=== PATIENT | female | born 1940 | race Caucasian/White ===

== ENCOUNTER 2020-03-19 05:17 | Inpatient (IN) | payer OTHER ==
--- OUTSIDE RECORDS SUMMARY | 2020-03-19 05:20 | XMS REPORT ---
:1940 Author Organization eClinicalWorks Care Team Providers Name Role Phone Pati Cruzh Provider Role Unavailable Allergies, Adverse Reactions, Alerts Substance Reaction Event Type N.K.D.A. Info Not Available Non Drug Allergy Problems Problem Type Condition Code Onset Dates Condition Statu s Problem Low back pain, unspecified back pain M54.5 Active laterality, unspecified chronicity, with sciatica presence unspecified Problem Atrial fibrillation, unspecified I48.91 Active type Problem Hypothyroidism, unspecified type E03.9 Active Assessment Medicare annual wellness visit, Z00.00 Active subsequent Problem Type 2 diabetes mellitus with E11.8 Active complication, without long-term current use of insulin Problem HTN (hypertension), benign I10 A ctive Problem Stage 3 chronic kidney disease N18.3 Active Problem Peripheral edema R60.9 Active Problem GERD without esophagitis K21.9 Act gloria Problem Mixed hyperlipidemia E78.2 Active Problem Other chronic pain G89.29 Active Medications Medication Code Code Instructions Start End Status Dosage System Date Date Gabapentin [facility] 03479825523 300 MG Orally Active 1 c apsule Three times a day Simvastatin [facility] 80585604832 20 MG Orally Active 1 t ablet Once a day in the evening [place] [facility] 69725899740 10-325 MG Active 1 tablet Orally every 6 as needed hrs Eliquis 5 mg [facility] 46694250939 5 mg by mouth Active o ne tablet twice daily Ranitidine HCl [facility] 00642611606 150 MG Orally Active 1 capsule Once a day at bedtime Losartan [facility] 21441172519 100 MG Orally Active 1 tab let Potassium Once a day Losartan [facility] 21148782037 100 MG Orally Active 1 tab let Potassium Once a day Carvedilol [facility] 41795176298 3.125 MG Orally Active 1 tab BID Acyclovir [facility] 86426297583 800 MG Orally Active 1 ta blet Once a day Levothyroxine [facility] 63276890500 125 MCG Orally Active 1 tablet Sodium Once a day on an empty stomach in the morning Tizanidine HCl [facility] 10431794624 4 MG Orally Active 1 tablet Three times a as needed day Carvedilol [facility] 27427320433 3.125 MG Orally Active 1 tab BID Simvastatin [facility] 00639299331 20 MG Orally Active 1 t ablet Once a day in the evening Amlodipine [facility] 84218925902 10 MG Orally Active 1 ta blet Besylate Once a day Furosemide [facility] 60760173130 20 MG Orally Active 1 ta blet Once a day Results No Known Results Summary Purpose eClinicalWorks Submission
--- OUTSIDE RECORDS SUMMARY | 2020-03-19 05:20 | XMS REPORT | Continuity of Care Document ---
:[address] [facility] [place] [place] Address [address] [place] [address] Care Team Providers Name Role Phone Unavailable Unavailable Unavailable Problems Condition Condition Condition Status Onset Resolution Last Treating Co mments Source Name Details Category Date Date Treatment Clinician Date Atrial Atrial Problem Active [facility] fibrillati fibrillati Felicia kes - on, on, Memoria unspecifie unspecifie l d type d type Outpati ent Clinics Low back Low back Problem [facility], [facility] - unspecifie unspecifie Me moria d back d back l pain pain Outpati laterality laterality en t , , Clinics unspecifie unspecifie d d chronicity chronicity , with , with sciatica sciatica presence presence unspecifie unspecifie d d Mixed Mixed Problem Active [facility] hyperlipid hyperlipid Felicia kes - emia emia Memoria l Outpati ent Clinics Other Other Problem Active [facility] chronic chronic [facility] - pain pain [facility] l [facility] Clinics HTN HTN Problem Active [facility] (hypertens (hypertens Felicia kes - ion), ion), Memoria benign benign l Outpati ent Clinics Hypothyroi Hypothyroi Problem Active [facility] dism, dism, [facility] - unspecifie unspecifie Me moria d type d type l Outpati ent Clinics Peripheral Peripheral Problem Active [facility] edema edema [facility] - Memoria l [facility] Clinics GERD GERD Problem Active [facility] without without [facility] - esophagiti esophagiti Me moria s s l Outpati ent Clinics Type 2 Type [address] [facility] diabetes diabetes [facility] - mellitus mellitus Memori a with with l complicati complicati Ou tpati on, on, ent without without Clinics long-term long-term current current use of use of insulin insulin Stage 3 Stage [address] [facility] chronic chronic [facility] - kidney kidney Memoria disease disease l Outpati ent Clinics Medicare Medicare Diagnosis Active [facility] annual annual [facility] - wellness wellness Memori a visit, visit, l subsequent subsequent [facility] ent [facility] Allergies, Adverse Reactions, Alerts This patient has no known allergies or adverse reactions. Medications Ordered Filled Start Stop Current Ordering Indication Dosage Frequency Signature Comments Components Source Medication Medication Date Date Medication? Clinician (SIG) Name Name Losartan Losartan Yes Terell [address] Potassium Potassium [facility] Sim[facility] Simvastatin Yes Terell [address] [facility] Cruz in the [facility] - evening [facility] ent [facility] Carvedilol Carvedilol Yes Terell [address] [facility] Cruz [facility] Chamberino Chamberino Yes Terell [address] [facility] Cruz as needed [facility] ent [facility] Acyclovir Acyclovir Yes Terell [address] [facility] Cruz [facility] Levothyroxi Levothyroxi Yes Terell [address] [facility] ne Sodium ne Sodium Cruz on an Domingo es - empty Memoria stomach in l the [facility] ent Clinics Furosemide Furosemide Yes Terell [address] [facility] Cruz [facility] ent [facility] Eliquis 5 Eliquis 5 Yes Terell one tablet [facility] mg mg Cruz [facility] ent [facility] Tizanidine Tizanidine Yes Terell [address] HCl HCl Cruz as needed [facility] Amlodipine Amlodipine Yes Terell [address] Besylate Besylate Cruz [facility] Gabapentin Gabapentin Yes Terell [address] [facility] Cruz [facility] ent [facility] Ranitidine Ranitidine Yes Teerll [address] [facility] HCl HCl Cruz at bedtime [facility] ent [facility] Simvastatin Simvastatin Yes Terell [address] [facility] in the [facility] - evening [facility] ent [facility] Losartan Losartan Yes Terell [address] Potassium Potassium Cruz [facility] Carvedilol Carvedilol Yes Terell [address] [facility] Cruz [facility] Immunizations Ordered Filled Immunization Date Status Comments Sour e Immunization Name Name FluAD FluAD 2019-06-[address] [facility]00 [facility] Procedures This patient has no known procedures. Encounters Start End Encounter Admission Attending Care Care Encounter Source Date/Time Date/Time Type Type Clinicians Facility Department ID 2020-02-21 2020-02-21 [facility] [id number] [facility] 14:00[facility]00 14:00:00 [facility] Medicine Outpati ent Clinics 2020-02-21 2020-02-21 [facility] [id number] 14:00:00 14:00:00 [facility] Medicine Outpati ent Clinics 2020-02-16 2020-02-16 [facility] [id number] 14:05:00 14:05:00 t [facility] Medicine Outpati ent Clinics 2019-12-04 2019-12-04 [facility] [id number] 15:27:00 15:27:00 [facility] Medicine Outpati ent Clinics 2019-11-21 2019-11-21 [facility] [id number] 14:45:00 14:45:00 [facility] Medicine Outpati ent Clinics 2019-11-08 2019-11-08 [facility] [id number] 16:47:00 16:47:00 [facility] Medicine Outpati ent Clinics 2019-11-03 2019-11-03 [facility] [id number] 14:29:00 14:29:00 [facility] Medicine Outpati ent Clinics 2019-06-15 2019-06-15 [facility] [id number] [facility] 14:45:00 14:45:00 [facility] Medicine Outpati ent Clinics 2019-03-16 2019-03-16 [facility] [id number] 14[facility]00:00 14:00:00 [facility] Medicine Outpati ent Clinics 2019-01-19 2019-01-19 [facility] [id number] 14:45:00 14:45:00 t [facility] Medicine Outpati ent Clinics 2018-12-14 2018-12-14 [facility] [id number] 14[facility]14:00 14:14:00 t [facility] Medicine Outpati ent Clinics 2018-12-14 2018-12-14 [facility] [id number] [facility] 14[facility]00:00 14:00:00 [facility] Medicine Outpati ent Clinics 2018-11-07 2018-11-07 [facility] [id number] 13:32:00 13:32:00 t [facility] Medicine Outpati ent Clinics 2018-09-15 2018-09-15 [facility] [id number] 14:00:00 14:00:00 [facility] Outpati ent Clinics Results This patient has no known results.
--- OUTSIDE RECORDS SUMMARY | 2020-03-19 05:20 | XMS REPORT ---
[...] type Problem Hypothyroidism, unspecified type E03.9 Active Problem Type 2 diabetes mellitus with E11.8 Active complication, without long-term current use of insulin Assessment Peripheral edema R60.9 Active Problem HTN (hypertension), benign I10 A ctive Assessment Microalbuminuria R80.9 Active Assessment History of fall within past 90 days Z91.81 Active Problem Stage 3 chronic kidney disease N18.3 Active Problem Peripheral edema R60.9 Active Problem GERD without esophagitis K21.9 Act gloria Problem Mixed hyperlipidemia E78.2 Active Problem Other chronic pain G89.29 Active Assessment Other chronic pain G89.29 Active Assessment GERD without esophagitis K21.9 Act gloria Assessment Stage 3 chronic kidney disease N18.3 Active Assessment Low back pain, unspecified back pain M54.5 Active laterality, unspecified chronicity, with sciatica presence unspecified Assessment Mixed hyperlipidemia E78.2 Active Assessment HTN (hypertension), benign I10 A ctive Assessment Type 2 diabetes mellitus with E11.8 Active complication, without long-term current use of insulin Assessment Atrial fibrillation, unspecified I48.91 Active type Assessment Hypothyroidism, unspecified type E03.9 Active Medications Medication Code Code Instructions Start End Status Dosage System Date Date Carvedilol ND 43041555591 3.125 MG Active 1 tab Orally BID Indomethacin ER ND 73336362106 75 MG Orally Active 1 capsule Once a day PRN with food SEVERE PAIN or milk Ranitidine HCl ND 52225232672 150 MG Orally Inactiv e 1 capsule Once a day at bedtime Levothyroxine ND 27598190345 125 MCG Orally Active 1 tablet Sodium Once a day on an empty stomach in the morning Tizanidine HCl [facility] 41124448886 4 MG Orally Active 1 tablet Three times a as needed day [place] [facility] 12292817696 10-325 MG Active 1 tablet Orally every 6 as needed hrs Levothyroxine [facility] 62137091902 125 MCG Orally Active 1 tablet Sodium Once a day on an empty stomach in the morning Losartan [facility] 52483509559 100 MG Orally Active 1 tab let Potassium Once a day Amlodipine [facility] 75314108304 10 MG Orally Active 1 ta blet Besylate Once a day Gabapentin [facility] 83353505352 300 MG Orally Active 1 c apsule Three times a day Furosemide [facility] 37505965033 20 MG Orally Active 1 ta blet Once a day Simvastatin [facility] 34546836207 20 MG Orally Active 1 t ablet Once a day in the evening PreserVision [facility] [address]-98 Active not AREDS defined Moxifloxacin HCl [facility] 96811084722 0.5 % Active 1 d rop Ophthalmic into Three times a affected day eye Acyclovir [facility] 65107726393 800 MG Orally Active 1 ta blet Once a day Eliquis 5 mg [facility] 13395317497 5 mg by mouth Active o ne tablet twice daily Results No Known Results Summary Purpose eClinicalWorks Submission
--- OUTSIDE RECORDS SUMMARY | 2020-03-19 05:20 | XMS REPORT ---
:1940 Author Organization eClinicalWorks Care Team Providers Name Role Phone Terell Cruz Provider Role Unavailable Allergies No Known Allergies Problems Problem Type Condition Code Onset Dates [...] Start End Status Dosage System Date Date Furosemide [facility] 15628496505 20 MG Orally Active 1 ta blet Once a day Carvedilol [facility] 21404742015 3.125 MG Orally Active 1 tab BID Tizanidine HCl [facility] 14080391292 4 MG Orally Active 1 tablet Three times a as needed day Levothyroxine [facility] 42687548746 125 MCG Orally Active 1 tablet Sodium Once a day on an empty stomach in the morning Levothyroxine [facility] 05618443933 150 MCG Orally Active 1 tablet Sodium Once a day on an empty stomach in the morning Amlodipine [facility] 61268860113 10 MG Orally Active 1 ta blet Besylate Once a day Simvastatin [facility] 24091967710 20 MG Orally Active 1 t ablet Once a day in the evening Gabapentin [facility] 73875876010 300 MG Orally Active 1 c apsule Three times a day Losartan [facility] 51429060706 100 MG Orally Active 1 tab let Potassium Once a day [place] [facility] 71122733559 10-325 MG Active 1 tablet Orally every 6 as needed hrs Eliquis 5 mg [facility] 61490297716 5 mg by mouth Active o ne tablet twice daily Acyclovir [facility] 31723265622 800 MG Orally Active 1 ta blet Once a day Ranitidine HCl [facility] 44836973642 150 MG Orally Active 1 capsule Once a day at bedtime Losartan [facility] 86753925931 100 MG Orally Active 1 tab let Potassium Once a day Carvedilol [facility] 10613684121 3.125 MG Orally Active 1 tab BID Simvastatin [facility] 20874038516 20 MG Orally Active 1 t ablet Once a day in the evening Results No Known Results Summary Purpose eClinicalWorks Submission
[2020-03-19 05:51] LABS: Absolute Lymphocytes (CBC) 0.9 K/uL (0.7-4.9); Basophils % 0.4 % (0-1.3); Hematocrit 36.3 % (36.0-45.0); Lymphocytes % 10.6 % (15.3-44.8); RBC Red Blood Cell Count 3.93 M/uL (3.86-4.86)
[2020-03-19 05:56] LABS: Protime INR 2.33
[2020-03-19 06:08] LABS: ALT/SGPT 13 U/L (12-78); AST/SGOT 14 U/L (15-37); Albumin 3.4 g/dL (3.4-5.0); Alkaline Phosphatase 107 U/L (45-117); BUN Blood Urea Nitrogen 19 mg/dL (7-18); Bicarbonate 25 mmol/L (21-32); Bilirubin Direct 0.3 mg/dL (0-0.2); Bilirubin Total 1.1 mg/dL (0.2-1.0); Glucose Level 173 mg/dL (74-106); Magnesium 1.7 mg/dL (1.8-2.4); NT PRO-BNP 2907 pg/mL (<450); Potassium 4.5 mmol/L (3.5-5.1); Protein, Total 7.1 g/dL (6.4-8.2); Sodium Level 137 mmol/L (136-145); Troponin (Emerg Dept Use Only) < 0.02 ng/mL (0.0-0.045)
--- NOTE | 2020-03-19 06:38 | ER ---
Nurse's Notes [facility] Name: Claudia Myers Age: 80 yrs Sex: Female : 1940 Arrival Date: 03/19/2020 Time: 05:18 Bed 6 Private MD: Diagnosis: CHF Exacerbation Presentation: 03/19 05:25 Chief complaint: EMS states: "pt is reporting shortness of breath today with RANDY ankle jd3 swelling. she is not reporting any pain, just that it is hard to breath.". Coronavirus screen: Proceed with normal triage. Ebola Screen: Patient negative for fever greater than or equal to 101.5 degrees Fahrenheit, and additional compatible Ebola Virus Disease symptoms. Initial Sepsis Screen: Does the patient meet any 2 criteria? No. Patient's initial sepsis screen is negative. Does the patient have a suspected source of infection? No. Patient's initial sepsis screen is negative. Risk Assessment: Do you want to hurt yourself or someone else? Patient reports no desire to harm self or others. Onset of symptoms was March 19, 2020. 05:25 Method Of Arrival: EMS: [facility] jd3 05:25 Acuity: KEVIN 3 jd3 05:25 Care prior to arrival: IV initiated. 20 GA, in the right antecubital area. jd3 Triage Assessment: 05:35 Respiratory: Reports shortness of breath at rest Onset: The symptoms/episode jd3 began/occurred this morning, the patient has mild shortness of breath Denies cough. Historical: - Allergies: 05:33 Bactrim DS; jd3 - Home Meds: 05:33 amlodipine 10 mg tab 1 tab once daily [Active]; losartan 100 mg oral tab 1 tab once jd3 daily [Active]; levothyroxine 125 mcg tab 1 tab once daily [Active]; simvastatin 20 mg Oral tab 1 tab once daily [Active]; carvedilol 3.125 mg oral tab 1 tab 2 times per day [Active]; gabapentin 300 mg oral cap 1 cap 3 times per day [Active]; Eliquis 5 mg oral tab 1 tab 2 times per day [Active]; - PMHx: 05:33 Diabetes - NIDDM; Hypertension; Atrial Fib; jd3 - PSHx: 05:33 Cholecystectomy; Appendectomy; jd3 - Immunization history:: Adult Immunizations up to date. - Social history:: Smoking status: Patient denies any tobacco usage or history of. Screenin:36 Abuse screen: Denies threats or abuse. Nutritional screening: No deficits noted. jd3 Tuberculosis screening: No symptoms or risk factors identified. Fall Risk Ambulatory Aid- None/Bed Rest/Nurse Assist (0 pts). Gait- Normal/Bed Rest/Wheelchair (0 pts) Mental Status- Oriented to own ability (0 pts). Total Lazaro Fall Scale indicates No Risk (0-24 pts). Assessment: 05:33 General: Appears in no apparent distress. uncomfortable, Behavior is cooperative, jd3 appropriate for age, anxious. Pain: Denies pain. Neuro: Level of Consciousness is awake, alert, obeys commands, Oriented to person, place, time, situation. Cardiovascular: Capillary refill < 3 seconds Patient's skin is warm and dry. Rhythm is atrial fibrillation. Respiratory: Reports shortness of breath at rest Airway is patent Respiratory effort is even, unlabored, Respiratory pattern is regular, symmetrical, Breath sounds with wheezes bilaterally. GI: No signs and/or symptoms were reported involving the gastrointestinal system. : No signs and/or symptoms were reported regarding the genitourinary system. EENT: No signs and/or symptoms were reported regarding the EENT system. Derm: Skin is intact, Skin is dry, Skin is normal, Skin temperature is warm. Musculoskeletal: Circulation, motion, and sensation intact. Range of motion: intact in all extremities. 06:15 Reassessment: Patient appears in no apparent distress at this time. Patient and/or jd3 family updated on plan of care and expected duration. Pain level reassessed. Patient is alert, oriented x 3, equal unlabored respirations, skin warm/dry/pink. Patient states symptoms have improved. Vital Signs: 05:29 BP 184 / 50; Pulse 75; Resp 19 S; Temp 98.7(TE); Pulse Ox 95% on R/A; Weight 81.65 kg jd3 (R); Height 5 ft. 6 in. (167.64 cm) (R); Pain 0/10; 06:14 BP 164 / 46; Pulse 62; Resp 19 S; Pulse Ox 97% on 2 lpm NC; jd3 08:52 BP 159 / 53; Pulse 67; Resp 17; Pulse Ox 99% on 2 lpm NC; jl7 05:29 Body Mass Index 29.05 (81.65 kg, 167.64 cm) jd3 ED Course: 05:18 Patient arrived in ED. sg 05:22 Jose Jeffery MD is Attending Physician. 7 05:24 Lino Benitez, RN is Primary Nurse. jd3 05:29 Triage completed. jd3 05:30 Arm band placed on. jd3 05:36 Patient has correct armband on for positive identification. Bed in low position. Call [facility] light in reach. Side rails up X 1. court recording monitor on. Pulse ox on. NIBP on. 05:45 Maintain EMS IV. Dressing intact. Good blood return noted. Site clean \\T\\ dry. Gauge \\T\\ raisa 3 site: 20 G right AC. IV. 05:54 XRAY Chest (1 view) In Process Unspecified. EDMS 06:37 Toan Freire is Hospitalizing Provider. [facility] 08:50 No provider procedures requiring assistance completed. Patient admitted, IV remains in [facility] place. intact, No redness/swelling at site. Administered Medications: 06:39 Drug: Lasix 20 mg Route: IVP; Site: right antecubital; jd3 Outcome: 06:38 Decision to Hospitalize by Provider. [facility] 08:50 Admitted to Tele accompanied by [facility], via wheelchair, room 219, with chart, Report [facility] called to MARK Jane 08:50 Condition: stable 08:50 Discharge instructions given to patient, Instructed on the need for admit, Demonstrated understanding of instructions. 09:14 Patient left the ED. hb Signatures: Dispatcher [employer] EDSD Todd Flores, MARK FLORES Neli Barragan RN RN Ronen Robles RN RN [facility] Lino Benitez, Jose Lux RN, MD MD [facility]
--- NOTE | 2020-03-19 06:38 | EDPHYS ---
Physician Documentation [facility] Name: Claudia Myers Age: 80 yrs Sex: Female : 1940 Arrival Date: 03/19/2020 Time: 05:18 Bed 6 Private MD: ED Physician Jose Jeffery HPI: 03/19 05:29 This 80 yrs old Female presents to ER via EMS with complaints of Shortness Of mh7 Breath. 05:29 The patient has shortness of breath at rest. Onset: The symptoms/episode began/occurred mh7 yesterday. Duration: The symptoms are intermittent, with no pattern. The patient's shortness of breath is aggravated by nothing, is alleviated by nothing. Associated signs and symptoms: Pertinent negatives: chest pain, non-productive cough, productive cough, diaphoresis, dizziness, fever, hemoptysis, loss of consciousness, nausea, numbness in extremities, visual changes, vomiting. Severity of symptoms: At their worst the symptoms were moderate just prior to arrival, in the emergency department the symptoms have improved moderately. The patient has experienced similar episodes in the past, a few times. Historical: - Allergies: 05:33 Bactrim DS; jd3 - Home Meds: 05:33 amlodipine 10 mg tab 1 tab once daily [Active]; losartan 100 mg oral tab 1 tab once jd3 daily [Active]; levothyroxine 125 mcg tab 1 tab once daily [Active]; simvastatin 20 mg Oral tab 1 tab once daily [Active]; carvedilol 3.125 mg oral tab 1 tab 2 times per day [Active]; gabapentin 300 mg oral cap 1 cap 3 times per day [Active]; Eliquis 5 mg oral tab 1 tab 2 times per day [Active]; - PMHx: 05:33 Diabetes - NIDDM; Hypertension; Atrial Fib; jd3 - PSHx: 05:33 Cholecystectomy; Appendectomy; jd3 - Immunization history:: Adult Immunizations up to date. - Social history:: Smoking status: Patient denies any tobacco usage or history of. ROS: 05:29 Constitutional: Negative for fever, chills, and weight loss, Eyes: Negative for injury, mh7 pain, redness, and discharge, ENT: Negative for injury, pain, and discharge, Neck: Negative for injury, pain, and swelling, Cardiovascular: Negative for chest pain, palpitations, and edema, Abdomen/GI: Negative for abdominal pain, nausea, vomiting, diarrhea, and constipation, Back: Negative for injury and pain, : Negative for injury, bleeding, discharge, and swelling, MS/Extremity: Negative for injury and deformity, Skin: Negative for injury, rash, and discoloration, Neuro: Negative for headache, weakness, numbness, tingling, and seizure, Psych: Negative for depression, anxiety, suicide ideation, homicidal ideation, and hallucinations, Allergy/Immunology: Negative for hives, rash, and allergies, Endocrine: Negative for neck swelling, polydipsia, polyuria, polyphagia, and marked weight changes, Hematologic/Lymphatic: Negative for swollen nodes, abnormal bleeding, and unusual bruising. Exam: 05:29 Constitutional: This is a well developed, well nourished patient who is awake, alert, mh7 and in no acute distress. Head/Face: Normocephalic, atraumatic. Eyes: Pupils equal round and reactive to light, extra-ocular motions intact. Lids and lashes normal. Conjunctiva and sclera are non-icteric and not injected. Cornea within normal limits. Periorbital areas with no swelling, redness, or edema. ENT: Nares patent. No nasal discharge, no septal abnormalities noted. Tympanic membranes are normal and external auditory canals are clear. Oropharynx with no redness, swelling, or masses, exudates, or evidence of obstruction, uvula midline. Mucous membranes moist. Neck: Trachea midline, no thyromegaly or masses palpated, and no cervical lymphadenopathy. Supple, full range of motion without nuchal rigidity, or vertebral point tenderness. No Meningismus. Chest/axilla: Normal chest wall appearance and motion. Nontender with no deformity. No lesions are appreciated. Cardiovascular: Regular rate and rhythm with a normal S1 and S2. No gallops, murmurs, or rubs. Normal PMI, no JVD. No pulse deficits. 05:29 Abdomen/GI: Soft, non-tender, with normal bowel sounds. No distension or tympany. No guarding or rebound. No evidence of tenderness throughout. Back: No spinal tenderness. No costovertebral tenderness. Full range of motion. Skin: Warm, dry with normal turgor. Normal color with no rashes, no lesions, and no evidence of cellulitis. MS/ Extremity: Pulses equal, no cyanosis. Neurovascular intact. Full, normal range of motion. Neuro: Awake and alert, GCS 15, oriented to person, place, time, and situation. Cranial nerves II-XII grossly intact. Motor strength 5/5 in all extremities. Sensory grossly intact. Cerebellar exam normal. Normal gait. Psych: Awake, alert, with orientation to person, place and time. Behavior, mood, and affect are within normal limits. 05:29 Respiratory: the patient does not display signs of respiratory distress, Respirations: normal, Breath sounds: rhonchi, that are mild, are located in both bases, Respiratory rate: normal 05:29 Chest/axilla: 7 05:29 Cardiovascular: Rate: normal, Rhythm: irregularly irregular, Pulses: no pulse deficits are appreciated, Heart sounds: normal, normal S1and S2, Edema: 1+ edema to level of , pedal edema, that is mild, JVD: is not appreciated. 05:29 ECG was reviewed by the Attending Physician. Vital Signs: 05:29 BP 184 / 50; Pulse 75; Resp 19 S; Temp 98.7(TE); Pulse Ox 95% on R/A; Weight 81.65 kg jd3 (R); Height 5 ft. 6 in. (167.64 cm) (R); Pain 0/10; 06:14 BP 164 / 46; Pulse 62; Resp 19 S; Pulse Ox 97% on 2 lpm NC; jd3 08:52 BP 159 / 53; Pulse 67; Resp 17; Pulse Ox 99% on 2 lpm NC; jl7 05:29 Body Mass Index 29.05 (81.65 kg, 167.64 cm) jd3 MDM: 05:36 Patient medically screened. 7 06:35 Differential diagnosis: Anemia Anxiety Reaction asthma, Bronchitis CHF exacerbation, mh7 Chronic Obstructive Pulmonary Disease Myocardial Infarction pneumonia, Pneumothorax pulmonary edema. Data reviewed: vital signs, nurses notes, EMS record, old medical records, lab test result(s), cardiac enzymes, CBC, electrolytes, EKG, radiologic studies, plain films. Data interpreted: color television console monitor: rate is 62 beats/min, rhythm is irregularly irregular, Interpretation: atrial fibrillation, Pulse oximetry: on 4L(s) per nasal canula, is 97 %. Interpretation: acceptable. Counseling: I had a detailed discussion with the patient and/or guardian regarding: the historical points, exam findings, and any diagnostic results supporting the discharge/admit diagnosis, the presence of at least one elevated blood pressure reading (>120/80) during this emergency department visit, lab results, radiology results, the need for further work-up and treatment in the hospital. 03/19 05:29 Order name: Basic Metabolic Panel; Complete Time: 06:26 03/19 05:29 Order name: CBC with Diff; Complete Time: 06:04 03/19 05:29 Order name: LFT's; Complete Time: 06:26 03/19 05:29 Order name: Magnesium; Complete Time: 06:26 03/19 05:29 Order name: NT PRO-BNP; Complete Time: 06:26 03/19 05:29 Order name: PT-INR; Complete Time: 06:04 03/19 05:29 Order name: Troponin (emerg Dept Use Only); Complete Time: 06:26 03/19 05:29 Order name: XRAY Chest (1 view) [facility] 03/19 05:29 Order name: EKG; Complete Time: 05:30 03/19 05:29 Order name: Cardiac monitoring; Complete Time: 05:37 7 03/19 05:29 Order name: EKG - Nurse/Tech; Complete Time: 05:37 03/19 05:29 Order name: IV Saline Lock; Complete Time: 05:44 03/19 05:29 Order name: Labs collected and sent; Complete Time: 05:44 03/19 05:29 Order name: O2 Per Protocol; Complete Time: 05:37 03/19 05:29 Order name: O2 Sat Monitoring; Complete Time: 05:37 mh7 EC:29 Rate is 68 beats/min. Rhythm is irregularly irregular. QRS [place] is Normal. CO interval mh7 is normal. QRS interval is normal. QT interval is normal. No Q waves. T waves are Normal. No ST changes noted. Clinical impression: Atrial Fibrillation. Administered Medications: 06:39 Drug: Lasix 20 mg Route: IVP; Site: right antecubital; jd3 Disposition: 03/19/20 06:38 Hospitalization ordered by Toan Freire for Observation. Preliminary diagnosis is CHF Exacerbation. - Bed requested for Telemetry/MedSurg (observation). - Status is Observation. hb - Condition is Stable. - Problem is an acute exacerbation. - Symptoms have improved. Signatures: Dispatcher [employer] Sola Salazar RN RN Neli Barragan RN RN Lino Khalil RN RN jJose Alfaro MD MD mh7 Corrections: (The following items were deleted from the chart) 08: 06:38 Hospitalization Ordered by Toan Freire for Observation. Preliminary diagnosis dw is CHF Exacerbation. Bed requested for Telemetry/MedSurg (observation). Status is Observation. Condition is Stable. Problem is an acute exacerbation. Symptoms have improved. mh7 09:14 08:14 03/19/2020 06:38 Hospitalization Ordered by Toan Freire for Observation. hb Preliminary diagnosis is CHF Exacerbation. Bed requested for Telemetry/MedSurg (observation). Status is Observation. Condition is Stable. Problem is an acute exacerbation. Symptoms have improved. dw
[2020-03-19] MEDS ORDERED: FUROSEMIDE 20 MG/ 2ML VIAL ONE (06:42)
--- NOTE | 2020-03-19 08:29 | RAD REPORT ---
EXAM DESCRIPTION: RAD - Chest Single View - 03/19/2020 5:54 am CLINICAL HISTORY: SOB, bilateral lower extremity swelling COMPARISON: July 2017 TECHNIQUE: AP portable chest image was obtained 03/19/2020 5:54 am . FINDINGS: Diffuse interstitial opacification is present increased from a baseline prominent pattern. Patchy alveolar opacities are present. Heart size is upper normal. Vasculature is engorged. No measu rable pleural effusion and no pneumothorax. No acute bony abnormality seen. No acute aortic findings suspected. IMPRESSION: Heart, vasculature and lung markings are all prominent. Given the chest findings and lower extremity clinical history, CHF/volume overload is favored. Bilate ral patchy pneumonia is not excluded but felt to be lesser in likelihood.
[2020-03-19] MEDS ORDERED: ONDANSETRON 4 MG/2 ML VIAL IV PRN (09:23)
[2020-03-19] MEDS: APIXABAN 5 MG TABLET PO SCH ×2 (09:48→20:48)
[2020-03-19] MEDS ORDERED: DIPHENHYDRAMINE 25 MG TAB/CAP PO PRN (10:18)
[2020-03-19] MEDS: FUROSEMIDE 40 MG/4 ML VIAL IV SCH ×2 (10:28→16:29)
[2020-03-19] MEDS: carvediloL 6.25 MG TAB PO SCH ×2 (10:29→20:46)
[2020-03-19 11:29] VITALS: BMI 29.5
[2020-03-19] MEDS: FEXOFENADINE 180 MG TAB PO SCH (12:48)
[2020-03-19] MEDS: HYDROCODONE/APAP 10/325 TAB PO PRN (16:29)
[2020-03-19] MEDS ORDERED: METOPROLOL TAR 25 MG TAB PO SCH (18:00)
[2020-03-19] MEDS: ATORVASTATIN 10 MG TAB PO SCH (20:45)
[2020-03-19] MEDS: AMLODIPINE 10 MG TAB PO SCH (20:46)
[2020-03-19] MEDS ORDERED: HOME MED 1 EA UNK (Simvastatin [Simvastatin] 1 TAB) PO SCH (21:00)
[2020-03-19] MEDS: TIZANIDINE 4 MG TABLET PO PRN (21:41)
--- NOTE | 2020-03-19 22:19 | HP ---
Date of Admission: 03/19/2020 Primary Care Physician: Dr. Cruz. Chief Complaint: Shortness of breath. Code Status: Full code. Patient does not have any medical power of nursing director or living will. History Of Present Illness: Patient is a 80-year-old female with past medical history of hyperlipide jeremy, hypertension, leaky heart valve, atrial fibrillation, congestive heart failure, hypothyroidism, comes in with sudden shortness of breath. Patient reports worsening shortness of breath over the pas t day or so. Denies any changes in her medications. She only takes a Lasix every third day as neede d and she does not weigh herself daily. She does report some swelling in her legs, which is worse th an usual. She does sleep in a recliner and report orthopnea. Otherwise, denies any chest pain, feve r, chills, cough. No exposure to the norovirus at this time. Patient came into the ER for further e valuation. Her symptoms are constant, moderate, progressively worsening. In the ER, she was found t o have blood pressure of 184/50. She was afebrile. She was started on supplemental oxygen. Her krystle st x-ray showed prominent markings, CHF, volume overload findings. Workup revealed a BNP of 2900. W maria ines blood cell count was normal. Troponin was negative. Patient was then referred for admission. When seen in the ER, she was awake, alert, oriented x3, in some mild distress. Past Medical History: Hypertension; atrial fibrillation, on anticoagulation; congestive heart failur e; hypothyroidism; hyperlipidemia. Past Surgical History: Cholecystectomy. Allergies: SULFAMETHOXAZOLE, TRIMETHOPRIM. Medications: As per medication reconciliation list, reviewed. Social History: Patient denies any tobacco use, alcohol use, or illicit drug use. Patient lives in a mobile home in her son's backyard. She is fairly independent in her activities of daily living. D oes use a walker. Family History: Mother had aortic aneurysm. Diabetes also runs in the family. Review of Systems: Eleven point system reviewed, negative except as per HPI. Physical Examination: Vital Signs: Temperature 98.7, heart rate 75, blood pressure 184/50, respirations 19, O2 of 95% on 2 L via nasal cannula. General: Awake, alert, oriented x3. Elderly female, in some mild respiratory distress, ill-appearin ru HEENT: Normocephalic, atraumatic. PERRLA, EOMI. Moist mucous membranes. Poor dentition. Conjunct ivae are anicteric. Neck: Supple, trachea midline. CV: S1, S2. Patient has a systolic murmur 3/6. Peripheral pulses are present. Respiratory: Diminished breath sounds at the bases. Some crackles heard. No wheezing or stridor. Patient is slightly tachypneic. No use of accessory muscles. Gastrointestinal: Abdomen is soft, nontender, nondistended. Positive bowel sounds. No guarding or rigidity. Extremities: No clubbing, cyanosis. Patient has lower extremity edema, worse on the right. No calf tenderness. Neuro: Cranial nerves 3 through 12 intact grossly. No focal neurological deficits. Speech is humberto l. Strength is symmetric, bilateral upper and lower extremities. Sensation is intact to light touch . Skin: No rashes. Normal skin turgor. Psych: Mood is okay. Affect is full. Insight and judgment are good. Laboratory Data: Sodium 137, potassium 4.5, chloride 106, CO2 of 25, BUN 19, creatinine 1.13, glucos e 173, calcium 8.5, magnesium 1.7, AST 14, ALT 13, total bilirubin 1.1, alkaline phosphatase 107. Tr oponin less than 0.02. BNP 2907, albumin 3.4. INR 2.33. WBC 8.8, H and H 12.1 and 36.3, platelets 181, neutrophils 80%. Chest x-ray, heart vasculature and lung markings are prominent given the chest findings and lower ext remity clinical history. CHF volume overload is favored. Bilateral patchy pneumonia is not excluded , but felt to be lesser in likelihood, personally reviewed. Assessment: 80-year-old female with: 1.Acute congestive heart failure, exacerbation likely diastolic dysfunction. Last echocardiogram fr om 2017 shows EF of 77%. She has aortic sclerosis, but no stenosis. Also has mild atrial, mitral, a nd tricuspid regurgitation. We will start on CHF guidelines with Lasix, beta-saul, and ARB. Case discussed with Dr. Esqueda. He recommends doubling up the dose of Coreg. We will continue on fluid restrictions and sodium restriction. Patient does not follow any dietary restrictions at home, willard y weights. We will monitor I's and O's strictly. 2.Essential hypertension, not well controlled. We will give her home medications now. 3.Atrial fibrillation, permanent. We will resume Eliquis. Continue Coreg for rate control. 4.Mixed hyperlipidemia. We will continue statin. 5.Hypothyroidism. Continue Synthroid. 6.Hypomagnesemia. We will replace and monitor. 7.Seasonal allergies. Patient takes 25 mg of Benadryl twice a day. We will switch over to Sunitha and use Benadryl only as needed. 8.Chronic back pain, midline, without sciatica. Patient takes [place]. Does see Pain Management as a n outpatient. We will resume home medications. 9.Deep vein thrombosis prophylaxis. Patient is already on Eliquis. Plan: Admit patient to Med-Surg, place as inpatient. Length of stay greater than 2 midnights. RICHIE Voice ID: [id number]
[2020-03-20] MEDS: ACETAMINOPHEN 500 MG TAB PO PRN ×2 (02:52→14:33)
[2020-03-20 05:44] LABS: Absolute Lymphocytes (CBC) 1.3 K/uL (0.7-4.9); Basophils % 0.4 % (0-1.3); Hematocrit 34.6 % (36.0-45.0); Lymphocytes % 21.1 % (15.3-44.8); MPV 8.5 fL (7.6-11.3)
[2020-03-20 05:50] LABS: Albumin 3.3 g/dL (3.4-5.0); Bilirubin Total 1.2 mg/dL (0.2-1.0); Magnesium 1.9 mg/dL (1.8-2.4); Potassium 4.3 mmol/L (3.5-5.1); Protein, Total 6.6 g/dL (6.4-8.2)
[2020-03-20] MEDS: LEVOTHYROXINE SOD 0.125 MG TAB PO SCH (06:12)
--- NOTE | 2020-03-20 06:30 | CON ---
Date of Consultation: 03/19/[address] The patient admitted to Dr. Glez's service on 03/19/2020. Reason For Consultation: CHF exacerbation. History Of Present Illness: Ms. Myers is a 80-year-old white woman, has had a history of hypertensio n, diabetes, atrial fibrillation. She came in with shortness of breath and pedal edema that has been going on for about a week or 2. She denied any fever or chills or cough. Denied any PND, orthopnea , but has had pedal edema, shortness of breath with exertion. Denied any chest pain, nausea, vomitin g, diaphoresis. By the time, I saw her, she has received IV Lasix and she is already slightly improv ing. Allergies: SHE IS ALLERGIC TO BACTRIM. Review of Systems: Negative. Social History: Negative. Family History: Negative. Medications: At home include, 1.Norvasc. 2.Losartan. 3.Levothyroxine. 4.Zocor. 5.Carvedilol. 6.Gabapentin. 7.Eliquis 5 mg b.i.d. Past Medical History: Include, hypertension, hypothyroidism, dyslipidemia, diabetes, atrial fibrilla tion, and neuropathy. Physical Examination: Vital Signs: When I saw her, her heart rate was 66, her blood pressure was 175/74. She was in atria l fibrillation rate of 66. She weighed 182 pounds, her O2 saturation was 96% on 3 L of nasal cannula . HEENT: Negative. Neck: Supple with no bruits. Chest: Reveals rales at both bases. Cardiac: Revealed atrial fibrillation. No murmurs, gallops, or rubs. Abdomen: Benign. Extremities: Revealed 2+ edema to the knees. Skin: Dry and intact. Neurological: She was nonfocal. Diagnostic Data: Showed a creatinine of 1.13. Her hemoglobin was 12.1. Her INR was 2.33. Her gluc ose was 173. Magnesium was 1.7. Her potassium was 4.5. Her troponin was negative. Her BNP was 290 7. Chest x-ray was consistent with congestive heart failure versus volume overload. Impression And Plan: 1.Acute congestive heart failure, most likely diastolic. 2.Chronic atrial fibrillation. 3.Hypertension. 4.Dyslipidemia. 5.Diabetes. 6.Neuropathy. The patient is already on Eliquis for her atrial fibrillation. Her rate is well controlled. Her hyp ertension is poorly controlled and I think with her congestive heart failure I would like to double u p her Coreg to 6.25 b.i.d. Continue IV Lasix at 40 mg b.i.d. Get an echocardiogram today. I think doing an outpatient stress test would be reasonable on her. We will see how she does with diuresis. Hopefully, we will send her home tomorrow depending what the echocardiogram shows. KENZIE/DASHA Voice ID: [id number] Report ID: [id number]
--- NOTE | 2020-03-20 07:59 | ECHO ---
HEIGHT: 5 ft 6 in WEIGHT: 182 lb 14.4 oz DATE OF STUDY: 03/19/[address]: Niko Glez MD 2-DIMENSIONAL: YES M.MODE: YES DOPPLER: YES COLOR FLOW: YES TDS: NO PORTABLE: NO DEFINITY: NO BUBBLE STUDY: NO DIAGNOSIS: CONGESTIVE HEART FAILURE CARDIAC HISTORY: CATHERIZATION: NO SURGERY: NO PROSTHETIC VALVE: NO PACEMAKER: NO MEASUREMENTS (cm) DIASTOLIC (NORMALS) SYSTOLIC (NORMALS) IVSd 1.2 (0.6-1.2) LA Diam 4.0 (1.9-4.0) LVEF 76% LVIDd 5.3 (3.5-5.7) LVIDs 2.9 (2.0-3.5) %FS 45% LVPWd 1.2 (0.6-1.2) Ao Diam 2.6 (2.0-3.7) 2 DIMENSIONAL ASSESSMENT: RIGHT ATRIUM: NORMAL LEFT ATRIUM: NORMAL RIGHT VENTRICLE: NORMAL LEFT VENTRICLE: NORMAL TRICUSPID VALVE: NORMAL MITRAL VALVE: MITRAL ANNULAR CALCIFICATION PULMONIC VALVE: NORMAL AORTIC VALVE: STENOTIC PERICARDIAL EFFUSION: NONE AORTIC ROOT: NORMAL LEFT VENTRICULAR WALL MOTION: NORMAL EJECTION FRACTION. DOPPLER/COLOR FLOW: MILD TRICUSPID REGURGITATION - MILD AORTIC REGURGITATION. MODERATE AORTIC STENOSIS - AREA 1.2 CENTIMETERS SQUARED. COMMENTS: NORMAL LEFT VENTRICULAR SIZE AND FUNCTION. MITRAL ANNULAR CALCIFICATION. MODERATE AORTIC STENOSIS 1.3 CENTIMETERS SQUARED. MILD TRICUSPID REGURGITATION, RIGHT VENTRICULAR SYSTOLIC PRESSURE 45mmHg - MODERATE PULMONARY HYPERTENSION. MILD AORTIC REGURGITATION. TECHNOLOGIST: ARISTEO GOLDSTEIN
[2020-03-20] MEDS: APIXABAN 5 MG TABLET PO SCH ×2 (08:17→22:02)
[2020-03-20] MEDS: carvediloL 6.25 MG TAB PO SCH ×2 (08:17→22:00)
[2020-03-20] MEDS: FEXOFENADINE 180 MG TAB PO SCH (08:17)
[2020-03-20] MEDS: FUROSEMIDE 40 MG/4 ML VIAL IV SCH ×2 (08:17→16:33)
[2020-03-20] MEDS: LOSARTAN POTASSIUM 50 MG TABLET PO SCH (08:18)
[2020-03-20] MEDS: POTASSIUM CL SA 10 MEQ TAB PO SCH (08:18)
[2020-03-20] MEDS: HYDROCODONE/APAP 10/325 TAB PO PRN ×2 (08:20→16:32)
--- NOTE | 2020-03-20 12:26 | EKG ---
Test Date: 2020-03-19 Test Time: 05:22:54 Rail Assembler: MEASUREMENT RESULTS: Intervals: Rate: 68 AL: QRSD: 94 QT: 386 QTc: 410 [place]: P: AL: QRS: 35 T: 51 INTERPRETIVE STATEMENTS: Atrial fibrillation Nonspecific ST and T wave abnormality, probably digitalis effect Abnormal ECG Compared to ECG 08/10/2017 23:49:33 Ventricular premature complex(es) no longer present Left bundle-branch block no longer present ST (T wave) deviation still present Electronically Signed On 03-20-20 12:22:36 CDT by Hamlet Esqueda
--- NOTE | 2020-03-20 15:27 | RAD REPORT ---
EXAM DESCRIPTION: CT - Angio Aorta For Dissection - 03/20/2020 2:57 pm CLINICAL HISTORY: abd pain, chest pain, r.out dissection COMPARISON: Portable chest March 19, CT abdomen and pelvis July 2017 TECHNIQUE: Dynamically enhanced 3 mm thick images of the chest, abdomen, and upper pelvis were obtai cyrus during administration of approximately 150mL Isovue 370 IV contrast. Sagittal and coronal reconst ruction images were generated using MIP and reviewed. Exam utilizes a protocol to evaluate entire cou rse of the aorta. All CT scans are performed using dose optimization technique as appropriate and may include automated exposure control or mA/KV adjustment according to patient size. FINDINGS: Aorta is normal in diameter with no dissection or other acute aortic findings. Calcificati ons are present along the silverman of the aorta relatively mild for age. Reconstruction images show no s ignificant findings. No significant pulmonary artery finding. Borderline to mild cardiomegaly is present. No pericardial e ffusion. No dense mass or consolidation. Ground-glass opacification is seen throughout the lung springer. This i s most likely part of failure/ volume overload process. Posterior gutter atelectasis noted on the lef t. Small bilateral pleural effusions are present. Hilar and subcarinal mild lymphadenopathy is probably reactive. No chest wall mass or abnormal axilla ry lymphadenopathy. Very dense calcifications are seen in the celiac and splenic arteries without significant stenosis id entifiable. Patient has significant superior mesenteric artery calcification with probable 60% stenos is 15 mm from the origin. Dense renal artery calcifications are present. Stenosis is questionable. Fo llow-up could be obtained if the patient has uncontrolled hypertension. Liver and spleen show no focal abnormalities. Pancreatic atrophy is present without mass. Gallbladder is absent. No biliary tree dilatation. Moderate stool volume through much of the colon. Rectum is di stended. No acute bowel process. Uterus and ovaries show no suspicious findings. No free air, free fl uid or inflammatory stranding. No urinary bladder abnormality. No mass or bulky lymphadenopathy. Postsurgical changes are evident along the anterior abdominal wall. No hernia defects seen. IMPRESSION: Negative CT scan of the aorta for aneurysm, dissection or other acute finding. Atheroscl erotic calcifications are present but mild for age. Failure/volume overload changes are seen in the lung parenchyma with small bilateral pleural effusion s. 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 No other significant findings on chest, abdomen and upper pelvis examination.
--- NOTE | 2020-03-20 19:21 | PN ---
Date of Progress Note: 03/20/2020 Subjective: Patient seen and examined. Chart reviewed and case discussed with RN. Patient now comp laining of abdominal pain and headache, otherwise states shortness of breath has improved. Medications: List reviewed. Physical Examination: Vital Signs: Temperature 97.9, heart rate 84, blood pressure 152/66, respirations 16, O2 97% on room air. General: Awake, alert, oriented x3. Elderly female, some mild distress. CV: S1, S2. Irregularly irregular. Peripheral pulses present. Respiratory: Minimal diminished breath sounds. Crackles have improved. No wheezing or stridor. Gastrointestinal: Abdomen is soft, nontender, nondistended. Positive bowel sounds. No guarding or rigidity. Extremities: No clubbing or cyanosis. Patient does have peripheral edema 2+. Laboratory Data: Sodium 139, potassium 4.3, chloride 104, CO2 of 29, BUN 18, creatinine 1.15, glucos e 120, calcium 8.4, magnesium 1.9. WBC 5.9, H and H 11.7 and 34.6, platelets 180. Assessment: 1.A 80-year-old female with acute congestive heart failure exacerbation, diastolic dysfunction. Ech ocardiogram done shows ejection fraction of 76%. Patient also has moderate aortic stenosis, tricuspi d regurgitation, and moderate pulmonary hypertension. 2.Moderate aortic stenosis. 3.Moderate pulmonary hypertension. 4.Abdominal pain, generalized. We will obtain CT scan of the abdomen to rule out aortic dissection. 5.Essential hypertension. Blood pressure medications were adjusted, better controlled, now in the 1 50s. 6.Atrial fibrillation, chronic, permanent. Continue Eliquis. Continue Coreg for rate control. 7.Mixed hyperlipidemia. Continue statin. 8.Hypothyroidism. Continue Synthroid. 9.Hypomagnesemia, replaced. Continue to monitor. 10.Seasonal allergies. Continue Sunitha. 11.Chronic back pain, midline, without sciatica. Continue [place]. Patient sees Pain Management as a n outpatient. Patient is on chronic narcotics. 12.Deep venous thrombosis prophylaxis. Continue Eliquis. Plan: Follow up on CT angio without CT dissection. Likely discharge in the 24 to 48 hours depending on clinical response. Congestive heart failure, improving. Patient recommended to follow up with P geronimoology as outpatient for her pulmonary hypertension. SA/MODL Voice ID: [id number] Report ID: [id number]
--- NOTE | 2020-03-20 20:57 | PN ---
Date of Progress Note: 03/20/2020 Summary: Ms. Myers was admitted with congestive heart failure exacerbation. Yesterday, her Coreg wa s doubled. She was getting 40 mg IV Lasix b.i.d. Echocardiogram which was done yesterday revealed n ormal ejection fraction, normal wall motion. No evidence of diastolic dysfunction or systolic dysfun ction. So she had congestive heart failure with normal ejection fraction. I think the beta-saul therapy and Lasix is the mainstay of therapy. She has diuresed well and her O2 saturation is adequat e. From my standpoint, she can probably go home in the next day or 2. I will continue to follow her along. Her laboratories are pending. I think doing an outpatient Lexiscan on her would be reasonab le to rule out CAD, especially in the view of congestive heart failure with normal EF. KENZIE/DASHA Voice ID: [id number] Report ID: [id number]
[2020-03-20] MEDS: TIZANIDINE 4 MG TABLET PO PRN (22:01)
[2020-03-20] MEDS: ATORVASTATIN 10 MG TAB PO SCH (22:02)
[2020-03-20] MEDS: AMLODIPINE 10 MG TAB PO SCH (22:02)
[2020-03-21] MEDS: HYDROCODONE/APAP 10/325 TAB PO PRN ×2 (01:54→12:12)
[2020-03-21 04:34] LABS: Albumin 3.3 g/dL (3.4-5.0); Bilirubin Total 0.8 mg/dL (0.2-1.0); Potassium 4.7 mmol/L (3.5-5.1); Protein, Total 6.6 g/dL (6.4-8.2)
[2020-03-21] MEDS: LEVOTHYROXINE SOD 0.125 MG TAB PO SCH (05:23)
[2020-03-21] MEDS: POTASSIUM CL SA 10 MEQ TAB PO SCH (07:56)
[2020-03-21] MEDS: FEXOFENADINE 180 MG TAB PO SCH (07:56)
[2020-03-21] MEDS: FUROSEMIDE 40 MG/4 ML VIAL IV SCH ×2 (07:57→16:00)
[2020-03-21] MEDS: LOSARTAN POTASSIUM 50 MG TABLET PO SCH (07:57)
[2020-03-21] MEDS: carvediloL 6.25 MG TAB PO SCH (07:58)
[2020-03-21 08:07] VITALS: O2SAT 94
[2020-03-21] MEDS: APIXABAN 5 MG TABLET PO SCH (08:10)
[2020-03-21] MEDS: ACETAMINOPHEN 500 MG TAB PO PRN (08:54)
[2020-03-21 17:21] VITALS: BP 155/74
[2020-03-21 17:29] VITALS: TEMP 98
--- NOTE | 2020-03-21 23:19 | DS ---
Date of Discharge: 03/21/2020 Consultants: Dr. Esqueda with Cardiology. Admitting Diagnoses: 1.Acute congestive heart failure, diastolic dysfunction. 2.Essential hypertension. 3.Atrial fibrillation, permanent, chronic. 4.Mixed hyperlipidemia. 5.Hypothyroidism. 6.Hypomagnesemia. 7.Seasonal allergies. 8.Chronic back pain, midline, without sciatica. Discharge Diagnoses: 1.Acute diastolic heart failure, improved, EF of 76%. 2.Moderate aortic stenosis. 3.Moderate pulmonary hypertension. 4.Peripheral vascular disease with 60% stenosis in the SMA and possible renal artery stenosis. 5.Abdominal pain, generalized. CT angio aorta negative for aortic dissection. 6.Essential hypertension, improved, stable. 7.Atrial fibrillation, chronic, permanent on Eliquis, Coreg dose doubled to 6.25. 8.Mixed hyperlipidemia, continue statin, stable. 9.Hypothyroidism, continue Synthroid, stable. 10.Hypomagnesemia, replaced. 11.Seasonal allergies. 12.Chronic back pain, midline, without sciatica, on chronic narcotics. Hospital Course: Patient is a 80-year-old female with past medical history of hyperlipidemia, hypert ension, known valvular disease which turned out to be aortic stenosis, atrial fibrillation, congestiv e heart failure, hypothyroidism, came in with sudden shortness of breath. Patient was admitted to [facility] for acute CHF exacerbation. Chest x-ray showed prominent markings and volume overload. 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 Cardiac enzymes were negative. Patient was seen by Cardiology. She was st arted on CHF guidelines. She was diuresed. Patient stated that she had not been taking her Lasix da juan antonio. She was only taking as needed maybe once or twice a week. Patient had echocardiogram, which sh owed EF of 76%, moderate aortic stenosis. Tricuspid regurg and moderate pulmonary hypertension. CT angio was also done to rule out aortic aneurysm as the patient complained of abdominal pain and chest pain radiating to the back, which was negative for aortic dissection did show some stenosis in the S MA at 60% and possible renal artery stenosis. Discussed with Cardiology who recommended outpatient w orkup and also the patient to have Lexiscan as an outpatient. Patient also recommended to establish care with sticker machine operator for her moderate pulmonary hypertension. Her medications have been adjusted. Amlodipine dose has been decreased to 5 mg and carvedilol has been doubled up to 6.25. She will be on Lasix and potassium supplements. Patient to follow up with primary care physician in 2-3 days, f ollow up with sas developer, Dr. Esqueda in 2 weeks. Establish care with sticker machine operator 2-4 weeks. Re turn to ER for worsening condition. Diet: Heart healthy, low-sodium 1500 mL fluid restriction. Activity: As tolerated. Medications: As per medication reconciliation list. Physical Examination: Vital signs: Stable. General: Awake, alert, oriented x3. No acute distress elderly female. CV: S1, S2. Irregularly irregular. Respiratory: Moving air well, improved from previous. Gastrointestinal: Abdomen is soft, nontender, nondistended. Positive bowel sounds. Extremities: No clubbing, cyanosis. Patient has pedal edema. Neurologic: Nonfocal. Total time spent discharging patient was 39 minutes. /DASHA Voice ID: [id number] Report ID: [id number]
== END 2020-03-21 18:41 | disposition home or self-care (01) | DRG 292 ==
LOC: ER 05:17 → ERHOLD 07:17 → 2ND 08:50
PROVIDERS: ADMIT Family Medicine; ATTEND Family Medicine
DX: I11.0 Hypertensive heart disease with heart failure (principal); I48.21 Permanent atrial fibrillation; I50.33 Acute on chronic diastolic (congestive) heart failure; I70.0 Atherosclerosis of aorta; I34.0 Nonrheumatic mitral (valve) insufficiency; I27.20 Pulmonary hypertension, unspecified; E11.40 Type 2 diabetes mellitus with diabetic neuropathy, unspecified; E78.2 Mixed hyperlipidemia; E11.51 Type 2 diabetes mellitus with diabetic peripheral angiopathy without gangrene; E03.9 Hypothyroidism, unspecified; E83.42 Hypomagnesemia; J30.2 Other seasonal allergic rhinitis; G89.29 Other chronic pain; M54.9 Dorsalgia, unspecified; R06.02 Shortness of breath; Z20.828 Contact with and (suspected) exposure to other viral communicable diseases; Z79.890 Hormone replacement therapy; Z79.899 Other long term (current) drug therapy; Z90.49 Acquired absence of other specified parts of digestive tract; Z79.01 Long term (current) use of anticoagulants; Z88.1 Allergy status to other antibiotic agents
CPT/HCPCS: 36415; 71045; 71275; 74175; 80048; 80053; 80076; 83735; 83880; 84484; 85025; 85610; 93005; 93306; 94760; 96374; 99285; J1940; J2405; Q9967; U0002

== ENCOUNTER 2020-04-01 14:57 | Inpatient (IN) | payer OTHER ==
[2020-04-01 15:36] LABS: Protime INR 2.26
[2020-04-01 15:37] LABS: Absolute Lymphocytes (CBC) 0.9 K/uL (0.7-4.9); Basophils % 0.3 % (0-1.3); Hematocrit 38.4 % (36.0-45.0); Lymphocytes % 14.6 % (15.3-44.8); RBC Red Blood Cell Count 4.27 M/uL (3.86-4.86)
--- NOTE | 2020-04-01 15:50 | RAD REPORT ---
EXAM DESCRIPTION: RAD - Chest Single View - 04/01/2020 3:42 pm CLINICAL HISTORY: DYSPNEA COMPARISON: Portable March 19, 2020 TECHNIQUE: AP portable chest image was obtained 04/01/2020 3:42 pm . FINDINGS: No peripheral mass consolidation. Interstitial markings are prominent but diminished jimbo red to the comparison study. Heart size is upper normal. Vasculature is mildly prominent. No measurab le pleural effusion and no pneumothorax. No acute bony abnormality seen. No acute aortic findings alvarez pected. IMPRESSION: No focal mass or consolidation. Heart, vasculature and lung markings are mildly prominent but less pronounced than seen March 19. Minimal failure or volume overload should be considered and can be monitored.
[2020-04-01] MEDS ORDERED: FUROSEMIDE 100 MG/10 ML VIAL IV ONE (16:26)
[2020-04-01] MEDS ORDERED: ONDANSETRON 4 MG/2 ML VIAL ONE (16:37)
[2020-04-01 16:43] LABS: ALT/SGPT 12 U/L (12-78); Albumin 3.7 g/dL (3.4-5.0); Alkaline Phosphatase 103 U/L (45-117); BUN Blood Urea Nitrogen 26 mg/dL (7-18); Bicarbonate 24 mmol/L (21-32); Bilirubin Direct 0.3 mg/dL (0-0.2); Bilirubin Total 1.1 mg/dL (0.2-1.0); Glucose Level 146 mg/dL (74-106); NT PRO-BNP 2592 pg/mL (<450); Protein, Total 7.3 g/dL (6.4-8.2); Sodium Level 120 mmol/L (136-145); Troponin (Emerg Dept Use Only) < 0.02 ng/mL (0.0-0.045)
[2020-04-01 16:44] LABS: AST/SGOT 22 U/L (15-37); Potassium 5.5 mmol/L (3.5-5.1)
--- OUTSIDE RECORDS SUMMARY | 2020-04-01 17:03 | XMS REPORT ---
[...] End Status Dosage System Date Date Furosemide [facility] 37551543101 20 MG Orally Active 1 ta blet Once a day Carvedilol [facility] 32613218713 3.125 MG Orally Active 1 tab BID Tizanidine HCl [facility] 57533740279 4 MG Orally Active 1 tablet Three times a as needed day Levothyroxine [facility] 21388268448 125 MCG Orally Active 1 tablet Sodium Once a day on an empty stomach in the morning Levothyroxine [facility] 58570113058 150 MCG Orally Active 1 tablet Sodium Once a day on an empty stomach in the morning Amlodipine [facility] 30361463435 10 MG Orally Active 1 ta blet Besylate Once a day Simvastatin [facility] 54982990825 20 MG Orally Active 1 t ablet Once a day in the evening Gabapentin [facility] 14702047096 300 MG Orally Active 1 c apsule Three times a day Losartan [facility] 77252754809 100 MG Orally Active 1 tab let Potassium Once a day [place] [facility] 38766644728 10-325 MG Active 1 tablet Orally every 6 as needed hrs Eliquis 5 mg [facility] 80809011554 5 mg by mouth Active o ne tablet twice daily Acyclovir [facility] 06563974277 800 MG Orally Active 1 ta blet Once a day Ranitidine HCl [facility] 07850466335 150 MG Orally Active 1 capsule Once a day at bedtime Losartan [facility] 12977890536 100 MG Orally Active 1 tab let Potassium Once a day Carvedilol [facility] 63461990738 3.125 MG Orally Active 1 tab BID Simvastatin [facility] 02355409372 20 MG Orally Active 1 t ablet Once a day in the evening Results No Known Results Summary Purpose eClinicalWorks Submission
--- OUTSIDE RECORDS SUMMARY | 2020-04-01 17:03 | XMS REPORT | Continuity of Care Document ---
:1940 Author Organization [facility] Address [address] [place] [address] Care Team Providers Name Role Phone Unavailable [...] Memoria disease disease l Outpati ent Clinics Allergies, Adverse Reactions, Alerts This patient has no known allergies or adverse reactions. Medications Ordered Filled Start Stop Current Ordering Indication Dosage Frequency Signature Comments Components Source Medication Medication Date Date Medication? Clinician (SIG) Name Name Losartan Losartan Yes Terell [address] Potassium Potassium [facility] Simvastatin Simvastatin Yes Terell [address] [facility] in the [facility] - evening [facility] Carvedilol Carvedilol Yes Terell [address] [facility] [employer] Yes Terell [address] [facility] needed [facility] Acyclovir Acyclovir Yes Terell [address] [facility] Levothyroxi Levothyroxi Yes Terell [address] [facility] ne Sodium ne Sodium Cruz on an [place] es - empty Memoria stomach in the [facility] ent Clinics Furosemide Furosemide Yes Terell [address] [facility] ent [facility] Eliquis 5 Eliquis 5 Yes Terell one tablet [facility] mg mg [facility] Tizanidine Tizanidine Yes Terell [address] HCl HCl Cruz as needed [facility] Amlodipine Amlodipine Yes Terell [address] Besylate Besylate Cruz [facility] - [facility] Gabapentin Gabapentin Yes Terell [address] [facility] - Memoria [facility] Ranitidine Ranitidine Yes Terell [address] HCl HCl Cruz at bedtime [facility] Simvastatin Simvastatin Yes Terell [address] [facility] in the [facility] - evening [facility] Losartan Losartan Yes Terell [address] Potassium Potassium [facility] ent [facility] Carvedilol Carvedilol Yes Terell [address] [facility] - [facility]oria [facility] Immunizations Ordered Filled Immunization Date Status Comments Sourc e Immunization Name Name Tim Dumont 2019-06-[address] [facility] Procedures This patient has no known procedures. Encounters Start End Encounter Admission Attending Care Care Encounter Source Date/Time Date/Time Type Type Clinicians Facility Department ID 2020-03-27 2020-03-27 [facility] [id number] [address] 11[facility]00 11:06:00 [place] [facility] Family Medicine l Medicine Outpati ent Clinics 2020-02-21 2020-02-21 [facility] [id number] 14:00:00 14:00:00 [place] [facility] Medicine l Medicine Outpati ent Clinics 2020-02-21 2020-02-21 [facility] [id number] 14:00:00 14:00:00 [place] [employer] [facility] Medicine l Medicine Outpati ent Clinics 2020-02-16 2020-02-16 [facility] [id number] 14:05:00 14:05:00 [place] [employer] [facility] [employer] [facility] Medicine l Medicine Outpati ent Clinics 2019-12-04 2019-12-04 [facility] [id number] 15:27:00 15:27:00 [place] [employer] [facility] [employer] [facility] Medicine l Medicine Outpati ent Clinics 2019-11-21 2019-11-21 [facility] [id number] 14:45:00 14:45:00 [place] [employer] [facility] [employer] [facility] Medicine l Medicine Outpati ent Clinics 2019-11-08 2019-11-08 [facility] [id number] 16:47:00 16:47:00 t [place] [employer] [facility] [employer] [facility] Medicine l Medicine Outpati ent Clinics 2019-11-03 2019-11-03 [facility] [id number] 14:29:00 14:29:00 [place] [employer] [facility] Medicine l Medicine Outpati ent Clinics 2019-06-15 2019-06-15 [facility] [id number] 14:45:00 14:45:00 [place] [employer] [facility] Medicine l Medicine Outpati ent Clinics 2019-03-16 2019-03-16 [facility] [id number] 14:00:00 14:00:00 [place] [employer] [facility] l Medicine Outpati ent Clinics 2019-01-19 2019-01-19 [facility] [id number] 14:45:00 14:45:00 t [facility] Medicine Outpati ent Clinics 2018-12-14 2018-12-14 [facility] [id number] 14:14:00 14:14:00 t [facility] Medicine Outpati ent Clinics 2018-12-14 2018-12-14 [facility] [id number] [facility] 14:00:00 14:00:00 t [facility] Medicine Outpati ent Clinics 2018-11-07 2018-11-07 [facility] [id number] 13:32:00 13:32:00 t [facility] Medicine Outpati ent Clinics 2018-09-15 2018-09-15 [facility] [id number] [facility] 14:00:00 14:00:00 t [facility] Medicine Outpati ent Clinics Results This patient has no known results.
--- OUTSIDE RECORDS SUMMARY | 2020-04-01 17:04 | XMS REPORT ---
:1940 Author Organization eClinicalWorks Care Team Providers Name Role Phone [facility] Provider Role Unavailable Allergies No Known Allergies [...] Problem Other chronic pain G89.29 Active Medications No Known Medications Results No Known Results Summary Purpose eClinicalWorks Submission
--- OUTSIDE RECORDS SUMMARY | 2020-04-01 17:04 | XMS REPORT ---
[...] End Status Dosage System Date Date Gabapentin [facility] 86756657412 300 MG Orally Active 1 c apsule Three times a day Simvastatin [facility] 28912172594 20 MG Orally Active 1 t ablet Once a day in the evening [place] [facility] 83382250581 10-325 MG Active 1 tablet Orally every 6 as needed hrs Eliquis [address] [facility] 64261572397 5 mg by mouth Active o ne tablet twice daily Ranitidine HCl [facility] 18991527211 150 MG Orally Active 1 capsule Once a day at bedtime Losartan [facility] 19105990103 100 MG Orally Active 1 tab let Potassium Once a day Losartan [facility] 71681815809 100 MG Orally Active 1 tab let Potassium Once a day Carvedilol [facility] 44127773482 3.125 MG Orally Active 1 tab BID Acyclovir [facility] 27481476888 800 MG Orally Active 1 ta blet Once a day Levothyroxine [facility] 72899735907 125 MCG Orally Active 1 tablet Sodium Once a day on an empty stomach in the morning Tizanidine HCl [facility] 38349172339 4 MG Orally Active 1 tablet Three times a as needed day Carvedilol [facility] 65894942193 3.125 MG Orally Active 1 tab BID Simvastatin [facility] 35510072605 20 MG Orally Active 1 t ablet Once a day in the evening Amlodipine [facility] 25678380229 10 MG Orally Active 1 ta blet Besylate Once a day Furosemide [facility] 42057879995 20 MG Orally Active 1 ta blet Once a day Results No Known Results Summary Purpose eClinicalWorks Submission
--- OUTSIDE RECORDS SUMMARY | 2020-04-01 17:04 | XMS REPORT ---
[...] Status Dosage System Date Date Carvedilol ND 84789359265 3.125 MG Active 1 tab Orally BID Indomethacin ER ND 90763285236 75 MG Orally Active 1 capsule Once a day PRN with food SEVERE PAIN or milk Ranitidine HCl ND 24081783131 150 MG Orally Inactiv e 1 capsule Once a day at bedtime Levothyroxine ND 01984640844 125 MCG Orally Active 1 tablet Sodium Once a day on an empty stomach in the morning Tizanidine HCl [facility] 92476900742 4 MG Orally Active 1 tablet Three times a as needed [place] [facility] 59608906727 10-325 MG Active 1 tablet Orally every 6 as needed hrs Levothyroxine [facility] 33252028311 125 MCG Orally Active 1 tablet Sodium Once a day on an empty stomach in the morning Losartan [facility] 55935535521 100 MG Orally Active 1 tab let Potassium Once a day Amlodipine [facility] 93634787854 10 MG Orally Active 1 ta blet Besylate Once a day Gabapentin [facility] 46751729387 300 MG Orally Active 1 c apsule Three times a day Furosemide [facility] 91766868490 20 MG Orally Active 1 ta blet Once a day Simvastatin [facility] 17833538272 20 MG Orally Active 1 t ablet Once a day in the evening PreserVision [facility] [address]-59 Active not AREDS defined Moxifloxacin HCl [facility] 13372026744 0.5 % Active 1 d rop Ophthalmic into Three times a affected day eye Acyclovir [facility] 46867451321 800 MG Orally Active 1 ta blet Once a day Eliquis 5 mg [facility] 74316884783 5 mg by mouth Active o ne tablet twice daily Results No Known Results Summary Purpose eClinicalWorks Submission
--- NOTE | 2020-04-01 17:09 | EDPHYS ---
Physician Documentation [facility] Name: Claudia Myers Age: 80 yrs Sex: Female : 1940 Arrival Date: 04/01/2020 Time: 14:59 Bed 6 Private MD: ED Physician Billy Lozano HPI: 04/01 16:00 This 80 yrs old Female presents to ER via EMS with complaints of Shortness Of jr8 Breath. 16:00 The patient has shortness of breath at rest. Onset: The symptoms/episode began/occurred jr8 gradually, 1 week(s) ago, and became worse. Duration: The symptoms are continuous. The patient's shortness of breath is aggravated by light activity. Associated signs and symptoms: Pertinent positives: chest pain. Severity of symptoms: At their worst the symptoms were moderate in the emergency department the symptoms are unchanged. The patient has experienced a previous episode. The patient has been recently seen by a physician:. Patient seen and admitted for CHF late February. Has been doing well since d/c from hospital until last week. Stated that she started to become short of breath again and now having left sided chest pressure . Historical: - Allergies: 15:11 Bactrim DS; hb - PMHx: 15:11 Atrial Fib; Diabetes - NIDDM; Hypertension; hb - PSHx: 15:11 Cholecystectomy; Appendectomy; hb - Immunization history:: Adult Immunizations up to date. - Social history:: Smoking status: Patient denies any tobacco usage or history of. ROS: 16:00 Eyes: Negative for injury, pain, redness, and discharge, ENT: Negative for injury, jr8 pain, and discharge, Neck: Negative for injury, pain, and swelling, Abdomen/GI: Negative for abdominal pain, nausea, vomiting, diarrhea, and constipation, Back: Negative for injury and pain, MS/Extremity: Negative for injury and deformity, Skin: Negative for injury, rash, and discoloration, Neuro: Negative for headache, weakness, numbness, tingling, and seizure. 16:00 Cardiovascular: Positive for chest pain, edema. 16:00 Respiratory: Positive for dyspnea on exertion, shortness of breath. Exam: 16:00 Eyes: Pupils equal round and reactive to light, extra-ocular motions intact. Lids and jr8 lashes normal. Conjunctiva and sclera are non-icteric and not injected. Cornea within normal limits. Periorbital areas with no swelling, redness, or edema. ENT: Nares patent. No nasal discharge, no septal abnormalities noted. Tympanic membranes are normal and external auditory canals are clear. Oropharynx with no redness, swelling, or masses, exudates, or evidence of obstruction, uvula midline. Mucous membranes moist. Neck: Trachea midline, no thyromegaly or masses palpated, and no cervical lymphadenopathy. Supple, full range of motion without nuchal rigidity, or vertebral point tenderness. No Meningismus. Cardiovascular: Regular rate and rhythm with a normal S1 and S2. No gallops, murmurs, or rubs. Normal PMI, no JVD. No pulse deficits. Abdomen/GI: Soft, non-tender, with normal bowel sounds. No distension or tympany. No guarding or rebound. No evidence of tenderness throughout. Back: No spinal tenderness. No costovertebral tenderness. Full range of motion. Skin: Warm, dry with normal turgor. Normal color with no rashes, no lesions, and no evidence of cellulitis. MS/ Extremity: Pulses equal, no cyanosis. Neurovascular intact. Full, normal range of motion. Neuro: Awake and alert, GCS 15, oriented to person, place, time, and situation. Cranial nerves II-XII grossly intact. Motor strength 5/5 in all extremities. Sensory grossly intact. Cerebellar exam normal. Normal gait. 16:00 Respiratory: the patient does not display signs of respiratory distress, Respirations: normal, symetrical, no use of accessory muscles, no grunting, no evidence of nasal flaring, no appreciated paradoxical movements, no pursed lip breathing, no retractions, no shallow respirations, no splinting, no tachypnea, Breath sounds: rales, that are mild, are located in both bases. Vital Signs: 15:01 BP 169 / 47; Pulse 52; Resp 21; Temp 99.1; Pulse Ox 96% on R/A; Weight 83.91 kg; Height hb 5 ft. 7 in. (170.18 cm); Pain 5/10; 16:30 BP 156 / 49; Pulse 50; Resp 22; Pulse Ox 95% on R/A; hb 17:30 BP 148 / 68; Pulse 62; Resp 23; Pulse Ox 96% on R/A; hb 18:30 BP 140 / 74; Pulse 70; Resp 21; Pulse Ox 95% on R/A; hb 15:01 Body Mass Index 28.97 (83.91 kg, 170.18 cm) hb MDM: 15:04 Patient medically screened. 17:07 Data reviewed: vital signs, nurses notes, lab test result(s), EKG, radiologic studies, jr8 plain films. Data interpreted: Pulse oximetry: on room air is 95 %. Interpretation: normal. Counseling: I had a detailed discussion with the patient and/or guardian regarding: the historical points, exam findings, and any diagnostic results supporting the discharge/admit diagnosis, lab results, radiology results, the need for further work-up and treatment in the hospital. 04/01 15:04 Order name: Basic Metabolic Panel; Complete Time: 16:51 04/01 15:04 Order name: CBC with Diff; Complete Time: 15:53 04/01 15:04 Order name: LFT's; Complete Time: 16:51 04/01 15:04 Order name: Magnesium; Complete Time: 16:51 04/01 15:04 Order name: NT PRO-BNP; Complete Time: 16:51 04/01 15:04 Order name: PT-INR; Complete Time: 15:53 04/01 15:04 Order name: Troponin (emerg Dept Use Only); Complete Time: 16:51 04/01 15:04 Order name: XRAY Chest (1 view); Complete Time: 15:53 04/01 17:11 Order name: Uric Acid; Complete Time: 18:20 04/01 17:11 Order name: Urine Sodium Random; Complete Time: 18:07 04/01 17:11 Order name: Urine Potassium Random; Complete Time: 18:07 04/01 15:04 Order name: EKG; Complete Time: 15:05 04/01 15:04 Order name: Cardiac monitoring; Complete Time: 15:39 04/01 15:04 Order name: EKG - Nurse/Tech; Complete Time: 15:39 04/01 15:04 Order name: IV Saline Lock; Complete Time: 15:39 04/01 15:04 Order name: Labs collected and sent; Complete Time: 15:39 06 15:04 Order name: O2 Per Protocol; Complete Time: 15:39 8 04/01 15:04 Order name: O2 Sat Monitoring; Complete Time: 15:39 Administered Medications: 16:18 Drug: Lasix 60 mg Route: IVP; Site: right wrist; hb 16:32 Drug: Zofran (Ondansetron) 4 mg Route: IVP; Site: right wrist; hb 17:09 Not Given (Physician Discretion): NS 0.9% 1000 ml IV at 75 ml/hr continuous 8 17:54 Drug: Kayexalate 30 grams Route: PO; hb 17:54 Drug: NS 0.9% 1000 ml Route: IV; Rate: 50 ml/hr; Site: right wrist; hb 17:55 Drug: Albuterol 2.5 mg Route: Inhalation; hb 17:55 Drug: NS 0.9% 500 ml Route: IV; Rate: bolus; Site: right wrist; hb 18:15 Drug: Albuterol 2.5 mg Route: Inhalation; jl7 18:35 Drug: Albuterol 2.5 mg Route: Inhalation; jl7 Disposition: 04/01/20 17:08 Hospitalization ordered by Darryl Currie for Inpatient Admission. Preliminary diagnosis are Acute kidney failure with tubular necrosis, Systolic (congestive) heart failure. - Bed requested for Telemetry/MedSurg (Inpatient). - Status is Inpatient Admission. jd3 - Condition is Stable. - Problem is new. - Symptoms are unchanged. Addendum: 04/04/2020 06:01 Co-signature as Attending Physician, Billy Lozano MD I agree with the assessment and c dumont plan of care. Signatures: Dispatcher [employer] EDBilly Traylor MD MD cha Roszak, Josh, PA PA jr8 Neli Barragan RN RN Ronen Rodriges RN RN jl7 Nani Cain mt, Jonathon, RN RN jd3 Corrections: (The following items were deleted from the chart) 04/01 17:45 17:08 Hospitalization Ordered by Darryl Currie DO for Inpatient Admission. Preliminary mt diagnosis is Acute kidney failure with tubular necrosis; Systolic (congestive) heart failure. Bed requested for Telemetry/MedSurg (Inpatient). Status is Inpatient Admission. Condition is Stable. Problem is new. Symptoms are unchanged. jr8 22:00 17:45 04/01/2020 17:08 Hospitalization Ordered by Darryl Currie DO for Inpatient jd3 Admission. Preliminary diagnosis is Acute kidney failure with tubular necrosis; Systolic (congestive) heart failure. Bed requested for Telemetry/MedSurg (Inpatient). Status is Inpatient Admission. Condition is Stable. Problem is new. Symptoms are unchanged. mt
--- NOTE | 2020-04-01 17:09 | ER ---
Nurse's Notes [facility] Name: Claudai Myers Age: 80 yrs Sex: Female : 1940 Arrival Date: 04/01/2020 Time: 14:59 Bed 6 Private MD: Diagnosis: Acute kidney failure with tubular necrosis;Systolic (congestive) heart failure Presentation: 04/01 15:00 Chief complaint: EMS states: SOB, bilat lower extremity swelling, and left sided chest hb pressure x 2 days. 15:01 Method Of Arrival: [facility] hb 15:01 Coronavirus screen: Proceed with normal triage. Patient reports shortness of breath or hb difficulty breathing. Ebola Screen: No symptoms or risks identified at this time. Initial Sepsis Screen: Does the patient meet any 2 criteria? No. Patient's initial sepsis screen is negative. Does the patient have a suspected source of infection? No. Patient's initial sepsis screen is negative. Risk Assessment: Do you want to hurt yourself or someone else? Patient reports no desire to harm self or others. Onset of symptoms was March 31, 2020. 15:01 Acuity: KEVIN 3 hb Triage Assessment: 15:11 General: Appears in no apparent distress. Behavior is calm, cooperative. Pain: Pain hb currently is 5 out of 10 on a pain scale. EENT: No signs and/or symptoms were reported regarding the EENT system. Neuro: Level of Consciousness is awake, alert, obeys commands, Oriented to person, place, time, situation. Cardiovascular: Reports chest pain, Capillary refill < 3 seconds Patient's skin is warm and dry. 2+ edema RLE, 1+ edema LLE. Respiratory: Reports shortness of breath at rest Airway is patent Respiratory effort is mildly labored Respiratory pattern is regular, symmetrical, Onset: The symptoms/episode began/occurred yesterday, the patient has mild shortness of breath. GI: No signs and/or symptoms were reported involving the gastrointestinal system. : No signs and/or symptoms were reported regarding the genitourinary system. Derm: Skin is pink, warm \T\ dry. Musculoskeletal: No signs and/or symptoms reported regarding the musculoskeletal system. Historical: - Allergies: 15:11 Bactrim DS; hb - PMHx: 15:11 Atrial Fib; Diabetes - NIDDM; Hypertension; hb - PSHx: 15:11 Cholecystectomy; Appendectomy; hb - Immunization history:: Adult Immunizations up to date. - Social history:: Smoking status: Patient denies any tobacco usage or history of. Screenin:13 Abuse screen: Denies threats or abuse. Denies injuries from another. Nutritional hb screening: No deficits noted. Tuberculosis screening: No symptoms or risk factors identified. Fall Risk Total Lazaro Fall Scale indicates Low Risk Score (25-44 pts). Fall prevention measures have been instituted. Side Rails Up X 2 Frequent Obs/Assesments occuring As available Patient and Family Educated on Fall Prevention Program and strategies. Assessment: 15:13 General: see triage . hb 16:32 Reassessment: Pt up to bedside commode with assistance. Pt c/o nausea. MATTHEW Alcazar notified, Zofran administered as ordered. 17:30 Reassessment: Patient appears in no apparent distress at this time. Patient and/or family updated on plan of care and expected duration. Pain level reassessed. Admission ordered, awaiting room assignment at this time. 18:30 Reassessment: Patient appears in no apparent distress at this time. No changes from previously documented assessment. Patient and/or family updated on plan of care and expected duration. Pain level reassessed. 19:59 Reassessment: report attempt made. spoke with Halima FLORES who stated she will call back [facility] for report. 21:39 Reassessment: report given to Halima FLORES nurse for room 402. [facility] Vital Signs: 15:01 BP 169 / 47; Pulse 52; Resp 21; Temp 99.1; Pulse Ox 96% on R/A; Weight 83.91 kg; Height hb 5 ft. 7 in. (170.18 cm); Pain 5/10; 16:30 BP 156 / 49; Pulse 50; Resp 22; Pulse Ox 95% on R/A; hb 17:30 BP 148 / 68; Pulse 62; Resp 23; Pulse Ox 96% on R/A; hb 18:30 BP 140 / 74; Pulse 70; Resp 21; Pulse Ox 95% on R/A; hb 15:01 Body Mass Index 28.97 (83.91 kg, 170.18 cm) ED Course: 14:59 Patient arrived in ED. hb 15:01 Neli Barragan, RN is Primary Nurse. hb 15:01 [facility] jr[facility] 15:01 Billy Lozano MD is Attending Physician. jr8 15:10 Triage completed. hb 15:11 Arm band placed on. hb 15:13 Patient has correct armband on for positive identification. Bed in low position. Call hb light in reach. Side rails up X2. 15:13 Maintain EMS IV. Dressing intact. Good blood return noted. Site clean \T\ dry. Gauge \T\ hb site: 22g R wrist. 15:20 Initial lab(s) drawn, by me, sent to lab. 3 15:35 EKG done, by ED staff, reviewed by Ottoniel CASTRO. 3 15:49 XRAY Chest (1 view) In Process Unspecified. EDVT 17:08 Darryl Currie DO is Hospitalizing Provider. jr8 17:32 Urine Potassium Random Sent. 3 17:33 Urine Sodium Random Sent. 3 17:33 Uric Acid Sent. 3 Administered Medications: 16:18 Drug: Lasix 60 mg Route: IVP; Site: right wrist; hb 16:32 Drug: Zofran (Ondansetron) 4 mg Route: IVP; Site: right wrist; hb 17:09 Not Given (Physician Discretion): NS 0.9% 1000 ml IV at 75 ml/hr continuous jr8 17:54 Drug: Kayexalate 30 grams Route: PO; hb 17:54 Drug: NS 0.9% 1000 ml Route: IV; Rate: 50 ml/hr; Site: right wrist; hb 17:55 Drug: Albuterol 2.5 mg Route: Inhalation; hb 17:55 Drug: NS 0.9% 500 ml Route: IV; Rate: bolus; Site: right wrist; hb 18:15 Drug: Albuterol 2.5 mg Route: Inhalation; jl7 18:35 Drug: Albuterol 2.5 mg Route: Inhalation; jl7 Outcome: 17:08 Decision to Hospitalize by Provider. jr8 22:00 Patient left the ED. jd3 Signatures: Dispatcher [employer] EDVT Ottoniel Emanuel PA PA jr8 Neli Barragan RN RN Ronen Rodriges RN RN jl7 Rena Thurston 3 Lino Benitez RN RN jd3 Corrections: (The following items were deleted from the chart) 15:13 15:11 Cardiovascular: Capillary refill < 3 seconds Patient's skin is warm and dry. 2+ hb edema RLE, 1+ edema LLE hb
[2020-04-01] MEDS ORDERED: NA CHLORIDE 0.9% 1,000 ML ONE (17:28)
[2020-04-01] MEDS ORDERED: SOD POLYSTYREN SUL 15 GM/60 ML UCUP ONE (17:51)
[2020-04-01] MEDS ORDERED: ALBUTEROL 2.5 MG/3 ML NEB SOL ONE (17:51)
--- NOTE | 2020-04-01 18:45 | P.HP ---
Certification for Inpatient With expected LOS: >2 Midnights Patient will require the following post-hospital care: None Practitioner: I am a practitioner with admitting privileges, knowledge of patient current condition, hospital course, and medical plan of care. Services: Services provided to patient in accordance with Admission requirements found in Title 42 Section 412.3 of the Code of Federal Regulations Patient History Date of Service: 04/01/20 Primary Care Provider: aPul Reason for admission: Hyponatremia History of Present Illness: 80-year-old female with a past medical history of atrial fibrillation, type 2 diabetes, essential hypertension who presents to the emergency room with complaints of shortness of breath that occurred gradually over a week ago. Patient was also complaining of chest pain that she described as a left-sided pressure that has mostly resolved now. Patient had been admitted to the hospital in late February for complaints of congestive heart failure. In the emergency room patient is stable. She is in no distress. She is receiving a nebulizer treatment. Blood work in the emergency shows a pro BNP of 2592, Beata of 1.4, sodium of 120, potassium of 5.5. Patient takes diuretic a daily. Patient also takes Eliquis 5 mg b.i.d., Coreg 6.25 mg daily, amlodipine 5 mg at night, losartan 100 mg daily, simvastatin 40 mg daily, potassium 10 mEq daily and Lasix 20 mg daily. Due to her low sodium levels and elevated potassium as well as elevated creatinine levels patient will be admitted and further evaluated. Allergies sulfamethoxazole [From Bactrim] Allergy (Verified 08/11/17 05:03) Hives trimethoprim [From Bactrim] Allergy (Verified 08/11/17 05:03) Hives Bactrim DS Allergy (Uncoded 08/11/17 05:12) Unknown Home Medications: Apixaban [Eliquis] 1 tab PO BID 03/19/20 Hydrocodone 10/APAP 325 [[place] 10/325*] 1 tab PO Q8H PRN 03/19/20 Levothyroxine [Synthroid*] 1 tab PO [id number] 03/19/20 Losartan Potassium [Cozaar] 1 tab PO DAILY 03/19/20 Simvastatin 1 tab PO BEDTIME 03/19/20 Tizanidine HCl 1 tab PO BEDTIME PRN 03/19/20 Amlodipine [Norvasc*] 5 mg PO BEDTIME #30 tab 03/21/20 Furosemide [Lasix*] 1 tab PO DAILY #30 tab 03/21/20 Potassium Chloride 10 meq PO DAILY #30 tablet.er 03/21/20 carvediloL [Coreg*] 6.25 mg PO BID #60 tab 03/21/20 - Past Medical/Surgical History Diabetic: No -: HTN -: A.FIB -: CHF -: hypothyroidism -: Cholecystectomy Psychosocial/ Personal History: Lives at home alone - Family History Family History: Reviewed- Non-Contributory - Family History Father -: Heart disease Mother -: Heart disease - Social History Smoking Status: Never smoker Alcohol use: No CD- Drugs: No Caffeine use: No Place of Residence: Home Review of Systems General: Unremarkable Eyes: Unremarkable ENT: Unremarkable Respiratory: Shortness of Breath Cardiovascular: Unremarkable Gastrointestinal: Unremarkable Genitourinary: Unremarkable Musculoskeletal: Unremarkable Neurological: Unremarkable Physical Examination - Vital Signs Blood Pressure: 156/49 Pulse: 50 Respirations: 22 Pulse Ox (%): 95 (RA) - Physical Exam General: Alert, In no apparent distress, Oriented x3, Cooperative HEENT: Atraumatic, Normocephalic, PERRLA Neck: Supple, Other (Trachea midline) Respiratory: Clear to auscultation bilaterally, Normal air movement Cardiovascular: No edema, Normal pulses, Regular rate/rhythm, Normal S1 S2 Capillary refill: <2 Seconds Gastrointestinal: Normal bowel sounds, Soft and benign, Non-distended Musculoskeletal: No swelling, No contractures, No erythema Integumentary: No breakdown, No significant lesion, No tenderness/swelling Neurological: Normal gait, Normal speech, Normal strength at 5/5 x4 extr, Normal tone - Studies Laboratory Data (last 24 hrs) 04/01/20 17:24: Uric Acid 8.1 H 04/01/20 15:20: PT 26.3 H, INR 2.26 04/01/20 15:20: WBC 6.3, Hgb 12.8, Hct 38.4, Plt Count 196 04/01/20 15:20: Sodium 120 L, Potassium 5.5 H, BUN 26 H, Creatinine 1.47 H, Glucose 146 H, Magnesium 2.0, Total Bilirubin 1.1 H, AST 22, ALT 12, Alkaline Phosphatase 103 Assessment and Plan - Plan Impression: Hyponatremia currently taking Lasix diuretic: Shortness of breath: Acute on chronic kidney disease: Hyperkalemia: Chronic congestive heart failure: Chronic atrial fibrillation: History of type 2 diabetes mellitus currently not taking any medication with a reported hemoglobin A1c of 6.3; Essential hypertension: Plan: Hyponatremia currently taking Lasix diuretic: Patient states she takes 20 mg of Lasix daily. Will hold off on continuing Lasix. Will start IV fluids. Patient received a bolus of 500 mL so in the ER and is currently on NS at 50 mL/HR. Will continue to monitor sodium levels daily. Will continue telemetry. Shortness of breath: Patient received breathing treatment in the ER. Her ER room air saturations were 95%. Patient feels short of breath. She has been screened for Covid with results pending. Will continue to monitor O2 saturations. If necessary will place patient on O2 support and continue breathing treatments. Acute on chronic kidney disease: Patient's baseline fluctuates between 1.3 and 1.5. Current creatinine level of 1.4. Will continue gentle IV hydration. Will monitor crit levels daily. Nephrology also would like a urine sodium and a random urine potassium. We will also [facility]. Nephrology consulted. Hyperkalemia: Continue IV fluids. Will hold off on any potassium supplement at this time. Monitor potassium levels daily. Chronic congestive heart failure: BNP elevated at 2592 on admission. On discharge on March 29, 2020 her BMP was 2907. Will continue to monitor. Chronic atrial fibrillation: Will resume Eliquis [address] patient on continuous telemetry. History of type 2 diabetes mellitus currently not taking any medication with a reported hemoglobin A1c of 6.3: Patient states that she has not taken insulin and fiber 6 years. States that her PCP monitors her hemoglobin A1c and that her last A1c was 6.3. Patient controls her diabetes with diet and is fairly active. Essential hypertension: Will resume all medications and monitor blood pressure. Discharge Plan: Home Plan to discharge in: 24 Hours - Advance Directives Does patient have a Living Will: No Does patient have a Durable POA for Healthcare: No - Code Status/Comfort Care Code Status Assessed: Yes Time Spent Managing Pts Care (In Minutes): 55
[2020-04-01] MEDS ORDERED: carvediloL 6.25 MG TAB PO SCH (22:06)
[2020-04-01] MEDS: INSULIN -REGULAR HUMAN 50 UNIT/0.5 ML ML SQ SCH (22:06)
[2020-04-01] MEDS ORDERED: NA CHLORIDE 0.9% 1,000 ML IV SCH (22:06)
[2020-04-01] MEDS ORDERED: ACETAMINOPHEN 500 MG TAB PO PRN (22:06)
[2020-04-01] MEDS ORDERED: GLUCAGON 1 MG/VIAL IM PRN (22:06)
[2020-04-01] MEDS ORDERED: D50W 25 GM/50 ML SYRINGE/VIAL IV PRN (22:06)
[2020-04-01 23:25] LABS: BUN Blood Urea Nitrogen 24 mg/dL (7-18); Bicarbonate 26 mmol/L (21-32); CKMB Creatine Kinase MB < 1.0 ng/mL (0.3-3.6); Creatine Phosphokinase 57 U/L (26-192); Glucose Level 149 mg/dL (74-106); Potassium 4.5 mmol/L (3.5-5.1); Sodium Level 124 mmol/L (136-145); Troponin I < 0.02 ng/mL (0.0-0.045)
[2020-04-01] MEDS: TIZANIDINE 4 MG TABLET PO PRN (23:47)
[2020-04-01] MEDS: HYDROCODONE/APAP 10/325 TAB PO PRN (23:47)
[2020-04-01] MEDS: APIXABAN 5 MG TABLET PO SCH (23:48)
[2020-04-01] MEDS: ATORVASTATIN 10 MG TAB PO SCH (23:48)
[2020-04-01 23:57] LABS: Urine Appearance CLEAR; Urine Bilirubin NEGATIVE (NEG); Urine Blood NEGATIVE (NEG); Urine Color YELLOW; Urine Glucose NEGATIVE (NEG); Urine Protein NEGATIVE (NEG); Urine Specific Gravity <=1.005 (1.005-1.030); Urine pH 6.5 (5.0-7.0)
[2020-04-01 23:58] LABS: Urine Microscopic Reflex NO UMIC
--- NOTE | 2020-04-02 00:42 | CON ---
Date of Consultation: 04/01/2020 Chief Complaint: Hyponatremia, hypoosmolar. History Of Present Illness: Patient is a 80-year-old woman with past medical history of atrial fibri llation, diabetes mellitus type 2, essential hypertension. She presented to the emergency room [facility] of shortness of breath and generalized weakness. She developed progressively worse fatigue associ ated with weakness and decreased p.o. intake over last week. Patient was complaining of chest pain, which occurred at home and it was left-sided pressure like, resolved prior to admission to the hospit al. Patient is admitted to the hospital because of congestive heart failure. She developed congesti ve heart failure in late February. She received nebulizer treatment in the emergency room. BNP was elev ated up to 2592. Creatinine was 1.4. Sodium 120, potassium 5.5. Patient takes diuretic treatment d aily for congestive heart failure along with losartan. She takes multiple blood pressure medication including amlodipine, Coreg. She is on Lasix with daily dose of 20 mg a day. On [facility] the [facility], blood work revealed elevated BUN and creatinine ratio and hyponatremia. Sodium was 120. Revie w of previous medical records show sodium level within normal ranges. Back in February, sodium level was ranging 137-139, although on March 21 was 135, which was borderline low. On previous occasion, geovany coleman did not have history of hyperkalemia. During this admission, blood work showed normal bicarbona te level. There is no element of metabolic acidosis, although BUN and creatinine ratio is elevated a nd creatinine is over her baseline. Patient was screened for acute coronary artery syndrome and trop onin level is within normal limits. Chest x-ray was done today. It showed no mass or consolidation. Vascular changes mildly prominent, but less than back in February when she was admitted for acute conge stive heart failure. There is some minimal overload of volume suggestive on this x-ray. Review of Systems: Patient cannot provide review of systems. She appears to be somewhat lethargic, although she is not confused. Past Medical History: Hypertension, atrial fibrillation, congestive heart failure, hypothyroidism, c holecystectomy. Family History: No kidney disease in the family. Father had heart disease. Mother, heart disease. Social History: Denies tobacco, alcohol, or illicit drugs. Physical Examination: General: Patient is awake, alert, follows commands. Eyes: Anicteric sclerae. EOMI. Ears, Nose, Mouth and Throat: Oral mucosa moist. No pallor. Neck: Supple, no bruits. Lungs: Diminished breath sounds at bases. Heart: S1, S2. Abdomen: Soft, benign. Extremities: No edema. No clubbing. No cyanosis. Neurologic: Moving extremities. Cranial nerves intact. Laboratory Data: Uric acid 8.1, PT 26.3, INR 2.26. WBC 6.3, hemoglobin 12.8, platelet count 196,000 . Sodium 120, potassium 5.5, BUN 26, creatinine 1.47. Impression And Plan: 1.Hyponatremia, hypoosmolar secondary to diminished p.o. intake. Patient was started on normal sali ne to treat hyponatremia and prerenal azotemia. Monitor urine output and electrolytes. 2.Shortness of breath. Patient was found to have hypoxemic respiratory failure. Continue O2 suppor t. 3.Acute on chronic kidney injury. Creatinine level is fluctuating. There is prerenal azotemia pres ent. Continue IV hydration with normal saline. 4.Hyperkalemia: Monitor electrolytes. Resume low-potassium diet. Patient was taking potassium sup plementation. Plan is to hold potassium supplements. 5.Chronic and acute congestive heart failure. Currently diuretic on hold due to hyponatremia. Jenifer ent has some cardiorenal syndrome, which may be contributory to hyponatremia, although at this point, diuretic will be on hold and patie nt will have mild hydration. EB/MODL Voice ID: [id number] Report ID: [id number]
[2020-04-02 00:43] LABS: UR MICROALBUMIN 2.4 mg/dL (< 1.9)
[2020-04-02 01:01] LABS: UR CREAT < 13.0 mg/dL (20-320); UR PROTEIN < 5 mg/dL (<11.9); Urine Protein/Creatinine Ratio ND ratio (<0.15)
[2020-04-02 05:08] VITALS: BMI 29.0
[2020-04-02] MEDS: LEVOTHYROXINE SOD 0.125 MG TAB PO SCH (05:24)
[2020-04-02 06:52] LABS: Absolute Lymphocytes (CBC) 1.3 K/uL (0.7-4.9); Basophils % 0.2 % (0-1.3); Hematocrit 35.6 % (36.0-45.0); Lymphocytes % 22.5 % (15.3-44.8); RBC Red Blood Cell Count 3.97 M/uL (3.86-4.86)
[2020-04-02 06:59] LABS: Protime INR 2.27
[2020-04-02 07:22] LABS: CKMB Creatine Kinase MB 1.1 ng/mL (0.3-3.6); Creatine Phosphokinase 45 U/L (26-192); Troponin I < 0.02 ng/mL (0.0-0.045)
[2020-04-02 07:27] LABS: Magnesium 2.1 mg/dL (1.8-2.4); Potassium 4.3 mmol/L (3.5-5.1); Thyroid Stimulating Hormone 0.736 uIU/mL (0.360-3.740)
[2020-04-02] MEDS: INSULIN -REGULAR HUMAN 50 UNIT/0.5 ML ML SQ SCH ×4 (07:30→21:00)
--- NOTE | 2020-04-02 07:31 | RAD REPORT ---
EXAM DESCRIPTION: RAD - Chest Single View - 04/02/2020 6:58 am CLINICAL HISTORY: PUI, cough, fever, possible COVID-19 infection COMPARISON: Portable April 01 TECHNIQUE: AP portable chest image was obtained 04/02/2020 6:58 am . FINDINGS: No new mass or consolidation. Lung markings are not substantially different. No progressiv e process seen. Heart size has decreased slightly in prominence. Vasculature is similar to comparison . No measurable pleural effusion and no pneumothorax. No acute bony abnormality seen. No acute aortic findings suspected. IMPRESSION: No new or progressive cardiopulmonary finding.
[2020-04-02] MEDS: APIXABAN 5 MG TABLET PO SCH ×2 (08:37→21:41)
[2020-04-02] MEDS ORDERED: AMLODIPINE 2.5 MG TAB PO SCH (09:00)
[2020-04-02] MEDS ORDERED: APIXABAN 5 MG TABLET PO SCH (09:00)
[2020-04-02] MEDS ORDERED: carvediloL 6.25 MG TAB PO SCH ×3 (09:00)
[2020-04-02] MEDS ORDERED: carvediloL 3.125 MG TAB PO SCH (09:00)
--- NOTE | 2020-04-02 10:40 | CON ---
Date of Consultation: 04/02/2020 Reason For Consultation: Bradycardia and atrial fibrillation. History Of Present Illness: Ms. Myers is a 80-year-old white woman, she is known to us from previous office visits. She has a history of chronic atrial fibrillation for which she takes Coreg and Eliqu is. She has a history of congestive heart failure with normal ejection fraction, moderate pulmonary hypertension, moderate aortic stenosis by echo last month. She also has a history of hypothyroidism and dyslipidemia. She came in with shortness of breath, was found to have a heart rate of 40 in atri al fibrillation. Her creatinine is 1.33. Her INR was 2.27. She was hyponatremic at 126 sodium with a BNP of 2592. She denied any chest pain, palpitations, or syncope. Denied any fever or chills or cough. She has been gently hydrated. Her Coreg has been held. Her Norvasc has been held. Her Lasi x has been held. Her losartan has been held. She is now only on Eliquis, Lipitor, Synthroid, and ge ntle hydration and she is feeling better. Past Medical History: As stated above. Allergies: INCLUDE SULFA. Review of Systems: Negative. Social History: Negative. Family History: Noncontributory. Medications: At home include Coreg, Eliquis, Norvasc, Lasix, Synthroid, losartan, potassium, and Zoc or. Physical Examination: Vital Signs: Her heart rate now is 60. Her vital signs were stable. She was in atrial fibrillation at a rate of 60. HEENT: Negative. Neck: Supple, no bruit. Chest: Clear. Cardiac: Revealed atrial fibrillation with aortic stenosis murmur. No gallops or rubs. Abdomen: Benign. Extremities: Revealed no clubbing, cyanosis, or edema. Diagnostic Data: As stated above. EKG showed atrial fibrillation. Chest x-ray is normal. Troponin is negative. Impression: 1.Ms. Myers's symptoms of shortness of breath certainly could be secondary to bradycardia. She has chronic atrial fibrillation on Eliquis. I would definitely hold her Coreg and Norvasc for now. 2.Hyponatremia, probably secondary to combination of losartan and Lasix. We need to hold both of th ose and gently hydrate her. 3.Dyslipidemia, on Zocor. 4.Moderate aortic stenosis. 5.Moderate pulmonary hypertension. Plan: Case was discussed with Dr. Currie. For now, I would hold the Coreg, hold the Norvasc, hold t he Lasix, hold the losartan, and actually probably DC it. I would definitely continue the Synthroid, Lipitor, and Eliquis and when she goes home, she should get back on the Norvasc. Continue her Zocor and potassium. There is no need for repeat cardiac workup. I will keep her off beta saul regard ing her atrial fibrillation and see how she does. KENZIE/DASHA Voice ID: [id number] Report ID: [id number]
--- NOTE | 2020-04-02 10:57 | EKG ---
Test Date: 2020-04-01 Test Time: 15:29:27 Communications Program Manager: JONATHAN MEASUREMENT RESULTS: Intervals: Rate: 50 [place]: QRSD: 114 QT: 438 QTc: 399 Justin: P: DC: QRS: 17 T: 97 INTERPRETIVE STATEMENTS: Atrial fibrillation with slow ventricular response Possible Anterior infarct, age undetermined Abnormal ECG Compared to ECG 03/19/2020 05:22:54 Myocardial infarct finding now present ST (T wave) deviation no longer present Electronically Signed On 04-02-20 10:54:06 CDT by Hamlet Esqueda
[2020-04-02] MEDS ORDERED: NA CHLORIDE 0.9% 500 ML IV ONE (11:00)
[2020-04-02] MEDS: DIPHENHYDRAMINE 25 MG TAB/CAP PO PRN (11:15)
--- NOTE | 2020-04-02 12:52 | PN ---
Date of Progress Note: 04/02/2020 Subjective: Patient was admitted with hyponatremia secondary to over diuresis, dehydration. Physical Examination: Vital Signs: When I saw the patient, blood pressure 140/65, pulse of 40, afebrile. Patient had good urine output of 700. Chest: Clear to auscultation. Heart: S1, S2. Systolic murmur. Abdomen: Soft, nontender. Extremities: Trace edema. Neurologic: Alert. No focal. Laboratory Data: WBC 5.8, H and H 12.1/35.6, platelets 175. Sodium 126, potassium 4.3, bicarb 28, B UN 26, creatinine 1.3, calcium 8.3, magnesium 2.1. TSH 0.7. Current Medications: The patient on include Tylenol, hydrocodone, amlodipine 5 mg, insulin, levothyr oxine, Zanaflex. Assessment And Plan: 1.Acute kidney injury secondary to prerenal, over diuresis, trending down close to baseline around 1 .1 with GFR of 44. Currently 1.3, GFR of 38. I am going to go ahead and resume IV fluids gently. 2.Hyponatremia secondary to depletional, secondary to the diuresis supported with elevation in the u cabrera acid and elevation in urine sodium secondary to Lasix. I am going to go ahead and resume normal saline 50 per hour for total of 500 and we will repeat chemistry. 3.Hypertension, controlled optimal. Continue current treatment. 4.Pulmonary hypertension. Patient was started on calcium channel saul. We will hold on the diuresis for the time being. We will follow up with Cardiology. ANDRES Voice ID: [id number] Report ID: [id number]
[2020-04-02] MEDS: ONDANSETRON 4 MG/2 ML VIAL IV PRN (13:17)
[2020-04-02] MEDS: HYDROCODONE/APAP 10/325 TAB PO PRN ×2 (14:59→22:42)
--- NOTE | 2020-04-02 15:33 | P.PN ---
Subjective Date of Service: 04/02/20 Primary Care Provider: Dr. Cruz Chief Complaint: Hyponatremia Subjective: Other (Patient stable this time.) Physical Examination - Vital Signs Temperature: 99.1 F Blood Pressure: 140/65 Pulse: 40 Respirations: 16 Pulse Ox (%): 99 - Physical Exam General: Alert, Cooperative HEENT: Atraumatic Neck: Supple Respiratory: Clear to auscultation bilaterally, Normal air movement Cardiovascular: Irregular heart rate/rhythm (AFib rate controlled) Gastrointestinal: Normal bowel sounds Neurological: Normal speech, Normal strength at 5/5 x4 extr, Normal tone - Studies Laboratory Data (last 24 hrs) 04/01/20 17:24: Uric Acid 8.1 H 04/01/20 15:20: PT 26.3 H, INR 2.26 04/01/20 15:20: WBC 6.3, Hgb 12.8, Hct 38.4, Plt Count 196 04/01/20 15:20: Sodium 120 L, Potassium 5.5 H, BUN 26 H, Creatinine 1.47 H, Glucose 146 H, Magnesium 2.0, Total Bilirubin 1.1 H, AST 22, ALT 12, Alkaline Phosphatase 103 Medications List Reviewed: Yes Assessment & Plan Discharge Plan: Home Physician Review Additional Text: Impression: Hyponatremia currently taking Lasix diuretic: Shortness of breath secondary to acute and chronic diastolic CHF with pulmonary hypertension: Acute on chronic kidney disease stage III: Hyperkalemia: Chronic atrial fibrillation: Bradycardia likely related to medication History of type 2 diabetes mellitus currently not taking any medication with a reported hemoglobin A1c of 6.3; Essential hypertension: Hypothyroidism Hyperlipidemia Plan: Hyponatremia currently taking Lasix diuretic: Spoke with nephrology. Continue with diuresis. Sodium improved. Anticipate improvement over the next 24 hr. L ikely discharge tomorrow. Shortness of breath secondary to acute on chronic diastolic CHF with pulmonary hypertension: Continue with diuresis. Maintain oxygen above 93%. May require oxygen at discharge. Acute on chronic kidney disease stage III: Spoke with nephrology. Nephrology continues to adjust diuretic therapy. Hyperkalemia: Improved. Will continue monitor closely. Bradycardia likely medication related: Spoke with cardiology. Will discontinue carvedilol. Chronic atrial fibrillation: Will resume Eliquis 5 mg b.i.d. History of type 2 diabetes mellitus currently not taking any medication with a reported hemoglobin A1c of 6.3: Continue with Accu-Cheks Essential hypertension: Spoke with nephrology. Will continue with Norvasc. Discontinue carvedilol due to bradycardia. Hyperlipidemia: Continue medication Hypothyroidism: Continue medication Time Spent Managing Pts Care (In Minutes): 55
[2020-04-02 18:11] LABS: Potassium 4.3 mmol/L (3.5-5.1)
[2020-04-02] MEDS: FLUTICASONE 50MCG NASAL SPRAY NAS SCH (21:00)
[2020-04-02] MEDS ORDERED: AMLODIPINE 10 MG TAB PO SCH (21:00)
[2020-04-02] MEDS: TIZANIDINE 4 MG TABLET PO PRN (21:41)
[2020-04-02] MEDS: AMLODIPINE 10 MG TAB PO SCH (21:41)
[2020-04-02] MEDS: ATORVASTATIN 10 MG TAB PO SCH (21:41)
[2020-04-03] MEDS: HYDROCODONE/APAP 10/325 TAB PO PRN ×2 (04:54→11:52)
[2020-04-03] MEDS: LEVOTHYROXINE SOD 0.125 MG TAB PO SCH (04:54)
[2020-04-03 05:31] LABS: Basophils % 0.6 % (0-1.3); Hematocrit 38.3 % (36.0-45.0); Lymphocytes % 28.8 % (15.3-44.8); MPV 8.7 fL (7.6-11.3); RBC Red Blood Cell Count 4.25 M/uL (3.86-4.86)
[2020-04-03 06:01] LABS: Albumin 3.4 g/dL (3.4-5.0); Magnesium 2.3 mg/dL (1.8-2.4); Phosphorus 3.1 mg/dL (2.5-4.9); Potassium 4.3 mmol/L (3.5-5.1)
[2020-04-03] MEDS: INSULIN -REGULAR HUMAN 50 UNIT/0.5 ML ML SQ SCH ×2 (07:30→11:30)
[2020-04-03] MEDS: DIPHENHYDRAMINE 25 MG TAB/CAP PO PRN (08:15)
[2020-04-03] MEDS: APIXABAN 5 MG TABLET PO SCH (08:15)
[2020-04-03] MEDS: FLUTICASONE 50MCG NASAL SPRAY NAS SCH (08:16)
--- NOTE | 2020-04-03 08:29 | PN ---
Patient admitted and has been followed for atrial fibrillation and bradycardia as well as hyponatremi a. She has a history of chronic atrial fibrillation, moderate aortic stenosis, moderate pulmonary hy pertension, normal ejection fraction, diastolic congestive heart failure. She came in with bradycard ia with a rate of 40, sodium of 126. She has had her beta-saul held. She is now on Eliquis, Lipi tor, Synthroid, Lasix, Norvasc. I think she can continue these medication. Her heart rate has impro yuliana and is now in the 50s to 60s. Her sodium has improved to 132. She does not need any further car diac workup. From my standpoint, she can go home today on the above-mentioned medications. No beta blockers. I will see her in the office soon. KENZIE/DASHA Voice ID: [id number] Report ID: [id number]
[2020-04-03 09:21] VITALS: O2SAT 98
[2020-04-03] MEDS: ONDANSETRON 4 MG/2 ML VIAL IV PRN (10:20)
--- NOTE | 2020-04-03 11:23 | P.DS ---
Admission Date: 04/01/20 Discharge Date: 04/03/20 Primary Care Provider: Dr. Cruz Disposition: ROUTINE DISCHARGE Discharge Condition: GOOD Reason for Admission: Hyponatremia Consultations: Nephrology-Dr. Mix Cardiology-Dr. Esqueda Procedures: Medical problem list: Shortness of breath secondary to acute and chronic diastolic CHF with pulmonary hypertension Acute on chronic kidney disease stage III with hyponatremia and hyperkalemia Chronic atrial fibrillation on chronic anti coagulation therapy Bradycardia likely related to medication-Coreg History of type 2 diabetes mellitus currently not taking any medication with a reported hemoglobin A1c of 6.3 Essential hypertension Hypothyroidism Hyperlipidemia Chronic pain Brief History of Present Illness: 80-year-old female with multiple medical problems presented to the ER with shortness of breath. Patient admitted for further evaluation and t reatment. Hospital Course: Patient presented with shortness of breast secondary to acute on chronic diastolic CHF with pulmonary hypertension. The patient was admitted for diuresis. Patient was seen by Cardiology and Nephrology. Patient also had hyponatremia. Patient has significantly improved. Sodium level back to baseline. Renal function also back to baseline. O2 requirements are normal at room air. At discharge she will continue with a 1500 cc per day fluid restriction and low-salt diet. Recommend to monitor her weight daily. If her weight increases by more than 5 lb further adjustment in medication may be required. This can be further addressed by Nephrology or Cardiology. At discharge, nephrology recommends to continue Lasix 20 mg at 1 p.o. every other day. Recommend to recheck lab-BMP in 1 week. Recommend follow up with nephrology in 1 week to monitor her progress. Patient with acute on chronic renal disease stage III. This has remained stable. Patient back to baseline. As recommended above patient will follow up with nephrology in 1 week. Recheck lab-BMP in 1 week as well. Recommend no further use of nonsteroidal anti-inflammatories. Future medications will need to be renally dose. Patient also had bradycardia likely related to carvedilol. Cardiology recommends to discontinue carvedilol at discharge. Patient with chronic atrial fibrillation on chronic anti coagulation therapy. At discharge she will continue with Eliquis 5 mg 1 pill twice daily. Recommend follow up with cardiology in 2-4 weeks. Patient with hypertension. Medications have been adjusted. Patient will no longer take losartan or carvedilol. Blood pressure stable on Norvasc. At discharge she will continue with Norvasc 5 mg daily. If blood pressure remains above 150/90 further adjustment may be required. This can be addressed by her PCP or nephrology/cardiology. Patient with hyperlipidemia. At discharge she will continue with her medication Zocor 20 mg daily. Patient with hypothyroidism. At discharge she will continue with Synthroid 125 mcg daily. Patient with chronic pain. At discharge she may continue with her pain medication and muscle relaxer as needed. Vital Signs/Physical Exam: Temp Pulse Resp BP Pulse Ox 97.5 F 52 16 155/68 H 95 04/03/20 08:00 04/03/20 08:00 04/03/20 08:00 04/03/20 08:00 04/03/20 08:00 General: Alert, In no apparent distress, Oriented x3, Cooperative HEENT: Atraumatic Neck: Supple Respiratory: Clear to auscultation bilaterally, Normal air movement Cardiovascular: Normal pulses, Regular rate/rhythm Gastrointestinal: Normal bowel sounds, No tenderness, No masses, No rebound, No guarding Neurological: Normal speech, Normal strength at 5/5 x4 extr, Normal tone, Normal affect Laboratory Data at Discharge: WBC 6.8 K/uL (4.3-10.9) D 04/03/20 05:07 Hgb 12.9 g/dL (12.0-15.0) 04/03/20 05:07 Hct 38.3 % (36.0-45.0) 04/03/20 05:07 Plt Count 191 K/uL (152-406) 04/03/20 05:07 PT 26.4 SECONDS (9.5-12.5) H 04/02/20 06:39 INR 2.27 04/02/20 06:39 Sodium 132 mmol/L (136-145) L 04/03/20 05:07 Potassium 4.3 mmol/L (3.5-5.1) 04/03/20 05:07 BUN 25 mg/dL (7-18) H 04/03/20 05:07 Creatinine 1.38 mg/dL (0.55-1.3) H 04/03/20 05:07 Glucose 99 mg/dL (74-106) 04/03/20 05:07 Uric Acid 8.1 mg/dL (2.6-6.0) H 04/01/20 17:24 Phosphorus 3.1 mg/dL (2.5-4.9) 04/03/20 05:07 Magnesium 2.3 mg/dL (1.8-2.4) 04/03/20 05:07 Total Bilirubin 1.1 mg/dL (0.2-1.0) H 04/01/20 15:20 AST 22 U/L (15-37) 04/01/20 15:20 ALT 12 U/L (12-78) 04/01/20 15:20 Alkaline Phosphatase 103 U/L (45-117) 04/01/20 15:20 Troponin I < 0.02 ng/mL (0.0-0.045) 04/02/20 06:39 Home Medications: Apixaban [Eliquis] 1 tab PO BID 03/19/20 Hydrocodone 10/APAP 325 [[place] 10/325*] 1 tab PO Q8H PRN 03/19/20 Levothyroxine [Synthroid*] 1 tab PO [id number] 03/19/20 Simvastatin 1 tab PO BEDTIME 03/19/20 Tizanidine HCl 1 tab PO BEDTIME PRN 03/19/20 Amlodipine [Norvasc*] 5 mg PO BEDTIME #30 tab 03/21/20 Furosemide [Lasix*] 1 tab PO SEECOM #30 tab 04/03/20 New Medications: Furosemide [Lasix*] 1 tab PO SEECOM #30 tab Patient Discharge Instructions: 1. Recommend follow up with PCP in 1 week to follow follow up hospitalization. 2. Patient presented with shortness of breast secondary to acute on chronic diastolic CHF with pulmonary hypertension. The patient was admitted for diuresis. Patient was seen by Cardiology and Nephrology. Patient also had hyponatremia. Patient has significantly improved. Sodium level back to baseline. Renal function also back to baseline. O2 requirements are normal at room air. At discharge she will continue with a 1500 cc per day fluid restriction and low-salt diet. Recommend to monitor her weight daily. If her weight increases by more than 5 lb further adjustment in medication may be required. This can be further addressed by Nephrology or Cardiology. At discharge, nephrology recommends to continue Lasix 20 mg at 1 p.o. every other day. Recommend to recheck lab-BMP in 1 week. Recommend follow up with nephrology in 1 week to monitor her progress. 3. Patient with acute on chronic renal disease stage III. This has remained stable. Patient back to baseline. As recommended above patient will follow up with nephrology in 1 week. Recheck lab-BMP in 1 week as well. Recommend no further use of nonsteroidal anti-inflammatories. Future medications will need to be renally dose. 4. Patient also had bradycardia likely related to carvedilol. Cardiology recommends to discontinue carvedilol at discharge. 5. Patient with chronic atrial fibrillation on chronic anti coagulation therapy. At discharge she will continue with Eliquis 5 mg 1 pill twice daily. Recommend follow up with cardiology in 2-4 weeks. 6. Patient with hypertension. Medications have been adjusted. Patient will no longer take losartan or carvedilol. Blood pressure stable on Norvasc. At discharge she will continue with Norvasc 5 mg daily. If blood pressure remains above 150/90 further adjustment may be required. This can be addressed by her PCP or nephrology/cardiology. 7. Patient with hyperlipidemia. At discharge she will continue with her medication Zocor 20 mg daily. 8. Patient with hypothyroidism. At discharge she will continue with Synthroid 125 mcg daily. 9. Patient with chronic pain. At discharge she may continue with her pain medication and muscle relaxer as needed. Diet: AHA Activity: Fall precautions Time spent managing pt's care (in minutes): 55
[2020-04-03] MEDS: AMLODIPINE 10 MG TAB PO SCH (11:52)
[2020-04-03 12:11] VITALS: BP 187/76; TEMP 97.8
--- NOTE | 2020-04-03 17:24 | PN ---
Date of Progress Note: 04/03/2020 Subjective: Patient was admitted with acute kidney injury secondary to prerenal, secondary to over d iuresis. Patient after started on hydration, kidney function has been normalized. Patient had hypon atremia secondary to depletional. After holding the Lasix, sodium trended up nicely. IV fluid has b een discontinued. Physical Examination: Vital Signs: When I saw the patient, blood pressure of 155/68. Chest: Clear to auscultation. Heart: S1, S2. Regular. Abdomen: Soft, nontender. Extremities: Trace edema. Neuro: Alert. No focal. Laboratory Data: Sodium 132, potassium 4.3, bicarb 28, BUN 25, creatinine 1.3, calcium 8.5, phosphor us 3.1, magnesium 2.3. H and H 12.9/38.3. Current Medications: The patient on include tizanidine, amlodipine 5 mg, losartan 100, atorvastatin, levothyroxine. Assessment And Plan: 1.Acute kidney injury secondary to over diuresis, normal size kidney, recover, back close to baselin e. Keep holding diuresis. We will resume Lasix at 20 mg every other day as outpatient. 2.Hypertension, controlled optimal as above. Decrease Lasix. Okay for amlodipine. Continue losart an. 3.Edema secondary to pulmonary hypertension. We will resume Lasix at 20 mg every other day. 4.Hyponatremia secondary to depletional, recover, resolve. Discontinue IV fluid. Patient cleared from the renal standpoint for discharge planning. ANDRES Voice ID: [id number] Report ID: [id number]
[2020-04-04] MEDS ORDERED: LOSARTAN POTASSIUM 50 MG TABLET PO SCH (09:00)
== END 2020-04-03 15:18 | disposition home or self-care (01) | DRG 291 ==
LOC: ER 14:57 → ERHOLD 17:37 → 4TH 21:41 → 2ND 04-02 17:59
PROVIDERS: ADMIT Family Medicine; ATTEND Family Medicine
DX: I13.0 Hypertensive heart and chronic kidney disease with heart failure and stage 1 through stage 4 chronic kidney disease, or unspecified chronic kidney disease (principal); I50.33 Acute on chronic diastolic (congestive) heart failure; E87.1 Hypo-osmolality and hyponatremia; I48.20 Chronic atrial fibrillation, unspecified; N17.9 Acute kidney failure, unspecified; Z88.1 Allergy status to other antibiotic agents; Z79.01 Long term (current) use of anticoagulants; Z79.891 Long term (current) use of opiate analgesic; Z79.890 Hormone replacement therapy; Z79.899 Other long term (current) drug therapy; Z90.49 Acquired absence of other specified parts of digestive tract; T44.7X5A Adverse effect of beta-adrenoreceptor antagonists, initial encounter; Z60.2 Problems related to living alone; E03.9 Hypothyroidism, unspecified; E11.22 Type 2 diabetes mellitus with diabetic chronic kidney disease; E87.5 Hyperkalemia; I27.20 Pulmonary hypertension, unspecified; N18.3 Chronic kidney disease, stage 3 (moderate); R00.1 Bradycardia, unspecified; E78.5 Hyperlipidemia, unspecified; E86.0 Dehydration; I35.0 Nonrheumatic aortic (valve) stenosis; R06.02 Shortness of breath; Z20.828 Contact with and (suspected) exposure to other viral communicable diseases
CPT/HCPCS: 36415; 71045; 80048; 80069; 80076; 81003; 82043; 82533; 82550; 82553; 82570; 82947; 83735; 83880; 83935; 84132; 84156; 84300; 84439; 84443; 84484; 84550; 85025; 85610; 93005; 96374; 96375; 99284; J2405; J7030; J7040; U0002

== ENCOUNTER 2022-05-26 06:30 | Day surgery (SDC) | payer OTHER ==
[2022-05-25 09:59] LABS: Absolute Lymphocytes (CBC) 1.5 K/uL (0.7-4.9); Lymphocytes % 21.6 % (15.3-44.8); MCV 88.4 fL (80-100); MPV 7.9 fL (7.6-11.3); RBC Red Blood Cell Count 4.97 M/uL (3.86-4.86)
[2022-05-25 10:04] LABS: SARS-CoV-2 Antigen Rapid Res Negative (Negative)
[2022-05-25 10:12] LABS: Potassium 3.6 mmol/L (3.5-5.1)
[2022-05-25 10:14] LABS: Protime INR 1.28
[2022-05-26] MEDS ORDERED: HEPA 1000U/500MLS 2,000 UNIT/1,000 ML BAG IV ONE (06:39)
[2022-05-26] MEDS ORDERED: LIDOCAINE 1% MPF 30 ML VIAL ONE (06:39)
[2022-05-26] MEDS ORDERED: MIDAZOLAM HCL 2 MG/2 ML INJ ONE ×2 (06:40→07:36)
[2022-05-26] MEDS ORDERED: FENTANYL CITR 100 MCG/2 ML ONE (06:40)
[2022-05-26] MEDS ORDERED: NA CHLORIDE 0.9% 0 ML IV ONE (06:41)
[2022-05-26] MEDS ORDERED: ATROPINE SULF 1 MG/10 ML SYR IV ONE (06:41)
[2022-05-26] MEDS ORDERED: NA CHLORIDE 0.9% 500 ML ONE (06:54)
[2022-05-26] MEDS ORDERED: FLUMAZENIL 0.1 MG/ML (5 mL VIAL) IV ONE (07:46)
--- NOTE | 2022-05-26 08:16 | EKG ---
Test Date: 2022-05-25 Test Time: 09:34:22 Dance Therapist: AURY MEASUREMENT RESULTS: Intervals: Rate: 57 [place]: QRSD: 96 QT: 450 QTc: 438 [place]: P: [place]: QRS: -16 T: 119 INTERPRETIVE STATEMENTS: Undetermined rhythm Nonspecific ST and T wave abnormality Abnormal ECG Compared to ECG 04/01/2020 15:29:27 ST (T wave) deviation now present Atrial fibrillation no longer present Myocardial infarct finding no longer present Electronically Signed On 05-26-22 08:12:29 CDT by Hamlet Esqueda
--- NOTE | 2022-05-26 08:23 | OP ---
Date of Procedure: 05/26/2022 Surgeon: Hamlet Esqueda MD Loan Interviewer Mortgage: Tiera Dykesnina Henderson. She will be at bedrest for 2 hours and she will go home and I will make further arrangements for her outpatient care. Admitted to my service as an outpatient today, 05/26/2022. The patient underwent left heart catheter ization, selective coronary arteriogram, common femoral artery angiogram. Indication: Unstable angina. Indication: Ms. Myers is 82, has a history of atrial fibrillation, paroxysmal. Has held Eliquis for 2 days. Has a history of hypertension, dyslipidemia, unstable angina, brought to the labor relations worker today as an outpatient, prepped and draped in routine sterile fashion. Given Versed and fentanyl for russ tion. Using the Seldinger technique, 10 cc of Xylocaine were injected in the right common femoral ar piotr area. A 6-Mosotho sheath were introduced successfully. Angiography there was normal. Angio-Sea l was used to close the case. Ute catheter left and right were used to do the coronary anatomy i njection. The left main was normal. She had a 70% proximal ostial long LAD stenosis, 90% mid, and 9 0% distal LAD stenosis with LINDA 2 flow. RCA was normal, was nondominant. The circumflex had a 90% OM stenosis in the ostial and mid of the OM. The circumflex itself was normal, was left dominant. T otal conscious sedation was 30 minutes. There were no complications. Blood Loss: 5 mL. Postoperative Diagnosis: Severe coronary artery disease. Plan: Possible surgery. I will have the film reviewed by Dr. Reyes and Dr. Nye. NB/MODL Voice ID: [id number] Report ID: [id number]
[2022-05-26 10:34] VITALS: BP 166/53; O2SAT 92
== END 2022-05-26 10:20 | disposition home or self-care (01) ==
LOC: CCL 06:30
DX: I25.110 Atherosclerotic heart disease of native coronary artery with unstable angina pectoris (principal); I11.0 Hypertensive heart disease with heart failure; I50.32 Chronic diastolic (congestive) heart failure; I48.0 Paroxysmal atrial fibrillation; E78.5 Hyperlipidemia, unspecified; Z79.01 Long term (current) use of anticoagulants; Z88.3 Allergy status to other anti-infective agents; Z20.822 Contact with and (suspected) exposure to COVID-19
CPT/HCPCS: 36415; 80048; 85025; 85610; 85730; 87811; 93005; 93454; C1760; C1893; G0269; J0583; J1644; J2250; J3010; J7040; Q9966

== ENCOUNTER 2022-11-06 18:04 | Inpatient (IN) | payer OTHER ==
--- OUTSIDE RECORDS SUMMARY | 2022-11-06 18:15 | XMS REPORT | Continuity of Care Document ---
:[address] [facility] t Address [address] [place] [address] [address] [place] [address] Care Team Providers Name Role Phone STEPHEN STOKES Attending Clinician Unavailable Terell Crespo Attending Clinician Unavailable Stephen Stokes MD Attending Clinician [phone] Lucio FLORES, [place] Attending Clinician Unavailable CHARLY ESPINOZA Attending Clinician Unavailable Indira Ornelas MD Attending Clinician Ki Ricci DO Attending Clinician Gaby GREER, Ryan Martinez Attending Clinician Charly Espinoza MD Attending Clinician Fred Perry MD Attending Clinician Nicolasa Kwon MD Attending Clinician Jaylen FLORES, Dee Kyle Attending Clinician Unavailable STEPHEN STOKES Admitting Clinician Unavailable NICOLASA KWON Admitting Clinician Unavailable Payers Payer Name Policy Type Policy Effective Date Expiration Date Sour ce Number MEDICARE A B [id number] 2005 00:00:00 GENERIC MEDICARE [id number] 2021 SUPPLEMENT [id number] 00:00:00 [facility] [id number] 2018 [facility] 00:[facility]:00 - [facility] MEDICARE NOVITAS MB [id number] 2005 [facility] 00:00:00 - [facility] [id number] 2018 [facility] 00:00:00 - [facility] MEDICARE NOVITAS MB [id number] 2005 [facility] 00:00:00 - [facility] MEDICARE NOVITAS MB [id number] 2005 [facility] 00:00:00 - [facility] [id number] 2018 [facility] 00:00:00 - [facility] Problems Condition Condition Condition Status Onset Resolution Last Treating Co mments Source Name Details Category Date Date Treatment Clinician Date Metabolic Metabolic Disease Active 2021-[address] [facility] [address] alkalosis alkalosis 10-05 [facility] with with 00:00: Medical respirator respirator 00 Ce nter y acidosis y acidosis Other Other Disease Active 2021-[address] [facility] hypervolem hypervolem 10-05 Felicia kes ia ia 00:00: Medical 00 [place] Pleural Pleural Disease Active 2021-[address] [facility] effusion effusion 10-05 [facility] 00:[facility]: Medical 00 [place] Bradycardi Bradycardi Disease Active 2021-[address] a a 08 [facility] 00:00: Medical 00 [place] Generalize Generalize Disease Active 2021-[address] d d 08 [facility] abdominal abdominal 00:00: [facility] davie pain pain 00 [place] Hx of CABG Hx of CABG Disease Active 2021-[address] -08 [facility] 00:00: Medical 00 [place] Hypertensi Hypertensi Disease Active 2021-[address] on, on, 08 [facility] unspecifie unspecifie 00:00: Me dical d type d type 00 [place] Other Other Disease Active 2021-[address] [facility] hyperlipid hyperlipid 08 Felicia kes emia emia 00:00: Medical 00 [place] Urinary Urinary Disease Active 2021-[address] retention retention -08 [facility] 00:00: Medical 00 [place] Acute Acute Disease Active 2021-[address] blood loss blood loss 10-03 Felicia kes anemia anemia 00:00: Medical 00 [place] Acute Acute Disease Active 2021-[address] pulmonary pulmonary -07 [facility] insufficie insufficie 00:00: Me dical ncy ncy 00 [place] Coronary Coronary Disease Active 2021-09 [facility] artery artery 1-07 [facility] disease disease 00:00: Medical involving involving 00 [facility] [place] coronary coronary artery of artery of [place] 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 06-10 [facility] mellitus mellitus 00:00: Medica l 00 [place] Chronic Chronic Disease Active [facility] atrial atrial 06-10 [facility] fibrillati fibrillati 00:00: Me diaz on on 00 [place] [id number] HTN Problem Active Common (hypertens Spirit ion), - CHI benign [facility] [id number] Mixed Problem Active Common hyperlipid Spirit emia - CHI [facility] [id number] Atrial Problem Active Common fibrillati Spirit on, - [facility] unspecifie St d [facility] [id number] Hypothyroi Problem Active Com mon dism, Spirit unspecifie - CHI d type [facility] [id number] Stage 3 Problem Active Commo n chronic Spirit kidney - CHI disease [facility] [id number] 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 [facility] [id number] Chronic Problem Active Commo n diastolic Spirit congestive - CHI heart failure [facility] [id number] SMA Problem Active Common stenosis Spirit - CHI [facility] [id number] Acute on Problem Active Comm on chronic Spirit diastolic - CHI congestive heart [facility] [id number] Low back Problem Active Comm on pain, Spirit unspecifie - CHI d back St pain [facility] laterality Medica l , Center unspecifie d chronicity , with sciatica presence unspecifie d [id number] PVD Problem Active Common (periphera Spirit l vascular - CHI disease) [facility] [id number] Opioid Problem Active Common dependence Spirit in - CHI controlled [facility] [id number] Pulmonary Problem Active Comm on HTN Spirit - CHI [facility] [id number] Acute on Problem Active Comm on chronic Spirit systolic - [facility] congestive heart [facility] failure [facility] [id number] GERD Problem Active Common without Spirit esophagiti - CHI s [facility] [id number] Other Problem Active Common chronic Spirit pain - CH[facility] [id number] Peripheral Problem Active Co mmon edema [facility] Sepsis Sepsis Disease Active [facility] without without [facility] acute acute Medical organ organ Center dysfunctio dysfunctio n, due to n, due to unspecifie unspecifie d organism d organism Status Status Disease Active [facility] post post [facility] cardiac cardiac Medical surgery surgery Center Diarrhea, Diarrhea, Disease Active [facility] unspecifie unspecifie Felicia kes d type d type Medical Center ATN (acute ATN (acute Disease Active [facility] tubular tubular [facility] necrosis) necrosis) [facility] CHANDAN (acute CHANDNA (acute Disease Active [facility] kidney kidney [facility] injury) injury) Medical Center Hyponatrem Hyponatrem Disease Active [facility] ia [facility] Allergies, Adverse Reactions, Alerts Allergy Allergy Status Severity Reaction(s) Onset Inactive Treating Comm ents Source Name Type Date Date Clinician SULFAMET Allergy Active High Hives 2016-09 [facility] HOXAZOLE 10-11 00:00: 00 SULFAMET Allergy Active High Rash 2016-09 [facility] HOXAZOLE 15 -TRIMETH 00:00: OPRIM 00 TRIMETHO Allergy Active High Hives 2016-09 [facility] PRIM 10-11 00:00: 00 Sulfamet Drug Active Hives 2016-[address] [facility] hoxazole Allergy 15 [facility] 00:00: Medical 00 Center Sulfamet Drug Active Rash, Hives 2016-[address] hoxazole Allergy 15 [facility] -Trimeth 00:00: Medical oprim 00 Center Trimetho Drug Active Hives 2016-[address] [facility] prim Allergy 15 [facility] 00:00: Medical 00 Center Family History Family Member Diagnosis Comments Start Date Stop Date Source Natural brother Heart disease [facility] Natural father Heart disease [facility] Natural mother Hypertension [facility] Natural son Diabetes [facility] Natural son Stroke [facility] Social History Social Habit Start Date Stop Date Quantity Comments Source History SDOH [facility] Alcohol Std Drinks Medica l Center History SDOH [facility] Alcohol Binge Medical Quinn [facility] History SDOH [facility] Alcohol Comment Medical C enter History of Tobacco [facility] - Use [facility] Alcohol intake 2022-08-19 2022-08-[address] Domingo es 00:00:00 00:00:00 non-drinker Medical Cente r (finding) Tobacco use and 2022-06-09 2022-06-[address] Felicia kes exposure 00:00:00 00:00:00 Medical Center History SDOH 2022-06-09 2022-06-[address] [facility] Alcohol Frequency 00:00:00 00:00:00 Medical Center Sex Assigned At [address] Felicia kes 00:00:00 00:00:00 Medical Center Smoking Status Start Date Stop Date Source Never Smoker [facility] Medications Ordered Filled Start Stop Current Ordering Indication Dosage Frequency Signature Comments Components Source Medication Medication Date Date Medication? Clinician (SIG) Name Name traMADoL 2021-09 Yes 50mg Take [address] (ULTRAM) 50 2-27 by mouth 3 Felicia kes mg tablet 10:23: (three) Medic al 09 times Center daily as needed. hydrALAZINE 2021-09 Yes 25mg Q.[id number] Take [address] (APRESOLINE 2-21 [id number] by mouth 3 [facility] ) 25 MG 00:00: 3D (three) Medical tablet 00 times Center daily. losartan 2021-09 Yes 50mg QD Take [address] (COZAAR) 50 1-18 tablet (50 Felicia kes MG tablet 00:00: mg total) Med ical 00 by mouth Center daily. aspirin 81 2021-09- Yes 81mg QD Take [address] MG chewable 1-17 11-17 tablet (81 L ukes tablet 00:00: 23:59 mg total) Medic al 00 :00 by mouth Center daily. cyanocobala 2021-09- Yes 100ug QD Take [address] min 10-13 tablet [facility] (VITAMIN 00:00: 23:59 (100 mcg Medi davie B-12) 100 00 :00 total) by Cente r MCG tablet mouth daily. folic acid 2021-09- Yes 1mg QD Take [address] (FOLVITE) 1 10-13 tablet (1 Felicia kes MG tablet 00:00: 23:59 mg total) Me dical 00 :00 by mouth Center daily. thiamine 2021-09- Yes 100mg QD Take 1 [facility] t 100 MG 10-13 tablet [facility] tablet 00:00: 23:59 (100 mg Medical 00 :00 total) by Center mouth daily. tamsulosin 2021-09- No .4mg QD Take [address] (FLOMAX) 10-13 capsule [facility] 0.4 mg Cap 00:00: 00:00 (0.4 mg Med ical 24 hr 00 :00 total) by Center capsule mouth daily. lidocaine 2021-09- No 2{patch Q24H Place [address] (LIDODERM) 10-13 } patches [facility] 5 % patch 00:00: 23:59 onto the Med ical 00 :00 skin daily Center for 30 days Remove & Discard patch within 12 hours or as directed by . polyethylen 2021-09- No 17g QD Take [address] e glycol 10-1320 by mouth [facility] (GLYCOLAX) 00:00: 23:59 daily for M edical 17 gram 00 :00 3 days. Center packet furosemide 2021-09- No 1{tbl} Take [address] (LASIX) 20 -12 08-16 tablet by Domingo es MG tablet 17:12: 00:00 mouth Medica l 40 :00 daily as Center needed for Other For awelling. diphenhydra 2021-09- No Take by [facility] mine HCl -16 11-16 mouth as [facility] (BENADRYL 17:12: 00:00 needed. Medi davie ORAL) 40 :00 Center apixaban 2021-09 Yes 2.5mg Q.5D Take [address] (ELIQUIS) -16 tablet [facility] 2.5 mg Tab 00:00: (2.5 mg Medi davie tablet 00 total) by Center mouth 2 (two) times daily. melatonin 5 2021-09 Yes 5mg Take [address] [facility] mg tablet -16 tablet (5 [facility] 00:00: mg total) Medical 00 by mouth Center every night as needed for Sleep. atorvastati 2021-09- Yes 80mg QD Take [address] n (LIPITOR) 10-1216 tablet (80 L ukes 80 MG 00:00: 23:59 mg total) Medica l tablet 00 :00 by mouth Center nightly. dicyclomine 2021-09- Yes 10mg Q.25D Take [address] (BENTYL) 10 10-1216 capsule Luke s MG capsule 00:00: 23:59 (10 mg Medi davie 00 :00 total) by Center mouth 4 (four) times daily. acetaminoph 2021-09- Yes 650mg Take [address] en 10-12 11-11 tablets [facility] (TYLENOL) 00:00: 23:59 (650 mg Medi davie 325 MG 00 :00 total) by Center tablet mouth every 6 (six) hours as needed for up to 360 days. fluticasone 2021-09- No 2{spray Q.5D [address] propionate 10-12 } by Nasal Luke s (FLONASE) 00:00: 00:00 route 2 Medi davie 50 00 :00 (two) Center mcg/actuati times on nasal daily. spray insulin 2021-09- No 0U Inject [facility] lispro 10-12 0-12 Units [facility] (HumaLOG) 00:00: 00:00 subcutaneo M edical 100 unit/mL 00 :00 usly 3 Center injection (three) times daily before meals. bisacodyL 2021-09- No 5mg Take 1 [facility] t (DULCOLAX) 10-12 tablet (5 Domingo es 5 mg EC 00:00: 23:59 mg total) Medi davie tablet 00 :00 by mouth Center daily as needed for Constipati on for up to 30 days. bisacodyL 2021-09- No 10mg Place [address] [facility] (DULCOLAX) 10-12 suppositor Felicia kes 10 mg 00:00: 23:59 y (10 mg Medical suppository 00 :00 total) Center rectally daily as needed for up to 10 days. nystatin 2021-09- No [id number] Q.25D Take [address] (MYCOSTATIN 10-12 (500,000 Domingo es ) 100,000 00:00: 23:59 Units Medica l unit/mL 00 :00 total) by Center suspension mouth 4 (four) times daily for 10 days. simethicone 2021-09 No 160mg Q.25D Take [address] (MYLICON) 10-12 tablets [facility] 80 MG 00:00: 23:59 (160 mg Medical chewable 00 :00 total) by Center tablet mouth 4 (four) times daily for 10 days. HYDROcodone 2021- No 1{tbl} Take [address] -acetaminop 06-03 tablet by Felicia melara hen ([place]) 00:00: 00:00 mouth 3 Me dical 10-325 mg 00 :00 (three) Center per tablet times daily as needed for Pain. simvastatin 2021- No 1{tbl} QD Take [address] (ZOCOR) 20 06-03 tablet by Domingo es MG tablet 00:00: 00:00 mouth Medica l 00 :00 nightly. Center gabapentin 2021- No 300mg Q.[id number] Take [address] (NEURONTIN) 05-06 [id number] mg by [facility]ukes 300 MG 00:00: 00:00 3D mouth 3 Medical capsule 00 :00 (three) Center times daily. amLODIPine 2021- No 10mg QD Take [address] (NORVASC) 308-12 by mouth [facility]ukes 10 MG 00:00: 00:00 daily. Medical tablet 00 :00 Center levothyroxi Yes 125ug QD Take [address] ne 3-03 mcg by [facility]ukes (SYNTHROID, 00:00: mouth Medic al LEVOTHROID) 00 daily. Center 125 MCG tablet apixaban 2021- No 5mg Q.5D Take [address] (Eliquis) 5 2-11 11-16 by mouth 2 L ukes mg Tab 00:00: 00:00 (two) Medical tablet 00 :00 times Center daily. losartan 2020-09- No 1{tbl} QD Take [address] (COZAAR) 10-18-18 tablet by [facility] 100 MG 00:00: 00:00 mouth Medical tablet 00 :00 daily. Center Losartan Losartan Yes Terell 1 tablet C ommon Potassium Potassium Crespo Spir it [facility] Simvastatin Simvastatin Yes Terell 1 tablet Common Crespo in the [facility] [place] Yes Terell 1 tablet Common Crespo as needed [facility] Acyclovir Acyclovir Yes Terell 1 tablet Common Crespo [facility] Furosemide Furosemide Yes Terell 1 tablet Common Crespo [facility] Eliquis 5 Eliquis 5 Yes Terell one tablet Common mg mg Crespo [facility] Tizanidine Tizanidine Yes Terell 1 tablet Common HCl HCl Crespo as needed [facility] Gabapentin Gabapentin Yes Terell 1 capsule Common Crespo [facility] Ranitidine Ranitidine Yes Terell 1 capsule Common HCl HCl Crespo at bedtime [facility] Carvedilol Carvedilol Yes Terell 1 tab Common Crespo [facility] Levothyroxi Levothyroxi Yes Terell 1 tablet Common ne Sodium ne Sodium Crespo on an Spi rit empty - [facility]I stomach in [facility] Amlodipine Amlodipine Yes Terell 1 tablet Common Besylate Besylate Crespo [facility] Indomethaci Indomethaci Yes Terell 1 capsule Common n ER n ER Crespo with food [facility] or milk [facility] Potassium Potassium Yes Terell TAKE 1 C ommon Chloride ER Chloride ER Crespo TABLET BY Spirit MOUTH ONCE - CHI DAILY [facility] Losartan Losartan No 1{table QD Losartan Potassium Potassium t} Potassium 100 MG 100 MG 100 MG [place] No 1{table QID [place] 10-325 MG 10-325 MG t_as_ne 10-325 MG eded} Potassium Potassium No Potassium Chloride ER Chloride ER Chloride 10 MEQ 10 MEQ ER 10 MEQ Gabapentin Gabapentin No 1{capsu TID Gabapentin 300 MG 300 MG le} 300 MG Simvastatin Simvastatin No 1{table QD Simvastati 20 MG 20 MG t_in_th n 20 MG e_eveni ng} Eliquis 5 Eliquis 5 No Eliquis 5 mg 5 mg mg 5 mg mg 5 mg Tizanidine Tizanidine No 1{table TID Tizanidine HCl 4 MG HCl 4 MG t_as_ne HCl 4 MG eded} Furosemide Furosemide No 1{table QD Furosemide 20 MG 20 MG t} 20 MG Levothyroxi Levothyroxi No QD Levothyrox ne Sodium ne Sodium ine Sodium 125 MCG 125 MCG 125 MCG Amlodipine Amlodipine No 1{table QD Amlodipine Besylate 5 Besylate 5 t} Besylate 5 MG MG MG Indomethaci Indomethaci No 1{capsu Indomethac n ER 75 MG n ER 75 MG le_with in ER 75 _food_o MG r_milk} Acyclovir Acyclovir No 1{table QD Acyclovir 800 MG 800 MG t} 800 MG Indomethaci Indomethaci No 1{capsu Indomethac n ER 75 MG n ER 75 MG le_with in ER 75 _food_o MG r_milk} Eliquis 5 Eliquis 5 No Eliquis 5 mg 5 mg mg 5 mg mg 5 mg Levothyroxi Levothyroxi No QD Levothyrox ne Sodium ne Sodium ine Sodium 125 MCG 125 MCG 125 MCG Potassium Potassium No Potassium Chloride ER Chloride ER Chloride 10 MEQ 10 MEQ ER 10 MEQ Tizanidine Tizanidine No 1{table TID Tizanidine HCl 4 MG HCl 4 MG t_as_ne HCl 4 MG eded} Amlodipine Amlodipine No 1{table QD Amlodipine Besylate 5 Besylate 5 t} Besylate 5 MG MG MG [place] No 1{table QID [place] 10-325 MG 10-325 MG t_as_ne 10-325 MG eded} Furosemide Furosemide No 1{table QD Furosemide 20 MG 20 MG t} 20 MG Acyclovir Acyclovir No 1{table QD Acyclovir 800 MG 800 MG t} 800 MG Gabapentin Gabapentin No 1{capsu TID Gabapentin 300 MG 300 MG le} 300 MG Losartan Losartan No 1{table QD Losartan Potassium Potassium t} Potassium 100 MG 100 MG 100 MG Simvastatin Simvastatin No 1{table QD Simvastati 20 MG 20 MG t_in_th n 20 MG e_eveni ng} Indomethaci Indomethaci No 1{capsu Indomethac n ER 75 MG n ER 75 MG le_with in ER 75 _food_o MG r_milk} Eliquis 5 Eliquis 5 No Eliquis 5 mg 5 mg mg 5 mg mg 5 mg Levothyroxi Levothyroxi No QD Levothyrox ne Sodium ne Sodium ine Sodium 125 MCG 125 MCG 125 MCG Potassium Potassium No Potassium Chloride ER Chloride ER Chloride 10 MEQ 10 MEQ ER 10 MEQ Tizanidine Tizanidine No 1{table TID Tizanidine HCl 4 MG HCl 4 MG t_as_ne HCl 4 MG eded} Amlodipine Amlodipine No 1{table QD Amlodipine Besylate 5 Besylate 5 t} Besylate 5 MG MG MG [place] No 1{table QID [place] 10-325 MG 10-325 MG t_as_ne 10-325 MG eded} Furosemide Furosemide No 1{table QD Furosemide 20 MG 20 MG t} 20 MG Acyclovir Acyclovir No 1{table QD Acyclovir 800 MG 800 MG t} 800 MG Gabapentin Gabapentin No 1{capsu TID Gabapentin 300 MG 300 MG le} 300 MG Losartan Losartan No 1{table QD Losartan Potassium Potassium t} Potassium 100 MG 100 MG 100 MG Simvastatin Simvastatin No 1{table QD Simvastati 20 MG 20 MG t_in_th n 20 MG e_eveni ng} Immunizations Ordered Immunization Filled Immunization Date Status Commen ts Source Name Name [employer] Flu115 network disks 2019-06-15 Completed [facility] 15:06:00 - [facility] FluAD FluAD 2019-06-15 Completed [facility] 15:06:00 - [facility] FluAD FluAD 2019-06-15 Completed [facility] 15:06:00 - [facility] FluAD FluAD 2019-06-15 Completed [facility] 00:00:00 [facility] Vital Signs Vital Name Observation Time Observation Value Comments Source HEIGHT 2022-06-24 10:00:00 166.4 cm WEIGHT 2022-06-24 10:00:00 83.915 kg WEIGHT 2022-09-22 10:15:00 81.375 kg WEIGHT 2022-09-22 10:15:00 81.375 kg WEIGHT 2022-08-14 06:08:00 84.151 kg WEIGHT 2022-08-13 05:34:00 83.779 kg WEIGHT 2022-08-09 04:08:00 86.183 kg WEIGHT 2022-08-08 01:46:00 90.629 kg WEIGHT 2022-08-06 05:26:00 83.825 kg WEIGHT 2022-08-05 03:33:00 88.633 kg WEIGHT 2022-08-03 04:07:00 96.616 kg WEIGHT 2022-08-01 06:00:00 98.1 kg WEIGHT 2022-07-31 06:00:00 98.9 kg WEIGHT 2022-07-30 06:00:00 101.5 kg WEIGHT 2022-07-29 05:40:00 103 kg WEIGHT 2022-07-28 00:00:00 100.2 kg WEIGHT 2022-07-27 05:10:00 99.565 kg WEIGHT 2022-07-23 08:22:00 96.072 kg WEIGHT 2022-07-22 08:58:00 95.3 kg WEIGHT 2022-07-21 11:53:00 94.802 kg HEIGHT 2022-06-24 10:00:00 166.4 cm WEIGHT 2022-06-24 10:00:00 83.915 kg WEIGHT 2022-08-14 06:08:00 84.151 kg WEIGHT 2022-08-13 05:34:00 83.779 kg WEIGHT 2022-08-09 04:08:00 86.183 kg WEIGHT 2022-08-08 01:46:00 90.629 kg WEIGHT 2022-08-06 05:26:00 83.825 kg WEIGHT 2022-08-05 03:33:00 88.633 kg WEIGHT 2022-08-03 04:07:00 96.616 kg WEIGHT 2022-08-01 06:00:00 98.1 kg WEIGHT 2022-07-31 06:00:00 98.9 kg WEIGHT 2022-07-30 06:00:00 101.5 kg WEIGHT 2022-07-29 05:40:00 103 kg WEIGHT 2022-07-28 00:00:00 100.2 kg WEIGHT 2022-07-27 05:10:00 99.565 kg WEIGHT 2022-07-23 08:22:00 96.072 kg WEIGHT 2022-07-22 08:58:00 95.3 kg WEIGHT 2022-07-21 11:53:00 94.802 kg HEIGHT 2022-06-24 10:00:00 166.4 cm WEIGHT 2022-06-24 10:00:00 83.915 kg WEIGHT 2022-08-14 06:08:00 84.151 kg WEIGHT 2022-08-13 05:34:00 83.779 kg WEIGHT 2022-08-09 04:08:00 86.183 kg WEIGHT 2022-08-08 01:46:00 90.629 kg WEIGHT 2022-08-06 05:26:00 83.825 kg WEIGHT 2022-08-05 03:33:00 88.633 kg WEIGHT 2022-08-03 04:07:00 96.616 kg WEIGHT 2022-08-01 06:00:00 98.1 kg WEIGHT 2022-07-31 06:00:00 98.9 kg WEIGHT 2022-07-30 06:00:00 101.5 kg WEIGHT 2022-07-29 05:40:00 103 kg WEIGHT 2022-07-28 00:00:00 100.2 kg WEIGHT 2022-07-27 05:10:00 99.565 kg WEIGHT 2022-07-23 08:22:00 96.072 kg WEIGHT 2022-07-22 08:58:00 95.3 kg WEIGHT 2022-07-21 11:53:00 94.802 kg HEIGHT 2022-06-24 10:00:00 166.4 cm WEIGHT 2022-06-24 10:00:00 83.915 kg HEIGHT 2022-06-25 09:28:00 165.1 cm HEIGHT 2022-06-25 09:28:00 165.1 cm HEIGHT 2022-06-25 09:28:00 165.1 cm HEIGHT 2022-06-09 09:53:00 175.3 cm WEIGHT 2022-06-09 09:53:00 85.276 kg HEIGHT 2022-06-09 09:53:00 175.3 cm WEIGHT 2022-06-09 09:53:00 85.276 kg height 2020-09-11 14:10:00 65.5 [in_i] [facility] weight 2020-09-11 14:10:00 176.0 [lb_av] [facility] bmi 2020-09-11 14:10:00 28.84 kg/m2 [facility] blood pressure 2020-09-11 14:10:00 135 mm[Hg] [facility] - systolic [facility] blood pressure 2020-09-11 14:10:00 70 mm[Hg] [facility] - diastolic [facility] Systolic blood 2022-09-22 10:15:00 188 mm[Hg] [facility] Diastolic blood 2022-09-22 10:15:00 118 mm[Hg] [facility] Heart rate 2022-09-22 10:15:00 101 /min [facility] Body temperature 2022-09-22 10:15:00 36.17 Yarely [facility] Respiratory rate 2022-09-22 10:15:00 20 /min [facility] Body weight 2022-09-22 10:15:00 81.375 kg [facility] BMI 2022-09-22 10:15:00 29.85 kg/m2 [facility] Oxygen saturation in 2022-09-22 10:15:00 97 /min [facility] Arterial blood by Medical Ce nter Pulse oximetry Body height 2022-06-25 09:28:00 165.1 cm [facility] Procedures Procedure Date / Time Performing Clinician Source Performed POCT-GLUCOSE METER 2022-08-14 12:23:00 Fred Perry [facility] POCT-GLUCOSE METER 2022-08-14 08:10:[address] [facility] 2022-08-14 03:45:00 Sotero Mora [facility] PHOSPHORUS 2022-08-14 03:45:00 Sotero Mora [facility] CBC W/PLT COUNT & AUTO 2022-08-14 03:45:[address] [facility] BASIC METABOLIC PANEL 2022-08-14 03:45:[address] [facility] CBC W/PLT COUNT & AUTO 2022-08-14 03:45:[address] [facility] POCT-GLUCOSE METER 2022-08-13 21:45:00 Fred Perry [facility] POCT-GLUCOSE METER 2022-08-13 16:58:00 Fred Perry [place] [facility] XR CHEST 1 VIEW PORTABLE 2022-08-13 15:02:00 Leila Costello [facility] / BEDSIDE [facility] SARS-COV2/RT-PCR ([facility] & 2022-08-13 13:04:00 Fred Perry [facility] REF LABS) [facility] POCT-GLUCOSE METER 2022-08-13 12:35:00 Fred Perry [facility] POCT-GLUCOSE METER 2022-08-13 08:16:00 Robby [facility] MAGNESIUM 2022-08-13 04:42:00 Sotero Mora [facility] PHOSPHORUS 2022-08-13 04:42:00 Sotero Mora [facility] CBC W/PLT COUNT & AUTO 2022-08-13 04:42:[address] [facility] BASIC METABOLIC PANEL 2022-08-13 04:42:[address] [facility] CBC W/PLT COUNT & AUTO 2022-08-13 04:42:[address] [facility] POCT-GLUCOSE METER 2022-08-12 21:07:00 [facility] 2022-08-12 17:37[facility]00 [facility] 2022-08-12 12:30:00 [facility] POCT-GLUCOSE METER 2022-08-12 08:12:00 [facility] 1 VIEW PORTABLE 2022-08-12 05:45:00 Bradley Keita [facility] MAGNESIUM 2022-08-12 04:24:00 Sotero Mora [facility] PHOSPHORUS 2022-08-12 04:24:00 Sotero Mora [facility] CBC W/PLT COUNT & AUTO 2022-08-12 04:24:[address] [facility] BASIC METABOLIC PANEL 2022-08-12 04:24:[address] [facility] CBC W/PLT COUNT & AUTO 2022-08-12 04:24:[address] [facility] POCT-GLUCOSE METER 2022-08-11 20:37:00 Robby [facility] POCT-GLUCOSE METER 2022-08-11 17:13:00 Robby [facility] POCT-GLUCOSE METER 2022-08-11 12:31:00 Robby [facility] POCT-GLUCOSE METER 2022-08-11 08:25:00 Robby [facility] MAGNESIUM 2022-08-11 04:16:00 Sotero Mora [facility] PHOSPHORUS 2022-08-11 04:16:00 Sotero Mora [facility] CBC W/PLT COUNT & AUTO 2022-08-11 04:16:[address] [facility] BASIC METABOLIC PANEL 2022-08-11 04:16:[address] [facility] CBC W/PLT COUNT & AUTO 2022-08-11 04:16:[address] [facility] POCT-GLUCOSE METER 2022-08-10 20:31:00 Robby [facility] POCT-GLUCOSE METER 2022-08-10 17:09:00 Robby [facility] SARS-COV2/RT-PCR ([facility] & 2022-08-10 14:00:[address] Ab[address] [facility] REF LABS) [facility] BLOOD GAS, VENOUS 2022-08-10 14:00:00 Leila Costello [facility] POCT-GLUCOSE METER 2022-08-10 12:10:00 Robby [facility] POCT-GLUCOSE METER 2022-08-10 08:29:00 Robby [facility] BASIC METABOLIC PANEL 2022-08-10 04:57:00 Sotero Mora [facility] MAGNESIUM 2022-08-10 04:57:00 Sotero Mora [facility] PHOSPHORUS 2022-08-10 04:57:00 Abby Sotero [facility] CBC W/PLT COUNT & AUTO 2022-08-10 04:57:[address] [facility] CBC W/PLT COUNT & AUTO 2022-08-10 04:57:[address] [facility] POCT-GLUCOSE METER 2022-08-09 21:15:00 [facility] 2022-08-09 16:45:00 [facility] 2022-08-09 11:44:00 [facility]SE METER 2022-08-09 07:57:00 Robby [facility] BASIC METABOLIC PANEL 2022-08-09 04:21:00 Sotero Mora [facility] MAGNESIUM 2022-08-09 04:21:00 Sotero Mora [facility] PHOSPHORUS 2022-08-09 04:21:00 Sotero Mora [facility] CBC W/PLT COUNT & AUTO 2022-08-09 04:21:00 Sotero Mora [facility] CBC W/PLT COUNT & AUTO 2022-08-09 04:21:00 Sotero Mora I [facility] POCT-GLUCOSE METER 2022-08-08 20:46:00 Robby [facility] POCT-GLUCOSE METER 2022-08-08 17:20:00 Robby [facility] POCT-GLUCOSE METER 2022-08-08 13:19:00 Robby [facility] POCT-GLUCOSE METER 2022-08-08 08:42:00 Robby [facility] BASIC METABOLIC PANEL 2022-08-08 04:52:00 AbbySotero [facility] MAGNESIUM 2022-08-08 04:52:00 AbbyKeronn [facility] PHOSPHORUS 2022-08-08 04:52:00 Abby [facility] CBC W/PLT COUNT & AUTO 2022-08-08 04:52:[address] [facility] CBC W/PLT COUNT & AUTO 2022-08-08 04:52:[address] [facility] POCT-GLUCOSE METER 2022-08-07 17:24:00 Robby [facility] POCT-GLUCOSE METER 2022-08-07 12:52:00 Robby [facility] POCT-GLUCOSE METER 2022-08-07 08:40:00 Robby, [facility] BASIC METABOLIC PANEL 2022-08-07 04:04:00 Abby Sotero [facility] MAGNESIUM 2022-08-07 04:04:00 Abby Sotero Cooper [facility] PHOSPHORUS 2022-08-07 04:04:00 Abby Sotero [facility] CBC W/PLT COUNT & AUTO 2022-08-07 04:04:[address] [facility] CBC W/PLT COUNT & AUTO 2022-08-07 04:04:[address] [facility] POCT-GLUCOSE METER 2022-08-06 21:04:00 Robby, [facility] POCT-GLUCOSE METER 2022-08-06 17:03:00 Robby [facility] XR CHEST 1 VIEW PORTABLE 2022-08-06 16:05:00 Easton Ch Miryam [facility] 2D ECHO W/ DOPPLER 2022-08-06 11:46:30 Uziel Martinez [facility] (CW/PW/COLOR) [facility] POCT-GLUCOSE METER 2022-08-06 08:43:00 Robby [facility] BASIC METABOLIC PANEL 2022-08-06 04:02:00 Abby [facility] MAGNESIUM 2022-08-06 04:02:00 Abby [facility] PHOSPHORUS 2022-08-06 04:02:00 Abby [facility] CBC W/PLT COUNT & AUTO 2022-08-06 04:01:00 Abby Soterokyle Gamboa [facility] DIFFERENTIAL [facility] CBC W/PLT COUNT & AUTO 2022-08-06 04:01:00 Sotero Mora [facility] URINALYSIS W/ REFLEX 2022-08-05 23:31:00 Malcolm Hewitt [facility] URINE CULTURE [facility] POCT-GLUCOSE METER 2022-08-05 22:32:00 Robby [facility] POCT-GLUCOSE METER 2022-08-05 17:14:00 Robby [facility] BASIC METABOLIC PANEL 2022-08-05 17:03:00 Uziel Martinez [facility] MAGNESIUM 2022-08-05 17:03:00 Uziel Martinez [facility] POCT-GLUCOSE METER 2022-08-05 12:14:00 [facility] POCT-GLUCOSE METER 2022-08-05 08:04:00 [facility] BASIC METABOLIC PANEL 2022-08-05 03:26:00 Sotero Mora [facility] MAGNESIUM 2022-08-05 03:26:00 Sotero Mora Cooper [facility] PHOSPHORUS 2022-08-05 03:26:00 Abby Sotero [facility] CBC W/PLT COUNT & AUTO 2022-08-05 03:26:[address] [facility] B-TYPE NATRIURETIC FACTOR 2022-08-05 03:26:00 Easton Ch [facility] (BNP) [facility] CBC W/PLT COUNT & AUTO 2022-08-05 03:26:[address] [facility] POCT-GLUCOSE METER 2022-08-04 20:45:00 Robby [facility] POCT-GLUCOSE METER 2022-08-04 17:09:00 Robby [facility] POCT-GLUCOSE METER 2022-08-04 12:14:00 Robby [facility] BASIC METABOLIC PANEL 2022-08-04 11:39:00 Sotero Mora [facility] CT CHEST WITHOUT IV 2022-08-04 08:22:00 Easton Ch [facility] CONTRAST [facility] POCT-GLUCOSE METER 2022-08-04 07:20:00 Robby [facility] BASIC METABOLIC PANEL 2022-08-04 04:07:00 Sotero Mora [facility] MAGNESIUM 2022-08-04 04:07:00 Sotero Mora [facility] PHOSPHORUS 2022-08-04 04:07:00 Abby Sotero [facility] CBC W/PLT COUNT & AUTO 2022-08-04 04:07:[address] [facility] CBC W/PLT COUNT & AUTO 2022-08-04 04:07:00 Sotero Mor[facility] POCT-GLUCOSE METER 2022-08-03 21:28:00 Robby [facility] POCT-GLUCOSE METER 2022-08-03 17:19:00 Robby [facility] SARS-COV2/RT-PCR ([facility] & 2022-08-03 14:58:00 Sotero Mora [facility] REF LABS) [facility] BASIC METABOLIC PANEL 2022-08-03 14:57:00 Sotero Mora [facility] POCT-GLUCOSE METER 2022-08-03 07:49:00 Charly Espinoza [facility] BASIC METABOLIC PANEL 2022-08-03 05:09:00 Sotero Mora [facility] MAGNESIUM 2022-08-03 05:09:00 Sotero Mora [facility] PHOSPHORUS 2022-08-03 05:09:00 Abby Sotero [facility] CBC W/PLT COUNT & AUTO 2022-08-03 05:09:[address] [facility] BLOOD GAS, VENOUS 2022-08-03 05:09:00 Leila Costello [facility] CBC W/PLT COUNT & AUTO 2022-08-03 05:09:[address] [facility] POCT-GLUCOSE METER 2022-08-02 20:36:00 Ryan Griffin [facility] POCT-GLUCOSE METER 2022-08-02 17:14:00 Ryan Griffin [facility] US THORACENTESIS 2022-08-02 13:56:00 Sotero Mora [facility] XR CHEST PA OR AP 1 VIEW 2022-08-02 13:50:00 Cherri Joyce [facility] POCT-GLUCOSE METER 2022-08-02 12:29:00 Ryan Griffin [facility] BASIC METABOLIC PANEL 2022-08-02 10:56:00 Sotero Mora [facility] PT/APTT 2022-08-02 10:56:00 Cherri Joyce [facility] POCT-GLUCOSE METER 2022-08-02 08:04:00 Ryan Griffin [facility] MAGNESIUM 2022-08-02 04:05:00 Sotero Mora [facility] PHOSPHORUS 2022-08-02 04:05:00 Sotero Mora [facility] CBC W/PLT COUNT & AUTO 2022-08-02 04:05:[address] [facility] BASIC METABOLIC PANEL 2022-08-02 04:05:00 Sotero Mora [facility] CBC W/PLT COUNT & AUTO 2022-08-02 04:05:[address] [facility] POCT-GLUCOSE METER 2022-08-01 21:31:00 Gaby Ryan [facility] BASIC METABOLIC PANEL 2022-08-01 20:40:00 Abby Sotero [facility] POCT-GLUCOSE METER 2022-08-01 17:26:00 Gaby Ryan [facility] BASIC METABOLIC PANEL 2022-08-01 11:55:00 Abby Sotero [facility] POCT-GLUCOSE METER 2022-08-01 07:37:00 Ki Ricci [facility] MAGNESIUM 2022-08-01 04:22:00 Sotero Mora [facility] PHOSPHORUS 2022-08-01 04:22:00 Sotero Mora [facility] CBC W/PLT COUNT & AUTO 2022-08-01 04:22:[address] [facility] CALCIUM, IONIZED 2022-08-01 04:22:00 Junito [facility] COMPREHENSIVE METABOLIC 2022-08-01 04:22:00 Junito [facility] CBC W/PLT COUNT & AUTO 2022-08-01 04:22:[address] [facility] XR CHEST 1 VIEW PORTABLE 2022-08-01 01:29:00 Suresh Armstrong [facility] POCT-GLUCOSE METER 2022-07-31 21:36:00 Ki Ricci [facility] BASIC METABOLIC PANEL 2022-07-31 20:00:00 Sotero Mora [facility] POCT-GLUCOSE METER 2022-07-31 16:31:00 Radhames [facility] BASIC METABOLIC PANEL 2022-07-31 11:48:00 Sotero Mora [facility] POCT-GLUCOSE METER 2022-07-31 11:45:00 Radhames [facility] POCT-GLUCOSE METER 2022-07-31 06:13:00 Radhames [facility] MAGNESIUM 2022-07-31 01:51:00 Sotero Mora [facility] PHOSPHORUS 2022-07-31 01:51:00 Abby Sotero [facility] CBC W/PLT COUNT & AUTO 2022-07-31 01:51:[address] [facility] BLOOD GAS, ARTERIAL 2022-07-31 01:51:00 Juana Jalloh [facility] CALCIUM, IONIZED 2022-07-31 01:51:00 Junito [facility] COMPREHENSIVE METABOLIC 2022-07-31 01:51:00 Junito [facility] CBC W/PLT COUNT & AUTO 2022-07-31 01:51:[address] [facility] (CELLAVISION MANUAL DIFF) 2022-07-31 01:51:00 Jayashree Bob [facility] XR CHEST 1 VIEW PORTABLE 2022-07-31 01:16:00 Suresh Armstrong [facility] POCT-GLUCOSE METER 2022-07-30 23:16:00 Ki Ricci [facility] POCT-GLUCOSE METER 2022-07-30 17:55:00 Radhames [facility] BASIC METABOLIC PANEL 2022-07-30 16:27:00 Leila Costello [facility] SODIUM, RANDOM URINE 2022-07-30 15:52:00 Leila Costello [facility], I [facility] CHLORIDE, RANDOM URINE 2022-07-30 15:52:00 Leila Costello [facility] POTASSIUM, RANDOM URINE 2022-07-30 15:52:00 Pravin [facility] Micah [facility] OSMOLALITY, URINE 2022-07-30 15:52:00 Pravin Leilaceline Obrien [facility] BLOOD GAS, ARTERIAL 2022-07-30 12:35:00 [facility] POCT-GLUCOSE METER 2022-07-30 11:49:00 Radhames [facility] BASIC METABOLIC PANEL 2022-07-30 07:37:00 Leila Costello [facility] BLOOD GAS, ARTERIAL 2022-07-30 07:36:00 [facility] POCT-GLUCOSE METER 2022-07-30 06:38:00 Radhames [facility] XR CHEST 1 VIEW PORTABLE 2022-07-30 04:52:00 Suresh Armstrong sa [facility] BLOOD GAS, ARTERIAL 2022-07-30 03:47:00 Juana Jalloh [facility] MAGNESIUM 2022-07-30 03:46:00 Sotero Mora [facility] PHOSPHORUS 2022-07-30 03:46:00 Sotero Mora [facility] CBC W/PLT COUNT & AUTO 2022-07-30 03:46:00 Sotero Mora [facility] DIFFERENTIAL [facility] CALCIUM, IONIZED 2022-07-30 03:46:00 Suresh Armstrong [facility] OSMOLALITY, SERUM 2022-07-30 03:46:00 [facility] CBC W/PLT COUNT & AUTO 2022-07-30 03:46:[address] [facility] (CELLAVISION MANUAL DIFF) 2022-07-30 03:46:00 Jayashree Bob [facility] BASIC METABOLIC PANEL 2022-07-30 00:11:00 Leila Costello [facility] POCT-GLUCOSE METER 2022-07-29 23:54:00 Radhames [facility] BASIC METABOLIC PANEL 2022-07-29 16:43:00 Leila Costello [facility] POCT-GLUCOSE METER 2022-07-29 16:42:00 Radhames [facility] POCT-GLUCOSE METER 2022-07-29 12:00:00 Radhames [facility] SODIUM 2022-07-29 11:48:00 Laurence Obrien [facility] BASIC METABOLIC PANEL 2022-07-29 06:07:00 Leila Costello [facility] POCT-GLUCOSE METER 2022-07-29 05:46:00 Radhames [facility] XR CHEST 1 VIEW PORTABLE 2022-07-29 05:10:00 Kerwin Snyder [facility] BLOOD GAS, ARTERIAL 2022-07-29 02:55:00 Juana Jalloh [facility] MAGNESIUM 2022-07-29 02:54:00 Sotero Mora [facility] PHOSPHORUS 2022-07-29 02:54:00 Abby Sotero [facility] CBC W/PLT COUNT & AUTO 2022-07-29 02:54:00 Abby S[facility]ero [facility] CALCIUM, IONIZED 2022-07-29 02:54:00 Suresh Armstrong [facility] BASIC METABOLIC PANEL 2022-07-29 02:54:00 YeimiJuana mason Polyclizeth [facility] CBC W/PLT COUNT & AUTO 2022-07-29 02:54:[address] [facility] BASIC METABOLIC PANEL 2022-07-29 00:35:00 Leila Costello [facility] POCT-GLUCOSE METER 2022-07-28 23:03:00 Radhames [facility] RRL CRITICAL LABS 2022-07-28 20:57:00 Marybeth Beltran [facility] Claudette ukes (ABG,NA,K,H&H,GLUCOSE) Medical C enter BLOOD GAS, ARTERIAL 2022-07-28 20:57:00 Marybeth Beltran [facility] SODIUM NA-STAT LAB 2022-07-28 20:57:00 Marybeth Beltran [facility] POTASSIUM-STAT LAB 2022-07-28 20:57:00 Marybeth Beltran [facility] GLUCOSE-STAT LAB 2022-07-28 20:57:00 Marybeth Beltran [facility] HGB/HCT (H&H) - STAT LAB 2022-07-28 20:57:00 Marybeth Beltran [facility] RRL CRITICAL LABS 2022-07-28 18:15:31 Marybeth Beltran [facility] L ukes (ABG,NA,K,H&H,GLUCOSE) Medical C enter SODIUM NA-STAT LAB 2022-07-28 18:15:31 Marybeth Beltran [facility] POTASSIUM-STAT LAB 2022-07-28 18:15:20 Marybeth Beltran [facility] HGB/HCT (H&H) - STAT LAB 2022-07-28 18:15:05 Marybeth Beltran [facility] GLUCOSE-STAT LAB 2022-07-28 18:14:43 Marybeth Beltran [facility] BLOOD GAS, ARTERIAL 2022-07-28 17:20:38 Marybeth Beltran [facility] POCT-GLUCOSE METER 2022-07-28 15:53:00 Ki Ricci [facility] RRL CRITICAL LABS 2022-07-28 15:24:00 Marybeth Beltran [facility] L ukes (ABG,NA,K,H&H,GLUCOSE) Medical C enter BLOOD GAS, ARTERIAL 2022-07-28 15:24:00 Marybeth Beltran [facility] SODIUM NA-STAT LAB 2022-07-28 15:24:00 Marybeth Beltran [facility] POTASSIUM-STAT LAB 2022-07-28 15:24:00 Marybeth Beltran [facility] GLUCOSE-STAT LAB 2022-07-28 15:24:00 Marybeth Beltran [facility] HGB/HCT (H&H) - STAT LAB 2022-07-28 15:24:00 Marybeth Beltran [facility] BASIC METABOLIC PANEL 2022-07-28 15:24:00 Pravin Leilaceline Santos [facility] BLOOD GAS, ARTERIAL 2022-07-28 13:05:00 Marybeth Beltran [facility] SODIUM NA-STAT LAB 2022-07-28 13:05:00 Marybeth Beltran [facility] POTASSIUM-STAT LAB 2022-07-28 13:05:00 Marybeth Beltran [facility] GLUCOSE-STAT LAB 2022-07-28 13:05:00 Marybeth Beltran [facility] HGB/HCT (H&H) - STAT LAB 2022-07-28 13:05:00 Marybeth Beltran [facility] BASIC METABOLIC PANEL 2022-07-28 13:05:00 Leila Costello [facility] RRL CRITICAL LABS 2022-07-28 13:05:00 Marybeth Beltran [facility]3] ukes (ABG,NA,K,H&H,GLUCOSE) Medical C enter RRL CRITICAL LABS 2022-07-28 11:35:00 Marybeth Beltran [facility] L ukes (ABG,NA,K,H&H,GLUCOSE) Medical C enter BLOOD GAS, ARTERIAL 2022-07-28 11:35:00 Marybeth Beltran [facility] SODIUM NA-STAT LAB 2022-07-28 11:35:00 Marybeth Beltran [facility] POTASSIUM-STAT LAB 2022-07-28 11:35:00 Marybeth Beltran [facility] GLUCOSE-STAT LAB 2022-07-28 11:35:00 Marybeth Beltran [facility] HGB/HCT (H&H) - STAT LAB 2022-07-28 11:35:00 Marybeth Beltran [facility] BASIC METABOLIC PANEL 2022-07-28 11:35:00 PravinLeila parkalec Santos [facility] POCT-GLUCOSE METER 2022-07-28 11:32:00 Ki Ricci [facility] BASIC METABOLIC PANEL 2022-07-28 08:44:00 [facility] 2022-07-28 08:44:00 Laurence Obrien [facility] (ABG,NA,K,H&H,GLUCOSE) Medical C enter CALCIUM, IONIZED 2022-07-28 08:44:00 Laurence Obrien [facility] BLOOD GAS, ARTERIAL 2022-07-28 08:44:00 Laurence Obrien [facility] SODIUM NA-STAT LAB 2022-07-28 08:44:00 Laurence Obrien [facility] POTASSIUM-STAT LAB 2022-07-28 08:44:00 Laurence Obrien [facility] GLUCOSE-STAT LAB 2022-07-28 08:44:00 Laurence Obrien [facility] HGB/HCT (H&H) - STAT LAB 2022-07-28 08:44:00 Laurence Obrien [facility] POCT-GLUCOSE METER 2022-07-28 07:38:00 Ki Ricci [facility] POCT-GLUCOSE METER 2022-07-28 06:46:00 Radhames [facility] XR CHEST 1 VIEW PORTABLE 2022-07-28 05:00:00 Kerwin Snyder [facility] LACTIC ACID, ARTERIAL 2022-07-28 04:28:00 Suresh Armstrong [facility] SODIUM NA-STAT LAB 2022-07-28 04:22:00 Jayashree Bob [facility] POTASSIUM-STAT LAB 2022-07-28 04:22:00 Jayashree Bob [facility] GLUCOSE-STAT LAB 2022-07-28 04:22:00 Jayashree Bob [facility] HGB/HCT (H&H) - STAT LAB 2022-07-28 04:22:00 Jayashree Bob [facility] BLOOD GAS, ARTERIAL 2022-07-28 04:08:00 Jayashree Bob [facility] CALCIUM, IONIZED 2022-07-28 01:10:00 Suresh Armstrong [facility] CBC W/PLT COUNT & AUTO 2022-07-28 01:09:[address] [facility] CBC W/PLT COUNT & AUTO 2022-07-28 01:09:[address] [facility] BLOOD GAS, ARTERIAL 2022-07-28 01:08:00 Jayashree Bob [facility] RRL CRITICAL LABS 2022-07-28 01:05:00 Jayashree Bob [facility] (ABG,NA,K,H&H,GLUCOSE) Medical C enter SODIUM NA-STAT LAB 2022-07-28 01:05:00 Jayashree Bob [facility] POTASSIUM-STAT LAB 2022-07-28 01:05:00 Jayashree Bob [facility] GLUCOSE-STAT LAB 2022-07-28 01:05:00 Jayashree Bob [facility] HGB/HCT (H&H) - STAT LAB 2022-07-28 01:05:00 Jayashree Bob [facility] MAGNESIUM 2022-07-28 01:05:00 Sotero Mora [facility] PHOSPHORUS 2022-07-28 01:05:00 Sotero Mora [facility] BASIC METABOLIC PANEL 2022-07-28 01:05:00 Jayashree Bob [facility] POCT-GLUCOSE METER 2022-07-27 23:55:00 Indira Ornelas [facility] BLOOD GAS, ARTERIAL 2022-07-27 20:09:00 Suresh Armstrong [facility] RRL CRITICAL LABS 2022-07-27 20:07:00 Jayashree Bob [facility] (ABG,NA,K,H&H,GLUCOSE) Medical C enter SODIUM NA-STAT LAB 2022-07-27 20:07:00 Jayashree Bob [facility] POTASSIUM-STAT LAB 2022-07-27 20:07:00 Jyaashree Bob [facility] GLUCOSE-STAT LAB 2022-07-27 20:07:00 Jayashree Bob [facility] HGB/HCT (H&H) - STAT LAB 2022-07-27 20:07:00 Jayashree Bob [facility] BASIC METABOLIC PANEL 2022-07-27 20:07:00 Suresh Armstrong [facility] DE INSERT 2022-07-27 18:11:10 Jayashree Bob [facility] CATH,ART,PERCUT,[facility] INSERT NON-TUNNEL CV CATH 2022-07-27 18:07:22 Jayashree Bob I [facility] XR CHEST 1 VIEW PORTABLE 2022-07-27 17:14:00 Jayashree Bob [facility] BLOOD CULTURE 2022-07-27 16:02:00 Jayashree Bob [facility] BLOOD GAS, ARTERIAL 2022-07-27 16:02:00 Jayashree Bob [facility] MAGNESIUM 2022-07-27 16:02:00 Jayashree Bob [facility] PHOSPHORUS 2022-07-27 16:02:00 Jayashree Bob [facility] BASIC METABOLIC PANEL 2022-07-27 16:02:00 Jayashree Bob [facility] XR CHEST 1 VIEW PORTABLE 2022-07-27 14:38:00 Jayashree Bob [facility] BLOOD CULTURE 2022-07-27 14:33:00 Jayashree Bob [facility] LACTIC ACID, ARTERIAL 2022-07-27 14:28:00 Jayashree Bob [facility] APTT 2022-07-27 14:28:00 Jayashree Bob [facility] PROTHROMBIN TIME/INR 2022-07-27 14:28:00 Jayashree Bob [facility] CBC W/PLT COUNT & AUTO 2022-07-27 14:28:[address] [facility] PROCALCITONIN 2022-07-27 14:28:00 Jayashree Bob [facility] CBC W/PLT COUNT & AUTO 2022-07-27 14:28:[address] [facility] HEPATIC FUNCTION PANEL 2022-07-27 13:22:00 Ki Ricci [facility] POCT-GLUCOSE METER 2022-07-27 11:48:00 Indira Ornelas [facility] POCT-GLUCOSE METER 2022-07-27 11:28:00 Indira Ornelas [facility] CBC W/PLT COUNT & AUTO 2022-07-27 09:06:00 Stephen Stokes [facility] BASIC METABOLIC PANEL 2022-07-27 09:06:[address] [facility] CBC W/PLT COUNT & AUTO 2022-07-27 09:06:00 Stephen Stokes [facility] (CELLAVISION MANUAL DIFF) 2022-07-27 09:06:00 Stephen Stokes [facility] POCT-GLUCOSE METER 2022-07-27 08:10:00 Indira Ornelas [facility] URINE CULTURE 2022-07-27 08:06:00 Stephen Stokes [facility] URINALYSIS W/ REFLEX 2022-07-27 08:06:00 Stephen Stokes [facility] URINE CULTURE [facility] BASIC METABOLIC PANEL 2022-07-27 05:35:00 Helena Mukherjee [facility] MAGNESIUM 2022-07-27 05:35:00 Sotero Mora [facility] PHOSPHORUS 2022-07-27 05:35:00 [facility] [facility] CBC W/PLT COUNT & AUTO 2022-07-27 05:35:[address] [facility] CBC W/PLT COUNT & AUTO 2022-07-27 05:35:00 [facility]LL[facility]UAL DIFF) 2022-07-27 05:35:[address] [facility] POCT-GLUCOSE METER 2022-07-26 21:55:00 Indira Ornelas [facility] POCT-GLUCOSE METER 2022-07-26 17:03:00 [facility] POCT-GLUCOSE METER 2022-07-26 13:28:00 [facility] CT CHEST WITHOUT IV 2022-07-26 11:49:00 Holley Mustafa [facility] POCT-GLUCOSE METER 2022-07-26 09:09:00 [facility] XR CHEST 1 VIEW PORTABLE 2022-07-26 06:24:00 Tammie Harrington Ray [facility] / BEDSIDE [facility] BASIC METABOLIC PANEL 2022-07-26 05:07:00 [facility] 2022-07-26 05:07:00 Sotero Mora [facility] PHOSPHORUS 2022-07-26 05:07:00 Sotero Mora [facility] CBC W/PLT COUNT & AUTO 2022-07-26 05:07:00 [facility] C-REACTIVE PROTEIN 2022-07-26 05:07:00 Holley Mustafa [facility] B-TYPE NATRIURETIC FACTOR 2022-07-26 05:07:00 Leila Csotello [facility] (BNP) [facility] CBC W/PLT COUNT & AUTO 2022-07-26 05:07:[address] [facility] (CELLAVISION MANUAL DIFF) 2022-07-26 05:07:00 [facility] POCT-[facility]UCOSE METER 2022-07-25 20:50:00 [facility] PORTABLE 2022-07-25 19:40:00 Indira Ornelas [facility] POCT-GLUCOSE METER 2022-07-25 16:34:00 [facility] BASIC METABOLIC PANEL 2022-07-25 15:05:00 Leila Costello [facility] US THORACENTESIS 2022-07-25 14:11:00 Indira Ornelas [facility] BODY FLUID CELL COUNT 2022-07-25 13:57:00 Johnson [facility] WITH DIFFERENTIAL [facility] BODY FLUID CULTURE + GRAM 2022-07-25 13:57:00 Johnson [facility] PROTEIN, BODY FLUID 2022-07-25 13:56:00 Johnson [facility] LACTATE DEHYDROGENASE 2022-07-25 13:56:00 Indira Ornelas [facility] ([facility] BODY FLUID [facility] GLUCOSE, BODY FLUID 2022-07-25 13:56:00 Johnson [facility] XR CHEST 1 VIEW PORTABLE 2022-07-25 13:55:00 Cherri Joyce on [facility] POCT-GLUCOSE METER 2022-07-25 11:17:00 Indira Ornelas [facility] PT/APTT 2022-07-25 10:01:00 Raul Branham [facility] XR CHEST 1 VIEW PORTABLE 2022-07-25 07:21:00 Tammie Harrington [facility] POCT-GLUCOSE METER 2022-07-25 06:45:00 Stephen Stokes [facility] BASIC METABOLIC PANEL 2022-07-25 04:50:00 Helena Mukherjee [facility] MAGNESIUM 2022-07-25 04:50:00 Sotero Mora [facility] PHOSPHORUS 2022-07-25 04:50:00 Sotero Mora [facility] CBC W/PLT COUNT & AUTO 2022-07-25 04:50:[address] [facility] CORTISOL 2022-07-25 04:50:00 Leila Costello [facility] CBC W/PLT COUNT & AUTO 2022-07-25 04:50:00 [facility] (CELL[facility]ISION MANUAL DIFF) 2022-07-25 04:50:00 Helena Mukherjee [facility] I [facility] POCT-GLUCOSE METER 2022-07-24 20:53:00 Stephen Stokes [facility] LIMITED 2D ECHOCARDIOGRAM 2022-07-24 17:53:02 Leila Costello [facility] BASIC METABOLIC PANEL 2022-07-24 17:30:00 Leila Costello [facility] POCT-GLUCOSE METER 2022-07-24 16:35:00 Stephen Stokes [facility] POCT-GLUCOSE METER 2022-07-24 11:34:00 Stephen Stokes [facility] LACTIC ACID, VENOUS 2022-07-24 11:01:00 Leila Costello [facility] CONT WAVE PULSED DOPPLER 2022-07-24 10:15:09 Leila Costello [facility] POCT-GLUCOSE METER 2022-07-24 08:15:00 Stephen Stokes [facility] XR CHEST 1 VIEW PORTABLE 2022-07-24 07:15:00 Tammie Harrington Ray [facility] BASIC METABOLIC PANEL 2022-07-24 04:13:00 Helena Mukherjee [facility] MAGNESIUM 2022-07-24 04:13:00 Sotero Mora [facility] PHOSPHORUS 2022-07-24 04:13:00 Sotero Mora [facility] CBC W/PLT COUNT & AUTO 2022-07-24 04:13:[address] [facility] LIPASE 2022-07-24 04:13:00 [facility] HEPATIC FUNCTION PANEL 2022-07-24 04:13:00 Amaratunge [facility] IRON, TIBC, % SAT. 2022-07-24 04:13:00 Leila Costello [facility] (WITHOUT FERRITIN) Medical Cent[facility] r FERRITIN 2022-07-24 04:13:00 Pravin Leilaceline Obrien [facility] VITAMIN B12 2022-07-24 04:13:00 Pravin [facility] Micah [facility] CREATINE KINASE (CK) 2022-07-24 04:13:00 Pravin Leilaceline Obrien [facility] TSH/FREE T4 IF INDICATED 2022-07-24 04:13:00 Leila Costello [facility] CBC W/PLT COUNT & AUTO 2022-07-24 04:13:[address] [facility] POCT-GLUCOSE METER 2022-07-23 20:38:00 Kike [facility] SODIUM, RANDOM URINE 2022-07-23 17:56:00 Pravin Leilaceline Obrien [facility] OSMOLALITY, URINE 2022-07-23 17:56:00 Pravin [facility] CHLORIDE, RANDOM URINE 2022-07-23 17:56:00 Pravin Leilaceline Obrien [facility] OSMOLALITY, SERUM 2022-07-23 17:48:00 Pravin Leilaceline Obrien [facility] CT ABDOMEN/PELVIS WITH IV 2022-07-23 16:54:00 Charly Espinoza [facility] POCT-GLUCOSE METER 2022-07-23 16:53:00 [facility] POCT-GLUCOSE METER 2022-07-23 11:37:00 [facility] POCT-GLUCOSE METER 2022-07-23 08:08:00 Stephen Stokes [facility] XR CHEST 1 VIEW PORTABLE 2022-07-23 07:22:00 LenStefanoil Ray [facility] BASIC METABOLIC PANEL 2022-07-23 05:38:00 [facility]UM 2022-07-23 05:38:00 Sotero Mora [facility] PHOSPHORUS 2022-07-23 05:38:00 Sotero Mora [facility] CBC W/PLT COUNT & AUTO 2022-07-23 05:38:00 Lonny [facility] CBC W/PLT COUNT & AUTO 2022-07-23 05:38:00 Lonny [facility] POCT-GLUCOSE METER 2022-07-22 20:56:00 Kike [facility] POCT-GLUCOSE METER 2022-07-22 16:30:00 [facility] POCT-GLUCOSE METER 2022-07-22 11:25:00 [facility] POCT-GLUCOSE METER 2022-07-22 07:16:00 [facility] XR CHEST 1 VIEW PORTABLE 2022-07-22 07:03:00 LenTammie vega Ray [facility] BASIC METABOLIC PANEL 2022-07-22 05:15:00 [facility]UM 2022-07-22 05:15:00 Sotero Mora [facility] PHOSPHORUS 2022-07-22 05:15:00 Sotero Mora [facility] CBC W/PLT COUNT & AUTO 2022-07-22 05:15:00 Lonny [facility] CBC W/PLT COUNT & AUTO 2022-07-22 05:15:00 Lonny [facility] POCT-GLUCOSE METER 2022-07-21 22:39:00 KikeStephen [facility] POCT-GLUCOSE METER 2022-07-21 17:29:00 KikeStephen [facility] XR ABDOMEN/KUB 1 VIEW 2022-07-21 13:18:00 Charly Espinoaz [facility] POCT-GLUCOSE METER 2022-07-21 11:34:00 Stephen Stokes [facility] POCT-GLUCOSE METER 2022-07-21 08:24:00 [facility] XR CHEST 1 VIEW PORTABLE 2022-07-21 06:45:00 Tammie Harrington [facility] BASIC METABOLIC PANEL 2022-07-21 04:23:00 Lonny [facility] MAGNESIUM 2022-07-21 04:23:00 Sotero Mora [facility] PHOSPHORUS 2022-07-21 04:23:00 Sotero Mora [facility] CBC W/PLT COUNT & AUTO 2022-07-21 04:23:00 Lonny [facility] CBC W/PLT COUNT & AUTO 2022-07-21 04:23:00 [facility] POCT-GLUCOSE METER 2022-07-20 21:02:00 [facility] SARS-COV2/RT-PCR ([facility] & 2022-07-20 16:39:00 Sotero Mora [facility] REF LABS) [facility] POCT-GLUCOSE METER 2022-07-20 16:06:00 [facility] XR CHEST 1 VIEW PORTABLE 2022-07-20 14:53:00 Cherri Joyce [facility] US THORACENTESIS 2022-07-20 14:39:00 [facility] POCT-GLUCOSE METER 2022-07-20 12:03:00 [facility] XR ABDOMEN/KUB 1 VIEW 2022-07-20 10:36:00 Charly Espinoza [facility] PT/APTT 2022-07-20 09:05:00 [facility] PROTHROMBIN TIME/INR 2022-07-20 09:05:00 [facility] POCT-GLUCOSE METER 2022-07-20 07:39:00 [facility] XR CHEST 1 VIEW PORTABLE 2022-07-20 06:41:00 Tammie Harrington [facility] BASIC METABOLIC PANEL 2022-07-20 04:42:00 Lonny [facility] MAGNESIUM 2022-07-20 04:42:00 Sotero Mora [facility] PHOSPHORUS 2022-07-20 04:42:00 Abby Sotero [facility] CBC W/PLT COUNT & AUTO 2022-07-20 04:42:00 LonnyCentinela [facility] CBC W/PLT COUNT & AUTO 2022-07-20 04:42:00 [facility] POCT-GLUCOSE METER 2022-07-19 20:29:00 [facility] POCT-GLUCOSE METER 2022-07-19 16:03:00 [facility] 2D ECHO W/ DOPPLER 2022-07-19 13:17:24 Uziel Martinez [facility] (CW/PW/COLOR) [facility] POCT-GLUCOSE METER 2022-07-19 11:23:00 [facility] POCT-GLUCOSE METER 2022-07-19 07:43:00 [facility] XR CHEST 1 VIEW PORTABLE 2022-07-19 06:41:00 Tammie Harrnigton [facility] OXYGEN SATURATION, 2022-07-19 04:15:00 Tammie Harrington [facility] BASIC METABOLIC PANEL 2022-07-19 04:14:00 [facility]UM 2022-07-19 04:14:00 Abby Sotero Gamboa [facility] PHOSPHORUS 2022-07-19 04:14:00 Sotero Mora [facility] CBC W/PLT COUNT & AUTO 2022-07-19 04:14:00 Lonny [facility] CBC W/PLT COUNT & AUTO 2022-07-19 04:14:00 Lonny [facility] POCT-GLUCOSE METER 2022-07-18 20:40:00 [facility] POCT-GLUCOSE METER 2022-07-18 16:38:00 [facility] POCT-GLUCOSE METER 2022-07-18 11:34:00 [facility] CBC W/PLT COUNT & AUTO 2022-07-18 10:46:00 Lonny [facility] CBC W/PLT COUNT & AUTO 2022-07-18 10:46:00 Lonny [facility] XR CHEST 1 VIEW PORTABLE 2022-07-18 07:05:00 Jr Lengreenvilleeris [facility] MAGNESIUM 2022-07-18 04:46:00 Sotero Mora [facility] RRL CRITICAL LABS 2022-07-18 04:46:00 Len [facility] (ABG,NA,K,H&H,GLUCOSE) Medical C enter SODIUM NA-STAT LAB 2022-07-18 04:46:00 Jr Lengreenvilleeris [facility] POTASSIUM-STAT LAB 2022-07-18 04:46:00 [facility] 2022-07-18 04:46:00 [facility] (H&H[facility] - STAT LAB 2022-07-18 04:46:00 [facility] BASIC METABOLIC PANEL 2022-07-18 04:46:00 [facility] 2022-07-18 04:46:00 AbbySotero [facility] OXYGEN SATURATION, 2022-07-18 04:46:00 Tammie Harrington [facility] ECG 12-LEAD 2022-07-18 00:37:[address] [facility] ECG 12-LEAD 2022-07-18 00:37:13 Unknown, Hl7 [facility] ECG 12-LEAD 2022-07-18 00:35:37 Unknown, Hl7 [facility] ECG 12-LEAD 2022-07-18 00:35:37 Unknown, Hl7 [facility] XR CHEST 1 VIEW PORTABLE 2022-07-17 14:38:00 Marybeth Beltran [facility] POCT-GLUCOSE METER 2022-07-17 11:56:00 Stephen Stokes [facility] POCT-GLUCOSE METER 2022-07-17 07:35:00 Kike [facility] POCT-GLUCOSE METER 2022-07-16 22:28:00 Kike [facility] POCT-GLUCOSE METER 2022-07-16 15:58:00 K[facility] POCT-GLUCOSE METER 2022-07-16 11:36:00 Stephen Stokes [facility] POCT-GLUCOSE METER 2022-07-16 07:08:00 Stephen Stokes [facility] XR CHEST 1 VIEW PORTABLE 2022-07-16 03:19:00 Kristian Joseph CH, I [facility] POCT-GLUCOSE METER 2022-07-15 23:11:00 Stephen Stokes [facility] POCT-GLUCOSE METER 2022-07-15 16:29:00 [facility] POCT-GLUCOSE METER 2022-07-15 08:08:00 K[facility] POCT-GLUCOSE METER 2022-07-15 06:21:00 Stephen Stokes [facility] POCT-GLUCOSE METER 2022-07-14 15:18:00 Stephen Stokes [facility] XR CHEST 1 VIEW PORTABLE 2022-07-14 12:10:00 Letty Goodwin [facility] POCT-ACT 2022-07-14 10:31:00 [facility] POCT-ACT 2022-07-14 09:55:00 [facility] POCT-ACT 2022-07-14 09:37:00 [facility] POCT-ACT 2022-07-14 09:05:00 [facility] CABG, USING INTERNAL 2022-07-14 08:09:00 Stephen Stokes [facility] THORACIC ARTERY AND [facility] er SAPHENOUS VEIN GRAFT SURGICAL PROCUREMENT, 2022-07-14 08:09:00 Stephen Stokes [facility] VEIN, ENDOSCOPIC [facility] ABORH, MANUAL 2022-07-14 07:08:00 Perla Beard [facility] POCT-GLUCOSE METER 2022-07-14 06:02:00 [facility] PERMANENT LAB REPORT - 2022-07-14 00:00:00 Provider, Calli [facility] PERIOPERATIVE ECO REPORT 2022-07-14 00:00:00 Provider, Calli Santos [facility] EKG-SCANNED 2022-07-14 00:00:00 Provider, Call[facility] UROLOGY REPORT - SCAN 2022-07-14 00:00:00 Provider, Default [facility] XR CHEST 2 VIEWS 2022-06-25 10:46:00 Stephen Stokes [facility] BASIC METABOLIC PANEL 2022-06-25 10:08:[address] [facility] CBC W/PLT COUNT & AUTO 2022-06-25 10:08:00 Stephen Stokes [facility] DIFFERENTIAL [facility] HEMOGLOBIN A1C 2022-06-25 10:08:00 Stephen Stokes [facility] LIPID PANEL 2022-06-25 10:08:00 Stephen Stokes [facility] PROTHROMBIN TIME/INR 2022-06-25 10:08:00 Stephen Stokes [facility] TYPE AND SCREEN, 2022-06-25 10:08:00 [facility] CBC W/PLT COUNT & AUTO 2022-06-25 10:08:00 Stephen Stokes [facility] DIFFERENTIAL [facility] COVID ANTIGEN 2022-06-25 10:01:00 Stephen Stokes [facility] ECG 12-LEAD 2022-06-25 09:29:49 Stephen Stokes [facility] ECG 12-LEAD 2022-06-25 09:29:49 Unknown, Hl7 [facility] Plan of Care Planned Activity Planned Date Details Comments Source Future Scheduled 2023-06-[address] [facility] 00:00:00 [facility]ing [facility] Medical Cente r Screening (12+) [code = Tobacco Cessation Counseling and Screening (12+)] Future Scheduled 2022-09-[address] [facility] 00:00:00 (12+) [code = Medical Center DEPRESSION SCREENING (12+)] Future Scheduled 2022-09-27 FALLS RISK SCREENING [facility] 00:00:00 [code = FALLS RISK Medical C enter SCREENING] Future Scheduled 2022-06-[address] [facility] 00:00:00 [facility] (procedure) [code = 54178321] Future Scheduled 2022-05-28 INFLUENZA VACCINE (#1) [facility] 00:00:00 [code = INFLUENZA Medical Ce nter VACCINE (#1)] Future Scheduled 2022-02-03 COVID-19 VACCINE (3 - [facility] 00:00:00 Booster for [facility] series) [code = COVID-19 VACCINE (3 - Booster for Tanisha series)] Future Scheduled 2006-12-[address] [facility] 00:00:00 WELLNESS (YEAR 2 or Medical Center FIRST YEAR if no IPPE) [code = MEDICARE ANNUAL WELLNESS (YEAR 2 or FIRST YEAR if no IPPE)] Future Scheduled 1991 SHINGLES VACCINES ([address] [facility] 00:00:00 of 2) [code = SHINGLES Medic al Center VACCINES (1 of 2)] Future Scheduled 1960-01-09 DTAP/TDAP/TD VACCINES [facility] 00:00:00 (1 - Tdap) [code = Medical C enter DTAP/TDAP/TD VACCINES (1 - Tdap)] Future Scheduled 1951 DIABETIC EYE EXAM [facility] 00:00:00 [code = DIABETIC EYE Medical Center EXAM] Future Scheduled [address] [facility] Test 00:00:00 examination [facility] (regime/therapy) [code = 185212096] Future Scheduled 1951 Urine screening for [facility] 00:00:00 protein (procedure) [facility] [code = 657854426] Future Scheduled 1947 PNEUMOCOCCAL 65+ YRS [facility] Test 00:00:00 (1 - PCV) [code = Medical Ce nter PNEUMOCOCCAL 65+ YRS (1 - PCV)] Future Scheduled 1941 DXA SCAN [code = DXA [facility] Test 00:00:00 SCAN] [facility] Encounters Start End Encounter Admission Attending Care Care Encounter Source Date/Time Date/Time Type Type Clinicians Facility Department ID 2022-06-17 Inpatient CARMEN STOKESPAZFay Surgery [id number] [facility] 12:20:14 STEPHEN 2021-10-22 Outpatient Crespo, [facility] [id number] Common 12:13:51 Terell 79747 [facility] 2021-10-22 Outpatient Crespo, [facility] [id number] Common 11:29:56 Terell 77211 [facility] 2021-10-22 Outpatient Crespo, [facility] [id number] Common 11:09:26 Terell [id number] [facility] 2022-09-22 2022-09-22 Office DIONY Stokes [id number] 10:00:00 10:30:00 Visit [facility] 2022-09-22 2022-09-22 Outpatient CARMEN KIKEHOLLY [facility] [id number] [facility] 10:10:33 10:10:33 [facility] 2022-09-18 2022-09-18 Telephone Lucio [facility] [id number] 00:00:00 00:00:00 [facility] 2022-07-14 2022-08-14 Inpatient HOLLY MEDINA Surgery [id number] SLE 11:50:00 16:35:00 CHARLY 6 2022-07-14 2022-08-14 [facility] Stephen [facility] [id number] 11:50:00 16:35:00 Encounter Indira Ornelas [address] [place] [address] Radhames, Ki [facility] Gaby, Ryan Martinez [place] Robby, Charly Perry, Nicolasa Julian 2022-07-18 2022-07-18 Outpatient [facility] [id number] [address] [place] [address] 00:00:00 23:59:00 Jun 2022-07-14 2022-07-[address] [facility] [id number] 08:00:00 12:30:00 [facility] 2022-06-25 2022-06-25 Outpatient HOLLY GARNER [facility] [id number] [facility] 10:27:57 23:59:00 [facility] 2022-06-25 2022-06-25 [facility] [id number] 10:27:57 23:59:00 Encounter [facility] 2022-06-25 2022-06-25 Office [facility] [id number] 09:30:00 09:45:00 Visit Dee [facility] 2022-06-25 2022-06-25 Outpatient SLE SLE [id number] SLE 09:26:11 09:26:11 2022-06-25 2022-06-25 Orders [facility] [id number] 00:00:00 00:00:00 [facility] 2022-06-24 2022-06-24 Outpatient SLE SLE [id number] [facility] 10:27:10 23:59:00 2022-06-24 2022-06-24 [facility] [id number] 10:00:00 23:59:00 [facility] 2022-06-24 2022-06-24 Travel [facility] [id number] [facility] 00:[facility]:00 00:00:00 [facility] 2022-06-09 2022-06-09 Office Kike [facility] [id number] 10:00:00 10:30:00 Visit [facility] 2022-06-09 2022-06-09 Outpatient HOLLY GARNER [facility] [id number] SLE 09:48:05 09:48:05 STEPHEN 2020-09-11 2020-09-11 [facility] [id number] Common 00:00:00 00:00:00 AUDIO Spirit TELEMEDICI - [facility] 2020-09-09 2020-09-09 (TEL) [facility] [id number] Co mmon 00:00:00 00:00:00 [facility] 2020-09-09 2020-09-09 [facility]TEL) [facility] [id number] Co mmon 00:00:00 00:00:00 [facility] 2020-05-30 2020-05-30 [facility] [id number] Common 15:20:00 15:20:[address] [facility] 2020-04-09 2020-04-09 Outpatient [facility] [id number] Common 11:30:00 11:30:[address] [facility] 2020-03-27 2020-03-27 Outpatient [facility] [id number] Common 11:06:00 11:06:[address] [facility] 2020-02-21 2020-02-21 Outpatient [facility] [id number] Common 14:00:00 14:00:[address] [facility] 2020-02-21 2020-02-21 Outpatient [facility] [id number] Common 14:00:00 14:00:[address] [facility] 2020-02-16 2020-02-16 Outpatient [facility] [id number] Common 14:05:00 14:05:[address] [facility] 2019-12-04 2019-12-04 Outpatient [facility] [id number] Common 15:27:00 15:27:[address] [facility] 2019-11-21 2019-11-21 Outpatient [facility] [id number] Common 14:45:00 14:45:[address] [facility] 2019-11-08 2019-11-08 Outpatient [facility] [id number] Common 16:47:00 16:47:[address] [facility] 2019-11-03 2019-11-03 Outpatient [facility] [id number] Common 14:29:00 14:29:[address] [facility] 2019-06-15 2019-06-15 Outpatient [facility] [id number] Common 14:45:00 14:45:[address] [facility] 2019-03-16 2019-03-16 Outpatient [facility] [id number] Common 14:00:00 14:00:[address] [facility] 2019-01-19 2019-01-19 Outpatient [facility] [id number] Common 14:45:00 14:45:[address] [facility] 2018-12-14 2018-12-14 Outpatient [facility] [id number] Common 14:14:00 14:14:[address] [facility] 2018-12-14 2018-12-14 Out[facility] [id number] Common 14:00:00 14:00:[address] [facility] 2018-11-07 2018-11-07 Outpatient Beth Campost [id number] Common 13:32:00 13:32:[address] [facility] 2018-09-15 2018-09-15 Outpatient Beth Campost [id number] Common 14:00:00 14:00:[address] [facility] Results Test Description Test Time Test Comments Results Result Sourc e Comments RAD, CHEST, 1 2022-10-02 downtime order VIEW, NON DEPT 07:11:00 for 07/14 [facility] #[id number] [facility] : 1940 Sex: F FINAL REPORT INDICATION: Cardiac surgery COMPARISON: None TECHNIQUE: Single frontal view of the chest. Claudia [id number]/14/ 1940 FINDINGS: Lines, tubes, and devices: The endotracheal tube tip overlies the trachea. The nasogastric tube tip overlies the stomach. A mediastinal drain and left-sided chest tube are seen. The right internal jugular vein central venous catheter tip overlies the superior vena cava. The right IJ [place] catheter tip overlies the right main pulmonary artery.Lungs and pleura: Scattered linear atelectasis is present. No effusion.Heart and mediastinum: Postoperative changes from median sternotomy Osseous structures: No acute abnormality.Other: None. IMPRESSION: Expected postoperative changes from recent median sternotomy The life support lines and tubes project in good position. Signed by: Javi Hutson on 07/14/2022 2:24 PM Signed: ElectronicallyVer, Radiology MDReport Verified Date/Time: 10/02/2022 07:11:23 -Glucose meter 2022-08-14 12:35:29 Test Item Value Reference Range Interpretation Comme nts POC-Glucose Meter (test code = 105 mg/dL 70-110 : TESTED AT [facility] [address] [facility] 1538) [facility], [facility] 30: Associate Professor Of Mathematics/Techni wendi ID = [id number] for Al Mallory a Lab Interpretation (test code = Normal 80798-7) [facility] [id number] 12:35:29 Test Item Value Reference Range Interpretation Comments POC-GLUCOSE METER 105 mg/dL 70-110 : TESTED A T [facility] 6720 (BEAKER) (test code = [facility], 1538) [address]: Associate Professor Of Mathematics/Techni wendi ID = [id number] for Ba rrera, Meri POCT-GLUCOSE [id number] 08:21:55 Test Item Value Reference Range Interpretation Comments POC-GLUCOSE METER 105 mg/dL 70-110 : TESTED A T [facility] 6720 (BEAKER) (test code = [facility], 1538) [address]: Associate Professor Of Mathematics/Techni wendi ID = [id number] for Ba rrera, Meri POCT-GLUCOSE [id number] 06:55:57 Test Item Value Reference Range Interpretation Comments POC-GLUCOSE METER 109 mg/dL 70-110 : TESTED A T [facility] 6720 (BEAKER) (test code = [facility], 1538) [address]: Associate Professor Of Mathematics/Techni wendi ID = [id number] for SHEKHAR GLASS [id number] 04:20:23 Test Item Value Reference Range Interpretation Comments PHOSPHORUS (BEAKER) 3.6 mg/dL 2.3-4.7 Specimen slightly (test code = 604) hemolyzed Associate Professor Of Mathematics ID - YAHAIRA GBASIC METABOLIC [id number] 04:20:23 Test Item Value Reference Range Interpretation Comments SODIUM (BEAKER) 137 meq/L 136-145 (test code = 381) POTASSIUM 3.9 meq/L 3.5-5.1 Specimen slight ly (BEAKER) (test hemolyzed code = 379) CHLORIDE (BEAKER) 96 meq/L 98-107 L (test code = 382) CO2 (BEAKER) 34 meq/L 22-29 H (test code = 355) BLOOD UREA 18 mg/dL 7-21 NITROGEN (BEAKER) (test code = 354) CREATININE 0.98 mg/dL 0.57-1.25 Specimen slight ly (BEAKER) (test hemolyzed code = 358) GLUCOSE RANDOM 100 mg/dL 70-105 (BEAKER) (test code = 652) CALCIUM (BEAKER) 9.1 mg/dL 8.4-10.2 (test code = 697) EGFR (BEAKER) 58 Interpretatio n of eGFR (test code = mL/min/1.73 values Stage De scription 1092) sq m Result G1 Cecilia l or high >=90 G2 Mildly decreased 60-89 G3a Mildl y to moderately 45-5 9 G3b Moderately to s everely 30-44 G4 Severl y decreased 15-29 G5 Kidney failure <15Reported eGF R is based on the CKD-EPI 2020 equation that d oes not use a race coefficientEsti mated GFR is not as accur ate as Creatinine Susanne lund in predicting glom erular filtration rate . Estimated GFR is not appl icable for dialysis patien ts Associate Professor Of Mathematics ID - YAHAIRA [id number] 04:20:22 Test Item Value Reference Range Interpretation Comments MAGNESIUM (BEAKER) 1.9 mg/dL 1.6-2.6 Specimen slightly (test code = 627) hemolyzed Associate Professor Of Mathematics ID - YAHAIRA GCBC W/PLT COUNT & AUTO [id number] 03:57:40 Test Item Value Reference Range Interpretation Comments WHITE BLOOD CELL COUNT (BEAKER) 5.0 K/ L 3.5-10.5 (test code = 775) RED BLOOD CELL COUNT (BEAKER) 3.04 M/ L 3.93-5.22 L (test code = 761) HEMOGLOBIN (BEAKER) (test code = 9.1 GM/DL 11.2-15.7 L 410) HEMATOCRIT (BEAKER) (test code = 29.3 % 34.1-44.9 L 411) MEAN CORPUSCULAR VOLUME (BEAKER) 96 fL 79-95 H (test code = 753) MEAN CORPUSCULAR HEMOGLOBIN 29.9 pg 25.6-32.2 (BEAKER) (test code = 751) MEAN CORPUSCULAR HEMOGLOBIN CONC 31.1 GM/DL 32.2-35.5 L (BEAKER) (test code = 752) RED CELL DISTRIBUTION WIDTH 15.0 % 11.7-14.4 H (BEAKER) (test code = 412) PLATELET COUNT (BEAKER) (test 220 K/CU MM 150-450 code = 756) MEAN PLATELET VOLUME (BEAKER) 10.4 fL 9.4-12.3 (test code = 754) NUCLEATED RED BLOOD CELLS 0 /100 WBC 0-0 (BEAKER) (test code = 413) NEUTROPHILS RELATIVE PERCENT 67 % (BEAKER) (test code = 429) LYMPHOCYTES RELATIVE PERCENT 20 % (BEAKER) (test code = 430) MONOCYTES RELATIVE PERCENT 9 % (BEAKER) (test code = 431) EOSINOPHILS RELATIVE PERCENT 3 % (BEAKER) (test code = 432) BASOPHILS RELATIVE PERCENT 1 % (BEAKER) (test code = 437) NEUTROPHILS ABSOLUTE COUNT 3.29 K/ L 1.56-6.13 (BEAKER) (test code = 670) LYMPHOCYTES ABSOLUTE COUNT 0.98 K/ L 1.18-3.74 L (BEAKER) (test code = 414) MONOCYTES ABSOLUTE COUNT (BEAKER) 0.46 K/ L 0.24-0.36 H (test code = 415) EOSINOPHILS ABSOLUTE COUNT 0.17 K/ L 0.04-0.36 (BEAKER) (test code = 416) BASOPHILS ABSOLUTE COUNT (BEAKER) 0.04 K/ L 0.01-0.08 (test code = 417) IMMATURE GRANULOCYTES-RELATIVE 0.20 % 0.00-1.00 PERCENT (BEAKER) (test code = 2801) POCT-GLUCOSE [id number] 17:09:19 Test Item Value Reference Range Interpretation Comments POC-GLUCOSE METER 114 mg/dL 70-110 H : TESTED A T [facility] 6720 (BEAKER) (test code [facility], = 1538) [address]: Associate Professor Of Mathematics/Techni wendi ID = [id number] for Sally Lenz SARS-CoV2/RT-PCR (Asymptomatic ONLY)2022-08-13 15:14:31 Test Item Value Reference Interpretation Comments Range SARS-COV2/RT-PCR Negative Negative The SARS-Co V-2 (test code = target nucleic 28855-5) acids are not detected in thi s specimen. Negat gloria results do not preclude SARS-C oV-2 infection and should not be u sed as the sole bas is for patient management decisions. Nega tive results must be combined with clinical observations, patient history , and epidemiolog ical information. A false negative result may occu r if a specimen is improperly collected, transported or handled. This S ARS CoV-2 test is a rapid, real-serge e RT-PCR test intended for th e qualitative detection of nucleic acid fr om SARS-CoV-2 in a nasopharyngeal swab specimen collec salvador from individual s suspected of COVID-19 by the ir healthcare provider. JANEEN (test code = This test has been JANEEN) authorized by FDA under an EUA for use by authorized laboratories. This test is only authorized for the duration of the declaration that circumstances exist justifying the authorization of emergency use of in vitro diagnostic tests for detection and/or diagnosis of COVID-19 under Section 564(b)(1) of the Federal Food, Drug and Cosmetic Act, 21 U.S.C. 360bbb-3(b)(1), unless the authorization is terminated or revoked sooner. Fact Sheet for Healthcare Providers: https://www.Gro/Documents/Xp ert%20Xpress%20SAR S%20CoV-2/Fact%20S heets/302-3802%20S ARS-COV-2%20HEALTH CARE%20PROVIDERS%2 0FACT%20SHEET.pdf Fact Sheet for Healthcare Patients: https://www.Gro/Documents/Xp ert%20Xpress%20SAR S%20CoV-2/Fact%20S heets/302-3801%20S ARS-COV-2%20PATIEN T%20FACT%20SHEET.p df Lab Interpretation Normal (test code = 84495-5) [facility])2022-08-13 15:14:31 Test Item Value Reference Range Interpretation Comments SARS-COV2/RT-PCR Negative Negative The SARS-Co V-2 target (test code = nucleic acids a re not 8317180) detected in thi s specimen. Negative result s do not preclude SARS-C oV-2 infection and s hould not be used as the lucrecia e basis for patient managem ent decisions. Nega tive results must be combine d with clinical observ ations, patient history , and epidemiological information. A false negativ e result may occur if a spec imen is improperly anastacia ected, transported or handled. This SARS CoV-2 test is a rapid, real-time RT-PC R test intended for th e qualitative detection of nu cleic acid from SARS-CoV-2 in a nasopharyngeal swab specimen collected from individuals suspected of CO VID-19 by their healthcar e provider. This test has been authorized by FDA under an EUA for use by authorized laboratories. This test is only authorized for the duration of the declaration that circumstances exist justifying the authorization of emergency use of in vitro diagnostic tests for detection and/or diagnosis of COVID-19 under Section 564(b)(1) of the Federal Food, Drug and Cosmetic Act, 21 U.S.C. 360bbb-3(b)(1), unless the authorization is terminated or revoked sooner. Fact Sheet for Healthcare Providers: https://www.[employer].Wynlink m/Documents/Xpert%20Xpress%20SARS%20CoV-2/Fact%20Sheets/3023802%81QSTQ-QSC-9%20 HEALTHCARE%20PROVIDERS%20FACT%20SHEET.pdf Fact Sheet for Healthcare Patients: https://www.[employer]/Documents/Xpert%20Xp ress%20SARS%20CoV-2/Fact%20Sheets/3023801%20ZKFJ-GCW-2%20PATIENT%20FACT%20SHEET .pdfRAD, CHEST, 1 VIEW, NON [id number] 15:14:00Reason for exam:- >shortness of breathShould this be performed at the bedside?->Yes [facility] 1940 Sex: FFINAL REPORT RAD, CHEST, 1 VIEW, NON DEPT INDICATION: shortness of breath COMPARISON: Prior day's exam FINDINGS: Portable frontal view of the chest. IMPRESSION: Support Lines: Sternotomy wires. Loop recorder. Lungs and pleura: Moderate left joint effusion. No significant pneumothorax. Heart and mediastinum: Stable contours. Stable surgical changes. Additional findings: None. Signed:Tiera Borrero Verified Date/Time: 08/13/2022 15:14:31 Reading Location: [address] Reading Room POCT-GLUCOSE [id number] 12:46:32 Test Item Value Reference Range Interpretation Comments POC-GLUCOSE METER 124 mg/dL 70-110 H : TESTED A T [facility] 6720 (BEAKER) (test code = [facility], 1538) [address]: Associate Professor Of Mathematics/Techni wendi ID = [id number] for Co rtez, Liliana POCT-GLUCOSE [id number] 08:27:51 Test Item Value Reference Range Interpretation Comments POC-GLUCOSE METER 123 mg/dL 70-110 H : TESTED A T [facility] 6720 (BEAKER) (test code = [facility], 1538) [address]: Associate Professor Of Mathematics/Techni wendi ID = [id number] for Co rtez, Liliana [id number] 06:16:44 Test Item Value Reference Range Interpretation Comments PHOSPHORUS (BEAKER) 2.9 mg/dL 2.3-4.7 Specimen slightly (test code = 604) hemolyzed Associate Professor Of Mathematics ID - SANTI MBASIC METABOLIC [id number] 06:16:44 Test Item Value Reference Range Interpretation Comments SODIUM (BEAKER) 138 meq/L 136-145 (test code = 381) POTASSIUM 4.1 meq/L 3.5-5.1 Specimen slight ly (BEAKER) (test hemolyzed code = 379) CHLORIDE (BEAKER) 97 meq/L 98-107 L (test code = 382) CO2 (BEAKER) 33 meq/L 22-29 H (test code = 355) BLOOD UREA 19 mg/dL 7-21 NITROGEN (BEAKER) (test code = 354) CREATININE 0.92 mg/dL 0.57-1.25 Specimen slight ly (BEAKER) (test hemolyzed code = 358) GLUCOSE RANDOM 112 mg/dL 70-105 H (BEAKER) (test code = 652) CALCIUM (BEAKER) 9.2 mg/dL 8.4-10.2 (test code = 697) EGFR (BEAKER) 63 Interpretatio n of eGFR (test code = mL/min/1.73 values Stage De scription 1092) sq m Result G1 Norm al or high >=90 G2 Mildly decreased 60-89 G3a Mildl y to moderately 45-5 9 G3b Moderately to s everely 30-44 G4 Severl y decreased 15-29 G5 Kidne y failure <15Reported eGF R is based on the CKD-EPI 2020 equation that d oes not use a race coefficientEsti mated GFR is not as accur ate as Creatinine Susanne kevon in predicting glom erular filtration rate . Estimated GFR is not appl icable for dialysis patien ts Associate Professor Of Mathematics ID - SANTI [id number] 06:16:43 Test Item Value Reference Range Interpretation Comments MAGNESIUM (BEAKER) 1.9 mg/dL 1.6-2.6 Specimen slightly (test code = 627) hemolyzed Associate Professor Of Mathematics ID - SANTI MCBC W/PLT COUNT & AUTO [id number] 05:20:10 Test Item Value Reference Range Interpretation Comments WHITE BLOOD CELL COUNT (BEAKER) 5.5 K/ L 3.5-10.5 (test code = 775) RED BLOOD CELL COUNT (BEAKER) 3.04 M/ L 3.93-5.22 L (test code = 761) HEMOGLOBIN (BEAKER) (test code = 9.1 GM/DL 11.2-15.7 L 410) HEMATOCRIT (BEAKER) (test code = 29.6 % 34.1-44.9 L 411) MEAN CORPUSCULAR VOLUME (BEAKER) 97 fL 79-95 H (test code = 753) MEAN CORPUSCULAR HEMOGLOBIN 29.9 pg 25.6-32.2 (BEAKER) (test code = 751) MEAN CORPUSCULAR HEMOGLOBIN CONC 30.7 GM/DL 32.2-35.5 L (BEAKER) (test code = 752) RED CELL DISTRIBUTION WIDTH 15.2 % 11.7-14.4 H (BEAKER) (test code = 412) PLATELET COUNT (BEAKER) (test 210 K/CU MM 150-450 code = 756) MEAN PLATELET VOLUME (BEAKER) 10.7 fL 9.4-12.3 (test code = 754) NUCLEATED RED BLOOD CELLS 0 /100 WBC 0-0 (BEAKER) (test code = 413) NEUTROPHILS RELATIVE PERCENT 69 % (BEAKER) (test code = 429) LYMPHOCYTES RELATIVE PERCENT 19 % (BEAKER) (test code = 430) MONOCYTES RELATIVE PERCENT 9 % (BEAKER) (test code = 431) EOSINOPHILS RELATIVE PERCENT 3 % (BEAKER) (test code = 432) BASOPHILS RELATIVE PERCENT 1 % (BEAKER) (test code = 437) NEUTROPHILS ABSOLUTE COUNT 3.77 K/ L 1.56-6.13 (BEAKER) (test code = 670) LYMPHOCYTES ABSOLUTE COUNT 1.01 K/ L 1.18-3.74 L (BEAKER) (test code = 414) MONOCYTES ABSOLUTE COUNT (BEAKER) 0.47 K/ L 0.24-0.36 H (test code = 415) EOSINOPHILS ABSOLUTE COUNT 0.17 K/ L 0.04-0.36 (BEAKER) (test code = 416) BASOPHILS ABSOLUTE COUNT (BEAKER) 0.03 K/ L 0.01-0.08 (test code = 417) IMMATURE GRANULOCYTES-RELATIVE 0.40 % 0.00-1.00 PERCENT (BEAKER) (test code = 2801) POCT-GLUCOSE [id number] 21:18:55 Test Item Value Reference Range Interpretation Comments POC-GLUCOSE METER 129 mg/dL 70-110 H : TESTED A T [facility] 6720 (BEAKER) (test code = [facility] [place], 1538) [address]: Associate Professor Of Mathematics/Techni wendi ID = [id number] for Sabrina Contreras POCT-GLUCOSE [id number] 17:52:55 Test Item Value Reference Range Interpretation Comments POC-GLUCOSE METER 109 mg/dL 70-110 : TESTED A T [facility] 6720 (BEAKER) (test code = [facility] [place], 1538) [address]: Associate Professor Of Mathematics/Techni wendi ID = [id number] for Markel CARSON POCT-GLUCOSE [id number] 12:50:12 Test Item Value Reference Range Interpretation Comments POC-GLUCOSE METER 116 mg/dL 70-110 H : TESTED A T [facility] 6720 (BEAKER) (test code = [facility], 1538) [address]: Associate Professor Of Mathematics/Techni wendi ID = [id number] for Markel CARSON RAD, CHEST, 1 VIEW, NON [id number] 09:11:00Reason for exam:- >atelectasisShould this be performed at the bedside?->Yes [facility] : 1940 Sex: FFINAL REPORT RAD, CHEST, 1 VIEW, NON DEPT INDICATION: atelectasis COMPARISON: Prior day's exam FINDINGS: Portable frontal view of the chest. IMPRESSION: Support Lines: Overlying leads/monitors. Loop recorder. Atrial clip. Lungs and pleura: Retrocardiac opacity representing singly miracle combination airspace disease, atelectasis and/or effusion. No significant pneumothorax. Heart andmediastinum: Stable contours. Stable surgical changes. Additional findings: None. Signed: Gissell, Tiera MDReport Verified Date/Time: 08/12/2022 09:11:12 Reading Location: [address] Reading Room -GLUCOSE [id number] 08:23:44 Test Item Value Reference Range Interpretation Comments POC-GLUCOSE METER 106 mg/dL 70-110 : TESTED A T [facility] 6720 (BEAKER) (test code = [facility] [place], 1538) [address]: Associate Professor Of Mathematics/Techni wendi ID = [id number] for Markel CARSON [id number] 06:10:38 Test Item Value Reference Range Interpretation Comments PHOSPHORUS (BEAKER) (test code = 2.8 mg/dL 2.3-4.7 604) Associate Professor Of Mathematics ID - SANTI MBASIC METABOLIC [id number] 06:10:37 Test Item Value Reference Range Interpretation Comments SODIUM (BEAKER) 139 meq/L 136-145 (test code = 381) POTASSIUM 4.0 meq/L 3.5-5.1 (BEAKER) (test code = 379) CHLORIDE (BEAKER) 97 meq/L 98-107 L (test code = 382) CO2 (BEAKER) 36 meq/L 22-29 H (test code = 355) BLOOD UREA 24 mg/dL 7-21 H NITROGEN (BEAKER) (test code = 354) CREATININE 1.12 mg/dL 0.57-1.25 (BEAKER) (test code = 358) GLUCOSE RANDOM 98 mg/dL 70-105 (BEAKER) (test code = 652) CALCIUM (BEAKER) 9.0 mg/dL 8.4-10.2 (test code = 697) EGFR (BEAKER) 49 Interpretati on of eGFR (test code = mL/min/1.73 values Stage De scription 1092) sq m Result G1 Cecilia l or high >=90 G2 Mildly decreased 60-89 G3a Mildl y to moderately 45-5 9 G3b Moderately to s everely 30-44 G4 Severl y decreased 15-29 G5 Kidney failure <15Reported eGF R is based on the CKD-EPI 2020 equation that d oes not use a race coefficientEsti mated GFR is not as accur ate as Creatinine Susanne lund in predicting glom erular filtration rate . Estimated GFR is not appl icable for dialysis patien ts Associate Professor Of Mathematics ID - SANTI [id number] 06:10:37 Test Item Value Reference Range Interpretation Comments MAGNESIUM (BEAKER) (test code = 1.9 mg/dL 1.6-2.6 627) Associate Professor Of Mathematics ID - SANTI MCBC W/PLT COUNT & AUTO [id number] 05:24:26 Test Item Value Reference Range Interpretation Comments WHITE BLOOD CELL COUNT (BEAKER) 7.3 K/ L 3.5-10.5 (test code = 775) RED BLOOD CELL COUNT (BEAKER) 2.80 M/ L 3.93-5.22 L (test code = 761) HEMOGLOBIN (BEAKER) (test code = 8.6 GM/DL 11.2-15.7 L 410) HEMATOCRIT (BEAKER) (test code = 27.8 % 34.1-44.9 L 411) MEAN CORPUSCULAR VOLUME (BEAKER) 99 fL 79-95 H (test code = 753) MEAN CORPUSCULAR HEMOGLOBIN 30.7 pg 25.6-32.2 (BEAKER) (test code = 751) MEAN CORPUSCULAR HEMOGLOBIN CONC 30.9 GM/DL 32.2-35.5 L (BEAKER) (test code = 752) RED CELL DISTRIBUTION WIDTH 15.2 % 11.7-14.4 H (BEAKER) (test code = 412) PLATELET COUNT (BEAKER) (test 201 K/CU MM 150-450 code = 756) MEAN PLATELET VOLUME (BEAKER) 10.5 fL 9.4-12.3 (test code = 754) NUCLEATED RED BLOOD CELLS 0 /100 WBC 0-0 (BEAKER) (test code = 413) NEUTROPHILS RELATIVE PERCENT 77 % (BEAKER) (test code = 429) LYMPHOCYTES RELATIVE PERCENT 13 % (BEAKER) (test code = 430) MONOCYTES RELATIVE PERCENT 8 % (BEAKER) (test code = 431) EOSINOPHILS RELATIVE PERCENT 2 % (BEAKER) (test code = 432) BASOPHILS RELATIVE PERCENT 1 % (BEAKER) (test code = 437) NEUTROPHILS ABSOLUTE COUNT 5.62 K/ L 1.56-6.13 (BEAKER) (test code = 670) LYMPHOCYTES ABSOLUTE COUNT 0.94 K/ L 1.18-3.74 L (BEAKER) (test code = 414) MONOCYTES ABSOLUTE COUNT (BEAKER) 0.59 K/ L 0.24-0.36 H (test code = 415) EOSINOPHILS ABSOLUTE COUNT 0.14 K/ L 0.04-0.36 (BEAKER) (test code = 416) BASOPHILS ABSOLUTE COUNT (BEAKER) 0.04 K/ L 0.01-0.08 (test code = 417) IMMATURE GRANULOCYTES-RELATIVE 0.10 % 0.00-1.00 PERCENT (BEAKER) (test code = 2801) POCT-GLUCOSE [id number] 20:49:08 Test Item Value Reference Range Interpretation Comments POC-GLUCOSE METER 145 mg/dL 70-110 H : TESTED A T [facility] 6720 (BEAKER) (test code = [facility], 153) [address]: Associate Professor Of Mathematics/Techni wendi ID = [id number] for RO CARLITOS, MAURISIO POCT-GLUCOSE [id number] 17:25:01 Test Item Value Reference Range Interpretation Comments POC-GLUCOSE METER 99 mg/dL 70-110 : TESTED A T [facility] 6720 (BEAKER) (test code = [facility], 153) [address]: Associate Professor Of Mathematics/Techni wendi ID = [id number] for David ez, Liliana POCT-GLUCOSE [id number] 12:43:21 Test Item Value Reference Range Interpretation Comments POC-GLUCOSE METER 124 mg/dL 70-110 H : TESTED A T [facility] 6720 (BEAKER) (test code = [facility], 1538) [address]: Associate Professor Of Mathematics/Techni wendi ID = [id number] for Co rtez, Liliana POCT-GLUCOSE [id number] 08:37:16 Test Item Value Reference Range Interpretation Comments POC-GLUCOSE METER 112 mg/dL 70-110 H : TESTED A T [facility] 6720 (BEAKER) (test code = [facility], 153) [address]: Associate Professor Of Mathematics/Techni wendi ID = [id number] for Co rtez, [place] [id number] 05:39:40 Test Item Value Reference Range Interpretation Comments MAGNESIUM (BEAKER) (test code = 2.0 mg/dL 1.6-2.6 627) Associate Professor Of Mathematics ID - SANTI [id number] 05:39:40 Test Item Value Reference Range Interpretation Comments PHOSPHORUS (BEAKER) (test code = 3.8 mg/dL 2.3-4.7 604) Associate Professor Of Mathematics ID - SANTI MBASIC METABOLIC [id number] 05:39:39 Test Item Value Reference Range Interpretation Comments SODIUM (BEAKER) 140 meq/L 136-145 (test code = 381) POTASSIUM 4.0 meq/L 3.5-5.1 (BEAKER) (test code = 379) CHLORIDE (BEAKER) 97 meq/L 98-107 L (test code = 382) CO2 (BEAKER) 36 meq/L 22-29 H (test code = 355) BLOOD UREA 24 mg/dL 7-21 H NITROGEN (BEAKER) (test code = 354) CREATININE 1.15 mg/dL 0.57-1.25 (BEAKER) (test code = 358) GLUCOSE RANDOM 102 mg/dL 70-105 (BEAKER) (test code = 652) CALCIUM (BEAKER) 8.9 mg/dL 8.4-10.2 (test code = 697) EGFR (BEAKER) 48 Interpretatio n of eGFR (test code = mL/min/1.73 values Stage De scription 1092) sq m Result G1 Cecilia l or high >=90 G2 Mildly decreased 60-89 G3a Mildl y to moderately 45-5 9 G3b Moderately to s everely 30-44 G4 Severl y decreased 15-29 G5 Kidney failure <15Reported eGF R is based on the CKD-EPI 2020 equation that d oes not use a race coefficientEsti mated GFR is not as accur ate as Creatinine Susanne kevon in predicting glom erular filtration rate . Estimated GFR is not appl icable for dialysis patien ts Associate Professor Of Mathematics ID - SANTI MCBC W/PLT COUNT & AUTO [id number] 04:55:17 Test Item Value Reference Range Interpretation Comments WHITE BLOOD CELL COUNT (BEAKER) 6.9 K/ L 3.5-10.5 (test code = 775) RED BLOOD CELL COUNT (BEAKER) 2.77 M/ L 3.93-5.22 L (test code = 761) HEMOGLOBIN (BEAKER) (test code = 8.3 GM/DL 11.2-15.7 L 410) HEMATOCRIT (BEAKER) (test code = 27.9 % 34.1-44.9 L 411) MEAN CORPUSCULAR VOLUME (BEAKER) 101 fL 79-95 H (test code = 753) MEAN CORPUSCULAR HEMOGLOBIN 30.0 pg 25.6-32.2 (BEAKER) (test code = 751) MEAN CORPUSCULAR HEMOGLOBIN CONC 29.7 GM/DL 32.2-35.5 L (BEAKER) (test code = 752) RED CELL DISTRIBUTION WIDTH 15.6 % 11.7-14.4 H (BEAKER) (test code = 412) PLATELET COUNT (BEAKER) (test 201 K/CU MM 150-450 code = 756) MEAN PLATELET VOLUME (BEAKER) 10.3 fL 9.4-12.3 (test code = 754) NUCLEATED RED BLOOD CELLS 0 /100 WBC 0-0 (BEAKER) (test code = 413) NEUTROPHILS RELATIVE PERCENT 76 % (BEAKER) (test code = 429) LYMPHOCYTES RELATIVE PERCENT 13 % (BEAKER) (test code = 430) MONOCYTES RELATIVE PERCENT 8 % (BEAKER) (test code = 431) EOSINOPHILS RELATIVE PERCENT 2 % (BEAKER) (test code = 432) BASOPHILS RELATIVE PERCENT 0 % (BEAKER) (test code = 437) NEUTROPHILS ABSOLUTE COUNT 5.24 K/ L 1.56-6.13 (BEAKER) (test code = 670) LYMPHOCYTES ABSOLUTE COUNT 0.90 K/ L 1.18-3.74 L (BEAKER) (test code = 414) MONOCYTES ABSOLUTE COUNT (BEAKER) 0.54 K/ L 0.24-0.36 H (test code = 415) EOSINOPHILS ABSOLUTE COUNT 0.14 K/ L 0.04-0.36 (BEAKER) (test code = 416) BASOPHILS ABSOLUTE COUNT (BEAKER) 0.03 K/ L 0.01-0.08 (test code = 417) IMMATURE GRANULOCYTES-RELATIVE 0.30 % 0.00-1.00 PERCENT (BEAKER) (test code = 2801) POCT-GLUCOSE [id number] 20:42:35 Test Item Value Reference Range Interpretation Comments POC-GLUCOSE METER 128 mg/dL 70-110 H : TESTED A T [facility] (BEAKER) (test code = [place], 1538) [id number]: Associate Professor Of Mathematics/Techni wendi ID = [id number] for RO DEIDRE URBINAO POCT-GLUCOSE [id number] 18:44:36 Test Item Value Reference Range Interpretation Comments POC-GLUCOSE METER 108 mg/dL 70-110 : TESTED A T [facility] (BEAKER) (test code = [place], 1538) [id number]: Associate Professor Of Mathematics/Techni wendi ID = [id number] for Co Liliana gibbs SARS-COV2/RT-PCR ([facility])2022-08-10 16:05:16 Test Item Value Reference Range Interpretation Comments SARS-COV2/RT-PCR Negative Negative The SARS-Co V-2 target (test code = nucleic acids a re not [id number]) detected in thi s specimen. Negative result s do not preclude SARS-C oV-2 infection and s hould not be used as the lucrecia e basis for patient managem ent decisions. Nega tive results must be combine d with clinical observ ations, patient history , and epidemiological information. A false negativ e result may occur if a spec imen is improperly anastacia ected, transported or handled. This SARS CoV-2 test is a rapid, real-time RT-PC R test intended for th e qualitative detection of nu cleic acid from SARS-CoV-2 in a nasopharyngeal swab specimen collected from individuals suspected of CO VID-19 by their healthcar e provider. This test has been authorized by FDA under an EUA for use by authorized laboratories. This test is only authorized for the duration of the declaration that circumstances exist justifying the authorization of emergency use of in vitro diagnostic tests for detection and/or diagnosis of COVID-19 under Section 564(b)(1) of the Federal Food, Drug and Cosmetic Act, 21 U.S.C. 360bbb-3(b)(1), unless the authorization is terminated or revoked sooner. Fact Sheet for Healthcare Providers: https://www.[employer]/Documents/Xpert%20Xpress%20SARS%20CoV-2/Fact%20Sheets/302-9496%91CKYC-OYV-0%20 HEALTHCARE%20PROVIDERS%20FACT%20SHEET.pdf Fact Sheet for Healthcare Patients: https://www.[employer]/Documents/Xpert%20Xp ress%20SARS%20CoV-2/Fact%20Sheets/302-3801%82UTGR-JNX-4%20PATIENT%20FACT%20SHEET .pdfBLOOD GAS, [id number] 14:28:39 Test Item Value Reference Range Interpretation Comments PH VENOUS (BEAKER) (test code = 7.43 7.32-7.42 H 701) PCO2 VENOUS (BEAKER) (test code = 60 mm Hg 41-51 H 755) PO2 VENOUS (BEAKER) (test code = 34 mm Hg 25-40 702) O2 SATURATION VENOUS (BEAKER) 66.2 % 40.0-70.0 (test code = 703) HCO3 VENOUS (BEAKER) (test code = 39 mmol/L 21-29 H 705) BASE EXCESS VENOUS (BEAKER) (test 12.9 mmol/L -2.0-3.0 H code = 704) PATIENT TEMPERATURE (BEAKER) 36.8 (test code = 1818) POCT-GLUCOSE [id number] 12:22:25 Test Item Value Reference Range Interpretation Comments POC-GLUCOSE METER 158 mg/dL 70-110 H : TESTED A T [facility] 6720 (BEAKER) (test code [facility], = 1538) 26027: Associate Professor Of Mathematics/Techni wendi ID = [id number] for Sally Lenz POCT-GLUCOSE [id number] 08:41:09 Test Item Value Reference Range Interpretation Comments POC-GLUCOSE METER 110 mg/dL 70-110 : TESTED A T [facility] 6720 (BEAKER) (test code [facility], = 1538) [id number]: Associate Professor Of Mathematics/Techni wendi ID = [id number] for Sally Lenz BASIC METABOLIC [id number] 06:36:38 Test Item Value Reference Range Interpretation Comments SODIUM (BEAKER) 141 meq/L 136-145 (test code = 381) POTASSIUM 4.0 meq/L 3.5-5.1 (BEAKER) (test code = 379) CHLORIDE (BEAKER) 98 meq/L 98-107 (test code = 382) CO2 (BEAKER) 35 meq/L 22-29 H (test code = 355) BLOOD UREA 18 mg/dL 7-21 NITROGEN (BEAKER) (test code = 354) CREATININE 0.90 mg/dL 0.57-1.25 (BEAKER) (test code = 358) GLUCOSE RANDOM 100 mg/dL 70-105 (BEAKER) (test code = 652) CALCIUM (BEAKER) 8.9 mg/dL 8.4-10.2 (test code = 697) EGFR (BEAKER) 64 Interpretatio n of eGFR (test code = mL/min/1.73 values Stage De scription 1092) sq m Result G1 Cecilia l or high >=90 G2 Mildly decreased 60-89 G3a Mildl y to moderately 45-5 9 G3b Moderately to s everely 30-44 G4 Severl y decreased 15-29 G5 Kidney failure <15Reported eGF R is based on the CKD-EPI 2020 equation that d oes not use a race coefficientEsti mated GFR is not as accur ate as Creatinine Susanne kevon in predicting glom erular filtration rate . Estimated GFR is not appl icable for dialysis patien ts Associate Professor Of Mathematics ID - SANTI [id number] 06:36:38 Test Item Value Reference Range Interpretation Comments MAGNESIUM (BEAKER) (test code = 1.9 mg/dL 1.6-2.6 627) Associate Professor Of Mathematics ID - SANTI [id number] 06:36:38 Test Item Value Reference Range Interpretation Comments PHOSPHORUS (BEAKER) (test code = 4.1 mg/dL 2.3-4.7 604) Associate Professor Of Mathematics ID - SANTI MCBC W/PLT COUNT & AUTO [id number] 06:04:40 Test Item Value Reference Range Interpretation Comments WHITE BLOOD CELL COUNT (BEAKER) 8.1 K/ L 3.5-10.5 (test code = 775) RED BLOOD CELL COUNT (BEAKER) 2.82 M/ L 3.93-5.22 L (test code = 761) HEMOGLOBIN (BEAKER) (test code = 8.5 GM/DL 11.2-15.7 L 410) HEMATOCRIT (BEAKER) (test code = 27.6 % 34.1-44.9 L 411) MEAN CORPUSCULAR VOLUME (BEAKER) 98 fL 79-95 H (test code = 753) MEAN CORPUSCULAR HEMOGLOBIN 30.1 pg 25.6-32.2 (BEAKER) (test code = 751) MEAN CORPUSCULAR HEMOGLOBIN CONC 30.8 GM/DL 32.2-35.5 L (BEAKER) (test code = 752) RED CELL DISTRIBUTION WIDTH 15.8 % 11.7-14.4 H (BEAKER) (test code = 412) PLATELET COUNT (BEAKER) (test 203 K/CU MM 150-450 code = 756) MEAN PLATELET VOLUME (BEAKER) 10.7 fL 9.4-12.3 (test code = 754) NUCLEATED RED BLOOD CELLS 0 /100 WBC 0-0 (BEAKER) (test code = 413) NEUTROPHILS RELATIVE PERCENT 79 % (BEAKER) (test code = 429) LYMPHOCYTES RELATIVE PERCENT 11 % (BEAKER) (test code = 430) MONOCYTES RELATIVE PERCENT 8 % (BEAKER) (test code = 431) EOSINOPHILS RELATIVE PERCENT 1 % (BEAKER) (test code = 432) BASOPHILS RELATIVE PERCENT 0 % (BEAKER) (test code = 437) NEUTROPHILS ABSOLUTE COUNT 6.42 K/ L 1.56-6.13 H (BEAKER) (test code = 670) LYMPHOCYTES ABSOLUTE COUNT 0.91 K/ L 1.18-3.74 L (BEAKER) (test code = 414) MONOCYTES ABSOLUTE COUNT (BEAKER) 0.64 K/ L 0.24-0.36 H (test code = 415) EOSINOPHILS ABSOLUTE COUNT 0.10 K/ L 0.04-0.36 (BEAKER) (test code = 416) BASOPHILS ABSOLUTE COUNT (BEAKER) 0.03 K/ L 0.01-0.08 (test code = 417) IMMATURE GRANULOCYTES-RELATIVE 0.40 % 0.00-1.00 PERCENT (BEAKER) (test code = 2801) POCT-GLUCOSE [id number] 21:26:49 Test Item Value Reference Range Interpretation Comments POC-GLUCOSE METER 114 mg/dL 70-110 H : TESTED A T [facility] 6720 (BEAKER) (test code = [place], 1538) 58691: Associate Professor Of Mathematics/Techni wendi ID = [id number] for ELKE FOWLER POCT-GLUCOSE [id number] 19:42:14 Test Item Value Reference Range Interpretation Comments POC-GLUCOSE METER 137 mg/dL 70-110 H : TESTED A T [facility] 6720 (BEAKER) (test code = [facility], 1538) 32038: Associate Professor Of Mathematics/Techni wendi ID = [id number] for Markel CARSON POCT-GLUCOSE [id number] 19:41:22 Test Item Value Reference Range Interpretation Comments POC-GLUCOSE METER 123 mg/dL 70-110 H : TESTED A T [facility] 6720 (BEAKER) (test code = [facility], 1538) 21747: Associate Professor Of Mathematics/Techni wendi ID = [id number] for Markel CARSON POCT-GLUCOSE [id number] 16:56:38 Test Item Value Reference Range Interpretation Comments POC-GLUCOSE METER 117 mg/dL 70-110 H : TESTED A T [facility] 6720 (BEAKER) (test code = [facility], 1538) 35260: Associate Professor Of Mathematics/Techni wendi ID = [id number] for Markel CARSON [id number] 07:18:09 Test Item Value Reference Range Interpretation Comments MAGNESIUM (BEAKER) (test code = 1.9 mg/dL 1.6-2.6 627) Associate Professor Of Mathematics ID - PIAYA [id number] 07:18:09 Test Item Value Reference Range Interpretation Comments PHOSPHORUS (BEAKER) (test code = 2.9 mg/dL 2.3-4.7 604) Associate Professor Of Mathematics ID - PIAYA LBASIC METABOLIC [id number] 07:18:08 Test Item Value Reference Range Interpretation Comments SODIUM (BEAKER) 139 meq/L 136-145 (test code = 381) POTASSIUM 4.3 meq/L 3.5-5.1 (BEAKER) (test code = 379) CHLORIDE (BEAKER) 98 meq/L 98-107 (test code = 382) CO2 (BEAKER) 32 meq/L 22-29 H (test code = 355) BLOOD UREA 16 mg/dL 7-21 NITROGEN (BEAKER) (test code = 354) CREATININE 0.77 mg/dL 0.57-1.25 (BEAKER) (test code = 358) GLUCOSE RANDOM 98 mg/dL 70-105 (BEAKER) (test code = 652) CALCIUM (BEAKER) 9.0 mg/dL 8.4-10.2 (test code = 697) EGFR (BEAKER) 77 Interpretatio n of eGFR (test code = mL/min/1.73 values Stage De scription 1092) sq m Result G1 Cecilia l or high >=90 G2 Mildly decreased 60-89 G3a Mildl y to moderately 45-5 9 G3b Moderately to s everely 30-44 G4 Severl y decreased 15-29 G5 Kidney failure <15Reported eGF R is based on the CKD-EPI 2020 equation that d oes not use a race coefficientEsti mated GFR is not as accur ate as Creatinine Susanne kevon in predicting glom erular filtration rate . Estimated GFR is not appl icable for dialysis patien ts Associate Professor Of Mathematics ID - PIAYA LCBC W/PLT COUNT & AUTO [id number] 07:15:08 Test Item Value Reference Range Interpretation Comments WHITE BLOOD CELL COUNT (BEAKER) 9.5 K/ L 3.5-10.5 (test code = 775) RED BLOOD CELL COUNT (BEAKER) 2.96 M/ L 3.93-5.22 L (test code = 761) HEMOGLOBIN (BEAKER) (test code = 8.9 GM/DL 11.2-15.7 L 410) HEMATOCRIT (BEAKER) (test code = 29.0 % 34.1-44.9 L 411) MEAN CORPUSCULAR VOLUME (BEAKER) 98 fL 79-95 H (test code = 753) MEAN CORPUSCULAR HEMOGLOBIN 30.1 pg 25.6-32.2 (BEAKER) (test code = 751) MEAN CORPUSCULAR HEMOGLOBIN CONC 30.7 GM/DL 32.2-35.5 L (BEAKER) (test code = 752) RED CELL DISTRIBUTION WIDTH 15.8 % 11.7-14.4 H (BEAKER) (test code = 412) PLATELET COUNT (BEAKER) (test 186 K/CU MM 150-450 code = 756) MEAN PLATELET VOLUME (BEAKER) 10.6 fL 9.4-12.3 (test code = 754) NUCLEATED RED BLOOD CELLS 0 /100 WBC 0-0 (BEAKER) (test code = 413) NEUTROPHILS RELATIVE PERCENT 82 % (BEAKER) (test code = 429) LYMPHOCYTES RELATIVE PERCENT 10 % (BEAKER) (test code = 430) MONOCYTES RELATIVE PERCENT 7 % (BEAKER) (test code = 431) EOSINOPHILS RELATIVE PERCENT 1 % (BEAKER) (test code = 432) BASOPHILS RELATIVE PERCENT 0 % (BEAKER) (test code = 437) NEUTROPHILS ABSOLUTE COUNT 7.72 K/ L 1.56-6.13 H (BEAKER) (test code = 670) LYMPHOCYTES ABSOLUTE COUNT 0.95 K/ L 1.18-3.74 L (BEAKER) (test code = 414) MONOCYTES ABSOLUTE COUNT (BEAKER) 0.67 K/ L 0.24-0.36 H (test code = 415) EOSINOPHILS ABSOLUTE COUNT 0.07 K/ L 0.04-0.36 (BEAKER) (test code = 416) BASOPHILS ABSOLUTE COUNT (BEAKER) 0.03 K/ L 0.01-0.08 (test code = 417) IMMATURE GRANULOCYTES-RELATIVE 0.30 % 0.00-1.00 PERCENT (BEAKER) (test code = 2801) POCT-GLUCOSE [id number] 07:01:15 Test Item Value Reference Range Interpretation Comments POC-GLUCOSE METER 133 mg/dL 70-110 H : TESTED A T [facility] 6720 (BEAKER) (test code = [facility], [facility]) 35381: Associate Professor Of Mathematics/Techni wendi ID = [id number] for JESSY-SHEBA, S HIKARA POCT-GLUCOSE [id number] 20:57:54 Test Item Value Reference Range Interpretation Comments POC-GLUCOSE METER 111 mg/dL 70-110 H : TESTED A T [facility] 6720 (BEAKER) (test code = [facility], [facility]) 15974: Associate Professor Of Mathematics/Techni wendi ID = [id number] for ELKE FOWLER POCT-GLUCOSE [id number] 17:31:55 Test Item Value Reference Range Interpretation Comments POC-GLUCOSE METER 112 mg/dL 70-110 H : TESTED A T [facility] 6720 (BEAKER) (test code = [facility], [facility]8) 36696: Associate Professor Of Mathematics/Techni wendi ID = [id number] for JESSY-SHEBA, S HIKARA POCT-GLUCOSE [id number] 13:30:31 Test Item Value Reference Range Interpretation Comments POC-GLUCOSE METER 132 mg/dL 70-110 H : TESTED A T [facility] 6720 (BEAKER) (test code = [facility], 1538) 46184: Associate Professor Of Mathematics/Techni wedni ID = [id number] for Markel CARSON [id number] 06:18:42 Test Item Value Reference Range Interpretation Comments PHOSPHORUS (BEAKER) (test code = 2.7 mg/dL 2.3-4.7 604) Associate Professor Of Mathematics ID - MARIO LBASIC METABOLIC [id number] 06:18:41 Test Item Value Reference Range Interpretation Comments SODIUM (BEAKER) 141 meq/L 136-145 (test code = 381) POTASSIUM 3.7 meq/L 3.5-5.1 (BEAKER) (test code = 379) CHLORIDE (BEAKER) 99 meq/L 98-107 (test code = 382) CO2 (BEAKER) 35 meq/L 22-29 H (test code = 355) BLOOD UREA 17 mg/dL 7-21 NITROGEN (BEAKER) (test code = 354) CREATININE 0.78 mg/dL 0.57-1.25 (BEAKER) (test code = 358) GLUCOSE RANDOM 109 mg/dL 70-105 H (BEAKER) (test code = 652) CALCIUM (BEAKER) 8.9 mg/dL 8.4-10.2 (test code = 697) EGFR (BEAKER) 76 Interpretatio n of eGFR (test code = mL/min/1.73 values Stage De scription 1092) sq m Result G1 Cecilia l or high >=90 G2 Mildly decreased 60-89 G3a Mildl y to moderately 45-5 9 G3b Moderately to s everely 30-44 G4 Severl y decreased 15-29 G5 Kidney failure <15Reported eGF R is based on the CKD-EPI 1 equation that d oes not use a race coefficientEsti mated GFR is not as accur ate as Creatinine Susanne lund in predicting glom erular filtration rate . Estimated GFR is not appl icable for dialysis patien ts Associate Professor Of Mathematics ID - MARIO [id number] 06:18:41 Test Item Value Reference Range Interpretation Comments MAGNESIUM (BEAKER) (test code = 1.9 mg/dL 1.6-2.6 627) Associate Professor Of Mathematics ID - MARIO LCBC W/PLT COUNT & AUTO [id number] 05:53:27 Test Item Value Reference Range Interpretation Comments WHITE BLOOD CELL COUNT (BEAKER) 9.1 K/ L 3.5-10.5 (test code = 775) RED BLOOD CELL COUNT (BEAKER) 2.81 M/ L 3.93-5.22 L (test code = 761) HEMOGLOBIN (BEAKER) (test code = 8.4 GM/DL 11.2-15.7 L 410) HEMATOCRIT (BEAKER) (test code = 27.7 % 34.1-44.9 L 411) MEAN CORPUSCULAR VOLUME (BEAKER) 99 fL 79-95 H (test code = 753) MEAN CORPUSCULAR HEMOGLOBIN 29.9 pg 25.6-32.2 (BEAKER) (test code = 751) MEAN CORPUSCULAR HEMOGLOBIN CONC 30.3 GM/DL 32.2-35.5 L (BEAKER) (test code = 752) RED CELL DISTRIBUTION WIDTH 15.9 % 11.7-14.4 H (BEAKER) (test code = 412) PLATELET COUNT (BEAKER) (test 178 K/CU MM 150-450 code = 756) MEAN PLATELET VOLUME (BEAKER) 10.6 fL 9.4-12.3 (test code = 754) NUCLEATED RED BLOOD CELLS 0 /100 WBC 0-0 (BEAKER) (test code = 413) NEUTROPHILS RELATIVE PERCENT 80 % (BEAKER) (test code = 429) LYMPHOCYTES RELATIVE PERCENT 10 % (BEAKER) (test code = 430) MONOCYTES RELATIVE PERCENT 8 % (BEAKER) (test code = 431) EOSINOPHILS RELATIVE PERCENT 1 % (BEAKER) (test code = 432) BASOPHILS RELATIVE PERCENT 0 % (BEAKER) (test code = 437) NEUTROPHILS ABSOLUTE COUNT 7.29 K/ L 1.56-6.13 H (BEAKER) (test code = 670) LYMPHOCYTES ABSOLUTE COUNT 0.95 K/ L 1.18-3.74 L (BEAKER) (test code = 414) MONOCYTES ABSOLUTE COUNT (BEAKER) 0.76 K/ L 0.24-0.36 H (test code = 415) EOSINOPHILS ABSOLUTE COUNT 0.06 K/ L 0.04-0.36 (BEAKER) (test code = 416) BASOPHILS ABSOLUTE COUNT (BEAKER) 0.03 K/ L 0.01-0.08 (test code = 417) IMMATURE GRANULOCYTES-RELATIVE 0.50 % 0.00-1.00 PERCENT (BEAKER) (test code = 2801) POCT-GLUCOSE [id number] 17:36:12 Test Item Value Reference Range Interpretation Comments POC-GLUCOSE METER 123 mg/dL 70-110 H : TESTED A T [facility] 6720 (BEAKER) (test code [facility], = 1538) 97141: Associate Professor Of Mathematics/Techni wendi ID = [id number] for Sally Lenz POCT-GLUCOSE [id number] 13:03:50 Test Item Value Reference Range Interpretation Comments POC-GLUCOSE METER 136 mg/dL 70-110 H : TESTED A T [facility] 6720 (BEAKER) (test code = [facility], 1538) 68052: Associate Professor Of Mathematics/Techni wendi ID = [id number] for Anup alcarazmonicaJanuary 2D Echo W/Doppler(CW/PW/Color)2022-08-07 11:20:48Ejection FractionSLE ECHO [facility] [id number] 08:52:56 Test Item Value Reference Range Interpretation Comments POC-GLUCOSE METER 138 mg/dL 70-110 H : TESTED A T [facility] 6720 (BEAKER) (test code = [facility], 1538) 00420: Associate Professor Of Mathematics/Techni wendi ID = [id number] for NAINA HARMAN BASIC METABOLIC [id number] 05:03:05 Test Item Value Reference Range Interpretation Comments SODIUM (BEAKER) 143 meq/L 136-145 (test code = 381) POTASSIUM 3.5 meq/L 3.5-5.1 (BEAKER) (test code = 379) CHLORIDE (BEAKER) 97 meq/L 98-107 L (test code = 382) CO2 (BEAKER) 37 meq/L 22-29 H (test code = 355) BLOOD UREA 25 mg/dL 7-21 H NITROGEN (BEAKER) (test code = 354) CREATININE 0.91 mg/dL 0.57-1.25 (BEAKER) (test code = 358) GLUCOSE RANDOM 108 mg/dL 70-105 H (BEAKER) (test code = 652) CALCIUM (BEAKER) 8.9 mg/dL 8.4-10.2 (test code = 697) EGFR (BEAKER) 63 Interpretatio n of eGFR (test code = mL/min/1.73 values Stage De scription 1092) sq m Result G1 Cecilia l or high >=90 G2 Mildly decreased 60-89 G3a Mildl y to moderately 45-5 9 G3b Moderately to s everely 30-44 G4 Severl y decreased 15-29 G5 Kidney failure <15Reported eGF R is based on the CKD-EPI 2020 equation that d oes not use a race coefficientEsti mated GFR is not as accur ate as Creatinine Susanne kevon in predicting glom erular filtration rate . Estimated GFR is not appl icable for dialysis patien ts Associate Professor Of Mathematics ID - MARIO [id number] 05:03:05 Test Item Value Reference Range Interpretation Comments MAGNESIUM (BEAKER) (test code = 1.9 mg/dL 1.6-2.6 627) Associate Professor Of Mathematics ID - MARIO [id number] 05:03:05 Test Item Value Reference Range Interpretation Comments PHOSPHORUS (BEAKER) (test code = 3.1 mg/dL 2.3-4.7 604) Associate Professor Of Mathematics ID - MARIO LCBC W/PLT COUNT & AUTO [id number] 04:36:34 Test Item Value Reference Range Interpretation Comments WHITE BLOOD CELL COUNT (BEAKER) 10.2 K/ L 3.5-10.5 (test code = 775) RED BLOOD CELL COUNT (BEAKER) 2.82 M/ L 3.93-5.22 L (test code = 761) HEMOGLOBIN (BEAKER) (test code = 8.4 GM/DL 11.2-15.7 L 410) HEMATOCRIT (BEAKER) (test code = 27.6 % 34.1-44.9 L 411) MEAN CORPUSCULAR VOLUME (BEAKER) 98 fL 79-95 H (test code = 753) MEAN CORPUSCULAR HEMOGLOBIN 29.8 pg 25.6-32.2 (BEAKER) (test code = 751) MEAN CORPUSCULAR HEMOGLOBIN CONC 30.4 GM/DL 32.2-35.5 L (BEAKER) (test code = 752) RED CELL DISTRIBUTION WIDTH 15.8 % 11.7-14.4 H (BEAKER) (test code = 412) PLATELET COUNT (BEAKER) (test 194 K/CU MM 150-450 code = 756) MEAN PLATELET VOLUME (BEAKER) 10.1 fL 9.4-12.3 (test code = 754) NUCLEATED RED BLOOD CELLS 0 /100 WBC 0-0 (BEAKER) (test code = 413) NEUTROPHILS RELATIVE PERCENT 82 % (BEAKER) (test code = 429) LYMPHOCYTES RELATIVE PERCENT 9 % (BEAKER) (test code = 430) MONOCYTES RELATIVE PERCENT 8 % (BEAKER) (test code = 431) EOSINOPHILS RELATIVE PERCENT 1 % (BEAKER) (test code = 432) BASOPHILS RELATIVE PERCENT 0 % (BEAKER) (test code = 437) NEUTROPHILS ABSOLUTE COUNT 8.31 K/ L 1.56-6.13 H (BEAKER) (test code = 670) LYMPHOCYTES ABSOLUTE COUNT 0.95 K/ L 1.18-3.74 L (BEAKER) (test code = 414) MONOCYTES ABSOLUTE COUNT (BEAKER) 0.82 K/ L 0.24-0.36 H (test code = 415) EOSINOPHILS ABSOLUTE COUNT 0.05 K/ L 0.04-0.36 (BEAKER) (test code = 416) BASOPHILS ABSOLUTE COUNT (BEAKER) 0.03 K/ L 0.01-0.08 (test code = 417) IMMATURE GRANULOCYTES-RELATIVE 0.40 % 0.00-1.00 PERCENT (BEAKER) (test code = 2801) POCT-GLUCOSE [id number] 21:16:08 Test Item Value Reference Range Interpretation Comments POC-GLUCOSE METER 133 mg/dL 70-110 H : TESTED A T [facility] 6720 (BEAKER) (test code = [place], 1538) 84361: Associate Professor Of Mathematics/Techni wendi ID = [id number] for TOMASZ CARREON RAD, CHEST, 1 VIEW, NON [id number] 17:27:00Reason for exam:->follow up pleural effusionShould this be performed at the bedside?->[facility] 1940 Sex: FFINAL REPORT Chest, 1 view. History: Follow-up pleural effusion. Comparison: 08/02/2022. IMPRESSION: There are stable left lower lung zone opacities suggestive of combination of atelectasis and small effusion. Stable mild right basilar opacities noted suggestive of atelectasis. There is no evidence for new large focal consolidation or pneumothorax. The cardiomediastinal silhouette isstable in appearance. Postsurgical changes from median sternotomy again noted. No acute osseous abnormality is identified. Signed: Jerod Ashraf Verified Date/Time: 08/06/2022 17:27:28 Electron ically signed by: JEROD ASHRAF MD on 08/06/2022 05:27 PMPOCT-GLUCOSE METER 2022-08-06 17:15:05 Test Item Value Reference Range Interpretation Comments POC-GLUCOSE METER 145 mg/dL 70-110 H : TESTED A T [facility] 6720 (BEAKER) (test code = [facility], 1538) 86676: Associate Professor Of Mathematics/Techni wendi ID = [id number] for Iv ey (contract), [employer] one POCT-GLUCOSE [id number] 08:55:44 Test Item Value Reference Range Interpretation Comments POC-GLUCOSE METER 154 mg/dL 70-110 H : TESTED A T [facility] 6720 (BEAKER) (test code = [facility], 1538) 91441: Associate Professor Of Mathematics/Techni wendi ID = [id number] for Iv ey (contract), [employer] one CBC W/PLT COUNT & AUTO [id number] 05:54:49 Test Item Value Reference Range Interpretation Comments WHITE BLOOD CELL COUNT (BEAKER) 8.6 K/ L 3.5-10.5 (test code = 775) RED BLOOD CELL COUNT (BEAKER) 2.90 M/ L 3.93-5.22 L (test code = 761) HEMOGLOBIN (BEAKER) (test code = 8.6 GM/DL 11.2-15.7 L 410) HEMATOCRIT (BEAKER) (test code = 27.5 % 34.1-44.9 L 411) MEAN CORPUSCULAR VOLUME (BEAKER) 95 fL 79-95 (test code = 753) MEAN CORPUSCULAR HEMOGLOBIN 29.7 pg 25.6-32.2 (BEAKER) (test code = 751) MEAN CORPUSCULAR HEMOGLOBIN CONC 31.3 GM/DL 32.2-35.5 L (BEAKER) (test code = 752) RED CELL DISTRIBUTION WIDTH 15.9 % 11.7-14.4 H (BEAKER) (test code = 412) PLATELET COUNT (BEAKER) (test 221 K/CU MM 150-450 code = 756) MEAN PLATELET VOLUME (BEAKER) 10.7 fL 9.4-12.3 (test code = 754) NUCLEATED RED BLOOD CELLS 0 /100 WBC 0-0 (BEAKER) (test code = 413) NEUTROPHILS RELATIVE PERCENT 78 % (BEAKER) (test code = 429) LYMPHOCYTES RELATIVE PERCENT 13 % (BEAKER) (test code = 430) MONOCYTES RELATIVE PERCENT 9 % (BEAKER) (test code = 431) EOSINOPHILS RELATIVE PERCENT 1 % (BEAKER) (test code = 432) BASOPHILS RELATIVE PERCENT 0 % (BEAKER) (test code = 437) NEUTROPHILS ABSOLUTE COUNT 6.71 K/ L 1.56-6.13 H (BEAKER) (test code = 670) LYMPHOCYTES ABSOLUTE COUNT 1.08 K/ L 1.18-3.74 L (BEAKER) (test code = 414) MONOCYTES ABSOLUTE COUNT (BEAKER) 0.73 K/ L 0.24-0.36 H (test code = 415) EOSINOPHILS ABSOLUTE COUNT 0.06 K/ L 0.04-0.36 (BEAKER) (test code = 416) BASOPHILS ABSOLUTE COUNT (BEAKER) 0.02 K/ L 0.01-0.08 (test code = 417) IMMATURE GRANULOCYTES-RELATIVE 0.30 % 0.00-1.00 PERCENT (BEAKER) (test code = 2801) [id number] 05:51:45 Test Item Value Reference Range Interpretation Comments PHOSPHORUS (BEAKER) (test code = 3.0 mg/dL 2.3-4.7 604) Associate Professor Of Mathematics ID - SANTI MBASIC METABOLIC [id number] 05:51:44 Test Item Value Reference Range Interpretation Comments SODIUM (BEAKER) 142 meq/L 136-145 (test code = 381) POTASSIUM 3.5 meq/L 3.5-5.1 (BEAKER) (test code = 379) CHLORIDE (BEAKER) 95 meq/L 98-107 L (test code = 382) CO2 (BEAKER) 38 meq/L 22-29 H (test code = 355) BLOOD UREA 30 mg/dL 7-21 H NITROGEN (BEAKER) (test code = 354) CREATININE 0.99 mg/dL 0.57-1.25 (BEAKER) (test code = 358) GLUCOSE RANDOM 133 mg/dL 70-105 H (BEAKER) (test code = 652) CALCIUM (BEAKER) 8.9 mg/dL 8.4-10.2 (test code = 697) EGFR (BEAKER) 57 Interpretatio n of eGFR (test code = mL/min/1.73 values Stage De scription 1092) sq m Result G1 Cecilia l or high >=90 G2 Mildly decreased 60-89 G3a Mildl y to moderately 45-5 9 G3b Moderately to s everely 30-44 G4 Severl y decreased 15-29 G5 Kidney failure <15Reported eGF R is based on the CKD-EPI 2020 equation that d oes not use a race coefficientEsti mated GFR is not as accur ate as Creatinine Susanne lund in predicting glom erular filtration rate . Estimated GFR is not appl icable for dialysis patien ts Associate Professor Of Mathematics ID - SANTI [id number] 05:51:44 Test Item Value Reference Range Interpretation Comments MAGNESIUM (BEAKER) (test code = 2.1 mg/dL 1.6-2.6 627) Associate Professor Of Mathematics ID - SANTI MUrinalysis w/Microscopic + Reflex to [id number] 05:47:26 Test Item Value Reference Range Interpretation Comments Color, UA (test Light Yellow code = 5778-6) Clarity, UA (test Clear code = 5767-9) Specific [place], 1.014 1.001-1.035 UA (test code = 5811-5) pH, UA (test code 7.0 5.0-8.0 = 5803-2) Protein, UA (test Negative Negative code = 77843-5) Glucose, UA (test Negative Negative code = 365) Ketones, UA (test Negative Negative code = 2514-8) Bilirubin, UA Negative Negative (test code = 05089-3) Blood, UA (test Negative Negative code = 24420-1) Nitrite, UA (test Negative Negative code = 5802-4) Leukocytes, UA Negative Negative (test code = 5799-2) Urobilinogen, UA 0.2 0.2-1.0 (test code = 54236-8) RBC, UA (test 1 See_Comment [Automated me ssage] code = 34651-9) The system [facility] generated this result transmit salvador reference range : /HPF. The refer ence range was not u sed to interpret th is result as normal/abnormal . WBC, UA (test 2 See_Comment [Automated me ssage] code = 5821-4) The system [place] hospital generated this result transmit salvador reference range : /HPF. The refer ence range was not u sed to interpret th is result as normal/abnormal . Bacteria, UA Rare (test code = 02869-0) Mucus (test code Rare = 8247-9) Squam Epithel, UA 2 See_Comment [Automate d message] (test code = The system [facility] 91945-8) generated this result transmit salvador reference range : /HPF. The refer ence range was not u sed to interpret th is result as normal/abnormal . Hyaline Casts, UA 9 See_Comment [Automate d message] (test code = The system [facility] 18365-2) generated this result transmit salvador reference range : /LPF. The refer ence range was not u sed to interpret th is result as normal/abnormal . Granular Casts, 2 See_Comment [Automated message] UA (test code = The system [facility] 5793-5) generated this result transmit salvador reference range : /LPF. The refer ence range was not u sed to interpret th is result as normal/abnormal . Specimen Source (test code = 2795) JANEEN (test code = Associate Professor Of Mathematics ID - JANEEN) [auto]Associate Professor Of Mathematics ID - [facility] [id number] 05:47:26 Test Item Value Reference Range Interpretation Comments COLOR (BEAKER) (test code = 470) Light Yellow CLARITY (BEAKER) (test code = Clear 469) SPECIFIC GRAVITY UA (BEAKER) 1.014 1.001-1.035 (test code = 468) PH UA (BEAKER) (test code = 467) 7.0 5.0-8.0 PROTEIN UA (BEAKER) (test code = Negative Negative 464) GLUCOSE UA (BEAKER) (test code = Negative Negative 365) KETONES UA (BEAKER) (test code = Negative Negative 371) BILIRUBIN UA (BEAKER) (test code Negative Negative = 462) BLOOD UA (BEAKER) (test code = Negative Negative 461) NITRITE UA (BEAKER) (test code = Negative Negative 465) LEUKOCYTE ESTERASE UA (BEAKER) Negative Negative (test code = 466) UROBILINOGEN UA (BEAKER) (test 0.2 0.2-1.0 code = 463) RBC UA (BEAKER) (test code = 1 /HPF 519) WBC UA (BEAKER) (test code = 2 /HPF 520) BACTERIA (BEAKER) (test code = Rare 517) MUCUS (BEAKER) (test code = Rare 1574) SQUAMOUS EPITHELIAL (BEAKER) 2 /HPF (test code = 516) HYALINE CASTS (BEAKER) (test 9 /LPF code = 514) GRANULAR CASTS (BEAKER) (test 2 /LPF code = 515) SOURCE(BEAKER) (test code = 2795) Associate Professor Of Mathematics ID - [auto]Associate Professor Of Mathematics ID - techPOCT-GLUCOSE [id number] 22:43:27 Test Item Value Reference Range Interpretation Comments POC-GLUCOSE METER 164 mg/dL 70-110 H : TESTED A T [facility] 6720 (BEAKER) (test code = [place], 1538) [address]: Associate Professor Of Mathematics/Techni wendi ID = [id number] for THERESA CASTREJON BASIC METABOLIC [id number] 17:41:45 Test Item Value Reference Range Interpretation Comments SODIUM (BEAKER) 142 meq/L 136-145 (test code = 381) POTASSIUM 3.6 meq/L 3.5-5.1 (BEAKER) (test code = 379) CHLORIDE (BEAKER) 94 meq/L 98-107 L (test code = 382) CO2 (BEAKER) 38 meq/L 22-29 H (test code = 355) BLOOD UREA 34 mg/dL 7-21 H NITROGEN (BEAKER) (test code = 354) CREATININE 1.03 mg/dL 0.57-1.25 (BEAKER) (test code = 358) GLUCOSE RANDOM 160 mg/dL 70-105 H (BEAKER) (test code = 652) CALCIUM (BEAKER) 9.4 mg/dL 8.4-10.2 (test code = 697) EGFR (BEAKER) 55 Interpretatio n of eGFR (test code = mL/min/1.73 values Stage De scription 1092) sq m Result G1 Cecilia l or high >=90 G2 Mildly decreased 60-89 G3a Mildl y to moderately 45-5 9 G3b Moderately to s everely 30-44 G4 Sever ly decreased 15-29 G5 Kidney failure <15Repo rted eGFR is based on the CKD-EPI 2020 equation t hat does not use a race coefficientEsti mated GFR is not as accur ate as Creatinine Susanne kevon in predicting glom erular filtration rate . Estimated GFR is not appl icable for dialysis patien ts Associate Professor Of Mathematics ID - [id number] 17:41:45 Test Item Value Reference Range Interpretation Comments MAGNESIUM (BEAKER) (test code = 2.3 mg/dL 1.6-2.6 627) Associate Professor Of Mathematics ID - BSPOCT-GLUCOSE [id number] 17:25:43 Test Item Value Reference Range Interpretation Comments POC-GLUCOSE METER 160 mg/dL 70-110 H : TESTED A T [facility] 6720 (BEAKER) (test code = [facility], 1538) [address]: Associate Professor Of Mathematics/Techni wendi ID = [id number] for KIZHAKEKATTIL, ELSY POCT-GLUCOSE [id number] 12:25:39 Test Item Value Reference Range Interpretation Comments POC-GLUCOSE METER 134 mg/dL 70-110 H : TESTED A T [facility] 6720 (BEAKER) (test code = [facility] WriteOn [facility], 1538) [address]: Associate Professor Of Mathematics/Techni wendi ID = [id number] for KIZHAKEKATTIL, ELSY POCT-GLUCOSE [id number] 08:14:55 Test Item Value Reference Range Interpretation Comments POC-GLUCOSE METER 124 mg/dL 70-110 H : TESTED A T [facility] 6720 (BEAKER) (test code = [facility], 1538) [address]: Associate Professor Of Mathematics/Techni wendi ID = [id number] for ELSY LEAL BASIC METABOLIC [id number] 05:16:27 Test Item Value Reference Range Interpretation Comments SODIUM (BEAKER) 142 meq/L 136-145 (test code = 381) POTASSIUM 3.4 meq/L 3.5-5.1 L (BEAKER) (test code = 379) CHLORIDE (BEAKER) 94 meq/L 98-107 L (test code = 382) CO2 (BEAKER) 41 meq/L 22-29 HH (test code = 355) BLOOD UREA 34 mg/dL 7-21 H NITROGEN (BEAKER) (test code = 354) CREATININE 0.98 mg/dL 0.57-1.25 (BEAKER) (test code = 358) GLUCOSE RANDOM 120 mg/dL 70-105 H (BEAKER) (test code = 652) CALCIUM (BEAKER) 8.8 mg/dL 8.4-10.2 (test code = 697) EGFR (BEAKER) 58 Interpretatio n of eGFR (test code = mL/min/1.73 values Stage De scription 1092) sq m Result G1 Cecilia l or high >=90 G2 Mildly decreased 60-89 G3a Mildl y to moderately 45-5 9 G3b Moderately to s everely 30-44 G4 Severl y decreased 15-29 G5 Kidney failure <15Reported eGF R is based on the CKD-EPI 2020 equation that d oes not use a race coefficientEsti mated GFR is not as accur ate as Creatinine Susanne kevon in predicting glom erular filtration rate . Estimated GFR is not appl icable for dialysis patien ts Associate Professor Of Mathematics ID - SHEKHAR WB-TYPE NATRIURETIC FACTOR (BNP)2022-08-05 05:08:44 Test Item Value Reference Range Interpretation Comments B-TYPE NATRIURETIC PEPTIDE (BEAKER) 331 pg/mL 0-100 H (test code = 700) Associate Professor Of Mathematics ID - SANTI [id number] 05:05:13 Test Item Value Reference Range Interpretation Comments MAGNESIUM (BEAKER) (test code = 1.7 mg/dL 1.6-2.6 627) Associate Professor Of Mathematics ID - SHEKHAR [id number] 05:05:13 Test Item Value Reference Range Interpretation Comments PHOSPHORUS (BEAKER) (test code = 3.8 mg/dL 2.3-4.7 604) Associate Professor Of Mathematics SANTO CORRIGAN WCBC W/PLT COUNT & AUTO [id number] 04:41:19 Test Item Value Reference Range Interpretation Comments WHITE BLOOD CELL COUNT (BEAKER) 7.5 K/ L 3.5-10.5 (test code = 775) RED BLOOD CELL COUNT (BEAKER) 2.95 M/ L 3.93-5.22 L (test code = 761) HEMOGLOBIN (BEAKER) (test code = 8.7 GM/DL 11.2-15.7 L 410) HEMATOCRIT (BEAKER) (test code = 28.4 % 34.1-44.9 L 411) MEAN CORPUSCULAR VOLUME (BEAKER) 96 fL 79-95 H (test code = 753) MEAN CORPUSCULAR HEMOGLOBIN 29.5 pg 25.6-32.2 (BEAKER) (test code = 751) MEAN CORPUSCULAR HEMOGLOBIN CONC 30.6 GM/DL 32.2-35.5 L (BEAKER) (test code = 752) RED CELL DISTRIBUTION WIDTH 15.9 % 11.7-14.4 H (BEAKER) (test code = 412) PLATELET COUNT (BEAKER) (test 216 K/CU MM 150-450 code = 756) MEAN PLATELET VOLUME (BEAKER) 10.2 fL 9.4-12.3 (test code = 754) NUCLEATED RED BLOOD CELLS 0 /100 WBC 0-0 (BEAKER) (test code = 413) NEUTROPHILS RELATIVE PERCENT 77 % (BEAKER) (test code = 429) LYMPHOCYTES RELATIVE PERCENT 13 % (BEAKER) (test code = 430) MONOCYTES RELATIVE PERCENT 9 % (BEAKER) (test code = 431) EOSINOPHILS RELATIVE PERCENT 1 % (BEAKER) (test code = 432) BASOPHILS RELATIVE PERCENT 0 % (BEAKER) (test code = 437) NEUTROPHILS ABSOLUTE COUNT 5.78 K/ L 1.56-6.13 (BEAKER) (test code = 670) LYMPHOCYTES ABSOLUTE COUNT 0.98 K/ L 1.18-3.74 L (BEAKER) (test code = 414) MONOCYTES ABSOLUTE COUNT (BEAKER) 0.66 K/ L 0.24-0.36 H (test code = 415) EOSINOPHILS ABSOLUTE COUNT 0.08 K/ L 0.04-0.36 (BEAKER) (test code = 416) BASOPHILS ABSOLUTE COUNT (BEAKER) 0.01 K/ L 0.01-0.08 (test code = 417) IMMATURE GRANULOCYTES-RELATIVE 0.30 % 0.00-1.00 PERCENT (BEAKER) (test code = 2801) POCT-GLUCOSE [id number] 20:56:56 Test Item Value Reference Range Interpretation Comments POC-GLUCOSE METER 152 mg/dL 70-110 H : TESTED A T [facility] 6720 (BEAKER) (test code = [facility], 1538) [address]: Associate Professor Of Mathematics/Techni wendi ID = [id number] for THERESA CASTREJON POCT-GLUCOSE [id number] 17:20:51 Test Item Value Reference Range Interpretation Comments POC-GLUCOSE METER 136 mg/dL 70-110 H : TESTED A T [facility] 6720 (BEAKER) (test code = [facility], 1538) 85[address]: Associate Professor Of Mathematics/Techni wendi ID = [id number] for OR NAINA CABELLO BASIC METABOLIC [id number] 13:15:42 Test Item Value Reference Range Interpretation Comments SODIUM (BEAKER) 143 meq/L 136-145 (test code = 381) POTASSIUM 3.8 meq/L 3.5-5.1 (BEAKER) (test code = 379) CHLORIDE (BEAKER) 95 meq/L 98-107 L (test code = 382) CO2 (BEAKER) 41 meq/L 22-29 HH (test code = 355) BLOOD UREA 38 mg/dL 7-21 H NITROGEN (BEAKER) (test code = 354) CREATININE 0.98 mg/dL 0.57-1.25 (BEAKER) (test code = 358) GLUCOSE RANDOM 126 mg/dL 70-105 H (BEAKER) (test code = 652) CALCIUM (BEAKER) 9.1 mg/dL 8.4-10.2 (test code = 697) EGFR (BEAKER) 58 Interpretatio n of eGFR (test code = mL/min/1.73 values Stage De scription 1092) sq m Result G1 Cecilia l or high >=90 G2 Mildly decreased 60-89 G3a Mildl y to moderately 45-5 9 G3b Moderately to s everely 30-44 G4 Severl y decreased 15-29 G5 Kidney failure <15Reported eGF R is based on the CKD-EPI 2020 equation that d oes not use a race coefficientEsti mated GFR is not as accur ate as Creatinine Susanne kevon in predicting glom erular filtration rate . Estimated GFR is not appl icable for dialysis patien ts Associate Professor Of Mathematics ID - PIAYA LPOCT-GLUCOSE [id number] 12:29:08 Test Item Value Reference Range Interpretation Comments POC-GLUCOSE METER 142 mg/dL 70-110 H : TESTED A T [facility] 6720 (JUAN F) (test code = [place] [facility], 1538) [address]: Associate Professor Of Mathematics/Techni wendi ID = [id number] for OR YUSEFLalitoNAINA CT, CHEST, WITHOUT [id number] 10:44:00Unlisted Reason for Exam - Click Yes and Enter Reason Below->No [facility] : 1940 Sex: FFINAL REPORT CT Chest without contrast History: Abnormal x-ray, pleural effusion Comparison: CT chest 07/26/2022 Technique: serial axial imaging was performed without intravenous contrast as per departmental protocol. Multiplanar images are reconstructed and reviewed when indicated. This CT examination is performed using one or more of the following dose reduction techniques: Automat ed exposure control, adjustment of the mA and /or kV according to patient size, and/or use of iterative reconstruction technique. Findings:No mediastinal lymphadenopathy. No definite hilar enlargement.Mild cardiomegaly. Trace pericardial effusion. No thoracic aortic aneurysm. Normal caliber of main pu lmonary trunk. Patent central airways. Small bilateral pleural effusions are again noted. The right pleural effusion is decreased in size. Mild bilateral pulmonary groundglass densities are again noted. Consolidation of the left lower lobe is noted, with mild volume loss suggesting atelectasis. There is also mild dependent consolidation within the right lower lobe. No significant findings in the partially imaged abdomen. The previous small subcutaneous fluid collection near the inferior sternum shows no significant change in size. No aggressive osseous lesion. 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 Impression: 1. The left lower lobe is completely consolidated,with mild volume loss. The findings are consistent with atelectasis, possibly with superimposed pneumonia. Clinical correlation is required.2. Small bilateral pleural effusions, left greater than right.3. Mild bilateral pulmonary groundglass densities, probably interstitial edema.4. Mild cardiomegaly.Trace pericardial effusion.5. The previous small subacute collection adjacent to the inferior sternum is unchanged and likely represents an evolving hematoma. Signed: Norman Mccullough MDReport Verified Date/Time: 08/04/2022 10:44:39 POCT-GLUCOSE [id number] 07:36:43 Test Item Value Reference Range Interpretation Comments POC-GLUCOSE METER 154 mg/dL 70-110 H : TESTED A T [facility] 6720 (BEAKER) (test code = [facility] [facility], 1538) [address]: Associate Professor Of Mathematics/Techni wendi ID = [id number] for OR NAINA CABELLO [id number] 05:37:25 Test Item Value Reference Range Interpretation Comments MAGNESIUM (BEAKER) (test code = 1.7 mg/dL 1.6-2.6 627) Associate Professor Of Mathematics ID - MARIO [id number] 05:37:25 Test Item Value Reference Range Interpretation Comments PHOSPHORUS (BEAKER) (test code = 3.4 mg/dL 2.3-4.7 604) Associate Professor Of Mathematics ID - MARIO LBASIC METABOLIC [id number] 05:37:24 Test Item Value Reference Range Interpretation Comments SODIUM (BEAKER) 143 meq/L 136-145 (test code = 381) POTASSIUM 3.6 meq/L 3.5-5.1 (BEAKER) (test code = 379) CHLORIDE (BEAKER) 95 meq/L 98-107 L (test code = 382) CO2 (BEAKER) 39 meq/L 22-29 H (test code = 355) BLOOD UREA 40 mg/dL 7-21 H NITROGEN (BEAKER) (test code = 354) CREATININE 0.98 mg/dL 0.57-1.25 (BEAKER) (test code = 358) GLUCOSE RANDOM 128 mg/dL 70-105 H (BEAKER) (test code = 652) CALCIUM (BEAKER) 9.2 mg/dL 8.4-10.2 (test code = 697) EGFR (BEAKER) 58 Interpretatio n of eGFR (test code = mL/min/1.73 values Stage De scription 1092) sq m Result G1 Cecilia l or high >=90 G2 Mildly decreased 60-89 G3a Mildl y to moderately 45-5 9 G3b Moderately to s everely 30-44 G4 Severl y decreased 15-29 G5 Kidney failure <15Reported eGF R is based on the CKD-EPI 2020 equation that d oes not use a race coefficientEsti mated GFR is not as accur ate as Creatinine Susanne lund in predicting glom erular filtration rate . Estimated GFR is not appl icable for dialysis patien ts Associate Professor Of Mathematics ID - PIAYA LCBC W/PLT COUNT & AUTO [id number] 04:52:11 Test Item Value Reference Range Interpretation Comments WHITE BLOOD CELL COUNT (BEAKER) 7.9 K/ L 3.5-10.5 (test code = 775) RED BLOOD CELL COUNT (BEAKER) 2.70 M/ L 3.93-5.22 L (test code = 761) HEMOGLOBIN (BEAKER) (test code = 8.2 GM/DL 11.2-15.7 L 410) HEMATOCRIT (BEAKER) (test code = 25.7 % 34.1-44.9 L 411) MEAN CORPUSCULAR VOLUME (BEAKER) 95 fL 79-95 (test code = 753) MEAN CORPUSCULAR HEMOGLOBIN 30.4 pg 25.6-32.2 (BEAKER) (test code = 751) MEAN CORPUSCULAR HEMOGLOBIN CONC 31.9 GM/DL 32.2-35.5 L (BEAKER) (test code = 752) RED CELL DISTRIBUTION WIDTH 16.4 % 11.7-14.4 H (BEAKER) (test code = 412) PLATELET COUNT (BEAKER) (test 219 K/CU MM 150-450 code = 756) MEAN PLATELET VOLUME (BEAKER) 9.8 fL 9.4-12.3 (test code = 754) NUCLEATED RED BLOOD CELLS 0 /100 WBC 0-0 (BEAKER) (test code = 413) NEUTROPHILS RELATIVE PERCENT 75 % (BEAKER) (test code = 429) LYMPHOCYTES RELATIVE PERCENT 14 % (BEAKER) (test code = 430) MONOCYTES RELATIVE PERCENT 10 % (BEAKER) (test code = 431) EOSINOPHILS RELATIVE PERCENT 1 % (BEAKER) (test code = 432) BASOPHILS RELATIVE PERCENT 0 % (BEAKER) (test code = 437) NEUTROPHILS ABSOLUTE COUNT 5.92 K/ L 1.56-6.13 (BEAKER) (test code = 670) LYMPHOCYTES ABSOLUTE COUNT 1.11 K/ L 1.18-3.74 L (BEAKER) (test code = 414) MONOCYTES ABSOLUTE COUNT (BEAKER) 0.79 K/ L 0.24-0.36 H (test code = 415) EOSINOPHILS ABSOLUTE COUNT 0.06 K/ L 0.04-0.36 (BEAKER) (test code = 416) BASOPHILS ABSOLUTE COUNT (BEAKER) 0.02 K/ L 0.01-0.08 (test code = 417) IMMATURE GRANULOCYTES-RELATIVE 0.40 % 0.00-1.00 PERCENT (BEAKER) (test code = 2801) POCT-GLUCOSE [id number] 21:41:26 Test Item Value Reference Range Interpretation Comments POC-GLUCOSE METER 158 mg/dL 70-110 H : TESTED A T [facility] 6720 (BEAKER) (test code = [place] [facility], 1538) [address]: Associate Professor Of Mathematics/Techni wendi ID = [id number] for Zunilda Bowman SARS-COV2/RT-PCR ([facility])2022-08-03 17:40:19 Test Item Value Reference Range Interpretation Comments SARS-COV2/RT-PCR Negative Negative The SARS-Co V-2 target (test code = nucleic acids a re not 1588517) detected in thi s specimen. Negative result s do not preclude SARS-C oV-2 infection and s hould not be used as the lucrecia e basis for patient managem ent decisions. Nega tive results must be combine d with clinical observ ations, patient history , and epidemiological information. A false negativ e result may occur if a spec imen is improperly anastacia ected, transported or handled. This SARS CoV-2 test is a rapid, real-time RT-PC R test intended for th e qualitative detection of nu cleic acid from SARS-CoV-2 in a nasopharyngeal swab specimen collected from individuals suspected of CO VID-19 by their healthcar e provider. This test has been authorized by FDA under an EUA for use by authorized laboratories. This test is only authorized for the duration of the declaration that circumstances exist justifying the authorization of emergency use of in vitro diagnostic tests for detection and/or diagnosis of COVID-19 under Section 564(b)(1) of the Federal Food, Drug and Cosmetic Act, 21 U.S.C. 360bbb-3(b)(1), unless the authorization is terminated or revoked sooner. Fact Sheet for Healthcare Providers: https://www.[employer]/Documents/Xpert%20Xpress%20SARS%20CoV-2/Fact%20Sheets/3023802%83SNWR-YAQ-5%20 HEALTHCARE%20PROVIDERS%20FACT%20SHEET.pdf Fact Sheet for Healthcare Patients: https://www.[employer]/Documents/Xpert%20Xp ress%20SARS%20CoV-2/Fact%20Sheets/3023801%41XUBP-OLM-6%20PATIENT%20FACT%20SHEET .pdfPOCT-GLUCOSE [id number] 17:31:30 Test Item Value Reference Range Interpretation Comments POC-GLUCOSE METER 130 mg/dL 70-110 H : TESTED A T [facility] (BEAKER) (test code = [facility], 1538) [address]: Associate Professor Of Mathematics/Techni wendi ID = [id number] for An Maria Isabel Suárez BASIC METABOLIC [id number] 15:37:56 Test Item Value Reference Range Interpretation Comments SODIUM (BEAKER) 142 meq/L 136-145 (test code = 381) POTASSIUM 4.1 meq/L 3.5-5.1 (BEAKER) (test code = 379) CHLORIDE (BEAKER) 95 meq/L 98-107 L (test code = 382) CO2 (BEAKER) 39 meq/L 22-29 H (test code = 355) BLOOD UREA 44 mg/dL 7-21 H NITROGEN (BEAKER) (test code = 354) CREATININE 1.02 mg/dL 0.57-1.25 (BEAKER) (test code = 358) GLUCOSE RANDOM 132 mg/dL 70-105 H (BEAKER) (test code = 652) CALCIUM (BEAKER) 9.6 mg/dL 8.4-10.2 (test code = 697) EGFR (BEAKER) 55 Interpretatio n of eGFR (test code = mL/min/1.73 values Stage De scription 1092) sq m Result G1 Cecilia l or high >=90 G2 Mildly decreased 60-89 G3a Mildl y to moderately 45-5 9 G3b Moderately to s everely 30-44 G4 Severl y decreased 15-29 G5 Kidney failure <15Reported eGF R is based on the CKD-EPI 2020 equation that d oes not use a race coefficientEsti mated GFR is not as accur ate as Creatinine Susanne kevon in predicting glom erular filtration rate . Estimated GFR is not appl icable for dialysis patien ts Associate Professor Of Mathematics ID - BSPOCT-GLUCOSE [id number] 08:00:43 Test Item Value Reference Range Interpretation Comments POC-GLUCOSE METER 135 mg/dL 70-110 H : TESTED A T [facility] 6720 (BEAKER) (test code = [facility], 1538) [address]: Associate Professor Of Mathematics/Techni wendi ID = [id number] for LIDIA GA [id number] 07:00:24 Test Item Value Reference Range Interpretation Comments PHOSPHORUS (BEAKER) (test code = 3.6 mg/dL 2.3-4.7 604) Associate Professor Of Mathematics ID - PIAYA LBASIC METABOLIC [id number] 07:00:23 Test Item Value Reference Range Interpretation Comments SODIUM (BEAKER) 141 meq/L 136-145 (test code = 381) POTASSIUM 4.2 meq/L 3.5-5.1 (BEAKER) (test code = 379) CHLORIDE (BEAKER) 96 meq/L 98-107 L (test code = 382) CO2 (BEAKER) 38 meq/L 22-29 H (test code = 355) BLOOD UREA 44 mg/dL 7-21 H NITROGEN (BEAKER) (test code = 354) CREATININE 0.94 mg/dL 0.57-1.25 (BEAKER) (test code = 358) GLUCOSE RANDOM 128 mg/dL 70-105 H (BEAKER) (test code = 652) CALCIUM (BEAKER) 9.2 mg/dL 8.4-10.2 (test code = 697) EGFR (BEAKER) 61 Interpretatio n of eGFR (test code = mL/min/1.73 values Stage De scription 1092) sq m Result G1 Cecilia l or high >=90 G2 Mildly decreased 60-89 G3a Mildl y to moderately 45-5 9 G3b Moderately to s everely 30-44 G4 Severl y decreased 15-29 G5 Kidney failure <15Reported eGF R is based on the CKD-EPI 2020 equation that d oes not use a race coefficientEsti mated GFR is not as accur ate as Creatinine Susanne kevon in predicting glom erular filtration rate . Estimated GFR is not appl icable for dialysis patien ts Associate Professor Of Mathematics ID - MARIO [id number] 07:00:23 Test Item Value Reference Range Interpretation Comments MAGNESIUM (BEAKER) (test code = 1.7 mg/dL 1.6-2.6 627) Associate Professor Of Mathematics ID - MARIO LBLOOD GAS, [id number] 05:22:21 Test Item Value Reference Range Interpretation Comments PH VENOUS (BEAKER) (test code = 7.41 7.32-7.42 701) PCO2 VENOUS (BEAKER) (test code = 72 mm Hg 41-51 HH 755) PO2 VENOUS (BEAKER) (test code = 80 mm Hg 25-40 H 702) O2 SATURATION VENOUS (BEAKER) 95.4 % 40.0-70.0 H (test code = 703) HCO3 VENOUS (BEAKER) (test code = 44 mmol/L 21-29 HH 705) BASE EXCESS VENOUS (BEAKER) (test 17.4 mmol/L -2.0-3.0 H code = 704) PATIENT TEMPERATURE (BEAKER) 37.0 (test code = 1818) FIO2 (BEAKER) (test code = 1819) 21.0 CBC W/PLT COUNT & AUTO [id number] 05:20:43 Test Item Value Reference Range Interpretation Comments WHITE BLOOD CELL COUNT (BEAKER) 7.1 K/ L 3.5-10.5 (test code = 775) RED BLOOD CELL COUNT (BEAKER) 2.63 M/ L 3.93-5.22 L (test code = 761) HEMOGLOBIN (BEAKER) (test code = 7.9 GM/DL 11.2-15.7 L 410) HEMATOCRIT (BEAKER) (test code = 25.9 % 34.1-44.9 L 411) MEAN CORPUSCULAR VOLUME (BEAKER) 99 fL 79-95 H (test code = 753) MEAN CORPUSCULAR HEMOGLOBIN 30.0 pg 25.6-32.2 (BEAKER) (test code = 751) MEAN CORPUSCULAR HEMOGLOBIN CONC 30.5 GM/DL 32.2-35.5 L (BEAKER) (test code = 752) RED CELL DISTRIBUTION WIDTH 16.0 % 11.7-14.4 H (BEAKER) (test code = 412) PLATELET COUNT (BEAKER) (test 214 K/CU MM 150-450 code = 756) MEAN PLATELET VOLUME (BEAKER) 9.6 fL 9.4-12.3 (test code = 754) NUCLEATED RED BLOOD CELLS 0 /100 WBC 0-0 (BEAKER) (test code = 413) NEUTROPHILS RELATIVE PERCENT 74 % (BEAKER) (test code = 429) LYMPHOCYTES RELATIVE PERCENT 14 % (BEAKER) (test code = 430) MONOCYTES RELATIVE PERCENT 11 % (BEAKER) (test code = 431) EOSINOPHILS RELATIVE PERCENT 1 % (BEAKER) (test code = 432) BASOPHILS RELATIVE PERCENT 0 % (BEAKER) (test code = 437) NEUTROPHILS ABSOLUTE COUNT 5.27 K/ L 1.56-6.13 (BEAKER) (test code = 670) LYMPHOCYTES ABSOLUTE COUNT 0.97 K/ L 1.18-3.74 L (BEAKER) (test code = 414) MONOCYTES ABSOLUTE COUNT (BEAKER) 0.76 K/ L 0.24-0.36 H (test code = 415) EOSINOPHILS ABSOLUTE COUNT 0.05 K/ L 0.04-0.36 (BEAKER) (test code = 416) BASOPHILS ABSOLUTE COUNT (BEAKER) 0.02 K/ L 0.01-0.08 (test code = 417) IMMATURE GRANULOCYTES-RELATIVE 0.60 % 0.00-1.00 PERCENT (BEAKER) (test code = 2801) POCT-GLUCOSE [id number] 20:47:19 Test Item Value Reference Range Interpretation Comments POC-GLUCOSE METER 161 mg/dL 70-110 H : TESTED A T [facility] 6720 (BEAKER) (test code = [facility], 1538) [id number]: Associate Professor Of Mathematics/Techni wendi ID = [id number] for ELKE FOWLER POCT-GLUCOSE [id number] 17:26:57 Test Item Value Reference Range Interpretation Comments POC-GLUCOSE METER 136 mg/dL 70-110 H : TESTED A T [facility] 6720 (BEAKER) (test code [facility], = 1538) 39163: Associate Professor Of Mathematics/Techni wendi ID = [id number] for Sally Lenz RAD, CHEST, PA OR AP, 1 [id number] 13:58:00Reason for exam:->left sided thoracentesisVENCOR [facility]OS[facility]ITALName: [facility]UD[facility] : 1940 Sex: FFINAL REPORT Chest, 1 view. History: Status post left thoracentesis. Comparison: 08/01/2022. Impression: There is been interval evacuation of left- sided pleural fluid with improved aeration of the left lung. There is no evidence for pneumothorax status post thoracentesis. Mild bibasilar atelectasis noted. The cardiomediastinal silhouette is stable in appearance. No acute osseous abnormality is identified. Postsurgical changes from median sternotomy again noted. Signed: Wing Ashraf Verified Date/Time: 08/02/2022 13:58:56 U/S, [id number] 13:55:00Laterality?->LeftReason for exam:->pl effusionShould this be performed at the bedside?->NoLabs to be Ordered:- >No Labs Needed [facility] 1940 Sex: FFINAL REPORT Ultrasound guided left thoracentesis. Clinical History: Left pleural effusion. Modality: Ultrasound. Sedation: None. Director Of Enterprise Architecture: Cherri Joyce PA-C Taping Foreman: None. Estimated Blood Loss: 1cc Specimen: 600 cc of serosanguineous fluid. Technique: Informed consent was obtained. The risks of pain, bleeding, infection, lung collapse/pneumothorax, injury to adjacent str uctures, and adverse medication reactions were discussed with the patient. The patient's left hemithorax was scanned from the back, with the patient in a right lateral decubitus position. After the largest fluid pocket area was marked, the skin was prepped and draped in the usual sterile manner. The area was anesthetized with 2% lidocaine, a 5 F one-step catheter was advanced into the pleural space under ultrasound guidance. After completion of drainage, the catheter was removed. There was no evidence of immediate complication. Post procedure chest x-ray is pending. Impression:Successful and uncomplicated ultrasound guided left thoracentesis. Signed: Jerod Ashraf MDReport Verified Date/Time: 08/02/2022 13:55:45 Reading Location: [address] Ultrasound Reading Room POCT- GLUCOSE [id number] 12:40:44 Test Item Value Reference Range Interpretation Comments POC-GLUCOSE METER 129 mg/dL 70-110 H : TESTED A T [facility] 6720 (BEAKER) (test code [facility], = 1538) [id number]: Associate Professor Of Mathematics/Techni wendi ID = [id number] for Sally Lenz BASIC METABOLIC [id number] 11:30:42 Test Item Value Reference Range Interpretation Comments SODIUM (BEAKER) 139 meq/L 136-145 (test code = 381) POTASSIUM 4.4 meq/L 3.5-5.1 (BEAKER) (test code = 379) CHLORIDE (BEAKER) 94 meq/L 98-107 L (test code = 382) CO2 (BEAKER) 40 meq/L 22-29 HH (test code = 355) BLOOD UREA 54 mg/dL 7-21 H NITROGEN (BEAKER) (test code = 354) CREATININE 1.10 mg/dL 0.57-1.25 (BEAKER) (test code = 358) GLUCOSE RANDOM 129 mg/dL 70-105 H (BEAKER) (test code = 652) CALCIUM (BEAKER) 9.7 mg/dL 8.4-10.2 (test code = 697) EGFR (BEAKER) 50 Interpretatio n of eGFR (test code = mL/min/1.73 values Stage De scription 1092) sq m Result G1 Norm al or high >=90 G2 Mildly decreased 60-89 G3a Mildl y to moderately 45-5 9 G3b Moderately to s everely 30-44 G4 Severl y decreased 15-29 G5 Kidney failure <15Reported eGF R is based on the CKD-EPI 2021 equation that d oes not use a race coefficientEsti mated GFR is not as accur ate as Creatinine Susanne lund in predicting glom erular filtration rate . Estimated GFR is not appl icable for dialysis patien ts Associate Professor Of Mathematics ID - ADMINPT/[id number] 11:12:20 Test Item Value Reference Range Interpretation Comments PROTIME (BEAKER) (test 15.9 seconds 11.9-14.2 H code = 759) INR (BEAKER) (test 1.30 See_Comment [Automat ed code = 370) message] The sy stem which generated this result transmitted reference range : <=5.90. The reference range was not used to interpret this result as normal/abnormal . PARTIAL THROMBOPLASTIN 37.6 seconds 22.5-36.0 H TIME (BEAKER) (test code = 760) RECOMMENDED COUMADIN/WARFARIN INR THERAPY RANGESSTANDARD DOSE: 2.0 - 3.0 Includes: PROPHYLAXIS for venous thrombosis, systemic embolization; TREATMENT for venous thrombosis and/or pulmonary embolus.HIGH RISK: Target INR is 2.5-3.5 for patients with mechanical heart valves.POCT-GLUCOSE [id number] 08:15:57 Test Item Value Reference Range Interpretation Comments POC-GLUCOSE METER 127 mg/dL 70-110 H : TESTED A T [facility] 6720 (BEAKER) (test code [facility], = 1538) [id number]: Associate Professor Of Mathematics/Techni wendi ID = [id number] for Sally Lenz [id number] 05:57:57 Test Item Value Reference Range Interpretation Comments MAGNESIUM (BEAKER) (test code = 1.9 mg/dL 1.6-2.6 627) Associate Professor Of Mathematics ID - [id number] 05:57:57 Test Item Value Reference Range Interpretation Comments PHOSPHORUS (BEAKER) (test code = 3.6 mg/dL 2.3-4.7 604) Associate Professor Of Mathematics ID - ADMINBASIC METABOLIC [id number] 05:57:56 Test Item Value Reference Range Interpretation Comments SODIUM (BEAKER) 138 meq/L 136-145 (test code = 381) POTASSIUM 4.4 meq/L 3.5-5.1 (BEAKER) (test code = 379) CHLORIDE (BEAKER) 96 meq/L 98-107 L (test code = 382) CO2 (BEAKER) 36 meq/L 22-29 H (test code = 355) BLOOD UREA 57 mg/dL 7-21 H NITROGEN (BEAKER) (test code = 354) CREATININE 1.09 mg/dL 0.57-1.25 (BEAKER) (test code = 358) GLUCOSE RANDOM 130 mg/dL 70-105 H (BEAKER) (test code = 652) CALCIUM (BEAKER) 9.4 mg/dL 8.4-10.2 (test code = 697) EGFR (BEAKER) 51 Interpretatio n of eGFR (test code = mL/min/1.73 values Stage De scription 1092) sq m Result G1 Cecilia l or high >=90 G2 Mildly decreased 60-89 G3a Mildl y to moderately 45-5 9 G3b Moderately to s everely 30-44 G4 Severl y decreased 15-29 G5 Kidney failure <15Reported eGF R is based on the CKD-EPI 2021 equation that d oes not use a race coefficientEsti mated GFR is not as accur ate as Creatinine Susanne kevon in predicting glom erular filtration rate . Estimated GFR is not appl icable for dialysis patien ts Associate Professor Of Mathematics ID - ADMINCBC W/PLT COUNT & AUTO [id number] 05:20:19 Test Item Value Reference Range Interpretation Comments WHITE BLOOD CELL COUNT (BEAKER) 9.7 K/ L 3.5-10.5 (test code = 775) RED BLOOD CELL COUNT (BEAKER) 2.60 M/ L 3.93-5.22 L (test code = 761) HEMOGLOBIN (BEAKER) (test code = 7.8 GM/DL 11.2-15.7 L 410) HEMATOCRIT (BEAKER) (test code = 24.8 % 34.1-44.9 L 411) MEAN CORPUSCULAR VOLUME (BEAKER) 95 fL 79-95 (test code = 753) MEAN CORPUSCULAR HEMOGLOBIN 30.0 pg 25.6-32.2 (BEAKER) (test code = 751) MEAN CORPUSCULAR HEMOGLOBIN CONC 31.5 GM/DL 32.2-35.5 L (BEAKER) (test code = 752) RED CELL DISTRIBUTION WIDTH 16.6 % 11.7-14.4 H (BEAKER) (test code = 412) PLATELET COUNT (BEAKER) (test 257 K/CU MM 150-450 code = 756) MEAN PLATELET VOLUME (BEAKER) 10.1 fL 9.4-12.3 (test code = 754) NUCLEATED RED BLOOD CELLS 0 /100 WBC 0-0 (BEAKER) (test code = 413) NEUTROPHILS RELATIVE PERCENT 73 % (BEAKER) (test code = 429) LYMPHOCYTES RELATIVE PERCENT 12 % (BEAKER) (test code = 430) MONOCYTES RELATIVE PERCENT 14 % (BEAKER) (test code = 431) EOSINOPHILS RELATIVE PERCENT 1 % (BEAKER) (test code = 432) BASOPHILS RELATIVE PERCENT 0 % (BEAKER) (test code = 437) NEUTROPHILS ABSOLUTE COUNT 7.07 K/ L 1.56-6.13 H (BEAKER) (test code = 670) LYMPHOCYTES ABSOLUTE COUNT 1.13 K/ L 1.18-3.74 L (BEAKER) (test code = 414) MONOCYTES ABSOLUTE COUNT (BEAKER) 1.35 K/ L 0.24-0.36 H (test code = 415) EOSINOPHILS ABSOLUTE COUNT 0.07 K/ L 0.04-0.36 (BEAKER) (test code = 416) BASOPHILS ABSOLUTE COUNT (BEAKER) 0.02 K/ L 0.01-0.08 (test code = 417) IMMATURE GRANULOCYTES-RELATIVE 0.70 % 0.00-1.00 PERCENT (BEAKER) (test code = 2801) POCT-GLUCOSE [id number] 21:42:09 Test Item Value Reference Range Interpretation Comments POC-GLUCOSE METER 160 mg/dL 70-110 H : TESTED A T [facility] 6720 (BEAKER) (test code = [place], 1538) [address]: Associate Professor Of Mathematics/Techni wendi ID = [id number] for ELKE FOWLER BASIC METABOLIC [id number] 21:25:43 Test Item Value Reference Range Interpretation Comments SODIUM (BEAKER) 139 meq/L 136-145 (test code = 381) POTASSIUM 4.4 meq/L 3.5-5.1 (BEAKER) (test code = 379) CHLORIDE (BEAKER) 96 meq/L 98-107 L (test code = 382) CO2 (BEAKER) 35 meq/L 22-29 H (test code = 355) BLOOD UREA 61 mg/dL 7-21 H NITROGEN (BEAKER) (test code = 354) CREATININE 1.17 mg/dL 0.57-1.25 (BEAKER) (test code = 358) GLUCOSE RANDOM 159 mg/dL 70-105 H (BEAKER) (test code = 652) CALCIUM (BEAKER) 9.7 mg/dL 8.4-10.2 (test code = 697) EGFR (BEAKER) 47 Interpretatio n of eGFR (test code = mL/min/1.73 values Stage De scription 1092) sq m Result G1 Cecilia l or high >=90 G2 Mildly decreased 60-89 G3a Mildl y to moderately 45-5 9 G3b Moderately to s everely 30-44 G4 Severl y decreased 15-29 G5 Kidney failure <15Reported eGF R is based on the CKD-EPI 2020 equation that d oes not use a race coefficientEsti mated GFR is not as accur ate as Creatinine Susanne kevon in predicting glom erular filtration rate . Estimated GFR is not appl icable for dialysis patien ts Associate Professor Of Mathematics ID - ADMINPOCT-GLUCOSE [id number] 18:33:15 Test Item Value Reference Range Interpretation Comments POC-GLUCOSE METER 141 mg/dL 70-110 H : TESTED A T [facility] 6720 (BEAKER) (test code = [place], 1538) [address]: Associate Professor Of Mathematics/Techni wendi ID = [id number] for Iv ey (contract), [employer] BLOOD [id number] 17:00:55 Test Item Value Reference Range Interpretation Comments CULTURE (BEAKER) (test No growth in 5 days code = 1095) BLOOD [id number] 16:01:01 Test Item Value Reference Range Interpretation Comments CULTURE (BEAKER) (test No growth in 5 days code = 1095) The specimen volume collected for this blood culture was below the optimum (10 mL per bottle or 20 mL total). Use of lower volumes may adversely affect recovery and/or detection times of some organisms.BASIC METABOLIC PANEL 2022-08-01 12:32:22 Test Item Value Reference Range Interpretation Comments SODIUM (BEAKER) 141 meq/L 136-145 (test code = 381) POTASSIUM 4.2 meq/L 3.5-5.1 (BEAKER) (test code = 379) CHLORIDE (BEAKER) 100 meq/L 98-107 (test code = 382) CO2 (BEAKER) 32 meq/L 22-29 H (test code = 355) BLOOD UREA 63 mg/dL 7-21 H NITROGEN (BEAKER) (test code = 354) CREATININE 1.14 mg/dL 0.57-1.25 (BEAKER) (test code = 358) GLUCOSE RANDOM 146 mg/dL 70-105 H (BEAKER) (test code = 652) CALCIUM (BEAKER) 9.0 mg/dL 8.4-10.2 (test code = 697) EGFR (BEAKER) 48 Interpretatio n of eGFR (test code = mL/min/1.73 values Stage De scription 1092) sq m Result G1 Cecilia l or high >=90 G2 Mildly decreased 60-89 G3a Mildl y to moderately 45-5 9 G3b Moderately to s everely 30-44 G4 Severl y decreased 15-29 G5 Kidney failure <15Reported eGF R is based on the CKD-EPI 2020 equation that d oes not use a race coefficientEsti mated GFR is not as accur ate as Creatinine Susanne kevon in predicting glom erular filtration rate . Estimated GFR is not appl icable for dialysis patien ts Associate Professor Of Mathematics ID - BRYCE WRAD, CHEST, 1 VIEW, NON [id number] 10:20:00Reason for exam:->s/p ACBShould this be performed at the bedside?->Yes [facility] 1940 Sex: FFINAL REPORT EXAMINATION: RAD, CHEST, 1 VIEW, NON DEPT INDICATION: Postoperative COMPARISON: Chest radiograph of the prior day FINDINGS: LINES/TUBES: EKG leads overlie the chest. LUNGS: Stable lung volumes and left greater than right airspace opacities. PLEURA: Stable left pleural effusion. No pneumothorax. MEDIASTINUM: The cardiomediastinal silhouette appears unchanged in size andshape. BONES/SOFT TISSUES:No acute osseous injury. Sternotomy wires unchanged. ABDOMEN:No free air under the diaphragm. IMPRESSION: No significant interval change. Signed: Raul Branhamepcole VerifiedDate/Time: 08/01/2022 10:20:55 POCT- GLUCOSE [id number] 07:50:01 Test Item Value Reference Range Interpretation Comments POC-GLUCOSE METER 134 mg/dL 70-110 H : Notified RN/: (BEAKER) (test code = TESTED AT [facility] 9427 9558) [place], [address]: Associate Professor Of Mathematics/Techni wendi ID = [id number] for Mo rris, [employer] CALCIUM, [id number] 06:05:38 Test Item Value Reference Range Interpretation Comments CALCIUM IONIZED (BEAKER) (test 1.22 mmol/L 1.12-1.27 code = 698) PH, BLOOD (BEAKER) (test code = 7.35 1810) [id number] 05:30:31 Test Item Value Reference Range Interpretation Comments PHOSPHORUS (BEAKER) (test code = 3.3 mg/dL 2.3-4.7 604) Associate Professor Of Mathematics ID - SHEKHAR WCOMPREHENSIVE METABOLIC [id number] 05:30:30 Test Item Value Reference Range Interpretation Comments TOTAL PROTEIN 5.8 gm/dL 6.0-8.3 L (BEAKER) (test code = 770) ALBUMIN (BEAKER) 3.3 g/dL 3.5-5.0 L (test code = 1145) ALKALINE 69 U/L 40-150 PHOSPHATASE (BEAKER) (test code = 346) BILIRUBIN TOTAL 0.7 mg/dL 0.2-1.2 (BEAKER) (test code = 377) SODIUM (BEAKER) 138 meq/L 136-145 (test code = 381) POTASSIUM (BEAKER) 4.5 meq/L 3.5-5.1 (test code = 379) CHLORIDE (BEAKER) 98 meq/L 98-107 (test code = 382) CO2 (BEAKER) (test 32 meq/L 22-29 H code = 355) BLOOD UREA 57 mg/dL 7-21 H NITROGEN (BEAKER) (test code = 354) CREATININE 1.26 mg/dL 0.57-1.25 H (BEAKER) (test code = 358) GLUCOSE RANDOM 141 mg/dL 70-105 H (BEAKER) (test code = 652) CALCIUM (BEAKER) 9.5 mg/dL 8.4-10.2 (test code = 697) AST (SGOT) 25 U/L 5-34 (BEAKER) (test code = 353) ALT (SGPT) 12 U/L 6-55 (BEAKER) (test code = 347) EGFR (BEAKER) 43 Interpretatio n of eGFR (test code = 1092) mL/min/1.[address] age Description sq m Result G1 Cecilia l or high >=90 G2 Mildly decreased 60-89 G3a Mildl y to moderately 45-5 9 G3b Moderately to s everely 30-44 G4 Severl y decreased 15-29 G5 Kidney failure <15Reported eGF R is based on the CKD-EPI 2020 equation that d oes not use a race coefficientEsti mated GFR is not as accur ate as Creatinine Susanne kevon in predicting glom erular filtration rate . Estimated GFR is not appl icable for dialysis patien ts Associate Professor Of Mathematics ID Kelly CORRIGAN [id number] 05:30:30 Test Item Value Reference Range Interpretation Comments MAGNESIUM (BEAKER) (test code = 2.2 mg/dL 1.6-2.6 627) Associate Professor Of Mathematics ID Kelly CORRIGAN WCBC W/PLT COUNT & AUTO [id number] 04:52:33 Test Item Value Reference Range Interpretation Comments WHITE BLOOD CELL COUNT (BEAKER) 11.4 K/ L 3.5-10.5 H (test code = 775) RED BLOOD CELL COUNT (BEAKER) 2.67 M/ L 3.93-5.22 L (test code = 761) HEMOGLOBIN (BEAKER) (test code = 8.1 GM/DL 11.2-15.7 L 410) HEMATOCRIT (BEAKER) (test code = 25.6 % 34.1-44.9 L 411) MEAN CORPUSCULAR VOLUME (BEAKER) 96 fL 79-95 H (test code = 753) MEAN CORPUSCULAR HEMOGLOBIN 30.3 pg 25.6-32.2 (BEAKER) (test code = 751) MEAN CORPUSCULAR HEMOGLOBIN CONC 31.6 GM/DL 32.2-35.5 L (BEAKER) (test code = 752) RED CELL DISTRIBUTION WIDTH 16.4 % 11.7-14.4 H (BEAKER) (test code = 412) PLATELET COUNT (BEAKER) (test 271 K/CU MM 150-450 code = 756) MEAN PLATELET VOLUME (BEAKER) 9.9 fL 9.4-12.3 (test code = 754) NUCLEATED RED BLOOD CELLS 0 /100 WBC 0-0 (BEAKER) (test code = 413) NEUTROPHILS RELATIVE PERCENT 78 % (BEAKER) (test code = 429) LYMPHOCYTES RELATIVE PERCENT 9 % (BEAKER) (test code = 430) MONOCYTES RELATIVE PERCENT 12 % (BEAKER) (test code = 431) EOSINOPHILS RELATIVE PERCENT 0 % (BEAKER) (test code = 432) BASOPHILS RELATIVE PERCENT 0 % (BEAKER) (test code = 437) NEUTROPHILS ABSOLUTE COUNT 8.90 K/ L 1.56-6.13 H (BEAKER) (test code = 670) LYMPHOCYTES ABSOLUTE COUNT 1.06 K/ L 1.18-3.74 L (BEAKER) (test code = 414) MONOCYTES ABSOLUTE COUNT (BEAKER) 1.31 K/ L 0.24-0.36 H (test code = 415) EOSINOPHILS ABSOLUTE COUNT 0.04 K/ L 0.04-0.36 (BEAKER) (test code = 416) BASOPHILS ABSOLUTE COUNT (BEAKER) 0.01 K/ L 0.01-0.08 (test code = 417) IMMATURE GRANULOCYTES-RELATIVE 0.80 % 0.00-1.00 PERCENT (BEAKER) (test code = 2801) POCT-GLUCOSE [id number] 21:47:48 Test Item Value Reference Range Interpretation Comments POC-GLUCOSE METER 181 mg/dL 70-110 H : TESTED A T [facility] 6720 (BEAKER) (test code = [place], 1538) [address]: Associate Professor Of Mathematics/Techni wendi ID = [id number] for DO RIVASYUMIKO PLATA BASIC METABOLIC [id number] 20:48:42 Test Item Value Reference Range Interpretation Comments SODIUM (BEAKER) 136 meq/L 136-145 (test code = 381) POTASSIUM 4.5 meq/L 3.5-5.1 (BEAKER) (test code = 379) CHLORIDE (BEAKER) 97 meq/L 98-107 L (test code = 382) CO2 (BEAKER) 30 meq/L 22-29 H (test code = 355) BLOOD UREA 63 mg/dL 7-21 H NITROGEN (BEAKER) (test code = 354) CREATININE 1.41 mg/dL 0.57-1.25 H (BEAKER) (test code = 358) GLUCOSE RANDOM 196 mg/dL 70-105 H (BEAKER) (test code = 652) CALCIUM (BEAKER) 9.5 mg/dL 8.4-10.2 (test code = 697) EGFR (BEAKER) 37 Interpretati on of eGFR (test code = mL/min/1.73 values Stage De scription 1092) sq m Result G1 Cecilia l or high >=90 G2 Mildly decreased 60-89 G3a Mildl y to moderately 45-5 9 G3b Moderately to s everely 30-44 G4 Severl y decreased 15-29 G5 Kidney failure <15Reported eGF R is based on the CKD-EPI 2020 equation that d oes not use a race coefficientEsti mated GFR is not as accur ate as Creatinine Susanne kevon in predicting glom erular filtration rate . Estimated GFR is not appl icable for dialysis patien ts Associate Professor Of Mathematics ID - BSPOCT-GLUCOSE [id number] 16:44:00 Test Item Value Reference Range Interpretation Comments POC-GLUCOSE METER 148 mg/dL 70-110 H : TESTED A T [facility] (BEAKER) (test code = [facility] [place], 1538) [address]: Associate Professor Of Mathematics/Techni wendi ID = [id number] for Buck as (contract), Alanis lozada BASIC METABOLIC [id number] 12:42:35 Test Item Value Reference Range Interpretation Comments SODIUM (BEAKER) 132 meq/L 136-145 L (test code = 381) POTASSIUM 4.5 meq/L 3.5-5.1 (BEAKER) (test code = 379) CHLORIDE (BEAKER) 97 meq/L 98-107 L (test code = 382) CO2 (BEAKER) 28 meq/L 22-29 (test code = 355) BLOOD UREA 52 mg/dL 7-21 H NITROGEN (BEAKER) (test code = 354) CREATININE 1.44 mg/dL 0.57-1.25 H (BEAKER) (test code = 358) GLUCOSE RANDOM 136 mg/dL 70-105 H (BEAKER) (test code = 652) CALCIUM (BEAKER) 9.2 mg/dL 8.4-10.2 (test code = 697) EGFR (BEAKER) 37 Interpretatio n of eGFR (test code = mL/min/1.73 values Stage De scription 1092) sq m Result G1 Cecilia l or high >=90 G2 Mildly decreased 60-89 G3a Mildl y to moderately 45-5 9 G3b Moderately to s everely 30-44 G4 Severl y decreased 15-29 G5 Kidney failure <15Reported eGF R is based on the CKD-EPI 2020 equation that d oes not use a race coefficientEsti mated GFR is not as accur ate as Creatinine Susanne kevon in predicting glom erular filtration rate . Estimated GFR is not appl icable for dialysis patien ts Associate Professor Of Mathematics ID - SHEKHAR WPOCT-GLUCOSE [id number] 12:22:37 Test Item Value Reference Range Interpretation Comments POC-GLUCOSE METER 144 mg/dL 70-110 H : TESTED A T [facility] 6720 (JUAN F) (test code = [place] [facility], 1538) [address]: Associate Professor Of Mathematics/Techni wendi ID = [id number] for as (contract), Alanis lozada RAD, CHEST, 1 VIEW, NON [id number] 10:05:00Reason for exam:->s/p ACBShould this be performed at the bedside?->Yes [facility] 1940 Sex: FFINAL REPORT RAD, CHEST, 1 VIEW, NON DEPT INDICATION: s/p ACB COMPARISON: Prior day's exam TECHNIQUE: Portable frontal view of the chest. FINDINGS: Support Lines and Devices: None Lungs and pleura: Unchanged airspace and pleural opacities. No pneumothorax identified. Heart and mediastinum: Stable contours. Stable surgical changes. Additional findings: None. IMPRESSION: 1.Moderate left pleural effusion, similar to prior exam.2.Bilateral airspace and interstitial opacities, similar to prior exam, which may represent atelectasis, pneumonia or pulmonary edema. Signed: Javi Hutson MDReport Verified Date/Time: 07/31/2022 10:05:35 Reading Location: [address] Reading Room CBC W/PLT COUNT & AUTO [id number] 07:34:30 Test Item Value Reference Range Interpretation Comments WHITE BLOOD CELL COUNT (BEAKER) 14.5 K/ L 3.5-10.5 H (test code = 775) RED BLOOD CELL COUNT (BEAKER) 2.46 M/ L 3.93-5.22 L (test code = 761) HEMOGLOBIN (BEAKER) (test code = 7.4 GM/DL 11.2-15.7 L 410) HEMATOCRIT (BEAKER) (test code = 23.3 % 34.1-44.9 L 411) MEAN CORPUSCULAR VOLUME (BEAKER) 95 fL 79-95 (test code = 753) MEAN CORPUSCULAR HEMOGLOBIN 30.1 pg 25.6-32.2 (BEAKER) (test code = 751) MEAN CORPUSCULAR HEMOGLOBIN CONC 31.8 GM/DL 32.2-35.5 L (BEAKER) (test code = 752) RED CELL DISTRIBUTION WIDTH 16.0 % 11.7-14.4 H (BEAKER) (test code = 412) PLATELET COUNT (BEAKER) (test 247 K/CU MM 150-450 code = 756) MEAN PLATELET VOLUME (BEAKER) 9.8 fL 9.4-12.3 (test code = 754) NUCLEATED RED BLOOD CELLS 0 /100 WBC 0-0 (BEAKER) (test code = 413) (CELLAVISION MANUAL DIFF)2022-07-31 07:34:30 Test Item Value Reference Range Interpretation Comments NEUTROPHILS - REL 88 % (CELLAVISION)(BEAKER) (test code = 2816) LYMPHOCYTES - REL 7 % (CELLAVISION)(BEAKER) (test code = 2817) MONOCYTES - REL 5 % (CELLAVISION)(BEAKER) (test code = 2818) NEUTROPHILS - ABS 12.76 K/ul 1.56-6.13 H (CELLAVISION)(BEAKER) (test code = 2830) LYMPHOCYTES - ABS 1.02 K/ul 1.18-3.74 L (CELLAVISION)(BEAKER) (test code = 2831) MONOCYTES - ABS 0.73 K/uL 0.24-0.36 H (CELLAVISION)(BEAKER) (test code = 2832) TOTAL COUNTED (BEAKER) (test code 100 = 1351) PLT MORPHOLOGY (BEAKER) (test code Normal = 486) SMUDGE CELLS (BEAKER) (test code = Present 1371) POLYCHROMATOPHILLIC RBCS(BEAKER) 1+ few (test code = 478) ANISOCYTOSIS (BEAKER) (test code = 1+ few 961) MICROCYTES (BEAKER) (test code = 1+ few 965) POIKILOCYTES (BEAKER) (test code = 1+ few 966) OVALOCYTES (BEAKER) (test code = 1+ few 477) BASOPHILIC STIPPLING (BEAKER) Present (test code = 473) PLATELET CONCENTRATION Adequate (CELLAVISION)(BEAKER) (test code = 3438) Associate Professor Of Mathematics ID - Jason Estrada comments: Slide comments:POCT-GLUCOSE METER 2022-07-31 06:26:47 Test Item Value Reference Range Interpretation Comments POC-GLUCOSE METER 133 mg/dL 70-110 H : TESTED A T [facility] 6720 (BEAKER) (test code = [place], 1538) [address]: Associate Professor Of Mathematics/Techni wendi ID = [id number] for Saira bailey (contract) [facility] COMPREHENSIVE METABOLIC [id number] 03:38:22 Test Item Value Reference Range Interpretation Comments TOTAL PROTEIN 5.8 gm/dL 6.0-8.3 L (BEAKER) (test code = 770) ALBUMIN (BEAKER) 3.4 g/dL 3.5-5.0 L (test code = 1145) ALKALINE 73 U/L 40-150 PHOSPHATASE (BEAKER) (test code = 346) BILIRUBIN TOTAL 0.5 mg/dL 0.2-1.2 (BEAKER) (test code = 377) SODIUM (BEAKER) 133 meq/L 136-145 L (test code = 381) POTASSIUM (BEAKER) 4.6 meq/L 3.5-5.1 (test code = 379) CHLORIDE (BEAKER) 97 meq/L 98-107 L (test code = 382) CO2 (BEAKER) (test 27 meq/L 22-29 code = 355) BLOOD UREA 54 mg/dL 7-21 H NITROGEN (BEAKER) (test code = 354) CREATININE 1.73 mg/dL 0.57-1.25 H (BEAKER) (test code = 358) GLUCOSE RANDOM 135 mg/dL 70-105 H (BEAKER) (test code = 652) CALCIUM (BEAKER) 9.0 mg/dL 8.4-10.2 (test code = 697) AST (SGOT) 30 U/L 5-34 (BEAKER) (test code = 353) ALT (SGPT) 13 U/L 6-55 (BEAKER) (test code = 347) EGFR (BEAKER) 29 Interpretatio n of eGFR (test code = 1092) mL/min/1.73 values S tage Description sq m Result G1 Cecilia l or high >=90 G2 Mildly decreased 60-89 G3a Mildl y to moderately 45-5 9 G3b Moderately to s everely 30-44 G4 Severl y decreased 15-29 G5 Kidney failure <15Reported eGF R is based on the CKD-EPI 2021 equation that d oes not use a race coefficientEsti mated GFR is not as accur ate as Creatinine Susanne kevon in predicting glom erular filtration rate . Estimated GFR is not appl icable for dialysis patien ts Associate Professor Of Mathematics ID - MARIO [id number] 03:36:21 Test Item Value Reference Range Interpretation Comments MAGNESIUM (BEAKER) (test code = 2.4 mg/dL 1.6-2.6 627) Associate Professor Of Mathematics ID - MARIO [id number] 03:36:21 Test Item Value Reference Range Interpretation Comments PHOSPHORUS (BEAKER) (test code = 3.9 mg/dL 2.3-4.7 604) Associate Professor Of Mathematics ID - MARIO LCALCIUM, [id number] 02:22:50 Test Item Value Reference Range Interpretation Comments CALCIUM IONIZED (BEAKER) (test 1.19 mmol/L 1.12-1.27 code = 698) PH, BLOOD (BEAKER) (test code = 7.37 1810) Blood gas, [id number] 02:21:49 Test Item Value Reference Range Interpretation Comments pH, Arterial (test code 7.37 7.35-7.45 = 2744-1) pCO2, Arterial (test 52 See_Comment H [Autom ated message] code = 2019-8) The system [facility] generated this result transmit salvador reference range : 35 - 45 mm Hg. The reference range was not used to interpret this result as normal/abnormal . pO2, Arterial (test 118 See_Comment H [Automa salvador message] code = 2703-7) The system [facility] generated this result transmit salvador reference range : 80 - 90 mm Hg. The reference range was not used to interpret this result as normal/abnormal . O2 Sat, Arterial (test 98.1 % 96.0-97.0 H code = 2708-6) HCO3, Arterial (test 29 mmol/L code = 1960-4) Base Excess, Arterial 3.1 mmol/L -2.0-3.0 H (test code = 1925-7) Patient Temperature 37.0 (test code = 8310-5) Lab Interpretation Abnormal (test code = 57623-5) [facility], [id number] 02:21:49 Test Item Value Reference Range Interpretation Comments PH ARTERIAL (BEAKER) (test code = 7.37 7.35-7.45 383) PCO2 ARTERIAL (BEAKER) (test code 52 mm Hg 35-45 H = 384) PO2 ARTERIAL (BEAKER) (test code = 118 mm Hg 80-90 H 385) O2 SATURATION ARTERIAL (BEAKER) 98.1 % 96.0-97.0 H (test code = 386) HCO3 ARTERIAL (BEAKER) (test code 29 mmol/L -29 = 388) BASE EXCESS ARTERIAL (BEAKER) 3.1 mmol/L -2.0-3.0 H (test code = 387) PATIENT TEMPERATURE (BEAKER) (test 37.0 code = 1818) POCT-GLUCOSE [id number] 23:28:01 Test Item Value Reference Range Interpretation Comments POC-GLUCOSE METER 163 mg/dL 70-110 H : TESTED A T [facility] (BEAKER) (test code = [place], 1538) [address]: Associate Professor Of Mathematics/Techni wendi ID = [id number] for YUMIKO SCHAFER POCT-GLUCOSE [id number] 18:07:42 Test Item Value Reference Range Interpretation Comments POC-GLUCOSE METER 160 mg/dL 70-110 H : TESTED A T [facility] 6720 (BEAKER) (test code = HCY[place], 1538) [address]: Associate Professor Of Mathematics/Techni wendi ID = [id number] for Laurence Perales BASIC METABOLIC [id number] 17:07:46 Test Item Value Reference Range Interpretation Comments SODIUM (BEAKER) 131 meq/L 136-145 L (test code = 381) POTASSIUM 4.5 meq/L 3.5-5.1 (BEAKER) (test code = 379) CHLORIDE (BEAKER) 96 meq/L 98-107 L (test code = 382) CO2 (BEAKER) 26 meq/L 22-29 (test code = 355) BLOOD UREA 60 mg/dL 7-21 H NITROGEN (BEAKER) (test code = 354) CREATININE 1.94 mg/dL 0.57-1.25 H (BEAKER) (test code = 358) GLUCOSE RANDOM 160 mg/dL 70-105 H (BEAKER) (test code = 652) CALCIUM (BEAKER) 9.1 mg/dL 8.4-10.2 (test code = 697) EGFR (BEAKER) 26 Interpretatio n of eGFR (test code = mL/min/1.73 values Stage De scription 1092) sq m Result G1 Cecilia l or high >=90 G2 Mildly decreased 60-89 G3a Mildl y to moderately 45-5 9 G3b Moderately to s everely 30-44 G4 Severl y decreased 15-29 G5 Kidney failure <15Reported eGF R is based on the CKD-EPI 2021 equation that d oes not use a race coefficientEsti mated GFR is not as accur ate as Creatinine Susanne kevon in predicting glom erular filtration rate . Estimated GFR is not appl icable for dialysis patien ts Associate Professor Of Mathematics ID - FSEPotassium, random [id number] 16:50:38 Test Item Value Reference Range Interpretation Comments Potassium Urine 11.7 meq/L (test code = 2828-2) JANEEN (test code = Reference Range: No JANEEN) NormalsOperator ID - BS [facility] CenterSodium, random [id number] 16:50:38 Test Item Value Reference Range Interpretation Comments Sodium Urine (test 34 meq/L code = 2955-3) JNAEEN (test code = Reference Range: No JANEEN) NormalsOperator ID - BS [facility] CenterPOTASSIUM, RANDOM [id number] 16:50:38 Test Item Value Reference Range Interpretation Comments POTASSIUM URINE (BEAKER) (test 11.7 meq/L code = 195) Reference Range: No NormalsOperator ID - BSSODIUM, RANDOM [id number] 16:50:38 Test Item Value Reference Range Interpretation Comments SODIUM URINE (BEAKER) (test code = 34 meq/L 243) Reference Range: No NormalsOperator ID - BSChloride, random [id number] 16:50:37 Test Item Value Reference Range Interpretation Comments Chloride, Urine (test 53 meq/L 20330 code = 81244-1) JANEEN (test code = JANEEN) Reference Range: No NormalsOperator ID - BS Lab Interpretation Normal (test code = 25294-6) [facility] CenterCHLORIDE, RANDOM [id number] 16:50:37 Test Item Value Reference Range Interpretation Comments CHLORIDE URINE (BEAKER) (test code = 53 meq/L 20330 682) Reference Range: No NormalsOperator ID - BSOsmolality, [id number] 16:44:44 Test Item Value Reference Range Interpretation Comments Osmolality, Ur (test code 225 See_Comment [ Automated message] = 2695-5) The system [employer] generated this result transmitted ref erence range: 50-1,200 mOsm/kg mOsm/kg . The reference range was not used to int erpret this result as normal/abnormal . Lab Interpretation (test Normal code = 30246-0) [facility] CenterOSMOLALITY, [id number] 16:44:44 Test Item Value Reference Range Interpretation Comments OSMOLALITY URINE 225 mOsm/kg See_Comment [Automated message] (BEAKER) (test code = The stem which 614) generated this result transmitted ref erence range: 50-1,200 mOsm/kg. The reference range was not used to int erpret this result as normal/abnormal . BLOOD GAS, [id number] 12:43:26 Test Item Value Reference Range Interpretation Comments PH ARTERIAL (BEAKER) (test code = 7.35 7.35-7.45 383) PCO2 ARTERIAL (BEAKER) (test code 51 mm Hg 35-45 H = 384) PO2 ARTERIAL (BEAKER) (test code = 142 mm Hg 80-90 H 385) O2 SATURATION ARTERIAL (BEAKER) 98.7 % 96.0-97.0 H (test code = 386) HCO3 ARTERIAL (BEAKER) (test code 28 mmol/L 21-29 = 388) BASE EXCESS ARTERIAL (BEAKER) 1.4 mmol/L -2.0-3.0 (test code = 387) PATIENT TEMPERATURE (BEAKER) (test 36.8 code = 1818) FIO2 (BEAKER) (test code = 1819) 32.0 POCT-GLUCOSE [id number] 12:01:02 Test Item Value Reference Range Interpretation Comments POC-GLUCOSE METER 194 mg/dL 70-110 H : TESTED A T [facility] [address] (BEAKER) (test code = [place], [address]38) [address]: Associate Professor Of Mathematics/Techni wendi ID = [id number] for Buck bravo (contract)Alanis OSMOLALITY, [id number] 10:31:45 Test Item Value Reference Range Interpretation Comments OSMOLALITY, SERUM (BEAKER) (test 289 mOsm/kg 275-295 code = 615) RAD, CHEST, 1 VIEW, NON [id number] 09:41:00Reason for exam:->s/p ACBShould this be performed at the bedside?->Yes [facility] : 1940 Sex: FFINAL REPORT RAD, CHEST, 1 VIEW, NON DEPT INDICATION: s/p ACB COMPARISON: Prior day's exam TECHNIQUE: Portable frontal view of the chest. FINDINGS: Support Lines and Devices: Stable. Lungs and pleura: Unchanged airspace and pleural opacities. No pneumothorax identified. Heart and medi astinum: Stable contours. Stable surgical changes. Additional findings: None. IMPRESSION: 1.No significant change from prior exam.2. Moderate left-sided pleural effusion.3.Bilateral airspace and interstitial opacities, which may represent atelectasis, pneumonia or pulmonary edema. Signed: Javi Hutsonepcole Verified Date/Time: 07/30/2022 09:41:23 Reading Location: [address] Reading Room BASIC METABOLIC [id number] 08:13:46 Test Item Value Reference Range Interpretation Comments SODIUM (BEAKER) 127 meq/L 136-145 L (test code = 381) POTASSIUM 4.5 meq/L 3.5-5.1 (BEAKER) (test code = 379) CHLORIDE (BEAKER) 93 meq/L 98-107 L (test code = 382) CO2 (BEAKER) 27 meq/L 22-29 (test code = 355) BLOOD UREA 51 mg/dL 7-21 H NITROGEN (BEAKER) (test code = 354) CREATININE 2.22 mg/dL 0.57-1.25 H (BEAKER) (test code = 358) GLUCOSE RANDOM 147 mg/dL 70-105 H (BEAKER) (test code = 652) CALCIUM (BEAKER) 8.6 mg/dL 8.4-10.2 (test code = 697) EGFR (BEAKER) 22 Interpretatio n of eGFR (test code = mL/min/1.73 values Stage De scription 1092) sq m Result G1 Cecilia l or high >=90 G2 Mildly decreased 60-89 G3a Mildl y to moderately 45-5 9 G3b Moderately to s everely 30-44 G4 Severl y decreased 15-29 G5 Kidney failure <15Reported eGF R is based on the CKD-EPI 2020 equation that d oes not use a race coefficientEsti mated GFR is not as accur ate as Creatinine Susanne lund in predicting glom erular filtration rate . Estimated GFR is not appl icable for dialysis patien ts Associate Professor Of Mathematics ID - SANTI JACKSON GAS, [id number] 07:55:27 Test Item Value Reference Range Interpretation Comments PH ARTERIAL (BEAKER) (test code = 7.33 7.35-7.45 L 383) PCO2 ARTERIAL (BEAKER) (test code 57 mm Hg 35-45 H = 384) PO2 ARTERIAL (BEAKER) (test code = 167 mm Hg 80-90 H 385) O2 SATURATION ARTERIAL (BEAKER) 99.0 % 96.0-97.0 H (test code = 386) HCO3 ARTERIAL (BEAKER) (test code 29 mmol/L 21-29 = 388) BASE EXCESS ARTERIAL (BEAKER) 2.5 mmol/L -2.0-3.0 (test code = 387) PATIENT TEMPERATURE (BEAKER) (test 36.6 code = 1818) FIO2 (BEAKER) (test code = 1819) 50.0 POCT-GLUCOSE [id number] 06:49:40 Test Item Value Reference Range Interpretation Comments POC-GLUCOSE METER 154 mg/dL 70-110 H : TESTED A T [facility] [address] (BEAKER) (test code = [place], [address]38) [address]: Associate Professor Of Mathematics/Techni wendi ID = [id number] for DO December (CELLAVISION MANUAL DIFF)2022-07-30 06:09:56 Test Item Value Reference Range Interpretation Comments NEUTROPHILS - REL 78 % (CELLAVISION)(BEAKER) (test code = 2816) LYMPHOCYTES - REL 8 % (CELLAVISION)(BEAKER) (test code = 2817) MONOCYTES - REL 13 % (CELLAVISION)(BEAKER) (test code = 2818) NEUTROPHILS - ABS 10.30 K/ul 1.56-6.13 H (CELLAVISION)(BEAKER) (test code = 2830) LYMPHOCYTES - ABS 1.06 K/ul 1.18-3.74 L (CELLAVISION)(BEAKER) (test code = 2831) MONOCYTES - ABS 1.72 K/uL 0.24-0.36 H (CELLAVISION)(BEAKER) (test code = 2832) TOTAL COUNTED (BEAKER) (test code 100 = 1351) PLT MORPHOLOGY (BEAKER) (test code Normal = 486) SMUDGE CELLS (BEAKER) (test code = Present 1371) HYPERSEGMENTATION Present (CELLAVISION)(BEAKER) (test code = 3445) POLYCHROMATOPHILLIC RBCS(BEAKER) 1+ few (test code = 478) ANISOCYTOSIS (BEAKER) (test code = 1+ few 961) MICROCYTES (BEAKER) (test code = 1+ few 965) POIKILOCYTES (BEAKER) (test code = 1+ few 966) SPHEROCYTES (BEAKER) (test code = 1+ few 768) BASOPHILIC STIPPLING (BEAKER) Present (test code = 473) ARTIFACT (CELLAVISION)(BEAKER) Present (test code = 3432) HELMET CELLS (CELLAVISION)(BEAKER) 1+ few (test code = 3434) PLATELET CONCENTRATION Adequate (CELLAVISION)(BEAKER) (test code = 3438) Associate Professor Of Mathematics ID - Sowmya comments: Slide comments:CBC W/PLT COUNT & AUTO [id number] 06:09:55 Test Item Value Reference Range Interpretation Comments WHITE BLOOD CELL COUNT (BEAKER) 13.2 K/ L 3.5-10.5 H (test code = 775) RED BLOOD CELL COUNT (BEAKER) 2.47 M/ L 3.93-5.22 L (test code = 761) HEMOGLOBIN (BEAKER) (test code = 7.6 GM/DL 11.2-15.7 L 410) HEMATOCRIT (BEAKER) (test code = 22.7 % 34.1-44.9 L 411) MEAN CORPUSCULAR VOLUME (BEAKER) 92 fL 79-95 (test code = 753) MEAN CORPUSCULAR HEMOGLOBIN 30.8 pg 25.6-32.2 (BEAKER) (test code = 751) MEAN CORPUSCULAR HEMOGLOBIN CONC 33.5 GM/DL 32.2-35.5 (BEAKER) (test code = 752) RED CELL DISTRIBUTION WIDTH 16.2 % 11.7-14.4 H (BEAKER) (test code = 412) PLATELET COUNT (BEAKER) (test 253 K/CU MM 150-450 code = 756) MEAN PLATELET VOLUME (BEAKER) 10.0 fL 9.4-12.3 (test code = 754) NUCLEATED RED BLOOD CELLS 1 /100 WBC 0-0 H (BEAKER) (test code = 413) [id number] 04:27:46 Test Item Value Reference Range Interpretation Comments PHOSPHORUS (BEAKER) (test code = 4.7 mg/dL 2.3-4.7 604) Associate Professor Of Mathematics ID - SANTI [id number] 04:27:45 Test Item Value Reference Range Interpretation Comments MAGNESIUM (BEAKER) (test code = 2.6 mg/dL 1.6-2.6 627) Associate Professor Of Mathematics ID - SANTI MBLOOD GAS, [id number] 03:55:12 Test Item Value Reference Range Interpretation Comments PH ARTERIAL (BEAKER) (test code = 7.29 7.35-7.45 L 383) PCO2 ARTERIAL (BEAKER) (test code 62 mm Hg 35-45 H = 384) PO2 ARTERIAL (BEAKER) (test code = 172 mm Hg 80-90 H 385) O2 SATURATION ARTERIAL (BEAKER) 98.9 % 96.0-97.0 H (test code = 386) HCO3 ARTERIAL (BEAKER) (test code 29 mmol/L 21-29 = 388) BASE EXCESS ARTERIAL (BEAKER) 1.8 mmol/L -2.0-3.0 (test code = 387) PATIENT TEMPERATURE (BEAKER) (test 37.0 code = 1818) FIO2 (BEAKER) (test code = 1819) 21.0 CALCIUM, [id number] 03:54:29 Test Item Value Reference Range Interpretation Comments CALCIUM IONIZED (BEAKER) (test 1.18 mmol/L 1.12-1.27 code = 698) PH, BLOOD (BEAKER) (test code = 7.29 1810) BASIC METABOLIC [id number] 01:02:50 Test Item Value Reference Range Interpretation Comments SODIUM (BEAKER) 127 meq/L 136-145 L (test code = 381) POTASSIUM 4.5 meq/L 3.5-5.1 (BEAKER) (test code = 379) CHLORIDE (BEAKER) 93 meq/L 98-107 L (test code = 382) CO2 (BEAKER) 24 meq/L 22-29 (test code = 355) BLOOD UREA 50 mg/dL 7-21 H NITROGEN (BEAKER) (test code = 354) CREATININE 2.45 mg/dL 0.57-1.25 H (BEAKER) (test code = 358) GLUCOSE RANDOM 147 mg/dL 70-105 H (BEAKER) (test code = 652) CALCIUM (BEAKER) 8.6 mg/dL 8.4-10.2 (test code = 697) EGFR (BEAKER) 19 Interpretatio n of eGFR (test code = mL/min/1.73 values Stage De scription 1092) sq m Result G1 Cecilia l or high >=90 G2 Mildly decreased 60-89 G3a Mildl y to moderately 45-5 9 G3b Moderately to s everely 30-44 G4 Severl y decreased 15-29 G5 Kidney failure <15Reported eGF R is based on the CKD-EPI 2020 equation that d oes not use a race coefficientEsti mated GFR is not as accur ate as Creatinine Susanne kevon in predicting glom erular filtration rate . Estimated GFR is not appl icable for dialysis patien ts Associate Professor Of Mathematics ID - SANTI MPOCT-GLUCOSE [id number] 00:06:32 Test Item Value Reference Range Interpretation Comments POC-GLUCOSE METER 149 mg/dL 70-110 H : TESTED A T [facility] [address] (BEAKER) (test code = ELVI[place]ON[place] Good [facility], 1538) [address]: Associate Professor Of Mathematics/Techni wendi ID = [id number] for DO December BASIC METABOLIC [id number] 17:25:03 Test Item Value Reference Range Interpretation Comments SODIUM (BEAKER) 129 meq/L 136-145 L (test code = 381) POTASSIUM 4.4 meq/L 3.5-5.1 (BEAKER) (test code = 379) CHLORIDE (BEAKER) 95 meq/L 98-107 L (test code = 382) CO2 (BEAKER) 25 meq/L 22-29 (test code = 355) BLOOD UREA 52 mg/dL 7-21 H NITROGEN (BEAKER) (test code = 354) CREATININE 2.65 mg/dL 0.57-1.25 H (BEAKER) (test code = 358) GLUCOSE RANDOM 194 mg/dL 70-105 H (BEAKER) (test code = 652) CALCIUM (JUAN F) 8.8 mg/dL 8.4-10.2 (test code = 697) EGFR (JUAN F) 18 Interpretatio n of eGFR (test code = mL/min/1.73 values Stage De scription 1092) sq m Result G1 Cecilia l or high >=90 G2 Mildly decreased 60-89 G3a Mildl y to moderately 45-5 9 G3b Moderately to s everely 30-44 G4 Severl y decreased 15-29 G5 Kidney failure <15Reported eGF R is based on the CKD-EPI 2020 equation that d oes not use a race coefficientEsti mated GFR is not as accur ate as Creatinine Susanne lund in predicting glom erular filtration rate . Estimated GFR is not appl icable for dialysis patien ts Associate Professor Of Mathematics ID - BSPOCT-GLUCOSE [id number] 16:55:07 Test Item Value Reference Range Interpretation Comments POC-GLUCOSE METER 189 mg/dL 70-110 H : TESTED A T [facility] [address] (JUAN F) (test code = CHYNA Good [facility], 1538) [address]: Associate Professor Of Mathematics/Techni wendi ID = [id number] for Gm as (contract), Boi kierra [id number] 12:32:43 Test Item Value Reference Range Interpretation Comments SODIUM (JUAN F) (test code = 381) 127 meq/L 136-145 L Associate Professor Of Mathematics ID - MITCHPOCT-GLUCOSE [id number] 12:12:19 Test Item Value Reference Range Interpretation Comments POC-GLUCOSE METER 97 mg/dL 70-110 : Notified RN/MD: TESTED (JUAN F) (test code = AT [facility] [address] [facility] 1538) [facility], [address]: Associate Professor Of Mathematics/Techni wendi ID = [id number] for Morr is, Umu RAD, CHEST, 1 VIEW, NON [id number] 09:22:00Reason for exam:->f/u [facility] 1940 Sex: FFINAL REPORT RAD, CHEST, 1 VIEW, NON DEPT INDICATION: f/u effusion COMPARISON: Prior day's exam TECHNIQUE: Portable frontal view of the chest. FINDINGS: Support Lines and Devices: Stable. Lungs and pleura: Unchanged airspace and pleural opacities. No pneumothorax identified. Heart and mediastinum: Stable contours. Stable surgical changes. Additional findings: The patient is rotatedto the right. IMPRESSION: 1.No significant change from prior exam.2.Moderate left pleural effusion.3.Left retrocardiac opacity, representing singly or in combination pneumonia, atelectasis, or pleural effusion. Signed: Javi Hutson [facility] Verified Date/Time: 07/29/2022 09:22:23 Reading Location: [address] Reading Room BASIC METABOLIC [id number] 06:32:17 Test Item Value Reference Range Interpretation Comments SODIUM (BEAKER) 128 meq/L 136-145 L (test code = 381) POTASSIUM 4.5 meq/L 3.5-5.1 (BEAKER) (test code = 379) CHLORIDE (BEAKER) 93 meq/L 98-107 L (test code = 382) CO2 (BEAKER) 23 meq/L 22-29 (test code = 355) BLOOD UREA 53 mg/dL 7-21 H NITROGEN (BEAKER) (test code = 354) CREATININE 2.99 mg/dL 0.57-1.25 H (BEAKER) (test code = 358) GLUCOSE RANDOM 112 mg/dL 70-105 H (BEAKER) (test code = 652) CALCIUM (BEAKER) 8.7 mg/dL 8.4-10.2 (test code = 697) EGFR (BEAKER) 15 Interpretatio n of eGFR (test code = mL/min/1.73 values Stage De scription 1092) sq m Result G1 Cecilia l or high >=90 G2 Mildly decreased 60-89 G3a Mildl y to moderately 45-5 9 G3b Moderately to s everely 30-44 G4 Severl y decreased 15-29 G5 Kidney failure <15Reported eGF R is based on the CKD-EPI 2021 equation that d oes not use a race coefficientEsti mated GFR is not as accur ate as Creatinine Susanne kevon in predicting glom erular filtration rate . Estimated GFR is not appl icable for dialysis patien ts Associate Professor Of Mathematics ID - SANTI MBASIC METABOLIC [id number] 06:27:54 Test Item Value Reference Range Interpretation Comments SODIUM (BEAKER) 128 meq/L 136-145 L (test code = 381) POTASSIUM 4.7 meq/L 3.5-5.1 Specimen slight ly (BEAKER) (test hemolyzed code = 379) CHLORIDE (BEAKER) 94 meq/L 98-107 L (test code = 382) CO2 (BEAKER) 20 meq/L 22-29 L (test code = 355) BLOOD UREA 47 mg/dL 7-21 H NITROGEN (BEAKER) (test code = 354) CREATININE 2.93 mg/dL 0.57-1.25 H Specimen slight ly (BEAKER) (test hemolyzed code = 358) GLUCOSE RANDOM 84 mg/dL 70-105 (BEAKER) (test code = 652) CALCIUM (BEAKER) 8.8 mg/dL 8.4-10.2 (test code = 697) EGFR (BEAKER) 16 Interpretatio n of eGFR (test code = mL/min/1.73 values Stage De scription 1092) sq m Result G1 Cecilia l or high >=90 G2 Mildly decreased 60-89 G3a Mild ly to moderately 45-5 9 G3b Moderately to s everely 30-44 G4 Severl y decreased 15-29 G5 Kidney failure <15Reported eGF R is based on the CKD-EPI 2021 equation that d oes not use a race coefficientEsti mated GFR is not as accur ate as Creatinine Susanne kevon in predicting glom erular filtration rate . Estimated GFR is not appl icable for dialysis patien ts Associate Professor Of Mathematics ID - ADMINPOCT-GLUCOSE [id number] 05:57:53 Test Item Value Reference Range Interpretation Comments POC-GLUCOSE METER 101 mg/dL 70-110 : TESTED A T [facility] [address] (BEAKER) (test code = [place], 1538) [address]: Associate Professor Of Mathematics/Techni wendi ID = [id number] for DO SOSADecember [id number] 03:35:24 Test Item Value Reference Range Interpretation Comments MAGNESIUM (BEAKER) 3.0 mg/dL 1.6-2.6 H Specimen slightly (test code = 627) hemolyzed Associate Professor Of Mathematics ID - [id number] 03:35:24 Test Item Value Reference Range Interpretation Comments PHOSPHORUS (BEAKER) 4.6 mg/dL 2.3-4.7 Specimen slightly (test code = 604) hemolyzed Associate Professor Of Mathematics ID - ADMINCBC W/PLT COUNT & AUTO [id number] 03:11:24 Test Item Value Reference Range Interpretation Comments WHITE BLOOD CELL COUNT (BEAKER) 15.6 K/ L 3.5-10.5 H (test code = 775) RED BLOOD CELL COUNT (BEAKER) 2.59 M/ L 3.93-5.22 L (test code = 761) HEMOGLOBIN (BEAKER) (test code = 7.8 GM/DL 11.2-15.7 L 410) HEMATOCRIT (BEAKER) (test code = 23.7 % 34.1-44.9 L 411) MEAN CORPUSCULAR VOLUME (BEAKER) 92 fL 79-95 (test code = 753) MEAN CORPUSCULAR HEMOGLOBIN 30.1 pg 25.6-32.2 (BEAKER) (test code = 751) MEAN CORPUSCULAR HEMOGLOBIN CONC 32.9 GM/DL 32.2-35.5 (BEAKER) (test code = 752) RED CELL DISTRIBUTION WIDTH 16.5 % 11.7-14.4 H (BEAKER) (test code = 412) PLATELET COUNT (BEAKER) (test 264 K/CU MM 150-450 code = 756) MEAN PLATELET VOLUME (BEAKER) 10.0 fL 9.4-12.3 (test code = 754) NUCLEATED RED BLOOD CELLS 1 /100 WBC 0-0 H (BEAKER) (test code = 413) NEUTROPHILS RELATIVE PERCENT 85 % (BEAKER) (test code = 429) LYMPHOCYTES RELATIVE PERCENT 6 % (BEAKER) (test code = 430) MONOCYTES RELATIVE PERCENT 9 % (BEAKER) (test code = 431) EOSINOPHILS RELATIVE PERCENT 0 % (BEAKER) (test code = 432) BASOPHILS RELATIVE PERCENT 0 % (BEAKER) (test code = 437) NEUTROPHILS ABSOLUTE COUNT 13.17 K/ L 1.56-6.13 H (BEAKER) (test code = 670) LYMPHOCYTES ABSOLUTE COUNT 0.87 K/ L 1.18-3.74 L (BEAKER) (test code = 414) MONOCYTES ABSOLUTE COUNT (BEAKER) 1.34 K/ L 0.24-0.36 H (test code = 415) EOSINOPHILS ABSOLUTE COUNT 0.01 K/ L 0.04-0.36 L (BEAKER) (test code = 416) BASOPHILS ABSOLUTE COUNT (BEAKER) 0.02 K/ L 0.01-0.08 (test code = 417) IMMATURE GRANULOCYTES-RELATIVE 1.00 % 0.00-1.00 PERCENT (BEAKER) (test code = 2801) BLOOD GAS, [id number] 03:10:06 Test Item Value Reference Range Interpretation Comments PH ARTERIAL (BEAKER) (test code = 7.39 7.35-7.45 383) PCO2 ARTERIAL (BEAKER) (test code 41 mm Hg 35-45 = 384) PO2 ARTERIAL (BEAKER) (test code 101 mm Hg 80-90 H = 385) O2 SATURATION ARTERIAL (BEAKER) 97.6 % 96.0-97.0 H (test code = 386) HCO3 ARTERIAL (BEAKER) (test code 24 mmol/L 21-29 = 388) BASE EXCESS ARTERIAL (BEAKER) -0.7 mmol/L -2.0-3.0 (test code = 387) PATIENT TEMPERATURE (BEAKER) 37.0 (test code = 1818) FIO2 (BEAKER) (test code = 1819) 21.0 CALCIUM, [id number] 03:09:16 Test Item Value Reference Range Interpretation Comments CALCIUM IONIZED (BEAKER) (test 1.14 mmol/L 1.12-1.27 code = 698) PH, BLOOD (BEAKER) (test code = 7.39 1810) BASIC METABOLIC [id number] 01:15:27 Test Item Value Reference Range Interpretation Comments SODIUM (BEAKER) 125 meq/L 136-145 L (test code = 381) POTASSIUM 4.5 meq/L 3.5-5.1 (BEAKER) (test code = 379) CHLORIDE (BEAKER) 92 meq/L 98-107 L (test code = 382) CO2 (BEAKER) 21 meq/L 22-29 L (test code = 355) BLOOD UREA 48 mg/dL 7-21 H NITROGEN (BEAKER) (test code = 354) CREATININE 3.21 mg/dL 0.57-1.25 H (BEAKER) (test code = 358) GLUCOSE RANDOM 98 mg/dL 70-105 (BEAKER) (test code = 652) CALCIUM (BEAKER) 8.6 mg/dL 8.4-10.2 (test code = 697) EGFR (BEAKER) 14 Interpretatio n of eGFR (test code = mL/min/1.73 values Stage De scription 1092) sq m Result G1 Cecilia l or high >=90 G2 Mildly decreased 60-89 G3a Mildl y to moderately 45-5 9 G3b Moderately to s everely 30-44 G4 Severl y decreased 15-29 G5 Kidney failure <15Reported eGF R is based on the CKD-EPI 2020 equation that d oes not use a race coefficientEsti mated GFR is not as accur ate as Creatinine Susanne kevon in predicting glom erular filtration rate . Estimated GFR is not appl icable for dialysis patien ts Associate Professor Of Mathematics ID - SANTI MPOCT-GLUCOSE [id number] 23:15:31 Test Item Value Reference Range Interpretation Comments POC-GLUCOSE METER 128 mg/dL 70-110 H : TESTED A T [facility] 6720 (BEAKER) (test code = [place], 1538) [id number]: Associate Professor Of Mathematics/Techni wendi ID = [id number] for Ena Pittman Glucose-Stat [id number] 21:03:20 Test Item Value Reference Range Interpretation Comments Glucose (test code = 2345-7) 25 mg/dL 70-110 LL Lab Interpretation (test code = Abnormal 48216-3) [facility] [id number] 21:03:20 Test Item Value Reference Range Interpretation Comments GLUCOSE RANDOM (BEAKER) (test code = 25 mg/dL 70-110 LL 652) HGB/HCT (H&H)-Stat [id number] 21:02:04 Test Item Value Reference Range Interpretation Comments Hemoglobin (test code = 8.6 See_Comment L [Au tomated message] 718-7) The system IPXI generated this result transmitted ref erence range: 12.0 - 1 5.0 GM/DL. The refe rence range was not u sed to interpret this result as normal/abnor mal. Hematocrit (test code = 25.0 % 36.0-45.0 L 4544-3) Lab Interpretation (test Abnormal code = 64344-4) [facility] [id number] 21:02:04 Test Item Value Reference Range Interpretation Comments Sodium (test code = 2951-2) 126 meq/L 136-145 L Lab Interpretation (test code = Abnormal 76576-7) [facility] [id number] 21:02:04 Test Item Value Reference Range Interpretation Comments SODIUM (BEAKER) (test code = 381) 126 meq/L 136-145 L HGB/HCT (H&H) - STAT [id number] 21:02:04 Test Item Value Reference Range Interpretation Comments HEMOGLOBIN (BEAKER) (test code = 8.6 GM/DL 12.0-15.0 L 410) HEMATOCRIT (BEAKER) (test code = 25.0 % 36.0-45.0 L 411) BLOOD GAS, [id number] 21:02:03 Test Item Value Reference Range Interpretation Comments PH ARTERIAL (BEAKER) (test code = 7.40 7.35-7.45 383) PCO2 ARTERIAL (BEAKER) (test code 36 mm Hg 35-45 = 384) PO2 ARTERIAL (BEAKER) (test code 115 mm Hg 80-90 H = 385) O2 SATURATION ARTERIAL (BEAKER) 98.2 % 96.0-97.0 H (test code = 386) HCO3 ARTERIAL (BEAKER) (test code 21 mmol/L 21-29 = 388) BASE EXCESS ARTERIAL (BEAKER) -3.2 mmol/L -2.0-3.0 L (test code = 387) PATIENT TEMPERATURE (BEAKER) 37.0 (test code = 1818) FIO2 (BEAKER) (test code = 1819) 21.0 Potassium-Stat [id number] 21:01:43 Test Item Value Reference Range Interpretation Comments Potassium (test code = 2823-3) 4.3 meq/L 3.6-5.5 Lab Interpretation (test code = Normal 59160-0) [facility] [id number] 21:01:43 Test Item Value Reference Range Interpretation Comments POTASSIUM (BEAKER) (test code = 4.3 meq/L 3.6-5.5 379) SODIUM NA-STAT [id number] 18:15:31 Test Item Value Reference Range Interpretation Comments SODIUM (BEAKER) (test code = 381) 126 meq/L 136-145 L POTASSIUM-STAT [id number] 18:15:20 Test Item Value Reference Range Interpretation Comments POTASSIUM (BEAKER) (test code = 4.5 meq/L 3.6-5.5 379) HGB/HCT (H&H) - STAT [id number] 18:15:05 Test Item Value Reference Range Interpretation Comments HEMOGLOBIN (BEAKER) (test code = 8.9 GM/DL 12.0-15.0 L 410) HEMATOCRIT (BEAKER) (test code = 26.0 % 36.0-45.0 L 411) GLUCOSE-STAT [id number] 18:14:43 Test Item Value Reference Range Interpretation Comments GLUCOSE RANDOM (BEAKER) (test code = 69 mg/dL 70-110 L 652) BLOOD GAS, [id number] 17:20:38 Test Item Value Reference Range Interpretation Comments PH ARTERIAL (BEAKER) (test code = 7.39 7.35-7.45 383) PCO2 ARTERIAL (BEAKER) (test code 40 mm Hg 35-45 = 384) PO2 ARTERIAL (BEAKER) (test code 92 mm Hg 80-90 H = 385) O2 SATURATION ARTERIAL (BEAKER) 96.9 % 96.0-97.0 (test code = 386) HCO3 ARTERIAL (BEAKER) (test code 24 mmol/L 21-29 = 388) BASE EXCESS ARTERIAL (BEAKER) -1.4 mmol/L -2.0-3.0 (test code = 387) PATIENT TEMPERATURE (BEAKER) 37.0 (test code = 1818) FIO2 (BEAKER) (test code = 1819) 28.0 HGB/HCT (H&H) - STAT [id number] 16:15:55 Test Item Value Reference Range Interpretation Comments HEMOGLOBIN (BEAKER) (test code = 9.6 GM/DL 12.0-15.0 L 410) HEMATOCRIT (BEAKER) (test code = 28.0 % 36.0-45.0 L 411) SODIUM NA-STAT [id number] 16:15:55 Test Item Value Reference Range Interpretation Comments SODIUM (BEAKER) (test code = 381) 126 meq/L 136-145 L BASIC METABOLIC [id number] 16:14:45 Test Item Value Reference Range Interpretation Comments SODIUM (BEAKER) 128 meq/L 136-145 L (test code = 381) POTASSIUM 4.6 meq/L 3.5-5.1 (BEAKER) (test code = 379) CHLORIDE (BEAKER) 94 meq/L 98-107 L (test code = 382) CO2 (BEAKER) 21 meq/L 22-29 L (test code = 355) BLOOD UREA 48 mg/dL 7-21 H NITROGEN (BEAKER) (test code = 354) CREATININE 3.28 mg/dL 0.57-1.25 H (BEAKER) (test code = 358) GLUCOSE RANDOM 70 mg/dL 70-105 (BEAKER) (test code = 652) CALCIUM (BEAKER) 8.7 mg/dL 8.4-10.2 (test code = 697) EGFR (BEAKER) 14 Interpretatio n of eGFR (test code = mL/min/1.73 values Stage De scription 1092) sq m Result G1 Cecilia l or high >=90 G2 Mildly decreased 60-89 G3a Mildl y to moderately 45-5 9 G3b Moderately to s everely 30-44 G4 Sever ly decreased 15-29 G5 Kidney failure <15Repo rted eGFR is based on the CKD-EPI 2020 equation t hat does not use a race coefficientEsti mated GFR is not as accur ate as Creatinine Susanne lund in predicting glom erular filtration rate . Estimated GFR is not appl icable for dialysis patien ts Associate Professor Of Mathematics ID - ADMINBLOOD GAS, [id number] 16:12:37 Test Item Value Reference Range Interpretation Comments PH ARTERIAL (BEAKER) (test code = 7.36 7.35-7.45 383) PCO2 ARTERIAL (BEAKER) (test code 39 mm Hg 35-45 = 384) PO2 ARTERIAL (BEAKER) (test code 82 mm Hg 80-90 = 385) O2 SATURATION ARTERIAL (BEAKER) 95.7 % 96.0-97.0 L (test code = 386) HCO3 ARTERIAL (BEAKER) (test code 22 mmol/L 21-29 = 388) BASE EXCESS ARTERIAL (BEAKER) -3.5 mmol/L -2.0-3.0 L (test code = 387) PATIENT TEMPERATURE (BEAKER) 37.0 (test code = 1818) FIO2 (BEAKER) (test code = 1819) 28.0 GLUCOSE-STAT [id number] 16:08:21 Test Item Value Reference Range Interpretation Comments GLUCOSE RANDOM (BEAKER) (test code = 67 mg/dL 70-110 L 652) POTASSIUM-STAT [id number] 16:08:21 Test Item Value Reference Range Interpretation Comments POTASSIUM (BEAKER) (test code = 4.6 meq/L 3.6-5.5 379) POCT-GLUCOSE [id number] 16:04:33 Test Item Value Reference Range Interpretation Comments POC-GLUCOSE METER 70 mg/dL 70-110 : TESTED A T [facility] 6720 (BEAKER) (test code = [place] [facility], 1538) [address]: Associate Professor Of Mathematics/Techni wendi ID = [id number] for John Cherri BASIC METABOLIC [id number] 13:41:39 Test Item Value Reference Range Interpretation Comments SODIUM (BEAKER) 127 meq/L 136-145 L (test code = 381) POTASSIUM 4.8 meq/L 3.5-5.1 (BEAKER) (test code = 379) CHLORIDE (BEAKER) 93 meq/L 98-107 L (test code = 382) CO2 (BEAKER) 22 meq/L 22-29 (test code = 355) BLOOD UREA 48 mg/dL 7-21 H NITROGEN (BEAKER) (test code = 354) CREATININE 3.39 mg/dL 0.57-1.25 H (BEAKER) (test code = 358) GLUCOSE RANDOM 71 mg/dL 70-105 (BEAKER) (test code = 652) CALCIUM (BEAKER) 8.8 mg/dL 8.4-10.2 (test code = 697) EGFR (BEAKER) 13 Interpretatio n of eGFR (test code = mL/min/1.73 values Stage De scription 1092) sq m Result G1 Cecilia l or high >=90 G2 Mildly decreased 60-89 G3a Mildl y to moderately 45-5 9 G3b Moderately to s everely 30-44 G4 Severl y decreased 15-29 G5 Kidney failure <15Reported eGF R is based on the CKD-EPI 2020 equation that d oes not use a race coefficientEsti mated GFR is not as accur ate as Creatinine Susanne kevon in predicting glom erular filtration rate . Estimated GFR is not appl icable for dialysis patien ts Associate Professor Of Mathematics ID - SHAYY BBLOOD GAS, [id number] 13:21:50 Test Item Value Reference Range Interpretation Comments PH ARTERIAL (BEAKER) (test code = 7.36 7.35-7.45 383) PCO2 ARTERIAL (BEAKER) (test code 42 mm Hg 35-45 = 384) PO2 ARTERIAL (BEAKER) (test code 111 mm Hg 80-90 H = 385) O2 SATURATION ARTERIAL (BEAKER) 97.9 % 96.0-97.0 H (test code = 386) HCO3 ARTERIAL (BEAKER) (test code 23 mmol/L 21-29 = 388) BASE EXCESS ARTERIAL (BEAKER) -2.0 mmol/L -2.0-3.0 (test code = 387) PATIENT TEMPERATURE (BEAKER) 37.0 (test code = 1818) FIO2 (BEAKER) (test code = 1819) 28.0 HGB/HCT (H&H) - STAT [id number] 13:21:40 Test Item Value Reference Range Interpretation Comments HEMOGLOBIN (BEAKER) (test code = 8.6 GM/DL 12.0-15.0 L 410) HEMATOCRIT (BEAKER) (test code = 25.0 % 36.0-45.0 L 411) SODIUM NA-STAT [id number] 13:21:39 Test Item Value Reference Range Interpretation Comments SODIUM (BEAKER) (test code = 381) 125 meq/L 136-145 L GLUCOSE-STAT [id number] 13:20:26 Test Item Value Reference Range Interpretation Comments GLUCOSE RANDOM (BEAKER) (test code = 69 mg/dL 70-110 L 652) POTASSIUM-STAT [id number] 13:20:26 Test Item Value Reference Range Interpretation Comments POTASSIUM (BEAKER) (test code = 4.6 meq/L 3.6-5.5 379) BASIC METABOLIC [id number] 12:18:50 Test Item Value Reference Range Interpretation Comments SODIUM (BEAKER) 125 meq/L 136-145 L (test code = 381) POTASSIUM 4.7 meq/L 3.5-5.1 (BEAKER) (test code = 379) CHLORIDE (BEAKER) 92 meq/L 98-107 L (test code = 382) CO2 (BEAKER) 21 meq/L 22-29 L (test code = 355) BLOOD UREA 48 mg/dL 7-21 H NITROGEN (BEAKER) (test code = 354) CREATININE 3.44 mg/dL 0.57-1.25 H (BEAKER) (test code = 358) GLUCOSE RANDOM 71 mg/dL 70-105 (BEAKER) (test code = 652) CALCIUM (BEAKER) 8.4 mg/dL 8.4-10.2 (test code = 697) EGFR (BEAKER) 13 Interpretatio n of eGFR (test code = mL/min/1.73 values Stage De scription 1092) sq m Result G1 Cecilia l or high >=90 G2 Mildly decreased 60-89 G3a Mildl y to moderately 45-5 9 G3b Moderately to s everely 30-44 G4 Severl y decreased 15-29 G5 Kidney failure <15Reported eGF R is based on the CKD-EPI 2020 equation that d oes not use a race coefficientEsti mated GFR is not as accur ate as Creatinine Susanne lund in predicting glom erular filtration rate . Estimated GFR is not appl icable for dialysis patien ts Associate Professor Of Mathematics ID - JASON DSODIUM NA-STAT [id number] 12:04:58 Test Item Value Reference Range Interpretation Comments SODIUM (BEAKER) (test code = 381) 124 meq/L 136-145 L HGB/HCT (H&H) - STAT [id number] 12:04:58 Test Item Value Reference Range Interpretation Comments HEMOGLOBIN (BEAKER) (test code = 9.1 GM/DL 12.0-15.0 L 410) HEMATOCRIT (BEAKER) (test code = 27.0 % 36.0-45.0 L 411) POTASSIUM-STAT [id number] 12:04:45 Test Item Value Reference Range Interpretation Comments POTASSIUM (BEAKER) (test code = 4.7 meq/L 3.6-5.5 379) GLUCOSE-STAT [id number] 12:04:44 Test Item Value Reference Range Interpretation Comments GLUCOSE RANDOM (BEAKER) (test code = 64 mg/dL 70-110 L 652) BLOOD GAS, [id number] 12:04:17 Test Item Value Reference Range Interpretation Comments PH ARTERIAL (BEAKER) (test code = 7.37 7.35-7.45 383) PCO2 ARTERIAL (BEAKER) (test code 41 mm Hg 35-45 = 384) PO2 ARTERIAL (BEAKER) (test code 110 mm Hg 80-90 H = 385) O2 SATURATION ARTERIAL (BEAKER) 97.9 % 96.0-97.0 H (test code = 386) HCO3 ARTERIAL (BEAKER) (test code 23 mmol/L 21-29 = 388) BASE EXCESS ARTERIAL (BEAKER) -1.7 mmol/L -2.0-3.0 (test code = 387) PATIENT TEMPERATURE (BEAKER) 37.0 (test code = 1818) FIO2 (BEAKER) (test code = 1819) 36.0 POCT-GLUCOSE [id number] 11:43:15 Test Item Value Reference Range Interpretation Comments POC-GLUCOSE METER 73 mg/dL 70-110 : TESTED A T [facility] 6720 (BEAKER) (test code = [place], 1538) [address]: Associate Professor Of Mathematics/Techni wendi ID = [id number] for Jagdeep Robertson RAD, CHEST, 1 VIEW, NON [id number] 10:00:00Reason for exam:->f/u effusion [facility] : 1940 Sex: FFINAL REPORT RAD, CHEST, 1 VIEW, NON DEPT INDICATION: f/u effusion COMPARISON: Prior day's exam TECHNIQUE: Portable frontal view of the chest. FINDINGS: Support Lines and Devices: Stable. Lungs and pleura: Unchanged airspace and pleural opacities. No pneumothorax identified. Heart and mediastinum: Stable contours. Stable surgical changes. Additional findings: None. IMPRESSION: 1.No significant change from prior exam.2. Small to moderate left pleural effusion.3.Bilateral airspace and interstitial opacities, which may represent atelectasis, pneumonia or pulmonary edema. Signed: Javi Hutson Verified Date/Time: 07/28/2022 10:00:49 Reading Location: [address] Reading Room BASIC METABOLIC [id number] 09:24:18 Test Item Value Reference Range Interpretation Comments SODIUM (BEAKER) 126 meq/L 136-145 L (test code = 381) POTASSIUM 5.1 meq/L 3.5-5.1 Specimen slight ly (BEAKER) (test hemolyzed code = 379) CHLORIDE (BEAKER) 92 meq/L 98-107 L (test code = 382) CO2 (BEAKER) 21 meq/L 22-29 L (test code = 355) BLOOD UREA 45 mg/dL 7-21 H NITROGEN (BEAKER) (test code = 354) CREATININE 3.58 mg/dL 0.57-1.25 H Specimen slight ly (BEAKER) (test hemolyzed code = 358) GLUCOSE RANDOM 79 mg/dL 70-105 (BEAKER) (test code = 652) CALCIUM (BEAKER) 8.5 mg/dL 8.4-10.2 (test code = 697) EGFR (BEAKER) 12 Interpretati on of eGFR (test code = mL/min/1.73 values Stage De scription 1092) sq m Result G1 Cecilia l or high >=90 G2 Mildly decreased 60-89 G3a Mildl y to moderately 45-5 9 G3b Moderately to s everely 30-44 G4 Severl y decreased 15-29 G5 Kidney failure <15Reported eGF R is based on the CKD-EPI 2020 equation that d oes not use a race coefficientEsti mated GFR is not as accur ate as Creatinine Susanne lund in predicting glom erular filtration rate . Estimated GFR is not appl icable for dialysis patien ts Associate Professor Of Mathematics ID - SHAYY BBLOOD GAS, [id number] 09:04:38 Test Item Value Reference Range Interpretation Comments PH ARTERIAL (BEAKER) (test code = 7.36 7.35-7.45 383) PCO2 ARTERIAL (BEAKER) (test code 44 mm Hg 35-45 = 384) PO2 ARTERIAL (BEAKER) (test code 104 mm Hg 80-90 H = 385) O2 SATURATION ARTERIAL (BEAKER) 97.6 % 96.0-97.0 H (test code = 386) HCO3 ARTERIAL (BEAKER) (test code 25 mmol/L 21-29 = 388) BASE EXCESS ARTERIAL (BEAKER) -0.9 mmol/L -2.0-3.0 (test code = 387) PATIENT TEMPERATURE (BEAKER) 37.0 (test code = 1818) FIO2 (BEAKER) (test code = 1819) 36.0 HGB/HCT (H&H) - STAT [id number] 09:03:13 Test Item Value Reference Range Interpretation Comments HEMOGLOBIN (BEAKER) (test code = 8.7 GM/DL 12.0-15.0 L 410) HEMATOCRIT (BEAKER) (test code = 26.0 % 36.0-45.0 L 411) SODIUM NA-STAT [id number] 09:03:12 Test Item Value Reference Range Interpretation Comments SODIUM (BEAKER) (test code = 381) 121 meq/L 136-145 L GLUCOSE-STAT [id number] 09:02:27 Test Item Value Reference Range Interpretation Comments GLUCOSE RANDOM (BEAKER) (test code = 75 mg/dL 70-110 652) POTASSIUM-STAT [id number] 09:02:27 Test Item Value Reference Range Interpretation Comments POTASSIUM (BEAKER) (test code = 4.8 meq/L 3.6-5.5 379) CALCIUM, [id number] 09:02:05 Test Item Value Reference Range Interpretation Comments CALCIUM IONIZED (BEAKER) (test 1.12 mmol/L 1.12-1.27 code = 698) PH, BLOOD (BEAKER) (test code = 7.37 1810) Body fluid culture + gram [id number] 08:23:00 Test Item Value Reference Range Interpretation Comments Result (test code = 6463-4) No growth [facility]AM [id number] 08:23:00 Test Item Value Reference Range Interpretation Comments CULTURE (BEAKER) (test code = 1095) No growth POCT-GLUCOSE [id number] 07:48:59 Test Item Value Reference Range Interpretation Comments POC-GLUCOSE METER 85 mg/dL 70-110 : TESTED A T [facility] 6720 (BEAKER) (test code = [facility], 1538) [address]: Associate Professor Of Mathematics/Techni wendi ID = [id number] for Jagdeep Robertson POCT-GLUCOSE [id number] 06:58:12 Test Item Value Reference Range Interpretation Comments POC-GLUCOSE METER 97 mg/dL 70-110 : TESTED A T [facility] 6720 (BEAKER) (test code = [facility], 1538) [id number]: Associate Professor Of Mathematics/Techni wendi ID = [id number] for Ludivina Flores Lactic Acid, [id number] 05:06:23 Test Item Value Reference Range Interpretation Comments Lactate, Art (test code = 0.8 mmol/L 0.5-2.2 2874) JANEEN (test code = JANEEN) Associate Professor Of Mathematics ID Kelly CORRIGAN W Lab Interpretation (test Normal code = 50536-9) [facility], [id number] 05:06:23 Test Item Value Reference Range Interpretation Comments LACTATE BLOOD ARTERIAL (2) 0.8 mmol/L 0.5-2.2 (BEAKER) (test code = 2874) Associate Professor Of Mathematics SANTO CORRIGAN WBLOOD GAS, [id number] 04:38:44 Test Item Value Reference Range Interpretation Comments PH ARTERIAL (BEAKER) (test code = 7.34 7.35-7.45 L 383) PCO2 ARTERIAL (BEAKER) (test code 44 mm Hg 35-45 = 384) PO2 ARTERIAL (BEAKER) (test code 129 mm Hg 80-90 H = 385) O2 SATURATION ARTERIAL (BEAKER) 98.4 % 96.0-97.0 H (test code = 386) HCO3 ARTERIAL (BEAKER) (test code 23 mmol/L 21-29 = 388) BASE EXCESS ARTERIAL (BEAKER) -2.9 mmol/L -2.0-3.0 L (test code = 387) PATIENT TEMPERATURE (BEAKER) 37.0 (test code = 1818) FIO2 (BEAKER) (test code = 1819) 21.0 HGB/HCT (H&H) - STAT [id number] 04:32:57 Test Item Value Reference Range Interpretation Comments HEMOGLOBIN (BEAKER) (test code = 8.7 GM/DL 12.0-15.0 L 410) HEMATOCRIT (BEAKER) (test code = 26.0 % 36.0-45.0 L 411) SODIUM NA-STAT [id number] 04:32:51 Test Item Value Reference Range Interpretation Comments SODIUM (BEAKER) (test code = 381) 122 meq/L 136-145 L POTASSIUM-STAT [id number] 04:32:18 Test Item Value Reference Range Interpretation Comments POTASSIUM (BEAKER) (test code = 4.8 meq/L 3.6-5.5 379) GLUCOSE-STAT [id number] 04:32:13 Test Item Value Reference Range Interpretation Comments GLUCOSE RANDOM (BEAKER) (test code = 68 mg/dL 70-110 L 652) BASIC METABOLIC [id number] 02:41:27 Test Item Value Reference Range Interpretation Comments SODIUM (BEAKER) 123 meq/L 136-145 L (test code = 381) POTASSIUM 4.9 meq/L 3.5-5.1 (BEAKER) (test code = 379) CHLORIDE (BEAKER) 90 meq/L 98-107 L (test code = 382) CO2 (BEAKER) 21 meq/L 22-29 L (test code = 355) BLOOD UREA 45 mg/dL 7-21 H NITROGEN (BEAKER) (test code = 354) CREATININE 3.79 mg/dL 0.57-1.25 H (BEAKER) (test code = 358) GLUCOSE RANDOM 85 mg/dL 70-105 (BEAKER) (test code = 652) CALCIUM (BEAKER) 8.4 mg/dL 8.4-10.2 (test code = 697) EGFR (BEAKER) 11 Interpretatio n of eGFR (test code = mL/min/1.73 values Stage De scription 1092) sq m Result G1 Cecilia l or high >=90 G2 Mildly decreased 60-89 G3a Mild ly to moderately 45-5 9 G3b Moderately to s everely 30-44 G4 Severl y decreased 15-29 G5 Kidney failure <15Reported eGF R is based on the CKD-EPI 202 equation that d oes not use a race coefficientEsti mated GFR is not as accur ate as Creatinine Susanne kevon in predicting glom erular filtration rate . Estimated GFR is not appl icable for dialysis patien ts Associate Professor Of Mathematics ID - MARIO [id number] 02:19:17 Test Item Value Reference Range Interpretation Comments MAGNESIUM (BEAKER) (test code = 3.1 mg/dL 1.6-2.6 H 627) Associate Professor Of Mathematics ID - MARIO [id number] 02:19:17 Test Item Value Reference Range Interpretation Comments PHOSPHORUS (BEAKER) (test code = 5.4 mg/dL 2.3-4.7 H 604) Associate Professor Of Mathematics ID - MARIO LCBC W/PLT COUNT & AUTO [id number] 01:46:54 Test Item Value Reference Range Interpretation Comments WHITE BLOOD CELL COUNT (BEAKER) 17.3 K/ L 3.5-10.5 H (test code = 775) RED BLOOD CELL COUNT (BEAKER) 2.68 M/ L 3.93-5.22 L (test code = 761) HEMOGLOBIN (BEAKER) (test code = 8.0 GM/DL 11.2-15.7 L 410) HEMATOCRIT (BEAKER) (test code = 25.2 % 34.1-44.9 L 411) MEAN CORPUSCULAR VOLUME (BEAKER) 94 fL 79-95 (test code = 753) MEAN CORPUSCULAR HEMOGLOBIN 29.9 pg 25.6-32.2 (BEAKER) (test code = 751) MEAN CORPUSCULAR HEMOGLOBIN CONC 31.7 GM/DL 32.2-35.5 L (BEAKER) (test code = 752) RED CELL DISTRIBUTION WIDTH 16.1 % 11.7-14.4 H (BEAKER) (test code = 412) PLATELET COUNT (BEAKER) (test 249 K/CU MM 150-450 code = 756) MEAN PLATELET VOLUME (BEAKER) 10.1 fL 9.4-12.3 (test code = 754) NUCLEATED RED BLOOD CELLS 1 /100 WBC 0-0 H (BEAKER) (test code = 413) NEUTROPHILS RELATIVE PERCENT 86 % (BEAKER) (test code = 429) LYMPHOCYTES RELATIVE PERCENT 5 % (BEAKER) (test code = 430) MONOCYTES RELATIVE PERCENT 8 % (BEAKER) (test code = 431) EOSINOPHILS RELATIVE PERCENT 0 % (BEAKER) (test code = 432) BASOPHILS RELATIVE PERCENT 0 % (BEAKER) (test code = 437) NEUTROPHILS ABSOLUTE COUNT 14.84 K/ L 1.56-6.13 H (BEAKER) (test code = 670) LYMPHOCYTES ABSOLUTE COUNT 0.79 K/ L 1.18-3.74 L (BEAKER) (test code = 414) MONOCYTES ABSOLUTE COUNT (BEAKER) 1.43 K/ L 0.24-0.36 H (test code = 415) EOSINOPHILS ABSOLUTE COUNT 0.00 K/ L 0.04-0.36 L (BEAKER) (test code = 416) BASOPHILS ABSOLUTE COUNT (BEAKER) 0.02 K/ L 0.01-0.08 (test code = 417) IMMATURE GRANULOCYTES-RELATIVE 1.30 % 0.00-1.00 H PERCENT (BEAKER) (test code = 2801) HGB/HCT (H&H) - STAT [id number] 01:17:41 Test Item Value Reference Range Interpretation Comments HEMOGLOBIN (BEAKER) (test code = 8.9 GM/DL 12.0-15.0 L 410) HEMATOCRIT (BEAKER) (test code = 26.0 % 36.0-45.0 L 411) SODIUM NA-STAT [id number] 01:17:40 Test Item Value Reference Range Interpretation Comments SODIUM (BEAKER) (test code = 381) 123 meq/L 136-145 L GLUCOSE-STAT [id number] 01:17:35 Test Item Value Reference Range Interpretation Comments GLUCOSE RANDOM (BEAKER) (test code = 84 mg/dL 70-110 652) POTASSIUM-STAT [id number] 01:17:35 Test Item Value Reference Range Interpretation Comments POTASSIUM (BEAKER) (test code = 5.0 meq/L 3.6-5.5 379) CALCIUM, [id number] 01:15:58 Test Item Value Reference Range Interpretation Comments CALCIUM IONIZED (BEAKER) (test 1.08 mmol/L 1.12-1.27 L code = 698) PH, BLOOD (BEAKER) (test code = 7.30 1810) BLOOD GAS, [id number] 01:15:58 Test Item Value Reference Range Interpretation Comments PH ARTERIAL (BEAKER) (test code = 7.30 7.35-7.45 L 383) PCO2 ARTERIAL (BEAKER) (test code 51 mm Hg 35-45 H = 384) PO2 ARTERIAL (BEAKER) (test code 116 mm Hg 80-90 H = 385) O2 SATURATION ARTERIAL (BEAKER) 97.8 % 96.0-97.0 H (test code = 386) HCO3 ARTERIAL (BEAKER) (test code 25 mmol/L 21-29 = 388) BASE EXCESS ARTERIAL (BEAKER) -1.8 mmol/L -2.0-3.0 (test code = 387) PATIENT TEMPERATURE (BEAKER) 37.0 (test code = 1818) FIO2 (BEAKER) (test code = 1819) 21.0 POCT-GLUCOSE [id number] 00:07:09 Test Item Value Reference Range Interpretation Comments POC-GLUCOSE METER 75 mg/dL 70-110 : TESTED A T [facility] 6720 (BEAKER) (test code = [place], 1538) [address]: Associate Professor Of Mathematics/Techni wendi ID = [id number] for BRIAN ETTDecember BASIC METABOLIC [id number] 20:38:11 Test Item Value Reference Range Interpretation Comments SODIUM (BEAKER) 126 meq/L 136-145 L (test code = 381) POTASSIUM 5.0 meq/L 3.5-5.1 (BEAKER) (test code = 379) CHLORIDE (BEAKER) 91 meq/L 98-107 L (test code = 382) CO2 (BEAKER) 21 meq/L 22-29 L (test code = 355) BLOOD UREA 46 mg/dL 7-21 H NITROGEN (BEAKER) (test code = 354) CREATININE 3.80 mg/dL 0.57-1.25 H (BEAKER) (test code = 358) GLUCOSE RANDOM 86 mg/dL 70-105 (BEAKER) (test code = 652) CALCIUM (BEAKER) 8.6 mg/dL 8.4-10.2 (test code = 697) EGFR (BEAKER) 11 Interpretatio n of eGFR (test code = mL/min/1.73 values Stage De scription 1092) sq m Result G1 Cecilia l or high >=90 G2 Mildly decreased 60-89 G3a Mildl y to moderately 45-5 9 G3b Moderately to s everely 30-44 G4 Severl y decreased 15-29 G5 Kidney failure <15Reported eGF R is based on the CKD-EPI 2020 equation that d oes not use a race coefficientEsti mated GFR is not as accur ate as Creatinine Susanne kevon in predicting glom erular filtration rate . Estimated GFR is not appl icable for dialysis patien ts Associate Professor Of Mathematics ID - [id number] GAS, [id number] 20:18:24 Test Item Value Reference Range Interpretation Comments PH ARTERIAL (BEAKER) (test code = 7.32 7.35-7.45 L 383) PCO2 ARTERIAL (BEAKER) (test code 47 mm Hg 35-45 H = 384) PO2 ARTERIAL (BEAKER) (test code 102 mm Hg 80-90 H = 385) O2 SATURATION ARTERIAL (BEAKER) 97.1 % 96.0-97.0 H (test code = 386) HCO3 ARTERIAL (BEAKER) (test code 24 mmol/L 21-29 = 388) BASE EXCESS ARTERIAL (BEAKER) -2.4 mmol/L -2.0-3.0 L (test code = 387) PATIENT TEMPERATURE (BEAKER) 37.5 (test code = 1818) FIO2 (BEAKER) (test code = 1819) 21.0 SODIUM NA-STAT [id number] 20:18:24 Test Item Value Reference Range Interpretation Comments SODIUM (BEAKER) (test code = 381) 123 meq/L 136-145 L HGB/HCT (H&H) - STAT [id number] 20:18:24 Test Item Value Reference Range Interpretation Comments HEMOGLOBIN (BEAKER) (test code = 8.8 GM/DL 12.0-15.0 L 410) HEMATOCRIT (BEAKER) (test code = 26.0 % 36.0-45.0 L 411) POTASSIUM-STAT [id number] 20:18:08 Test Item Value Reference Range Interpretation Comments POTASSIUM (BEAKER) (test code = 4.9 meq/L 3.6-5.5 379) GLUCOSE-STAT [id number] 20:18:03 Test Item Value Reference Range Interpretation Comments GLUCOSE RANDOM (BEAKER) (test code = 89 mg/dL 70-110 652) RAD, CHEST, 1 VIEW, NON [id number] 17:45:00Reason for exam:->RIJ CVC placment/positionShould this be performed at the bedside?->Yes [facility] 1940 Sex: FFINAL REPORT TECHNIQUE: Frontal view of the chest. INDICATION: RIJ CVC placement/position. COMPARISON: 07/27/2022 at 2:30 PM. FINDINGS: LINES/TUBES: Placement of right IJ central venous catheter tip projected over the right atrium. HEART AND MEDIASTINUM: Cardiomediastinal contour is stable. Cardiomegaly. Prior median sternotomy. LUNGS: Persistent patchy left basilar opacity. No pulmonary edema. Minimal right basilar atelectatic change. PLEURA: Small bilateral pleural effusions, left greater than right, unchanged. No pneumothorax. SOFT TISSUES AND BONES: Unremarkable. IMPRESSION:1.Placement of right IJ central venous catheter tip projected over the right atrium. No pneumothorax.2. Small bilateral pleural effusions, left greater than right with patchy left basilar opacity, unchanged. Signed: Rik Richey [facility] Verified Date/Time: 07/27/2022 17:45:20 BASIC METABOLIC [id number] 16:38:21 Test Item Value Reference Range Interpretation Comments SODIUM (BEAKER) 121 meq/L 136-145 L (test code = 381) POTASSIUM 4.8 meq/L 3.5-5.1 (BEAKER) (test code = 379) CHLORIDE (BEAKER) 86 meq/L 98-107 L (test code = 382) CO2 (BEAKER) 24 meq/L 22-29 (test code = 355) BLOOD UREA 45 mg/dL 7-21 H NITROGEN (BEAKER) (test code = 354) CREATININE 3.90 mg/dL 0.57-1.25 H (BEAKER) (test code = 358) GLUCOSE RANDOM 96 mg/dL 70-105 (BEAKER) (test code = 652) CALCIUM (BEAKER) 8.3 mg/dL 8.4-10.2 L (test code = 697) EGFR (BEAKER) 11 Interpretatio n of eGFR (test code = mL/min/1.73 values Stage De scription 1092) sq m Result G1 Cecilia l or high >=90 G2 Mildly decreased 60-89 G3a Mildl y to moderately 45-5 9 G3b Moderately to s everely 30-44 G4 Severl y decreased 15-29 G5 Kidney failure <15Reported eGF R is based on the CKD-EPI 2020 equation that d oes not use a race coefficientEsti mated GFR is not as accur ate as Creatinine Susanne lund in predicting glom erular filtration rate . Estimated GFR is not appl icable for dialysis patien ts Associate Professor Of Mathematics ID - SHAYY [id number] 16:37:47 Test Item Value Reference Range Interpretation Comments PHOSPHORUS (BEAKER) (test code = 5.7 mg/dL 2.3-4.7 H 604) Associate Professor Of Mathematics ID - SHAYY [id number] 16:37:46 Test Item Value Reference Range Interpretation Comments MAGNESIUM (BEAKER) (test code = 3.2 mg/dL 1.6-2.6 H 627) Associate Professor Of Mathematics ID - SHAYY [id number] 16:24:42 Test Item Value Reference Range Interpretation Comments PROCALCITONIN (BEAKER) (test code 0.45 ng/mL <0.05 H = 3036) SEPSIS RISK (ng/mL)Low: 0.05-0.50Intermediate: 0.51-2.00High: >=2.01BLOOD GAS, [id number] 16:14:09 Test Item Value Reference Range Interpretation Comments PH ARTERIAL (BEAKER) (test code = 7.25 7.35-7.45 L 383) PCO2 ARTERIAL (BEAKER) (test code 61 mm Hg 35-45 H = 384) PO2 ARTERIAL (BEAKER) (test code 128 mm Hg 80-90 H = 385) O2 SATURATION ARTERIAL (BEAKER) 98.0 % 96.0-97.0 H (test code = 386) HCO3 ARTERIAL (BEAKER) (test code 26 mmol/L 21-29 = 388) BASE EXCESS ARTERIAL (BEAKER) -1.5 mmol/L -2.0-3.0 (test code = 387) PATIENT TEMPERATURE (BEAKER) 36.6 (test code = 1818) FIO2 (BEAKER) (test code = 1819) 32.0 RAD, CHEST, 1 VIEW, NON [id number] 15:30:00Reason for exam:->Pulmonary edemaShould this be performed at the bedside?->Yes [facility] 1940 Sex: FFINAL REPORT RAD, CHEST, 1 VIEW, NON DEPT INDICATION: Pulmonary edema COMPARISON: Prior day's exam TECHNIQUE: Portable frontal view of the chest. FINDINGS: Support Lines and Devices: Stable. Lungs and pleura: Unchanged airspace and pleural opacities. No pneumothorax identified. Heartand mediastinum: Stable contours. Stable surgical changes. Additional findings: None. IMPRESSION: 1.Small bilateral pleural effusions.2.Left retrocardiac opacity, representing singly or in combination pneumonia, atelectasis, or pleural effusion. Signed: Javi Hutson Verified Date/Time: 07/27/2022 15:30:02 Reading Location: [address] Reading Room [id number] 15:21:10 Test Item Value Reference Range Interpretation Comments PARTIAL THROMBOPLASTIN TIME 40.2 seconds 22.5-36.0 H (BEAKER) (test code = 760) PROTHROMBIN TIME/[id number] 15:20:26 Test Item Value Reference Range Interpretation Comments PROTIME (BEAKER) 16.1 seconds 11.9-14.2 H (test code = 759) INR (BEAKER) (test 1.37 See_Comment [Automat ed message] code = 370) The system IPXI generated this result transmitted ref erence range: <=5.90. The reference range was not used to int erpret this result as normal/abnormal . RECOMMENDED COUMADIN/WARFARIN INR THERAPY RANGESSTANDARD DOSE: 2.0 - 3.0 Includes: PROPHYLAXIS for venous thrombosis, systemic embolization; TREATMENT for venous thrombosis and/or pulmonary embolus.HIGH RISK: Target INR is 2.5-3.5 for patients with mechanical heart valves.CBC W/PLT COUNT & AUTO [id number] 15:10:01 Test Item Value Reference Range Interpretation Comments WHITE BLOOD CELL COUNT (BEAKER) 17.4 K/ L 3.5-10.5 H (test code = 775) RED BLOOD CELL COUNT (BEAKER) 2.73 M/ L 3.93-5.22 L (test code = 761) HEMOGLOBIN (BEAKER) (test code = 8.3 GM/DL 11.2-15.7 L 410) HEMATOCRIT (BEAKER) (test code = 25.1 % 34.1-44.9 L 411) MEAN CORPUSCULAR VOLUME (BEAKER) 92 fL 79-95 (test code = 753) MEAN CORPUSCULAR HEMOGLOBIN 30.4 pg 25.6-32.2 (BEAKER) (test code = 751) MEAN CORPUSCULAR HEMOGLOBIN CONC 33.1 GM/DL 32.2-35.5 (BEAKER) (test code = 752) RED CELL DISTRIBUTION WIDTH 16.0 % 11.7-14.4 H (BEAKER) (test code = 412) PLATELET COUNT (BEAKER) (test 265 K/CU MM 150-450 code = 756) MEAN PLATELET VOLUME (BEAKER) 10.4 fL 9.4-12.3 (test code = 754) NUCLEATED RED BLOOD CELLS 2 /100 WBC 0-0 H (BEAKER) (test code = 413) LACTIC ACID, [id number] 15:01:58 Test Item Value Reference Range Interpretation Comments LACTATE BLOOD 1.0 mmol/L 0.5-2.2 Specimen sligh tly ARTERIAL (2) (BEAKER) hemoly zed (test code = 2874) Associate Professor Of Mathematics ID - FSEHEPATIC FUNCTION [id number] 13:43:56 Test Item Value Reference Range Interpretation Comments TOTAL PROTEIN (BEAKER) (test code = 6.2 gm/dL 6.0-8.3 770) ALBUMIN (BEAKER) (test code = 1145) 3.8 g/dL 3.5-5.0 BILIRUBIN TOTAL (BEAKER) (test code 0.5 mg/dL 0.2-1.2 = 377) BILIRUBIN DIRECT (BEAKER) (test 0.3 mg/dL 0.1-0.5 code = 706) ALKALINE PHOSPHATASE (BEAKER) (test 78 U/L 40-150 code = 346) AST (SGOT) (BEAKER) (test code = 14 U/L 5-34 353) ALT (SGPT) (BEAKER) (test code = 10 U/L 6-55 347) Associate Professor Of Mathematics ID - SHAYY BPOCT-GLUCOSE [id number] 12:00:18 Test Item Value Reference Range Interpretation Comments POC-GLUCOSE METER 112 mg/dL 70-110 H : [facility] (BEAKER) (test code = [place], 1538) [id number]: Associate Professor Of Mathematics/Techni wendi ID = [id number] for [place] GINAGIOVANNIJANAY POCT-GLUCOSE [id number] 11:40:46 Test Item Value Reference Range Interpretation Comments POC-GLUCOSE METER 113 mg/dL 70-110 H : TESTED A T [facility] 67[address] (BEAKER) (test code = [place], 1538) [id number]: Associate Professor Of Mathematics/Techni wendi ID = [id number] for Natanael Payan (CELLAVISION MANUAL DIFF)2022-07-27 11:03:48 Test Item Value Reference Range Interpretation Comments NEUTROPHILS - REL 87 % (CELLAVISION)(BEAKER) (test code = 2816) LYMPHOCYTES - REL 6 % (CELLAVISION)(BEAKER) (test code = 2817) MONOCYTES - REL 6 % (CELLAVISION)(BEAKER) (test code = 2818) EOSINOPHILS - REL 1 % (CELLAVISION)(BEAKER) (test code = 2819) NEUTROPHILS - ABS 15.40 K/ul 1.56-6.13 H (CELLAVISION)(BEAKER) (test code = 2830) LYMPHOCYTES - ABS 1.06 K/ul 1.18-3.74 L (CELLAVISION)(BEAKER) (test code = 2831) MONOCYTES - ABS 1.06 K/uL 0.24-0.36 H (CELLAVISION)(BEAKER) (test code = 2832) EOSINOPHILS - ABS 0.18 K/uL 0.04-0.36 (CELLAVISION)(BEAKER) (test code = 2834) TOTAL COUNTED (BEAKER) (test code 100 = 1351) MANUAL NRBC PER 100 CELLS (BEAKER) 4 /100 WBC 0-0 H (test code = 1353) PLT MORPHOLOGY (BEAKER) (test code Normal = 486) SMUDGE CELLS (BEAKER) (test code = Present 1371) POLYCHROMATOPHILLIC RBCS(BEAKER) 1+ few (test code = 478) ANISOCYTOSIS (BEAKER) (test code = 1+ few 961) MACROCYTES (BEAKER) (test code = 1+ few 964) POIKILOCYTES (BEAKER) (test code = 1+ few 966) OVALOCYTES (BEAKER) (test code = 1+ few 477) PLATELET CONCENTRATION Adequate (CELLAVISION)(BEAKER) (test code = 3438) Associate Professor Of Mathematics ID - Jason Dato-onUser comments: Slide comments:(CELLAVISION MANUAL DIFF)2022-07-27 11:03:47 Test Item Value Reference Range Interpretation Comments NEUTROPHILS - REL 86 % (CELLAVISION)(BEAKER) (test code = 2816) LYMPHOCYTES - REL 4 % (CELLAVISION)(BEAKER) (test code = 2817) MONOCYTES - REL 7 % (CELLAVISION)(BEAKER) (test code = 2818) MYELOCYTES - REL 1 % 0-0 H (CELLAVISION)(BEAKER) (test code = 2822) BANDS - REL (CELLAVISION)(BEAKER) 2 % 0-10 (test code = 2826) NEUTROPHILS - ABS 16.86 K/ul 1.56-6.13 H (CELLAVISION)(BEAKER) (test code = 2830) LYMPHOCYTES - ABS 0.78 K/ul 1.18-3.74 L (CELLAVISION)(BEAKER) (test code = 2831) MONOCYTES - ABS 1.37 K/uL 0.24-0.36 H (CELLAVISION)(BEAKER) (test code = 2832) MYELOCYTES-ABS 0.20 K/uL 0.00-0.00 H (CELLAVISION)(BEAKER) (test code = 2837) BANDS - ABS (CELLAVISION)(BEAKER) 0.39 K/uL 0.00-0.80 (test code = 2840) TOTAL COUNTED (BEAKER) (test code 100 = 1351) MANUAL NRBC PER 100 CELLS 3 /100 WBC 0-0 H (BEAKER) (test code = 1353) RBC MORPHOLOGY (BEAKER) (test Normal code = 762) WBC MORPHOLOGY (BEAKER) (test Normal code = 487) PLT MORPHOLOGY (BEAKER) (test Normal code = 486) POLYCHROMATOPHILLIC RBCS(BEAKER) 1+ few (test code = 478) ANISOCYTOSIS (BEAKER) (test code 1+ few = 961) MACROCYTES (BEAKER) (test code = 1+ few 964) POIKILOCYTES (BEAKER) (test code 2+ moderate = 966) SCHISTOCYTES (BEAKER) (test code 1+ few = 765) OVALOCYTES (BEAKER) (test code = 2+ moderate 477) PLATELET CONCENTRATION Adequate (CELLAVISION)(BEAKER) (test code = 3438) Associate Professor Of Mathematics ID - Jason Dato-onUser comments: Slide comments:CBC W/PLT COUNT & AUTO [id number] 11:03:46 Test Item Value Reference Range Interpretation Comments WHITE BLOOD CELL COUNT (BEAKER) 17.7 K/ L 3.5-10.5 H (test code = 775) RED BLOOD CELL COUNT (BEAKER) 2.68 M/ L 3.93-5.22 L (test code = 761) HEMOGLOBIN (BEAKER) (test code = 8.3 GM/DL 11.2-15.7 L 410) HEMATOCRIT (BEAKER) (test code = 25.6 % 34.1-44.9 L 411) MEAN CORPUSCULAR VOLUME (BEAKER) 96 fL 79-95 H (test code = 753) MEAN CORPUSCULAR HEMOGLOBIN 31.0 pg 25.6-32.2 (BEAKER) (test code = 751) MEAN CORPUSCULAR HEMOGLOBIN CONC 32.4 GM/DL 32.2-35.5 (BEAKER) (test code = 752) RED CELL DISTRIBUTION WIDTH 15.9 % 11.7-14.4 H (BEAKER) (test code = 412) PLATELET COUNT (BEAKER) (test 264 K/CU MM 150-450 code = 756) MEAN PLATELET VOLUME (BEAKER) 10.0 fL 9.4-12.3 (test code = 754) NUCLEATED RED BLOOD CELLS 2 /100 WBC 0-0 H (BEAKER) (test code = 413) CBC W/PLT COUNT & AUTO [id number] 11:03:45 Test Item Value Reference Range Interpretation Comments WHITE BLOOD CELL COUNT (BEAKER) 19.6 K/ L 3.5-10.5 H (test code = 775) RED BLOOD CELL COUNT (BEAKER) 2.90 M/ L 3.93-5.22 L (test code = 761) HEMOGLOBIN (BEAKER) (test code = 9.1 GM/DL 11.2-15.7 L 410) HEMATOCRIT (BEAKER) (test code = 27.2 % 34.1-44.9 L 411) MEAN CORPUSCULAR VOLUME (BEAKER) 94 fL 79-95 (test code = 753) MEAN CORPUSCULAR HEMOGLOBIN 31.4 pg 25.6-32.2 (BEAKER) (test code = 751) MEAN CORPUSCULAR HEMOGLOBIN CONC 33.5 GM/DL 32.2-35.5 (BEAKER) (test code = 752) RED CELL DISTRIBUTION WIDTH 16.0 % 11.7-14.4 H (BEAKER) (test code = 412) PLATELET COUNT (BEAKER) (test 284 K/CU MM 150-450 code = 756) MEAN PLATELET VOLUME (BEAKER) 10.9 fL 9.4-12.3 (test code = 754) NUCLEATED RED BLOOD CELLS 2 /100 WBC 0-0 H (BEAKER) (test code = 413) BASIC METABOLIC [id number] 10:05:20 Test Item Value Reference Range Interpretation Comments SODIUM (BEAKER) 122 meq/L 136-145 L (test code = 381) POTASSIUM 5.1 meq/L 3.5-5.1 Specimen slight ly (BEAKER) (test hemolyzed code = 379) CHLORIDE (BEAKER) 87 meq/L 98-107 L (test code = 382) CO2 (BEAKER) 20 meq/L 22-29 L (test code = 355) BLOOD UREA 42 mg/dL 7-21 H NITROGEN (BEAKER) (test code = 354) CREATININE 3.64 mg/dL 0.57-1.25 H Specimen slight ly (BEAKER) (test hemolyzed code = 358) GLUCOSE RANDOM 85 mg/dL 70-105 (BEAKER) (test code = 652) CALCIUM (BEAKER) 8.6 mg/dL 8.4-10.2 (test code = 697) EGFR (BEAKER) 12 Interpretati on of eGFR (test code = mL/min/1.73 values Stage De scription 1092) sq m Result G1 Cecilia l or high >=90 G2 Mildly decreased 60-89 G3a Mildl y to moderately 45-5 9 G3b Moderately to s everely 30-44 G4 Severl y decreased 15-29 G5 Kidney failure <15Reported eGF R is based on the CKD-EPI 2021 equation that d oes not use a race coefficientEsti mated GFR is not as accur ate as Creatinine Susanne lund in predicting glom erular filtration rate . Estimated GFR is not appl icable for dialysis patien ts Associate Professor Of Mathematics ID - SANTI [id number] 10:05:03 Test Item Value Reference Range Interpretation Comments MAGNESIUM (BEAKER) 3.1 mg/dL 1.6-2.6 H Specimen slightly (test code = 627) hemolyzed Associate Professor Of Mathematics ID - SANTI [id number] 10:05:03 Test Item Value Reference Range Interpretation Comments PHOSPHORUS (BEAKER) 5.8 mg/dL 2.3-4.7 H Specimen slightly (test code = 604) hemolyzed Associate Professor Of Mathematics ID - SANTI MBASIC METABOLIC [id number] 09:42:53 Test Item Value Reference Range Interpretation Comments SODIUM (BEAKER) 123 meq/L 136-145 L (test code = 381) POTASSIUM 4.9 meq/L 3.5-5.1 (BEAKER) (test code = 379) CHLORIDE (BEAKER) 88 meq/L 98-107 L (test code = 382) CO2 (BEAKER) 23 meq/L 22-29 (test code = 355) BLOOD UREA 43 mg/dL 7-21 H NITROGEN (BEAKER) (test code = 354) CREATININE 3.73 mg/dL 0.57-1.25 H (BEAKER) (test code = 358) GLUCOSE RANDOM 107 mg/dL 70-105 H (BEAKER) (test code = 652) CALCIUM (BEAKER) 8.5 mg/dL 8.4-10.2 (test code = 697) EGFR (BEAKER) 12 Interpretatio n of eGFR (test code = mL/min/1.73 values Stage De scription 1092) sq m Result G1 Cecilia l or high >=90 G2 Mildly decreased 60-89 G3a Mildl y to moderately 45-5 9 G3b Moderately to s everely 30-44 G4 Severl y decreased 15-29 G5 Kidney failure <15Reported eGF R is based on the CKD-EPI 1 equation that d oes not use a race coefficientEsti mated GFR is not as accur ate as Creatinine Susanne kevon in predicting glom erular filtration rate . Estimated GFR is not appl icable for dialysis patien ts Associate Professor Of Mathematics ID - SANTI MURINALYSIS W/ REFLEX URINE [id number] 09:31:35 Test Item Value Reference Range Interpretation Comments COLOR (BEAKER) (test code = 470) Yellow CLARITY (BEAKER) (test code = 469) Hazy SPECIFIC GRAVITY UA (BEAKER) (test 1.035 1.001-1.035 code = 468) PH UA (BEAKER) (test code = 467) 5.5 5.0-8.0 PROTEIN UA (BEAKER) (test code = 100 mg/dL Negative A 464) GLUCOSE UA (BEAKER) (test code = Negative Negative 365) KETONES UA (BEAKER) (test code = Negative Negative 371) BILIRUBIN UA (BEAKER) (test code = Positive Negative A 462) BLOOD UA (BEAKER) (test code = Moderate Negative A 461) NITRITE UA (BEAKER) (test code = Negative Negative 465) LEUKOCYTE ESTERASE UA (BEAKER) Large Negative A (test code = 466) UROBILINOGEN UA (BEAKER) (test 0.2 0.2-1.0 code = 463) RBC UA (BEAKER) (test code = 519) 9 /HPF WBC UA (BEAKER) (test code = 520) 69 /HPF BACTERIA (BEAKER) (test code = Many 517) MUCUS (BEAKER) (test code = 1574) Occasional SQUAMOUS EPITHELIAL (BEAKER) (test 3 /HPF code = 516) HYALINE CASTS (BEAKER) (test code 20 /LPF = 514) YEAST (BEAKER) (test code = 1585) Occasional SOURCE(BEAKER) (test code = 6825) Associate Professor Of Mathematics ID - keraU/S, [id number] 09:22:00Laterality?- >LeftReason for exam:->pleural effusionLabs to be Ordered:->Glucose+LDH+ProteinLabs to be Ordered:->Cell Count [facility] : 1940 Sex: FFINAL REPORT Ultrasound guided left thoracentesis. Clinical History: Left pleural effusion. Modality: Ultrasound. Sedation: None. Director Of Enterprise Architecture: Cherri Joyce PA-C Taping Foreman: None. Estimated Blood Loss: 1cc Specimen: 750 cc of nonclotting hemorrhagic fluid. Technique: Informed consent was obtained. The risks of pain, bleeding, infection, lung collapse/pneumothorax, injury to adj acent structures, and adverse medication reactions were discussed with the patient. The patient's left hemithorax was scanned from the back, with the patient in a right lateral decubitus position. After the largest fluid pocket area was marked, the skin was prepped and draped in the usual sterile manner. The area was anesthetized with 2% lidocaine, a 5 F one-step catheter was advanced into the pleural space under ultrasound guidance. After completion of drainage, the catheter was removed. There was no evidence of immediate complication. Post procedure chest x-ray is pending. Impression:Successful and uncomplicated ultrasound guided left thoracentesis. Signed: Andrew Foster Verified Date/Time: 07/27/2022 09:22:22 Reading Location: [address] Ultrasound Reading Room POCT-GLUCOSE [id number] 08:22:03 Test Item Value Reference Range Interpretation Comments POC-GLUCOSE METER 116 mg/dL 70-110 H : TESTED A T [facility] 67[address] ([employer]) (test code = [facility], 153) [address]: Associate Professor Of Mathematics/Techni wendi ID = [id number] for Saima Payano POCT-GLUCOSE [id number] 22:06:39 Test Item Value Reference Range Interpretation Comments POC-GLUCOSE METER 120 mg/dL 70-110 H : TESTED A T [facility] [address] ([employer]) (test code = [facility], 153) [address]: Associate Professor Of Mathematics/Techni wendi ID = [id number] for DEBORA HOWARD POCT-GLUCOSE [id number] 17:14:40 Test Item Value Reference Range Interpretation Comments POC-GLUCOSE METER 94 mg/dL 70-110 : TESTED Radha Finley [facility] 67[address] (JUAN F) (test code = [place], 1538) [address]: Associate Professor Of Mathematics/Techni wendi ID = [id number] for Jennifer Santos CT, CHEST, WITHOUT [id number] 15:58:00Unlisted Reason for Exam - Click Yes and Enter Reason Below->YesUnlisted Reason for Exam->leukocytosis, chest pain post [facility] : 1940 Sex: FFINAL REPORT CT OF THE CHEST HISTORY: Leukocytosis, chest pain, recent aortocoronary bypass surgery COMPARISON: Chest radiograph from today, images of the lower chest from a CT abdomen of 07/23/2022 TECHNIQUE: CT of the chest was performed without contrast. Axial images were generated as were multiplanar reformatted images in the sagittal and coronal planes. The examination was perfo rmed to conform to our departmental dose optimization program which includes automated exposure control, adjustment of the mA and/or kV according to patient size and/or use of iterative reconstruction techniques. FINDINGS: There are postoperative changes consistent with recent aortocoronary bypass surgery. Sternotomy wires are present. No discrete mediastinal fluid collection is visualized. There is mild pericardial thickening. No significant pericardial effusion. There is a subcutaneous hyperdense focus just inferior to the most inferior sternotomy wire measuring 2.4 cm transaxially by 5.0 cm craniocaudally. No gas is seen within this. This may represent a subcutaneous hematoma. There is no focally prominent surrounding subcutaneous edema to suggest that this represents a subcutaneous abscess. There are small bilateral pleural effusions with areas of adjacent compressive atelectasis at the lungbases. There is mild ascites. There are faint groundglass opacities in the bilateral perihilar region s and in the upper lobes which may reflect mild pulmonary edema. No pneumothorax. The heart is mildly enlarged. Coronary artery calcifications are present. Degenerative and hypertrophic changes are present in the spine. IMPRESSION: 1. Postoperative changes consistent recent aortocoronary bypass surgery. Hyperdense subcutaneous fluid collection just anterior inferior to the inferior sternum, which mayrepresent a small subcutaneous hematoma. 2. Small bilateral pleural effusions with adjacent compressive atelectasis in the lower lungs. 3. Mild symmetrical ground glass opacities in the perihilar regions and upper lungs, which may reflect mild pulmonary edema. Signed: Jayashree [place] Verified Date/Time: 07/26/2022 15:58:22 Reading Location: [address] Transitional Reading Room POCT-GLUCOSE [id number] 13:40:20 Test Item Value Reference Range Interpretation Comments POC-GLUCOSE METER 117 mg/dL 70-110 H : TESTED A T [facility] [address] (BEAKER) (test code = [facility], 1538) [address]: Associate Professor Of Mathematics/Techni wendi ID = [id number] for Allegra Guerral Lactate dehydrogenase (LDH), body [id number] 12:57:42 Test Item Value Reference Range Interpretation Comments LDH, Fluid (test 133 U/L code = 76525-1) JANEEN (test code = Absence of reference JANEEN) range indicates that normals have not been defined.Assay performance has not been validated for this type of specimen. Associate Professor Of Mathematics ID - DSAMINATA [facility] CenterLACTATE DEHYDROGENASE (LDH), BODY [id number] 12:57:42 Test Item Value Reference Range Interpretation Comments LACTATE DEHYDROGENASE FLUID (BEAKER) 133 U/L (test code = 634) Absence of reference range indicates that normals have not been defined.Assay performance has not been validated for this type of specimen.Associate Professor Of Mathematics ID - HANSProtein, body [id number] 12:54:17 Test Item Value Reference Range Interpretation Comments Protein, Fluid (test 2.3 g/dL code = 2881-1) JANEEN (test code = Absence of reference JANEEN) range indicates that normals have not been defined.Assay performance has not been validated for this type of specimen. Associate Professor Of Mathematics ID - HANS ZUNIGA [facility]PR[facility] [id number] 12:54:17 Test Item Value Reference Range Interpretation Comments PROTEIN FLUID (BEAKER) (test code = 2.3 g/dL 579) Absence of reference range indicates that normals have not been defined.Assay performance has not been validated for this type of specimen.Associate Professor Of Mathematics ID - HANSGlucose, body [id number] 12:54:01 Test Item Value Reference Range Interpretation Comments Glucose, Body Fluid 162 mg/dL (test code = 2344-0) JANEEN (test code = Absence of reference JANEEN) range indicates that normals have not been defined.Assay performance has not been validated for this type of specimen. Associate Professor Of Mathematics ID - HANS ZUNIGA [facility] HospitalGL[facility]SE, BODY [id number] 12:54:01 Test Item Value Reference Range Interpretation Comments GLUCOSE, BODY FLUID (BEAKER) (test 162 mg/dL code = 1528) Absence of reference range indicates that normals have not been defined.Assay performance has not been validated for this type of specimen.Associate Professor Of Mathematics ID - HANSPOCT-GLUCOSE [id number] 09:21:22 Test Item Value Reference Range Interpretation Comments POC-GLUCOSE METER 91 mg/dL 70-110 : TESTED A T [facility] 6720 (BEAKER) (test code = [place] [facility], 1538) [address]: Associate Professor Of Mathematics/Techni wendi ID = [id number] for [place] eMorroJennifer (CELLAVISION MANUAL DIFF)2022-07-26 08:07:38 Test Item Value Reference Range Interpretation Comments NEUTROPHILS - REL 87 % (CELLAVISION)(BEAKER) (test code = 2816) LYMPHOCYTES - REL 5 % (CELLAVISION)(BEAKER) (test code = 2817) MONOCYTES - REL 6 % (CELLAVISION)(BEAKER) (test code = 2818) MYELOCYTES - REL 2 % 0-0 H (CELLAVISION)(BEAKER) (test code = 2822) NEUTROPHILS - ABS 18.36 K/ul 1.56-6.13 H (CELLAVISION)(BEAKER) (test code = 2830) LYMPHOCYTES - ABS 1.06 K/ul 1.18-3.74 L (CELLAVISION)(BEAKER) (test code = 2831) MONOCYTES - ABS 1.27 K/uL 0.24-0.36 H (CELLAVISION)(BEAKER) (test code = 2832) MYELOCYTES-ABS 0.42 K/uL 0.00-0.00 H (CELLAVISION)(BEAKER) (test code = 2837) TOTAL COUNTED (BEAKER) (test code 100 = 1351) MANUAL NRBC PER 100 CELLS 4 /100 WBC 0-0 H (BEAKER) (test code = 1353) WBC MORPHOLOGY (BEAKER) (test Normal code = 487) PLT MORPHOLOGY (BEAKER) (test Normal code = 486) POLYCHROMATOPHILLIC RBCS(BEAKER) 1+ few (test code = 478) ANISOCYTOSIS (BEAKER) (test code 1+ few = 961) MICROCYTES (BEAKER) (test code = 1+ few 965) POIKILOCYTES (BEAKER) (test code 2+ moderate = 966) OVALOCYTES (BEAKER) (test code = 2+ moderate 477) ACANTHOCYTES (BEAKER) (test code 1+ few = 471) ARTIFACT (CELLAVISION)(BEAKER) Present (test code = 3432) PLATELET CONCENTRATION Adequate (CELLAVISION)(BEAKER) (test code = 3438) Associate Professor Of Mathematics ID - Helena OverholtUser comments: Slide comments:CBC W/PLT COUNT & AUTO [id number] 08:07:37 Test Item Value Reference Range Interpretation Comments WHITE BLOOD CELL COUNT (BEAKER) 21.1 K/ L 3.5-10.5 H (test code = 775) RED BLOOD CELL COUNT (BEAKER) 2.91 M/ L 3.93-5.22 L (test code = 761) HEMOGLOBIN (BEAKER) (test code = 8.8 GM/DL 11.2-15.7 L 410) HEMATOCRIT (BEAKER) (test code = 26.8 % 34.1-44.9 L 411) MEAN CORPUSCULAR VOLUME (BEAKER) 92 fL 79-95 (test code = 753) MEAN CORPUSCULAR HEMOGLOBIN 30.2 pg 25.6-32.2 (BEAKER) (test code = 751) MEAN CORPUSCULAR HEMOGLOBIN CONC 32.8 GM/DL 32.2-35.5 (BEAKER) (test code = 752) RED CELL DISTRIBUTION WIDTH 15.3 % 11.7-14.4 H (BEAKER) (test code = 412) PLATELET COUNT (BEAKER) (test 251 K/CU MM 150-450 code = 756) MEAN PLATELET VOLUME (BEAKER) 10.1 fL 9.4-12.3 (test code = 754) NUCLEATED RED BLOOD CELLS 2 /100 WBC 0-0 H (BEAKER) (test code = 413) RAD, CHEST, 1 VIEW, NON [id number] 08:02:00Reason for exam:->respiratory insufficiencyShould this be performed at the bedside?->Yes [facility] 1940 Sex: FFINAL REPORT RAD, CHEST, 1 VIEW, NON DEPT INDICATION: respiratory insufficiency COMPARISON: Prior day's exam FINDINGS: Portable frontal view of the chest. IMPRESSION: Support Lines: Sternotomy wires. Overlying leads/monitors. Lungs and pleura: Bilateral effusions and adjacent atelectasis, unchanged. No significant pneumothorax. Heart and mediastinum: Stable contours. Additional findings: None. Signed: Tiera Borrero Verified Date/Time: 07/26/2022 08:02:08 BASIC METABOLIC [id number] 06:21:14 Test Item Value Reference Range Interpretation Comments SODIUM (BEAKER) 123 meq/L 136-145 L (test code = 381) POTASSIUM 4.5 meq/L 3.5-5.1 (BEAKER) (test code = 379) CHLORIDE (BEAKER) 88 meq/L 98-107 L (test code = 382) CO2 (BEAKER) 23 meq/L 22-29 (test code = 355) BLOOD UREA 35 mg/dL 7-21 H NITROGEN (BEAKER) (test code = 354) CREATININE 2.87 mg/dL 0.57-1.25 H (BEAKER) (test code = 358) GLUCOSE RANDOM 91 mg/dL 70-105 (BEAKER) (test code = 652) CALCIUM (BEAKER) 8.3 mg/dL 8.4-10.2 L (test code = 697) EGFR (BEAKER) 16 Interpretatio n of eGFR (test code = mL/min/1.73 values Stage De scription 1092) sq m Result G1 Norm al or high >=90 G2 Mildly decreased 60-89 G3a Mildl y to moderately 45-5 9 G3b Moderately to s everely 30-44 G4 Severl y decreased 15-29 G5 Kidne y failure <15Reported eGF R is based on the CKD-EPI 2020 equation that d oes not use a race coefficientEsti mated GFR is not as accur ate as Creatinine Susanne lund in predicting glom erular filtration rate . Estimated GFR is not appl icable for dialysis patien ts Associate Professor Of Mathematics ID - MARIO [id number] 06:09:41 Test Item Value Reference Range Interpretation Comments MAGNESIUM (BEAKER) (test code = 2.8 mg/dL 1.6-2.6 H 627) Associate Professor Of Mathematics ID - MARIO [id number] 06:09:41 Test Item Value Reference Range Interpretation Comments PHOSPHORUS (BEAKER) (test code = 5.4 mg/dL 2.3-4.7 H 604) Associate Professor Of Mathematics ID - MARIO LC-REACTIVE [id number] 06:09:41 Test Item Value Reference Range Interpretation Comments C-REACTIVE PROTEIN (BEAKER) (test 5.69 mg/dL 0.00-0.50 H code = 676) Associate Professor Of Mathematics ID - MARIO LB-TYPE NATRIURETIC FACTOR (BNP)2022-07-26 05:59:40 Test Item Value Reference Range Interpretation Comments B-TYPE NATRIURETIC PEPTIDE (JENNIFERAKER) 805 pg/mL 0-100 H (test code = 700) Associate Professor Of Mathematics ID - PIAYA LPOCT-GLUCOSE [id number] 21:02:00 Test Item Value Reference Range Interpretation Comments POC-GLUCOSE METER 122 mg/dL 70-110 H : TESTED A T [facility]20 ([employer]) (test code = [facility] Latisha [facility], 1538) [address]: Associate Professor Of Mathematics/Techni wendi ID = [id number] for DEBORA HOWARD RAD, CHEST, 1 VIEW, NON [id number] 20:12:00Reason for exam:->evaluate progression of left ptx post left thoracentesisShould this be performed at the bedside?->[facility] : 1940 Sex: FFINAL REPORT CLINICAL INDICATION: evaluate progression of left ptx post left thoracentesis Comparison: 07/25/2022 at 1345 hours The cardiomediastinal contours are stable. Central pulmonary vascular congestion and bilateral parenchymal and pleural opacities are unchanged. The previously seen trace left apical pneumothorax is no longer evident. Signed: Brody Ordoñez Verified Date/Time: 07/25/2022 20:12:38 POCT-GLUCOSE [id number] 16:48:40 Test Item Value Reference Range Interpretation Comments POC-GLUCOSE METER 134 mg/dL 70-110 H : TESTED A T [facility] 6720 ([employer]) (test code = [facility], 1538) [address]: Associate Professor Of Mathematics/Techni wendi ID = [id number] for JANAY STEWARD RAD, CHEST, 1 VIEW, NON [id number] 16:34:00Reason for exam:->left side thoracentesisShould this be performed at the bedside?->Yes [facility] : 1940 Sex: FAddendum BeginsREPORT STATUS:A Addendum: Small left pneumothorax findings were relayed to in-house attending at 10 of this dictation by Dr. Borrero. Repeat chest x-ray in two hours is suggested (to ensure that pneumothorax is not enlarge). Signed: Tiera Borrero Verified Da te/Time: 07/25/2022 16:34:41 Addendum EndsFINAL REPORT INDICATION: left side thoracentesis COMPARISON: Earlier same day TECHNIQUE: Single frontal view of the chest. FINDINGS: Lungsand pleura: Trace left apical pneumothorax status post thoracentesis. Decreased left pleural effusion.Heart and mediastinum: Normal heart size. Unremarkable mediastinal contours.Osseous structures: No acute abnormality.Other: Sternotomy wires. IMPRESSION: Trace left apical pneumothorax status post thoracentesis. Repeat chest x-ray in two hours is suggested. Signed: Tiera Borrero Verified Date/Time: 07/25/2022 16:10:15 Limited 2D [id number] 16:26:31Ejection FractionSLEH ECHO HEARTLAB MKCKESSON CPACHI [facility] with [id number] 15:51:00 Test Item Value Reference Range Interpretation Comments Appearance (test code = Bloody Clear A 9335-1) Color (test code = Red Colorless, Straw A 6824-7) RBCs (test code = 732376 See_Comment H [Automate d message] 27497-1) The system [employer] h generated this result transmit salvador reference range : <=1 /cu mm. The reference range was not used to interpret this result as normal/abnormal . Adjusted WBC Count 1873 See_Comment H [Automat ed message] (test code = 15397-0) The sy stem which generated this result transmit salvador reference range : <=5 /cu mm. The reference range was not used to interpret this result as normal/abnormal . Adjusted lining 56 See_Comment H [Automated message] cells/Others (test code The system which = 36493-7) generated this result transmit salvador reference range : <=1 /cu mm. The reference range was not used to interpret this result as normal/abnormal . % Segs (test code = 7 % 15555-6) % Lymphs (test code = 15 % 17291-7) % Monos (test code = 77 % 73621-7) % Eos (test code = 1 % 38963-3) % Baso (test code = 0 % 87385-2) Container Body Fluid EDTA Tube (test code = 2873) Lab Interpretation Abnormal (test code = 64888-8) [facility] WITH [id number] 15:51:00 Test Item Value Reference Range Interpretation Comments APPEARANCE FLUID Bloody Clear A (BEAKER) (test code = 510) COLOR FLUID (BEAKER) Red Colorless, Straw A (test code = 511) RBC FLUID (BEAKER) 593374 /cu mm See_Comment H [Automa salvador (test code = 513) message] T he system which generated this result transmitted reference range : <=1. The refere nce range was not u sed to interpret th is result as normal/abnormal . ADJUSTED WBC FLUID 1873 /cu mm See_Comment H [Automat ed (BEAKER) (test code message] The system = 1691) which generated this result transmitted reference range : <=5. The refere nce range was not u sed to interpret th is result as normal/abnormal . LINING CELLS 56 /cu mm See_Comment H [Automated (BEAKER) (test code message] The system = 1590) which generated this result transmitted reference range : <=1. The refere nce range was not u sed to interpret th is result as normal/abnormal . NEUTROPHILS FLUID 7 % (BEAKER) (test code = 1656) LYMPHS FLUID 15 % (BEAKER) (test code = 488) MONO/MACROPHAGE 77 % FLUID (BEAKER) (test code = 489) EOSINOPHILS FLUID 1 % (BEAKER) (test code = 491) BASO FLUID (BEAKER) 0 % (test code = 492) CONTAINER BODY FLUID EDTA Tube (BEAKER) (test code = 2873) BASIC METABOLIC [id number] 15:39:45 Test Item Value Reference Range Interpretation Comments SODIUM (BEAKER) 122 meq/L 136-145 L (test code = 381) POTASSIUM 4.2 meq/L 3.5-5.1 (BEAKER) (test code = 379) CHLORIDE (BEAKER) 87 meq/L 98-107 L (test code = 382) CO2 (BEAKER) 26 meq/L 22-29 (test code = 355) BLOOD UREA 31 mg/dL 7-21 H NITROGEN (BEAKER) (test code = 354) CREATININE 2.49 mg/dL 0.57-1.25 H (BEAKER) (test code = 358) GLUCOSE RANDOM 152 mg/dL 70-105 H (BEAKER) (test code = 652) CALCIUM (BEAKER) 8.0 mg/dL 8.4-10.2 L (test code = 697) EGFR (BEAKER) 19 Interpretatio n of eGFR (test code = mL/min/1.73 values Stage De scription 1092) sq m Result G1 Cecilia l or high >=90 G2 Mildly decreased 60-89 G3a Mildl y to moderately 45-5 9 G3b Moderately to s everely 30-44 G4 Severl y decreased 15-29 G5 Kidney failure <15Reported eGF R is based on the CKD-EPI 2020 equation that d oes not use a race coefficientEsti mated GFR is not as accur ate as Creatinine Susanne kevon in predicting glom erular filtration rate . Estimated GFR is not appl icable for dialysis patien ts Associate Professor Of Mathematics ID - SANTI M(CELLAVISION MANUAL DIFF)2022-07-25 12:17:05 Test Item Value Reference Range Interpretation Comments NEUTROPHILS - REL 81 % (CELLAVISION)(BEAKER) (test code = 2816) LYMPHOCYTES - REL 9 % (CELLAVISION)(BEAKER) (test code = 2817) MONOCYTES - REL 6 % (CELLAVISION)(BEAKER) (test code = 2818) MYELOCYTES - REL 4 % 0-0 H (CELLAVISION)(BEAKER) (test code = 2822) NEUTROPHILS - ABS 13.04 K/ul 1.56-6.13 H (CELLAVISION)(BEAKER) (test code = 2830) LYMPHOCYTES - ABS 1.45 K/ul 1.18-3.74 (CELLAVISION)(BEAKER) (test code = 2831) MONOCYTES - ABS 0.97 K/uL 0.24-0.36 H (CELLAVISION)(BEAKER) (test code = 2832) MYELOCYTES-ABS 0.64 K/uL 0.00-0.00 H (CELLAVISION)(BEAKER) (test code = 2837) TOTAL COUNTED (BEAKER) (test code 100 = 1351) MANUAL NRBC PER 100 CELLS 3 /100 WBC 0-0 H (BEAKER) (test code = 1353) WBC MORPHOLOGY (BEAKER) (test Normal code = 487) PLT MORPHOLOGY (BEAKER) (test Normal code = 486) POLYCHROMATOPHILLIC RBCS(BEAKER) 1+ few (test code = 478) ANISOCYTOSIS (BEAKER) (test code 1+ few = 961) POIKILOCYTES (BEAKER) (test code 2+ moderate = 966) SCHISTOCYTES (BEAKER) (test code 1+ few = 765) ELLIPTOCYTES (BEAKER) (test code 1+ few = 962) OVALOCYTES (BEAKER) (test code = 2+ moderate 477) BASOPHILIC STIPPLING (BEAKER) Present (test code = 473) ARTIFACT (CELLAVISION)(BEAKER) Present (test code = 3432) PLATELET CONCENTRATION Adequate (CELLAVISION)(BEAKER) (test code = 3438) Associate Professor Of Mathematics ID - Helena OverholtUser comments: Slide comments:CBC W/PLT COUNT & AUTO [id number] 12:17:04 Test Item Value Reference Range Interpretation Comments WHITE BLOOD CELL COUNT (BEAKER) 16.1 K/ L 3.5-10.5 H (test code = 775) RED BLOOD CELL COUNT (BEAKER) 2.99 M/ L 3.93-5.22 L (test code = 761) HEMOGLOBIN (BEAKER) (test code = 9.1 GM/DL 11.2-15.7 L 410) HEMATOCRIT (BEAKER) (test code = 27.8 % 34.1-44.9 L 411) MEAN CORPUSCULAR VOLUME (BEAKER) 93 fL 79-95 (test code = 753) MEAN CORPUSCULAR HEMOGLOBIN 30.4 pg 25.6-32.2 (BEAKER) (test code = 751) MEAN CORPUSCULAR HEMOGLOBIN CONC 32.7 GM/DL 32.2-35.5 (BEAKER) (test code = 752) RED CELL DISTRIBUTION WIDTH 15.3 % 11.7-14.4 H (BEAKER) (test code = 412) PLATELET COUNT (BEAKER) (test 319 K/CU MM 150-450 code = 756) MEAN PLATELET VOLUME (BEAKER) 9.9 fL 9.4-12.3 (test code = 754) NUCLEATED RED BLOOD CELLS 2 /100 WBC 0-0 H (BEAKER) (test code = 413) POCT-GLUCOSE [id number] 11:33:13 Test Item Value Reference Range Interpretation Comments POC-GLUCOSE METER 170 mg/dL 70-110 H : TESTED A T [facility] 6720 (BEAKER) (test code = [place], 1538) [address]: Associate Professor Of Mathematics/Techni wendi ID = [id number] for JANAY STEWARD [id number] 10:33:28 Test Item Value Reference Range Interpretation Comments PROTIME (BEAKER) (test 16.3 seconds 11.9-14.2 H code = 759) INR (BEAKER) (test 1.40 See_Comment [Automat ed code = 370) message] The sy stem which generated this result transmitted reference range : <=5.90. The reference range was not used to interpret this result as normal/abnormal . PARTIAL THROMBOPLASTIN 50.2 seconds 22.5-36.0 H TIME (BEAKER) (test code = 760) RECOMMENDED COUMADIN/WARFARIN INR THERAPY RANGESSTANDARD DOSE: 2.0 - 3.0 Includes: PROPHYLAXIS for venous thrombosis, systemic embolization; TREATMENT for venous thrombosis and/or pulmonary embolus.HIGH RISK: Target INR is 2.5-3.5 for patients with mechanical heart valves.RAD, CHEST, 1 VIEW, NON [id number] 07:44:00Reason for exam:->respiratory insufficiencyShould this be performed at the bedside?->Yes [facility] : 1940 Sex: FFINAL REPORT RAD, CHEST, 1 VIEW, NON DEPT INDICATION: respiratory insufficiency COMPARISON: Prior day's exam FINDINGS: Portable frontal view of the chest. IMPRESSION: Support Lines: Sternotomy wires. Lungs and pleura: Moderate left effusion and bilateral lower lobe airspace disease are unchanged. No significant pneumothorax. Heart and mediastinum: Normal contours. Additional findings: None. Signed: Tiera Borrero Verified Date/Time: 07/25/2022 07:44:36 [id number] 07:08:58 Test Item Value Reference Range Interpretation Comments CORTISOL, TOTAL (BEAKER) (test 20.8 ug/dL 3.7-19.4 H code = 2755) Associate Professor Of Mathematics ID - SANTI MBASIC METABOLIC [id number] 07:05:13 Test Item Value Reference Range Interpretation Comments SODIUM (BEAKER) 122 meq/L 136-145 L (test code = 381) POTASSIUM 4.2 meq/L 3.5-5.1 (BEAKER) (test code = 379) CHLORIDE (BEAKER) 89 meq/L 98-107 L (test code = 382) CO2 (BEAKER) 21 meq/L 22-29 L (test code = 355) BLOOD UREA 29 mg/dL 7-21 H NITROGEN (BEAKER) (test code = 354) CREATININE 2.24 mg/dL 0.57-1.25 H (BEAKER) (test code = 358) GLUCOSE RANDOM 149 mg/dL 70-105 H (BEAKER) (test code = 652) CALCIUM (BEAKER) 8.3 mg/dL 8.4-10.2 L (test code = 697) EGFR (BEAKER) 22 Interpretatio n of eGFR (test code = mL/min/1.73 values Stage De scription 1092) sq m Result G1 Cecilia l or high >=90 G2 Mildly decreased 60-89 G3a Mildl y to moderately 45-5 9 G3b Moderately to s everely 30-44 G4 Severl y decreased 15-29 G5 Kidney failure <15Reported eGF R is based on the CKD-EPI 2020 equation that d oes not use a race coefficientEsti mated GFR is not as accur ate as Creatinine Susanne lund in predicting glom erular filtration rate . Estimated GFR is not appl icable for dialysis patien ts Associate Professor Of Mathematics ID - SANTI [id number] 07:00:19 Test Item Value Reference Range Interpretation Comments MAGNESIUM (BEAKER) (test code = 2.7 mg/dL 1.6-2.6 H 627) Associate Professor Of Mathematics ID - SANTI [id number] 07:00:19 Test Item Value Reference Range Interpretation Comments PHOSPHORUS (BEAKER) (test code = 5.1 mg/dL 2.3-4.7 H 604) Associate Professor Of Mathematics ID - SANTI MPOCT-GLUCOSE [id number] 06:57:33 Test Item Value Reference Range Interpretation Comments POC-GLUCOSE METER 140 mg/dL 70-110 H : TESTED A T [facility] (BEAKER) (test code = [place], 1538) [address]: Associate Professor Of Mathematics/Techni wendi ID = [id number] for [place] JANAY MIKE POCT-GLUCOSE [id number] 21:04:53 Test Item Value Reference Range Interpretation Comments POC-GLUCOSE METER 183 mg/dL 70-110 H : TESTED A T [facility] 6720 (BEAKER) (test code = [place], 1538) [address]: Associate Professor Of Mathematics/Techni wendi ID = [id number] for PE GARRISON LIPSCOMB BASIC METABOLIC [id number] 18:18:42 Test Item Value Reference Range Interpretation Comments SODIUM (BEAKER) 122 meq/L 136-145 L (test code = 381) POTASSIUM 3.8 meq/L 3.5-5.1 (BEAKER) (test code = 379) CHLORIDE (BEAKER) 90 meq/L 98-107 L (test code = 382) CO2 (BEAKER) 25 meq/L 22-29 (test code = 355) BLOOD UREA 28 mg/dL 7-21 H NITROGEN (BEAKER) (test code = 354) CREATININE 1.82 mg/dL 0.57-1.25 H (BEAKER) (test code = 358) GLUCOSE RANDOM 154 mg/dL 70-105 H (BEAKER) (test code = 652) CALCIUM (BEAKER) 7.9 mg/dL 8.4-10.2 L (test code = 697) EGFR (BEAKER) 28 Interpretatio n of eGFR (test code = mL/min/1.73 values Stage De scription 1092) sq m Result G1 Cecilia l or high >=90 G2 Mildly decreased 60-89 G3a Mildl y to moderately 45-5 9 G3b Moderately to s everely 30-44 G4 Severl y decreased 15-29 G5 Kidney failure <15Reported eGF R is based on the CKD-EPI 1 equation that d oes not use a race coefficientEsti mated GFR is not as accur ate as Creatinine Susanne lund in predicting glom erular filtration rate . Estimated GFR is not appl icable for dialysis patien ts Associate Professor Of Mathematics ID - BSPOCT-GLUCOSE [id number] 16:46:26 Test Item Value Reference Range Interpretation Comments POC-GLUCOSE METER 176 mg/dL 70-110 H : TESTED A T [facility] 6720 (BEAKER) (test code = [place], 153) [address]: Associate Professor Of Mathematics/Techni wendi ID = [id number] for Do minguez, Jerome RAD, CHEST, 1 VIEW, NON [id number] 12:21:00Reason for exam:->respiratory insufficiencyShould this be performed at the bedside?->Yes [facility] 1940 Sex: FFINAL REPORT CLINICAL HISTORY: respiratory insufficiency TECHNIQUE: 1 view of the chest. COMPARISON: 07/23/2022 IMPRESSION: Diffuse left hemithorax pleural-parenchymal opacity unchanged. Right lung base airspace opacity and small right pleural effusion unchanged. The cardiomediastinal silhouette is magnified by technique with sternotomy wires. Signed: Cory Banks MDReport VerifiedDate/Time: 07/24/2022 12:21:43 Reading Location: [address] Reading Room Electronicallysigned by: CORY BANKS M.D. on 07/24/2022 12:21 PMPOCT-GLUCOSE [id number] 11:45:51 Test Item Value Reference Range Interpretation Comments POC-GLUCOSE METER 220 mg/dL 70-110 H : TESTED A T [facility] [address] ([employer]) (test code = [place], 1538) [address]: Associate Professor Of Mathematics/Techni wendi ID = [id number] for Do Jerome cordero LACTIC ACID, [id number] 11:44:34 Test Item Value Reference Range Interpretation Comments LACTATE BLOOD VENOUS 1.07 mmol/L 0.50-2.20 Specime n slightly (2) (BEAKER) (test hemolyzed code = 2872) Associate Professor Of Mathematics ID - SANTI MVITAMIN [id number] 11:13:20 Test Item Value Reference Range Interpretation Comments VITAMIN B12 (BEAKER) (test code = 315 pg/mL 213-816 774) Associate Professor Of Mathematics ID - SANTI MTSH/FREE T4 IF [id number] 11:13:20 Test Item Value Reference Range Interpretation Comments THYROID STIMULATING HORMONE 3.476 uIU/mL 0.350-4.940 (BEAKER) (test code = 772) Associate Professor Of Mathematics ID - SANTI MCREATINE KINASE (CK)2022-07-24 10:45:30 Test Item Value Reference Range Interpretation Comments CREATINE KINASE TOTAL (BEAKER) (test 65 U/L 29-200 code = 380) Associate Professor Of Mathematics ID - SANTI MPOCT-GLUCOSE [id number] 08:26:30 Test Item Value Reference Range Interpretation Comments POC-GLUCOSE METER 146 mg/dL 70-110 H : TESTED A T [facility] (BEAKER) (test code = [place], 1538) [address]: Associate Professor Of Mathematics/Techni wendi ID = [id number] for Do shelbyJerome plata HEPATIC FUNCTION [id number] 05:32:43 Test Item Value Reference Range Interpretation Comments TOTAL PROTEIN (BEAKER) (test code = 6.0 gm/dL 6.0-8.3 770) ALBUMIN (BEAKER) (test code = 1145) 3.6 g/dL 3.5-5.0 BILIRUBIN TOTAL (BEAKER) (test code 0.8 mg/dL 0.2-1.2 = 377) BILIRUBIN DIRECT (BEAKER) (test 0.4 mg/dL 0.1-0.5 code = 706) ALKALINE PHOSPHATASE (BEAKER) (test 65 U/L 40-150 code = 346) AST (SGOT) (BEAKER) (test code = 19 U/L 5-34 353) ALT (SGPT) (BEAKER) (test code = 10 U/L 6-55 347) Associate Professor Of Mathematics ID - SANTI [id number] 05:32:43 Test Item Value Reference Range Interpretation Comments LIPASE (BEAKER) (test code = 749) 37 U/L 8-78 Associate Professor Of Mathematics ID - SANTI MBASIC METABOLIC [id number] 05:32:42 Test Item Value Reference Range Interpretation Comments SODIUM (BEAKER) 121 meq/L 136-145 L (test code = 381) POTASSIUM 3.9 meq/L 3.5-5.1 (BEAKER) (test code = 379) CHLORIDE (BEAKER) 87 meq/L 98-107 L (test code = 382) CO2 (BEAKER) 24 meq/L 22-29 (test code = 355) BLOOD UREA 24 mg/dL 7-21 H NITROGEN (BEAKER) (test code = 354) CREATININE 1.52 mg/dL 0.57-1.25 H (BEAKER) (test code = 358) GLUCOSE RANDOM 152 mg/dL 70-105 H (BEAKER) (test code = 652) CALCIUM (BEAKER) 8.4 mg/dL 8.4-10.2 (test code = 697) EGFR (BEAKER) 34 Interpretati on of eGFR (test code = mL/min/1.73 values Stage De scription 1092) sq m Result G1 Cecilia l or high >=90 G2 Mildly decreased 60-89 G3a Mildl y to moderately 45-5 9 G3b Moderately to s everely 30-44 G4 Severl y decreased 15-29 G5 Kidney failure <15Reported eGF R is based on the CKD-EPI 2020 equation that d oes not use a race coefficientEsti mated GFR is not as accur ate as Creatinine Susanne kevon in predicting glom erular filtration rate . Estimated GFR is not appl icable for dialysis patien ts Associate Professor Of Mathematics ID - SANTI [id number] 05:32:42 Test Item Value Reference Range Interpretation Comments MAGNESIUM (BEAKER) (test code = 2.3 mg/dL 1.6-2.6 627) Associate Professor Of Mathematics ID - SANTI [id number] 05:32:42 Test Item Value Reference Range Interpretation Comments PHOSPHORUS (BEAKER) (test code = 3.6 mg/dL 2.3-4.7 604) Associate Professor Of Mathematics ID - SANTI [id number] 05:27:40 Test Item Value Reference Range Interpretation Comments FERRITIN (BEAKER) (test code = 291.58 ng/mL 5.00-275.00 H 361) Associate Professor Of Mathematics ID - SANTI YUDI, TIBC, % SAT. (WITHOUT FERRITIN)2022-07-24 05:06:51 Test Item Value Reference Range Interpretation Comments IRON (BEAKER) (test code = 547) 67.0 ug/dL 40.0-160.0 TOTAL IRON BINDING CAPACITY 261 ug/dL 250-450 (BEAKER) (test code = 769) IRON % SATURATION (2) (BEAKER) 26 % 20-55 (test code = 2590) Associate Professor Of Mathematics SANTO HANCOCK [facility] W/PLT COUNT & AUTO [id number] 05:02:22 Test Item Value Reference Range Interpretation Comments WHITE BLOOD CELL COUNT (BEAKER) 11.4 K/ L 3.5-10.5 H (test code = 775) RED BLOOD CELL COUNT (BEAKER) 2.88 M/ L 3.93-5.22 L (test code = 761) HEMOGLOBIN (BEAKER) (test code = 8.6 GM/DL 11.2-15.7 L 410) HEMATOCRIT (BEAKER) (test code = 26.2 % 34.1-44.9 L 411) MEAN CORPUSCULAR VOLUME (BEAKER) 91 fL 79-95 (test code = 753) MEAN CORPUSCULAR HEMOGLOBIN 29.9 pg 25.6-32.2 (BEAKER) (test code = 751) MEAN CORPUSCULAR HEMOGLOBIN CONC 32.8 GM/DL 32.2-35.5 (BEAKER) (test code = 752) RED CELL DISTRIBUTION WIDTH 14.6 % 11.7-14.4 H (BEAKER) (test code = 412) PLATELET COUNT (BEAKER) (test 296 K/CU MM 150-450 code = 756) MEAN PLATELET VOLUME (BEAKER) 9.7 fL 9.4-12.3 (test code = 754) NUCLEATED RED BLOOD CELLS 1 /100 WBC 0-0 H (BEAKER) (test code = 413) NEUTROPHILS RELATIVE PERCENT 71 % (BEAKER) (test code = 429) LYMPHOCYTES RELATIVE PERCENT 14 % (BEAKER) (test code = 430) MONOCYTES RELATIVE PERCENT 9 % (BEAKER) (test code = 431) EOSINOPHILS RELATIVE PERCENT 0 % (BEAKER) (test code = 432) BASOPHILS RELATIVE PERCENT 0 % (BEAKER) (test code = 437) NEUTROPHILS ABSOLUTE COUNT 8.14 K/ L 1.56-6.13 H (BEAKER) (test code = 670) LYMPHOCYTES ABSOLUTE COUNT 1.60 K/ L 1.18-3.74 (BEAKER) (test code = 414) MONOCYTES ABSOLUTE COUNT (BEAKER) 1.07 K/ L 0.24-0.36 H (test code = 415) EOSINOPHILS ABSOLUTE COUNT 0.02 K/ L 0.04-0.36 L (BEAKER) (test code = 416) BASOPHILS ABSOLUTE COUNT (BEAKER) 0.02 K/ L 0.01-0.08 (test code = 417) IMMATURE GRANULOCYTES-RELATIVE 4.70 % 0.00-1.00 H PERCENT (BEAKER) (test code = 2801) POCT-GLUCOSE [id number] 20:49:56 Test Item Value Reference Range Interpretation Comments POC-GLUCOSE METER 187 mg/dL 70-110 H : TESTED A T [facility] 6720 (BEAKER) (test code = [place], 1538) [address]: Associate Professor Of Mathematics/Techni ewndi ID = [id number] for PE RALES, GARRISON SODIUM, RANDOM [id number] 19:01:40 Test Item Value Reference Range Interpretation Comments SODIUM URINE (BEAKER) (test code = 29 meq/L 243) Reference Range: No NormalsOperator ID - BSCHLORIDE, RANDOM [id number] 19:01:40 Test Item Value Reference Range Interpretation Comments CHLORIDE URINE (BEAKER) (test code = 51 meq/L 20330 682) Reference Range: No NormalsOperator ID - BSOSMOLALITY, [id number] 18:56:19 Test Item Value Reference Range Interpretation Comments OSMOLALITY URINE 309 mOsm/kg See_Comment [Automated message] (BEAKER) (test code = The sy stem which 614) generated this result transmitted ref erence range: 50-1,200 mOsm/kg. The reference range was not used to int erpret this result as normal/abnormal . CT, [id number] 18:46:00Unlisted Reason for Exam - Click Yes and Enter Reason Below->NoIs this for enterography?->NoWill this procedure require oral contrast?->Yes [facility]: 1940 Sex: FFINAL REPORT ABDOMINAL AND PELVIS CT DATED 07/23/2022 CLINICAL INFORMATION: Abdominal pain, acute, nonlocalized TECHNIQUE: Axial images of the abdomen and pelvis were obtained from diaphragm to the pubic symphysis with intravenous contrast. This exam was performed according to our departmental dose-optimization program, which includes automated exposure control, adjustment of the mAand/or kV according to patient size and/or use of interactive reconstruction technique. COMMENT: There is small bilateral pleural effusion and bibasilar subsegmental atelectasis. Liver and spleen are normal in size without focal abnormality. Gallbladder is is not visualized. No biliary dilatation is no salvador. Pancreas is fatty replaced. The adrenals are unremarkable. Both kidneys are normal in size and functioning. No hydronephrosis, hydroureter, urolithiasis is seen. A 9 mm cyst is seen upper pole left kidney. Diverticular disease is seen in the large bowel without diverticulitis. The small bowel is normal in caliber. Appendix is not visualized. Uterus is atrophic. Both ovaries are unremarkable. Theurinary bladder is contracted. Subcutaneous is edema is seen in the abdomen and pelvis. Vascular calcification is seen in the abdominal aorta, splenic, hepatic, spleen mesenteric, inferior mesenteric, and bilateral iliac arteries. No mass, adenopathy or ascites is present. IMPRESSION: 1. Fatty replaced pancreas.2. Diverticular disease in the large bowel without diverticulitis.3. Vascular calcification in the abdominal aorta and branch vessels.4. Subcutaneous edema in the abdomen pelvis.5. Bilateral pleural effusion with bibasilar subsegmental atelectasis. Signed: Luis Jones Verified Date/Time: 07/23/2022 18:46:32 Reading Location: [facility] B1 C013Y CT Body Reading Room OSMOLALITY, [id number] 18:36:38 Test Item Value Reference Range Interpretation Comments OSMOLALITY, SERUM (BEAKER) (test 269 mOsm/kg 275-295 L code = 615) POCT-GLUCOSE [id number] 17:05:11 Test Item Value Reference Range Interpretation Comments POC-GLUCOSE METER 170 mg/dL 70-110 H : TESTED A T [facility] 6720 (BEAKER) (test code = [place], 1538) [address]: Associate Professor Of Mathematics/Techni wendi ID = [id number] for Natanael Payan U/S, [id number] 14:53:00Laterality?->LeftReason for exam:->pl effusionLabs to be Ordered:->No Labs Needed [facility] : 1940 Sex: FFINAL REPORT Ultrasound guided left thoracentesis. Clinical History: Left pleural effusion. Modality: Ultrasound. Sedation: None. Director Of Enterprise Architecture: Cherri Joyce PA-C Taping Foreman: None. Estimated Blood Loss: 1cc Specimen: 600 cc of nonclotting hemorrhagic fluid. Technique: Informed consent was obtained. The risks of pain, bleeding, infection, lung collapse/pneumothorax, injury to lety cent structures, and adverse medication reactions were discussed with the patient. The patient's left hemithorax was scanned from the back, with the patient in a sitting position. After the largest fluid pocket area was marked, the skin was prepped and draped in the usual sterile manner. The area was a nesthetized with 2% lidocaine, a 5 F one-step catheter was advanced into the pleural space under ultrasound guidance. After completion of drainage, the catheter was removed. There was no evidence of immediate complication. Post procedure chest x-ray is pending. Impression:Successful and uncomplicated u ltrasound guided left thoracentesis. Signed: Trupti Crespo Verified Date/Time: 07/23/2022 14:53:22 Reading Location: [facility] P006J Ultrasound Reading Room RAD, CHEST, 1 VIEW, NON [id number] 12:45:00Reason for exam:->respiratory insufficiencyShould this be performed at the bedside?->Yes [facility] : 1940 Sex: FFINAL REPORT CLINICAL HISTORY: respiratory insufficiency TECHNIQUE: 1 view of the chest. COMPARISON: 07/22/2022 IMPRESSION: Diffuse left hemithorax pleural-parenchymal opacity unchanged. Right lung base airspace opacity and small right pleural effusion unchanged. The cardiomediastinal silhouette is magnified by technique with sternotomy wires. Signed: Cory Banks VerifiedDate/Time: 07/23/2022 12:45:15 Reading Location: [address] Reading Room Electronicallysigned by: CORY BANKS M.D. on 07/23/2022 12:45 PMPOCT-GLUCOSE [id number] 11:49:49 Test Item Value Reference Range Interpretation Comments POC-GLUCOSE METER 194 mg/dL 70-110 H : TESTED A T [facility] 6720 (BEAKER) (test code = [place], 1538) [address]: Associate Professor Of Mathematics/Techni wendi ID = [id number] for Am Saima alejoo POCT-GLUCOSE [id number] 08:20:05 Test Item Value Reference Range Interpretation Comments POC-GLUCOSE METER 160 mg/dL 70-110 H : TESTED A T [facility] 6720 (BEAKER) (test code = [place], 1538) [address]: Associate Professor Of Mathematics/Techni wendi ID = [id number] for Am ador Natanael [id number] 06:35:51 Test Item Value Reference Range Interpretation Comments MAGNESIUM (BEAKER) (test code = 2.1 mg/dL 1.6-2.6 627) Associate Professor Of Mathematics ID - SANTI [id number] 06:35:51 Test Item Value Reference Range Interpretation Comments PHOSPHORUS (BEAKER) (test code = 3.0 mg/dL 2.3-4.7 604) Associate Professor Of Mathematics ID - SANTI MBASIC METABOLIC [id number] 06:35:50 Test Item Value Reference Range Interpretation Comments SODIUM (BEAKER) 125 meq/L 136-145 L (test code = 381) POTASSIUM 4.0 meq/L 3.5-5.1 (BEAKER) (test code = 379) CHLORIDE (BEAKER) 90 meq/L 98-107 L (test code = 382) CO2 (BEAKER) 26 meq/L 22-29 (test code = 355) BLOOD UREA 21 mg/dL 7-21 NITROGEN (BEAKER) (test code = 354) CREATININE 1.09 mg/dL 0.57-1.25 (BEAKER) (test code = 358) GLUCOSE RANDOM 165 mg/dL 70-105 H (BEAKER) (test code = 652) CALCIUM (BEAKER) 8.7 mg/dL 8.4-10.2 (test code = 697) EGFR (BEAKER) 51 Interpretatio n of eGFR (test code = mL/min/1.73 values Stage De scription 1092) sq m Result G1 Cecilia l or high >=90 G2 Mildly decreased 60-89 G3a Mildl y to moderately 45-5 9 G3b Moderately to s everely 30-44 G4 Severl y decreased 15-29 G5 Kidney failure <15Reported eGF R is based on the CKD-EPI 2020 equation that d oes not use a race coefficientEsti mated GFR is not as accur ate as Creatinine Susanne lund in predicting glom erular filtration rate . Estimated GFR is not appl icable for dialysis patien ts Associate Professor Of Mathematics ID - SANTI MCBC W/PLT COUNT & AUTO [id number] 06:07:39 Test Item Value Reference Range Interpretation Comments WHITE BLOOD CELL COUNT (BEAKER) 13.4 K/ L 3.5-10.5 H (test code = 775) RED BLOOD CELL COUNT (BEAKER) 3.06 M/ L 3.93-5.22 L (test code = 761) HEMOGLOBIN (BEAKER) (test code = 9.2 GM/DL 11.2-15.7 L 410) HEMATOCRIT (BEAKER) (test code = 27.7 % 34.1-44.9 L 411) MEAN CORPUSCULAR VOLUME (BEAKER) 91 fL 79-95 (test code = 753) MEAN CORPUSCULAR HEMOGLOBIN 30.1 pg 25.6-32.2 (BEAKER) (test code = 751) MEAN CORPUSCULAR HEMOGLOBIN CONC 33.2 GM/DL 32.2-35.5 (BEAKER) (test code = 752) RED CELL DISTRIBUTION WIDTH 14.6 % 11.7-14.4 H (BEAKER) (test code = 412) PLATELET COUNT (BEAKER) (test 267 K/CU MM 150-450 code = 756) MEAN PLATELET VOLUME (BEAKER) 9.6 fL 9.4-12.3 (test code = 754) NUCLEATED RED BLOOD CELLS 1 /100 WBC 0-0 H (BEAKER) (test code = 413) NEUTROPHILS RELATIVE PERCENT 74 % (BEAKER) (test code = 429) LYMPHOCYTES RELATIVE PERCENT 12 % (BEAKER) (test code = 430) MONOCYTES RELATIVE PERCENT 9 % (BEAKER) (test code = 431) EOSINOPHILS RELATIVE PERCENT 0 % (BEAKER) (test code = 432) BASOPHILS RELATIVE PERCENT 0 % (BEAKER) (test code = 437) NEUTROPHILS ABSOLUTE COUNT 9.92 K/ L 1.56-6.13 H (BEAKER) (test code = 670) LYMPHOCYTES ABSOLUTE COUNT 1.61 K/ L 1.18-3.74 (BEAKER) (test code = 414) MONOCYTES ABSOLUTE COUNT (BEAKER) 1.23 K/ L 0.24-0.36 H (test code = 415) EOSINOPHILS ABSOLUTE COUNT 0.04 K/ L 0.04-0.36 (BEAKER) (test code = 416) BASOPHILS ABSOLUTE COUNT (BEAKER) 0.05 K/ L 0.01-0.08 (test code = 417) IMMATURE GRANULOCYTES-RELATIVE 3.80 % 0.00-1.00 H PERCENT (BEAKER) (test code = 2801) POCT-GLUCOSE [id number] 21:08:30 Test Item Value Reference Range Interpretation Comments POC-GLUCOSE METER 138 mg/dL 70-110 H : TESTED A T [facility] 6720 (BEAKER) (test code = [facility], 1538) [address]: Associate Professor Of Mathematics/Techni wendi ID = [id number] for PE RALES, GARRISON POCT-GLUCOSE [id number] 16:43:37 Test Item Value Reference Range Interpretation Comments POC-GLUCOSE METER 137 mg/dL 70-110 H : TESTED A T [facility] 6720 (BEAKER) (test code = [facility] WriteOn [facility], 1538) [address]: Associate Professor Of Mathematics/Techni wendi ID = [id number] for HU NTER, HIWITHA RAD, CHEST, 1 VIEW, NON [id number] 13:07:00Reason for exam:->respiratory insufficiencyShould this be performed at the bedside?->Yes [facility] : 1940 Sex: FFINAL REPORT CLINICAL HISTORY: respiratory insufficiency TECHNIQUE: 1 view of the chest. COMPARISON: 07/21/2022 IMPRESSION: Diffuse left asymmetric airspace opacities and left pleuraleffusion are grossly unchanged. The cardiomediastinal silhouette is magnified by technique with sternotomy wires. Signed: Cory Banks MDReport Verified Date/Time: 07/22/2022 13:07:28 Reading Location: [address] Reading Room POCT-GLUCOSE [id number] 11:37:00 Test Item Value Reference Range Interpretation Comments POC-GLUCOSE METER 235 mg/dL 70-110 H : TESTED A T [place] [address] (BEAKER) (test code = [facility], 1538) [address]: Associate Professor Of Mathematics/Techni wendi ID = [id number] for CO RTEZ, LOBO POC ACTIVATED CLOTTING [id number] 08:38:34 Test Item Value Reference Range Interpretation Comments Activated Clotting Time 121 sec : 74 -137 seconds, (test code = 3184-9) Baselin e: TESTED AT [address], [address]: Associate Professor Of Mathematics/Techni wendi ID = [id number] for Ga rciaJessy [id number] 08:38:34 Test Item Value Reference Range Interpretation Comments ACTIVATED CLOTTING TIME 121 sec : 74 -137 seconds, (BEAKER) (test code = Baseli ne: TESTED AT 441) [address], [address]: Associate Professor Of Mathematics/Techni wendi ID = [id number] for Ga rcia, Jessy [id number] 08:38:33 Test Item Value Reference Range Interpretation Comments ACTIVATED CLOTTING TIME 491 sec : 74 -137 seconds, (BEAKER) (test code = Baseli ne: TESTED AT 441) [address], [address]: Associate Professor Of Mathematics/Techni wendi ID = [id number] for Ga rcia, Jessy [id number] 08:38:33 Test Item Value Reference Range Interpretation Comments ACTIVATED CLOTTING TIME 607 sec : 74 -137 seconds, (BEAKER) (test code = Baseli ne: TESTED AT 441) [address], [address]: Associate Professor Of Mathematics/Techni wendi ID = [id number] for Ga rcia, Jessy [id number] 08:38:33 Test Item Value Reference Range Interpretation Comments ACTIVATED CLOTTING TIME 584 sec : 74 -137 seconds, (BEAKER) (test code = Baseli ne: TESTED AT 441) [facility] 6720 [facility], [address]: Associate Professor Of Mathematics/Techni wendi ID = [id number] for Jessy Jimenez POCT-GLUCOSE [id number] 08:38:27 Test Item Value Reference Range Interpretation Comments POC-GLUCOSE METER 151 mg/dL 70-110 H : [facility]) (test code = [facility], 153) [address]: Associate Professor Of Mathematics/Techni wendi ID = [id number] for DENNYS DE LA O POCT-GLUCOSE [id number] 08:23:06 Test Item Value Reference Range Interpretation Comments POC-GLUCOSE METER 127 mg/dL 70-110 H : Notified RN/MD: ([facility]) (test code = TESTED AT [place] [address]) [facility], [address]: Associate Professor Of Mathematics/Techni wendi ID = [id number] for Mo rris, Umu POCT-GLUCOSE [id number] 08:23:05 Test Item Value Reference Range Interpretation Comments POC-GLUCOSE METER 122 mg/dL 70-110 H : [facility]) (test code = [facility], 153) [address]: Associate Professor Of Mathematics/Techni wendi ID = [id number] for DO RAMSAY, HOLLY POCT-GLUCOSE [id number] 08:23:05 Test Item Value Reference Range Interpretation Comments POC-GLUCOSE METER 177 mg/dL 70-110 H : Notified RN/MD: ([facility]) (test code = TESTED AT [place] [address]) [facility], [address]: Associate Professor Of Mathematics/Techni wendi ID = [id number] for Mo rris, Umu POCT-GLUCOSE [id number] 08:23:05 Test Item Value Reference Range Interpretation Comments POC-GLUCOSE METER 131 mg/dL 70-110 H : [facility]) (test code [facility], = 1538) [address]: Associate Professor Of Mathematics/Techni wendi ID = [id number] for Giancarlo gutierrez (contract), Chr istine POCT-GLUCOSE [id number] 08:23:05 Test Item Value Reference Range Interpretation Comments POC-GLUCOSE METER 97 mg/dL 70-110 : TESTED A T [facility] 6720 (BEAKER) (test code = [place] [facility], 1538) [address]: Associate Professor Of Mathematics/Techni wendi ID = [id number] for Sir Igor Rosado POCT-GLUCOSE [id number] 08:23:04 Test Item Value Reference Range Interpretation Comments POC-GLUCOSE METER 141 mg/dL 70-110 H : TESTED A T [facility] 6720 (BEAKER) (test code [facility], = 1538) [address]: Associate Professor Of Mathematics/Techni wendi ID = [id number] for REINALDO BURT POCT-GLUCOSE [id number] 07:27:58 Test Item Value Reference Range Interpretation Comments POC-GLUCOSE METER 157 mg/dL 70-110 H : TESTED A T [facility] 6720 (BEAKER) (test code = [place] [facility], 1538) [address]: Associate Professor Of Mathematics/Techni wendi ID = [id number] for ADALI MAYSWITHRadha [id number] 06:25:11 Test Item Value Reference Range Interpretation Comments MAGNESIUM (BEAKER) (test code = 2.1 mg/dL 1.6-2.6 627) Associate Professor Of Mathematics ID - SANTI [id number] 06:25:11 Test Item Value Reference Range Interpretation Comments PHOSPHORUS (BEAKER) (test code = 2.7 mg/dL 2.3-4.7 604) Associate Professor Of Mathematics ID - SANTI MBASIC METABOLIC [id number] 06:25:10 Test Item Value Reference Range Interpretation Comments SODIUM (BEAKER) 128 meq/L 136-145 L (test code = 381) POTASSIUM 3.8 meq/L 3.5-5.1 (BEAKER) (test code = 379) CHLORIDE (BEAKER) 93 meq/L 98-107 L (test code = 382) CO2 (BEAKER) 29 meq/L 22-29 (test code = 355) BLOOD UREA 16 mg/dL 7-21 NITROGEN (BEAKER) (test code = 354) CREATININE 0.84 mg/dL 0.57-1.25 (BEAKER) (test code = 358) GLUCOSE RANDOM 141 mg/dL 70-105 H (BEAKER) (test code = 652) CALCIUM (BEAKER) 8.6 mg/dL 8.4-10.2 (test code = 697) EGFR (BEAKER) 70 Interpretatio n of eGFR (test code = mL/min/1.73 values Stage De scription 1092) sq m Result G1 Cecilia l or high >=90 G2 Mildly decreased 60-89 G3a Mildl y to moderately 45-5 9 G3b Moderately to s everely 30-44 G4 Severl y decreased 15-29 G5 Kidney failure <15Reported eGF R is based on the CKD-EPI 2020 equation that d oes not use a race coefficientEsti mated GFR is not as accur ate as Creatinine Susanne kevon in predicting glom erular filtration rate . Estimated GFR is not appl icable for dialysis patien ts Associate Professor Of Mathematics ID - SANTI MCBC W/PLT COUNT & AUTO [id number] 05:58:05 Test Item Value Reference Range Interpretation Comments WHITE BLOOD CELL COUNT (BEAKER) 11.7 K/ L 3.5-10.5 H (test code = 775) RED BLOOD CELL COUNT (BEAKER) 3.11 M/ L 3.93-5.22 L (test code = 761) HEMOGLOBIN (BEAKER) (test code = 9.4 GM/DL 11.2-15.7 L 410) HEMATOCRIT (BEAKER) (test code = 27.7 % 34.1-44.9 L 411) MEAN CORPUSCULAR VOLUME (BEAKER) 89 fL 79-95 (test code = 753) MEAN CORPUSCULAR HEMOGLOBIN 30.2 pg 25.6-32.2 (BEAKER) (test code = 751) MEAN CORPUSCULAR HEMOGLOBIN CONC 33.9 GM/DL 32.2-35.5 (BEAKER) (test code = 752) RED CELL DISTRIBUTION WIDTH 14.4 % 11.7-14.4 (BEAKER) (test code = 412) PLATELET COUNT (BEAKER) (test 271 K/CU MM 150-450 code = 756) MEAN PLATELET VOLUME (BEAKER) 9.6 fL 9.4-12.3 (test code = 754) NUCLEATED RED BLOOD CELLS 1 /100 WBC 0-0 H (BEAKER) (test code = 413) NEUTROPHILS RELATIVE PERCENT 76 % (BEAKER) (test code = 429) LYMPHOCYTES RELATIVE PERCENT 13 % (BEAKER) (test code = 430) MONOCYTES RELATIVE PERCENT 8 % (BEAKER) (test code = 431) EOSINOPHILS RELATIVE PERCENT 0 % (BEAKER) (test code = 432) BASOPHILS RELATIVE PERCENT 0 % (BEAKER) (test code = 437) NEUTROPHILS ABSOLUTE COUNT 8.87 K/ L 1.56-6.13 H (BEAKER) (test code = 670) LYMPHOCYTES ABSOLUTE COUNT 1.54 K/ L 1.18-3.74 (BEAKER) (test code = 414) MONOCYTES ABSOLUTE COUNT (BEAKER) 0.98 K/ L 0.24-0.36 H (test code = 415) EOSINOPHILS ABSOLUTE COUNT 0.01 K/ L 0.04-0.36 L (BEAKER) (test code = 416) BASOPHILS ABSOLUTE COUNT (BEAKER) 0.04 K/ L 0.01-0.08 (test code = 417) IMMATURE GRANULOCYTES-RELATIVE 2.50 % 0.00-1.00 H PERCENT (BEAKER) (test code = 2801) POCT-GLUCOSE [id number] 22:51:01 Test Item Value Reference Range Interpretation Comments POC-GLUCOSE METER 200 mg/dL 70-110 H : TESTED A T [facility] 6720 (BEAKER) (test code = [facility], 1538) [address]: Associate Professor Of Mathematics/Techni wendi ID = [id number] for Erin Dominguez POCT-GLUCOSE [id number] 17:48:48 Test Item Value Reference Range Interpretation Comments POC-GLUCOSE METER 150 mg/dL 70-110 H : TESTED A T [facility] 6720 (BEAKER) (test code = [facility], 153) [address]: Associate Professor Of Mathematics/Techni wendi ID = [id number] for Sujit Diana RAD, ABDOMEN/KUB, 1 VIEW [id number] 14:17:00Reason for exam:->interval changeShould this be performed at the bedside?->Yes [facility] 1940 Sex: FFINAL REPORT TECHNIQUE: RAD, ABDOMEN/KUB, 1 VIEW AP INDICATION: interval change. COMPARISON: 07/20/2022 FINDINGS:Decreased in prominence of central small bowel loops. Mild gaseous distention of stomach, as before. Supine radiographs are insensitive for detection of free intraperitoneal air. IMPRESSION:Mild gaseous distention of stomach. Otherwise improvement/resolution of previously noted dilated gas-filled bowel within the central abdomen. Signed: Rik Richeyeport Verified Date/Time: 07/21/2022 14:17:54 POCT-GLUCOSE METER 2022-07-21 12:01:45 Test Item Value Reference Range Interpretation Comments POC-GLUCOSE METER 158 mg/dL 70-110 H : TESTED A T [facility] 6720 (BEAKER) (test code = [place], 1538) [address]: Associate Professor Of Mathematics/Techni wendi ID = [id number] for Domitila Saldivar RAD, CHEST, 1 VIEW, NON [id number] 09:52:00Reason for exam:->respiratory insufficiencyShould this be performed at the bedside?->Yes [facility] : 1940 Sex: FFINAL REPORT CLINICAL HISTORY: respiratory insufficiency TECHNIQUE: 1 view of the chest. COMPARISON: 07/20/2022 IMPRESSION: Diffuse bilateral airspace opacities and a small pleural effusion are similar appearing. The cardiomediastinal silhouette is magnified by technique with sternotomy wires. Signed: Cory Banks MDReport Verified Date/Time: 07/21/2022 09:52:47 Reading Location: [address] Reading Room POCT-GLUCOSE [id number] 08:47:10 Test Item Value Reference Range Interpretation Comments POC-GLUCOSE METER 147 mg/dL 70-110 H : TESTED A T [facility] 6720 (BEAKER) (test code = [place], 1538) [address]: Associate Professor Of Mathematics/Techni wendi ID = [id number] for Domitila Saldivar [id number] 05:04:49 Test Item Value Reference Range Interpretation Comments MAGNESIUM (BEAKER) (test code = 1.8 mg/dL 1.6-2.6 627) Associate Professor Of Mathematics ID - SANTI [id number] 05:04:49 Test Item Value Reference Range Interpretation Comments PHOSPHORUS (BEAKER) (test code = 2.1 mg/dL 2.3-4.7 L 604) Associate Professor Of Mathematics ID - SANTI MBASIC METABOLIC [id number] 05:04:48 Test Item Value Reference Range Interpretation Comments SODIUM (BEAKER) 133 meq/L 136-145 L (test code = 381) POTASSIUM 4.1 meq/L 3.5-5.1 (BEAKER) (test code = 379) CHLORIDE (BEAKER) 100 meq/L 98-107 (test code = 382) CO2 (BEAKER) 26 meq/L 22-29 (test code = 355) BLOOD UREA 17 mg/dL 7-21 NITROGEN (BEAKER) (test code = 354) CREATININE 0.82 mg/dL 0.57-1.25 (BEAKER) (test code = 358) GLUCOSE RANDOM 149 mg/dL 70-105 H (BEAKER) (test code = 652) CALCIUM (BEAKER) 8.9 mg/dL 8.4-10.2 (test code = 697) EGFR (BEAKER) 72 Interpretatio n of eGFR (test code = mL/min/1.73 values Stage De scription 1092) sq m Result G1 Cecilia l or high >=90 G2 Mildly decreased 60-89 G3a Mildl y to moderately 45-5 9 G3b Moderately to s everely 30-44 G4 Severl y decreased 15-29 G5 Kidney failure <15Reported eGF R is based on the CKD-EPI 2020 equation that d oes not use a race coefficientEsti mated GFR is not as accur ate as Creatinine Susanne kevon in predicting glom erular filtration rate . Estimated GFR is not appl icable for dialysis patien ts Associate Professor Of Mathematics ID - SANTI MCBC W/PLT COUNT & AUTO [id number] 04:51:35 Test Item Value Reference Range Interpretation Comments WHITE BLOOD CELL COUNT (BEAKER) 11.1 K/ L 3.5-10.5 H (test code = 775) RED BLOOD CELL COUNT (BEAKER) 3.18 M/ L 3.93-5.22 L (test code = 761) HEMOGLOBIN (BEAKER) (test code = 9.5 GM/DL 11.2-15.7 L 410) HEMATOCRIT (BEAKER) (test code = 28.1 % 34.1-44.9 L 411) MEAN CORPUSCULAR VOLUME (BEAKER) 88 fL 79-95 (test code = 753) MEAN CORPUSCULAR HEMOGLOBIN 29.9 pg 25.6-32.2 (BEAKER) (test code = 751) MEAN CORPUSCULAR HEMOGLOBIN CONC 33.8 GM/DL 32.2-35.5 (BEAKER) (test code = 752) RED CELL DISTRIBUTION WIDTH 14.1 % 11.7-14.4 (BEAKER) (test code = 412) PLATELET COUNT (BEAKER) (test 204 K/CU MM 150-450 code = 756) MEAN PLATELET VOLUME (BEAKER) 9.8 fL 9.4-12.3 (test code = 754) NUCLEATED RED BLOOD CELLS 0 /100 WBC 0-0 (BEAKER) (test code = 413) NEUTROPHILS RELATIVE PERCENT 79 % (BEAKER) (test code = 429) LYMPHOCYTES RELATIVE PERCENT 11 % (BEAKER) (test code = 430) MONOCYTES RELATIVE PERCENT 9 % (BEAKER) (test code = 431) EOSINOPHILS RELATIVE PERCENT 0 % (BEAKER) (test code = 432) BASOPHILS RELATIVE PERCENT 0 % (BEAKER) (test code = 437) NEUTROPHILS ABSOLUTE COUNT 8.78 K/ L 1.56-6.13 H (BEAKER) (test code = 670) LYMPHOCYTES ABSOLUTE COUNT 1.20 K/ L 1.18-3.74 (BEAKER) (test code = 414) MONOCYTES ABSOLUTE COUNT (BEAKER) 1.01 K/ L 0.24-0.36 H (test code = 415) EOSINOPHILS ABSOLUTE COUNT 0.01 K/ L 0.04-0.36 L (BEAKER) (test code = 416) BASOPHILS ABSOLUTE COUNT (BEAKER) 0.03 K/ L 0.01-0.08 (test code = 417) IMMATURE GRANULOCYTES-RELATIVE 1.00 % 0.00-1.00 PERCENT (BEAKER) (test code = 2801) POCT-GLUCOSE [id number] 21:14:02 Test Item Value Reference Range Interpretation Comments POC-GLUCOSE METER 167 mg/dL 70-110 H : TESTED A T [facility] (test code = [place], 1538) [address]: Associate Professor Of Mathematics/Techni wendi ID = [id number] for BEAU CARTER SE SARS-COV2/RT-PCR ([facility])2022-07-20 17:57:12 Test Item Value Reference Range Interpretation Comments SARS-COV2/RT-PCR Negative Negative The SARS-Co V-2 target (test code = nucleic acids a re not [id number]) detected in thi s specimen. Negative result s do not preclude SARS-C oV-2 infection and s hould not be used as the lucrecia e basis for patient managem ent decisions. Nega tive results must be combine d with clinical observ ations, patient history , and epidemiological information. A false negativ e result may occur if a spec imen is improperly anastacia ected, transported or handled. This SARS CoV-2 test is a rapid, real-time RT-PC R test intended for th e qualitative detection of nu cleic acid from SARS-CoV-2 in a nasopharyngeal swab specimen collected from individuals suspected of CO VID-19 by their healthcar e provider. This test has been authorized by FDA under an EUA for use by authorized laboratories. This test is only authorized for the duration of the declaration that circumstances exist justifying the authorization of emergency use of in vitro diagnostic tests for detection and/or diagnosis of COVID-19 under Section 564(b)(1) of the Federal Food, Drug and Cosmetic Act, 21 U.S.C. 360bbb-3(b)(1), unless the authorization is terminated or revoked sooner. Fact Sheet for Healthcare Providers: https://www.MT[employer]or m/Documents/Xpert%20Xpress%20SARS%20CoV-2/Fact%20Sheets/302-3802%74TGND-KKA-1%20 HEALTHCARE%20PROVIDERS%20FACT%20SHEET.pdf Fact Sheet for Healthcare Patients: https://www.[employer]/Documents/Xpert%20Xp ress%20SARS%20CoV-2/Fact%20Sheets/302-3801%77MNXO-ARW-4%20PATIENT%20FACT%20SHEET .pdfPOCT-GLUCOSE [id number] 16:20:46 Test Item Value Reference Range Interpretation Comments POC-GLUCOSE METER 150 mg/dL 70-110 H : TESTED A T [facility] ([employer]) (test code = ELVIACONOR Good [facility], 1538) [address]: Associate Professor Of Mathematics/Techni wendi ID = [id number] for [place] JANAY MIKE RAD, CHEST, 1 VIEW, NON [id number] 15:10:00Reason for exam:->s/p left thoraShould this be performed at the bedside?->YesIN US [facility] 1940 Sex: FFINAL REPORT Chest AP portable COMPARISON STUDY: 07/20/2022 at 0641 hours History provided: Status post left thoracentesis Pleural fluid has been removed on the left. No pneumothorax. Atelectatic change in the left lower lobe. Right lung clear. Signed: Haresh Quinonez Verified Date/Time: 07/20/2022 15:10:13 Reading Location: [facility] Imaging Reading Room [place] [address] POCT- GLUCOSE [id number] 12:17:03 Test Item Value Reference Range Interpretation Comments POC-GLUCOSE METER 196 mg/dL 70-110 H : TESTED A T [facility] (BEAKER) (test code = [place], 1538) [address]: Associate Professor Of Mathematics/Techni wendi ID = [id number] for [place] JANAY MIKE RAD, ABDOMEN/KUB, 1 VIEW [id number] 11:58:00Reason for exam:->abdominal pain, distensionShould this be performed at the bedside?->Yes [facility] Browne : 1940 Sex: FFINAL REPORT CLINICAL HISTORY: abdominal pain, distension TECHNIQUE: Supine abdomen COMPARISON: None IMPRESSION: There is gaseous distention of small bowel in the central abdomen, for which further evaluation with abdominal CT could be performed if clinically warranted. There is stool in the colon. Free air and air-fluid levels are not definitively seen, but cannot be excluded on the supine view. There is a gastric stimulator. Signed: Cory Banks Verified Date/Time: 07/20/2022 11:58:53 Reading Location: [address] Reading Room RAD, CHEST, 1 VIEW, NON [id number] 09:34:00Reason for exam:->respiratory insufficiencyShould this be performed at the bedside?->YesEFRAIN [facility] 1940 Sex: FFINAL REPORT CHEST AP PORTABLE Comparison exam: 07/19/2022 History provided: Respiratory insufficiency Heart size normal. Pleural effusion remains on the left with superimposed basilar atelectasis. Right lung clear. Normal vascularity. Signed: Haresh Quinonez MDReport Verified Date/Time: 07/20/2022 09:34:16 Reading Location: [facility] Diagnostic Imaging Reading Room - [facility] 1.310.12 PT/APTT 2022-07-20 09:21:53 Test Item Value Reference Range Interpretation Comments PROTIME (BEAKER) (test 15.0 seconds 11.9-14.2 H code = 759) INR (BEAKER) (test 1.21 See_Comment [Automat ed code = 370) message] The sy stem which generated this result transmitted reference range : <=5.90. The reference range was not used to interpret this result as normal/abnormal . PARTIAL THROMBOPLASTIN 29.6 seconds 22.5-36.0 TIME (BEAKER) (test code = 760) RECOMMENDED COUMADIN/WARFARIN INR THERAPY RANGESSTANDARD DOSE: 2.0 - 3.0 Includes: PROPHYLAXIS for venous thrombosis, systemic embolization; TREATMENT for venous thrombosis and/or pulmonary embolus.HIGH RISK: Target INR is 2.5-3.5 for patients with mechanical heart valves.PROTHROMBIN TIME/[id number] 09:21:10 Test Item Value Reference Range Interpretation Comments PROTIME (BEAKER) 15.0 seconds 11.9-14.2 H (test code = 759) INR (BEAKER) (test 1.21 See_Comment [Automat ed message] code = 370) The system IPXI generated this result transmitted ref erence range: <=5.90. The reference range was not used to int erpret this result as normal/abnormal . RECOMMENDED COUMADIN/WARFARIN INR THERAPY RANGESSTANDARD DOSE: 2.0 - 3.0 Includes: PROPHYLAXIS for venous thrombosis, systemic embolization; TREATMENT for venous thrombosis and/or pulmonary embolus.HIGH RISK: Target INR is 2.5-3.5 for patients with mechanical heart valves.POCT-GLUCOSE [id number] 07:51:21 Test Item Value Reference Range Interpretation Comments POC-GLUCOSE METER 134 mg/dL 70-110 H : TESTED A T [facility] (BEAKER) (test code = ELVIACONOR Good [facility], 1538) [id number]: Associate Professor Of Mathematics/Techni ewndi ID = [id number] for NERY FUENTESGIOVANNI JANAY 2D Echo W/Doppler(CW/PW/Color)2022-07-20 07:45:42Ejection FractionSLEH ECHO HEARTLAB [facility]CK[id number] 05:34:20 Test Item Value Reference Range Interpretation Comments MAGNESIUM (BEAKER) 1.9 mg/dL 1.6-2.6 Specimen slightly (test code = 627) hemolyzed Associate Professor Of Mathematics ID - MARIO [id number] 05:34:20 Test Item Value Reference Range Interpretation Comments PHOSPHORUS (BEAKER) 2.4 mg/dL 2.3-4.7 Specimen slightly (test code = 604) hemolyzed Associate Professor Of Mathematics ID - MARIO LBASIC METABOLIC [id number] 05:34:20 Test Item Value Reference Range Interpretation Comments SODIUM (BEAKER) 133 meq/L 136-145 L (test code = 381) POTASSIUM 4.4 meq/L 3.5-5.1 Specimen slight ly (BEAKER) (test hemolyzed code = 379) CHLORIDE (BEAKER) 102 meq/L 98-107 (test code = 382) CO2 (BEAKER) 24 meq/L 22-29 (test code = 355) BLOOD UREA 19 mg/dL 7-21 NITROGEN (BEAKER) (test code = 354) CREATININE 0.94 mg/dL 0.57-1.25 Specimen slight ly (BEAKER) (test hemolyzed code = 358) GLUCOSE RANDOM 146 mg/dL 70-105 H (BEAKER) (test code = 652) CALCIUM (BEAKER) 8.7 mg/dL 8.4-10.2 (test code = 697) EGFR (BEAKER) 61 Interpretatio n of eGFR (test code = mL/min/1.73 values Stage De scription 1092) sq m Result G1 Norm al or high >=90 G2 Mildly decreased 60-89 G3a Mildl y to moderately 45-5 9 G3b Moderately to s everely 30-44 G4 Severl y decreased 15-29 G5 Kidney failure <15Reported eGF R is based on the CKD-EPI 2020 equation that d oes not use a race coefficientEsti mated GFR is not as accur ate as Creatinine Susanne kevon in predicting glom erular filtration rate . Estimated GFR is not appl icable for dialysis patien ts Associate Professor Of Mathematics ID - PIAYA LCBC W/PLT COUNT & AUTO [id number] 05:07:23 Test Item Value Reference Range Interpretation Comments WHITE BLOOD CELL COUNT (BEAKER) 9.9 K/ L 3.5-10.5 (test code = 775) RED BLOOD CELL COUNT (BEAKER) 3.10 M/ L 3.93-5.22 L (test code = 761) HEMOGLOBIN (BEAKER) (test code = 9.3 GM/DL 11.2-15.7 L 410) HEMATOCRIT (BEAKER) (test code = 28.7 % 34.1-44.9 L 411) MEAN CORPUSCULAR VOLUME (BEAKER) 93 fL 79-95 (test code = 753) MEAN CORPUSCULAR HEMOGLOBIN 30.0 pg 25.6-32.2 (BEAKER) (test code = 751) MEAN CORPUSCULAR HEMOGLOBIN CONC 32.4 GM/DL 32.2-35.5 (BEAKER) (test code = 752) RED CELL DISTRIBUTION WIDTH 13.9 % 11.7-14.4 (BEAKER) (test code = 412) PLATELET COUNT (BEAKER) (test 171 K/CU MM 150-450 code = 756) MEAN PLATELET VOLUME (BEAKER) 9.6 fL 9.4-12.3 (test code = 754) NUCLEATED RED BLOOD CELLS 0 /100 WBC 0-0 (BEAKER) (test code = 413) NEUTROPHILS RELATIVE PERCENT 82 % (BEAKER) (test code = 429) LYMPHOCYTES RELATIVE PERCENT 10 % (BEAKER) (test code = 430) MONOCYTES RELATIVE PERCENT 8 % (BEAKER) (test code = 431) EOSINOPHILS RELATIVE PERCENT 0 % (BEAKER) (test code = 432) BASOPHILS RELATIVE PERCENT 0 % (BEAKER) (test code = 437) NEUTROPHILS ABSOLUTE COUNT 8.11 K/ L 1.56-6.13 H (BEAKER) (test code = 670) LYMPHOCYTES ABSOLUTE COUNT 0.96 K/ L 1.18-3.74 L (BEAKER) (test code = 414) MONOCYTES ABSOLUTE COUNT (BEAKER) 0.75 K/ L 0.24-0.36 H (test code = 415) EOSINOPHILS ABSOLUTE COUNT 0.02 K/ L 0.04-0.36 L (BEAKER) (test code = 416) BASOPHILS ABSOLUTE COUNT (BEAKER) 0.02 K/ L 0.01-0.08 (test code = 417) IMMATURE GRANULOCYTES-RELATIVE 0.50 % 0.00-1.00 PERCENT (BEAKER) (test code = 2801) POCT-GLUCOSE [id number] 20:41:17 Test Item Value Reference Range Interpretation Comments POC-GLUCOSE METER 166 mg/dL 70-110 H : TESTED A T [facility] 6720 (BEAKER) (test code = [facility], 1538) [address]: Associate Professor Of Mathematics/Techni wendi ID = [id number] for YURIDIA BOLTON POCT-GLUCOSE [id number] 16:15:03 Test Item Value Reference Range Interpretation Comments POC-GLUCOSE METER 147 mg/dL 70-110 H : TESTED A T [facility] 6720 (BEAKER) (test code = [facility], 1538) 15579: Associate Professor Of Mathematics/Techni wendi ID = [id number] for GIANLUCA SWAN POCT-GLUCOSE [id number] 11:35:02 Test Item Value Reference Range Interpretation Comments POC-GLUCOSE METER 204 mg/dL 70-110 H : TESTED A T [facility] [address] (JUAN F) (test code = [place], 1538) [address]: Associate Professor Of Mathematics/Techni wendi ID = [id number] for GIANLUCA SWAN RAD, CHEST, 1 VIEW, NON [id number] 09:37:00Reason for exam:->respiratory insufficiencyShould this be performed at the bedside?->Yes [facility] 1940 Sex: FFINAL REPORT TECHNIQUE: Frontal view of the chest. INDICATION: respiratory insufficiency. COMPARISON: 07/18/2022 and 07/17/2022. FINDINGS: LINES/TUBES: None. HEART AND MEDIASTINUM: Cardiomediastinal contour is stable. Prior median sternotomy. LUNGS: Left basilar opacity, unchanged. No pulmonary edema. PLEURA: Slight increase in left pleural effusion. No pneumothorax. SOFT TISSUES AND BONES: Unremarkable. IMPRESSION: 1. Slight increase in left pleural effusion. Otherwise left basilar consolidative opacity remains unchanged. Signed: Rik Richey MDReport Verified Date/Time: 07/19/2022 09:37:22 [id number] 08:25:30 Test Item Value Reference Range Interpretation Comments MAGNESIUM (JUAN F) (test code = 2.1 mg/dL 1.6-2.6 627) Associate Professor Of Mathematics ID - YAHAIRA [id number] 08:25:30 Test Item Value Reference Range Interpretation Comments PHOSPHORUS (BEAKER) (test code = 2.7 mg/dL 2.3-4.7 604) Associate Professor Of Mathematics ID - YAHAIRA GBASIC METABOLIC [id number] 08:25:29 Test Item Value Reference Range Interpretation Comments SODIUM (BEAKER) 135 meq/L 136-145 L (test code = 381) POTASSIUM 4.1 meq/L 3.5-5.1 (BEAKER) (test code = 379) CHLORIDE (BEAKER) 103 meq/L 98-107 (test code = 382) CO2 (BEAKER) 25 meq/L 22-29 (test code = 355) BLOOD UREA 21 mg/dL 7-21 NITROGEN (BEAKER) (test code = 354) CREATININE 1.21 mg/dL 0.57-1.25 (BEAKER) (test code = 358) GLUCOSE RANDOM 170 mg/dL 70-105 H (BEAKER) (test code = 652) CALCIUM (BEAKER) 8.9 mg/dL 8.4-10.2 (test code = 697) EGFR (BEAKER) 45 Interpretatio n of eGFR (test code = mL/min/1.73 values Stage De scription 1092) sq m Result G1 Cecilia l or high >=90 G2 Mildly decreased 60-89 G3a Mild ly to moderately 45-5 9 G3b Moderately to s everely 30-44 G4 Severl y decreased 15-29 G5 Kidney failure <15Reported eGF R is based on the CKD-EPI 2020 equation that d oes not use a race coefficientEsti mated GFR is not as accur ate as Creatinine Susanne kevon in predicting glom erular filtration rate . Estimated GFR is not appl icable for dialysis patien ts Associate Professor Of Mathematics ID - YAHAIRA GPOCT-GLUCOSE [id number] 07:54:28 Test Item Value Reference Range Interpretation Comments POC-GLUCOSE METER 182 mg/dL 70-110 H : TESTED A T [facility] (BEAKER) (test code = [place], 1538) [address]: Associate Professor Of Mathematics/Techni wendi ID = [id number] for VIDA BOWIE GIANLUCA OXYGEN SATURATION, [id number] 05:07:45 Test Item Value Reference Range Interpretation Comments O2 SATURATION (MEASURED) (BEAKER) 64.5 % (test code = 1455) CBC W/PLT COUNT & AUTO [id number] 04:38:29 Test Item Value Reference Range Interpretation Comments WHITE BLOOD CELL COUNT (BEAKER) 8.6 K/ L 3.5-10.5 (test code = 775) RED BLOOD CELL COUNT (BEAKER) 3.64 M/ L 3.93-5.22 L (test code = 761) HEMOGLOBIN (BEAKER) (test code = 11.0 GM/DL 11.2-15.7 L 410) HEMATOCRIT (BEAKER) (test code = 33.7 % 34.1-44.9 L 411) MEAN CORPUSCULAR VOLUME (BEAKER) 93 fL 79-95 (test code = 753) MEAN CORPUSCULAR HEMOGLOBIN 30.2 pg 25.6-32.2 (BEAKER) (test code = 751) MEAN CORPUSCULAR HEMOGLOBIN CONC 32.6 GM/DL 32.2-35.5 (BEAKER) (test code = 752) RED CELL DISTRIBUTION WIDTH 14.5 % 11.7-14.4 H (BEAKER) (test code = 412) PLATELET COUNT (BEAKER) (test 194 K/CU MM 150-450 code = 756) MEAN PLATELET VOLUME (BEAKER) 9.8 fL 9.4-12.3 (test code = 754) NUCLEATED RED BLOOD CELLS 0 /100 WBC 0-0 (BEAKER) (test code = 413) NEUTROPHILS RELATIVE PERCENT 80 % (BEAKER) (test code = 429) LYMPHOCYTES RELATIVE PERCENT 12 % (BEAKER) (test code = 430) MONOCYTES RELATIVE PERCENT 7 % (BEAKER) (test code = 431) EOSINOPHILS RELATIVE PERCENT 0 % (BEAKER) (test code = 432) BASOPHILS RELATIVE PERCENT 0 % (BEAKER) (test code = 437) NEUTROPHILS ABSOLUTE COUNT 6.85 K/ L 1.56-6.13 H (BEAKER) (test code = 670) LYMPHOCYTES ABSOLUTE COUNT 1.05 K/ L 1.18-3.74 L (BEAKER) (test code = 414) MONOCYTES ABSOLUTE COUNT (BEAKER) 0.56 K/ L 0.24-0.36 H (test code = 415) EOSINOPHILS ABSOLUTE COUNT 0.03 K/ L 0.04-0.36 L (BEAKER) (test code = 416) BASOPHILS ABSOLUTE COUNT (BEAKER) 0.02 K/ L 0.01-0.08 (test code = 417) IMMATURE GRANULOCYTES-RELATIVE 0.80 % 0.00-1.00 PERCENT (BEAKER) (test code = 2801) POCT-GLUCOSE [id number] 20:51:45 Test Item Value Reference Range Interpretation Comments POC-GLUCOSE METER 116 mg/dL 70-110 H : TESTED A T [facility] 6720 (BEAKER) (test code = [facility] Latisha [facility], 1538) 249[address]: Associate Professor Of Mathematics/Techni wendi ID = [id number] for NAKITA SINGH POCT-GLUCOSE [id number] 16:49:54 Test Item Value Reference Range Interpretation Comments POC-GLUCOSE METER 136 mg/dL 70-110 H : TESTED A T [facility] 6720 (BEAKER) (test code = [facility] [employer]On [facility], 1538) 715[address]: Associate Professor Of Mathematics/Techni wendi ID = [id number] for GIANLUCA SWAN RAD, CHEST, 1 VIEW, NON [id number] 13:17:00Reason for exam:->respiratory insufficiencyShould this be performed at the bedside?->Yes [facility] 1940 Sex: FFINAL REPORT TECHNIQUE: Frontal radiograph of the chest. Indication: Respiratory insufficiency COMPARISON: Chest x-ray dated 07/17/2022 FINDINGS/IMPRESSION: Median sternotomy wires are seen. The heart is enlarged. Low lung volumes. Hazy opacities are seen in the left lower lobe suggestingsmall pleural effusion with adjacent consolidation/atelectasis. There is no pneumothorax. The upper abdomen is normal. No bone abnormality is seen. Signed: Deborah Nichols MDReport Verified Date/Time: 07/18/2022 13:17:43 Reading Location: [facility] C013 Transitional Reading Room POCT-GLUCOSE [id number] 11:45:32 Test Item Value Reference Range Interpretation Comments POC-GLUCOSE METER 189 mg/dL 70-110 H : TESTED A T [facility] (BEAKER) (test code = [place], 1538) [address]: Associate Professor Of Mathematics/Techni wendi ID = [id number] for GIANLUCA SWAN CBC W/PLT COUNT & AUTO [id number] 11:00:33 Test Item Value Reference Range Interpretation Comments WHITE BLOOD CELL COUNT (BEAKER) 11.3 K/ L 3.5-10.5 H (test code = 775) RED BLOOD CELL COUNT (BEAKER) 3.32 M/ L 3.93-5.22 L (test code = 761) HEMOGLOBIN (BEAKER) (test code = 10.1 GM/DL 11.2-15.7 L 410) HEMATOCRIT (BEAKER) (test code = 32.2 % 34.1-44.9 L 411) MEAN CORPUSCULAR VOLUME (BEAKER) 97 fL 79-95 H (test code = 753) MEAN CORPUSCULAR HEMOGLOBIN 30.4 pg 25.6-32.2 (BEAKER) (test code = 751) MEAN CORPUSCULAR HEMOGLOBIN CONC 31.4 GM/DL 32.2-35.5 L (BEAKER) (test code = 752) RED CELL DISTRIBUTION WIDTH 14.6 % 11.7-14.4 H (BEAKER) (test code = 412) PLATELET COUNT (BEAKER) (test 156 K/CU MM 150-450 code = 756) MEAN PLATELET VOLUME (BEAKER) 10.0 fL 9.4-12.3 (test code = 754) NUCLEATED RED BLOOD CELLS 0 /100 WBC 0-0 (BEAKER) (test code = 413) NEUTROPHILS RELATIVE PERCENT 84 % (BEAKER) (test code = 429) LYMPHOCYTES RELATIVE PERCENT 8 % (BEAKER) (test code = 430) MONOCYTES RELATIVE PERCENT 8 % (BEAKER) (test code = 431) EOSINOPHILS RELATIVE PERCENT 0 % (BEAKER) (test code = 432) BASOPHILS RELATIVE PERCENT 0 % (BEAKER) (test code = 437) NEUTROPHILS ABSOLUTE COUNT 9.40 K/ L 1.56-6.13 H (BEAKER) (test code = 670) LYMPHOCYTES ABSOLUTE COUNT 0.88 K/ L 1.18-3.74 L (BEAKER) (test code = 414) MONOCYTES ABSOLUTE COUNT (BEAKER) 0.86 K/ L 0.24-0.36 H (test code = 415) EOSINOPHILS ABSOLUTE COUNT 0.02 K/ L 0.04-0.36 L (BEAKER) (test code = 416) BASOPHILS ABSOLUTE COUNT (BEAKER) 0.03 K/ L 0.01-0.08 (test code = 417) IMMATURE GRANULOCYTES-RELATIVE 0.60 % 0.00-1.00 PERCENT (BEAKER) (test code = 2801) [id number] 06:08:27 Test Item Value Reference Range Interpretation Comments PHOSPHORUS (BEAKER) 2.8 mg/dL 2.3-4.7 Specimen slightly (test code = 604) hemolyzed Associate Professor Of Mathematics ID - ADMINBASIC METABOLIC [id number] 06:08:27 Test Item Value Reference Range Interpretation Comments SODIUM (BEAKER) 134 meq/L 136-145 L (test code = 381) POTASSIUM 4.7 meq/L 3.5-5.1 Specimen slight ly (BEAKER) (test hemolyzed code = 379) CHLORIDE (BEAKER) 103 meq/L 98-107 (test code = 382) CO2 (BEAKER) 24 meq/L 22-29 (test code = 355) BLOOD UREA 20 mg/dL 7-21 NITROGEN (BEAKER) (test code = 354) CREATININE 1.01 mg/dL 0.57-1.25 Specimen slight ly (BEAKER) (test hemolyzed code = 358) GLUCOSE RANDOM 133 mg/dL 70-105 H (BEAKER) (test code = 652) CALCIUM (BEAKER) 8.8 mg/dL 8.4-10.2 (test code = 697) EGFR (BEAKER) 56 Interpretatio n of eGFR (test code = mL/min/1.73 values Stage De scription 1092) sq m Result G1 Cecilia l or high >=90 G2 Mildly decreased 60-89 G3a Mildl y to moderately 45-5 9 G3b Moderately to s everely 30-44 G4 Severl y decreased 15-29 G5 Kidney failure <15Reported eGF R is based on the CKD-EPI 2020 equation that d oes not use a race coefficientEsti mated GFR is not as accur ate as Creatinine Susanne kevon in predicting glom erular filtration rate . Estimated GFR is not appl icable for dialysis patien ts Associate Professor Of Mathematics ID - [id number] 06:08:26 Test Item Value Reference Range Interpretation Comments MAGNESIUM (BEAKER) 2.1 mg/dL 1.6-2.6 Specimen slightly (test code = 627) hemolyzed Associate Professor Of Mathematics ID - ADMINHGB/HCT (H&H) - STAT [id number] 05:18:18 Test Item Value Reference Range Interpretation Comments HEMOGLOBIN (BEAKER) (test code = 10.5 GM/DL 12.0-15.0 L 410) HEMATOCRIT (BEAKER) (test code = 31.0 % 36.0-45.0 L 411) OXYGEN SATURATION, [id number] 05:11:27 Test Item Value Reference Range Interpretation Comments O2 SATURATION (MEASURED) (BEAKER) 54.9 % (test code = 1455) GLUCOSE-STAT [id number] 05:11:06 Test Item Value Reference Range Interpretation Comments GLUCOSE RANDOM (BEAKER) (test code 129 mg/dL 70-110 H = 652) SODIUM NA-STAT [id number] 05:11:06 Test Item Value Reference Range Interpretation Comments SODIUM (BEAKER) (test code = 381) 139 meq/L 136-145 POTASSIUM-STAT [id number] 05:11:06 Test Item Value Reference Range Interpretation Comments POTASSIUM (BEAKER) (test code = 4.6 meq/L 3.6-5.5 379) POCT-GLUCOSE [id number] 17:07:29 Test Item Value Reference Range Interpretation Comments POC-GLUCOSE METER 123 mg/dL 70-110 H : Notified RN/MD: (BEAKER) (test code = TESTED AT [facility] 4744 9661) [facility], [address]: Associate Professor Of Mathematics/Techni wendi ID = [id number] for Va n, Cherri POCT-GLUCOSE [id number] 16:52:17 Test Item Value Reference Range Interpretation Comments POC-GLUCOSE METER 117 mg/dL 70-110 H : Notified RN/MD: (JUAN F) (test code = TESTED AT [place] [address] 1538) [facility], [address]: Associate Professor Of Mathematics/Techni wendi ID = [id number] for Va n, Cherri POCT-GLUCOSE [id number] 16:29:37 Test Item Value Reference Range Interpretation Comments POC-GLUCOSE METER 145 mg/dL 70-110 H : TESTED A T [place] [address] (JUAN F) (test code = [facility], 1538) [address]: Associate Professor Of Mathematics/Techni wendi ID = [id number] for DO INAETTDecember POCT-GLUCOSE [id number] 16:18:08 Test Item Value Reference Range Interpretation Comments POC-GLUCOSE METER 128 mg/dL 70-110 H : Notified RN/MD: (JUAN F) (test code = TESTED AT [place] [address] 1538) [facility], [address]: Associate Professor Of Mathematics/Techni wendi ID = [id number] for Mo rris, Umu POCT-GLUCOSE [id number] 16:07:13 Test Item Value Reference Range Interpretation Comments POC-GLUCOSE METER 119 mg/dL 70-110 H : Notified RN/MD: (JUAN F) (test code = TESTED AT [place] [address] 1538) [facility], [address]: Associate Professor Of Mathematics/Techni wendi ID = [id number] for Mo rris, Umu RAD, CHEST, 1 VIEW, NON [id number] 16:01:008CB-27 [facility] 1940 Sex: FFINAL REPORT TECHNIQUE: Frontal view of the chest. INDICATION: post op. COMPARISON: 07/16/2022. FINDINGS: LINES/TUBES: None. HEART AND MEDIASTINUM: Cardiomediastinal contour is stable. Cardiomegaly. Prior median sternotomy. LUNGS: Mild elevation left hemidiaphragm with left basilar opacity, increased compared to the prior examination. No overt edema. PLEURA: Small left pleural effusion, increased compared to the prior examination. No pneumothorax. SOFT TISSUES AND BONES: Unremarkable. IMPRESSION:Small left pleural effusion, increased compared to the prior examination with increasing left basilar opacities favoring increasing atelectasis given elevation left hemidiaphragm. Superimposed pneumonia would be difficult to exclude. No pulmonary edema. Signed: Rik Richey MDRcharlotte [facility] Verified Date/Time: 07/17/2022 16:01:38 RAD, CHEST, 1 VIEW, NON [id number] 1940 Sex: FFINAL REPORT RAD, CHEST, 1 VIEW, NON DEPT INDICATION: s/p cv surgery COMPARISON: 06/25/2022 FINDINGS: Portable frontal view of the chest. IMPRESSION: Support Lines: The pulmonary arterial catheter tip overlies the main pulmonary tract. Lungs and pleura: Trace left pleural effusion with adjacent left basilar atelectasis. No focal consolidation. No pneumothorax. Heart and mediastinum: S table contours. Additional findings: None. Signed: Luis Sylvester MDReport Verified Date/Time: 07/16/2022 04:34:15 RAD, CHEST, 2 [id number] 12:21:00Reason for Exam:->preopCHI [facility] : 1940 Sex: FFINAL REPORT INDICATION: preop COMPARISON: None TECHNIQUE: Frontal and lateral views ofthe chest. FINDINGS: Lines, tubes, and devices: None.Lungs and pleura: Clear lungs. No effusion.Heart and mediastinum: Normal heart size. Unremarkable mediastinal contours.Osseous structures: No acute abnormality. Moderate spondylosis and facet arthropathy are present within the spine. Anterior and posterior longitudinal ligament ossifications. Soft tissue calcifications in the anterior chest wall bilaterally.Other: None. IMPRESSION: No acute intrathoracic abnormality. Signed: Javi Hutson MDReportVerified Date/Time: 06/25/2022 12:21:23 Reading Location: [address] Reading Room GLOBIN [id number] 11:23:38 Test Item Value Reference Range Interpretation Comments HEMOGLOBIN A1C 6.8 % See_Comment H [Automated m essage] ELECTROPHORESIS (BEAKER) The system which (test code = 3811) generated this result transmitted ref erence range: <=5.6%. The reference range was not used to int erpret this result as normal/abnormal . "The A1c is measured using a NGSP-certified method. HbA1c value equal to or greater than 6.5% as thediagnosis cutoff for diabetes. An HbA1c value of 5.7- 6.4% indicates increased risk for diabetes (prediabetes)."Associate Professor Of Mathematics ID - ADMBASIC METABOLIC [id number] 10:58:27 Test Item Value Reference Range Interpretation Comments SODIUM (BEAKER) 139 meq/L 136-145 (test code = 381) POTASSIUM 3.4 meq/L 3.5-5.1 L (BEAKER) (test code = 379) CHLORIDE (BEAKER) 105 meq/L 98-107 (test code = 382) CO2 (BEAKER) 27 meq/L 22-29 (test code = 355) BLOOD UREA 10 mg/dL 7-21 NITROGEN (BEAKER) (test code = 354) CREATININE 1.08 mg/dL 0.57-1.25 (BEAKER) (test code = 358) GLUCOSE RANDOM 142 mg/dL 70-105 H (BEAKER) (test code = 652) CALCIUM (BEAKER) 9.4 mg/dL 8.4-10.2 (test code = 697) EGFR (BEAKER) 52 Interpretatio n of eGFR (test code = mL/min/1.73 values Stage De scription 1092) sq m Result G1 Cecilia l or high >=90 G2 Mildly decreased 60-89 G3a Mildl y to moderately 45-5 9 G3b Moderately to s everely 30-44 G4 Severl y decreased 15-29 G5 Kidney failure <15Reported eGF R is based on the CKD-EPI 2020 equation that d oes not use a race coefficientEsti mated GFR is not as accur ate as Creatinine Susanne lund in predicting glom erular filtration rate . Estimated GFR is not appl icable for dialysis patien ts Associate Professor Of Mathematics ID - SANTI MLIPID [id number] 10:58:27 Test Item Value Reference Range Interpretation Comments TRIGLYCERIDES (BEAKER) (test code = 160 mg/dL 540) CHOLESTEROL (BEAKER) (test code = 161 mg/dL 631) HDL CHOLESTEROL (BEAKER) (test code 38 mg/dL = 976) LDL CHOLESTEROL CALCULATED (BEAKER) 91 mg/dL (test code = 633) Triglyceride Reference Range: Low Risk <150 Borderline 150-199 High Risk 200- 499 Very High Risk >=500Cholesterol Reference Range: Low Risk <200 Borderline 200-239 High Risk >240HDL Cholesterol Reference Range: Low Risk >=60 High Risk <40LDL Cholesterol Reference Range: Optimal <100 Near Optimal 100-129 Borderline 130-159 High 160-189 Very High >=190 Associate Professor Of Mathematics ID - SANTI MPROTHROMBIN [id number] 10:48:02 Test Item Value Reference Range Interpretation Comments PROTIME (BEAKER) 18.2 seconds 11.9-14.2 H (test code = 759) INR (BEAKER) (test 1.55 See_Comment [Automat ed message] code = 370) The system IPXI generated this result transmitted ref erence range: <=5.90. The reference range was not used to int erpret this result as normal/abnormal . RECOMMENDED COUMADIN/WARFARIN INR THERAPY RANGESSTANDARD DOSE: 2.0 - 3.0 Includes: PROPHYLAXIS for venous thrombosis, systemic embolization; TREATMENT for venous thrombosis and/or pulmonary embolus.HIGH RISK: Target INR is 2.5-3.5 for patients with mechanical heart valves.COVID [id number] 10:37:57 Test Item Value Reference Range Interpretation Comments SARS COVID ANTIGEN Negative Negative (test code = 65713-7) JANEEN (test code = JANEEN) The QuickVue SARS Antigen test does not differentiate between SARS-CoV and SARS-CoV-2. The test has been authorized by the FDA under an EUA for use by authorized laboratories. Lab Interpretation Normal (test code = 31888-1) [facility] [id number] 10:37:57 Test Item Value Reference Range Interpretation Comments SARS COVID ANTIGEN (test code = Negative Negative 56188949) The QuickVue SARS Antigen test does not differentiate between SARS-CoV and SARS-CoV-2.The test has been authorized by the FDA under an EUA for use by authorized laboratories.CBC W/PLT COUNT & AUTO [id number] 10:32:15 Test Item Value Reference Range Interpretation Comments WHITE BLOOD CELL COUNT (BEAKER) 6.4 K/ L 3.5-10.5 (test code = 775) RED BLOOD CELL COUNT (BEAKER) 4.95 M/ L 3.93-5.22 (test code = 761) HEMOGLOBIN (BEAKER) (test code = 14.6 GM/DL 11.2-15.7 410) HEMATOCRIT (BEAKER) (test code = 44.1 % 34.1-44.9 411) MEAN CORPUSCULAR VOLUME (BEAKER) 89.1 fL 79.4-94.8 (test code = 753) MEAN CORPUSCULAR HEMOGLOBIN 29.5 pg 25.6-32.2 (BEAKER) (test code = 751) MEAN CORPUSCULAR HEMOGLOBIN CONC 33.1 GM/DL 32.2-35.5 (BEAKER) (test code = 752) RED CELL DISTRIBUTION WIDTH 13.7 % 11.7-14.4 (BEAKER) (test code = 412) PLATELET COUNT (BEAKER) (test 181 K/CU MM 150-450 code = 756) MEAN PLATELET VOLUME (BEAKER) 9.8 fL 9.4-12.3 (test code = 754) NUCLEATED RED BLOOD CELLS 0 /100 WBC 0-0 (BEAKER) (test code = 413) NEUTROPHILS RELATIVE PERCENT 65 % (BEAKER) (test code = 429) LYMPHOCYTES RELATIVE PERCENT 24 % (BEAKER) (test code = 430) MONOCYTES RELATIVE PERCENT 9 % (BEAKER) (test code = 431) EOSINOPHILS RELATIVE PERCENT 1 % (BEAKER) (test code = 432) BASOPHILS RELATIVE PERCENT 1 % (BEAKER) (test code = 437) NEUTROPHILS ABSOLUTE COUNT 4.17 K/ L 1.56-6.13 (BEAKER) (test code = 670) LYMPHOCYTES ABSOLUTE COUNT 1.54 K/ L 1.18-3.74 (BEAKER) (test code = 414) MONOCYTES ABSOLUTE COUNT (BEAKER) 0.55 K/ L 0.24-0.36 H (test code = 415) EOSINOPHILS ABSOLUTE COUNT 0.09 K/ L 0.04-0.36 (BEAKER) (test code = 416) BASOPHILS ABSOLUTE COUNT (BEAKER) 0.03 K/ L 0.01-0.08 (test code = 417) IMMATURE GRANULOCYTES-RELATIVE 0 % 0-1 PERCENT (BEAKER) (test code = 2801) SARS-COV2/RT-PCR ([facility])2020-04-02 12:55:00 Test Item Value Reference Range Interpretation Comments SARS-COV2/RT-PCR (test code = Negative Not Detected, Negative [id number]) SARS-COV-2 PERFORMING LAB [facility] (test code = 9889897) Negative result for this test determines that SARS-CoV-2 RNA was not present in the specimen above the Limit of Detection (LOD). However, Negative results do not preclude SARS-CoV-2 infection and should not be used as the sole basis for treatment or patient management decisions. Negative results must be combined with clinical observations, patient history, and epidemiological information. A false negative result may occur if a specimen is improperly collected, transported or handled. A false negative result should be considered if patient's recent exposures or clinical presentation indicate that COVID-19 (SARS-CoV-2) is likely and diagnostic tests for other causes of illness are negative. Re-testing should be considered in cases of suspected false negatives.The limit of detection for this assay is 800 copies/mL.This SARS CoV-2 test is a real-time RT-PCR test intended for the qualitative detection of nucleic acid from SARS-CoV-2 in a nasopharyngeal swab specimen collected from individuals suspected of COVID-19 by their healthcare provider.This test has not been Food and Drug Administration (FDA) cleared or approved. This is a modified version of an approved Emergency Use Authorization (EUA) and is in the process of review by the FDA. Once authorized by the FDA, the issued EUA will be effective until the declaration that circumstances exist justifying the authorization of the emergency use ofin vitro diagnostic tests for detection and/or diagnosis of COVID-19 is terminated under Section 564(b)(2) of the Act or the EUA is revoked under Section 564(g) of the Act.Fact Sheet for Healthcare Prov iders:https://www.MedHab.DeskActive/sites/default/files/product/documents/Fact_Sheet_HC _Mnnqkdblj_Zgst_LTGG-ZuP-1.pdfFact Sheet for Healthcare Patients:https://www.MedHab.DeskActive/sites/default/files/product/docume nts/Izbd_Wzjbp_Cvraahzu_Mqhv_IXLE-RsS-4.pdfPerforming Laboratory:[facility] [place] [address]
--- NOTE | 2022-11-06 18:43 | RAD REPORT ---
EXAM DESCRIPTION: RAD - Chest Single View - 11/06/2022 6:29 pm CLINICAL HISTORY: weakness COMPARISON: Chest Single View dated 04/02/2020; Chest Single View dated 04/01/2020; Chest Single View da salvador 03/19/2020; Chest Pa And Lat (2 Views) dated 08/11/2017 FINDINGS: Lines: Loop recorder overlies the chest. Lungs: Mildly elevated left hemidiaphragm. Pleural: Blunted left costophrenic angle Cardiac: The heart size is within normal limits. Mediastinum: Within normal limits. Bones: No acute fractures. Sternotomy. Other: None IMPRESSION: Blunted left costophrenic angle with mildly elevated left hemidiaphragm. This could repr esent atelectasis and small for effusion. Pneumonia difficult to exclude radiographically. No pulmona ry edema.
[2022-11-06 19:00] LABS: Absolute Lymphocytes (CBC) 1.7 K/uL (0.7-4.9); Hematocrit 38.5 % (36.0-45.0); Lymphocytes % 25.4 % (15.3-44.8); MCV 89.3 fL (80-100); RBC Red Blood Cell Count 4.31 M/uL (3.86-4.86)
[2022-11-06 19:01] LABS: Protime INR 1.7
[2022-11-06] MEDS ORDERED: Ringers Lactate 1,000 ML IV ONE (19:06)
[2022-11-06 19:17] LABS: Albumin 3.3 g/dL (3.4-5.0); Bilirubin Direct 0.3 mg/dL (0-0.2); Bilirubin Total 0.8 mg/dL (0.2-1.0); Magnesium 1.9 mg/dL (1.6-2.4); Potassium 3.2 mmol/L (3.5-5.1); Troponin High Sensitivity 21.8 pg/mL (<58.9)
--- NOTE | 2022-11-06 19:34 | RAD REPORT ---
EXAM DESCRIPTION: CT - Thorax Wo Con - 11/06/2022 7:19 pm CLINICAL HISTORY: abnormal cxr, weakness COMPARISON: Chest Single View dated 11/06/2022; Chest Single View dated 04/02/2020 FINDINGS: Chest Wall: No suspicious thyroid nodules or pathologic lymphadenopathy. Sebaceous cyst in the anterior chest wall. Loop recorder in the left anterior chest wall. Lungs: Elevated left hemidiaphragm with atelectasis at the left lung base. Pleura: No significant effusions or pneumothorax. Mediastinum/gabriela: No pathologic lymphadenopathy. Pulmonary arteries/Aorta: Limited evaluation without contrast. No aortic aneurysm. Heart: No significant pericardial effusion. Normal heart size. Aortic valve calcifications. Heavily c alcified coronary arteries. Upper abdomen: No acute abnormality. Bones: No acute abnormality. Sternotomy. Remote left-sided rib fractures. Bridging osteophytes in the spine. All CT scans are performed using dose optimization technique as appropriate and may include automated exposure control or mA/KV adjustment according to patient size. IMPRESSION: No acute process. Mildly elevated left hemidiaphragm with underlying atelectasis of doub tful acute clinical significance. It may be as result of the prior sternotomy and CABG.
--- NOTE | 2022-11-06 19:44 | EDPHYS ---
Physician Documentation [facility] Name: Claudia Myers Age: 82 yrs Sex: Female : 1940 Arrival Date: 11/06/2022 Time: 18:05 Bed 3 Private MD: ED Physician Cb Mcgill HPI: 11/06 18:12 This 82 yrs old Unknown Female presents to ER via EMS with complaints of Dizziness. jmm 18:12 The patient presents with lightheadedness. Onset: The symptoms/episode began/occurred jmm gradually, 2 day(s) ago. Modifying factors: The symptoms are alleviated by nothing, the symptoms are aggravated by nothing. Is an 82-year-old female with history of atrial fibrillation, diabetes mellitus, hypertension the presents emerged department with complaints of lightheadedness and near syncope beginning approximately 2 days ago. Patient states noticing her blood pressure was low. Patient does take hydralazine, losartan, furosemide at home. Patient takes Eliquis as well for atrial fibrillation. Denies chest pain, denies shortness of breath. Historical: - Allergies: 18:06 Bactrim DS; iw - PMHx: 18:06 Atrial Fib; Diabetes - NIDDM; Hypertension; iw - Immunization history:: Adult Immunizations unknown. - Social history:: Smoking status: . ROS: 18:12 Cardiovascular: Negative for chest pain, palpitations, and edema, Respiratory: Negative jmm for shortness of breath, cough, wheezing, and pleuritic chest pain. 18:12 Constitutional: Positive for fatigue. 18:12 Neuro: Positive for near syncope, weakness. 18:12 All other systems are negative. Exam: 18:12 Constitutional: This is a well developed, well nourished patient who is awake, alert, jmm and in no acute distress. Head/Face: atraumatic. Eyes: EOMI, no conjunctival erythema appreciated ENT: Moist Mucus Membranes Neck: Trachea midline, Supple Chest/axilla: Normal chest wall appearance and motion. Cardiovascular: Regular rate and rhythm. No edema appreciated Respiratory: Normal respirations, no respiratory distress appreciated Abdomen/GI: Non distended Back: Normal ROM Skin: General appearance color normal MS/ Extremity: Moves all extremities, no obvious deformities appreciated, no edema noted to the lower extremities Neuro: Awake and alert Psych: Behavior is normal, Mood is normal, Patient is cooperative and pleasant Vital Signs: 18:35 BP 100 / 57; Pulse 81; Resp 17 S; Temp 98.7(O); Pulse Ox 95% on R/A; Weight 81.65 kg aa5 (R); Height 5 ft. 5 in. (165.10 cm) (R); 21:30 BP 147 / 66; Pulse 73; Resp 19 S; Pulse Ox 99% on R/A; aa9 18:35 Body Mass Index 29.95 (81.65 kg, 165.10 cm) aa5 MDM: 18:14 Patient medically screened. [facility] 19:42 Data reviewed: vital signs, nurses notes. Consideration of Admission/Observation [facility] Patient was admitted/placed on observation. Management of patient was discussed with the following: Hospitalist: Tammie Smith PA-C. I considered the following discharge prescriptions or medication management in the emergency department Medications were administered in the Emergency Department. See MAR. Independent interpretation of the following test(s) in the Emergency Department X-Ray: My interpretation is No infiltrate appreciated. Counseling: I had a detailed discussion with the patient and/or guardian regarding: the historical points, exam findings, and any diagnostic results supporting the discharge/admit diagnosis, lab results, radiology results, the need for further work-up and treatment in the hospital. 11/06 18:12 Order name: Basic Metabolic Panel; Complete Time: 19:17 [facility] 11/06 18:12 Order name: CBC with Diff; Complete Time: 19:02 [facility] 11/06 18:12 Order name: LFT's; Complete Time: 19:17 [facility] 11/06 18:12 Order name: Magnesium; Complete Time: 19:17 [facility] 11/06 18:12 Order name: NT PRO-BNP; Complete Time: 19:17 [facility] 11/06 18:12 Order name: PT-INR; Complete Time: 19:02 [facility] 11/06 18:12 Order name: Troponin HS; Complete Time: 19:17 [facility] 11/06 18:12 Order name: XRAY Chest (1 view); Complete Time: 18:45 [facility] 11/06 18:12 Order name: EKG; Complete Time: 18:13 [facility] 11/06 18:12 Order name: Cardiac monitoring; Complete Time: 19:01 [facility] 11/06 18:12 Order name: EKG - Nurse/Tech; Complete Time: 19:01 [facility] 11/06 19:03 Order name: CT Chest Wo Con; Complete Time: 19:39 [facility] 11/06 19:49 Order name: SARS-COV-2 Antigen Rapid; Complete Time: 20:45 [facility] 11/06 18:12 Order name: IV Saline Lock; Complete Time: 19:01 [facility] 11/06 18:12 Order name: Labs collected and sent; Complete Time: 19: [facility] 11/06 18:12 Order name: O2 Per Protocol; Complete Time: 19: [facility] 11/06 18:12 Order name: O2 Sat Monitoring; Complete Time: 19: [facility] Administered Medications: 19:07 Drug: Lactated Ringers Solution 1000 ml Route: IV; Rate: 500 ml/hr; Site: left aa5 antecubital; Disposition Summary: 11/06/22 19:43 Hospitalization Ordered Hospitalization Status: Observation [facility] Location: Telemetry/MedSurg (observation) jm Condition: Stable [facility] Problem: new [facility] Symptoms: have improved [facility] Bed/Room Type: Standard [facility] Provider: Toan Freire(11/06/22 19:47) [facility] Room Assignment: 231(11/06/22 21:03) Diagnosis - Syncope Near [facility] - Acute Kidney Injury [facility] - Dehydration [facility] Forms: - Medication Reconciliation Form [facility] - SBAR form [facility] Addendum: 11/13/2022 09:52 Co-signature as Attending Physician, Cb Mcgill MD I reviewed the patient's care r t provided by the Advanced Practice Provider and agree with the diagnosis and treatment plan. Signatures: Dispatcher [employer] EDMS Pari Gann RN Everett Gu PA PA jmm Williams, Irene, RN RN iw Calderon, Audri, RN RN aa5 Kerri Pierson RN RN aa9 Rima Smith PA-C PACb Turner MD MD rt Corrections: (The following items were deleted from the chart) 11/06 19:47 19:43 [facility] 21:[facility] 19:43 [facility] parmjit
--- NOTE | 2022-11-06 19:44 | ER ---
Nurse's Notes [facility] Name: Claudia Myers Age: 82 yrs Sex: Female : 1940 Arrival Date: 11/06/2022 Time: 18:05 Bed 3 Private MD: Diagnosis: Syncope Near;Acute Kidney Injury;Dehydration Presentation: 11/06 18:05 Chief complaint: EMS states: toned out for low BP 80's systolic, EMS reports 130 iw systolic, pt reports dizziness today and requested transport to ER, stents placed in June , on hydralazine and losartan. Coronavirus screen: At this time, the client does not indicate any symptoms associated with coronavirus-19. Ebola Screen: Patient negative for fever greater than or equal to 101.5 degrees Fahrenheit, and additional compatible Ebola Virus Disease symptoms Patient denies exposure to infectious person. Patient denies travel to an Ebola-affected area in the 21 days before illness onset. No symptoms or risks identified at this time. Initial Sepsis Screen: Does the patient meet any 2 criteria? No. Patient's initial sepsis screen is negative. Does the patient have a suspected source of infection? No. Patient's initial sepsis screen is negative. Risk Assessment: Do you want to hurt yourself or someone else? Patient reports no desire to harm self or others. Onset of symptoms was November 06, 2022. 18:05 Method Of Arrival: EMS: [facility] iw 18:05 Acuity: KEVIN 3 iw Triage Assessment: 21:29 General: Appears in no apparent distress. Behavior is cooperative. Pain: Denies pain. aa9 Historical: - Allergies: 18:06 Bactrim DS; iw - PMHx: 18:06 Atrial Fib; Diabetes - NIDDM; Hypertension; iw - Immunization history:: Adult Immunizations unknown. - Social history:: Smoking status: . Screenin:28 [facility] ED Fall Risk Assessment (Adult) History of falling in the last 3 months, aa9 including since admission No falls in past 3 months (0 pts) Confusion or Disorientation No (0 pts) Intoxicated or Sedated No (0 pts) Impaired Gait Yes (1 pt) Mobility Assist Device Used Yes (1 pt) Altered Elimination No (0 pt) Score/Fall Risk Level 3 or more points = High Risk Oriented to surroundings, Maintained a safe environment. Abuse screen: Denies threats or abuse. Denies injuries from another. Nutritional screening: No deficits noted. Tuberculosis screening: No symptoms or risk factors identified. Assessment: 21:34 Reassessment: Patient appears in no apparent distress at this time. Patient is alert, aa9 oriented x 3, equal unlabored respirations, skin warm/dry/pink. 21:45 Reassessment: attempted to call report. aa9 22:01 Reassessment: attempted to call report. aa9 22:34 Reassessment: Patient appears in no apparent distress at this time. Patient is alert, aa9 oriented x 3, equal unlabored respirations, skin warm/dry/pink. Patient denies pain at this time. Vital Signs: 18:35 BP 100 / 57; Pulse 81; Resp 17 S; Temp 98.7(O); Pulse Ox 95% on R/A; Weight 81.65 kg aa5 (R); Height 5 ft. 5 in. (165.10 cm) (R); 21:30 BP 147 / 66; Pulse 73; Resp 19 S; Pulse Ox 99% on R/A; aa9 18:35 Body Mass Index 29.95 (81.65 kg, 165.10 cm) aa5 ED Course: 18:05 Patient arrived in ED. iw 18:06 Triage completed. iw 18:07 Arm band placed on. iw 18:11 Everett Sewell PA is PHCP. [facility] 18:11 Cb Mcgill MD is Attending Physician. [facility] 18:31 XRAY Chest (1 view) In Process Unspecified. EDMS 19:01 Basic Metabolic Panel Sent. mm9 19:02 CBC with Diff Sent. mm9 19:02 LFT's Sent. mm9 19:02 Magnesium Sent. mm9 19:02 NT PRO-BNP Sent. mm9 19:02 Troponin HS Sent. mm9 19:03 Patient has correct armband on for positive identification. Bed in low position. Call mm9 light in reach. Side rails up X 1. Warm blanket given. Pillow given. Client placed on continuous cardiac and pulse oximetry monitoring. NIBP monitoring applied. rn surgery icu on. Pulse ox on. NIBP on. 19:03 Initial lab(s) drawn, by me, sent to lab. EKG done, by ED staff, reviewed by Cb Mcgill MD. Inserted saline lock: 22 gauge in left antecubital area, using aseptic technique. Blood collected. 19:21 CT Chest Wo Con In Process Unspecified. EDMS 19:25 Kerri Pierson, RN is Primary Nurse. aa9 19:42 Rima Smith PA-C is Hospitalizing Provider. [facility] 19:47 Toan Freire is Hospitalizing Provider. [facility] 21:29 No provider procedures requiring assistance completed. Patient admitted, IV remains in aa9 place. Administered Medications: 19:07 Drug: Lactated Ringers Solution 1000 ml Route: IV; Rate: 500 ml/hr; Site: left aa5 antecubital; Medication: 21:29 VIS not applicable for this client. aa9 Outcome: 19:43 Decision to Hospitalize by Provider. [facility] 21:29 Condition: stable aa9 21:29 Instructed on the need for admit. 22:34 Admitted to Med/surg accompanied by tech, room 231, with chart, Report called to aa9 Sheri 22:56 Patient left the ED. aa9 Signatures: Dispatcher [employer] EDMS Everett Sewell PA PA jmm Williams, Irene, RN Vera Mendosa RN RN aa5 Kerri Pierson, MARK RN annalisa9 Dixie Roach mm9
--- NOTE | 2022-11-06 20:27 | P.HP ---
Certification for Inpatient Patient admitted to: Observation With expected LOS: <2 Midnights Patient will require the following post-hospital care: None Practitioner: I am a practitioner with admitting privileges, knowledge of patient current condition, hospital course, and medical plan of care. Services: Services provided to patient in accordance with Admission requirements found in Title 42 Section 412.3 of the Code of Federal Regulations Patient History Date of Service: 11/06/22 Reason for admission: Dehydration, CHANDAN History of Present Illness: Patient is an 82-year-old female with past medical history of atrial fibrillation on Eliquis, CAD s/p CABG in June, and hypertension who presented to the emergency department via EMS with complaints of dizziness, weakness, and near syncope. Her BP was 100/57 upon arrival. She reports that her BP medications have been changed since her CABG. She does check her blood pressure at home but isn't sure at what point to hold her medications. Her labs are significant for potassium 3.2, CO2 35, creatinine 1.9. No significant findings on imaging. She was given 1 L of fluid in the emergency department. ED provider wishes met patient for observation. Allergies sulfamethoxazole [From Bactrim] Allergy (Verified 05/25/22 09:08) Hives trimethoprim [From Bactrim] Allergy (Verified 05/25/22 09:08) Hives Bactrim DS Allergy (Uncoded 05/25/22 09:08) Unknown Home medications list reviewed: Yes Home Medications: Apixaban [Eliquis] 1 tab PO BID 03/19/20 Hydrocodone 10/APAP 325 [[place] 10/325*] 1 tab PO Q8H PRN 03/19/20 Levothyroxine [Synthroid*] 1 tab PO [id number] 03/19/20 Simvastatin 1 tab PO BEDTIME 03/19/20 Tizanidine HCl 1 tab PO BEDTIME PRN 03/19/20 Amlodipine [Norvasc*] 5 mg PO BEDTIME #30 tab 03/21/20 Furosemide [Lasix*] 1 tab PO SEECOM #30 tab 04/03/20 Losartan Potassium 100 mg PO DAILY #30 tablet 04/03/20 - Past Medical/Surgical History Diabetic: Yes -: HTN -: A.FIB -: CHF -: Cholecystectomy -: appendectomy Psychosocial/ Personal History: Lives at home alone. Son lives nearby. - Family History Father -: Heart disease Mother -: Heart disease - Social History Smoking Status: Never smoker Alcohol use: No CD- Drugs: No Caffeine use: No Place of Residence: Home Review of Systems General: Weakness Integumentary: Other (Dizziness) Physical Examination - Vital Signs Temperature: 98.7 F Blood Pressure: 100/57 Pulse: 81 Respirations: 17 Pulse Ox (%): 95 - Physical Exam General: Alert, In no apparent distress HEENT: Atraumatic, EOMI, Sclerae nonicteric Neck: Supple, 2+ carotid pulse no bruit Respiratory: Clear to auscultation bilaterally, Normal air movement Cardiovascular: Regular rate/rhythm, Normal S1 S2 Gastrointestinal: Normal bowel sounds, No tenderness Musculoskeletal: No tenderness Integumentary: No rashes Neurological: Normal speech, Normal affect - Studies Laboratory Data (last 24 hrs) 11/06/22 18:47: PT 18.7 H, INR 1.70 11/06/22 18:47: WBC 6.70, Hgb 12.5, Hct 38.5, Plt Count 220 11/06/22 18:47: Sodium 138, Potassium 3.2 L, BUN 15, Creatinine 1.91 H, Glucose 134 H, Magnesium 1.9, Total Bilirubin 0.8, AST 45 H, ALT 32, Alkaline Phosphatase 74 Assessment and Plan - Problems (Diagnosis) (1) Weakness Current Visit: Yes Status: Acute (2) Hypothyroidism Current Visit: Yes Status: Chronic Qualifiers: Hypothyroidism type: unspecified Qualified Code(s): E03.9 - Hypothyroidism, unspecified (3) Atrial fibrillation Current Visit: Yes Status: Chronic Qualifiers: Atrial fibrillation type: unspecified chronic Qualified Code(s): I48.20 - Chronic atrial fibrillation, unspecified; I48.2 - Chronic atrial fibrillation (4) CAD (coronary artery disease) Current Visit: Yes Status: Chronic Qualifiers: Coronary Disease-Associated Artery/Lesion type: bypass graft [place] vs. transplanted heart: [place] heart Associated angina: without angina Qualified Code(s): I25.810 - Atherosclerosis of coronary artery bypass graft(s) without angina pectoris (5) Chronic renal disease Current Visit: Yes Status: Chronic Qualifiers: Chronic kidney disease stage: stage 3 (moderate) Chronic kidney disease stage 3 subtype: stage 3b (GFR 30-44) Qualified Code(s): N18.32 - Chronic kidney disease, stage 3b (6) Dehydration Current Visit: Yes Status: Acute (7) CHANDAN (acute kidney injury) Current Visit: Yes Status: Acute - Plan Patient is admitted for observation for near syncope, weakness, dehydration, CHANDAN, hypotension. Continue to hydrate patient with IVF. Hold all antihypertensives given hypotension. Check orthostatic vital signs. Physical therapy consult. Patient reports that she ambulates with a walker at home. Recheck kidney function in the morning. Monitor and replete electrolytes per protocol. Continue home eliquis for VTE prophylaxis. Full code. Discharge Plan: Home Plan to discharge in: 24 Hours - Advance Directives Does patient have a Living Will: No Does patient have a Durable POA for Healthcare: No - Code Status/Comfort Care Code Status Assessed: Yes Code Status: Full Code Physician Review: Patient Assessed, Agree with Above Assessment and Plan Critical Care: No Time Spent Managing Pts Care (In Minutes): 50
[2022-11-06 20:31] LABS: SARS-CoV-2 Antigen Rapid Res Negative (Negative)
[2022-11-06] MEDS ORDERED: ACETAMINOPHEN 500 MG TAB PO PRN (22:35)
[2022-11-06] MEDS: INSULIN -REGULAR HUMAN 50 UNIT/0.5 ML ML SQ SCH (22:35)
[2022-11-07] MEDS: NA CHLORIDE 0.9% 1,000 ML IV SCH ×2 (01:30→12:50)
[2022-11-07 03:41] LABS: Absolute Lymphocytes (CBC) 1.6 K/uL (0.7-4.9); Hematocrit 33.6 % (36.0-45.0); Lymphocytes % 26.1 % (15.3-44.8); MCV 89.1 fL (80-100); MPV 8.1 fL (7.6-11.3); RBC Red Blood Cell Count 3.77 M/uL (3.86-4.86)
[2022-11-07 04:02] LABS: Magnesium 1.9 mg/dL (1.6-2.4); Phosphorus 3.5 mg/dL (2.5-4.9); Potassium 3.2 mmol/L (3.5-5.1)
[2022-11-07 04:26] LABS: Thyroid Stimulating Hormone 85.3 uIU/mL (0.358-3.740)
[2022-11-07 05:44] VITALS: BMI 29.8
[2022-11-07] MEDS ORDERED: POTASSIUM 25 MEQ EFFERV TAB PO ONE (07:22)
[2022-11-07] MEDS: INSULIN -REGULAR HUMAN 50 UNIT/0.5 ML ML SQ SCH ×4 (07:30→20:22)
[2022-11-07] MEDS ORDERED: ENOXAPARIN 30 MG/0.3 ML SQ SCH (09:00)
[2022-11-07 09:24] LABS: Specific Gravity 1.015 (1.005-1.030); Transitional Epithelial <5 /HPF (None Seen); Urine Bacteria 20-50 /HPF (<20); Urine Bilirubin NEGATIVE (Negative); Urine Blood Negative (Negative); Urine Clarity Clear (Clear); Urine Color Yellow (Yellow); Urine Glucose NEGATIVE (Negative); Urine Mucus Slight /HPF (None Seen); Urine Protein TRACE (Negative); Urine RBC <5 /HPF (None Seen); Urine Urobilinogen Normal (Normal); Urine pH 5.5 (5.0-7.0)
[2022-11-07] MEDS: ONDANSETRON 4 MG/2 ML VIAL IV PRN (10:13)
[2022-11-07] MEDS: CEFTRIAXONE 1,000 MG in NA CHLORIDE 0.9% 50 ML IVPB SCH (10:13)
--- NOTE | 2022-11-07 14:32 | P.PN ---
Subjective Date of Service: 11/07/22 Chief Complaint: Dehydration, CHANDAN Patient reports dizziness after ambulating with physical therapy today. Patient noted to be orthostatic. Her blood pressure has improved and she is currently hypertensive. UA suggest UTI. Physical Examination - Vital Signs Temperature: 98.6 F Blood Pressure: 152/71 Pulse: 58 Respirations: 16 Pulse Ox (%): 94 - Studies Laboratory Data (last 24 hrs) 11/06/22 18:47: PT 18.7 H, INR 1.70 11/06/22 18:47: WBC 6.70, Hgb 12.5, Hct 38.5, Plt Count 220 11/06/22 18:47: Sodium 138, Potassium 3.2 L, BUN 15, Creatinine 1.91 H, Glucose 134 H, Magnesium 1.9, Total Bilirubin 0.8, AST 45 H, ALT 32, Alkaline Phosphatase 74 Assessment And Plan - Current Problems (Diagnosis) (1) Orthostatic hypotension Current Visit: Yes Status: Acute (2) UTI (urinary tract infection) Onset Date: 08/11/17 Current Visit: No Status: Acute Qualifiers: Urinary tract infection type: acute cystitis Hematuria presence: without hematuria Qualified Code(s): N30.00 - Acute cystitis without hematuria (3) CHANDAN (acute kidney injury) Current Visit: Yes Status: Acute (4) Generalized weakness Current Visit: Yes Status: Acute (5) CAD (coronary artery disease) Current Visit: Yes Status: Chronic Qualifiers: Coronary Disease-Associated Artery/Lesion type: bypass graft [place] vs. transplanted heart: [place] heart Associated angina: without angina Qualified Code(s): I25.810 - Atherosclerosis of coronary artery bypass graft(s) without angina pectoris (6) Chronic a-fib Current Visit: Yes Status: Chronic (7) HTN (hypertension) Current Visit: Yes Status: Chronic Qualifiers: Hypertension type: primary hypertension Qualified Code(s): I10 - Essential (primary) hypertension (8) Hypothyroidism Current Visit: Yes Status: Chronic Qualifiers: Hypothyroidism type: unspecified Qualified Code(s): E03.9 - Hypothyroidism, unspecified (9) Obesity Current Visit: No Status: Chronic Qualifiers: Obesity type: due to excess calories Obesity classification: adult class 1 (BMI 30 - 34.9) Body mass index: BMI 31.0-31.9 - Plan Physical Exam General: Alert, In no apparent distress HEENT: Atraumatic, EOMI, Sclerae nonicteric Neck: Supple, 2+ carotid pulse no bruit Respiratory: Clear to auscultation bilaterally, Normal air movement Cardiovascular: Regular rate/rhythm, Normal S1 S2 Gastrointestinal: Normal bowel sounds, No tenderness Musculoskeletal: No tenderness Integumentary: No rashes Neurological: Normal speech, Normal affect Plan: Patient noted to be orthostatic and hypertensive in supine position. Resume losartan. Hold hydralazine. Hold Lasix IV hydration for 24 hours. Monitor orthostatic vitals. Patient started on IV Rocephin for UTI Follow urine culture. Continue Synthroid, check TSH and adjust dose as needed. Physical therapy evaluation.
[2022-11-07] MEDS: TRAZODONE 50 MG TABLET PO SCH (20:21)
[2022-11-07] MEDS: ATORVASTATIN 80 MG TAB PO SCH (20:21)
[2022-11-07] MEDS: DIPHENHYDRAMINE 25 MG TAB/CAP PO SCH (20:21)
[2022-11-07] MEDS: GABAPENTIN 300 MG CAP PO SCH (20:21)
[2022-11-07] MEDS: APIXABAN 2.5 MG TABLET PO SCH (20:21)
[2022-11-08 07:21] LABS: Potassium 3.8 mmol/L (3.5-5.1)
[2022-11-08 07:22] LABS: Thyroid Stimulating Hormone 74.5 uIU/mL (0.358-3.740)
[2022-11-08] MEDS: INSULIN -REGULAR HUMAN 50 UNIT/0.5 ML ML SQ SCH ×4 (07:30→20:19)
[2022-11-08] MEDS ORDERED: POTASSIUM CL SA 10 MEQ TAB PO ONE ×2 (07:57→08:03)
[2022-11-08] MEDS: VITAMIN D 1000 UNIT TAB PO SCH (08:01)
[2022-11-08] MEDS: CYANOCOBALAMIN 1,000 MCG TAB PO SCH (08:01)
[2022-11-08] MEDS: MAGNESIUM OXIDE 400 MG TAB PO SCH (08:01)
[2022-11-08] MEDS: GABAPENTIN 300 MG CAP PO SCH ×3 (08:02→20:18)
[2022-11-08] MEDS: APIXABAN 2.5 MG TABLET PO SCH ×2 (08:02→20:18)
[2022-11-08] MEDS: ASPIRIN 81 MG CHEWABLE TABLET PO SCH (08:02)
[2022-11-08] MEDS: CEFTRIAXONE 1,000 MG in NA CHLORIDE 0.9% 50 ML IVPB SCH (08:02)
[2022-11-08] MEDS: ASCORBIC ACID 500 MG TABLET PO SCH (08:02)
[2022-11-08] MEDS: MULTIVITAMIN TAB PO SCH (08:15)
[2022-11-08] MEDS ORDERED: LEVOTHYROXINE SOD 0.025 MG TAB PO SCH (09:00)
[2022-11-08] MEDS: LOSARTAN POTASSIUM 50 MG TABLET PO SCH (09:00)
[2022-11-08] MEDS: ONDANSETRON 4 MG/2 ML VIAL IV PRN (11:43)
--- NOTE | 2022-11-08 13:47 | P.PN ---
Subjective Date of Service: 11/08/22 Chief Complaint: Dehydration, CHANDAN Patient has no new complain. No issues overnight. Patient blood pressure fluctuates Physical Examination - Vital Signs Temperature: 98.7 F Blood Pressure: 139/65 Pulse: 64 Respirations: 16 Pulse Ox (%): 96 Assessment And Plan - Current Problems (Diagnosis) (1) Orthostatic hypotension Current Visit: Yes Status: Acute (2) UTI (urinary tract infection) Onset Date: 08/11/17 Current Visit: No Status: Acute Qualifiers: Urinary tract infection type: acute cystitis Hematuria presence: without hematuria Qualified Code(s): N30.00 - Acute cystitis without hematuria (3) CHANDAN (acute kidney injury) Current Visit: Yes Status: Acute (4) Generalized weakness Current Visit: Yes Status: Acute (5) CAD (coronary artery disease) Current Visit: Yes Status: Chronic Qualifiers: Coronary Disease-Associated Artery/Lesion type: bypass graft [place] vs. transplanted heart: [place] heart Associated angina: without angina Qualified Code(s): I25.810 - Atherosclerosis of coronary artery bypass graft(s) without angina pectoris (6) Chronic a-fib Current Visit: Yes Status: Chronic (7) HTN (hypertension) Current Visit: Yes Status: Chronic Qualifiers: Hypertension type: primary hypertension Qualified Code(s): I10 - Essential (primary) hypertension (8) Hypothyroidism Current Visit: Yes Status: Chronic Qualifiers: Hypothyroidism type: unspecified Qualified Code(s): E03.9 - Hypothyroidism, unspecified (9) Obesity Current Visit: No Status: Chronic Qualifiers: Obesity type: due to excess calories Obesity classification: adult class 1 (BMI 30 - 34.9) Body mass index: BMI 31.0-31.9 - Plan Physical Exam General: Alert, In no apparent distress HEENT: EOMI Respiratory: Clear to auscultation bilaterally, Normal air movement Cardiovascular: Regular rate/rhythm, Normal S1 S2 Gastrointestinal: Normal bowel sounds, No tenderness Musculoskeletal: No tenderness Integumentary: No rashes Neurological: Normal speech, Normal affect Plan: Patient noted to be orthostatic and hypertensive in supine position. Resume losartan. Home dose hydralazine on hold Lasix is on hold Monitor orthostatic vitals. Urine culture growing gram-negative rods. Continue IV Rocephin Follow urine culture. Patient in hypothyroid state given elevated TSH. Synthroid dose increased from 25 mcg to 50 mcg daily. Continue PT. Anticipating disposition to home with home health. Orthostatic precautions.
[2022-11-08] MEDS: ATORVASTATIN 80 MG TAB PO SCH (20:18)
[2022-11-08] MEDS: DIPHENHYDRAMINE 25 MG TAB/CAP PO SCH (20:18)
[2022-11-08] MEDS: TRAZODONE 50 MG TABLET PO SCH (20:18)
[2022-11-09 04:13] VITALS: O2SAT 94
[2022-11-09 04:27] LABS: Potassium 4.2 mmol/L (3.5-5.1)
[2022-11-09] MEDS: INSULIN -REGULAR HUMAN 50 UNIT/0.5 ML ML SQ SCH ×3 (07:30→16:30)
[2022-11-09] MEDS: MAGNESIUM OXIDE 400 MG TAB PO SCH (09:00)
[2022-11-09] MEDS ORDERED: LEVOTHYROXINE SOD 0.05 MG TABLET PO SCH (09:00)
[2022-11-09] MEDS: VITAMIN D 1000 UNIT TAB PO SCH (10:29)
[2022-11-09] MEDS: CEFTRIAXONE 1,000 MG in NA CHLORIDE 0.9% 50 ML IVPB SCH (10:29)
[2022-11-09] MEDS: GABAPENTIN 300 MG CAP PO SCH ×2 (10:29→14:00)
[2022-11-09] MEDS: APIXABAN 2.5 MG TABLET PO SCH (10:30)
[2022-11-09] MEDS: ASCORBIC ACID 500 MG TABLET PO SCH (10:30)
[2022-11-09] MEDS: CYANOCOBALAMIN 1,000 MCG TAB PO SCH (10:30)
[2022-11-09] MEDS: ASPIRIN 81 MG CHEWABLE TABLET PO SCH (10:30)
[2022-11-09] MEDS: MULTIVITAMIN TAB PO SCH (10:30)
[2022-11-09] MEDS: LOSARTAN POTASSIUM 50 MG TABLET PO SCH (10:31)
--- NOTE | 2022-11-09 15:25 | P.PN ---
Subjective Date of Service: 11/09/22 Chief Complaint: Dehydration, CHANDAN No issues overnight. Patient reports generalized weakness. Patient ambulated about 290 feet with physical therapy using a walker today. She is no longer orthostatic. Physical Examination - Vital Signs Temperature: 98.9 F Blood Pressure: 149/60 Pulse: 54 Respirations: 13 Pulse Ox (%): 93 - Studies Microbiology Data (last 24 hrs): 11/07/22 09:06 Clean Catch Urine [place] Count - Final >100,000 CFU/ML. 11/07/22 09:06 Clean Catch Urine - Final Klebsiella Pneumoniae Assessment And Plan - Current Problems (Diagnosis) (1) Orthostatic hypotension Current Visit: Yes Status: Acute (2) UTI (urinary tract infection) Onset Date: 08/11/17 Current Visit: No Status: Acute Qualifiers: Urinary tract infection type: acute cystitis Hematuria presence: without hematuria Qualified Code(s): N30.00 - Acute cystitis without hematuria (3) CHANDAN (acute kidney injury) Current Visit: Yes Status: Acute (4) Generalized weakness Current Visit: Yes Status: Acute (5) CAD (coronary artery disease) Current Visit: Yes Status: Chronic Qualifiers: Coronary Disease-Associated Artery/Lesion type: bypass graft [place] vs. transplanted heart: [place] heart Associated angina: without angina Qualified Code(s): I25.810 - Atherosclerosis of coronary artery bypass graft(s) without angina pectoris (6) Chronic a-fib Current Visit: Yes Status: Chronic (7) HTN (hypertension) Current Visit: Yes Status: Chronic Qualifiers: Hypertension type: primary hypertension Qualified Code(s): I10 - Essential (primary) hypertension (8) Hypothyroidism Current Visit: Yes Status: Chronic Qualifiers: Hypothyroidism type: unspecified Qualified Code(s): E03.9 - Hypothyroidism, unspecified (9) Obesity Current Visit: No Status: Chronic Qualifiers: Obesity type: due to excess calories Obesity classification: adult class 1 (BMI 30 - 34.9) Body mass index: BMI 31.0-31.9 (10) Chronic diastolic heart failure Current Visit: Yes Status: Acute (11) Pulmonary hypertension Current Visit: Yes Status: Acute - Plan Physical Exam General: Alert, In no apparent distress Respiratory: Clear to auscultation bilaterally, Normal air movement Cardiovascular: Regular rate/rhythm, Normal S1 S2 Gastrointestinal: Normal bowel sounds, No tenderness Musculoskeletal: No tenderness Integumentary: No rashes Neurological: Normal speech, Normal affect Plan: Patient initially noted to be orthostatic and hypertensive in supine position. Currently not orthostatic. Continue losartan. Hydralazine held since hospitalization. Resume home dose Lasix for chronic diastolic heart failure and pulmonary hypert ension Urine culture growing Klebsiella pneumonia. Continue IV Rocephin. Patient to complete 3 days of IV Rocephin for uncomplicated UTI. Patient in hypothyroid state given elevated TSH. Synthroid dose increased from 25 mcg to 50 mcg daily. Continue PT. Anticipating disposition to home with home health.
[2022-11-09 16:37] VITALS: BP 159/64; TEMP 98.1
--- NOTE | 2022-11-09 17:42 | P.DS ---
Admission Date: 11/07/22 Discharge Date: 11/09/22 Disposition: DC HOME/HOME HEALTH CARE Discharge Condition: FAIR Reason for Admission: Dehydration, CHANDAN - Problems (1) Orthostatic hypotension Current Visit: Yes Status: Acute (2) UTI (urinary tract infection) Onset Date: 08/11/17 Current Visit: No Status: Acute Qualifiers: Urinary tract infection type: acute cystitis Hematuria presence: without hematuria Qualified Code(s): N30.00 - Acute cystitis without hematuria (3) CHANDAN (acute kidney injury) Current Visit: Yes Status: Acute (4) Generalized weakness Current Visit: Yes Status: Acute (5) CAD (coronary artery disease) Current Visit: Yes Status: Chronic Qualifiers: Coronary Disease-Associated Artery/Lesion type: bypass graft [place] vs. transplanted heart: [place] heart Associated angina: without angina Qualified Code(s): I25.810 - Atherosclerosis of coronary artery bypass graft(s) without angina pectoris (6) Chronic a-fib Current Visit: Yes Status: Chronic (7) HTN (hypertension) Current Visit: Yes Status: Chronic Qualifiers: Hypertension type: primary hypertension Qualified Code(s): I10 - Essential (primary) hypertension (8) Hypothyroidism Current Visit: Yes Status: Chronic Qualifiers: Hypothyroidism type: unspecified Qualified Code(s): E03.9 - Hypothyroidism, unspecified (9) Obesity Current Visit: No Status: Chronic Qualifiers: Obesity type: due to excess calories Obesity classification: adult class 1 (BMI 30 - 34.9) Body mass index: BMI 31.0-31.9 (10) Chronic diastolic heart failure Current Visit: Yes Status: Acute (11) Pulmonary hypertension Current Visit: Yes Status: Acute Brief History of Present Illness: Patient is an 82-year-old female with past medical history of atrial fibrillation on , CAD s/p CABG in June, and hypertension who presented to the emergency department via EMS with complaints of dizziness, weakness, and near syncope. Her BP was 100/57 upon arrival. She reports that her BP medications have been changed since her CABG. She does check her blood pressure at home but isn't sure at what point to hold her medications. Her labs were significant for potassium 3.2, CO2 35, creatinine 1.9. No significant findings on imaging. She was given 1 L of fluid in the emergency department and patient hospitalized for further management. Hospital Course: Patient admitted to the medical floor and hydrated briefly with IV normal saline. Patient initially noted to be orthostatic and hypertensive in supine position. Orthostatic hypotension resolved after hydration. Continued losartan. Hydralazine held during hospitalization. Resume home dose Lasix for chronic diastolic heart failure and pulmonary hypertension UA suggested UTI, urine culture grew pansensitive Klebsiella pneumonia. Treated with 3 days of IV Rocephin for uncomplicated UTI. Patient in hypothyroid state given elevated TSH. Synthroid dose increased from 25 mcg to 50 mcg daily. She was evaluated by PT and she was able to ambulate about 300 feet with a rolling walker. Patient with stable vitals and asymptomatic. She has tolerated her diet. She is deemed stable for discharge. Recommended home health for snf and therapy on discharge. Vital Signs/Physical Exam: Temp Pulse Resp BP Pulse Ox 98.1 F 62 12 159/64 H 96 11/09/22 16:50 11/09/22 16:50 11/09/22 16:50 11/09/22 16:50 11/09/22 16:50 General: Alert, In no apparent distress, Oriented x3 HEENT: Mucous membr. moist/pink Neck: JVD not distended Respiratory: Clear to auscultation bilaterally, Normal air movement Cardiovascular: Regular rate/rhythm, Normal S1 S2, Edema (Trace bilateral lower extremity edema) Gastrointestinal: Normal bowel sounds, Soft and benign, Non-distended, No tenderness Musculoskeletal: No swelling Integumentary: No rashes, No cyanosis Neurological: Normal strength at 5/5 x4 extr Laboratory Data at Discharge: WBC 6.30 K/uL (4.3-10.9) 11/07/22 03:13 Hgb 11.1 g/dL (12.0-15.0) L D 11/07/22 03:13 Hct 33.6 % (36.0-45.0) L 11/07/22 03:13 Plt Count 174 K/uL (152-406) 11/07/22 03:13 PT 18.7 SECONDS (9.5-12.5) H 11/06/22 18:47 INR 1.70 11/06/22 18:47 Sodium 139 mmol/L (136-145) 11/09/22 03:25 Potassium 4.2 mmol/L (3.5-5.1) 11/09/22 03:25 BUN 16 mg/dL (7-18) 11/09/22 03:25 Creatinine 1.41 mg/dL (0.55-1.02) H 11/09/22 03:25 Glucose 109 mg/dL (74-106) H 11/09/22 03:25 Phosphorus 3.5 mg/dL (2.5-4.9) 11/07/22 03:13 Magnesium 1.9 mg/dL (1.6-2.4) 11/07/22 03:13 Total Bilirubin 0.8 mg/dL (0.2-1.0) 11/06/22 18:47 AST 45 U/L (15-37) H 11/06/22 18:47 ALT 32 U/L (13-56) 11/06/22 18:47 Alkaline Phosphatase 74 U/L (45-117) 11/06/22 18:47 Triglycerides 139 mg/dL (<150) 11/07/22 03:13 Cholesterol 101 mg/dL (<200) 11/07/22 03:13 HDL Cholesterol 55 mg/dL (40-60) 11/07/22 03:13 Cholesterol/HDL Ratio 1.84 11/07/22 03:13 Home Medications: Apixaban [Eliquis *] 2.5 mg PO BID 11/07/22 Ascorbic Acid [Vitamin C] 500 mg PO DAILY 11/07/22 Aspirin [Kamila Chewable Aspirin] 81 mg PO DAILY 11/07/22 Atorvastatin Calcium [Lipitor] 80 mg PO BEDTIME 11/07/22 Cholecalciferol (Vitamin D3) [Vitamin D3] 50 mcg PO DAILY 11/07/22 Diphenhydramine HCl [Benadryl] 25 mg PO DAILY 11/07/22 Folic Acid/Multivits-Min [Adult Multivitamin Gummies] 500 mcg PO DAILY 11/07/22 Gabapentin 300 mg PO TID 11/07/22 Losartan Potassium 50 mg PO DAILY 11/07/22 Magnesium Citrate and Oxide [Magnesium] 250 mg PO DAILY 11/07/22 Mecobalamin [B12 Active] 500 mcg PO DAILY 11/07/22 Trazodone [Desyrel*] 50 mg PO DAILY 11/07/22 Cefpodoxime Proxetil 100 mg PO BID #4 tab 11/09/22 Furosemide [Lasix] 20 mg PO DAILY #30 tab 11/09/22 Levothyroxine [Synthroid*] 0.05 mg PO DAILY #30 tab 11/09/22 New Medications: Cefpodoxime Proxetil 100 mg PO BID #4 tab Furosemide [Lasix] 20 mg PO DAILY #30 tab Levothyroxine [Synthroid*] 0.05 mg PO DAILY #30 tab Diet: AHA Activity: Fall precautions Followup: Yang Du MD [Primary Care Provider] - 1-2 Weeks Time spent managing pt's care (in minutes): 35
--- NOTE | 2022-11-10 05:59 | CON ---
Date of Consultation: 11/09/2022 Reason For Consultation: Hypotension and evaluation of her cardiac medications. History Of Present Illness: An 82-year-old female, history of atrial fibrillation on Eliquis, nuñez ry artery disease status post CABG in June, hypertension. She called me back on Wednesday because he r blood pressure was in the low 70s, so I directed her to go to the emergency room. In the ER, she w as found to be dehydrated, in acute renal failure. She apparently was taking Lasix and blood pressur e medications, but lately and she was found to have urinary tract infection, likely that t riggered the episode. All the above was corrected with IV hydration, antibiotics, and now she is oleksandr k to her baseline, ready to go home. However, I was asked to assess in the management to evaluate he r medications at discharge, specifically blood pressure medications and Lasix. Past Medical History: As outlined above in HPI. Medications: Refer to reconciliation sheet for detailed list. Allergies: NO KNOWN DRUG ALLERGIES. Family History: No premature coronary artery disease or cancer. Social History: She does not smoke or drink. Does not use any drugs. Review of Systems: All systems reviewed and they were negative except as mentioned in the HPI. Physical Examination: Vital Signs: Temperature is 98.1, pulse 62, breathing at 12, blood pressure is 159/64, saturating 96 % on room air. General: Pleasant elderly female, in no apparent distress. Head and Neck: Pupils are equal, reactive to light. Intact eye movements. No JVD. No cervical lym phadenopathy. Neck is supple. Thyroid is not enlarged. Lungs: Clear to auscultation. Bilateral rhonchi, wheezing, crackles. No accessory muscle use. Heart: Regular rate and rhythm. No extra sounds. Abdomen: Soft, nontender. Bowel sounds positive. No organomegaly is noted. Extremities: No edema, clubbing, or cyanosis. Intact pulses. Skin: No rash. Neurological: Alert, awake, oriented x3. No acute focal deficits appreciated. Investigations: Creatinine is 1.241 down from 1.91 and troponins are negative. Assessment/recommendation: 1.Hypotension due to dehydration and what triggered this episode likely is the significant urinary t ract infection that she had, which was treated. She was hydrated properly throughout the hospital st ay, and at this point, I asked her to keep the Lasix on hold 1 more day tomorrow, resume at 20 mg monty ly on Wednesday and she will come and see me in the office on Wednesday and then we will readjust the d ose accordingly. 2.Hypertension. The patient was extremely hypotensive initially due to dehydration. Discontinue e hydralazine at discharge, put her back on losartan 50 mg daily and I will readjust her medications in the office in 2 days when she follows up with me. 3.Urinary tract infection. This was treated appropriately. 4.Acute renal failure due to dehydration and this is resolved. SR/MODL Voice ID: [id number] Report ID: [id number]
[2022-11-10] MEDS ORDERED: FUROSEMIDE 40 MG TABLET PO SCH (09:00)
--- NOTE | 2022-11-10 17:24 | EKG ---
Test Date: 2022-11-06 Test Time: 18:59:31 Tower Climber: DAVID MEASUREMENT RESULTS: Intervals: Rate: 84 AR: QRSD: 100 QT: 404 QTc: 477 [place]: P: AR: QRS: -6 T: 158 INTERPRETIVE STATEMENTS: Atrial fibrillation T wave abnormality, consider lateral ischemia or digitalis effect Prolonged QT Abnormal ECG Compared to ECG 05/25/2022 09:34:22 T-wave abnormality now present Possible ischemia now present Prolonged QT interval now present ST (T wave) deviation no longer present Electronically Signed On 11-10-22 17:16:06 SOCIOLOGY RESEARCH ASSISTANT by Magdiel Reyes
== END 2022-11-09 20:09 | disposition home health service (06) | DRG 683 ==
LOC: ER 18:04 → INTOOBSV 20:03 → ERHOLD 20:03 → OBSVTOIN 20:03 → 2ND 21:09 → OBSVTOIN 11-07 14:39
PROVIDERS: ADMIT Internal Medicine; ATTEND Internal Medicine
DX: N17.9 Acute kidney failure, unspecified (principal); I13.0 Hypertensive heart and chronic kidney disease with heart failure and stage 1 through stage 4 chronic kidney disease, or unspecified chronic kidney disease; I25.810 Atherosclerosis of coronary artery bypass graft(s) without angina pectoris; I48.20 Chronic atrial fibrillation, unspecified; N30.00 Acute cystitis without hematuria; I50.32 Chronic diastolic (congestive) heart failure; I95.1 Orthostatic hypotension; N18.32 Chronic kidney disease, stage 3b; E11.22 Type 2 diabetes mellitus with diabetic chronic kidney disease; E03.9 Hypothyroidism, unspecified; I27.20 Pulmonary hypertension, unspecified; E86.0 Dehydration; E66.09 Other obesity due to excess calories; B96.1 Klebsiella pneumoniae [K. pneumoniae] as the cause of diseases classified elsewhere; Z60.2 Problems related to living alone; Z95.1 Presence of aortocoronary bypass graft; Z88.1 Allergy status to other antibiotic agents; Z68.31 Body mass index [BMI] 31.0-31.9, adult; Z79.82 Long term (current) use of aspirin; Z90.49 Acquired absence of other specified parts of digestive tract; Z79.01 Long term (current) use of anticoagulants; Z79.890 Hormone replacement therapy; Z79.899 Other long term (current) drug therapy; Z20.822 Contact with and (suspected) exposure to COVID-19
CPT/HCPCS: 36415; 71045; 71250; 80048; 80061; 80076; 81001; 82947; 83036; 83735; 83880; 84100; 84439; 84443; 84484; 85025; 85610; 87077; 87086; 87088; 87186; 87811; 93005; 97112; 97116; 97161; 99285; G0378; J1650; J2405; J7030; J7120

== ENCOUNTER 2022-12-12 18:41 | Inpatient (IN) | payer OTHER ==
--- OUTSIDE RECORDS SUMMARY | 2022-12-12 18:55 | XMS REPORT | Continuity of Care Document ---
:1940 Author Organization [facility] t Address [address] [place] [address] [place] [id number] Care Team Providers Name Role Phone STEPHEN STOKES Attending Clinician Unavailable Terell Crespo Attending Clinician Unavailable Stephen Stokes MD Attending Clinician [phone] Lucio FLORES, Juana Attending Clinician Unavailable Indira Ornelas MD Attending Clinician Ki Ricci DO Attending Clinician Gaby GREER, Ryan Martinez Attending Clinician Charly Espinoza MD Attending Clinician Fred Perry MD Attending Clinician Nicolasa Kwon MD Attending Clinician CHARLY ESPINOZA Attending Clinician Unavailable Jaylen FLORES, Dee Wright Attending Clinician Unavailable STEPHEN STOKES Admitting Clinician Unavailable NICOLASA KWON Admitting Clinician Unavailable Payers Payer Name Policy Type Policy Effective Date Expiration Date Sour ce Number MEDICARE A B [id number] 2005 00:00:00 GENERIC MEDICARE [id number] 2021 SUPPLEMENT [id number] 00:00:00 [facility] [id number] 2018 [facility] 00:00:00 - [facility] MEDICARE NOVITAS MB [id number] 2005 [facility] 00:00:00 - [facility] [id number] 2018 [facility] 00:00:00 - [facility] [place] MEDICARE NOVITAS MB [id number] 2005 [facility] 00:00:00 - [facility] [place] MEDICARE NOVITAS MB [id number] 2005 [facility] 00:00:00 - [facility] [id number] 2018 [facility] 00:00:00 - [facility] [place] Problems Condition Condition Condition Status Onset Resolution Last Treating Co mments Source Name Details Category Date Date Treatment Clinician Date Metabolic Metabolic Disease Active 2021-[address] [facility] alkalosis alkalosis 10-05 Luke s with with 00:00: Medical respirator respirator 00 Ce nter y acidosis y acidosis Other Other Disease Active 2021-[address] [facility] hypervolem hypervolem 10-05 Felicia kes ia ia 00:00: Medical 00 [place] Pleural Pleural Disease Active 2021-[address] [facility] effusion effusion 10-05 [facility] 00:[facility]: Medical 00 [place] Bradycardi Bradycardi Disease Active 2021-[address] a a 10-04 [facility] 00:00: Medical 00 [place] Generalize Generalize Disease Active 2021-[address] d d 10-04 [facility] abdominal abdominal 00:00: [facility] davie pain pain 00 [place] Hx of CABG Hx of CABG Disease Active 2021-[address] -08 [facility] 00:00: Medical 00 [place] Hypertensi Hypertensi Disease Active 2021-[address] on, on, 10-04 [facility] unspecifie unspecifie 00:00: Me dical d type d type 00 [place] Other Other Disease Active 2021-[address] [facility] hyperlipid hyperlipid 08 Felicia kes emia emia 00:00: Medical 00 [place] Urinary Urinary Disease Active 2021-[address] [facility] [address] retention retention -08 Luke s 00:00: Medical 00 [place] Acute Acute Disease Active 2021-[address] [facility] blood loss blood loss 10-03 Felicia kes anemia anemia 00:00: Medical 00 [place] Acute Acute Disease Active 2021-[address] [facility] [address] pulmonary pulmonary - Luke s insufficie insufficie 00:00: Me dical ncy ncy 00 [place] Coronary Coronary Disease Recurre 2021-[address] [facility] artery artery nce 1-07 [facility] disease disease 00:00: Medical involving involving 00 [facility] [place] coronary coronary artery of artery of [place] 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 00 [place] 07/14/22 07/14/22 Coronary Coronary Disease Recurre [facility] artery artery nce 9-14 kes disease disease 00:00: Medical involving involving 00 Cent [place] coronary coronary artery of artery of [place] heart with heart with other form other form of angina of angina pectoris pectoris Type 2 Type [address] [facility] diabetes diabetes nce 9-14 [facility] mellitus mellitus 00:00: Medica l 00 Center Chronic Chronic Disease Recurre [facility] atrial atrial nce 9-14 [facility] fibrillati fibrillati 00:00: Me diaz on on 00 Center Aortic Aortic Disease Active [facility] valve valve 9-14 kes stenosis, stenosis, 00:00: [facility] moderate moderate 00 Center Hyponatrem Hyponatrem Disease Active [facility] ia ia [facility] Sepsis Sepsis Disease Recurre [facility] without without nce [facility] acute acute Medical organ organ Center dysfunctio dysfunctio n, due to n, due to unspecifie unspecifie d organism d organism ATN (acute ATN (acute Disease Recurre [facility] tubular tubular nce [facility] necrosis) necrosis) [facility] CHANDAN (acute CHANDAN (acute Disease Recurre [facility] kidney kidney nce [facility] injury) injury) Medical Center Status Status Disease Active [facility] post post [facility] cardiac cardiac Medical surgery surgery Center Diarrhea, Diarrhea, Disease Active [facility] unspecifie unspecifie Felicia kes d type d type [facility] [id number] HTN Problem Active Common (hypertens Spirit ion), - CHI benign [facility] [id number] Mixed Problem Active Common hyperlipid Spirit emia - [facility] [id number] Atrial Problem Active Common fibrillati Spirit on, - unspecifie St d [facility] [id number] Hypothyroi Problem Active Com mon dism, Spirit unspecifie - CHI d type [facility] [id number] Stage 3 Problem Active Commo n chronic Spirit kidney - CHI disease [facility] [id number] 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 [id number] SMA Problem Active Common stenosis [facility] - CHI [facility] [id number] Acute on Problem Active Comm on chronic Spirit diastolic - CHI congestive [facility] [id number] Low back Problem Active Comm on pain, Spirit unspecifie - CHI d back pain [facility] laterality Medica l , Center unspecifie d chronicity , with sciatica presence unspecifie d [id number] PVD Problem Active Common (periphera Spirit l vascular - CHI disease) [facility] [id number] Opioid Problem Active Common dependence Spirit in - CHI controlled [facility] [id number] Pulmonary Problem Active Comm on HTN Spirit - CHI [facility] [id number] Acute on Problem Active Comm on chronic Spirit systolic - CHI congestive [facility] [id number] GERD Problem Active Common without Spirit esophagiti - CHI s [facility] [id number] Other Problem Active Common chronic Spirit pain - CHI [facility] [id number] Peripheral Problem Active Co mmon edema [facility] Allergies, Adverse Reactions, Alerts Allergy Allergy Status Severity Reaction(s) Onset Inactive Treating Comm ents Source Name Type Date Date Clinician SULFAMET Allergy Active High Hives 2016-09 [facility] HOXAZOLE 10-11 00:00: 00 SULFAMET Allergy Active High Rash 2016-09 [facility] HOXAZOLE 10-11 -TRIMETH 00:00: OPRIM 00 TRIMETHO Allergy Active High Hives 2016-09 [facility] PRIM 10-11 00:00: 00 Sulfamet Drug Active Hives 2016-[address] [facility] hoxazole Allergy 10-11 [facility] 00:00: Medical 00 Center Sulfamet Drug Active Rash, Hives 2016-[address] hoxazole Allergy 10-11 [facility] -Trimeth 00:00: Medical oprim 00 Center Trimetho Drug Active Hives 2016-[address] [facility] prim Allergy 1-15 [facility] 00:00: Medical 00 Center Family History Family Member Diagnosis Comments Start Date Stop Date Source Natural brother Heart disease [facility] Natural father Heart disease [facility] Natural mother Hypertension [facility] Natural son Diabetes [facility] Natural son Stroke [facility] Social History Social Habit Start Date Stop Date Quantity Comments Source History SDOH [facility] Alcohol Comment Medical C enter History SDOH [facility] Alcohol Std Drinks Medica l Center History SDOH [facility] Alcohol Binge Medical [facility] ter History of Tobacco [facility] - Use [facility] Alcohol intake 2022-08-19 2022-08-[address] [...] Date Source Never Smoker [facility] - [facility] Medications Ordered Filled Start Stop Current Ordering Indication Dosage Frequency Signature Comments Components Source Medication Medication Date Date Medication? Clinician (SIG) Name Name traMADoL 2021-09 Yes 50mg Take [address] [facility] [facility] (ULTRAM) 50 2-27 by mouth 3 Felicia kes mg tablet 10:23: (three) Medic al 09 times Center daily as needed. traMADoL 2021-09 Yes 50mg Take [address] (ULTRAM) 50 2-27 by mouth 3 Felicia kes mg tablet 10:23: (three) Medic al 09 times Center daily as needed. hydrALAZINE 2021-09 Yes 25mg Q.[id number] Take [address] [facility] (APRESOLINE 2-21 [id number] by mouth 3 [facility] ) 25 MG 00:00: 3D (three) Medical tablet 00 times Center daily. hydrALAZINE 2021-09 Yes 25mg Q.[id number] Take [address] [facility] (APRESOLINE 2-21 [id number] by mouth 3 [facility] ) 25 MG 00:00: 3D (three) Medical tablet 00 times Center daily. losartan 2021-09 Yes 50mg QD Take [address] [facility] [facility] (COZAAR) 50 1-18 tablet (50 Felicia kes MG tablet 00:00: mg total) Med ical 00 by mouth Center daily. losartan 2021-09 Yes 50mg QD Take [address] [facility] (COZAAR) 50 1-18 tablet (50 Felicia kes MG tablet 00:00: mg total) Med ical 00 by mouth Center daily. aspirin 81 2021-09- No 81mg QD Take [address] MG chewable 1-17 11-17 tablet (81 L ukes tablet 00:00: 23:59 mg total) Medic al 00 :00 by mouth Center daily. cyanocobala 2021-09- No 100ug QD Take [address] min 1-17 11-17 tablet [facility] (VITAMIN 00:00: 23:59 (100 mcg Medi davie B-12) 100 00 :00 total) by Cente r MCG tablet mouth daily. folic acid 2021-09- No 1mg QD Take [address] (FOLVITE) 1 1-17 11-17 tablet (1 Felicia kes MG tablet 00:00: 23:59 mg total) Me dical 00 :00 by mouth Center daily. thiamine 2021-09- No 100mg QD Take 1 [facility] t 100 MG 1-17 11-17 tablet [facility] tablet 00:00: 23:59 (100 mg Medical 00 :00 total) by Center mouth daily. aspirin 81 2021-09- No 81mg QD Take [address] [facility] [facility] MG chewable 1-17 11-17 tablet (81 L ukes tablet 00:00: 23:59 mg total) Medic al 00 :00 by mouth Center daily. cyanocobala 2021-09- No 100ug QD Take [address] min 1-17 11-17 tablet [facility] (VITAMIN 00:00: 23:59 (100 mcg Medi davie B-12) 100 00 :00 total) by Cente r MCG tablet mouth daily. folic acid 2021-09- No 1mg QD Take [address] [facility] (FOLVITE) 1 1-17 11-17 tablet (1 Felicia kes MG tablet 00:00: 23:59 mg total) Me dical 00 :00 by mouth Center daily. thiamine 2021-09- No 100mg QD Take 1 [facility] t 100 MG -17 -17 tablet [facility] tablet 00:00: 23:59 (100 mg Medical 00 :00 total) by Center mouth daily. tamsulosin 2021-09- No .4mg QD Take [address] [facility] [facility] (FLOMAX) -17 - capsule [facility] 0.4 mg Cap 00:00: 00:00 (0.4 mg Med ical 24 hr 00 :00 total) by Center capsule mouth daily. tamsulosin 2021-09- No .4mg QD Take [address] [facility] (FLOMAX) -17 - capsule [facility] 0.4 mg Cap 00:00: 00:00 (0.4 mg Med ical 24 hr 00 :00 total) by Center capsule mouth daily. lidocaine 2021-09- No 2{patch Q24H Place [address] (LIDODERM) -17 17 } patches [facility] 5 % patch 00:00: 23:59 onto the Med ical 00 :00 skin daily Center for 30 days Remove & Discard patch within 12 hours or as directed by MD. lidocaine 2021-09- No 2{patch Q24H Place [address] (LIDODERM) -17 17 } patches [facility] 5 % patch 00:00: 23:59 onto the Med ical 00 :00 skin daily Center for 30 days Remove & Discard patch within 12 hours or as directed by MD. polyethylen 2021-09- No 17g QD Take [address] [facility] e glycol 1-17 11-20 by mouth [facility] (GLYCOLAX) 00:00: 23:59 daily for M edical 17 gram 00 :00 3 days. Center packet polyethylen 2021-09- No 17g QD Take [address] [facility] e glycol 1-17 11-20 by mouth [facility] (GLYCOLAX) 00:00: 23:59 daily for M edical 17 gram 00 :00 3 days. Center packet furosemide 2021-09- No 1{tbl} Take [address] (LASIX) 20 1-16 11-16 tablet by Domingo es MG tablet 17:12: 00:00 mouth Medica l 40 :00 daily as Center needed for Other For awelling. diphenhydra 2021-09- No Take by [facility] mine HCl 1-16 11-16 mouth as [facility] (BENADRYL 17:12: 00:00 needed. Medi davie ORAL) 40 :00 Center furosemide 2021-09- No 1{tbl} Take [address] (LASIX) 20 -16 11-16 tablet by Domingo es MG tablet 17:12: 00:00 mouth Medica l 40 :00 daily as Center needed for Other For awelling. diphenhydra 2021-09 No Take by [facility] mine HCl 1-16 11-16 mouth as [facility] (BENADRYL 17:12: 00:00 needed. Medi davie ORAL) 40 :00 Center apixaban 2021-09 Yes 2.5mg Q.5D Take [address] (ELIQUIS) 1-16 tablet [facility] 2.5 mg Tab 00:00: (2.5 mg Medi davie tablet 00 total) by Center mouth 2 (two) times daily. melatonin 5 2021-09 Yes 5mg Take [address] [facility] [facility] mg tablet 1-16 tablet (5 [facility] 00:00: mg total) Medical 00 by mouth Center every night as needed for Sleep. apixaban 2021-09 Yes 2.5mg Q.5D Take [address] (ELIQUIS) 1-16 tablet [facility] 2.5 mg Tab 00:00: (2.5 mg Medi davie tablet 00 total) by Center mouth 2 (two) times daily. melatonin 5 2021-09 Yes 5mg Take [address] [facility] [facility] mg tablet 1-16 tablet (5 [facility] 00:00: mg total) Medical 00 by mouth Center every night as needed for Sleep. atorvastati 2021-09 No 80mg QD Take [address] [facility] [facility] n (LIPITOR) 1-16 11-16 tablet (80 L ukes 80 MG 00:00: 23:59 mg total) Medica l tablet 00 :00 by mouth Center nightly. dicyclomine 2021-09 No 10mg Q.25D Take [address] (BENTYL) 10 -16 11-16 capsule Luke s MG capsule 00:00: 23:59 (10 mg Medi davie 00 :00 total) by Center mouth 4 (four) times daily. atorvastati 2021-09 No 80mg QD Take [address] [facility] [facility] n (LIPITOR) 10-1216 tablet (80 L ukes 80 MG 00:00: 23:59 mg total) Medica l tablet 00 :00 by mouth Center nightly. dicyclomine 2021-09 No 10mg Q.25D Take [address] (BENTYL) 10 10-1216 capsule Luke s MG capsule 00:00: 23:59 (10 mg Medi davie 00 :00 total) by Center mouth 4 (four) times daily. acetaminoph 2021-09 No 650mg Take [address] en 10-12 11-11 tablets [facility] (TYLENOL) 00:00: 23:59 (650 mg Medi davie 325 MG 00 :00 total) by Center tablet mouth every 6 (six) hours as needed for up to 360 days. acetaminoph 2021-09 No 650mg Take [address] en [...] Center injection (three) times daily before meals. fluticasone 2021-09- No 2{spray Q.5D 2 sprays [...] up to 30 days. bisacodyL 2021-09- No 5mg Take 1 CHI [...] up to 10 days. nystatin 2021-09- No [id number] Q.25D Take [address] (MYCOSTATIN 10-12 (500,000 Domingo es ) 100,000 00:00: 23:59 Units Medica l unit/mL 00 :00 total) by Center suspension mouth 4 (four) times daily for 10 days. simethicone 2021-09- No 160mg Q.25D Take [address] (MYLICON) 10-12 tablets [facility] 80 MG 00:00: 23:59 (160 mg Medical chewable 00 :00 total) by Center tablet mouth 4 (four) times daily for 10 days. bisacodyL 2021-09- No 10mg Place [address] [facility] (DULCOLAX) 10-12 suppositor Felicia kes 10 mg 00:00: 23:59 y (10 mg Medical suppository 00 :00 total) Center rectally daily as needed for up to 10 days. nystatin 2021-09- No [id number] Q.25D Take [address] (MYCOSTATIN 1-16 11-26 (500,000 Domingo es ) 100,000 00:00: 23:59 Units Medica l unit/mL 00 :00 total) by Center suspension mouth 4 (four) times daily for 10 days. simethicone 2021-09- No 160mg Q.25D Take [address] (MYLICON) 10-12 tablets [facility] 80 MG 00:00: 23:59 (160 mg Medical chewable 00 :00 total) by Center tablet mouth 4 (four) times daily for 10 days. HYDROcodone 2021- No 1{tbl} Take [address] -acetaminop 06-03 tablet by Felicia peñaloza (Izzy Money) 00:00: 00:00 mouth 3 Me dical 10-325 mg 00 :00 (three) Center per tablet times daily as needed for Pain. HYDROcodone 2021- No 1{tbl} Take [address] -acetaminop 06-03 tablet by Felicia peñaloza (Izzy Money) 00:00: 00:00 mouth 3 Me dical 10-325 mg 00 :00 (three) Center per tablet times daily as needed for Pain. simvastatin 2021- No 1{tbl} QD Take [address] (ZOCOR) 20 06-03 tablet by Domingo es MG tablet 00:00: 00:00 mouth Medica l 00 :00 nightly. Center simvastatin 2021- No 1{tbl} QD Take [address] (ZOCOR) 20 06-03 tablet by Domingo es MG tablet 00:00: 00:00 mouth Medica l 00 :00 nightly. Center gabapentin 2021- No 300mg Q.[id number] Take [address] (NEURONTIN) 05-06- [id number] mg by [facility] 300 MG 00:00: 00:00 3D mouth 3 Medical capsule 00 :00 (three) Center times daily. gabapentin 2021- No 300mg Q.[id number] Take [address] [facility] (NEURONTIN) -07 07- [id number] mg by [facility] 300 MG 00:00: 00:00 3D mouth 3 Medical capsule 00 :00 (three) Center times daily. amLODIPine 2021- No 10mg QD Take [address] [facility] [facility] (NORVASC) 3- 11-16 by mouth [facility] 10 MG 00:00: 00:00 daily. Medical tablet 00 :00 [place] amLODIPine 2021- No 10mg QD Take [address] [facility] (NORVASC) 3- 11-16 by mouth [facility] 10 MG 00:00: 00:00 daily. Medical tablet 00 :00 [place] levothyroxi Yes 125ug QD Take [address] ne 3-03 mcg by [facility] (SYNTHROID, 00:00: mouth Medic al LEVOTHROID) 00 daily. [place] 125 MCG tablet levothyroxi Yes 125ug QD Take [address] ne 3-03 mcg by [facility] (SYNTHROID, 00:00: mouth Medic al LEVOTHROID) 00 daily. [place] 125 MCG tablet apixaban 2021- No 5mg Q.5D Take [address] [facility] (Eliquis) 5 2-08 07-16 by mouth 2 L ukes mg Tab 00:00: 00:00 (two) Medical tablet 00 :00 times Center daily. apixaban 2021- No 5mg Q.5D Take [address] [facility] (Eliquis) 5 2-08 07-16 by mouth 2 L ukes mg Tab 00:00: 00:00 (two) Medical tablet 00 :00 times Center daily. losartan 2020-09- No 1{tbl} QD Take [address] [facility] (COZAAR) 1- 11-18 tablet by [facility] 100 MG 00:00: 00:00 mouth Medical tablet 00 :00 daily. [place] losartan 2020-09- No 1{tbl} QD Take [address] (COZAAR) 1-22 11-18 tablet by [facility] 100 MG 00:00: 00:00 mouth Medical tablet 00 :00 daily. [place] Losartan Losartan Yes Terell 1 tablet C ommon Potassium Potassium [place] [facility] Simvastatin Simvastatin Yes Terell 1 tablet Common [place] in the Spirit [facility] [place] Yes Terell 1 tablet Common [place] as needed [facility] Acyclovir Acyclovir Yes Terell 1 tablet Common Crespo [facility] Furosemide Furosemide Yes Terell 1 tablet Common Crespo [facility] Eliquis 5 Eliquis 5 Yes Terell one tablet Common mg mg Crespo [facility] Tizanidine Tizanidine Yes Terell 1 tablet Common HCl HCl [facility]resp[facility] as needed [facility] Gabapentin Gabapentin Yes Terell 1 capsule Common Crespo [facility] Ranitidine Ranitidine Yes Terell 1 capsule Common HCl HCl [facility]resp[facility] at bedtime [facility] Carvedilol Carvedilol Yes Terell 1 tab Common Crespo [facility] Levothyroxi Levothyroxi Yes Terell 1 tablet Common ne Sodium ne Sodium [place] on an Spi rit empty - CHI stomach in [facility] Amlodipine Amlodipine Yes Terell 1 tablet Common Besylate Besylate [facility] Indomethaci Indomethaci Yes Terell 1 capsule Common n ER n ER [place] with food Spirit or milk [facility] Potassium Potassium Yes Terell TAKE 1 C ommon Chloride ER Chloride ER [place] TABLET BY Spirit MOUTH ONCE - CHI DAILY [facility] Losartan Losartan No 1{table QD Losartan Potassium Potassium t} Potassium 100 MG 100 MG 100 MG [place] No 1{table QID [place] 10-325 MG 10-325 MG t_as_ne 10-325 MG [...] 5 t} Besylate 5 MG MG MG [place] No 1{table QID [place] 10-325 MG 10-325 MG t_as_ne 10-325 MG [...] 5 t} Besylate 5 MG MG MG [place] No 1{table QID [place] 10-325 MG 10-325 MG t_as_ne 10-325 MG [...] Date Status Commen ts Source Name Name WineMeNow 2019-06-15 Completed [facility] 15:06:00 - [facility] FluAD FluAD 2019-06-15 Completed [facility] 15:06:00 - [facility] FluAD FluAD 2019-06-15 Completed [facility] 15:06:00 - [facility] FluAD FluAD 2019-06-15 Completed [facility] 00:00:00 - [facility] Vital Signs Vital Name Observation Time Observation [...] 85.276 kg height 2020-09-11 14:10:00 65.5 [in_i] [facility] weight 2020-09-11 14:10:00 176.0 [lb_av] [facility] bmi 2020-09-11 14:10:00 28.84 kg/m2 Common S pirit [facility] blood pressure 2020-09-11 14:10:00 135 mm[Hg] [facility] - systolic [facility] blood pressure 2020-09-11 14:10:00 70 mm[Hg] [facility] - diastolic [facility] Systolic blood 2022-09-22 10:15:00 188 mm[Hg] [facility] Diastolic blood 2022-09-22 10:15:00 118 mm[Hg] [facility] Heart rate 2022-09-22 10:15:00 101 /min [facility] Body temperature 2022-09-22 10:15:00 36.17 Yarely [facility] Respiratory rate 2022-09-22 10:15:00 20 /min [facility] Body weight 2022-09-22 10:15:00 81.375 kg [facility] BMI 2022-09-22 10:15:00 29.85 kg/m2 [facility] Oxygen saturation in 2022-09-22 10:15:00 97 /min [facility] Arterial blood by Medical Ce nter Pulse oximetry Body height 2022-06-25 09:28:00 165.1 cm [facility] Procedures Procedure Date / Time Performing Clinician Source Performed POCT-GLUCOSE METER 2022-08-14 12:23:[address] [facility] POCT-GLUCOSE METER 2022-08-14 08:10:[address] [facility] MAGNESIUM 2022-08-14 03:45:00 Sotero Mora [facility] PHOSPHORUS 2022-08-14 03:45:00 Sotero Mora [facility] CBC W/PLT COUNT & AUTO 2022-08-14 03:45:00 Sotero Mora [facility] I [facility] BASIC METABOLIC PANEL 2022-08-14 03:45:00 Charly Espinoza [facility] CBC W/PLT COUNT & AUTO 2022-08-14 03:45:00 Sotero Mora CH I [facility] POCT-GLUCOSE METER 2022-08-13 21:45:[address] [facility] POCT-GLUCOSE METER 2022-08-13 16:58:[address] [facility] XR CHEST 1 VIEW PORTABLE 2022-08-13 15:02:00 Leila Costello Chu alec [facility] / BEDSIDE [facility] SARS-COV2/RT-PCR ([facility] & 2022-08-13 13:04:00 Fred Perry [facility] REF LABS) [facility] POCT-GLUCOSE METER 2022-08-13 12:35:00 Fred Perry [facility] POCT-GLUCOSE METER 2022-08-13 08:16:00 Charly Espinoza [facility] MAGNESIUM 2022-08-13 04:42:00 Sotero Mora [facility] PHOSPHORUS 2022-08-13 04:42:00 Sotero Mora [facility] CBC W/PLT COUNT & AUTO 2022-08-13 04:42:00 Sotero Mora [facility] BASIC METABOLIC PANEL 2022-08-13 04:42:00 Robby [facility] CBC W/PLT COUNT & AUTO 2022-08-13 04:42:00 Sotero Mora [facility] POCT-GLUCOSE METER 2022-08-12 21:07[facility]SE METER 2022-08-12 17:37:00 [facility] POCT-GLUCOSE METER 2022-08-12 12:30:00 [facility] POCT-GLUCOSE METER 2022-08-12 08[facility]12[facility]ST [facility] VIEW PORTABLE 2022-08-12 05:45:00 Bradley Keita [facility] / BEDSIDE [facility] MAGNESIUM 2022-08-12 04:24:00 Sotero Mora [facility] PHOSPHORUS 2022-08-12 04:24:00 Sotero Mora [facility] CBC W/PLT COUNT & AUTO 2022-08-12 04:24:00 Sotero Mora CH I [facility] BASIC METABOLIC PANEL 2022-08-12 04:24:00 Robby [facility] CBC W/PLT COUNT & AUTO 2022-08-12 04:24:00 Sotero Mora [facility] POCT-GLUCOSE METER 2022-08-11 20:37:00 Robby, [facility] POCT-GLUCOSE METER 2022-08-11 17:13:00 Robby [facility] POCT-GLUCOSE METER 2022-08-11 12:31:00 Robby, [facility] POCT-GLUCOSE METER 2022-08-11 08:25:00 Robby [facility] MAGNESIUM 2022-08-11 04:16:00 Sotero Mora [facility] PHOSPHORUS 2022-08-11 04:16:00 Abby Sotero [facility] CBC W/PLT COUNT & AUTO 2022-08-11 04:16:00 Sotero Mora [facility] BASIC METABOLIC PANEL 2022-08-11 04:16:00 Robby [facility] CBC W/PLT COUNT & AUTO 2022-08-11 04:16:00 Sotero Mora [facility] POCT-GLUCOSE METER 2022-08-10 20:31:00 Robby [facility] POCT-GLUCOSE METER 2022-08-10 17:09:00 Robby [facility] SARS-COV2/RT-PCR ([facility] & 2022-08-10 14:00:00 Sotero Mora [facility] REF LABS) [facility] BLOOD GAS, VENOUS 2022-08-10 14:00:00 Leila Costello [facility] POCT-GLUCOSE METER 2022-08-10 12:10:[facility] 2022-08-10 08:29[facility] BASIC METABOLIC PANEL 2022-08-10 04:57:00 Sotero Mora [facility] MAGNESIUM 2022-08-10 04:57:00 Sotero Mora [facility] PHOSPHORUS 2022-08-10 04:57:00 Sotero Mora [facility] CBC W/PLT COUNT & AUTO 2022-08-10 04:57:00 Sotero Mora [facility] CBC W/PLT COUNT & AUTO 2022-08-10 04:57:00 Sotero Mora [facility] POCT-GLUCOSE METER 2022-08-09 [facility]:15[facility] 2022-08-09 16:45:00 [facility] PO[facility]SE METER 2022-08-09 11:44:00 [facility]SE [facility] 2022-08-09 07:57:00 [facility] BASIC METABOLIC PANEL 2022-08-09 04:21:00 Sotero Mora [facility] MAGNESIUM 2022-08-09 04:21:00 Sotero Mora [facility] PHOSPHORUS 2022-08-09 04:21:00 Sotero Mora [facility] CBC W/PLT COUNT & AUTO 2022-08-09 04:21:00 Sotero Mora [facility] CBC W/PLT COUNT & AUTO 2022-08-09 04:21:00 Sotero Mora [facility] POCT-GLUCOSE METER 2022-08-08 20:46:00 [facility] 2022-08-08 17:20:00 [facility] PO[facility]UCOSE METER 2022-08-08 13:19:00 [facility] PO[facility]UCOSE METER 2022-08-08 08:42:[facility] BASIC [facility]OLIC PANEL 2022-08-08 04:52:00 Sotero Mora [facility] MAGNESIUM 2022-08-08 04:52:00 Sotero Mora [facility] PHOSPHORUS 2022-08-08 04:52:00 Abby [facility] CBC W/PLT COUNT & AUTO 2022-08-08 04:52:00 Sotero Mora [facility] CBC W/PLT COUNT & AUTO 2022-08-08 04:52:00 Keron Moran [facility] POCT-GLUCOSE METER 2022-08-07 17:24:00 [facility]SE [facility] 2022-08-07 12:52:[facility] POCT-[facility]SE METER 2022-08-07 08:40:[facility] BASIC METABOLIC PANEL 2022-08-07 04:04:00 Abby Sotero [facility] MAGNESIUM 2022-08-07 04:04:00 Sotero Mora [facility] PHOSPHORUS 2022-08-07 04:04:00 Abby [facility] CBC W/PLT COUNT & AUTO 2022-08-07 04:04:00 Sotero Mora [facility] CBC W/PLT COUNT & AUTO 2022-08-07 04:04:00 Keron Moran [facility] POCT-GLUCOSE METER 2022-08-06 21:04:00 [facility] POCT-[facility]UCOSE METER 2022-08-06 17:03:[facility] 1 VIEW PORTABLE 2022-08-06 16:05:00 Easton Ch [facility] / BEDSIDE Medical [place] 2D ECHO W/ DOPPLER 2022-08-06 11:46:30 Uziel Martinez [facility] (CW/PW/COLOR) [facility] POCT-GLUCOSE METER 2022-08-06 08:43:00 [facility] BASIC METABOLIC PANEL 2022-08-06 04:02:00 Sotero Mora [facility] MAGNESIUM 2022-08-06 04:02:00 Sotero Mora [facility] PHOSPHORUS 2022-08-06 04:02:00 Sotero Mora [facility] CBC W/PLT COUNT & AUTO 2022-08-06 04:01:00 Sotero Mora [facility] CBC W/PLT COUNT & AUTO 2022-08-06 04:01:00 Sotero Mora [facility] URINALYSIS W/ REFLEX 2022-08-05 23:31:00 Malcolm Hewitt [facility] URINE CULTURE [facility] POCT-GLUCOSE METER 2022-08-05 22:32:00 Robby [facility] POCT-GLUCOSE METER 2022-08-05 17:14:00 Robby [facility] BASIC METABOLIC PANEL 2022-08-05 17:03:00 Uziel Martinez [facility] MAGNESIUM 2022-08-05 17:03:00 Uziel Martinez [facility] POCT-GLUCOSE METER 2022-08-05 12:14:00 Robby [facility] POCT-GLUCOSE METER 2022-08-05 08:04:00 Robby [facility] BASIC METABOLIC PANEL 2022-08-05 03:26:00 Sotero Mora [facility] MAGNESIUM 2022-08-05 03:26:00 Sotero Mora [facility] PHOSPHORUS 2022-08-05 03:26:00 Sotero Mora [facility] CBC W/PLT COUNT & AUTO 2022-08-05 03:26:00 Sotero Mora [facility] B-TYPE NATRIURETIC FACTOR 2022-08-05 03:26:00 Easton Ch [facility] (BNP) [facility] CBC W/PLT COUNT & AUTO 2022-08-05 03:26:00 Sotero Mora [facility] POCT-GLUCOSE METER 2022-08-04 20:45:00 Robby [facility] POCT-GLUCOSE METER 2022-08-04 17:09:00 Robby [facility] POCT-GLUCOSE METER 2022-08-04 12:14:00 Robby [facility] BASIC METABOLIC PANEL 2022-08-04 11:39:00 Abby Sotero [facility] CT CHEST WITHOUT IV 2022-08-04 08:22:00 Ch Easton Miryam [facility] POCT-GLUCOSE METER 2022-08-04 07:20:00 [facility]OLIC PANEL 2022-08-04 04:07:00 Sotero Mora [facility] MAGNESIUM 2022-08-04 04:07:00 Sotero Mora [facility] PHOSPHORUS 2022-08-04 04:07:00 Abby [facility] CBC W/PLT COUNT & AUTO 2022-08-04 04:07:00 Sotero Mora [facility] CBC W/PLT COUNT & AUTO 2022-08-04 04:07:00 Sotero oMra [facility] POCT-GLUCOSE METER 2022-08-03 21:28:00 Robby [facility] POCT-GLUCOSE METER 2022-08-03 17:19:[facility] SARS-[facility]OV2/[facility] ([facility] & 2022-08-03 14:58:00 Abby [facility] REF [facility] BASIC METABOLIC PANEL 2022-08-03 14:57:00 Abby [facility] POCT-GLUCOSE METER 2022-08-03 07:49:00 [facility]OLIC PANEL 2022-08-03 05:09:00 Abby [facility] MAGNESIUM 2022-08-03 05:09:00 Sotero Mora [facility] PHOSPHORUS 2022-08-03 05:09:00 Sotero Mora [facility] CBC W/PLT COUNT & AUTO 2022-08-03 05:09:00 Sotero Mora [facility] BLOOD GAS, VENOUS 2022-08-03 05:09:00 Leila Costello [facility] CBC W/PLT COUNT & AUTO 2022-08-03 05:09:00 Sotero Mora [facility] POCT-GLUCOSE METER 2022-08-02 20:36:[address] [facility] POCT-GLUCOSE METER 2022-08-02 17:14:00 Ryan Griffin [facility] US THORACENTESIS 2022-08-02 13:56:00 Sotero Mora [facility] XR CHEST PA OR AP 1 VIEW 2022-08-02 13:50:00 Cherri Joyce [facility] IN DEPT Medical Center POCT-GLUCOSE METER 2022-08-02 12:29:00 Gaby Ryan [facility] BASIC METABOLIC PANEL 2022-08-02 10:56:00 Sotero Mora [facility] PT/APTT 2022-08-02 10:56:00 Cherri Joyce [facility] POCT-GLUCOSE METER 2022-08-02 08:04:00 Ryan Griffin [facility] MAGNESIUM 2022-08-02 04:05:00 Sotero Mora [facility] PHOSPHORUS 2022-08-02 04:05:00 Abby Sotero [facility] CBC W/PLT COUNT & AUTO 2022-08-02 04:05:00 Sotero Mora [facility] BASIC METABOLIC PANEL 2022-08-02 04:05:00 Sotero Mora [facility] CBC W/PLT COUNT & AUTO 2022-08-02 04:05:00 Sotero Mora [facility] POCT-GLUCOSE METER 2022-08-01 21:31:00 Ryan Griffin [facility] BASIC METABOLIC PANEL 2022-08-01 20:40:00 Sotero Mora [facility] POCT-GLUCOSE METER 2022-08-01 17:26:00 Ryan Griffin [facility] BASIC METABOLIC PANEL 2022-08-01 11:55:00 Sotero Mora [facility] POCT-GLUCOSE METER 2022-08-01 07:37:00 Ki Ricci [facility] MAGNESIUM 2022-08-01 04:22:00 Sotero Mora [facility] PHOSPHORUS 2022-08-01 04:22:00 Sotero Mora [facility] CBC W/PLT COUNT & AUTO 2022-08-01 04:22:00 Sotero Mora [facility] CALCIUM, IONIZED 2022-08-01 04:22:00 [facility] COMPREHENSIVE METABOLIC 2022-08-01 04:22:00 [facility] CBC W/PLT COUNT & AUTO 2022-08-01 04:22:[address] [facility] XR CHEST 1 VIEW PORTABLE 2022-08-01 01:29:00 Suresh Armstrong [facility] POCT-GLUCOSE METER 2022-07-31 21:36:00 Ki Ricci [facility] BASIC METABOLIC PANEL 2022-07-31 20:00:00 Sotero Mora [facility] POCT-GLUCOSE METER 2022-07-31 16:31:00 Ki Ricci [facility] BASIC METABOLIC PANEL 2022-07-31 11:48:00 Sotero Mora [facility] POCT-GLUCOSE METER 2022-07-31 11:45:00 Ki Ricci [facility] POCT-GLUCOSE METER 2022-07-31 06:13:00 Ki Ricci [facility] MAGNESIUM 2022-07-31 01:51:00 Sotero Mora [facility] PHOSPHORUS 2022-07-31 01:51:00 Sotero Mora [facility] CBC W/PLT COUNT & AUTO 2022-07-31 01:51:00 Abby Sotero Gamboa [facility] BLOOD GAS, ARTERIAL 2022-07-31 01:51:00 Juana Jalloh [facility] CALCIUM, IONIZED 2022-07-31 01:51:00 [facility] COMPREHENSIVE METABOLIC 2022-07-31 01:51:00 Junito [facility] CBC W/PLT COUNT & AUTO 2022-07-31 01:51:[address] [facility] (CELLAVISION MANUAL DIFF) 2022-07-31 01:51:00 Jayashree Bob [facility] XR CHEST 1 VIEW PORTABLE 2022-07-31 01:16:00 Suresh Armstrong sa [facility] POCT-GLUCOSE METER 2022-07-30 23:16:00 Ki Ricci [facility] POCT-GLUCOSE METER 2022-07-30 17:55:00 Ki Ricci [facility] BASIC METABOLIC PANEL 2022-07-30 16:27:[address] [facility] SODIUM, RANDOM URINE 2022-07-30 15:52:00 Leila Costello [facility] CHLORIDE, RANDOM URINE 2022-07-30 15:52:00 Leila Costello [facility] POTASSIUM, RANDOM URINE 2022-07-30 15:52:00 Pravin Leilaceline Obrien [facility] OSMOLALITY, URINE 2022-07-30 15:52:00 Pravin Leilaceline Obrien [facility] BLOOD GAS, ARTERIAL 2022-07-30 12:35:00 Don Oconnell [facility] POCT-GLUCOSE METER 2022-07-30 11:49:00 Ki Ricci [facility] BASIC METABOLIC PANEL 2022-07-30 07:37:[address] [facility] BLOOD GAS, ARTERIAL 2022-07-30 07:36:00 EbpilotinyJuanis masonv [facility] POCT-GLUCOSE METER 2022-07-30 06:38:00 Ki Ricci [facility] XR CHEST 1 VIEW PORTABLE 2022-07-30 04:52:00 Suresh Armstrong [facility] / BEDSIDE [facility] BLOOD GAS, ARTERIAL 2022-07-30 03:47:00 Juana Jalloh [facility] MAGNESIUM 2022-07-30 03:46:00 Sotero Mora [facility] PHOSPHORUS 2022-07-30 03:46:00 Sotero Mora [facility] CBC W/PLT COUNT & AUTO 2022-07-30 03:46:00 Sotero Mora [facility] CALCIUM, IONIZED 2022-07-30 03:46:00 Suresh Armstrong [facility] OSMOLALITY, SERUM 2022-07-30 03:46:00 Leila Costello [facility] CBC W/PLT COUNT & AUTO 2022-07-30 03:46:[address] [facility] (CELLAVISION MANUAL DIFF) 2022-07-30 03:46:00 Jayashree Bob [facility] BASIC METABOLIC PANEL 2022-07-30 00:11:[address] [facility] POCT-GLUCOSE METER 2022-07-29 23:54:00 Ki Ricci [facility] BASIC METABOLIC PANEL 2022-07-29 16:43:[address] [facility] POCT-GLUCOSE METER 2022-07-29 16:42:00 Radhames [facility] POCT-GLUCOSE METER 2022-07-29 12:00:00 Ki Ricci [facility] SODIUM 2022-07-29 11:48:00 ObrienLaurence Germán [facility] BASIC METABOLIC PANEL 2022-07-29 06:07:[address] [facility] POCT-GLUCOSE METER 2022-07-29 05:46:00 Ki Ricci [facility] XR CHEST 1 VIEW PORTABLE 2022-07-29 05:10:00 Kerwin Snyder [facility] / BEDSIDE Medical Center BLOOD GAS, ARTERIAL 2022-07-29 02:55:00 Juana Jalloharp [facility] MAGNESIUM 2022-07-29 02:54:00 WhiteSotero [facility] PHOSPHORUS 2022-07-29 02:54:00 Abby Sotero [facility] CBC W/PLT COUNT & AUTO 2022-07-29 02:54:00 Abby Sotero [facility] CALCIUM, IONIZED 2022-07-29 02:54:00 Suresh Armstrong [facility] BASIC METABOLIC PANEL 2022-07-29 02:54:00 YeimiJuana [facility] CBC W/PLT COUNT & AUTO 2022-07-29 02:54:[address] [facility] BASIC METABOLIC PANEL 2022-07-29 00:35:[address] [facility] POCT-GLUCOSE METER 2022-07-28 23:03:00 Ki Ricci [facility] RRL CRITICAL LABS 2022-07-28 20:57:00 Marybeth Beltran [facility] (ABG,NA,K,H&H,GLUCOSE) Medical enter BLOOD GAS, ARTERIAL 2022-07-28 20:57:00 Marybeth Beltran [facility] SODIUM NA-STAT LAB 2022-07-28 20:57:00 Marybeth Beltran [facility] POTASSIUM-STAT LAB 2022-07-28 20:57:00 Marybeth Beltran [facility] GLUCOSE-STAT LAB 2022-07-28 20:57:00 Marybeth Beltran [facility] HGB/HCT (H&H) - STAT LAB 2022-07-28 20:57:[address] [facility] RRL CRITICAL LABS 2022-07-28 18:15:31 Marybeth Beltran [facility] (ABG,NA,K,H&H,GLUCOSE) Medical C enter SODIUM NA-STAT LAB 2022-07-28 18:15:31 Marybeth Beltran [facility] POTASSIUM-STAT LAB 2022-07-28 18:15:20 Marybeth Beltran [facility] HGB/HCT (H&H) - STAT LAB 2022-07-28 18:15:[address] [facility] GLUCOSE-STAT LAB 2022-07-28 18:14:43 Marybeth Beltran [facility] BLOOD GAS, ARTERIAL 2022-07-28 17:20:38 Marybeth Beltran [facility] POCT-GLUCOSE METER 2022-07-28 15:53:00 Ki Ricci [facility] RRL CRITICAL LABS 2022-07-28 15:24:00 Marybeth Beltran [facility] (ABG,NA,K,H&H,GLUCOSE) Medical Tom enter BLOOD GAS, ARTERIAL 2022-07-28 15:24:00 Marybeth Beltran [facility] SODIUM NA-STAT LAB 2022-07-28 15:24:00 Marybeth Beltran [facility] POTASSIUM-STAT LAB 2022-07-28 15:24:00 Marybeth Beltran [facility] GLUCOSE-STAT LAB 2022-07-28 15:24:00 Marybeth Beltran [facility] HGB/HCT (H&H) - STAT LAB 2022-07-28 15:24:[address] [facility] BASIC METABOLIC PANEL 2022-07-28 15:24:[address] [facility] RRL CRITICAL LABS 2022-07-28 13:05:00 David Beltrana Angela [facility] (ABG,NA,K,H&H,GLUCOSE) Medical C enter BLOOD GAS, ARTERIAL 2022-07-28 13:05:00 Marybeth Beltran [facility] SODIUM NA-STAT LAB 2022-07-28 13:05:00 David Beltrana Angela [facility] POTASSIUM-STAT LAB 2022-07-28 13:05:00 Marybeth Beltran [facility] GLUCOSE-STAT LAB 2022-07-28 13:05:00 David Beltrana Angela [facility] HGB/HCT (H&H) - STAT LAB 2022-07-28 13:05:[address] [facility] BASIC METABOLIC PANEL 2022-07-28 13:05:[address] [facility] RRL CRITICAL LABS 2022-07-28 11:35:00 Marybeth Beltran [facility] (ABG,NA,K,H&H,GLUCOSE) Medical C enter BLOOD GAS, ARTERIAL 2022-07-28 11:35:00 Marybeth Beltran [facility] SODIUM NA-STAT LAB 2022-07-28 11:35:00 Marybeth Beltran [facility] POTASSIUM-STAT LAB 2022-07-28 11:35:00 Marybeth Beltran [facility] GLUCOSE-STAT LAB 2022-07-28 11:35:00 Marybeth Beltran [facility] HGB/HCT (H&H) - STAT LAB 2022-07-28 11:35:[address] [facility] BASIC METABOLIC PANEL 2022-07-28 11:35:[address] [facility] POCT-GLUCOSE METER 2022-07-28 11:32:00 Ki Ricci [facility] BASIC METABOLIC PANEL 2022-07-28 08:44:00 Suresh Armstrong [facility] RRL CRITICAL LABS 2022-07-28 08:44:00 Laurence Obrien [facility] (ABG,NA,K,H&H,GLUCOSE) Medical C enter CALCIUM, IONIZED 2022-07-28 08:44:00 Laurence Obrien [facility] BLOOD GAS, ARTERIAL 2022-07-28 08:44:[address] [facility] SODIUM NA-STAT LAB 2022-07-28 08:44:00 Laurence Obrien [facility] POTASSIUM-STAT LAB 2022-07-28 08:44:00 Laurence Obrien [facility] GLUCOSE-STAT LAB 2022-07-28 08:44:00 Laurence Obrien [facility] HGB/HCT (H&H) - STAT LAB 2022-07-28 08:44:00 Laurence Obrien [facility] POCT-GLUCOSE METER 2022-07-28 07:38:00 Radhames [facility] POCT-GLUCOSE METER 2022-07-28 06:46:00 Radhames [facility] XR CHEST 1 VIEW PORTABLE 2022-07-28 05:00:00 eKrwin Snyder [facility] LACTIC ACID, ARTERIAL 2022-07-28 04:28:00 Suresh Armstrong [facility] SODIUM NA-STAT LAB 2022-07-28 04:22:00 Jayashree Bob [facility] POTASSIUM-STAT LAB 2022-07-28 04:22:00 Jayashree Bob [facility] GLUCOSE-STAT LAB 2022-07-28 04:22:00 Jayashree Bob [facility] HGB/HCT (H&H) - STAT LAB 2022-07-28 04:22:00 Jayashree Bob [facility] BLOOD GAS, ARTERIAL 2022-07-28 04:08:00 Jayashree Bob [facility] CALCIUM, IONIZED 2022-07-28 01:10:00 [facility] & AUTO 2022-07-28 01:09:00 Sotero Mora [facility] CBC W/PLT COUNT & AUTO 2022-07-28 01:09:[address] [facility] BLOOD GAS, ARTERIAL 2022-07-28 01:08:00 Jayashree Bob [facility] MAGNESIUM 2022-07-28 01:05:00 Sotero Mora [facility] PHOSPHORUS 2022-07-28 01:05:00 Sotero Mora [facility] BASIC METABOLIC PANEL 2022-07-28 01:05:00 Jayashree Bob [facility] RRL CRITICAL LABS 2022-07-28 01:05:00 Jayashree Bob [facility] (ABG,NA,K,H&H,GLUCOSE) Medical Tom gupta SODIUM NA-STAT LAB 2022-07-28 01:05:00 Jayashree Bob [facility] POTASSIUM-STAT LAB 2022-07-28 01:05:00 Jayashree Bob [facility] GLUCOSE-STAT LAB 2022-07-28 01:05:00 Jayashree Bob [facility] HGB/HCT (H&H) - STAT LAB 2022-07-28 01:05:00 Jayashree Bob [facility] POCT-GLUCOSE METER 2022-07-27 23:55:00 Indira Ornelas [facility] BLOOD GAS, ARTERIAL 2022-07-27 20:09:00 Suresh Armstrong [facility] RRL CRITICAL LABS 2022-07-27 20:07:00 Jayashree Bob [facility] es (ABG,NA,K,H&H,GLUCOSE) Medical C enter SODIUM NA-STAT LAB 2022-07-27 20:07:00 Jayashree Bob [facility] POTASSIUM-STAT LAB 2022-07-27 20:07:00 Jayashree Bob [facility] GLUCOSE-STAT LAB 2022-07-27 20:07:00 Jayashree Bob [facility] HGB/HCT (H&H) - STAT LAB 2022-07-27 20:07:00 Jayashree Bob [facility] BASIC METABOLIC PANEL 2022-07-27 20:07:00 Suresh Armstrong [facility] [place] INSERT 2022-07-27 18:11:10 Jayashree Bob [facility] CATH,ART,PERCUT,[facility]ORTTERM [facility] l [facility] US GUIDE, VASCULAR ACCESS 2022-07-27 18:07:22 Jayashree Bob I [facility] XR CHEST 1 VIEW PORTABLE 2022-07-27 17:14:00 Jayashree Bob [facility] BLOOD CULTURE 2022-07-27 16:02:00 Jayashree Bob [facility] BLOOD GAS, ARTERIAL 2022-07-27 16:02:00 Jayashree Bob [facility] MAGNESIUM 2022-07-27 16:02:00 Jayashree Bob [facility] PHOSPHORUS 2022-07-27 16:02:00 Jayashree Bob [facility] BASIC METABOLIC PANEL 2022-07-27 16:02:00 Jayashree Bob [facility] XR CHEST 1 VIEW PORTABLE 2022-07-27 14:38:00 Jayashree Bob [facility] BLOOD CULTURE 2022-07-27 14:33:00 Jayashree Bob [facility] LACTIC ACID, ARTERIAL 2022-07-27 14:28:00 Jayashree Bob [facility] APTT 2022-07-27 14:28:00 Jayashree Bob [facility] PROTHROMBIN TIME/INR 2022-07-27 14:28:00 Jayashree Bob [facility] CBC W/PLT COUNT & AUTO 2022-07-27 14:28:[address] [facility] PROCALCITONIN 2022-07-27 14:28:00 Jayashree Bob [facility] CBC W/PLT COUNT & AUTO 2022-07-27 14:28:[address] [facility] HEPATIC FUNCTION PANEL 2022-07-27 13:22:00 Ki Ricci [facility] POCT-GLUCOSE METER 2022-07-27 11:48:00 Indira Ornelased [facility] POCT-GLUCOSE METER 2022-07-27 11:28:00 [facility]O 2022-07-27 09:06:00 Stephen Stokes [facility] BASIC METABOLIC PANEL 2022-07-27 09:06:00 Stephen Stokes [facility] CBC W/PLT COUNT & AUTO 2022-07-27 09:06:00 Kike Stephen [facility] (CELLAVISION MANUAL DIFF) 2022-07-27 09:06:00 Kike Stephen Tom [facility] POCT-GLUCOSE METER 2022-07-27 08:10:00 Indira Ornelas [facility] URINE CULTURE 2022-07-27 08:06:00 KikeStephen samuel [facility] URINALYSIS W/ REFLEX 2022-07-27 08:06:00 KikeStephen samuel [facility] URINE CULTURE [facility] BASIC METABOLIC PANEL 2022-07-27 05:35:00 Helena Mukherjee [facility] MAGNESIUM 2022-07-27 05:35:00 Sotero Mora [facility] PHOSPHORUS 2022-07-27 05:35:00 Sotero Mora [facility] CBC W/PLT COUNT & AUTO 2022-07-27 05:35:00 [facility]T [facility] & AUTO 2022-07-27 05:35:00 [facility]LL[facility] MANUAL DIFF) 2022-07-27 05:35:00 Helena Mukherjee [facility] POCT-GLUCOSE METER 2022-07-26 21:55:00 Indira Ornelas [facility] POCT-GLUCOSE METER 2022-07-26 17:03:00 Indira Ornelas [facility] POCT-GLUCOSE METER 2022-07-26 13:28:00 Indira Ornelas [facility] [place] CT CHEST WITHOUT IV 2022-07-26 11:49:00 Holley Mustafa [facility] POCT-GLUCOSE METER 2022-07-26 09:09:00 Indira Ornelas [facility] XR CHEST 1 VIEW PORTABLE 2022-07-26 06:24:00 Tammie Harrington [facility] BASIC METABOLIC PANEL 2022-07-26 05:07:00 [facility]22-07-26 05:07:00 Sotero Mora [facility] PHOSPHORUS 2022-07-26 05:07:00 Abby Sotero [facility] CBC W/PLT COUNT & AUTO 2022-07-26 05:07:00 Lonny Kaiser [facility] C-REACTIVE PROTEIN 2022-07-26 05:07:00 Holley Mustafa [facility] B-TYPE NATRIURETIC FACTOR 2022-07-26 05:07:00 Leila Costello [facility] (BNP) [facility] CBC W/PLT COUNT & AUTO 2022-07-26 05:07:00 [facility] (CELLAVISION MANUAL DIFF) 2022-07-26 05:07:[address] [facility] POCT-GLUCOSE METER 2022-07-25 20:50:00 Indira Ornelas [facility] XR CHEST 1 VIEW PORTABLE 2022-07-25 19:40:[address] [facility] POCT-GLUCOSE METER 2022-07-25 16:34:00 Indira Ornelas [facility] BASIC METABOLIC PANEL 2022-07-25 15:05:[address] [facility] US THORACENTESIS 2022-07-25 14:11:00 [facility] BODY FLUID CELL COUNT 2022-07-25 13:57:00 Johnson [facility] WITH DIFFERENTIAL [facility] BODY FLUID CULTURE + GRAM 2022-07-25 13:57:00 Johnson [facility] STAIN [facility] PROTEIN, BODY FLUID 2022-07-25 13:56:00 [facility] LACTATE DEHYDROGENASE 2022-07-25 13:56:00 Indira Ornelas [facility] ([facility]H) BODY [facility] GLUCOSE, BODY FLUID 2022-07-25 13:56:00 Johnson [facility] XR CHEST 1 VIEW PORTABLE 2022-07-25 13:55:00 Cherri Joyce on [facility] POCT-GLUCOSE METER 2022-07-25 11:17:00 [facility] PT/APTT 2022-07-25 10:01:00 Raul Branham [facility] XR CHEST 1 VIEW PORTABLE 2022-07-25 07:21:00 Tammie Harrington Ray [facility] POCT-GLUCOSE METER 2022-07-25 06:45:00 Stephen Stokes [facility] BASIC METABOLIC PANEL 2022-07-25 04:50:00 Helena Mukherjee [facility] MAGNESIUM 2022-07-25 04:50:00 Sotero Mora [facility] PHOSPHORUS 2022-07-25 04:50:00 Sotero Mora [facility] CBC W/PLT COUNT & AUTO 2022-07-25 04:50:[address] [facility] CORTISOL 2022-07-25 04:50:00 Leila Costello [facility] CBC W/PLT COUNT & AUTO 2022-07-25 04:50:[address] [facility] (CELLAVISION MANUAL DIFF) 2022-07-25 04:50:00 Helena Mukherjee CH I [facility] POCT-GLUCOSE METER 2022-07-24 20:53:00 KikeStephen samuel [facility] LIMITED 2D ECHOCARDIOGRAM 2022-07-24 17:53:02 Leila Costello [facility] BASIC METABOLIC PANEL 2022-07-24 17:30:00 Leila Costello [facility] POCT-GLUCOSE METER 2022-07-24 16:35:00 Kike Stephen [facility] POCT-GLUCOSE METER 2022-07-24 11:34:00 [facility] Stephen [facility] LACTIC ACID, VENOUS 2022-07-24 11:01:00 Leila Costello [facility] CONT WAVE PULSED DOPPLER 2022-07-24 10:15:09 Leila Costello [facility] POCT-GLUCOSE METER 2022-07-24 08:15:00 Stephen Stokes [facility] XR CHEST 1 VIEW PORTABLE 2022-07-24 07:15:00 Tammie Harrington Ray [facility] BASIC METABOLIC PANEL 2022-07-24 04:13:00 Helena Mukherjee [facility] MAGNESIUM 2022-07-24 04:13:00 Sotero Mora [facility] PHOSPHORUS 2022-07-24 04:13:00 Sotero Mora [facility] CBC W/PLT COUNT & AUTO 2022-07-24 04:13:[address] [facility] LIPASE 2022-07-24 04:13:00 AmaratRamy armendariz [facility] HEPATIC FUNCTION PANEL 2022-07-24 04:13:00 Amaratunge [facility] IRON, TIBC, % SAT. 2022-07-24 04:13:00 Leila Costello [facility] (WITHOUT FERRITIN) Medical Cente r FERRITIN 2022-07-24 04:13:00 Leila Costello [facility] VITAMIN B12 2022-07-24 04:13:00 Pravin Leilaceline Obrien [facility] CREATINE KINASE (CK) 2022-07-24 04:13:00 P[facility]in [facility] TSH/FREE T4 IF INDICATED 2022-07-24 04:13:00 Leila Costello [facility] CBC W/PLT COUNT & AUTO 2022-07-24 04:13:00 [facility] POCT-GLUCOSE METER 2022-07-23 20:38:00 Stephen Stokes [facility] SODIUM, RANDOM URINE 2022-07-23 17:56:00 Pravin [facility] OSMOLALITY, URINE 2022-07-23 17:56:00 Pravin [facility] CHLORIDE, RANDOM URINE 2022-07-23 17:56:00 [facility] OSMOLALITY, SERUM 2022-07-23 17:48:00 Pravin [facility] CT ABDOMEN/PELVIS WITH IV 2022-07-23 16:54:00 Charly Espinoza [facility] POCT-GLUCOSE METER 2022-07-23 16:53:00 Stephen Stokes [facility] POCT-GLUCOSE METER 2022-07-23 11:37:00 Stephen Stokes [facility] POCT-GLUCOSE METER 2022-07-23 08:08:00 Stephen Stokes [facility] XR CHEST 1 VIEW PORTABLE 2022-07-23 07:22:00 Tammie Harrington [facility] BASIC METABOLIC PANEL 2022-07-23 05:38:00 Helena Mukherjee [facility] MAGNESIUM 2022-07-23 05:38:00 Sotero Mora [facility] PHOSPHORUS 2022-07-23 05:38:00 Sotero Mora [facility] CBC W/PLT COUNT & AUTO 2022-07-23 05:38:00 [facility] CBC W/PLT COUNT & AUTO 2022-07-23 05:38:00 [facility] POCT-GLUCOSE METER 2022-07-22 20:56:00 Stephen Stokes [facility] POCT-GLUCOSE METER 2022-07-22 16:30:00 Stephen Stokes [facility] POCT-GLUCOSE METER 2022-07-22 11:25:00 Stephen Stokes [facility] POCT-GLUCOSE METER 2022-07-22 07:16:00 [facility] XR CHEST 1 VIEW PORTABLE 2022-07-22 07:03:00 Tammie Harrington [facility] BASIC METABOLIC PANEL 2022-07-22 05:15:00 [facility] MAGNESIUM 2022-07-22 05:15:00 Sotero Mora [facility] PHOSPHORUS 2022-07-22 05:15:00 Sotero Mora [facility] CBC W/PLT COUNT & AUTO 2022-07-22 05:15:00 Lonny [facility] CBC W/PLT COUNT & AUTO 2022-07-22 05:15:00 [facility] POCT-GLUCOSE METER 2022-07-21 22:39:00 Stephen Stokes [facility] POCT-GLUCOSE METER 2022-07-21 17:29:00 [facility] XR ABDOMEN/KUB 1 VIEW 2022-07-21 13:18:00 Charly Espinoza [facility] POCT-GLUCOSE METER 2022-07-21 11:34:00 KikeStephen samuel [facility] POCT-GLUCOSE METER 2022-07-21 08:24:00 [facility] XR CHEST 1 VIEW PORTABLE 2022-07-21 06:45:00 Tammie Harrington [facility] BASIC METABOLIC PANEL 2022-07-21 04:23:00 Helena Mukherjee [facility] MAGNESIUM 2022-07-21 04:23:00 Sotero Mora [facility] PHOSPHORUS 2022-07-21 04:23:00 Sotero Mora [facility] CBC W/PLT COUNT & AUTO 2022-07-21 04:23:00 Lonny [facility] DIFFERENTIAL [facility] CBC W/PLT COUNT & AUTO 2022-07-21 04:23:00 Lonny [facility] DIFFERENTIAL [facility] POCT-GLUCOSE METER 2022-07-20 21:02:00 [facility] Stephen [facility] SARS-COV2/RT-PCR ([facility] & 2022-07-20 16:39:00 Sotero Mora [facility] REF LABS) [facility] POCT-GLUCOSE METER 2022-07-20 16:06:00 [facility] X[facility] CHEST 1 VIEW PORTABLE 2022-07-20 14:53:00 Cherri Joyce [facility] US THORACENTESIS 2022-07-20 14:39:[address] [facility] POCT-GLUCOSE METER 2022-07-20 12:03:00 [facility] XR ABDOMEN/KUB 1 VIEW 2022-07-20 10:36:00 Charly Espinoza [facility] PT/APTT 2022-07-20 09:05:00 [facility] PROTHROMBIN TIME/INR 2022-07-20 09:05:00 [facility] Clinic[facility] POCT-GLUCOSE METER 2022-07-20 07:39:00 [facility] XR CHEST 1 VIEW PORTABLE 2022-07-20 06:41:00 Tammie Harrington Ray [facility] BASIC METABOLIC PANEL 2022-07-20 04:42:00 [facility] MAGNESIUM 2022-07-20 04:42:00 Sotero Mora [facility] PHOSPHORUS 2022-07-20 04:42:00 Sotero Mora [facility] CBC W/PLT COUNT & AUTO 2022-07-20 04:42:00 Lonny [facility] CBC W/PLT COUNT & AUTO 2022-07-20 04:42:00 Lonny [facility] POCT-GLUCOSE METER 2022-07-19 20:29:00 [facility] POCT-GLUCOSE METER 2022-07-19 16:03:00 [facility] 2D ECHO W/ DOPPLER 2022-07-19 13:17:24 Uziel Martinez [facility] (CW/PW/COLOR) [facility] POCT-GLUCOSE METER 2022-07-19 11:23:00 [facility] POCT-GLUCOSE METER 2022-07-19 07:43:00 [facility] XR CHEST 1 VIEW PORTABLE 2022-07-19 06:41:00 Tammie Harrington [facility] OXYGEN SATURATION, 2022-07-19 04:15:00 Tammie Harrington [facility] BASIC METABOLIC PANEL 2022-07-19 04:14:00 Lonny Kaiser [facility] MAGNESIUM 2022-07-19 04:14:00 Sotero Mora [facility] PHOSPHORUS 2022-07-19 04:14:00 Sotero Mora [facility] CBC W/PLT COUNT & AUTO 2022-07-19 04:14:00 Lonny [facility] CBC W/PLT COUNT & AUTO 2022-07-19 04:14:00 Lonny [facility] POCT-GLUCOSE METER 2022-07-18 20:40:00 Kike, Stephen [facility] POCT-GLUCOSE METER 2022-07-18 16:38:00 Stephen Stokes [facility] POCT-GLUCOSE METER 2022-07-18 11:34:00 Stephen Stokes [facility] CBC W/PLT COUNT & AUTO 2022-07-18 10:46:00 Lonny [facility] CBC W/PLT COUNT & AUTO 2022-07-18 10:46:00 Lonny [facility] XR CHEST 1 VIEW PORTABLE 2022-07-18 07:05:00 Jr Lenpittsburgheris Smith [facility] MAGNESIUM 2022-07-18 04:46:00 Sotero Mora [facility] RRL CRITICAL LABS 2022-07-18 04:46:00 [facility] (ABG,NA,K,H&H,GLUCOSE) Medical enter SODIUM NA-STAT LAB 2022-07-18 04:46:00 Jr Lnepittsburgheris [facility] POTASSIUM-STAT LAB 2022-07-18 04:46:00 Len [facility] GLUCOSE-STAT LAB 2022-07-18 04:46:00 Jr Lenpittsburgheris Smith [facility] HGB/HCT (H&H) - STAT LAB 2022-07-18 04:46:00 Jr Lenpittsburgheris [facility] BASIC METABOLIC PANEL 2022-07-18 04:46:00 [facility] PHOSPHORUS 2022-07-18 04:46:00 Sotero Mora [facility] OXYGEN SATURATION, 2022-07-18 04:46:00 Jr Lenpittsburgheris Smith [facility] ECG 12-LEAD 2022-07-18 00:37:13 Sheba Ramirez [facility] ECG 12-LEAD 2022-07-18 00:37:13 Unknown, Hl7 [facility] ECG 12-LEAD 2022-07-18 00:37:13 Unknown, Hl7 [facility] ECG 12-LEAD 2022-07-18 00:35:37 Unknown, Hl7 [facility] ECG 12-LEAD 2022-07-18 00:35:37 Unknown, Hl7 [facility] ECG 12-LEAD 2022-07-18 00:35:37 Unknown, 7 [facility] XR CHEST 1 VIEW PORTABLE 2022-07-17 14:38:[address] [facility] POCT-GLUCOSE METER 2022-07-17 11:56:00 [facility] POCT-GLUCOSE METER 2022-07-17 07:35:00 [facility] POCT-GLUCOSE METER 2022-07-16 22:28:00 [facility] POCT-GLUCOSE METER 2022-07-16 15:58:00 [facility] POCT-GLUCOSE METER 2022-07-16 11:36:00 [facility] POCT-GLUCOSE METER 2022-07-16 07:08:00 [facility] XR CHEST 1 VIEW PORTABLE 2022-07-16 03:19:00 Kristian Joseph CH, I [facility] POCT-GLUCOSE METER 2022-07-15 23:11:00 [facility] POCT-GLUCOSE METER 2022-07-15 16:29:00 [facility] XR CHEST 1 VIEW PORTABLE 2022-07-15 14:20:[address] [facility] POCT-GLUCOSE METER 2022-07-15 08:08:00 [facility] POCT-GLUCOSE METER 2022-07-15 06:21:00 [facility] POCT-GLUCOSE METER 2022-07-14 15:18:00 [facility] XR CHEST 1 VIEW PORTABLE 2022-07-14 12:10:00 Letty Goodwin [facility] POCT-ACT 2022-07-14 10:31:00 [facility] POCT-ACT 2022-07-14 09:55:00 [facility] POCT-ACT 2022-07-14 09:37:00 [facility] POCT-ACT 2022-07-14 09:05:00 [facility] CABG, USING INTERNAL 2022-07-14 08:09:00 Stephen Stokes [facility] THORACIC ARTERY AND [facility] er SAPHENOUS VEIN GRAFT SURGICAL PROCUREMENT, 2022-07-14 08:09:[address] [facility] VEIN, ENDOSCOPIC [facility] ABORH, MANUAL 2022-07-14 07:08:00 Perla Beard [facility] POCT-GLUCOSE METER 2022-07-14 06:02:00 [facility] UROLOGY REPORT - SCAN 2022-07-14 00:00:00 Provider, Calli [facility] PERMANENT LAB REPORT - 2022-07-14 00:00:00 Provider, Default [facility] PERIOPERATIVE ECO REPORT 2022-07-14 00:00:00 Provider, Calli Santos [facility] EKG-SCANNED 2022-07-14 00:00:00 Provider, Calli [facility] XR CHEST 2 VIEWS 2022-06-25 10:46:[address] [facility] BASIC METABOLIC PANEL 2022-06-25 10:08:00 Stephen Stokes [facility] CBC W/PLT COUNT & AUTO 2022-06-25 10:08:00 Stephen Stokes [facility] DIFFERENTIAL [facility] HEMOGLOBIN A1C 2022-06-25 10:08:00 Stephen Stokes [facility] LIPID PANEL 2022-06-25 10:08:00 Stephen Stokes [facility] PROTHROMBIN TIME/INR 2022-06-25 10:08:00 Stephen Stokes [facility] TYPE AND SCREEN, 2022-06-25 10:08:00 Stephen Stokes CHIk es AUTOMATED [facility] CBC W/PLT COUNT & AUTO 2022-06-25 10:08:00 Stephen Stokes [facility] DIFFERENTIAL [facility] COVID ANTIGEN 2022-06-25 10:01:00 Stephen Stokes [facility] ECG 12-LEAD 2022-06-25 09:29:49 Stephen Stokes [facility] ECG 12-LEAD 2022-06-25 09:29:49 Unknown, Hl7 Doctor [facility] ECG 12-LEAD 2022-06-25 09:29:49 Unknown, Hl7 [facility] Plan of Care Planned Activity Planned Date Details Comments Source Future Scheduled 2023-06-[address] [facility] 00:00:00 [facility]ing [facility] Medical Cente r Screening (12+) [code = Tobacco Cessation Counseling and Screening (12+)] Future Scheduled 2023-06-[address] [...] RISK Medical C enter SCREENING] Future Scheduled 2022-09-[address] [facility] 00:00:00 (12+) [code = Medical Center DEPRESSION SCREENING (12+)] Future Scheduled 2022-09-27 FALLS RISK SCREENING [facility] 00:00:00 [code = FALLS RISK Medical C enter SCREENING] Future Scheduled 2022-06-[address] [facility] 00:00:00 measurement [facility] (procedure) [code = 21826414] Future Scheduled 2022-06-[address] [facility] 00:00:00 [facility] (procedure) [code = 12940601] Future Scheduled 2022-05-28 INFLUENZA VACCINE (#1) [facility] 00:[facility]:00 [code = INFLUENZA Medical Ce nter VACCINE (#1)] Future Scheduled 2022-05-28 INFLUENZA VACCINE (#1) [facility] 00:00:00 [code = INFLUENZA Medical Ce nter VACCINE (#1)] Future Scheduled 2022-02-03 COVID-19 VACCINE (3 - [facility] 00[facility]00[facility]00 [facility] series) [code = COVID-19 VACCINE (3 - Booster for [facility] series)] Future Scheduled 2021-12-01 COVID-19 VACCINE (3 - [facility] 00:00:00 [facility] series) [code = COVID-19 VACCINE (3 - Booster for [facility] series)] Future Scheduled 2006-12-[address] [facility] 00:00:00 WELLNESS (YEAR 2 or Medical Center FIRST YEAR if no IPPE) [code = MEDICARE ANNUAL WELLNESS (YEAR 2 or FIRST YEAR if no IPPE)] Future Scheduled 2006-12-[address] [facility] 00:00:00 WELLNESS (YEAR 2 or Medical Center FIRST YEAR if no IPPE) [code = MEDICARE ANNUAL WELLNESS (YEAR 2 or FIRST YEAR if no IPPE)] Future Scheduled 1991 SHINGLES VACCINES ([address] [facility] 00:00:00 of 2) [code = SHINGLES Medic al Center VACCINES (1 of 2)] Future Scheduled 1991 SHINGLES VACCINES ([address] [facility] 00:00:00 of 2) [code = SHINGLES Medic al Center VACCINES (1 of 2)] Future Scheduled 1960-01-09 DTAP/TDAP/TD VACCINES [facility] 00:00:00 (1 - Tdap) [code = Medical C enter DTAP/TDAP/TD VACCINES (1 - Tdap)] Future Scheduled 1960-01-09 DTAP/TDAP/TD VACCINES [facility] 00:00:00 (1 - Tdap) [code = Medical C enter DTAP/TDAP/TD VACCINES (1 - Tdap)] Future Scheduled 1951 DIABETIC EYE EXAM [facility] 00:00:00 [code = DIABETIC EYE Medical Center EXAM] Future Scheduled [address] [facility] 00:00:00 examination Medical Center (regime/therapy) [code = 578416921] Future Scheduled 1951 Urine screening for [facility] 00:00:00 protein (procedure) Medical Center [code = 390872558] Future Scheduled 1951 DIABETIC EYE EXAM [facility] 00:00:00 [code = DIABETIC EYE Medical Center EXAM] Future Scheduled [address] [facility] 00:00:00 examination Medical Center (regime/therapy) [code = 298439046] Future Scheduled 1951 Urine screening for [facility] 00:00:00 protein (procedure) Medical Center [code = 487900646] Future Scheduled 1947 PNEUMOCOCCAL 65+ YRS [facility] 00:00:00 (1 - PCV) [code = Medical Ce nter PNEUMOCOCCAL 65+ YRS (1 - PCV)] Future Scheduled 1947 PNEUMOCOCCAL 65+ YRS [facility] 00:00:00 (1 - PCV) [code = Medical Ce nter PNEUMOCOCCAL 65+ YRS (1 - PCV)] Future Scheduled 1941 DXA SCAN [code = DXA [facility] 00:00:00 SCAN] Medical Center Future Scheduled 1941 DXA SCAN [code = DXA [facility] 00:00:00 SCAN] [facility] Encounters Start End Encounter Admission Attending Care Care Encounter Source Date/Time Date/Time Type Type Clinicians Facility Department ID 2022-06-17 Inpatient HOLLY STOKES Surgery [id number] [facility] 12:20:14 STEPHEN 2021-10-22 Outpatient Crespo, [facility] [id number] Common 12:13:51 Terell [id number] [facility] 2021-10-22 Outpatient Crespo, [facility] [id number] Common 11:29:56 Terell [id number] [facility] 2021-10-22 Outpatient Crespo, [facility] [id number] Common 11:09:26 Terell [id number] [facility] 2022-09-22 2022-09-[address] [facility] [id number] 10:00:00 10:30:00 Visit [facility] 2022-09-22 2022-09-22 Office Kike [facility] [id number] 10:00:00 10:30:00 Visit [facility] 2022-09-22 2022-09-22 Outpatient CARMEN [facility]OKES [facility] [id number] [facility] 10:10:33 10:10:33 STEPHEN 2022-09-18 2022-09-18 [facility] [id number] 00:00:00 00:00:00 [facility] 2022-09-18 2022-09-18 Telephone Lucio, [facility] [id number] 00:00:00 00:00:00 [facility] 2022-07-14 2022-08-14 [facility] [id number] 11:50:00 16:35:00 Encounter Indira Ornelas [address], [facility] Ryan Ali [facility], Charly Perry, Fred Kwon, [place] 2022-07-14 2022-08-14 [facility] [id number] 11:50:00 16:35:00 Encounter Indira Ornelased [address] [place] [address], [facility] Ryan Ali [facility], Charly Perry, Fred Kwon, [place] 2022-07-14 2022-08-14 Inpatient CARMEN ESPINOZA [facility] Surgery [id number] SLE 11:50:00 16:35:00 CHARLY Elizalde 2022-07-18 2022-07-18 Outpatient [facility] [id number] [facility] 00:00:00 23:59:00 Jun 2022-07-14 2022-07-14 Surgery [facility] [id number] 08:00:00 12:30:00 [facility] 2022-07-142022-07-14 Surgery Kike [facility] [id number] 08:00:00 12:30:00 [facility] 2022-06-25 2022-06-25 [facility] [id number] 10:27:57 23:59:00 Encounter [facility] 2022-06-25 2022-06-25 [facility] [id number] 10:27:57 23:59:00 Encounter [facility] 2022-06-25 2022-06-25 Outpatient HOLLY GARNER SLE [id number] SLE 10:27:57 23:59:00 STEPHEN 2022-06-25 2022-06-25 Office Stephen Stokes [facility] [id number] 09:30:00 09:45:00 Visit [facility] 2022-06-25 2022-06-25 Office EL Stephen Stokes [facility] [id number] 09:30:00 09:45:00 Visit [facility] 2022-06-25 2022-06-25 Outpatient CARMEN [facility] [id number] [facility] 09:26:11 09:26:11 2022-06-25 2022-06-25 Orders [facility] [id number] 00:00:00 00:00:00 [facility] 2022-06-25 2022-06-25 Orders [facility] [id number] 00:00:00 00:00:00 [facility] 2022-06-24 2022-06-24 Outpatient EL SLEH SLEH [id number] [facility] 10:27:10 23:59:00 2022-06-24 2022-06-24 [facility] [id number] 10:00:00 23:59:00 [facility] 2022-06-24 2022-06-24 [facility] [id number] 10:00:00 23:59:00 Encounter [facility] 2022-06-24 2022-06-24 Travel [facility] [id number] [facility] 00:00:00 00:00:00 [facility] 2022-06-24 2022-06-24 Travel [facility] [id number] [facility] 00:[facility]:00 00:00:00 [facility] 2022-06-09 2022-06-09 Office Kike [facility] [id number] 10:00:00 10:30:00 Visit [facility] 2022-06-09 2022-06-09 Office Kike [facility] [id number] 10:00:00 10:30:00 Visit [facility] 2022-06-09 2022-06-09 Outpatient KIKE [facility] SLE [id number] [facility] 09:48:05 09:48:05 STEPHEN 2020-09-11 2020-09-11 (TELEAUD) [facility] [id number] Common 00:00:00 00:00:00 AUDIO [facility] TELEMEDICI - [facility] 2020-09-09 2020-09-09 (TEL) ST[facility] ST[facility] [id number] Co mmon 00:00:00 00:00:00 [facility] 2020-09-09 2020-09-09 (TEL) [facility] [id number] Co mmon 00:00:00 00:00:00 [facility] 2020-05-30 2020-05-30 [facility] [id number] Common 15:20:00 15:20:[address] [facility] 2020-04-09 2020-04-09 Out[facility] [id number] Common 11:30:00 11:30:[address] [place] [address] [facility] 2020-03-27 2020-03-27 Outpatient [facility] [id number] Common 11:06:00 11:06:[address] [place] [address] [facility] 2020-02-21 2020-02-21 [facility] [id number] Common 14:00:00 14:00:[address] [facility] 2020-02-21 2020-02-21 [facility] [id number] Common 14:00:00 14:00:[address] [facility] 2020-02-16 2020-02-16 [facility] 30 [id number] Common 14:05:00 14:05:[address] [facility] 2019-12-04 2019-12-04 [facility] 29 [id number] Common 15:27:00 15:27:[address] [facility] 2019-11-21 2019-11-21 [facility] 29 [id number] Common 14:45:00 14:45:[address] [facility] 2019-11-08 2019-11-08 [facility] 29 [id number] Common 16:47:00 16:47:[address] [facility] 2019-11-03 2019-11-03 [facility] 29 [id number] Common 14:29:00 14:29:[address] [facility] 2019-06-15 2019-06-15 [facility] 26 [id number] Common 14:45:00 14:45:[address] [facility] 2019-03-16 2019-03-16 [facility] 24 [id number] Common 14:00:00 14:00:[address] [facility] 2019-01-19 2019-01-19 [facility] 24 [id number] Common 14:45:00 14:45:[address] [facility] 2018-12-14 2018-12-14 [facility] 24 [id number] Common 14:14:00 14:14:[address] [facility] 2018-12-14 2018-12-14 [facility] 23 [id number] Common 14:00:00 14:00:[address] [facility] 2018-11-07 2018-11-07 [facility] 24 [id number] Common 13:32:00 13:32:[address] [facility] 2018-09-15 2018-09-15 [facility] 22 [id number] Common 14:00:00 14:00:[address] [facility] Results Test Description Test Time Test Comments Results Result [facility] e Comments RAD, CHEST, 1 2022-11-28 VIEW, NON DEPT 15:10:00 [facility] NOR[facility] : 1940 Sex: F FINAL REPORT RAD, CHEST, 1 VIEW, NON DEPT INDICATION: Chest pain COMPARISON: Prior day's exam Miriam [id number] TECHNIQUE: Portable frontal view of the chest. FINDINGS: Support Lines and Devices: Interval extubation and removal of the enteric tube. Otherwise, the life support lines and tubes appear unchanged. Lungs and pleura: Unchanged airspace and pleural opacities. Small left upper pneumothorax. Heart and mediastinum: Stable contours. Stable surgical changes. Additional findings: None. IMPRESSION: 1.Small left upper pneumothorax with left-sided chest tube present in the inferior thorax2.Interval extubation and removal of the enteric tube. Signed: Javi Hutson MDReport Verified Date/Time: 11/28/2022 15:10:44 Reading Location: [address] Reading Room , CHEST, 1 2022-10-02 downtime order VIEW, NON DEPT 07:11:00 for 07/14 ACCESSION [facility][id number] GREEN : 1940 Sex: F FINAL REPORT INDICATION: Cardiac surgery COMPARISON: None TECHNIQUE: Single frontal view of the chest. Myers [id number]/ 1940 FINDINGS: Lines, tubes, and devices: The endotracheal tube tip overlies the trachea. The nasogastric tube tip overlies the stomach. A mediastinal drain and left-sided chest tube are seen. The right internal jugular vein central venous catheter tip overlies the superior vena cava. The right IJ [place] catheter tip overlies the right main pulmonary artery.Lungs and pleura: Scattered linear atelectasis is present. No effusion.Heart and mediastinum: Postoperative changes from median sternotomy Osseous structures: No acute abnormality.Other: None. IMPRESSION: Expected postoperative changes from recent median sternotomy The life support lines and tubes project in good position. Signed by: Javi Hutson on 07/14/2022 2:24 PM Signed: Blaine Gregory MDReport Verified Date/Time: 10/02/2022 07:11:23 -Glucose meter 2022-08-14 12:35:29 Test Item Value Reference Range Interpretation Comme [facility] POC-Glucose Meter (test code = 105 mg/dL 70-110 : TESTED AT [facility] [address] [facility] [address], [facility] 30: Beach Attendant/Techni wendi ID = [id number] for Al Mallory a Lab Interpretation (test code = Normal 62467-4) [facility] [id number] 12:35:29 Test Item Value Reference Range Interpretation Comments POC-Glucose Meter (test 105 mg/dL 70-110 : TE STED AT [facility] code = 1538) [address] [place] [address], 770 30: Beach Attendant/Techni wendi ID = [id number] for Al Mallory a Lab Interpretation (test Normal code = 63867-6) [facility]-GLUCOSE [id number] 12:35:29 Test Item Value Reference Range Interpretation Comments POC-GLUCOSE METER 105 mg/dL 70-110 : TESTED A T [facility] 6720 (BEAKER) (test code = [facility], [facility]8) [address]: Beach Attendant/Techni wendi ID = [id number] for Ba rrera, Meri POCT-GLUCOSE [id number] 08:21:55 Test Item Value Reference Range Interpretation Comments POC-GLUCOSE METER 105 mg/dL 70-110 : TESTED A T [facility] 6720 (BEAKER) (test code = [facility], [facility]8) 88954: Beach Attendant/Techni wendi ID = [id number] for Ba rrera, Meri POCT-GLUCOSE [id number] 06:55:57 Test Item Value Reference Range Interpretation Comments POC-GLUCOSE METER 109 mg/dL 70-110 : TESTED A T [facility] 6720 (BEAKER) (test code = [facility], [facility]8) 74974: Beach Attendant/Techni wendi ID = [id number] for SHEKHAR GLASS [id number] 04:20:23 Test Item Value Reference Range Interpretation Comments PHOSPHORUS (BEAKER) 3.6 mg/dL 2.3-4.7 Specimen slightly (test code = 604) hemolyzed Beach Attendant ID - YAHAIRA GBASIC METABOLIC [id number] 04:20:23 Test Item Value Reference Range Interpretation [...] not appl icable for dialysis patien ts Beach Attendant ID - YAHAIRA [id number] 04:20:22 Test Item Value Reference Range Interpretation Comments MAGNESIUM (BEAKER) 1.9 mg/dL 1.6-2.6 Specimen slightly (test code = 627) hemolyzed Beach Attendant ID - YAHAIRA GCBC W/PLT COUNT & AUTO [id number] 03:57:40 Test Item Value Reference Range Interpretation [...] PERCENT (BEAKER) (test code = 2801) POCT-GLUCOSE [id number] 17:09:19 Test Item Value Reference Range Interpretation Comments POC-GLUCOSE METER 114 mg/dL 70-110 H : TESTED A T [facility] 6720 (BEAKER) (test code [facility], = 1538) [address]: Beach Attendant/Techni wendi ID = [id number] for Salyl Lenz SARS-CoV2/RT-PCR (Asymptomatic ONLY)2022-08-13 15:14:31 Test Item Value Reference Interpretation Comments Range SARS-COV2/RT-PCR Negative Negative The SARS-Co V-2 (test code = target nucleic 43526-5) acids are not detected in thi s [...] revoked sooner. Fact Sheet for Healthcare Providers: https://www.Orteq/Documents/Xp ert%20Xpress%20SAR S%20CoV-2/Fact%20S heets/302-3802%20S ARS-COV-2%20HEALTH CARE%20PROVIDERS%2 0FACT%20SHEET.pdf Fact Sheet for Healthcare Patients: https://www.Orteq/Documents/Xp ert%20Xpress%20SAR S%20CoV-2/Fact%20S heets/302-3801%20S ARS-COV-2%20PATIEN T%20FACT%20SHEET.p df Lab Interpretation Normal (test code = 08074-5) [facility]2022-08-13 15:14:31 Test Item Value Reference Interpretation Comments Range SARS-COV2/RT-PCR Negative Negative The SARS-Co V-2 (test code = target nucleic 70535-4) acids are not detected in thi s [...] revoked sooner. Fact Sheet for Healthcare Providers: https://www.Orteq/Documents/Xp ert%20Xpress%20SAR S%20CoV-2/Fact%20S heets/302-3802%20S ARS-COV-2%20HEALTH CARE%20PROVIDERS%2 0FACT%20SHEET.pdf Fact Sheet for Healthcare Patients: https://www.Orteq/Documents/Xp ert%20Xpress%20SAR S%20CoV-2/Fact%20S heets/302-3801%20S ARS-COV-2%20PATIEN T%20FACT%20SHEET.p df Lab Interpretation Normal (test code = 31628-7) [facility] ([facility])2022-08-13 15:14:31 Test Item Value Reference Range Interpretation Comments SARS-COV2/RT-PCR Negative Negative The SARS-Co V-2 target (test code = nucleic acids a re not 3691861) detected in thi s specimen. Negative result [...] individuals suspected of CO VID-[address] provider. This test has been authorized [...] revoked sooner. Fact Sheet for Healthcare Providers: https://www.T-System.Micello m/Documents/Xpert%20Xpress%20SARS%20CoV-2/Fact%20Sheets/3023802%73VWVI-OVA-1%20 HEALTHCARE%20PROVIDERS%20FACT%20SHEET.pdf Fact Sheet for Healthcare Patients: https://www.Elton Digital/Documents/Xpert%20Xp ress%20SARS%20CoV-2/Fact%20Sheets/3023801%54ZIAL-OGI-7%20PATIENT%20FACT%20SHEET .pdfRAD, CHEST, 1 VIEW, NON [id number] 15:14:00Reason for exam:- >shortness of breathShould this be performed at the bedside?->Yes [facility] 1940 Sex: FFINAL REPORT RAD, CHEST, 1 VIEW, NON DEPT INDICATION: shortness of breath COMPARISON: Prior day's exam FINDINGS: Portable frontal view of the chest. IMPRESSION: Support Lines: Sternotomy wires. Loop recorder. Lungs and pleura: Moderate left joint effusion. No significant pneumothorax. Heart and mediastinum: Stable contours. Stable surgical changes. Additional findings: None. Signed:Tiera Borrero Verified Date/Time: 08/13/2022 15:14:31 Reading Location: [address] Reading Room POCT-GLUCOSE [id number] 12:46:32 Test Item Value Reference Range Interpretation Comments POC-GLUCOSE METER 124 mg/dL 70-110 H : TESTED A T [facility] 6720 (BEAKER) (test code = [facility], 1538) [address]: Beach Attendant/Techni wendi ID = [id number] for Co rtez, [place] POCT-GLUCOSE [id number] 08:27:51 Test Item Value Reference Range Interpretation Comments POC-GLUCOSE METER 123 mg/dL 70-110 H : TESTED A T [facility] 6720 (BEAKER) (test code = [facility], 1538) 50923: Beach Attendant/Techni wendi ID = [id number] for Co rtez, Liliana [id number] 06:16:44 Test Item Value Reference Range Interpretation Comments PHOSPHORUS (BEAKER) 2.9 mg/dL 2.3-4.7 Specimen slightly (test code = 604) hemolyzed Beach Attendant ID - SANTI MBASIC METABOLIC [id number] 06:16:44 Test Item Value Reference Range Interpretation [...] not appl icable for dialysis patien ts Beach Attendant ID - SANTI [id number] 06:16:43 Test Item Value Reference Range Interpretation Comments MAGNESIUM (BEAKER) 1.9 mg/dL 1.6-2.6 Specimen slightly (test code = 627) hemolyzed Beach Attendant ID - SANTI MCBC W/PLT COUNT & AUTO [id number] 05:20:10 Test Item Value Reference Range Interpretation [...] PERCENT (BEAKER) (test code = 2801) POCT-GLUCOSE [id number] 21:18:55 Test Item Value Reference Range Interpretation Comments POC-GLUCOSE METER 129 mg/dL 70-110 H : TESTED A T [facility] 6720 (BEAKER) (test code = [facility], 1538) [address]: Beach Attendant/Techni wendi ID = [id number] for Br istol, Nykia POCT-GLUCOSE [id number] 17:52:55 Test Item Value Reference Range Interpretation Comments POC-GLUCOSE METER 109 mg/dL 70-110 : TESTED A T [facility] 6720 (BEAKER) (test code = [facility], 1538) [address]: Beach Attendant/Techni wendi ID = [id number] for Markel CARSON POCT-GLUCOSE [id number] 12:50:12 Test Item Value Reference Range Interpretation Comments POC-GLUCOSE METER 116 mg/dL 70-110 H : TESTED A T [facility] 6720 (BEAKER) (test code = [facility], 1538) 21225: Beach Attendant/Techni wendi ID = [id number] for Markel CARSON RAD, CHEST, 1 VIEW, NON [id number] 09:11:00Reason for exam:- >atelectasisShould this be performed at the bedside?->Yes [facility] : 1940 Sex: FFINAL REPORT RAD, CHEST, 1 VIEW, NON DEPT INDICATION: atelectasis COMPARISON: Prior day's exam FINDINGS: Portable frontal view of the chest. IMPRESSION: Support Lines: Overlying leads/monitors. Loop recorder. Atrial clip. Lungs and pleura: Retrocardiac opacity representing singly or in combination airspace disease, atelectasis and/or effusion. No significant pneumothorax. Heart and mediastinum: Stable contours. Stable surgical changes. Additional findings: None. Signed: Tiera Borrero Verified Date/Time: 08/12/2022 09:11:12 Reading Location: [address] Reading Room POCT-GLUCOSE METER 2022-08-12 08:23:44 Test Item Value Reference Range Interpretation Comments POC-GLUCOSE METER 106 mg/dL 70-110 : TESTED A T [facility] [address] (BEAKER) (test code = [facility] [place], 1538) [address]: Beach Attendant/Techni wendi ID = [id number] for Markel CARSON [id number] 06:10:38 Test Item Value Reference Range Interpretation Comments PHOSPHORUS (BEAKER) (test code = 2.8 mg/dL 2.3-4.7 604) Beach Attendant ID - SANTI MBASIC METABOLIC [id number] 06:10:37 Test Item Value Reference Range Interpretation [...] (test code = 697) EGFR (BEAKER) 49 Interpretatio n of eGFR (test code = [...] not appl icable for dialysis patien ts Beach Attendant ID - SANTI [id number] 06:10:37 Test Item Value Reference Range Interpretation Comments MAGNESIUM (BEAKER) (test code = 1.9 mg/dL 1.6-2.6 627) Beach Attendant ID - SANTI MCBC W/PLT COUNT & AUTO [id number] 05:24:26 Test Item Value Reference Range Interpretation [...] PERCENT (BEAKER) (test code = 2801) POCT-GLUCOSE [id number] 20:49:08 Test Item Value Reference Range Interpretation Comments POC-GLUCOSE METER 145 mg/dL 70-110 H : TESTED A T [facility] 6720 (BEAKER) (test code = [facility], 1538) 52550: Beach Attendant/Techni wendi ID = [id number] for RO CARLITOS, MAURISIO POCT-GLUCOSE [id number] 17:25:01 Test Item Value Reference Range Interpretation Comments POC-GLUCOSE METER 99 mg/dL 70-110 : TESTED A T [facility] 6720 (BEAKER) (test code = [facility], 1538) 66048: Beach Attendant/Techni wendi ID = [id number] for David ez, [place] POCT-GLUCOSE [id number] 12:43:21 Test Item Value Reference Range Interpretation Comments POC-GLUCOSE METER 124 mg/dL 70-110 H : TESTED A T [facility] 6720 (BEAKER) (test code = [facility], 1538) 90309: Beach Attendant/Techni wendi ID = [id number] for Co rtez, [place] POCT-GLUCOSE [id number] 08:37:16 Test Item Value Reference Range Interpretation Comments POC-GLUCOSE METER 112 mg/dL 70-110 H : TESTED A T [facility] 6720 (BEAKER) (test code = [facility], 1538) 02685: Beach Attendant/Techni wendi ID = [id number] for Co rtez, [place] [id number] 05:39:40 Test Item Value Reference Range Interpretation Comments MAGNESIUM (BEAKER) (test code = 2.0 mg/dL 1.6-2.6 627) Beach Attendant ID - SANTI [id number] 05:39:40 Test Item Value Reference Range Interpretation Comments PHOSPHORUS (BEAKER) (test code = 3.8 mg/dL 2.3-4.7 604) Beach Attendant ID Kelly HANCOCK MBASIC METABOLIC [id number] 05:39:39 Test Item Value Reference Range Interpretation [...] not appl icable for dialysis patien ts Beach Attendant ID - SANTI MCBC W/PLT COUNT & AUTO [id number] 04:55:17 Test Item Value Reference Range Interpretation [...] PERCENT (BEAKER) (test code = 2801) POCT-GLUCOSE [id number] 20:42:35 Test Item Value Reference Range Interpretation Comments POC-GLUCOSE METER 128 mg/dL 70-110 H : TESTED Radha Finley [facility] 6720 (BEAKER) (test code = [facility], 1538) 94713: Beach Attendant/Techni wendi ID = [id number] for RO CARLITOS, MAURISIO POCT-GLUCOSE [id number] 18:44:36 Test Item Value Reference Range Interpretation Comments POC-GLUCOSE METER 108 mg/dL 70-110 : TESTED Radha Finley [facility] 6720 (JUAN F) (test code = [facility] [place], 1538) 85861: Beach Attendant/Techni wendi ID = [id number] for Co Liliana gibbs SARS-COV2/RT-PCR ([facility])2022-08-10 16:05:16 Test Item Value Reference Range Interpretation Comments SARS-COV2/RT-PCR Negative Negative The SARS-Co V-2 target (test code = nucleic acids a re not 2661360) detected in thi s specimen. Negative result [...] revoked sooner. Fact Sheet for Healthcare Providers: https://www.T-System.co m/Documents/Xpert%20Xpress%20SARS%20CoV-2/Fact%20Sheets/302-0712%24KTNB-CFZ-0%20 HEALTHCARE%20PROVIDERS%20FACT%20SHEET.pdf Fact Sheet for Healthcare Patients: https://www.Elton Digital/Documents/Xpert%20Xp ress%20SARS%20CoV-2/Fact%20Sheets/302-3801%43FECN-KOB-5%20PATIENT%20FACT%20SHEET .pdfBLOOD GAS, [id number] 14:28:39 Test Item Value Reference Range Interpretation [...] (BEAKER) 36.8 (test code = 1818) POCT-GLUCOSE [id number] 12:22:25 Test Item Value Reference Range Interpretation Comments POC-GLUCOSE METER 158 mg/dL 70-110 H : TESTED A T [facility] 6720 (BEAKER) (test code [facility], = 1538) 66349: Beach Attendant/Techni wendi ID = [id number] for Sally Lenz POCT-GLUCOSE [id number] 08:41:09 Test Item Value Reference Range Interpretation Comments POC-GLUCOSE METER 110 mg/dL 70-110 : TESTED A T [facility] 6720 (BEAKER) (test code [facility], = 1538) 67261: Beach Attendant/Techni wendi ID = [id number] for Sally Lenz BASIC METABOLIC [id number] 06:36:38 Test Item Value Reference Range Interpretation [...] not appl icable for dialysis patien ts Beach Attendant ID - SANTI [id number] 06:36:38 Test Item Value Reference Range Interpretation Comments MAGNESIUM (BEAKER) (test code = 1.9 mg/dL 1.6-2.6 627) Beach Attendant ID - SANTI [id number] 06:36:38 Test Item Value Reference Range Interpretation Comments PHOSPHORUS (BEAKER) (test code = 4.1 mg/dL 2.3-4.7 604) Beach Attendant ID - SANTI MCBC W/PLT COUNT & AUTO [id number] 06:04:40 Test Item Value Reference Range Interpretation [...] PERCENT (BEAKER) (test code = 2801) POCT-GLUCOSE [id number] 21:26:49 Test Item Value Reference Range Interpretation Comments POC-GLUCOSE METER 114 mg/dL 70-110 H : TESTED A T [facility] 6720 (BEAKER) (test code = [facility], 1538) 45312: Beach Attendant/Techni wendi ID = [id number] for ELKE FOWLER POCT-GLUCOSE [id number] 19:42:14 Test Item Value Reference Range Interpretation Comments POC-GLUCOSE METER 137 mg/dL 70-110 H : TESTED A T [facility] 6720 (BEAKER) (test code = [facility], 1538) 54544: Beach Attendant/Techni wendi ID = [id number] for Markel CARSON POCT-GLUCOSE [id number] 19:41:22 Test Item Value Reference Range Interpretation Comments POC-GLUCOSE METER 123 mg/dL 70-110 H : TESTED A T [facility] 6720 (BEAKER) (test code = [facility], 1538) 60098: Beach Attendant/Techni wendi ID = [id number] for Markel CARSON POCT-GLUCOSE [id number] 16:56:38 Test Item Value Reference Range Interpretation Comments POC-GLUCOSE METER 117 mg/dL 70-110 H : TESTED A T [facility] 6720 (BEAKER) (test code = [facility], 1538) 47882: Beach Attendant/Techni wendi ID = [id number] for Markel CARSON [id number] 07:18:09 Test Item Value Reference Range Interpretation Comments MAGNESIUM (BEAKER) (test code = 1.9 mg/dL 1.6-2.6 627) Beach Attendant ID Kelly MARTIN [id number] 07:18:09 Test Item Value Reference Range Interpretation Comments PHOSPHORUS (BEAKER) (test code = 2.9 mg/dL 2.3-4.7 604) Beach Attendant ID - MARIO LBASIC METABOLIC [id number] 07:18:08 Test Item Value Reference Range Interpretation [...] not appl icable for dialysis patien ts Beach Attendant ID - PIAYA LCBC W/PLT COUNT & AUTO [id number] 07:15:08 Test Item Value Reference Range Interpretation [...] PERCENT (BEAKER) (test code = 2801) POCT-GLUCOSE [id number] 07:01:15 Test Item Value Reference Range Interpretation Comments POC-GLUCOSE METER 133 mg/dL 70-110 H : TESTED A T [facility] 6720 (BEAKER) (test code = [facility], [facility]) 98515: Beach Attendant/Techni wendi ID = [id number] for JESSY-SHEBA, S HIKARA POCT-GLUCOSE [id number] 20:57:54 Test Item Value Reference Range Interpretation Comments POC-GLUCOSE METER 111 mg/dL 70-110 H : TESTED A T [facility] 6720 (BEAKER) (test code = [facility], [facility]) 45454: Beach Attendant/Techni wendi ID = [id number] for ELEK FOWLER POCT-GLUCOSE [id number] 17:31:55 Test Item Value Reference Range Interpretation Comments POC-GLUCOSE METER 112 mg/dL 70-110 H : TESTED A T [facility] 6720 (BEAKER) (test code = [facility], 1538) 16834: Beach Attendant/Techni wendi ID = [id number] for JESSY-SHEBA, S HIKARA POCT-GLUCOSE [id number] 13:30:31 Test Item Value Reference Range Interpretation Comments POC-GLUCOSE METER 132 mg/dL 70-110 H : TESTED A T [facility] 6720 (BEAKER) (test code = [facility], 1538) 82687: Beach Attendant/Techni wendi ID = [id number] for Markel CARSON [id number] 06:18:42 Test Item Value Reference Range Interpretation Comments PHOSPHORUS (BEAKER) (test code = 2.7 mg/dL 2.3-4.7 604) Beach Attendant ID - MARIO LBASIC METABOLIC [id number] 06:18:41 Test Item Value Reference Range Interpretation [...] not appl icable for dialysis patien ts Beach Attendant ID - MARIO [id number] 06:18:41 Test Item Value Reference Range Interpretation Comments MAGNESIUM (BEAKER) (test code = 1.9 mg/dL 1.6-2.6 627) Beach Attendant ID Kelly MARTIN LCBC W/PLT COUNT & AUTO [id number] 05:53:27 Test Item Value Reference Range Interpretation [...] PERCENT (BEAKER) (test code = 2801) POCT-GLUCOSE [id number] 17:36:12 Test Item Value Reference Range Interpretation Comments POC-GLUCOSE METER 123 mg/dL 70-110 H : TESTED A T [facility] 6720 (BEAKER) ([facility] = 1538) 02364: Beach Attendant/Techni wendi ID = [id number] for Sally Lenz POCT-GLUCOSE [id number] 13:03:50 Test Item Value Reference Range Interpretation Comments POC-GLUCOSE METER 136 mg/dL 70-110 H : TESTED A T [facility] 6720 (BEAKER) (test code = [facility], 1538) 48943: Beach Attendant/Techni wendi ID = [id number] for January Ace 2D Echo W/Doppler(CW/PW/Color)2022-08-07 11:20:48Ejection FractionSLEH ECHO [facility] [place] Echo W/Doppler(CW/PW/Color)2022-08-07 11:20:48Ejection FractionSLEH ECHO HEARTLAB [facility]KSaint [facility]bronPOCT-GLUCOSE [id number] 08:52:56 Test Item Value Reference Range Interpretation Comments POC-GLUCOSE METER 138 mg/dL 70-110 H : TESTED A T [facility] 6720 (BEAKER) (test code = [facility] Latisha [facility], 1538) 45144: Beach Attendant/Techni wendi ID = [id number] for NAINA HARMAN BASIC METABOLIC [id number] 05:03:05 Test Item Value Reference Range Interpretation [...] not appl icable for dialysis patien ts Beach Attendant ID - MARIO [id number] 05:03:05 Test Item Value Reference Range Interpretation Comments MAGNESIUM (BEAKER) (test code = 1.9 mg/dL 1.6-2.6 627) Beach Attendant ID - MARIO [id number] 05:03:05 Test Item Value Reference Range Interpretation Comments PHOSPHORUS (BEAKER) (test code = 3.1 mg/dL 2.3-4.7 604) Beach Attendant ID - MARIO LCBC W/PLT COUNT & AUTO [id number] 04:36:34 Test Item Value Reference Range Interpretation [...] PERCENT (BEAKER) (test code = 2801) POCT-GLUCOSE [id number] 21:16:08 Test Item Value Reference Range Interpretation Comments POC-GLUCOSE METER 133 mg/dL 70-110 H : TESTED A T [facility] 6720 (BEAKER) (test code = [place], 1538) [address]: Beach Attendant/Techni wendi ID = [id number] for MICHELLE MAZA TOMASZ RAD, CHEST, 1 VIEW, NON [id number] 17:27:00Reason for exam:->follow up pleural effusionShould this be performed at the bedside?->Yes [facility] 1940 Sex: FFINAL REPORT Chest, [...] T [facility] 6720 (BEAKER) (test code = [facility], 1538) [address]: Beach Attendant/Techni wendi ID = [id number] for Iv ey (contract), Sim one POCT-GLUCOSE [id number] 08:55:44 Test Item Value Reference Range Interpretation Comments POC-GLUCOSE METER 154 mg/dL 70-110 H : TESTED A T [facility] 6720 (BEAKER) (test code = [facility], 1538) 455[address]: Beach Attendant/Techni wendi ID = [id number] for Iv ey (contract), Sim one CBC W/PLT COUNT & AUTO [id number] 05:54:49 Test Item Value Reference Range Interpretation [...] 0.00-1.00 PERCENT (BEAKER) (test code = 2801) [id number] 05:51:45 Test Item Value Reference Range Interpretation Comments PHOSPHORUS (BEAKER) (test code = 3.0 mg/dL 2.3-4.7 604) Beach Attendant ID - SANTI MBASIC METABOLIC [id number] 05:51:44 Test Item Value Reference Range Interpretation [...] (test code = 697) EGFR (BEAKER) 57 Interpretati on of eGFR (test code = [...] not appl icable for dialysis patien ts Beach Attendant ID - SANTI [id number] 05:51:44 Test Item Value Reference Range Interpretation Comments MAGNESIUM (BEAKER) (test code = 2.1 mg/dL 1.6-2.6 627) Beach Attendant ID - SANTI MUrinalysis w/Microscopic + Reflex to [id number] 05:47:26 Test Item Value Reference Range Interpretation Comments Color, UA (test Light Yellow code = 5778-6) Clarity, UA (test Clear code = 5767-9) Specific [place], 1.014 1.001-1.035 UA (test code = 5811-5) pH, UA (test code 7.0 5.0-8.0 = 5803-2) Protein, UA (test Negative Negative code = 37720-9) Glucose, UA (test Negative Negative code = 365) Ketones, UA (test Negative Negative code = 2514-8) Bilirubin, UA Negative Negative (test code = 96114-4) Blood, UA (test Negative Negative code = 07205-6) Nitrite, UA (test Negative Negative code = 5802-4) Leukocytes, UA Negative Negative (test code = 5799-2) Urobilinogen, UA 0.2 0.2-1.0 (test code = 89246-5) RBC, UA (test 1 See_Comment [Automated me ssage] code = 73144-0) The system [employer] [place] generated this result transmit salvador reference range : /HPF. The refer ence range was not u sed to interpret th is result as normal/abnormal . WBC, UA (test 2 See_Comment [Automated me ssage] code = 5821-4) The system [facility] generated this result transmit salvador reference range : /HPF. The refer ence range was not u sed to interpret th is result as normal/abnormal . Bacteria, UA Rare (test code = 74265-2) Mucus (test code Rare = 8247-9) Squam Epithel, UA 2 See_Comment [Automate d message] (test code = The system [facility] 62092-0) generated this result transmit salvador reference range : /HPF. The refer ence range was not u sed to interpret th is result as normal/abnormal . Hyaline Casts, UA 9 See_Comment [Automate d message] (test code = The system [facility] 62360-3) generated this result transmit salvador reference range : /LPF. The refer ence range was not u sed to interpret th is result as normal/abnormal . Granular Casts, 2 See_Comment [Automated message] UA (test code = The system [employer] [place] 5793-5) generated this result transmit salvador reference range : /LPF. The refer ence range was not u sed to interpret th is result as normal/abnormal . Specimen Source (test code = 2795) JANEEN (test code = Beach Attendant ID - JANEEN) [auto]Beach Attendant ID - [facility]/Microscopic + Reflex to Culture 2022-08-06 05:47:26 Test Item Value Reference Range Interpretation Comments Color, UA (test Light Yellow code = 5778-6) Clarity, UA (test Clear code = 5767-9) Specific [place], 1.014 1.001-1.035 UA (test code = 5811-5) pH, UA (test code 7.0 5.0-8.0 = 5803-2) Protein, UA (test Negative Negative code = 07209-1) Glucose, UA (test Negative Negative code = 365) Ketones, UA (test Negative Negative code = 2514-8) Bilirubin, UA Negative Negative (test code = 08823-6) Blood, UA (test Negative Negative code = 77189-4) Nitrite, UA (test Negative Negative code = 5802-4) Leukocytes, UA Negative Negative (test code = 5799-2) Urobilinogen, UA 0.2 0.2-1.0 (test code = 64250-3) RBC, UA (test 1 See_Comment [Automated me ssage] code = 40858-1) The system [facility] generated this result transmit salvador reference range : /HPF. The refer ence range was not u sed to interpret th is result as normal/abnormal . WBC, UA (test 2 See_Comment [Automated me ssage] code = 5821-4) The system [facility] generated this result transmit salvador reference range : /HPF. The refer ence range was not u sed to interpret th is result as normal/abnormal . Bacteria, UA Rare (test code = 33576-3) Mucus (test code Rare = 8247-9) Squam Epithel, UA 2 See_Comment [Automate d message] (test code = The system [facility] 00323-0) generated this result transmit salvador reference range : /HPF. The refer ence range was not u sed to interpret th is result as normal/abnormal . Hyaline Casts, UA 9 See_Comment [Automate d message] (test code = The system [facility] 81849-8) generated this result transmit salvador reference range : /LPF. The refer ence range was not u sed to interpret th is result as normal/abnormal . Granular Casts, 2 See_Comment [Automated message] UA (test code = The system [facility] 5793-5) generated this result transmit salvador reference range : /LPF. The refer ence range was not u sed to interpret th is result as normal/abnormal . Specimen Source (test code = 2795) JANEEN (test code = Beach Attendant ID - JANEEN) [auto]Beach Attendant ID - tech [facility] [id number] 05:47:26 Test Item Value Reference Range Interpretation [...] = 515) SOURCE(BEAKER) (test code = 2795) Beach Attendant ID - [auto]Beach Attendant ID - techPOCT-GLUCOSE [id number] 22:43:27 Test Item Value Reference Range Interpretation Comments POC-GLUCOSE METER 164 mg/dL 70-110 H : [facility] ([facility] (test code = [place], 1538) [address]: Beach Attendant/Techni wendi ID = [id number] for FI THERESA CORTES BASIC METABOLIC [id number] 17:41:45 Test Item Value Reference Range Interpretation [...] not appl icable for dialysis patien ts Beach Attendant ID - [id number] 17:41:45 Test Item Value Reference Range Interpretation Comments MAGNESIUM (BEAKER) (test code = 2.3 mg/dL 1.6-2.6 627) Beach Attendant ID - BSPOCT-GLUCOSE [id number] 17:25:43 Test Item Value Reference Range Interpretation Comments POC-GLUCOSE METER 160 mg/dL 70-110 H : TESTED A T [facility] 6720 (BEAKER) (test code = [facility] [place], 1538) 17[address]: Beach Attendant/Techni wendi ID = [id number] for ELSY LEAL POCT-GLUCOSE [id number] 12:25:39 Test Item Value Reference Range Interpretation Comments POC-GLUCOSE METER 134 mg/dL 70-110 H : TESTED A T [facility] 6720 (BEAKER) (test code = [facility] [place], 1538) [address]: Beach Attendant/Techni wendi ID = [id number] for ELSY LEAL POCT-GLUCOSE [id number] 08:14:55 Test Item Value Reference Range Interpretation Comments POC-GLUCOSE METER 124 mg/dL 70-110 H : TESTED A T [facility] 6720 (BEAKER) (test code = [facility], 1538) 319[address]: Beach Attendant/Techni wendi ID = [id number] for ELSY LEAL BASIC METABOLIC [id number] 05:16:27 Test Item Value Reference Range Interpretation [...] not appl icable for dialysis patien ts Beach Attendant ID - SHEKHAR WB-TYPE NATRIURETIC FACTOR (BNP)2022-08-05 05:08:44 Test Item Value Reference Range Interpretation Comments B-TYPE NATRIURETIC PEPTIDE (BEAKER) 331 pg/mL 0-100 H (test code = 700) Beach Attendant ID - SANTI [id number] 05:05:13 Test Item Value Reference Range Interpretation Comments MAGNESIUM (BEAKER) (test code = 1.7 mg/dL 1.6-2.6 627) Beach Attendant ID - SHEKHAR [id number] 05:05:13 Test Item Value Reference Range Interpretation Comments PHOSPHORUS (BEAKER) (test code = 3.8 mg/dL 2.3-4.7 604) Beach Attendant ID - SHEKHAR WCBC W/PLT COUNT & AUTO [id number] 04:41:19 Test Item Value Reference Range Interpretation [...] PERCENT (BEAKER) (test code = 2801) POCT-GLUCOSE [id number] 20:56:56 Test Item Value Reference Range Interpretation Comments POC-GLUCOSE METER 152 mg/dL 70-110 H : TESTED A T [facility] 6720 (BEAKER) (test code = [facility], 1538) 97142: Beach Attendant/Techni wendi ID = [id number] for FI THERESA CORTES POCT-GLUCOSE [id number] 17:20:51 Test Item Value Reference Range Interpretation Comments POC-GLUCOSE METER 136 mg/dL 70-110 H : TESTED A T [facility] 6720 (BEAKER) (test code = [facility], 1538) 6[address]: Beach Attendant/Techni wendi ID = [id number] for OR NAINA CABELLO BASIC METABOLIC [id number] 13:15:42 Test Item Value Reference Range Interpretation [...] (test code = 697) EGFR (JUAN F) 58 Interpretati on of eGFR (test code = [...] not appl icable for dialysis patien ts Beach Attendant ID - PIAYA LPOCT-GLUCOSE [id number] 12:29:08 Test Item Value Reference Range Interpretation Comments POC-GLUCOSE METER 142 mg/dL 70-110 H : TESTED A T [facility] 6720 (JUAN F) (test code = [place] [place], 1538) [address]: Beach Attendant/Techni wendi ID = [id number] for OR DESTINEY NAINA CT, CHEST, WITHOUT [id number] 10:44:00Unlisted Reason for Exam - Click Yes and Enter Reason Below->No [facility]MM[facility] DONTAHEATHER GREEN : 1940 Sex: FFINAL REPORT CT Chest [...] represents an evolving hematoma. Signed: Norman Mccullough MDRv[facility] administration medical [facility] Verified Date/Time: 08/04/2022 10:44:39 POCT-GLUCOSE [id number] 07:36:43 Test Item Value Reference Range Interpretation Comments POC-GLUCOSE METER 154 mg/dL 70-110 H : TESTED A T [facility] 6720 (BEAKER) (test code = [facility], 1538) 100[address]: Beach Attendant/Techni wendi ID = [id number] for OR NAINA CABELLO [id number] 05:37:25 Test Item Value Reference Range Interpretation Comments MAGNESIUM (BEAKER) (test code = 1.7 mg/dL 1.6-2.6 627) Beach Attendant ID - PIAYA [id number] 05:37:25 Test Item Value Reference Range Interpretation Comments PHOSPHORUS (BEAKER) (test code = 3.4 mg/dL 2.3-4.7 604) Beach Attendant ID - PIMILTON LBASIC METABOLIC [id number] 05:37:24 Test Item Value Reference Range Interpretation [...] not appl icable for dialysis patien ts Beach Attendant ID - PIMILTON LCBC W/PLT COUNT & AUTO [id number] 04:52:11 Test Item Value Reference Range Interpretation [...] PERCENT (BEAKER) (test code = 2801) POCT-GLUCOSE [id number] 21:41:26 Test Item Value Reference Range Interpretation Comments POC-GLUCOSE METER 158 mg/dL 70-110 H : TESTED Radha Finley [facility] 6720 (BEAKER) (test code = [place], 1538) [address]: Beach Attendant/Techni wendi ID = [id number] for Zunilda Bowman SARS-COV2/RT-PCR ([facility])2022-08-03 17:40:19 Test Item Value Reference Range Interpretation Comments SARS-COV2/RT-PCR Negative Negative The SARS-Co V-2 target (test code = nucleic acids a re not 5339841) detected in thi s specimen. Negative result [...] revoked sooner. Fact Sheet for Healthcare Providers: https://www.[employer] m/Documents/Xpert%20Xpress%20SARS%20CoV-2/Fact%20Sheets/3023802%03NKEQ-ECJ-9%20 HEALTHCARE%20PROVIDERS%20FACT%20SHEET.pdf Fact Sheet for Healthcare Patients: https://www.[employer]/Documents/Xpert%20Xp ress%20SARS%20CoV-2/Fact%20Sheets/3023801%33NBZQ-QCY-8%20PATIENT%20FACT%20SHEET .pdfPOCT-GLUCOSE [id number] 17:31:30 Test Item Value Reference Range Interpretation Comments POC-GLUCOSE METER 130 mg/dL 70-110 H : TESTED A T [facility] 6720 (JUAN F) (test code = [place], 1538) [address]: Beach Attendant/Techni wendi ID = [id number] for An Maria Isabel Suárez BASIC METABOLIC [id number] 15:37:56 Test Item Value Reference Range Interpretation [...] not appl icable for dialysis patien ts Beach Attendant ID - BSPOCT-GLUCOSE [id number] 08:00:43 Test Item Value Reference Range Interpretation Comments POC-GLUCOSE METER 135 mg/dL 70-110 H : TESTED A T [facility] 6720 (BEAKER) (test code = [place], 1538) [address]: Beach Attendant/Techni wendi ID = [id number] for LIDIA GA [id number] 07:00:24 Test Item Value Reference Range Interpretation Comments PHOSPHORUS (BEAKER) (test code = 3.6 mg/dL 2.3-4.7 604) Beach Attendant ID - MARIO LBASIC METABOLIC [id number] 07:00:23 Test Item Value Reference Range Interpretation [...] not appl icable for dialysis patien ts Beach Attendant ID - PIMILTON [id number] 07:00:23 Test Item Value Reference Range Interpretation Comments MAGNESIUM (BEAKER) (test code = 1.7 mg/dL 1.6-2.6 627) Beach Attendant ID - MARIO LBLOOD GAS, [id number] 05:22:21 Test Item Value Reference Range Interpretation [...] 1819) 21.0 CBC W/PLT COUNT & AUTO [id number] 05:20:43 Test Item Value Reference Range Interpretation [...] PERCENT (BEAKER) (test code = 2801) POCT-GLUCOSE [id number] 20:47:19 Test Item Value Reference Range Interpretation Comments POC-GLUCOSE METER 161 mg/dL 70-110 H : TESTED A T [facility] 6720 (BEAKER) (test code = [facility], 1538) 188[address]: Beach Attendant/Techni wendi ID = [id number] for ELKE FOWLER POCT-GLUCOSE [id number] 17:26:57 Test Item Value Reference Range Interpretation Comments POC-GLUCOSE METER 136 mg/dL 70-110 H : TESTED A T [facility] 6720 (BEAKER) (test code [facility], = 1538) [address]: Beach Attendant/Techni wendi ID = [id number] for Sally Lenz RAD, CHEST, PA OR AP, 1 [id number] 13:58:00Reason for exam:->left sided thoracentesisUN[facility] NOR[place] : 1940 Sex: FFINAL REPORT Chest, 1 [...] changes from median sternotomy again noted. Signed: Ronny AshrafReport Verified Date/Time: 08/02/2022 13:58:56 U/S, [id number] 13:55:00Laterality?->LeftReason for exam:->pl effusionShould this be performed at the bedside?->NoLabs to be Ordered:- >No Labs Needed [facility] : 1940 Sex: FFINAL REPORT Ultrasound guided left thoracentesis. Clinical History: Left pleural effusion. Modality: Ultrasound. Sedation: None. Radiologic Technician: Cherri Joyce PA-C Tower Technician: None. Estimated Blood Loss: 1cc Specimen: 600 [...] ultrasound guided left thoracentesis. Signed: Jerod Ashraf Verified Date/Time: 08/02/2022 13:55:45 Reading Location: [address] Ultrasound Reading Room POCT- GLUCOSE [id number] 12:40:44 Test Item Value Reference Range Interpretation Comments POC-GLUCOSE METER 129 mg/dL 70-110 H : TESTED A T [facility] 6720 (BEAKER) (test code [facility], = 1538) 94147: Beach Attendant/Techni wendi ID = [id number] for Sally Lenz BASIC METABOLIC [id number] 11:30:42 Test Item Value Reference Range Interpretation [...] not as accur ate as Creatinine Susanne carlsonce in predicting glom erular filtration rate . Estimated GFR is not appl icable for dialysis patien ts Beach Attendant ID - ADMINPT/GRGB6266-09-30 11:12:20 Test Item Value Reference Range Interpretation [...] 2.5-3.5 for patients with mechanical heart valves.POCT-GLUCOSE [id number] 08:15:57 Test Item Value Reference Range Interpretation Comments POC-GLUCOSE METER 127 mg/dL 70-110 H : TESTED A T [facility] 6720 (BEAKER) (test code [facility], = 1538) [address]: Beach Attendant/Techni wendi ID = [id number] for Sally Lenz [id number] 05:57:57 Test Item Value Reference Range Interpretation Comments MAGNESIUM (BEAKER) (test code = 1.9 mg/dL 1.6-2.6 627) Beach Attendant ID - [id number] 05:57:57 Test Item Value Reference Range Interpretation Comments PHOSPHORUS (BEAKER) (test code = 3.6 mg/dL 2.3-4.7 604) Beach Attendant ID - ADMINBASIC METABOLIC [id number] 05:57:56 Test Item Value Reference Range Interpretation [...] not appl icable for dialysis patien ts Beach Attendant ID - ADMINCBC W/PLT COUNT & AUTO [id number] 05:20:19 Test Item Value Reference Range Interpretation [...] PERCENT (BEAKER) (test code = 2801) POCT-GLUCOSE [id number] 21:42:09 Test Item Value Reference Range Interpretation Comments POC-GLUCOSE METER 160 mg/dL 70-110 H : TESTED A T [facility] 6720 (BEAKER) (test code = [place], 1538) [address]: Beach Attendant/Techni wendi ID = [id number] for ELKE FOWLER BASIC METABOLIC [id number] 21:25:43 Test Item Value Reference Range Interpretation [...] not appl icable for dialysis patien ts Beach Attendant ID - ADMINPOCT-GLUCOSE [id number] 18:33:15 Test Item Value Reference Range Interpretation Comments POC-GLUCOSE METER 141 mg/dL 70-110 H : TESTED A T [facility] 6720 (BEAKER) (test code = [facility], 1538) [address]: Beach Attendant/Techni wendi ID = [id number] for Iv ey (contract), Sim one BLOOD [id number] 17:00:55 Test Item Value Reference Range Interpretation Comments CULTURE (BEAKER) (test No growth in 5 days code = 1095) BLOOD [id number] 16:01:01 Test Item Value Reference Range Interpretation [...] not appl icable for dialysis patien ts Beach Attendant ID - BRYCE WRAD, CHEST, 1 VIEW, NON [id number] 10:20:00Reason for exam:->s/p ACBShould this be performed at the bedside?->Yes [facility] : 1940 Sex: FFINAL REPORT EXAMINATION: RAD, CHEST, 1 VIEW, NON DEPT INDICATION: Postoperative COMPARISON: Chest radiograph of the prior day FINDINGS: LINES/TUBES: EKG leads overlie the chest. LUNGS: Stable lung volumes and left greater than right airspace opacities. PLEURA: Stable left pleural effusion. No pneumothorax. MEDIASTINUM: The cardiomediastinal silhouette appears unchanged in size and shape. BONES/SOFT TISSUES:No acute osseous injury. Sternotomy wires unchanged. ABDOMEN:No free air under the diaphragm. IMPRESSION: No significant interval change. Signed: Raul Branham MDReport Verified Date/Time: 08/01/2022 10:20:55 POCT- GLUCOSE [id number] 07:50:01 Test Item Value Reference Range Interpretation Comments POC-GLUCOSE METER 134 mg/dL 70-110 H : Notified RN/MD: (BEAKER) (test code = TESTED AT [facility] 6720 1538) [facility], [address]: Beach Attendant/Techni wendi ID = [id number] for Mo rris, Umu CALCIUM, [id number] 06:05:38 Test Item Value Reference Range Interpretation Comments CALCIUM IONIZED (BEAKER) (test 1.22 mmol/L 1.12-1.27 code = 698) PH, BLOOD (BEAKER) (test code = 7.35 1810) [id number] 05:30:31 Test Item Value Reference Range Interpretation Comments PHOSPHORUS (BEAKER) (test code = 3.3 mg/dL 2.3-4.7 604) Beach Attendant ID - SHEKHAR WCOMPREHENSIVE METABOLIC [id number] 05:30:30 Test Item Value Reference Range Interpretation [...] not appl icable for dialysis patien ts Beach Attendant ID - SHEKHAR [id number] 05:30:30 Test Item Value Reference Range Interpretation Comments MAGNESIUM (BEAKER) (test code = 2.2 mg/dL 1.6-2.6 627) Beach Attendant ID Kelly CORRIGAN WCBC W/PLT COUNT & AUTO [id number] 04:52:33 Test Item Value Reference Range Interpretation [...] PERCENT (BEAKER) (test code = 2801) POCT-GLUCOSE [id number] 21:47:48 Test Item Value Reference Range Interpretation Comments POC-GLUCOSE METER 181 mg/dL 70-110 H : TESTED A T [facility] 6720 (BEAKER) (test code = [place], 1538) [address]: Beach Attendant/Techni wendi ID = [id number] for YUMIKO LIN BASIC METABOLIC [id number] 20:48:42 Test Item Value Reference Range Interpretation [...] not appl icable for dialysis patien ts Beach Attendant ID - BSPOCT-GLUCOSE [id number] 16:44:00 Test Item Value Reference Range Interpretation Comments POC-GLUCOSE METER 148 mg/dL 70-110 H : TESTED A T [facility] 6720 (BEAKER) (test code = [place], 1538) [address]: Beach Attendant/Techni wendi ID = [id number] for Gm as (contract), Alanis lozada BASIC METABOLIC [id number] 12:42:35 Test Item Value Reference Range Interpretation [...] not appl icable for dialysis patien ts Beach Attendant ID - SHEKHAR WPOCT-GLUCOSE [id number] 12:22:37 Test Item Value Reference Range Interpretation Comments POC-GLUCOSE METER 144 mg/dL 70-110 H : TESTED A T [facility] 6720 (JUAN F) (test code = [facility], 1538) 79[address]: Beach Attendant/Techni wendi ID = [id number] for Gm as (contract), Boi kierra RAD, CHEST, 1 VIEW, NON [id number] 10:05:00Reason for exam:->s/p ACBShould this be performed at the bedside?->Yes [facility] 1940 Sex: FFINAL REPORT RAD, [...] pneumonia or pulmonary edema. Signed: Javi Hutson MDRepcole Verified Date/Time: 07/31/2022 10:05:35 Reading Location: [address] Reading Room CBC W/PLT COUNT & AUTO [id number] 07:34:30 Test Item Value Reference Range Interpretation [...] CONCENTRATION Adequate (CELLAVISION)(BEAKER) (test code = 3438) Beach Attendant ID - Jason HooksoKellyonUselatisha comments: Slide comments:POCT-GLUCOSE METER 2022-07-31 06:26:47 Test Item Value Reference Range Interpretation Comments POC-GLUCOSE METER 133 mg/dL 70-110 H : TESTED A T [facility] [address]20 (BEAKER) (test code = [facility] [place], 1538) [address]: Beach Attendant/Techni wendi ID = [id number] for Saira bailey (contract), [facility] COMPREHENSIVE METABOLIC [id number] 03:38:22 Test Item Value Reference Range Interpretation [...] not appl icable for dialysis patien ts Beach Attendant ID - PIAYA [id number] 03:36:21 Test Item Value Reference Range Interpretation Comments MAGNESIUM (BEAKER) (test code = 2.4 mg/dL 1.6-2.6 627) Beach Attendant ID - MARIO [id number] 03:36:21 Test Item Value Reference Range Interpretation Comments PHOSPHORUS (BEAKER) (test code = 3.9 mg/dL 2.3-4.7 604) Beach Attendant ID - MARIO LCALCIUM, [id number] 02:22:50 Test Item Value Reference Range Interpretation Comments CALCIUM IONIZED (BEAKER) (test 1.19 mmol/L 1.12-1.27 code = 698) PH, BLOOD (BEAKER) (test code = 7.37 1810) Blood gas, [id number] 02:21:49 Test Item Value Reference Range Interpretation Comments pH, Arterial (test code 7.37 7.35-7.45 = 2744-1) pCO2, Arterial (test 52 See_Comment H [Autom ated message] code = 2018-) The system [facility] generated this result transmit salvador reference range : 35 - 45 mm Hg. The reference range was not used to interpret this result as normal/abnormal . pO2, Arterial (test 118 See_Comment H [Automa salvador message] code = 2703-7) The system [facility] generated this result transmit salvador reference range : 80 - 90 mm Hg. The reference range was not used to interpret this result as normal/abnormal . O2 Sat, Arterial (test 98.1 % 96.0-97.0 H code = 2708-6) HCO3, Arterial (test 29 mmol/L 21-29 code = 1960-4) Base Excess, Arterial 3.1 mmol/L -2.0-3.0 H (test code = 1925-7) Patient Temperature 37.0 (test code = 8310-5) Lab Interpretation Abnormal (test code = 29119-4) [facility], [id number] 02:21:49 Test Item Value Reference Range Interpretation Comments pH, Arterial (test code 7.37 7.35-7.45 = 2744-1) pCO2, Arterial (test 52 See_Comment H [Autom ated message] code = 2018-8) The system [facility] generated this result transmit salvador reference range : 35 - 45 mm Hg. The reference range was not used to interpret this result as normal/abnormal . pO2, Arterial (test 118 See_Comment H [Automa salvador message] code = 2703-7) The system [facility] generated this result transmit salvador reference range : 80 - 90 mm Hg. The reference range was not used to interpret this result as normal/abnormal . O2 Sat, Arterial (test 98.1 % 96.0-97.0 H code = 2708-6) HCO3, Arterial (test 29 mmol/L 21-29 code = 1960-4) Base Excess, Arterial 3.1 mmol/L -2.0-3.0 H (test code = 1925-7) Patient Temperature 37.0 (test code = 8310-5) Lab Interpretation Abnormal (test code = 12931-8) [facility] [place], [id number] 02:21:49 Test Item Value Reference Range Interpretation [...] 21-29 = 388) BASE EXCESS ARTERIAL (BEAKER) 3.1 mmol/L -2.0-3.0 H (test code = 387) PATIENT TEMPERATURE (BEAKER) (test 37.0 code = 1818) POCT-GLUCOSE [id number] 23:28:01 Test Item Value Reference Range Interpretation Comments POC-GLUCOSE METER 163 mg/dL 70-110 H : TESTED A T [facility] 6720 (BEAKER) (test code = [facility], 1538) [address]: Beach Attendant/Techni wendi ID = [id number] for DO DELIA YUMIKO POCT-GLUCOSE [id number] 18:07:42 Test Item Value Reference Range Interpretation Comments POC-GLUCOSE METER 160 mg/dL 70-110 H : TESTED A T [facility] 6720 (BEAKER) (test code = [facility], 1538) [address]: Beach Attendant/Techni wendi ID = [id number] for Laurence Perales BASIC METABOLIC [id number] 17:07:46 Test Item Value Reference Range Interpretation [...] (test code = 697) EGFR (BEAKER) 26 Interpretati on of eGFR (test code = [...] not appl icable for dialysis patien ts Beach Attendant ID - FSEPotassium, random [id number] 16:50:38 Test Item Value Reference Range Interpretation Comments Potassium Urine 11.7 meq/L (test code = 2828-2) JANEEN (test code = Reference Range: No JANEEN) NormalsOperator ID - BS [facility] [id number] 16:50:38 Test Item Value Reference Range Interpretation Comments Sodium Urine (test 34 meq/L code = 2955-3) JANEEN (test code = Reference Range: No JANEEN) NormalsOperator ID - BS [facility] random [id number] 16:50:38 Test Item Value Reference Range Interpretation Comments Sodium Urine (test 34 meq/L code = 2955-3) JANEEN (test code = Reference Range: No JANEEN) NormalsOperator ID - BS [facility] [place]Pot[place], random [id number] 16:50:38 Test Item Value Reference Range Interpretation Comments Potassium Urine 11.7 meq/L (test code = 2828-2) JANEEN (test code = Reference Range: No JANEEN) NormalsOperator ID - BS [facility] [place]POT[place]SIUM, RANDOM [id number] 16:50:38 Test Item Value Reference Range Interpretation Comments POTASSIUM URINE (BEAKER) (test 11.7 meq/L code = 195) Reference Range: No NormalsOperator ID - BSSODIUM, RANDOM [id number] 16:50:38 Test Item Value Reference Range Interpretation Comments SODIUM URINE (BEAKER) (test code = 34 meq/L 243) Reference Range: No NormalsOperator ID - BSChloride, random [id number] 16:50:37 Test Item Value Reference Range Interpretation Comments Chloride, Urine (test 53 meq/L 20-330 code = 91018-1) JANEEN (test code = JANEEN) Reference Range: No NormalsOperator ID - BS Lab Interpretation Normal (test code = 28656-8) [facility] [place]Ch[place], random [id number] 16:50:37 Test Item Value Reference Range Interpretation Comments Chloride, Urine (test 53 meq/L 20-330 code = 13518-3) JANEEN (test code = JANEEN) Reference Range: No NormalsOperator ID - BS Lab Interpretation Normal (test code = 40322-4) [facility] [place]CHLORIDE, RANDOM [id number] 16:50:37 Test Item Value Reference Range Interpretation Comments CHLORIDE URINE (BEAKER) (test code = 53 meq/L 20330 682) Reference Range: No NormalsOperator ID - BSOsmolality, [id number] 16:44:44 Test Item Value Reference Range Interpretation Comments Osmolality, Ur (test code 225 See_Comment [ Automated message] = 8075-5) The system [employer] generated this result transmitted ref erence range: 50-1,200 mOsm/kg mOsm/kg . The reference range was not used to int erpret this result as normal/abnormal . Lab Interpretation (test Normal code = 48921-3) [facility] SacramentoOsmolality, [id number] 16:44:44 Test Item Value Reference Range Interpretation Comments Osmolality, Ur (test code 225 See_Comment [ Automated message] = 2695-5) The system [employer] h generated this result transmitted ref erence range: 50-1,200 mOsm/kg mOsm/kg . The reference range was not used to int erpret this result as normal/abnormal . Lab Interpretation (test Normal code = 60760-6) [facility] SacramentoOSMOLALITY, [id number] 16:44:44 Test Item Value Reference Range Interpretation Comments OSMOLALITY URINE 225 mOsm/kg See_Comment [Automated message] (BEAKER) (test code = The sy stem which 614) generated this result transmitted ref erence range: 50-1,200 mOsm/kg. The reference range was not used to int erpret this result as normal/abnormal . BLOOD GAS, [id number] 12:43:26 Test Item Value Reference Range Interpretation [...] (BEAKER) (test code = 1819) 32.0 POCT-GLUCOSE [id number] 12:01:02 Test Item Value Reference Range Interpretation Comments POC-GLUCOSE METER 194 mg/dL 70-110 H : TESTED A T [facility] 6720 (BEAKER) (test code = [place], 1538) [address]: Beach Attendant/Techni wendi ID = [id number] for Buck bravo (contract)Alanis OSMOLALITY, [id number] 10:31:45 Test Item Value Reference Range Interpretation Comments OSMOLALITY, SERUM (BEAKER) (test 289 mOsm/kg 275-295 code = 615) RAD, CHEST, 1 VIEW, NON [id number] 09:41:00Reason for exam:->s/p ACBShould this be performed at the bedside?->Yes [facility] 1940 Sex: FFINAL REPORT RAD, [...] edema. Signed: Javi Hutson MDReport Verified Date/Time: 07/30/2022 09:41:23 Reading Location: [address] Reading Room BASIC METABOLIC [id number] 08:13:46 Test Item Value Reference Range Interpretation [...] not appl icable for dialysis patien ts Beach Attendant ID - SANTI MBLOOD GAS, [id number] 07:55:27 Test Item Value Reference Range Interpretation [...] (BEAKER) (test code = 1819) 50.0 POCT-GLUCOSE [id number] 06:49:40 Test Item Value Reference Range Interpretation Comments POC-GLUCOSE METER 154 mg/dL 70-110 H : TESTED A T [facility] 6720 (BEAKER) (test code = [place], 1538) [address]: Beach Attendant/Techni wendi ID = [id number] for DO December (CELLAVISION MANUAL DIFF)2022-07-30 06:09:56 [...] CONCENTRATION Adequate (CELLAVISION)(BEAKER) (test code = 3438) Beach Attendant ID - [place] comments: Slide comments:CBC W/PLT COUNT & AUTO [id number] 06:09:55 Test Item Value Reference Range Interpretation [...] 0-0 H (BEAKER) (test code = 413) [id number] 04:27:46 Test Item Value Reference Range Interpretation Comments PHOSPHORUS (BEAKER) (test code = 4.7 mg/dL 2.3-4.7 604) Beach Attendant ID - SANTI [id number] 04:27:45 Test Item Value Reference Range Interpretation Comments MAGNESIUM (BEAKER) (test code = 2.6 mg/dL 1.6-2.6 627) Beach Attendant ID - SANTI MBLOOD GAS, [id number] 03:55:12 Test Item Value Reference Range Interpretation [...] (BEAKER) (test code = 1819) 21.0 CALCIUM, [id number] 03:54:29 Test Item Value Reference Range Interpretation Comments CALCIUM IONIZED (BEAKER) (test 1.18 mmol/L 1.12-1.27 code = 698) PH, BLOOD (BEAKER) (test code = 7.29 1810) BASIC METABOLIC [id number] 01:02:50 Test Item Value Reference Range Interpretation [...] not appl icable for dialysis patien ts Beach Attendant ID - SANTI MPOCT-GLUCOSE [id number] 00:06:32 Test Item Value Reference Range Interpretation Comments POC-GLUCOSE METER 149 mg/dL 70-110 H : TESTED A T [facility] 6720 (BEAKER) (test code = [place] [place], 1538) [address]: Beach Attendant/Techni wendi ID = [id number] for DO December BASIC METABOLIC [id number] 17:25:03 Test Item Value Reference Range Interpretation [...] 8.4-10.2 (test code = 697) EGFR (BEAKER) 18 Interpretati on of eGFR (test code = [...] not appl icable for dialysis patien ts Beach Attendant ID - BSPOCT-GLUCOSE [id number] 16:55:07 Test Item Value Reference Range Interpretation Comments POC-GLUCOSE METER 189 mg/dL 70-110 H : TESTED A T [facility] 6720 (BEAKER) (test code = [facility], 1538) [address]: Beach Attendant/Techni wendi ID = [id number] for Buck lawrence (contract)Alanis [id number] 12:32:43 Test Item Value Reference Range Interpretation Comments SODIUM (BEAKER) (test code = 381) 127 meq/L 136-145 L Beach Attendant ID - MITCHPOCT-GLUCOSE [id number] 12:12:19 Test Item Value Reference Range Interpretation Comments POC-GLUCOSE METER 97 mg/dL 70-110 : Notified RN/MD: TESTED (BEAKER) (test code = AT [facility] 6720 [address] 5148) [facility], 770 30: Beach Attendant/Techni wendi ID = [id number] for Morr is, Umu RAD, CHEST, 1 VIEW, NON [id number] 09:22:00Reason for exam:->f/u effusion [facility] : 1940 Sex: FFINAL REPORT RAD, CHEST, 1 VIEW, NON DEPT INDICATION: f/u effusion COMPARISON: Prior day's exam TECHNIQUE: Portable frontal view of the chest. FINDINGS: Support Lines and Devices: Stable. Lungs and pleura: Unchanged airspace and pleural opacities. No pneumothorax identified. Heart and mediastinum: Stable contours. Stable surgical changes. Additional findings: The patient is rotated to the right. IMPRESSION: 1.No significant change from prior exam.2.Moderate left pleural effusion.3.Left retrocardiac opacity, representing singly or in combination pneumonia, atelectasis, or pleural effusion. Signed: Javi Hutson MDReport Verified Date/Time: 07/29/2022 09:22:23 Reading Location: [address] Reading Room BASIC METABOLIC [id number] 06:32:17 Test Item Value Reference Range Interpretation [...] not appl icable for dialysis patien ts Beach Attendant ID - SANTI MBASIC METABOLIC [id number] 06:27:54 Test Item Value Reference Range Interpretation [...] not appl icable for dialysis patien ts Beach Attendant ID - ADMINPOCT-GLUCOSE [id number] 05:57:53 Test Item Value Reference Range Interpretation Comments POC-GLUCOSE METER 101 mg/dL 70-110 : TESTED A T [facility] 6720 (BEAKER) (test code = [place], 1538) [address]: Beach Attendant/Techni wendi ID = [id number] for DO December [id number] 03:35:24 Test Item Value Reference Range Interpretation Comments MAGNESIUM (BEAKER) 3.0 mg/dL 1.6-2.6 H Specimen slightly (test code = 627) hemolyzed Beach Attendant ID - [id number] 03:35:24 Test Item Value Reference Range Interpretation Comments PHOSPHORUS (BEAKER) 4.6 mg/dL 2.3-4.7 Specimen slightly (test code = 604) hemolyzed Beach Attendant ID - ADMINCBC W/PLT COUNT & AUTO [id number] 03:11:24 Test Item Value Reference Range Interpretation [...] (BEAKER) (test code = 2801) BLOOD GAS, [id number] 03:10:06 Test Item Value Reference Range Interpretation [...] (BEAKER) (test code = 1819) 21.0 CALCIUM, [id number] 03:09:16 Test Item Value Reference Range Interpretation Comments CALCIUM IONIZED (BEAKER) (test 1.14 mmol/L 1.12-1.27 code = 698) PH, BLOOD (BEAKER) (test code = 7.39 1810) BASIC METABOLIC [id number] 01:15:27 Test Item Value Reference Range Interpretation [...] not appl icable for dialysis patien ts Beach Attendant ID - SANTI MPOCT-GLUCOSE [id number] 23:15:31 Test Item Value Reference Range Interpretation Comments POC-GLUCOSE METER 128 mg/dL 70-110 H : TESTED A T [facility] 6720 (BEAKER) (test code = [facility], 1538) [address]: Beach Attendant/Techni wendi ID = [id number] for Ena Pittman Glucose-Stat [id number] 21:03:20 Test Item Value Reference Range Interpretation Comments Glucose (test code = 2345-7) 25 mg/dL 70-110 LL Lab Interpretation (test code = Abnormal 90378-4) [facility] [place] [id number] 21:03:20 Test Item Value Reference Range Interpretation Comments Glucose (test code = 2345-7) 25 mg/dL 70-110 LL Lab Interpretation (test code = Abnormal 94089-4) [facility] [place] [id number] 21:03:20 Test Item Value Reference Range Interpretation Comments GLUCOSE RANDOM (BEAKER) (test code = 25 mg/dL 70-110 LL 652) HGB/HCT (H&H)-Stat [id number] 21:02:04 Test Item Value Reference Range Interpretation Comments Hemoglobin (test code = 8.6 See_Comment L [Au tomated message] 189-7) The system [employer] generated this result transmitted ref erence range: 12.0 - 1 5.0 GM/DL. The refe rence range was not u sed to interpret this result as normal/abnor mal. Hematocrit (test code = 25.0 % 36.0-45.0 L 4544-3) Lab Interpretation (test Abnormal code = 28689-9) [facility] [id number] 21:02:04 Test Item Value Reference Range Interpretation Comments Sodium (test code = 2951-2) 126 meq/L 136-145 L Lab Interpretation (test code = Abnormal 57438-7) [facility] [place]HGB/HCT (H&H)-Stat [id number] 21:02:04 Test Item Value Reference Range Interpretation Comments Hemoglobin (test code = 8.6 See_Comment L [Au tomated message] 828-7) The system [employer] generated this result transmitted ref erence range: 12.0 - 1 5.0 GM/DL. The refe rence range was not u sed to interpret this result as normal/abnor mal. Hematocrit (test code = 25.0 % 36.0-45.0 L 4544-3) Lab Interpretation (test Abnormal code = 89583-8) [facility] Na-Stat [id number] 21:02:04 Test Item Value Reference Range Interpretation Comments Sodium (test code = 2951-2) 126 meq/L 136-145 L Lab Interpretation (test code = Abnormal 01422-1) [facility] [id number] 21:02:04 Test Item Value Reference Range Interpretation Comments SODIUM (BEAKER) (test code = 381) 126 meq/L 136-145 L HGB/HCT (H&H) - STAT [id number] 21:02:04 Test Item Value Reference Range Interpretation Comments HEMOGLOBIN (BEAKER) (test code = 8.6 GM/DL 12.0-15.0 L 410) HEMATOCRIT (BEAKER) (test code = 25.0 % 36.0-45.0 L 411) BLOOD GAS, [id number] 21:02:03 Test Item Value Reference Range Interpretation [...] (BEAKER) (test code = 1819) 21.0 Potassium-Stat [id number] 21:01:43 Test Item Value Reference Range Interpretation Comments Potassium (test code = 2823-3) 4.3 meq/L 3.6-5.5 Lab Interpretation (test code = Normal 96357-7) [facility] [place]Stat [id number] 21:01:43 Test Item Value Reference Range Interpretation Comments Potassium (test code = 2823-3) 4.3 meq/L 3.6-5.5 Lab Interpretation (test code = Normal 26799-6) [facility] [place]POT[place]UM-STAT [id number] 21:01:43 Test Item Value Reference Range Interpretation Comments POTASSIUM (BEAKER) (test code = 4.3 meq/L 3.6-5.5 379) SODIUM NA-STAT [id number] 18:15:31 Test Item Value Reference Range Interpretation Comments SODIUM (BEAKER) (test code = 381) 126 meq/L 136-145 L POTASSIUM-STAT [id number] 18:15:20 Test Item Value Reference Range Interpretation Comments POTASSIUM (BEAKER) (test code = 4.5 meq/L 3.6-5.5 379) HGB/HCT (H&H) - STAT [id number] 18:15:05 Test Item Value Reference Range Interpretation Comments HEMOGLOBIN (BEAKER) (test code = 8.9 GM/DL 12.0-15.0 L 410) HEMATOCRIT (BEAKER) (test code = 26.0 % 36.0-45.0 L 411) GLUCOSE-STAT [id number] 18:14:43 Test Item Value Reference Range Interpretation Comments GLUCOSE RANDOM (BEAKER) (test code = 69 mg/dL 70-110 L 652) BLOOD GAS, [id number] 17:20:38 Test Item Value Reference Range Interpretation [...] = 1819) 28.0 HGB/HCT (H&H) - STAT [id number] 16:15:55 Test Item Value Reference Range Interpretation Comments HEMOGLOBIN (BEAKER) (test code = 9.6 GM/DL 12.0-15.0 L 410) HEMATOCRIT (BEAKER) (test code = 28.0 % 36.0-45.0 L 411) SODIUM NA-STAT [id number] 16:15:55 Test Item Value Reference Range Interpretation Comments SODIUM (BEAKER) (test code = 381) 126 meq/L 136-145 L BASIC METABOLIC [id number] 16:14:45 Test Item Value Reference Range Interpretation [...] is not as accur ate as Creatinine Ssuanne lund in predicting glom erular filtration rate . Estimated GFR is not appl icable for dialysis patien ts Beach Attendant ID - ADMINBLOOD GAS, [id number] 16:12:37 Test Item Value Reference Range Interpretation [...] (BEAKER) (test code = 1819) 28.0 GLUCOSE-STAT [id number] 16:08:21 Test Item Value Reference Range Interpretation Comments GLUCOSE RANDOM (BEAKER) (test code = 67 mg/dL 70-110 L 652) POTASSIUM-STAT [id number] 16:08:21 Test Item Value Reference Range Interpretation Comments POTASSIUM (BEAKER) (test code = 4.6 meq/L 3.6-5.5 379) POCT-GLUCOSE [id number] 16:04:33 Test Item Value Reference Range Interpretation Comments POC-GLUCOSE METER 70 mg/dL 70-110 : TESTED A T [facility] 6720 (BEAKER) (test code = [facility], 1538) [address]: Beach Attendant/Techni wendi ID = [id number] for Cherri Lopez BASIC METABOLIC [id number] 13:41:39 Test Item Value Reference Range Interpretation [...] not appl icable for dialysis patien ts Beach Attendant ID - SHAYY BBLOOD GAS, [id number] 13:21:50 Test Item Value Reference Range Interpretation [...] = 1819) 28.0 HGB/HCT (H&H) - STAT [id number] 13:21:40 Test Item Value Reference Range Interpretation Comments HEMOGLOBIN (BEAKER) (test code = 8.6 GM/DL 12.0-15.0 L 410) HEMATOCRIT (BEAKER) (test code = 25.0 % 36.0-45.0 L 411) SODIUM NA-STAT [id number] 13:21:39 Test Item Value Reference Range Interpretation Comments SODIUM (BEAKER) (test code = 381) 125 meq/L 136-145 L GLUCOSE-STAT [id number] 13:20:26 Test Item Value Reference Range Interpretation Comments GLUCOSE RANDOM (BEAKER) (test code = 69 mg/dL 70-110 L 652) POTASSIUM-STAT [id number] 13:20:26 Test Item Value Reference Range Interpretation Comments POTASSIUM (BEAKER) (test code = 4.6 meq/L 3.6-5.5 379) BASIC METABOLIC [id number] 12:18:50 Test Item Value Reference Range Interpretation [...] not appl icable for dialysis patien ts Beach Attendant ID - JASON DSODIUM NA-STAT [id number] 12:04:58 Test Item Value Reference Range Interpretation Comments SODIUM (BEAKER) (test code = 381) 124 meq/L 136-145 L HGB/HCT (H&H) - STAT [id number] 12:04:58 Test Item Value Reference Range Interpretation Comments HEMOGLOBIN (BEAKER) (test code = 9.1 GM/DL 12.0-15.0 L 410) HEMATOCRIT (BEAKER) (test code = 27.0 % 36.0-45.0 L 411) POTASSIUM-STAT [id number] 12:04:45 Test Item Value Reference Range Interpretation Comments POTASSIUM (BEAKER) (test code = 4.7 meq/L 3.6-5.5 379) GLUCOSE-STAT [id number] 12:04:44 Test Item Value Reference Range Interpretation Comments GLUCOSE RANDOM (BEAKER) (test code = 64 mg/dL 70-110 L 652) BLOOD GAS, [id number] 12:04:17 Test Item Value Reference Range Interpretation [...] (BEAKER) (test code = 1819) 36.0 POCT-GLUCOSE [id number] 11:43:15 Test Item Value Reference Range Interpretation Comments POC-GLUCOSE METER 73 mg/dL 70-110 : TESTED A T [facility] 6720 (BEAKER) (test code = [place], 1538) [address]: Beach Attendant/Techni wendi ID = [id number] for Jagdeep Robertson RAD, CHEST, 1 VIEW, NON [id number] 10:00:00Reason for exam:->f/u effusion [facility] 1940 Sex: FFINAL REPORT RAD, [...] pulmonary edema. Signed: Javi Hutsonepcole Verified Date/Time: 07/28/2022 10:00:49 Reading Location: [address] Reading Room BASIC METABOLIC [id number] 09:24:18 Test Item Value Reference Range Interpretation [...] not appl icable for dialysis patien ts Beach Attendant ID - SHAYY BBLOOD GAS, [id number] 09:04:38 Test Item Value Reference Range Interpretation [...] = 1819) 36.0 HGB/HCT (H&H) - STAT [id number] 09:03:13 Test Item Value Reference Range Interpretation Comments HEMOGLOBIN (BEAKER) (test code = 8.7 GM/DL 12.0-15.0 L 410) HEMATOCRIT (BEAKER) (test code = 26.0 % 36.0-45.0 L 411) SODIUM NA-STAT [id number] 09:03:12 Test Item Value Reference Range Interpretation Comments SODIUM (BEAKER) (test code = 381) 121 meq/L 136-145 L GLUCOSE-STAT [id number] 09:02:27 Test Item Value Reference Range Interpretation Comments GLUCOSE RANDOM (BEAKER) (test code = 75 mg/dL 70-110 652) POTASSIUM-STAT [id number] 09:02:27 Test Item Value Reference Range Interpretation Comments POTASSIUM (BEAKER) (test code = 4.8 meq/L 3.6-5.5 379) CALCIUM, [id number] 09:02:05 Test Item Value Reference Range Interpretation Comments CALCIUM IONIZED (BEAKER) (test 1.12 mmol/L 1.12-1.27 code = 698) PH, BLOOD (BEAKER) (test code = 7.37 1810) Body fluid culture + gram [id number] 08:23:00 Test Item Value Reference Range Interpretation Comments Result (test code = 6463-4) [facility] [place]Body [facility] + gram [id number] 08:23:00 Test Item Value Reference Range Interpretation Comments Result (test code = 6463-4) No growth [facility] SacramentoBODY FLUID CULTURE + GRAM [id number] 08:23:00 Test Item Value Reference Range Interpretation Comments CULTURE (BEAKER) (test code = 1095) No growth POCT-GLUCOSE [id number] 07:48:59 Test Item Value Reference Range Interpretation Comments POC-GLUCOSE METER 85 mg/dL 70-110 : TESTED A T [facility] 6720 (BEAKER) (test code = [facility], 1538) [address]: Beach Attendant/Techni wendi ID = [id number] for Jagdeep Robertson POCT-GLUCOSE [id number] 06:58:12 Test Item Value Reference Range Interpretation Comments POC-GLUCOSE METER 97 mg/dL 70-110 : TESTED A T [facility] 6720 (BEAKER) (test code = [facility], 1538) [address]: Beach Attendant/Techni wendi ID = [id number] for Ludivina Flores Lactic Acid, [id number] 05:06:23 Test Item Value Reference Range Interpretation Comments Lactate, Art (test code = 0.8 mmol/L 0.5-2.2 2874) JANEEN (test code = JANEEN) Beach Attendant ID - SHEKHAR Evans Lab Interpretation (test Normal code = 54317-9) [facility] [place] Acid, [id number] 05:06:23 Test Item Value Reference Range Interpretation Comments Lactate, Art (test code = 0.8 mmol/L 0.5-2.2 2874) JANEEN (test code = JANEEN) Beach Attendant ID - SHEKHAR Evans Lab Interpretation (test Normal code = 08794-7) [facility] [place]LACT[place] ACID, [id number] 05:06:23 Test Item Value Reference Range Interpretation Comments LACTATE BLOOD ARTERIAL (2) 0.8 mmol/L 0.5-2.2 (BEAKER) (test code = 2874) Beach Attendant ID - SHEKHAR WBLOOD GAS, [id number] 04:38:44 Test Item Value Reference Range Interpretation [...] = 1819) 21.0 HGB/HCT (H&H) - STAT [id number] 04:32:57 Test Item Value Reference Range Interpretation Comments HEMOGLOBIN (BEAKER) (test code = 8.7 GM/DL 12.0-15.0 L 410) HEMATOCRIT (BEAKER) (test code = 26.0 % 36.0-45.0 L 411) SODIUM NA-STAT [id number] 04:32:51 Test Item Value Reference Range Interpretation Comments SODIUM (BEAKER) (test code = 381) 122 meq/L 136-145 L POTASSIUM-STAT [id number] 04:32:18 Test Item Value Reference Range Interpretation Comments POTASSIUM (BEAKER) (test code = 4.8 meq/L 3.6-5.5 379) GLUCOSE-STAT [id number] 04:32:13 Test Item Value Reference Range Interpretation Comments GLUCOSE RANDOM (BEAKER) (test code = 68 mg/dL 70-110 L 652) BASIC METABOLIC [id number] 02:41:27 Test Item Value Reference Range Interpretation [...] not appl icable for dialysis patien ts Beach Attendant ID - MARIO [id number] 02:19:17 Test Item Value Reference Range Interpretation Comments MAGNESIUM (BEAKER) (test code = 3.1 mg/dL 1.6-2.6 H 627) Beach Attendant ID - MARIO [id number] 02:19:17 Test Item Value Reference Range Interpretation Comments PHOSPHORUS (BEAKER) (test code = 5.4 mg/dL 2.3-4.7 H 604) Beach Attendant ID - MARIO LCBC W/PLT COUNT & AUTO [id number] 01:46:54 Test Item Value Reference Range Interpretation [...] code = 2801) HGB/HCT (H&H) - STAT [id number] 01:17:41 Test Item Value Reference Range Interpretation Comments HEMOGLOBIN (BEAKER) (test code = 8.9 GM/DL 12.0-15.0 L 410) HEMATOCRIT (BEAKER) (test code = 26.0 % 36.0-45.0 L 411) SODIUM NA-STAT [id number] 01:17:40 Test Item Value Reference Range Interpretation Comments SODIUM (BEAKER) (test code = 381) 123 meq/L 136-145 L GLUCOSE-STAT [id number] 01:17:35 Test Item Value Reference Range Interpretation Comments GLUCOSE RANDOM (BEAKER) (test code = 84 mg/dL 70-110 652) POTASSIUM-STAT [id number] 01:17:35 Test Item Value Reference Range Interpretation Comments POTASSIUM (BEAKER) (test code = 5.0 meq/L 3.6-5.5 379) CALCIUM, [id number] 01:15:58 Test Item Value Reference Range Interpretation Comments CALCIUM IONIZED (BEAKER) (test 1.08 mmol/L 1.12-1.27 L code = 698) PH, BLOOD (BEAKER) (test code = 7.30 1810) BLOOD GAS, [id number] 01:15:58 Test Item Value Reference Range Interpretation [...] (BEAKER) (test code = 1819) 21.0 POCT-GLUCOSE [id number] 00:07:09 Test Item Value Reference Range Interpretation Comments POC-GLUCOSE METER 75 mg/dL 70-110 : TESTED A T [facility] 6720 (BEAKER) (test code = CHYNA PEREZ, 1538) [address]: Beach Attendant/Techni wendi ID = [id number] for BRIAN MENSAHT, DECEMBER BASIC METABOLIC [id number] 20:38:11 Test Item Value Reference Range Interpretation [...] not appl icable for dialysis patien ts Beach Attendant ID - AZBLOOD GAS, [id number] 20:18:24 Test Item Value Reference Range Interpretation [...] (test code = 1819) 21.0 SODIUM NA-STAT [id number] 20:18:24 Test Item Value Reference Range Interpretation Comments SODIUM (BEAKER) (test code = 381) 123 meq/L 136-145 L HGB/HCT (H&H) - STAT [id number] 20:18:24 Test Item Value Reference Range Interpretation Comments HEMOGLOBIN (BEAKER) (test code = 8.8 GM/DL 12.0-15.0 L 410) HEMATOCRIT (BEAKER) (test code = 26.0 % 36.0-45.0 L 411) POTASSIUM-STAT [id number] 20:18:08 Test Item Value Reference Range Interpretation Comments POTASSIUM (BEAKER) (test code = 4.9 meq/L 3.6-5.5 379) GLUCOSE-STAT [id number] 20:18:03 Test Item Value Reference Range Interpretation Comments GLUCOSE RANDOM (BEAKER) (test code = 89 mg/dL 70-110 652) RAD, CHEST, 1 VIEW, NON [id number] 17:45:00Reason for exam:->RIJ CVC placment/positionShould this be performed at the bedside?->Yes [facility] 1940 Sex: FFINAL REPORT TECHNIQUE: [...] left basilar opacity, unchanged. Signed: Rik Richey MDReport Verified Date/Time: 07/27/2022 17:45:20 BASIC METABOLIC [id number] 16:38:21 Test Item Value Reference Range Interpretation [...] not appl icable for dialysis patien ts Beach Attendant ID - SHAYY [id number] 16:37:47 Test Item Value Reference Range Interpretation Comments PHOSPHORUS (BEAKER) (test code = 5.7 mg/dL 2.3-4.7 H 604) Beach Attendant ID - SHAYY [id number] 16:37:46 Test Item Value Reference Range Interpretation Comments MAGNESIUM (BEAKER) (test code = 3.2 mg/dL 1.6-2.6 H 627) Beach Attendant ID - SHAYY [id number] 16:24:42 Test Item Value Reference Range Interpretation Comments PROCALCITONIN (BEAKER) (test code 0.45 ng/mL <0.05 H = 3036) SEPSIS RISK (ng/mL)Low: 0.05-0.50Intermediate: 0.51-2.00High: >=2.01BLOOD GAS, [id number] 16:14:09 Test Item Value Reference Range Interpretation [...] 1819) 32.0 RAD, CHEST, 1 VIEW, NON [id number] 15:30:00Reason for exam:->Pulmonary edemaShould this be performed at the bedside?->Yes [facility] NOR[place] : 1940 Sex: FFINAL REPORT RAD, CHEST, [...] Hutson Verified Date/Time: 07/27/2022 15:30:02 Reading Location: [address] Reading Room [id number] 15:21:10 Test Item Value Reference Range Interpretation Comments PARTIAL THROMBOPLASTIN TIME 40.2 seconds 22.5-36.0 H (BEAKER) (test code = 760) PROTHROMBIN TIME/[id number] 15:20:26 Test Item Value Reference Range Interpretation Comments PROTIME (BEAKER) 16.1 seconds 11.9-14.2 H (test code = 759) INR (BEAKER) (test 1.37 See_Comment [Automat ed message] code = 370) The system Colingo generated this result transmitted ref erence range: <=5.90. The reference range was not used to int erpret this result as normal/abnormal . RECOMMENDED COUMADIN/WARFARIN INR THERAPY RANGESSTANDARD DOSE: 2.0 - 3.0 Includes: PROPHYLAXIS for venous thrombosis, systemic embolization; TREATMENT for venous thrombosis and/or pulmonary embolus.HIGH RISK: Target INR is 2.5-3.5 for patients with mechanical heart valves.CBC W/PLT COUNT & AUTO [id number] 15:10:01 Test Item Value Reference Range Interpretation [...] (BEAKER) (test code = 413) LACTIC ACID, [id number] 15:01:58 Test Item Value Reference Range Interpretation Comments LACTATE BLOOD 1.0 mmol/L 0.5-2.2 Specimen sligh tly ARTERIAL (2) (BEAKER) hemoly zed (test code = 2874) Beach Attendant ID - FSEHEPATIC FUNCTION [id number] 13:43:56 Test Item Value Reference Range Interpretation [...] (test code = 10 U/L 6-55 347) Beach Attendant ID - SHAYY BPOCT-GLUCOSE [id number] 12:00:18 Test Item Value Reference Range Interpretation Comments POC-GLUCOSE METER 112 mg/dL 70-110 H : TESTED A T [facility] 6720 (BEAKER) (test code = CHYNA Good [facility], 1538) [address]: Beach Attendant/Techni wendi ID = [id number] for JANAY STEWARD POCT-GLUCOSE [id number] 11:40:46 Test Item Value Reference Range Interpretation Comments POC-GLUCOSE METER 113 mg/dL 70-110 H : TESTED A T [facility] 6720 (BEAKER) (test code = CHYNA Good [facility], 1538) [address]: Beach Attendant/Techni wendi ID = [id number] for Natanael Payan (CELLAVISION MANUAL DIFF)2022-07-27 11:03:48 [...] CONCENTRATION Adequate (CELLAVISION)(BEAKER) (test code = 3438) Beach Attendant ID - Jason Dato-onUser comments: Slide comments:(CELLAVISION [...] CONCENTRATION Adequate (CELLAVISION)(BEAKER) (test code = 3438) Beach Attendant ID - Jason Jesseeo-onUser comments: Slide comments:CBC W/PLT COUNT & AUTO [id number] 11:03:46 Test Item Value Reference Range Interpretation [...] = 413) CBC W/PLT COUNT & AUTO [id number] 11:03:45 Test Item Value Reference Range Interpretation [...] (BEAKER) (test code = 413) BASIC METABOLIC [id number] 10:05:20 Test Item Value Reference Range Interpretation [...] not appl icable for dialysis patien ts Beach Attendant ID - SANTI [id number] 10:05:03 Test Item Value Reference Range Interpretation Comments MAGNESIUM (BEAKER) 3.1 mg/dL 1.6-2.6 H Specimen slightly (test code = 627) hemolyzed Beach Attendant ID - SANTI [id number] 10:05:03 Test Item Value Reference Range Interpretation Comments PHOSPHORUS (BEAKER) 5.8 mg/dL 2.3-4.7 H Specimen slightly (test code = 604) hemolyzed Beach Attendant ID - SANTI MBASIC METABOLIC [id number] 09:42:53 Test Item Value Reference Range Interpretation [...] not appl icable for dialysis patien ts Beach Attendant ID - SANTI MURINALYSIS W/ REFLEX URINE [id number] 09:31:35 Test Item Value Reference Range Interpretation [...] = 1585) Occasional SOURCE(BEAKER) (test code = 3495) Beach Attendant ID - techU/S, [id number] 09:22:00Laterality?- >LeftReason for exam:->pleural effusionLabs to be Ordered:->Glucose+LDH+ProteinLabs to be Ordered:->Cell Count [facility] : 1940 Sex: FFINAL REPORT Ultrasound guided left thoracentesis. Clinical History: Left pleural effusion. Modality: Ultrasound. Sedation: None. Radiologic Technician: Cherri Joyce PA-C Tower Technician: None. Estimated Blood Loss: 1cc Specimen: 750 cc of nonclotting hemorrhagic fluid. Technique: Informed consent was obtained. The risks of pain, bleeding, infection, lung collapse/pneumothorax, injury to lety cent structures, and adverse medication reactions were discussed with the patient. The patient's left hemithorax was scanned from the back, with the patient in a right lateral decubitus position. Afterthe largest fluid pocket area was marked, the skin was prepped and draped in the usual sterile manner. The area was anesthetized with 2% lidocaine, a 5 F one-step catheter was advanced into the pleuralspace under ultrasound guidance. After completion of drainage, the catheter was removed. There was no evidence of immediate complication. Post procedure chest x-ray is pending. Impression:Successful and uncomplicated ultrasound guided left thoracentesis. Signed: Andrew Foster Verified Date/Time: 07/27/2022 09:22:22 Reading Location: [address] Ultrasound Reading Room Electronically signedby: ANDREW FOSTER MD on 07/27/2022 09:22 AMPOCT-GLUCOSE [id number] 08:22:03 Test Item Value Reference Range Interpretation Comments POC-GLUCOSE METER 116 mg/dL 70-110 H : TESTED A T [facility] 6720 (BEAKER) (test code = [place], 1538) [address]: Beach Attendant/Techni wendi ID = [id number] for Natanael Payan POCT-GLUCOSE [id number] 22:06:39 Test Item Value Reference Range Interpretation Comments POC-GLUCOSE METER 120 mg/dL 70-110 H : [facility] ([facility]ER) (test code = CHYNA Good [facility], 1538) [address]: Beach Attendant/Techni wendi ID = [id number] for DEBORA HOWARD POCT-GLUCOSE [id number] 17:14:40 Test Item Value Reference Range Interpretation Comments POC-GLUCOSE METER 94 mg/dL 70-110 : TESTED A T [facility] 6720 (BEAKER) (test code = CHYNA Good [facility], 1538) [address]: Beach Attendant/Techni wendi ID = [id number] for Manuel dumont Jennifer CT, CHEST, WITHOUT [id number] 15:58:00Unlisted Reason for Exam - Click Yes and Enter Reason Below->YesUnlisted Reason for Exam->leukocytosis, chest pain post ACB [facility] : 1940 Sex: FFINAL REPORT CT [...] may reflect mild pulmonary edema. Signed: Jayashree Oconnell MDReport Verified Date/Time: 07/26/2022 15:58:22 Reading Location: [address] Reading Room POCT-GLUCOSE [id number] 13:40:20 Test Item Value Reference Range Interpretation Comments POC-GLUCOSE METER 117 mg/dL 70-110 H : TESTED A T [facility] 6720 (BEAKER) (test code = [facility], 1538) [address]: Beach Attendant/Techni wendi ID = [id number] for Ok otilio, Jennifer Lactate dehydrogenase (LDH), body [id number] 12:57:42 Test Item Value Reference Range Interpretation Comments LDH, Fluid (test 133 U/L code = 52068-3) JANEEN (test code = Absence of reference JANEEN) range indicates that normals have not been defined.Assay performance has not been validated for this type of specimen. Beach Attendant ID - HANS [facility] SacramentoLactate dehydrogenase (LDH), body [id number] 12:57:42 Test Item Value Reference Range Interpretation Comments LDH, Fluid (test 133 U/L code = 77442-7) JANEEN (test code = Absence of reference JANEEN) range indicates that normals have not been defined.Assay performance has not been validated for this type of specimen. Beach Attendant ID - HANS [facility] SacramentoLACTATE DEHYDROGENASE (LDH), [facility] [id number] 12:57:42 Test Item Value Reference Range Interpretation Comments LACTATE DEHYDROGENASE FLUID (BEAKER) 133 U/L (test code = 634) Absence of reference range indicates that normals have not been defined.Assay performance has not been validated for this type of specimen.Beach Attendant ID - HANSProtein, body [id number] 12:54:17 Test Item Value Reference Range Interpretation Comments Protein, Fluid (test 2.3 g/dL code = 2881-1) JANEEN (test code = Absence of reference JANEEN) range indicates that normals have not been defined.Assay performance has not been validated for this type of specimen. Beach Attendant ID - HANS [facility] HospitalProtein, body [id number] 12:54:17 Test Item Value Reference Range Interpretation Comments Protein, Fluid (test 2.3 g/dL code = 2881-1) JANEEN (test code = Absence of reference JANEEN) range indicates that normals have not been defined.Assay performance has not been validated for this type of specimen. Beach Attendant ID - HANS ZUNIGA [facility] HospitalPROTEIN, BODY [id number] 12:54:17 Test Item Value Reference Range Interpretation Comments PROTEIN FLUID (BEAKER) (test code = 2.3 g/dL 579) Absence of reference range indicates that normals have not been defined.Assay performance has not been validated for this type of specimen.Beach Attendant SANTO MAXWELLGlucose, body [id number] 12:54:01 Test Item Value Reference Range Interpretation Comments Glucose, Body Fluid 162 mg/dL (test code = 2344-0) JANEEN (test code = Absence of reference JANEEN) range indicates that normals have not been defined.Assay performance has not been validated for this type of specimen. Beach Attendant ID - HANS [facility] SacramentoGlucose, body [id number] 12:54:01 Test Item Value Reference Range Interpretation Comments Glucose, Body Fluid 162 mg/dL (test code = 2344-0) JANEEN (test code = Absence of reference JANEEN) range indicates that normals have not been defined.Assay performance has not been validated for this type of specimen. Beach Attendant ID - HANS [facility] SacramentoGLUCOSE, BODY [id number] 12:54:01 Test Item Value Reference Range Interpretation Comments GLUCOSE, BODY FLUID (BEAKER) (test 162 mg/dL code = 1528) Absence of reference range indicates that normals have not been defined.Assay performance has not been validated for this type of specimen.Beach Attendant ID - HANSPOCT-GLUCOSE [id number] 09:21:22 Test Item Value Reference Range Interpretation Comments POC-GLUCOSE METER 91 mg/dL 70-110 : TESTED A T [facility] 6720 (BEAKER) (test code = [facility] [place], 1538) [address]: Beach Attendant/Techni wendi ID = [id number] for Okek e, Jennifer (CELLAVISION MANUAL DIFF)2022-07-26 08:07:38 Test Item Value [...] CONCENTRATION Adequate (CELLAVISION)(BEAKER) (test code = 3438) Beach Attendant ID - Helena OverholtUser comments: Slide comments:CBC W/PLT COUNT & AUTO [id number] 08:07:37 Test Item Value Reference Range Interpretation [...] = 413) RAD, CHEST, 1 VIEW, NON [id number] 08:02:00Reason for exam:->respiratory insufficiencyShould this be performed at the bedside?->Yes [facility] 1940 Sex: FFINAL REPORT RAD, CHEST, 1 VIEW, NON DEPT INDICATION: respiratory insufficiency COMPARISON: Prior day's exam FINDINGS: Portable frontal view of the chest. IMPRESSION: Support Lines: Sternotomy wires. Overlying leads/monitors. Lungs and pleura: Bilateral effusions and adjacent atelectasis, unchanged. No significant pneumothorax. Heart and mediastinum: Stable contours. Additional findings: None. Signed: Tiera Borreroveterans administration medical center Verified Date/Time: 07/26/2022 08:02:08 BASIC METABOLIC [id number] 06:21:14 Test Item Value Reference Range Interpretation [...] not appl icable for dialysis patien ts Beach Attendant ID - MARIO [id number] 06:09:41 Test Item Value Reference Range Interpretation Comments MAGNESIUM (BEAKER) (test code = 2.8 mg/dL 1.6-2.6 H 627) Beach Attendant ID - MARIO [id number] 06:09:41 Test Item Value Reference Range Interpretation Comments PHOSPHORUS (BEAKER) (test code = 5.4 mg/dL 2.3-4.7 H 604) Beach Attendant ID - MARIO LC-REACTIVE [id number] 06:09:41 Test Item Value Reference Range Interpretation Comments C-REACTIVE PROTEIN (BEAKER) (test 5.69 mg/dL 0.00-0.50 H code = 676) Beach Attendant ID - MARIO LB-TYPE NATRIURETIC FACTOR (BNP)2022-07-26 05:59:40 Test Item Value Reference Range Interpretation Comments B-TYPE NATRIURETIC PEPTIDE (BEAKER) 805 pg/mL 0-100 H (test code = 700) Beach Attendant ID - MARIO LPOCT-GLUCOSE [id number] 21:02:00 Test Item Value Reference Range Interpretation Comments POC-GLUCOSE METER 122 mg/dL 70-110 H : TESTED A T [facility] 6720 (BEAKER) (test code = CHYNA Good [facility], 1538) 13021: Beach Attendant/Techni wendi ID = [id number] for MA RTIN, DEBORA RAD, CHEST, 1 VIEW, NON [id number] 20:12:00Reason for exam:->evaluate progression of left ptx post left thoracentesisShould this be performed at the bedside?->Yes[facility] : 1940 Sex: FFINAL REPORT CLINICAL INDICATION: evaluate progression of left ptx post left thoracentesis Comparison: 07/25/2022 at 1345 hours The cardiomediastinal contours are stable. Central pulmonary vascular congestion and bilateral parenchymal and pleural opacities are unchanged. The previously seen trace left apical pneumothorax is no longer evident. Signed: Brody Ordoñezst. louis va medical center Verified Date/Time: 07/25/2022 20:12:38 POCT-GLUCOSE [id number] 16:48:40 Test Item Value Reference Range Interpretation Comments POC-GLUCOSE METER 134 mg/dL 70-110 H : TESTED A T [facility] 6720 (JENNIFERANNABELLA) (test code = [facility] [place], 1538) [address]: Beach Attendant/Techni wendi ID = [id number] for JANAY STEWARD RAD, CHEST, 1 VIEW, NON [id number] 16:34:00Reason for exam:->left side thoracentesisShould this be performed at the bedside?->Yes [facility] 1940 Sex: FAddendum BeginsREPORT STATUS:A Addendum: Small [...] Borrero Verified Date/Time: 07/25/2022 16:10:15 Limited 2D [id number] 16:26:31Ejection FractionSLEH ECHO HEARTLAB MKCKESSON [facility] Ech[facility] 2022-07-25 16:26:31Ejection FractionSLEH ECHO HEARTLAB MKCKESSON [facility] HospitalBody fluid cell count with inyrakiipxys4303-18-07 15:51:00 Test Item Value Reference Range Interpretation Comments Appearance (test code = Bloody Clear A 9335-1) Color (test code = Red Colorless, Straw A 6824-7) RBCs (test code = 040160 See_Comment H [Automate d message] 04661-9) The system Colingo generated this result transmit salvador reference range : <=1 /cu mm. The reference range was not used to interpret this result as normal/abnormal . Adjusted WBC Count 1873 See_Comment H [Automat ed message] (test code = 11028-0) The sy stem which generated this result transmit salvador reference range : <=5 /cu mm. The reference range was not used to interpret this result as normal/abnormal . Adjusted lining 56 See_Comment H [Automated message] cells/Others (test code The system which = 29198-3) generated this result transmit salvador reference range : <=1 /cu mm. The reference range was not used to interpret this result as normal/abnormal . % Segs (test code = 7 % 73992-7) % Lymphs (test code = 15 % 01472-4) % Monos (test code = 77 % 45842-7) % Eos (test code = 1 % 66989-6) % Baso (test code = 0 % 43496-6) Container Body Fluid EDTA Tube (test code = 2873) Lab Interpretation Abnormal (test code = 03849-1) [facility] SacramentoBody fluid cell count with [id number] 15:51:00 Test Item Value Reference Range Interpretation Comments Appearance (test code = Bloody Clear A 9335-1) Color (test code = Red Colorless, Straw A 6824-7) RBCs (test code = 239380 See_Comment H [Automate d message] 92099-6) The system whic h generated this result transmit salvador reference range : <=1 /cu mm. The reference range was not used to interpret this result as normal/abnormal . Adjusted WBC Count 1873 See_Comment H [Automat ed message] (test code = 94294-5) The sy stem which generated this result transmit salvador reference range : <=5 /cu mm. The reference range was not used to interpret this result as normal/abnormal . Adjusted lining 56 See_Comment H [Automated message] cells/Others (test code The system which = 43103-4) generated this result transmit salvador reference range : <=1 /cu mm. The reference range was not used to interpret this result as normal/abnormal . % Segs (test code = 7 % 65688-0) % Lymphs (test code = 15 % 60965-4) % Monos (test code = 77 % 18477-2) % Eos (test code = 1 % 85169-9) % Baso (test code = 0 % 43150-9) Container Body Fluid EDTA Tube (test code = 2873) Lab Interpretation Abnormal (test code = 88215-8) [facility] SacramentoBODY FLUID CELL COUNT WITH [id number] 15:51:00 Test Item Value Reference Range Interpretation Comments APPEARANCE FLUID Bloody Clear A (BEAKER) (test code = 510) COLOR FLUID (BEAKER) Red Colorless, Straw A (test code = 511) RBC FLUID (BEAKER) 404928 /cu mm See_Comment H [Automa salvador (test [...] (BEAKER) (test code = 2873) BASIC METABOLIC [id number] 15:39:45 Test Item Value Reference Range Interpretation [...] not appl icable for dialysis patien ts Beach Attendant ID - SANTI M(CELLAVISION MANUAL DIFF)2022-07-25 12:17:05 [...] CONCENTRATION Adequate (CELLAVISION)(BEAKER) (test code = 3438) Beach Attendant ID - Helena OverholtUser comments: Slide comments:CBC W/PLT COUNT & AUTO [id number] 12:17:04 Test Item Value Reference Range Interpretation [...] H (BEAKER) (test code = 413) POCT-GLUCOSE [id number] 11:33:13 Test Item Value Reference Range Interpretation Comments POC-GLUCOSE METER 170 mg/dL 70-110 H : [facility] (BEAKER) (test code = [place], 1538) [address]: Beach Attendant/Techni wendi ID = [id number] for JANAY STEWARD PT/[id number] 10:33:28 Test Item Value Reference Range Interpretation [...] mechanical heart valves.RAD, CHEST, 1 VIEW, NON [id number] 07:44:00Reason for exam:->respiratory insufficiencyShould this be performed at the bedside?->Yes [facility] : 1940 Sex: FFINAL REPORT RAD, CHEST, 1 VIEW, NON DEPT INDICATION: respiratory insufficiency COMPARISON: Prior day's exam FINDINGS: Portable frontal view of the chest. IMPRESSION: Support Lines: Sternotomy wires. Lungs and pleura: Moderate left effusion and bilateral lower lobe airspace disease are unchanged. No significant pneumothorax. Heart and mediastinum: Normal contours. Additional findings: None. Signed: Tiera Borrero Verified Date/Time: 07/25/2022 07:44:36 [id number] 07:08:58 Test Item Value Reference Range Interpretation Comments CORTISOL, TOTAL (BEAKER) (test 20.8 ug/dL 3.7-19.4 H code = 2755) Beach Attendant ID - SANTI MBASIC METABOLIC [id number] 07:05:13 Test Item Value Reference Range Interpretation [...] not appl icable for dialysis patien ts Beach Attendant ID - SANTI [id number] 07:00:19 Test Item Value Reference Range Interpretation Comments MAGNESIUM (BEAKER) (test code = 2.7 mg/dL 1.6-2.6 H 627) Beach Attendant ID - SANTI [id number] 07:00:19 Test Item Value Reference Range Interpretation Comments PHOSPHORUS (BEAKER) (test code = 5.1 mg/dL 2.3-4.7 H 604) Beach Attendant ID - SANTI MPOCT-GLUCOSE [id number] 06:57:33 Test Item Value Reference Range Interpretation Comments POC-GLUCOSE METER 140 mg/dL 70-110 H : TESTED A T [facility] 6720 (BEAKER) (test code = [facility] [employer] [facility], 1538) 26703: Beach Attendant/Techni wendi ID = [id number] for [place] JANAY MIKE POCT-GLUCOSE [id number] 21:04:53 Test Item Value Reference Range Interpretation Comments POC-GLUCOSE METER 183 mg/dL 70-110 H : TESTED A T [facility] 6720 (BEAKER) (test code = [facility] [employer] [facility], 1538) 11859: Beach Attendant/Techni wendi ID = [id number] for GARRISON MIMS BASIC METABOLIC [id number] 18:18:42 Test Item Value Reference Range Interpretation [...] not appl icable for dialysis patien ts Beach Attendant ID - BSPOCT-GLUCOSE [id number] 16:46:26 Test Item Value Reference Range Interpretation Comments POC-GLUCOSE METER 176 mg/dL 70-110 H : TESTED A T [facility] 6720 (JENNIFERANNABELLA) (test code = CHYNA Good [facility], 1538) 34853: Beach Attendant/Techni wendi ID = [id number] for Do Jerome lin RAD, CHEST, 1 VIEW, NON [id number] 12:21:00Reason for exam:->respiratory insufficiencyShould this be performed at the bedside?->Yes [facility] : 1940 Sex: FFINAL REPORT CLINICAL HISTORY: respiratory insufficiency TECHNIQUE: 1 view of the chest. COMPARISON: 07/23/2022 IMPRESSION: Diffuse left hemithorax pleural-parenchymal opacity unchanged. Right lung base airspace opacity and small right pleural effusion unchanged. The cardiomediastinal silhouette is magnified by technique with sternotomy wires. Signed: Cory Bankseport VerifiedDate/Time: 07/24/2022 12:21:43 Reading Location: [address] Reading Room Electronicallysigned by: CORY BANKS M.D. on 07/24/2022 12:21 PMPOCT-GLUCOSE [id number] 11:45:51 Test Item Value Reference Range Interpretation Comments POC-GLUCOSE METER 220 mg/dL 70-110 H : TESTED A T [facility] 6720 (BEAKER) (test code = CHYNA Good [facility], 1538) 80812: Beach Attendant/Techni wendi ID = [id number] for Jerome Zimmerman LACTIC ACID, [id number] 11:44:34 Test Item Value Reference Range Interpretation Comments LACTATE BLOOD VENOUS 1.07 mmol/L 0.50-2.20 Specime n slightly (2) (BEAKER) (test hemolyzed code = 2872) Beach Attendant ID - SANTI MVITAMIN [id number] 11:13:20 Test Item Value Reference Range Interpretation Comments VITAMIN B12 (BEAKER) (test code = 315 pg/mL 213-816 774) Beach Attendant ID - SANTI MTSH/FREE T4 IF [id number] 11:13:20 Test Item Value Reference Range Interpretation Comments THYROID STIMULATING HORMONE 3.476 uIU/mL 0.350-4.940 (BEAKER) (test code = 772) Beach Attendant ID - SANTI MCREATINE KINASE (CK)2022-07-24 10:45:30 Test Item Value Reference Range Interpretation Comments CREATINE KINASE TOTAL (BEAKER) (test 65 U/L 29-200 code = 380) Beach Attendant ID - SANTI MPOCT-GLUCOSE [id number] 08:26:30 Test Item Value Reference Range Interpretation Comments POC-GLUCOSE METER 146 mg/dL 70-110 H : TESTED A T [facility] 6720 (BEAKER) (test code = [place], 1538) [address]: Beach Attendant/Techni wendi ID = [id number] for Jerome Zimmerman HEPATIC FUNCTION [id number] 05:32:43 Test Item Value Reference Range Interpretation [...] (test code = 10 U/L 6-55 347) Beach Attendant ID - SANTI [id number] 05:32:43 Test Item Value Reference Range Interpretation Comments LIPASE (BEAKER) (test code = 749) 37 U/L 8-78 Beach Attendant ID - SANTI MBASIC METABOLIC [id number] 05:32:42 Test Item Value Reference Range Interpretation [...] (test code = 697) EGFR (BEAKER) 34 Interpretatio n of eGFR (test code = mL/min/1.73 values Stage De scription 1092) sq m Result G1 Cecilia l or high >=90 G2 Mildly decreased 60-89 G3a Mildl y to moderately 45- 59 G3b Moderately to s everely 30-44 G4 Severl y decreased 15-29 G5 Kidney failure <15Reported eGF R is based on the CKD-EPI 2020 equation that d oes not use a race coefficientEsti mated GFR is not as accur ate as Creatinine Susanne kevon in predicting glom erular filtration rate . Estimated GFR is not appl icable for dialysis patien ts Beach Attendant ID - SANTI [id number] 05:32:42 Test Item Value Reference Range Interpretation Comments MAGNESIUM (BEAKER) (test code = 2.3 mg/dL 1.6-2.6 627) Beach Attendant ID - SANTI [id number] 05:32:42 Test Item Value Reference Range Interpretation Comments PHOSPHORUS (BEAKER) (test code = 3.6 mg/dL 2.3-4.7 604) Beach Attendant ID - SANTI [id number] 05:27:40 Test Item Value Reference Range Interpretation Comments FERRITIN (BEAKER) (test code = 291.58 ng/mL 5.00-275.00 H 361) Beach Attendant ID - SANTI YUDI, TIBC, % SAT. (WITHOUT FERRITIN)2022-07-24 05:06:51 Test Item Value Reference Range Interpretation Comments IRON (BEAKER) (test code = 547) 67.0 ug/dL 40.0-160.0 TOTAL IRON BINDING CAPACITY 261 ug/dL 250-450 (BEAKER) (test code = 769) IRON % SATURATION (2) (BEAKER) 26 % 20-55 (test code = 2590) Beach Attendant ID - SANTI MCBC W/PLT COUNT & AUTO [id number] 05:02:22 Test Item Value Reference Range Interpretation [...] PERCENT (BEAKER) (test code = 2801) POCT-GLUCOSE [id number] 20:49:56 Test Item Value Reference Range Interpretation Comments POC-GLUCOSE METER 187 mg/dL 70-110 H : TESTED A T [facility] 6720 (BEAKER) (test code = [facility], 1538) [address]: Beach Attendant/Techni wendi ID = [id number] for PE RUEL, GARRISON SODIUM, RANDOM [id number] 19:01:40 Test Item Value Reference Range Interpretation Comments SODIUM URINE (BEAKER) (test code = 29 meq/L 243) Reference Range: No NormalsOperator ID - BSCHLORIDE, RANDOM [id number] 19:01:40 Test Item Value Reference Range Interpretation Comments CHLORIDE URINE (BEAKER) (test code = 51 meq/L 20-330 682) Reference Range: No NormalsOperator ID - BSOSMOLALITY, [id number] 18:56:19 Test Item Value Reference Range Interpretation Comments OSMOLALITY URINE 309 mOsm/kg See_Comment [Automated message] (JUAN F) (test code = The sy stem which 614) generated this result transmitted ref erence range: 50-1,200 mOsm/kg. The reference range was not used to int erpret this result as normal/abnormal . CT, [id number] 18:46:00Unlisted Reason for Exam - Click Yes and Enter Reason Below->NoIs this for enterography?->NoWill this procedure require oral contrast?->Yes [facility] 1940 Sex: FFINAL REPORT ABDOMINAL AND PELVIS [...] with bibasilar subsegmental atelectasis. Signed: Luis Jones MDReport Verified Date/Time: 07/23/2022 18:46:32 Reading Location: [facility] C0Y CT Body Reading Room OSMOLALITY, [id number] 18:36:38 Test Item Value Reference Range Interpretation Comments OSMOLALITY, SERUM (BEAKER) (test 269 mOsm/kg 275-295 L code = 615) POCT-GLUCOSE [id number] 17:05:11 Test Item Value Reference Range Interpretation Comments POC-GLUCOSE METER 170 mg/dL 70-110 H : TESTED A T [facility] 6720 (BEAKER) (test code = [place], 1538) [address]: Beach Attendant/Techni wendi ID = [id number] for Am melo Natanael U/S, [id number] 14:53:00Laterality?->LeftReason for exam:->pl effusionLabs to be Ordered:->No Labs Needed [facility] 1940 Sex: FFINAL REPORT Ultrasound guided left thoracentesis. Clinical History: Left pleural effusion. Modality: Ultrasound. Sedation: None. Radiologic Technician: Cherri Joyce PA-C Tower Technician: None. Estimated Blood Loss: 1cc Specimen: 600 [...] ltrasound guided left thoracentesis. Signed: Trupti Crespo MDReport Verified Date/Time: 07/23/2022 14:53:22 Reading Location: [address] Ultrasound Reading Room RAD, CHEST, 1 VIEW, NON [id number] 12:45:00Reason for exam:->respiratory insufficiencyShould this be performed at the bedside?->Yes [facility] : 1940 Sex: FFINAL REPORT CLINICAL HISTORY: respiratory insufficiency TECHNIQUE: 1 view of the chest. COMPARISON: 07/22/2022 IMPRESSION: Diffuse left hemithorax pleural-parenchymal opacity unchanged. Right lung base airspace opacity and small right pleural effusion unchanged. The cardiomediastinal silhouette is magnified by technique with sternotomy wires. Signed: Cory Banks MDReport VerifiedDate/Time: 07/23/2022 12:45:15 Reading Location: [address] Reading Room Electronicallysigned by: CORY BANKS M.D. on 07/23/2022 12:45 PMPOCT-GLUCOSE [id number] 11:49:49 Test Item Value Reference Range Interpretation Comments POC-GLUCOSE METER 194 mg/dL 70-110 H : TESTED A T [facility] 6720 (BEAKER) (test code = [facility], 1538) 468[address]: Beach Attendant/Techni wendi ID = [id number] for Am ador, Natanael POCT-GLUCOSE [id number] 08:20:05 Test Item Value Reference Range Interpretation Comments POC-GLUCOSE METER 160 mg/dL 70-110 H : TESTED A T [facility] 6720 (BEAKER) (test code = [facility], 1538) [address]: Beach Attendant/Techni wendi ID = [id number] for Am ador, Natanael [id number] 06:35:51 Test Item Value Reference Range Interpretation Comments MAGNESIUM (BEAKER) (test code = 2.1 mg/dL 1.6-2.6 627) Beach Attendant ID - SANTI [id number] 06:35:51 Test Item Value Reference Range Interpretation Comments PHOSPHORUS (BEAKER) (test code = 3.0 mg/dL 2.3-4.7 604) Beach Attendant ID - SANTI MBASIC METABOLIC [id number] 06:35:50 Test Item Value Reference Range Interpretation [...] not appl icable for dialysis patien ts Beach Attendant ID - SANTI MCBC W/PLT COUNT & AUTO [id number] 06:07:39 Test Item Value Reference Range Interpretation [...] PERCENT (BEAKER) (test code = 2801) POCT-GLUCOSE [id number] 21:08:30 Test Item Value Reference Range Interpretation Comments POC-GLUCOSE METER 138 mg/dL 70-110 H : TESTED A T [facility] 6720 (BEAKER) (test code = [facility], 153) [address]100: Beach Attendant/Techni wendi ID = [id number] for PE RALES, GARRISON POCT-GLUCOSE [id number] 16:43:37 Test Item Value Reference Range Interpretation Comments POC-GLUCOSE METER 137 mg/dL 70-110 H : TESTED A T [facility] 6720 (BEAKER) (test code = [facility], 153) 38910: Beach Attendant/Techni wendi ID = [id number] for HU NTER, HIWITHA RAD, CHEST, 1 VIEW, NON [id number] 13:07:00Reason for exam:->respiratory insufficiencyShould this be performed at the bedside?->Yes [facility] 1940 Sex: FFINAL REPORT CLINICAL HISTORY: respiratory insufficiency TECHNIQUE: 1 view of the chest. COMPARISON: 07/21/2022 IMPRESSION: Diffuse left asymmetric airspace opacities and left pleuraleffusion are grossly unchanged. The cardiomediastinal silhouette is magnified by technique with sternotomy wires. Signed: Cory Banks Verified Date/Time: 07/22/2022 13:07:28 Reading Location: [address] Reading Room POCT-GLUCOSE [id number] 11:37:00 Test Item Value Reference Range Interpretation Comments POC-GLUCOSE METER 235 mg/dL 70-110 H : TESTED A T [place] [address] (BEAKER) (test code = [facility], 1538) [address]: Beach Attendant/Techni wendi ID = [id number] for CO RTEZ, LOBO POC ACTIVATED CLOTTING [id number] 08:38:34 Test Item Value Reference Range Interpretation Comments Activated Clotting Time 121 sec : 74 -137 seconds, (test code = 3184-9) Baselin e: TESTED AT [facility] [address] [place] [address] [facility], 770 30: Beach Attendant/Techni wendi ID = [id number] for Ga Jessy rush [facility] [place]P[facility] ACTIVATED CLOTTING [id number] 08:38:34 Test Item Value Reference Range Interpretation Comments Activated Clotting Time 121 sec : 74 -137 seconds, (test code = 3184-9) Baselin e: TESTED AT [address], [address]: Beach Attendant/Techni wendi ID = [id number] for Ga rciaJessy [facility] [place]POCT-[id number] 08:38:34 Test Item Value Reference Range Interpretation Comments ACTIVATED CLOTTING TIME 121 sec : 74 -137 seconds, (BEAKER) (test code = Ziggyi ne: TESTED AT 441) [address], 7[address]: Beach Attendant/Techni wendi ID = [id number] for Ga rcJessy russ [id number] 08:38:33 Test Item Value Reference Range Interpretation Comments ACTIVATED CLOTTING TIME 491 sec : 74 -137 seconds, (BEAKER) (test code = Baseli ne: TESTED AT 441) [address], 7[address]: Beach Attendant/Techni wendi ID = [id number] for Ga rcJessy russ [id number] 08:38:33 Test Item Value Reference Range Interpretation Comments ACTIVATED CLOTTING TIME 607 sec : 74 -137 seconds, (BEAKER) (test code = Ziggyi ne: TESTED AT 441) [address], 7[address]: Beach Attendant/Techni wendi ID = [id number] for Ga rcJessy russ [id number] 08:38:33 Test Item Value Reference Range Interpretation Comments ACTIVATED CLOTTING TIME 584 sec : 74 -137 seconds, (BEAKER) (test code = Ziggyi ne: TESTED AT 441) [address], 7[address]: Beach Attendant/Techni wendi ID = [id number] for Jessy Jimenez POCT-GLUCOSE [id number] 08:38:27 Test Item Value Reference Range Interpretation Comments POC-GLUCOSE METER 151 mg/dL 70-110 H : TESTED A T [place] [address] (BEAKER) (test code = [facility], 153) [address]: Beach Attendant/Techni wendi ID = [id number] for GR DENNYS [place] POCT-GLUCOSE [id number] 08:23:06 Test Item Value Reference Range Interpretation Comments POC-GLUCOSE METER 127 mg/dL 70-110 H : Not[facility] RN/MD: [facility] (test code = TESTED AT [place] [address] 1538) [facility], [address]: Beach Attendant/Techni wendi ID = [id number] for Mo rris, Umu POCT-GLUCOSE [id number] 08:23:05 Test Item Value Reference Range Interpretation Comments POC-GLUCOSE METER 122 mg/dL 70-110 H : TESTED A T [facility] 67[address] ([facility]) (test code = [facility], 1537) [address]: Beach Attendant/Techni wendi ID = [id number] for DO RAMSAYDecember POCT-GLUCOSE [id number] 08:23:05 Test Item Value Reference Range Interpretation Comments POC-GLUCOSE METER 177 mg/dL 70-110 H : Notified RN/MD: ([facility]) (test code = TESTED AT [facility] 20 1537) [facility], [address]: Beach Attendant/Techni wendi ID = [id number] for Mo rris, Umu POCT-GLUCOSE [id number] 08:23:05 Test Item Value Reference Range Interpretation Comments POC-GLUCOSE METER 131 mg/dL 70-110 H : TESTED A T [facility] [address] ([facility]) (test code [facility], = 1538) [address]: Beach Attendant/Techni wendi ID = [id number] for Giancarlo s (contract), Jeovany istine POCT-GLUCOSE [id number] 08:23:05 Test Item Value Reference Range Interpretation Comments POC-GLUCOSE METER 97 mg/dL 70-110 : TESTED A T [facility] [address] ([facility]) (test code = [facility], 1537) [address]: Beach Attendant/Techni wendi ID = [id number] for Sir Igor Rosado POCT-GLUCOSE [id number] 08:23:04 Test Item Value Reference Range Interpretation Comments POC-GLUCOSE METER 141 mg/dL 70-110 H : TESTED A T [facility] [address] ([facility]) (test code [facility], = 1538) [address]: Beach Attendant/Techni wendi ID = [id number] for REINALDO BURT POCT-GLUCOSE [id number] 07:27:58 Test Item Value Reference Range Interpretation Comments POC-GLUCOSE METER 157 mg/dL 70-110 H : TESTED A T [facility] [address] ([facility]) (test code = [facility], 153) [address]: Beach Attendant/Techni wendi ID = [id number] for ERIN MAYS [id number] 06:25:11 Test Item Value Reference Range Interpretation Comments MAGNESIUM (BEAKER) (test code = 2.1 mg/dL 1.6-2.6 627) Beach Attendant ID - SANTI [id number] 06:25:11 Test Item Value Reference Range Interpretation Comments PHOSPHORUS (BEAKER) (test code = 2.7 mg/dL 2.3-4.7 604) Beach Attendant ID - SANTI MBASIC METABOLIC [id number] 06:25:10 Test Item Value Reference Range Interpretation [...] not appl icable for dialysis patien ts Beach Attendant ID - SANTI MCBC W/PLT COUNT & AUTO [id number] 05:58:05 Test Item Value Reference Range Interpretation [...] PERCENT (BEAKER) (test code = 2801) POCT-GLUCOSE [id number] 22:51:01 Test Item Value Reference Range Interpretation Comments POC-GLUCOSE METER 200 mg/dL 70-110 H : TESTED A T [facility] 6720 (JUAN F) (test code = [facility], 1538) 79[address]: Beach Attendant/Techni wendi ID = [id number] for Erin Dominguez POCT-GLUCOSE [id number] 17:48:48 Test Item Value Reference Range Interpretation Comments POC-GLUCOSE METER 150 mg/dL 70-110 H : TESTED A T [facility] 6720 (JUAN F) (test code = [facility], 1538) [address]: Beach Attendant/Techni wendi ID = [id number] for Sujit Diana RAD, ABDOMEN/KUB, 1 VIEW [id number] 14:17:00Reason for exam:->interval changeShould this be performed at the bedside?->Yes [facility] 1940 Sex: FFINAL REPORT TECHNIQUE: RAD, ABDOMEN/KUB, 1 VIEW AP INDICATION: interval change. COMPARISON: 07/20/2022 FINDINGS:Decreased in prominence of central small bowel loops. Mild gaseous distention of stomach, as before. Supine radiographs are insensitive for detection of free intraperitoneal air. IMPRESSION:Mild gaseous distention of stomach. Otherwise improvement/resolution of previously noted dilated gas-filled bowel within the central abdomen. Signed: Rik Richey [facility] Verified Date/Time: 07/21/2022 14:17:54 POCT-GLUCOSE METER 2022-07-21 12:01:45 Test Item Value Reference Range Interpretation Comments POC-GLUCOSE METER 158 mg/dL 70-110 H : TESTED A T [facility] 6720 (BEAKER) (test code = [facility], 1538) [address]: Beach Attendant/Techni wendi ID = [id number] for Sa ntos, Domitila RAD, CHEST, 1 VIEW, NON [id number] 09:52:00Reason for exam:->respiratory insufficiencyShould this be performed at the bedside?->Yes [facility] : 1940 Sex: FFINAL REPORT CLINICAL HISTORY: respiratory insufficiency TECHNIQUE: 1 view of the chest. COMPARISON: 07/20/2022 IMPRESSION: Diffuse bilateral airspace opacities and a small pleural effusion are similar appearing. The cardiomediastinal silhouette is magnified by technique with sternotomy wires. Signed: Cory Banks Verified Date/Time: 07/21/2022 09:52:47 Reading Location: [address] Reading Room POCT-GLUCOSE [id number] 08:47:10 Test Item Value Reference Range Interpretation Comments POC-GLUCOSE METER 147 mg/dL 70-110 H : TESTED A T [facility] 6720 (BEAKER) (test code = [facility], 1538) [address]: Beach Attendant/Techni wendi ID = [id number] for Sa ntos, Domitila [id number] 05:04:49 Test Item Value Reference Range Interpretation Comments MAGNESIUM (BEAKER) (test code = 1.8 mg/dL 1.6-2.6 627) Beach Attendant ID Kelly HANCOCK [id number] 05:04:49 Test Item Value Reference Range Interpretation Comments PHOSPHORUS (BEAKER) (test code = 2.1 mg/dL 2.3-4.7 L 604) Beach Attendant ID - SANTI MBASIC METABOLIC [id number] 05:04:48 Test Item Value Reference Range Interpretation [...] not appl icable for dialysis patien ts Beach Attendant ID - SANTI MCBC W/PLT COUNT & AUTO [id number] 04:51:35 Test Item Value Reference Range Interpretation [...] PERCENT (BEAKER) (test code = 2801) POCT-GLUCOSE [id number] 21:14:02 Test Item Value Reference Range Interpretation Comments POC-GLUCOSE METER 167 mg/dL 70-110 H : TESTED A T [facility] 6720 (BEANNABELLA) (test code = [place], 1538) [address]: Beach Attendant/Techni wendi ID = [id number] for BEAU CARTER SE SARS-COV2/RT-PCR ([facility])2022-07-20 17:57:12 Test Item Value Reference Range Interpretation Comments SARS-COV2/RT-PCR Negative Negative The SARS-Co V-2 target (test code = nucleic acids a re not 3417636) detected in thi s specimen. Negative result [...] revoked sooner. Fact Sheet for Healthcare Providers: https://www.[employer] m/Documents/Xpert%20Xpress%20SARS%20CoV-2/Fact%20Sheets/865-4312%74ZRBH-ZLE-9%20 HEALTHCARE%20PROVIDERS%20FACT%20SHEET.pdf Fact Sheet for Healthcare Patients: https://www.[employer]/Documents/Xpert%20Xp ress%20SARS%20CoV-2/Fact%20Sheets/649-3801%09DYYK-BFJ-3%20PATIENT%20FACT%20SHEET .pdfPOCT-GLUCOSE [id number] 16:20:46 Test Item Value Reference Range Interpretation Comments POC-GLUCOSE METER 150 mg/dL 70-110 H : TESTED A T [facility] 6720 ([employer]) (test code = [facility], 1538) [address]: Beach Attendant/Techni wendi ID = [id number] for WI LLIAMS, TYNEKA RAD, CHEST, 1 VIEW, NON [id number] 15:10:00Reason for exam:->s/p left thoraShould this be performed at the bedside?->YesIN US [facility] : 1940 Sex: FFINAL REPORT Chest AP portable COMPARISON STUDY: 07/20/2022 at 0641 hours History provided: Status post left thoracentesis Pleural fluid has been removed on the left. No pneumothorax. Atelectatic change in the left lower lobe. Right lung clear. Signed: Haresh Quinonez Verified Date/Time: 07/20/2022 15:10:13 Reading Location: [facility] Diagnostic Imaging Reading Room - [facility] 1310.12 POCT- GLUCOSE [id number] 12:17:03 Test Item Value Reference Range Interpretation Comments POC-GLUCOSE METER 196 mg/dL 70-110 H : TESTED A T [facility] 6720 (BEAKER) (test code = [facility], 1538) [address]: Beach Attendant/Techni wendi ID = [id number] for WI LLIAMS, TYNEKA RAD, ABDOMEN/KUB, 1 VIEW [id number] 11:58:00Reason for exam:->abdominal pain, distensionShould this be performed at the bedside?->Yes [facility] : 1940 Sex: FFINAL REPORT CLINICAL [...] is a gastric stimulator. Signed: Cory Banks MDReport Verified Date/Time: 07/20/2022 11:58:53 Reading Location: [address] Reading Room RAD, CHEST, 1 VIEW, NON [id number] 09:34:00Reason for exam:->respiratory insufficiencyShould this be performed at the bedside?->[facility] [place] : 1940 Sex: FFINAL REPORT CHEST AP PORTABLE Comparison exam: 07/19/2022 History provided: Respiratory insufficiency Heart size normal. Pleural effusion remains on the left with superimposed basilar atelectasis. Right lung clear. Normal vascularity. Signed: Haresh Quinonez Verified Date/Time: 07/20/2022 09:34:16 Reading Location: [facility] Diagnostic Imaging Reading Room - [facility] 1.310.12 PT/APTT 2022-07-20 09:21:53 Test Item Value Reference Range Interpretation Comments PROTIME (BEAKER) (test 15.0 seconds 11.9-14.2 H code = 759) INR (BEAKER) (test 1.21 See_Comment [Automat ed code = 370) message] The sy [employer] which generated this result transmitted reference range [...] 2.5-3.5 for patients with mechanical heart valves.PROTHROMBIN TIME/[id number] 09:21:10 Test Item Value Reference Range Interpretation Comments PROTIME (BEAKER) 15.0 seconds 11.9-14.2 H (test code = 759) INR (BEAKER) (test 1.21 See_Comment [Automat ed message] code = 370) The system [employer] generated this result transmitted ref erence range: <=5.90. The reference range was not used to int erpret this result as normal/abnormal . RECOMMENDED COUMADIN/WARFARIN INR THERAPY RANGESSTANDARD DOSE: 2.0 - 3.0 Includes: PROPHYLAXIS for venous thrombosis, systemic embolization; TREATMENT for venous thrombosis and/or pulmonary embolus.HIGH RISK: Target INR is 2.5-3.5 for patients with mechanical heart valves.POCT-GLUCOSE [id number] 07:51:21 Test Item Value Reference Range Interpretation Comments POC-GLUCOSE METER 134 mg/dL 70-110 H : [facility] ([facility]ER[facility] (test code = [place], 1538) [address]: Beach Attendant/Techni wendi ID = [id number] for JANAY STEWARD 2D Echo W/Doppler(CW/PW/Color)2022-07-20 07:45:42Ejection FractionSLEH ECHO HEARTLAB [facility] W/Doppler(CW/PW/Color)2022-07-20 07:45:42Ejection FractionSLEH ECHO HEARTLAB [facility]2022-10-24 05:34:20 Test Item Value Reference Range Interpretation Comments MAGNESIUM (BEAKER) 1.9 mg/dL 1.6-2.6 Specimen slightly (test code = 627) hemolyzed Beach Attendant ID - MARIO [id number] 05:34:20 Test Item Value Reference Range Interpretation Comments PHOSPHORUS (BEAKER) 2.4 mg/dL 2.3-4.7 Specimen slightly (test code = 604) hemolyzed Beach Attendant ID - MARIO LBASIC METABOLIC [id number] 05:34:20 Test Item Value Reference Range Interpretation [...] not appl icable for dialysis patien ts Beach Attendant ID - PIAYA LCBC W/PLT COUNT & AUTO [id number] 05:07:23 Test Item Value Reference Range Interpretation [...] PERCENT (BEAKER) (test code = 2801) POCT-GLUCOSE [id number] 20:41:17 Test Item Value Reference Range Interpretation Comments POC-GLUCOSE METER 166 mg/dL 70-110 H : TESTED A T [facility] 6720 (BEAKER) (test code = [facility], 1538) [address]: Beach Attendant/Techni wendi ID = [id number] for TOMMY VIVIENNE YURIDIA POCT-GLUCOSE [id number] 16:15:03 Test Item Value Reference Range Interpretation Comments POC-GLUCOSE METER 147 mg/dL 70-110 H : TESTED A T [facility] 6720 (BEAKER) (test code = [facility], 1538) [address]: Beach Attendant/Techni wendi ID = [id number] for GIANLUCA SWAN POCT-GLUCOSE [id number] 11:35:02 Test Item Value Reference Range Interpretation Comments POC-GLUCOSE METER 204 mg/dL 70-110 H : TESTED A T [facility] 6720 (BEAKER) (test code = [facility], 1538) [address]87: Beach Attendant/Techni wendi ID = [id number] for ZA NAI BOWIENDLalito RAD, CHEST, 1 VIEW, NON [id number] 09:37:00Reason for exam:->respiratory insufficiencyShould this be performed at the bedside?->Yes [facility] : 1940 Sex: FFINAL REPORT TECHNIQUE: [...] Rik Richey MDReport Verified Date/Time: 07/19/2022 09:37:22 [id number] 08:25:30 Test Item Value Reference Range Interpretation Comments MAGNESIUM (BEAKER) (test code = 2.1 mg/dL 1.6-2.6 627) Beach Attendant ID - YAHAIRA [id number] 08:25:30 Test Item Value Reference Range Interpretation Comments PHOSPHORUS (BEAKER) (test code = 2.7 mg/dL 2.3-4.7 604) Beach Attendant ID - YAHAIRA GBASIC METABOLIC [id number] 08:25:29 Test Item Value Reference Range Interpretation [...] not appl icable for dialysis patien ts Beach Attendant ID - YAHAIRA GPOCT-GLUCOSE [id number] 07:54:28 Test Item Value Reference Range Interpretation Comments POC-GLUCOSE METER 182 mg/dL 70-110 H : TESTED A T [facility] 6720 ([facility]) (test code = [place], 1538) [address]: Beach Attendant/Techni wendi ID = [id number] for GIANLUCA SWAN OXYGEN SATURATION, [id number] 05:07:45 Test Item Value Reference Range Interpretation Comments O2 SATURATION (MEASURED) (BEAKER) 64.5 % (test code = 1455) CBC W/PLT COUNT & AUTO [id number] 04:38:29 Test Item Value Reference Range Interpretation [...] PERCENT (BEAKER) (test code = 2801) POCT-GLUCOSE [id number] 20:51:45 Test Item Value Reference Range Interpretation Comments POC-GLUCOSE METER 116 mg/dL 70-110 H : TESTED A T [facility] 6720 (BEAKER) (test code = [place], 1538) [address]: Beach Attendant/Techni wendi ID = [id number] for JOYCE LUGO NAKITA POCT-GLUCOSE [id number] 16:49:54 Test Item Value Reference Range Interpretation Comments POC-GLUCOSE METER 136 mg/dL 70-110 H : TESTED A T [facility] 6720 ([facility] [employer]) (test code = CHYNA Good [facility], 1538) [address]: Beach Attendant/Techni wendi ID = [id number] for GIANLUCA SWAN RAD, CHEST, 1 VIEW, NON [id number] 13:17:00Reason for exam:->respiratory insufficiencyShould this be performed at the bedside?->Yes [facility] : 1940 Sex: FFINAL REPORT TECHNIQUE: [...] MDReport Verified Date/Time: 07/18/2022 13:17:43 Reading Location: [address] Transitional Reading Room POCT-GLUCOSE [id number] 11:45:32 Test Item Value Reference Range Interpretation Comments POC-GLUCOSE METER 189 mg/dL 70-110 H : TESTED A T [facility] 6720 (BEAKER) (test code = [facility], 1538) [address]: Beach Attendant/Techni wendi ID = [id number] for GIANLUCA SWAN CBC W/PLT COUNT & AUTO [id number] 11:00:33 Test Item Value Reference Range Interpretation [...] 0.00-1.00 PERCENT (BEAKER) (test code = 2801) [id number] 06:08:27 Test Item Value Reference Range Interpretation Comments PHOSPHORUS (BEAKER) 2.8 mg/dL 2.3-4.7 Specimen slightly (test code = 604) hemolyzed Beach Attendant ID - ADMINBASIC METABOLIC [id number] 06:08:27 Test Item Value Reference Range Interpretation [...] eGFR (test code = mL/min/1.73 values Stage D escription 1092) sq m Result G1 Cecilia l [...] not appl icable for dialysis patien ts Beach Attendant ID - [id number] 06:08:26 Test Item Value Reference Range Interpretation Comments MAGNESIUM (BEAKER) 2.1 mg/dL 1.6-2.6 Specimen slightly (test code = 627) hemolyzed Beach Attendant ID - ADMINHGB/HCT (H&H) - STAT [id number] 05:18:18 Test Item Value Reference Range Interpretation Comments HEMOGLOBIN (BEAKER) (test code = 10.5 GM/DL 12.0-15.0 L 410) HEMATOCRIT (BEAKER) (test code = 31.0 % 36.0-45.0 L 411) OXYGEN SATURATION, [id number] 05:11:27 Test Item Value Reference Range Interpretation Comments O2 SATURATION (MEASURED) (BEAKER) 54.9 % (test code = 1455) GLUCOSE-STAT [id number] 05:11:06 Test Item Value Reference Range Interpretation Comments GLUCOSE RANDOM (BEAKER) (test code 129 mg/dL 70-110 H = 652) SODIUM NA-STAT [id number] 05:11:06 Test Item Value Reference Range Interpretation Comments SODIUM (BEAKER) (test code = 381) 139 meq/L 136-145 POTASSIUM-STAT [id number] 05:11:06 Test Item Value Reference Range Interpretation Comments POTASSIUM (BEAKER) (test code = 4.6 meq/L 3.6-5.5 379) POCT-GLUCOSE [id number] 17:07:29 Test Item Value Reference Range Interpretation Comments POC-GLUCOSE METER 123 mg/dL 70-110 H : Notified RN/MD: (JUAN F) (test code = TESTED AT [place] [address]) [facility], [address]: Beach Attendant/Techni wendi ID = [id number] for Va n, Cherri POCT-GLUCOSE [id number] 16:52:17 Test Item Value Reference Range Interpretation Comments POC-GLUCOSE METER 117 mg/dL 70-110 H : Notified RN/MD: (JUAN F) (test code = TESTED AT [place] [address]) [facility], [address]: Beach Attendant/Techni wendi ID = [id number] for Va n, Cherri POCT-GLUCOSE [id number] 16:29:37 Test Item Value Reference Range Interpretation Comments POC-GLUCOSE METER 145 mg/dL 70-110 H : TESTED A T [place] [address] (JUAN F) (test code = [facility], 1538) [address]: Beach Attendant/Techni wendi ID = [id number] for DO NNDecember POCT-GLUCOSE [id number] 16:18:08 Test Item Value Reference Range Interpretation Comments POC-GLUCOSE METER 128 mg/dL 70-110 H : Notified RN/MD: (JUAN F) (test code = TESTED AT [facility] 67 1538) [facility], [address]: Beach Attendant/Techni wendi ID = [id number] for Mo rris, Umu POCT-GLUCOSE [id number] 16:07:13 Test Item Value Reference Range Interpretation Comments POC-GLUCOSE METER 119 mg/dL 70-110 H : Notified RN/MD: (JUAN F) (test code = TESTED AT [facility] 67 1538) [facility], [address]: Beach Attendant/Techni wendi ID = [id number] for Mo rris, Umu RAD, CHEST, 1 VIEW, NON [id number] 16:01:008CB-27 [facility] : 1940 Sex: FFINAL REPORT TECHNIQUE: [...] exclude. No pulmonary edema. Signed: Rik Richey Verified Date/Time: 07/17/2022 16:01:38 RAD, CHEST, 1 VIEW, NON [id number] 04:34:008CB-27 [facility] : 1940 Sex: FFINAL REPORT RAD, [...] contours. Additional findings: None. Signed: Luis Sylvester Verified Date/Time: 07/16/2022 04:34:15 RAD, CHEST, 2 [id number] 12:21:00Reason for Exam:->preopUN[facility]: [facility] : 1940 Sex: FFINAL REPORT INDICATION: [...] Hutson MDReportVerified Date/Time: 06/25/2022 12:21:23 Reading Location: [address] Reading Room GLOBIN [id number] 11:23:38 Test Item Value Reference Range Interpretation [...] 5.7- 6.4% indicates increased risk for diabetes (prediabetes)."Beach Attendant ID - ADMBASIC METABOLIC [id number] 10:58:27 Test Item Value Reference Range Interpretation [...] not appl icable for dialysis patien ts Beach Attendant ID - SANTI MLIPID [id number] 10:58:27 Test Item Value Reference Range Interpretation [...] Borderline 130-159 High 160-189 Very High >=190 Beach Attendant SANTO HANCOCK MPROTHROMBIN [id number] 10:48:02 Test Item Value Reference Range Interpretation Comments PROTIME (BEAKER) 18.2 seconds 11.9-14.2 H (test code = 759) INR (BEAKER) (test 1.55 See_Comment [Automat ed message] code = 370) The system whic h generated this result transmitted ref erence range: <=5.90. The reference range was not used to int erpret this result as normal/abnormal . RECOMMENDED COUMADIN/WARFARIN INR THERAPY RANGESSTANDARD DOSE: 2.0 - 3.0 Includes: PROPHYLAXIS for venous thrombosis, systemic embolization; TREATMENT for venous thrombosis and/or pulmonary embolus.HIGH RISK: Target INR is 2.5-3.5 for patients with mechanical heart valves.COVID [id number] 10:37:57 Test Item Value Reference Range Interpretation Comments SARS COVID ANTIGEN Negative Negative (test code = 47175-3) JANEEN (test code = JANEEN) The QuickVue SARS Antigen test does not differentiate between SARS-CoV and SARS-CoV-2. The test has been authorized by the FDA under an EUA for use by authorized laboratories. Lab Interpretation Normal (test code = 33888-6) [facility] [id number] 10:37:57 Test Item Value Reference Range Interpretation Comments SARS COVID ANTIGEN Negative Negative (test code = 75490-9) JANEEN (test code = JANEEN) The QuickVue SARS Antigen test does not differentiate between SARS-CoV and SARS-CoV-2. The test has been authorized by the FDA under an EUA for use by authorized laboratories. Lab Interpretation Normal (test code = 63762-4) [facility] [id number] 10:37:57 Test Item Value Reference Range Interpretation Comments SARS COVID ANTIGEN (test code = Negative Negative 54386365) The QuickVue SARS Antigen test does not differentiate between SARS-CoV and SARS-CoV-2.The test has been authorized by the FDA under an EUA for use by authorized laboratories.CBC W/PLT COUNT & AUTO [id number] 10:32:15 Test Item Value Reference Range Interpretation [...] PERCENT (BEAKER) (test code = 2801) SARS-COV2/RT-PCR ([facility])2020-04-02 12:55:00 Test Item Value Reference Range Interpretation Comments SARS-COV2/RT-PCR (test code = Negative Not Detected, Negative 5370289) SARS-COV-2 PERFORMING LAB [facility] (test code = 9686679) Negative result for this test determines that [...] of the Act.Fact Sheet for Healthcare Prov iders:https://www.Tixers/sites/default/files/product/documents/Fact_Sheet_HC _Kwbvqlmsm_Vcvt_KHAZ-SuG-2.pdfFact Sheet for Healthcare Patients:https://www.Faveous.be2/sites/default/files/product/docume nts/Lcrg_Vnuvb_Hbpvdrin_Crot_LWNA-XlA-4.pdfPerforming Laboratory:[place] [id number] [place] [address]
[2022-12-12 19:58] LABS: Hematocrit 40.1 % (36.0-45.0); Lymphocytes % 23.3 % (15.3-44.8); MCV 87.2 fL (80-100); MPV 8.1 fL (7.6-11.3); RBC Red Blood Cell Count 4.59 M/uL (3.86-4.86)
--- NOTE | 2022-12-12 20:01 | RAD REPORT ---
EXAM DESCRIPTION: Marvin Single View12/12/2022 7:22 pm CLINICAL HISTORY: sob COMPARISON: October 2022 FINDINGS: The lungs appear clear of acute infiltrate. The heart is mildly enlarged. Chronic elevation left hemidiaphragm
[2022-12-12 20:04] LABS: Protime INR 1.5
[2022-12-12 20:17] LABS: Potassium 3.3 mEq/L (3.5-5.1); Troponin High Sensitivity 22.5 pg/mL (<58.9)
[2022-12-12] MEDS ORDERED: POTASSIUM 25 MEQ EFFERV TAB ONE (20:48)
[2022-12-12] MEDS ORDERED: FUROSEMIDE 20 MG/ 2ML VIAL ONE ×2 (20:48→22:28)
--- NOTE | 2022-12-12 22:04 | RAD REPORT ---
EXAM DESCRIPTION: USExtrem Venous W Compress Bil12/12/2022 9:41 pm CLINICAL HISTORY: Leg swelling COMPARISON: none FINDINGS: The common femoral, superficial femoral, greater saphenous, popliteal and posterior tibial veins bilaterally are compressible and demonstrate augmentation. Doppler demonstrates good flow. Grayscale, color and spectral analysis performed on all vessels IMPRESSION: No evidence of deep venous thrombosis involving either lower extremity.
--- NOTE | 2022-12-12 22:07 | ER ---
Nurse's Notes [facility] Name: Claudia Myers Age: 82 yrs Sex: Female : 1940 Arrival Date: 12/12/2022 Time: 18:43 Bed 6 Private MD: Diagnosis: Chest pain, unspecified;Unspecified combined systolic (congestive) and diastolic (congestive) heart failure Presentation: 12/12 18:45 Chief complaint: EMS states: son called us out because mom has been SOB. Patient states kr3 " I have been having to breathe to deep and to much for the last few days". I also have pain in between my shoulder blades. Coronavirus screen: Vaccine status: Patient reports receiving the 2nd dose of the covid vaccine. Ebola Screen: Patient denies travel to an Ebola-affected area in the 21 days before illness onset. Initial Sepsis Screen: Does the patient meet any 2 criteria? No. Patient's initial sepsis screen is negative. Does the patient have a suspected source of infection? No. Patient's initial sepsis screen is negative. Risk Assessment: Do you want to hurt yourself or someone else? Patient reports no desire to harm self or others. Onset of symptoms was December 10, 2022. 18:45 Method Of Arrival: EMS: [facility] kr3 18:45 Acuity: KEVIN 3 kr3 Triage Assessment: 18:50 General: Appears in no apparent distress. comfortable, Behavior is calm, cooperative, kr3 appropriate for age. Pain: Complains of pain in thoracic area. EENT: No signs and/or symptoms were reported regarding the EENT system. Neuro: Level of Consciousness is awake, alert, obeys commands, Oriented to person, place, time, situation. Cardiovascular: Patient's skin is warm and dry. Respiratory: Airway is patent Respiratory effort is even, unlabored, Respiratory pattern is regular, symmetrical. GI: No signs and/or symptoms were reported involving the gastrointestinal system. : No signs and/or symptoms were reported regarding the genitourinary system. Derm: No signs and/or symptoms reported regarding the dermatologic system. Musculoskeletal: No signs and/or symptoms reported regarding the musculoskeletal system. Historical: - Allergies: 18:49 Bactrim DS; kr3 - PMHx: 18:49 Atrial Fib; Hypertension; kr3 - PSHx: 18:49 Appendectomy; Cholecystectomy; kr3 - Immunization history:: Adult Immunizations not up to date. - Social history:: Smoking status: Patient denies any tobacco usage or history of. Screenin:23 [facility] ED Fall Risk Assessment (Adult) History of falling in the last 3 months, jb4 including since admission No falls in past 3 months (0 pts) Confusion or Disorientation No (0 pts) Score/Fall Risk Level 0 - 2 = Low Risk Oriented to surroundings, Maintained a safe environment. Abuse screen: Denies threats or abuse. Nutritional screening: No deficits noted. Tuberculosis screening: No symptoms or risk factors identified. Assessment: 19:00 General: Appears in no apparent distress. comfortable, Behavior is calm, cooperative, jb4 appropriate for age. Pain: Denies pain. Neuro: Level of Consciousness is awake, alert, obeys commands, Oriented to person, place, time, situation. Cardiovascular: Patient's skin is warm and dry. Rhythm is atrial fibrillation. Respiratory: Airway is patent Respiratory effort is even, unlabored, Respiratory pattern is regular, symmetrical. GI: No signs and/or symptoms were reported involving the gastrointestinal system. : No signs and/or symptoms were reported regarding the genitourinary system. EENT: No signs and/or symptoms were reported regarding the EENT system. Derm: Skin is intact, Skin is pink, warm \\T\\ dry. Musculoskeletal: Circulation, motion, and sensation intact. Range of motion: intact in all extremities. 20:23 Reassessment: Patient appears in no apparent distress at this time. Patient and/or jb4 family updated on plan of care and expected duration. Pain level reassessed. Patient is alert, oriented x 3, equal unlabored respirations, skin warm/dry/pink. 21:18 Reassessment: Patient appears in no apparent distress at this time. Patient and/or jb4 family updated on plan of care and expected duration. Pain level reassessed. Patient is alert, oriented x 3, equal unlabored respirations, skin warm/dry/pink. 22:00 Reassessment: Patient appears in no apparent distress at this time. Patient and/or jb4 family updated on plan of care and expected duration. Pain level reassessed. Patient is alert, oriented x 3, equal unlabored respirations, skin warm/dry/pink. 23:00 Reassessment: Patient appears in no apparent distress at this time. Patient and/or jb4 family updated on plan of care and expected duration. Pain level reassessed. Patient is alert, oriented x 3, equal unlabored respirations, skin warm/dry/pink. 12/13 00:00 Reassessment: Patient appears in no apparent distress at this time. Patient and/or jb4 family updated on plan of care and expected duration. Pain level reassessed. Patient is alert, oriented x 3, equal unlabored respirations, skin warm/dry/pink. Vital Signs: 12/12 18:45 BP 142 / 96; Pulse 73; Resp 16; Temp 98.2; Pulse Ox 96% on R/A; Weight 79.38 kg; Height kr3 5 ft. 5 in. ; Pain 5/10; 20:23 BP 154 / 51; Pulse 63; Resp 16; Pulse Ox 96% on R/A; jb4 21:18 BP 166 / 73; Pulse 73; Resp 20; Pulse Ox 99% on R/A; jb4 22:15 BP 162 / 82; Pulse 82; Resp 18; Pulse Ox 97% on R/A; jb4 23:15 BP 158 / 57; Pulse 72; Resp 16; Pulse Ox 97% on R/A; jb4 12/13 00:00 BP 185 / 71; Pulse 70; Resp 17 S; Pulse Ox 94% ; jb4 00:46 BP 173 / 55; Pulse 69; Resp 18; Pulse Ox 95% on R/A; jb4 12/12 18:45 Body Mass Index 29.12 (79.38 kg, 165.1 cm) kr3 12/12 18:45 Pain Scale: Adult kr3 ED Course: 12/12 18:43 Patient arrived in ED. hb 18:45 Billy Santos PA is PHCP. cp 18:45 Sage Orozco MD is Attending Physician. cp 18:49 Triage completed. kr3 18:51 Eufemia Ceron RN is Primary Nurse. kr3 18:51 Arm band placed on right wrist. Patient placed in an exam room, on a stretcher. kr3 19:24 XRAY Chest (1 view) In Process Unspecified. EDMS 19:30 Initial lab(s) drawn, by me, sent to lab. Inserted saline lock: 18 gauge in right jb4 antecubital area, using aseptic technique. Blood collected. 19:35 Basic Metabolic Panel Sent. ll1 19:35 CBC with Diff Sent. ll1 19:35 Magnesium Sent. ll1 19:35 NT PRO-BNP Sent. ll1 19:35 PT-INR Sent. ll1 19:35 Troponin HS Sent. ll1 20:23 Patient has correct armband on for positive identification. Bed in low position. Call jb4 light in reach. Side rails up X 1. Client placed on continuous cardiac and pulse oximetry monitoring. NIBP monitoring applied. panel monitor on. 21:43 US Extremity Venous W Compression Avi In Process Unspecified. EDMS 22:05 Parveen Giles MD is Hospitalizing Provider. cp 22:30 SARS RAPID Sent. jb4 22:32 Urine Microscopic Only Sent. pf1 22:32 D-Dimer Sent. pf1 12/13 00:43 No provider procedures requiring assistance completed. Patient admitted, IV remains in jb4 place. Administered Medications: 12/12 21:15 Drug: Potassium PO Effervescent Tablet 50 mEq Route: PO; jb4 21:18 Drug: Furosemide IVP 20 mg Route: IVP; Site: right antecubital; jb4 22:30 Drug: Furosemide IVP 20 mg Route: IVP; Site: right antecubital; jb4 Outcome: 22:06 Decision to Hospitalize by Provider. cp 12/13 00:43 Admitted to Med/surg accompanied by tech, room 202, with chart, Report called to jbAddy Conrad RN Condition: stable Discharge instructions given to patient, Instructed on the need for admit, Demonstrated understanding of instructions. 00:47 Patient left the ED. [facility] [place] Signatures: Dispatcher [employer] EDTN Billy Santos PA PA cp Neli Barragan RN MARK Portillo Monique RN RN jb4 Willy Hosuer RN RN ll1 Eufemia Ceron RN RN kr3 Delmy rojas RN RN pf1 Corrections: (The following items were deleted from the chart) 12/12 18:50 18:49 PMHx: Diabetes - NIDDM; kr3 kr3 20:24 20:23 BP 132 / 71; Pulse 100bpm; Resp 16bpm; Pulse Ox 98%; ll1 ll1 20:59 19:00 General: Appears in no apparent distress. comfortable, Behavior is calm, jb4 cooperative, appropriate for age, ll1 20:59 19:00 Pain: Denies pain. [facility] jb4 20:59 19:00 Neuro: Level of Consciousness is awake, alert, obeys commands, Oriented to jb4 person, place, time, situation, [facility] 20:59 19:00 Cardiovascular: Patient's skin is warm and dry. [facility] jb4 20:59 19:00 Respiratory: Airway is patent Respiratory effort is even, unlabored, Respiratory jb4 pattern is regular, symmetrical, [facility] 20:59 19:00 GI: No signs and/or symptoms were reported involving the gastrointestinal system. jb4 [facility] 20:59 19:00 : No signs and/or symptoms were reported regarding the genitourinary system. [facility] 20:59 19:00 EENT: No signs and/or symptoms were reported regarding the EENT system. [facility] jb4 20:59 19:00 Derm: Skin is intact, Skin is pink, warm \\T\\ dry. [facility]4 20:59 19:00 Musculoskeletal: Circulation, motion, and sensation intact. Range of motion: jb4 intact in all extremities, [facility] 20:59 20:23 Reassessment: Patient appears in no apparent distress at this time. Patient jb4 and/or family updated on plan of care and expected duration. Pain level reassessed. Patient is alert, oriented x 3, equal unlabored respirations, skin warm/dry/pink. [facility] 20:59 20:23 [facility] ED Fall Risk Assessment (Adult) History of falling in the last 3 months, jb4 including since admission No falls in past 3 months (0 pts) Confusion or Disorientation No (0 pts) Score/Fall Risk Level 0 - 2 = Low Risk Oriented to surroundings, Maintained a safe environment, [facility] 20:59 20:23 Abuse screen: Denies threats or abuse. [facility]4 20:59 20:23 Nutritional screening: No deficits noted. [facility]4 20:59 20:23 Tuberculosis screening: No symptoms or risk factors identified. [facility]4 21:00 20:23 Patient has correct armband on for positive identification. Bed in low position. jb4 Call light in reach. Side rails up X 1. [facility] 21:00 20:23 Client placed on continuous cardiac and pulse oximetry monitoring. NIBP jb4 monitoring applied. panel monitor on. ll1 21:00 19:30 Inserted saline lock: 18 gauge in right antecubital area, using aseptic jb4 technique. Blood collected. [facility] : 19:30 Initial lab(s) drawn, by me, sent to lab. [facility] 4 :00 20:23 BP 154 / 51; Pulse 63bpm; Resp 16bpm; Pulse Ox 96%; [facility] jb4
--- NOTE | 2022-12-12 22:07 | EDPHYS ---
Physician Documentation [facility] Name: Claudia Myers Age: 82 yrs Sex: Female : 1940 Arrival Date: 12/12/2022 Time: 18:43 Bed 6 Private MD: ED Physician Sage Orozco HPI: 12/12 18:50 This 82 yrs old Female presents to ER via EMS with complaints of Shortness Of Breath. cp 18:50 The patient has shortness of breath at rest. Onset: The symptoms/episode began/occurred cp yesterday. 18:50 Duration: The symptoms are continuous, and are steadily getting worse. Associated signs cp and symptoms: Pertinent positives: chest pain, upper back pain between shoulder blades. Historical: - Allergies: 18:49 Bactrim DS; kr3 - PMHx: 18:49 Atrial Fib; Hypertension; kr3 - PSHx: 18:49 Appendectomy; Cholecystectomy; kr3 - Immunization history:: Adult Immunizations not up to date. - Social history:: Smoking status: Patient denies any tobacco usage or history of. ROS: 18:55 Constitutional: Negative for body aches, chills, fever, poor PO intake. cp 18:55 Cardiovascular: Positive for chest pain. cp 18:55 Respiratory: Positive for shortness of breath, at rest. 18:55 Eyes: Negative for injury, pain, redness, and discharge. cp 18:55 ENT: Negative for drainage from ear(s), ear pain, sore throat, difficulty swallowing, cp difficulty handling secretions. 18:55 Abdomen/GI: Negative for vomiting, diarrhea, constipation. 18:55 Back: Positive for pain at rest, pain with movement, of the upper back between shoulder blades, Negative for injury or acute deformity, decreased range of motion. 18:55 Skin: Negative for cellulitis, rash. 18:55 Neuro: Negative for altered mental status, dizziness, headache, syncope, weakness. 18:55 All other systems are negative. Exam: 19:00 Constitutional: The patient appears in no acute distress, alert, awake, cp non-diaphoretic, non-toxic, well developed, well nourished. 19:00 Head/Face: Normocephalic, atraumatic. cp 19:00 Eyes: Periorbital structures: appear normal, Conjunctiva: normal, no exudate, no injection, Sclera: no appreciated abnormality, Lids and lashes: appear normal, bilaterally. 19:00 ENT: External ear(s): are unremarkable, Nose: is normal, Mouth: Posterior pharynx: Airway: no evidence of obstruction, patent. 19:00 Chest/axilla: Inspection: normal. 19:00 Cardiovascular: Rate: normal, Rhythm: regular, Edema: is not appreciated, JVD: is not appreciated. 19:00 Respiratory: the patient does not display signs of respiratory distress, Respirations: labored breathing, that is mild, Breath sounds: bronchial sounds, that are mild, are heard diffusely, decreased breath sounds, that are mild, throughout, stridor, is not appreciated. 19:00 Abdomen/GI: Inspection: abdomen appears normal, Palpation: abdomen is soft and non-tender, in all quadrants. 19:00 Back: pain, that is mild, of the upper back between shoulder blades, ROM is normal, CVA tenderness, is absent. 19:00 Skin: cellulitis, is not appreciated, no rash present. 19:00 Neuro: Orientation: to person, place \T\ time. Mentation: is normal, Motor: moves all fours, strength is normal, Sensation: is normal. 19:20 ECG was reviewed by the Attending Physician. cp Vital Signs: 18:45 BP 142 / 96; Pulse 73; Resp 16; Temp 98.2; Pulse Ox 96% on R/A; Weight 79.38 kg; Height kr3 5 ft. 5 in. ; Pain 5/10; 20:23 BP 154 / 51; Pulse 63; Resp 16; Pulse Ox 96% on R/A; jb4 21:18 BP 166 / 73; Pulse 73; Resp 20; Pulse Ox 99% on R/A; jb4 22:15 BP 162 / 82; Pulse 82; Resp 18; Pulse Ox 97% on R/A; jb4 23:15 BP 158 / 57; Pulse 72; Resp 16; Pulse Ox 97% on R/A; jb4 12/13 00:00 BP 185 / 71; Pulse 70; Resp 17 S; Pulse Ox 94% ; jb4 00:46 BP 173 / 55; Pulse 69; Resp 18; Pulse Ox 95% on R/A; jb4 12/12 18:45 Body Mass Index 29.12 (79.38 kg, 165.1 cm) kr3 12/12 18:45 Pain Scale: Adult kr3 MDM: 03 18:45 Patient medically screened. cp 22:05 Data reviewed: vital signs, nurses notes, lab test result(s), EKG, radiologic studies, cp plain films. 22:05 Consideration of Admission/Observation Patient was admitted/placed on observation. cp Management of patient was discussed with the following: Hospitalist: Javid Carlos, [employer] will admit after discussion. I considered the following discharge prescriptions or medication management in the emergency department Medications were administered in the Emergency Department. See MAR. Care significantly affected by the following chronic conditions: Hypertension. 12/12 18:46 Order name: Basic Metabolic Panel; Complete Time: 20:33 cp 12/12 20:34 Interpretation: K 3.3; CO2 34; GLUC 134; CRE 1.27; GFR 42; Reviewed. cp 12/12 18:46 Order name: CBC with Diff; Complete Time: 20:04 cp 12/12 20:04 Interpretation: RDW 16.9. cp 12/12 18:46 Order name: Magnesium; Complete Time: 20:33 cp 12/12 18:46 Order name: NT PRO-BNP; Complete Time: 20:33 cp 12/12 20:34 Interpretation: Abnormal: NT PRO-BNP 1899. cp 12/12 18:46 Order name: PT-INR; Complete Time: 20:33 cp 18 18:46 Order name: Troponin HS; Complete Time: 20:33 cp 12/12 20:35 Order name: D-Dimer; Complete Time: 00:03 cp 12/12 22:04 Order name: Lipase la1 12/12 22:11 Order name: Urine Microscopic Only cp 12/12 22:23 Order name: SARS RAPID la1 12/12 22:33 Order name: Basic Metabolic Panel EDMS 12/12 22:33 Order name: Basic Metabolic Panel EDMS 12/12 22:33 Order name: CBC with Automated Diff EDMS 12/12 22:33 Order name: CBC with Automated Diff EDMS 12/12 22:33 Order name: Lipid Profile EDMS 12/12 22:33 Order name: Lipid Profile EDMS 12/12 22:33 Order name: Urine Dipstick-Ancillary EDMS 12/12 22:38 Order name: Troponin High Sensitivity EDMS 12/12 22:38 Order name: Troponin High Sensitivity EDIA 12/12 22:38 Order name: Troponin High Sensitivity EDIA 12/12 18:46 Order name: XRAY Chest (1 view); Complete Time: 20:04 cp 12/12 20:36 Order name: US Extremity Venous W Compression Avi; Complete Time: 22:05 cp 12/12 18:46 Order name: EKG; Complete Time: 18:47 cp 12/12 22:33 Order name: Heart Healthy EDIA 12/12 18:46 Order name: Cardiac monitoring; Complete Time: 18:51 cp 12/12 18:46 Order name: EKG - Nurse/Tech; Complete Time: 19:35 cp 12/12 18:46 Order name: IV Saline Lock; Complete Time: 19:35 cp 12/12 18:46 Order name: Labs collected and sent; Complete Time: 19:35 cp 12/12 18:46 Order name: O2 Per Protocol; Complete Time: 19:35 cp 12/12 18:46 Order name: O2 Sat Monitoring; Complete Time: 19:35 cp 12/12 22:11 Order name: Urine Dipstick-Ancillary (obtain specimen); Complete Time: 22:30 cp EC:20 Rate is 69 beats/min. Rhythm is irregular. QRS interval is prolonged at 110 msec. QT cp interval is prolonged at 454 msec. T waves are Inverted in leads aVL, aVR. Interpreted by me. Reviewed by me. Administered Medications: 21:15 Drug: Potassium PO Effervescent Tablet 50 mEq Route: PO; jb4 21:18 Drug: Furosemide IVP 20 mg Route: IVP; Site: right antecubital; jb4 22:30 Drug: Furosemide IVP 20 mg Route: IVP; Site: right antecubital; jb4 Disposition Summary: 12/12/22 22:06 Hospitalization Ordered Hospitalization Status: Observation cp Provider: Parveen Giles cp Condition: Stable cp Problem: new cp Symptoms: have improved cp Bed/Room Type: Standard cp Location: Telemetry/MedSurg (observation)(12/13/22 00:15) cg Room Assignment: 202(12/13/22 00:15) cg Diagnosis - Chest pain, unspecified cp - Unspecified combined systolic (congestive) and diastolic (congestive) heart failure cp Forms: - Medication Reconciliation Form cp - SBAR form cp Signatures: Dispatcher [employer] EDMS Javid Carlos, [employer]-C [employer]-Cla1 Billy Santos PA PA cp Erin Higgins, RN RN cg Portillo Monique RN RN jb4 Eufemia Ceron RN RN kr3 Corrections: (The following items were deleted from the chart) 18:50 18:49 PMHx: Diabetes - NIDDM; kr3 kr3 22:38 22:33 Troponin High Sensitivity ordered. EDMS EDMS 22:38 22:33 Troponin High Sensitivity ordered. EDMS EDMS 22:38 22:33 Troponin High Sensitivity ordered. EDMS EDMS 22:41 22:06 Telemetry/MedSurg (observation) cp cg 22:41 22:06 cp cg 12/13 00:15 12/12 22:41 [facility] ER HOLD cg cg 12/13 00:15 12/12 22:41 ERHOLD- cg cg
[2022-12-12] MEDS ORDERED: TRAZODONE 50 MG TABLET PO PRN (22:28)
[2022-12-12] MEDS ORDERED: ONDANSETRON 4 MG/2 ML VIAL IV PRN (22:28)
[2022-12-12 22:33] LABS: Urine Blood Negative (Negative); Urine Glucose Negative (Negative); Urine Protein Negative (Negative); Urine Specific Gravity 1.015 (1.005-1.030)
[2022-12-12 22:42] LABS: Urine Bacteria <20 /HPF (<20); Urine RBC <5 /HPF (None Seen)
--- NOTE | 2022-12-12 22:42 | P.HP ---
Certification for Inpatient Patient admitted to: Observation With expected LOS: <2 Midnights Patient will require the following post-hospital care: None Practitioner: I am a practitioner with admitting privileges, knowledge of patient current condition, hospital course, and medical plan of care. Services: Services provided to patient in accordance with Admission requirements found in Title 42 Section 412.3 of the Code of Federal Regulations Patient History Date of Service: 12/12/22 Reason for admission: Dyspnea, chest pain History of Present Illness: 82-year-old female with history of CAD status post CABG, atrial fibrillation on chronic anticoagulation, hypertension, hyperlipidemia presents to the emergency department for dyspnea, hypertension, chest pain. She reports last couple of days she has been having increased shortness of breath and generalized weakness. She also reports an episode of needlelike pain between her shoulder blades that lasted for a few seconds last night as well as another episode of similar needlelike pain in her chest for a few seconds tonight. She was evaluated in the emergency department her labs were significant for potassium 3.3 bicarb 34 creatinine 1.27 GFR 42 glucose 134 BNP 1899 chest x-ray was performed which showed no acute findings, venous Doppler performed to bilateral lower extremities negative for DVT D-dimer level pending although I believe PE is less likely given that she is on chronic anticoagulation and compliant with it. She denies any recent weight gain, there is no significant lower extremity edema, she denies orthopnea, she is prescribed Lasix at home but denies a known history of CHF. Her most recent echocardiogram was performed on 03/19/2020 and showed normal left ventricular size and function, mitral annular calcification, moderate aortic stenosis, mild tricuspid regurgitation, moderate pulmonary hypertension, mild aortic regurgitation. We will admit under observation for chest pain/dyspnea. Allergies sulfamethoxazole [From Bactrim] Allergy (Verified 11/07/22 01:38) Hives trimethoprim [From Bactrim] Allergy (Verified 11/07/22 01:38) Hives Bactrim DS Allergy (Mild, Uncoded 11/07/22 01:38) Hives Home Medications: Apixaban [Eliquis *] 2.5 mg PO BID 11/07/22 Ascorbic Acid [Vitamin C] 500 mg PO DAILY 11/07/22 Aspirin [Kamila Chewable Aspirin] 81 mg PO DAILY 11/07/22 Atorvastatin Calcium [Lipitor] 80 mg PO BEDTIME 11/07/22 Cholecalciferol (Vitamin D3) [Vitamin D3] 50 mcg PO DAILY 11/07/22 Diphenhydramine HCl [Benadryl] 25 mg PO DAILY 11/07/22 Folic Acid/Multivits-Min [Adult Multivitamin Gummies] 500 mcg PO DAILY 11/07/22 Gabapentin 300 mg PO TID 11/07/22 Losartan Potassium 50 mg PO DAILY 11/07/22 Magnesium Citrate and Oxide [Magnesium] 250 mg PO DAILY 11/07/22 Mecobalamin [B12 Active] 500 mcg PO DAILY 11/07/22 Trazodone [Desyrel*] 50 mg PO DAILY 11/07/22 Cefpodoxime Proxetil 100 mg PO BID #4 tab 11/09/22 Furosemide [Lasix] 20 mg PO DAILY #30 tab 11/09/22 Levothyroxine [Synthroid*] 0.05 mg PO DAILY #30 tab 11/09/22 - Past Medical/Surgical History Diabetic: Yes -: HTN -: A.FIB -: CHF -: NIDDM -: CAD with CABG 2021 -: Hyperlipidemia -: Cholecystectomy -: appendectomy Psychosocial/ Personal History: Lives at home alone. Son lives nearby. - Family History Father -: Heart disease Mother -: Heart disease - Social History Smoking Status: Never smoker Alcohol use: No CD- Drugs: No Caffeine use: Yes Place of Residence: Home Review of Systems 10-point ROS is otherwise unremarkable Respiratory: Shortness of Breath, SOB with Excertion Cardiovascular: Chest Pain Physical Examination - Physical Exam General: Alert, In no apparent distress, Oriented x3 HEENT: Atraumatic, PERRLA, Mucous membr. moist/pink, EOMI, Sclerae nonicteric Neck: Supple, 2+ carotid pulse no bruit, No LAD, Without JVD or thyroid abnormality Respiratory: Clear to auscultation bilaterally, Normal air movement Cardiovascular: No edema, Regular rate/rhythm, Systolic murmur Capillary refill: <2 Seconds Gastrointestinal: Normal bowel sounds, No tenderness Musculoskeletal: No tenderness Integumentary: No rashes Neurological: Normal speech, Normal strength at 5/5 x4 extr, Normal tone, Normal affect - Studies Laboratory Data (last 24 hrs) 12/12/22 19:38: PT 16.5 H, INR 1.50 03/18/23 19:38: WBC 4.40, Hgb 13.4, Hct 40.1, Plt Count 198 12/12/22 19:38: Sodium 137, Potassium 3.3 L, BUN 12, Creatinine 1.27 H, Glucose 134 H, Magnesium 2.0 12/12/22 19:30: Lipase < 6 L Assessment and Plan - Plan Assessment: Chest pain rule out ACS Dyspnea Aortic stenosis Atrial fibrillation on chronic anticoagulation Hypertension Hyperlipidemia Plan: Chest pain rule out ACS Trend troponins, monitor on telemetry, home medications continued including aspirin, statin. Cardiology consulted. Repeat echocardiogram ordered. Chest pain/back pain is atypical, described as needlelike in nature. Patient had CABG in June 2022, two-vessel. Dyspnea No signs of overt volume overload, saturating well on room air but feeling more short of breath with normal. Patient with harsh systolic murmur, last echocardiogram showed moderate aortic stenosis. Repeat echocardiogram ordered, given IV Lasix in ED, will continue oral Lasix for now. Appreciate further per from cardiology. Aortic stenosis Continue as above Atrial fibrillation on chronic anticoagulation Home meds continued including Eliquis Hypertension Hyperlipidemia Home medications continued. DVT PPX: Eliquis continued Code status: Full code Discharge Plan: Home Plan to discharge in: 24 Hours - Advance Directives Does patient have a Living Will: No Does patient have a Durable POA for Healthcare: No - Code Status/Comfort Care Code Status Assessed: Yes (Full code) Critical Care: No Time Spent Managing Pts Care (In Minutes): 70
[2022-12-12 22:50] LABS: SARS-CoV-2 Antigen Rapid Res Negative (Negative)
[2022-12-13] MEDS: ACETAMINOPHEN 500 MG TAB PO PRN ×2 (01:12→16:46)
[2022-12-13] MEDS: LEVOTHYROXINE SOD 0.1 MG TAB PO SCH (05:33)
[2022-12-13] MEDS ORDERED: MORPHINE 2 MG/ML SYR IV PRN (05:38)
[2022-12-13 06:43] LABS: Absolute Lymphocytes (CBC) 1.5 K/uL (0.7-4.9); Lymphocytes % 27.2 % (15.3-44.8); MCV 87.3 fL (80-100); MPV 8.2 fL (7.6-11.3); RBC Red Blood Cell Count 4.12 M/uL (3.86-4.86)
--- NOTE | 2022-12-13 07:06 | P.PN ---
Date of Service: 12/13/22 Subjective: Intermittent pain (needles) and soreness in chest - no change breathing is better; reports getting more winded frequently over past few weeks some pain in left lower chest overnight (needles sensation) ROS: 10 point ROS as noted above, otherwise negative Physical Exam: GEN: Alert, oriented, NAD HEENT: Normal conjunctiva, sclera anicteric CV: irregular rate and rhythm, no edema, IV/ harsh systolic murmur Pulm: Nonlabored respirations on room air at rest ABD: Soft, nontender, nondistended Integumentary: No rashes Neuro: Normal speech, normal affect vitals reviewed Problem List: Chest pain CAD s/p CABG (06/2022) Dyspnea Aortic stenosis, chronic, 07/2022: moderate Chronic Atrial fibrillation, on chronic anticoagulation Hypertension Hyperlipidemia Chest pain Dyspnea Aortic stenosis atypical, significant history / risk factors, CABG 06/2022 initial troponin negative, no ST changes Trend troponins monitor on telemetry Cardiology consulted echocardiogram ordered No signs of overt volume overload, saturating well on room air but reports progressively worsening shortness of breath over the last few weeks Patient with harsh systolic murmur, last echocardiogram (07/18 at OSH) showed moderate aortic stenosis. given IV Lasix in ED, continue oral Lasix Atrial fibrillation on chronic anticoagulation Hypertension Hyperlipidemia continue home medication including aspirin & statin continue home eliquis VTE: home Eliquis Code: Full Dispo: home, ~24 Hours; pending trop, pain, cardiology
[2022-12-13 07:11] LABS: Potassium 3.3 mEq/L (3.5-5.1)
[2022-12-13] MEDS: FUROSEMIDE 40 MG TABLET PO SCH (10:05)
[2022-12-13] MEDS: HYDRALAZINE HCL 25 MG TABLET PO SCH ×3 (10:05→21:00)
[2022-12-13] MEDS: LOSARTAN POTASSIUM 50 MG TABLET PO SCH (10:06)
[2022-12-13] MEDS: GABAPENTIN 300 MG CAP PO SCH ×3 (10:07→20:56)
[2022-12-13] MEDS: ASPIRIN EC 81 MG TAB PO SCH (10:07)
[2022-12-13] MEDS: APIXABAN 2.5 MG TABLET PO SCH ×2 (10:07→20:56)
[2022-12-13] MEDS ORDERED: POTASSIUM 25 MEQ EFFERV TAB PO ONE (15:00)
[2022-12-13] MEDS: ATORVASTATIN 80 MG TAB PO SCH (20:56)
[2022-12-14] MEDS ORDERED: NA CHLORIDE 0.9% 250 ML IV ONE ×2 (00:13→01:26)
[2022-12-14] MEDS ORDERED: NA CHLORIDE 0.9% 500 ML IV ONE (04:18)
[2022-12-14] MEDS: LEVOTHYROXINE SOD 0.1 MG TAB PO SCH (05:32)
--- NOTE | 2022-12-14 06:57 | P.PN ---
Date of Service: 12/14/22 Subjective: soreness in chest is not as bad today no dizziness/nausea today reports decrease in pain in left lower chest today (needles sensation) hypotensive and hypoxic overnight, BP responded to fluid bolus ROS: 10 point ROS as noted above, otherwise negative Physical Exam: GEN: Alert, oriented, NAD HEENT: Normal conjunctiva, sclera anicteric CV: irregular rate and rhythm, no edema, IV/ harsh systolic murmur Pulm: Nonlabored respirations on 1.5L NC ABD: Soft, nontender, nondistended Neuro: Normal speech, normal affect vitals reviewed Problem List: Chest pain CAD s/p CABG (06/2022) Dyspnea Aortic stenosis, chronic, 07/2022: moderate Chronic Atrial fibrillation, on chronic anticoagulation Hypertension Hyperlipidemia Chest pain Dyspnea Aortic stenosis atypical, significant history / risk factors, CABG 06/2022 initial troponin negative, no ST changes monitor on telemetry Cardiology consulted - no ischemic workup needed echocardiogram ordered No signs of overt volume overload, saturating well on room air but reports progressively worsening shortness of breath over the last few weeks Patient with harsh systolic murmur, last echocardiogram (07/18 at OSH) showed moderate aortic stenosis. given IV Lasix in ED, continue oral Lasix Atrial fibrillation on chronic anticoagulation Hypertension Hyperlipidemia continue home medication including aspirin & statin continue home eliquis hold home anti-hypertensives s/p IVF bolus overnight / this morning; monitor BP VTE: home Eliquis Code: Full Dispo: home, ~24 Hours; pending trop, pain, BP
[2022-12-14 07:12] LABS: Absolute Lymphocytes (CBC) 1.6 K/uL (0.7-4.9); Hematocrit 32.8 % (36.0-45.0); Lymphocytes % 40.2 % (15.3-44.8); RBC Red Blood Cell Count 3.68 M/uL (3.86-4.86)
[2022-12-14 07:19] LABS: Magnesium 2.2 mg/dL (1.6-2.4); Potassium 4.3 mEq/L (3.5-5.1)
[2022-12-14] MEDS: GABAPENTIN 300 MG CAP PO SCH ×3 (08:54→21:42)
[2022-12-14] MEDS: FUROSEMIDE 40 MG TABLET PO SCH (08:54)
[2022-12-14] MEDS: HYDRALAZINE HCL 25 MG TABLET PO SCH ×2 (08:55→13:28)
[2022-12-14] MEDS: ASPIRIN EC 81 MG TAB PO SCH (08:55)
[2022-12-14] MEDS: APIXABAN 2.5 MG TABLET PO SCH ×2 (08:55→21:42)
[2022-12-14] MEDS: LOSARTAN POTASSIUM 50 MG TABLET PO SCH (08:55)
--- NOTE | 2022-12-14 16:47 | CON ---
Date of Consultation: 12/14/2022 Reason For Consultation: Chest pain. History Of Present Illness: An 82-year-old female with history of coronary artery disease, status po st CABG, atrial fibrillation, hypertension, dyslipidemia, presented with chest pain and hypertension and shortness of breath. It is a sharp pain, needle like in between her shoulder, travels to the fro nt side, lasts for few minutes, and goes away. Denies having exertional chest pain. Cardiac enzymes were done and they were all negative. Past Medical History: As outlined above in HPI. Medications: Refer to reconciliation sheet for detailed list. Allergies: BACTRIM DS AND SULFA DRUGS. Family History: No premature coronary artery disease or cancer. Social History: Does not smoke or drink. Does not use any drugs. Review of Systems: All systems reviewed and they were negative except what mentioned in HPI. Physical Examination: Vital Signs: Reviewed. Head and Neck: Pupils are equal, reactive to light. Intact eye movements. No JVD. No cervical lym phadenopathy. Neck is supple. Thyroid is not enlarged. Lungs: Clear to auscultation bilaterally. No rhonchi, wheezing, or crackles. No accessory muscle u se. Heart: Irregular. No extra sounds. Abdomen: Soft, nontender. Bowel sounds positive. No organomegaly. No masses or hernia. No rigidi ty or rebound. Extremities: No edema, clubbing, or cyanosis. Intact pulses. Skin: No rash. Neurologic: Alert, awake, oriented x3. No acute focal deficits appreciated. Investigations: Cardiac enzymes are negative x3. BUN is 18, creatinine 0.61, hemoglobin is 10.7. Assessment And Recommendations: 1.Chest pain. It is atypical pain and cardiac enzymes are negative. Outpatient stress test will be recommended. No further inpatient cardiac workup is needed. 2.Aortic valve stenosis, moderate when last checked, update an echo, re-assess. 3.Atrial fibrillation, rate is controlled, on apixaban. Continue current management. SR/MODL Voice ID: [id number] Report ID: [id number]
--- NOTE | 2022-12-14 17:38 | EKG ---
Test Date: 2022-12-12 Test Time: 19:14:52 Team Manager: GARY MEASUREMENT RESULTS: Intervals: Rate: 69 VT: QRSD: 110 QT: 454 QTc: 486 [place]: P: VT: QRS: -7 T: 142 INTERPRETIVE STATEMENTS: Atrial fibrillation ST & T wave abnormality, consider lateral ischemia or digitalis effect Prolonged QT Abnormal ECG Compared to ECG 11/06/2022 18:59:31 ST (T wave) deviation now present T-wave abnormality no longer present Possible ischemia still present Electronically Signed On 12-14-22 17:36:02 CDT by Magdiel Reyes
[2022-12-14] MEDS: ATORVASTATIN 80 MG TAB PO SCH (21:42)
[2022-12-15 02:00] VITALS: O2SAT 98; BMI 28.6
[2022-12-15 03:44] LABS: Absolute Lymphocytes (CBC) 1.7 K/uL (0.7-4.9); Hematocrit 32.3 % (36.0-45.0); Lymphocytes % 29.4 % (15.3-44.8); MCV 88.9 fL (80-100); MPV 8.5 fL (7.6-11.3); RBC Red Blood Cell Count 3.63 M/uL (3.86-4.86)
[2022-12-15 03:57] LABS: Magnesium 2.3 mg/dL (1.6-2.4); Potassium 4.7 mEq/L (3.5-5.1)
[2022-12-15] MEDS: ACETAMINOPHEN 500 MG TAB PO PRN (04:26)
[2022-12-15] MEDS: LEVOTHYROXINE SOD 0.1 MG TAB PO SCH (05:44)
[2022-12-15 08:34] VITALS: BP 140/57; TEMP 97.7
[2022-12-15] MEDS: ASPIRIN EC 81 MG TAB PO SCH (08:35)
[2022-12-15] MEDS: APIXABAN 2.5 MG TABLET PO SCH (08:35)
[2022-12-15] MEDS: FUROSEMIDE 40 MG TABLET PO SCH (08:35)
[2022-12-15] MEDS: GABAPENTIN 300 MG CAP PO SCH (08:35)
--- NOTE | 2022-12-15 08:53 | P.DS ---
Admission Date: 12/14/22 Discharge Date: 12/15/22 Disposition: ROUTINE DISCHARGE Reason for Admission: Dyspnea, chest pain Brief History of Present Illness: 82-year-old female with history of CAD status post CABG, atrial fibrillation on chronic anticoagulation, hypertension, hyperlipidemia presented to the emergency department for dyspnea, hypertension, chest pain. She reported increased shortness of breath and generalized weakness. She also reported an episode of needlelike pain between her shoulder blades and needlelike pain in her chest. Her labs in the ED were significant for potassium 3.3 bicarb 34 creatinine 1.27 GFR 42 glucose 134 BNP 1899. Chest x-ray showed no acute findings, venous Doppler showed bilateral lower extremities negative for DVT. Her most recent echocardiogram on 03/19/2020 and showed normal left ventricular size and function, mitral annular calcification, moderate aortic stenosis, mild tricuspid regurgitation, moderate pulmonary hypertension, mild aortic regurgitation. Patient was hospitalized for further management. Hospital Course: Diagnosis Chest pain CAD s/p CABG (06/2022) Dyspnea Aortic stenosis, chronic, 07/2022: moderate Chronic Atrial fibrillation, on chronic anticoagulation Hypertension Hyperlipidemia Chronic diastolic heart failure Patient admitted to the medical floor and the following medical problems addressed: Chest pain Dyspnea Aortic stenosis atypical, significant history / risk factors, CABG 06/2022 Troponin negative, no ST changes Cardiology consulted - no ischemic workup needed echocardiogram done showed moderate aortic stenosis. Cardiology recommended repeat echo for cost on evaluating the aortic valve which can be done as an outpatient. No signs of overt volume overload. Patient treated with lasix for chronic diastolic heart failure. Atrial fibrillation on chronic anticoagulation Hypertension Hyperlipidemia continued home medication including aspirin & statin continued home eliquis Home antihypertensives were briefly held due to soft blood pressure and resumed on discharge after her blood pressure readings improved. Vital Signs/Physical Exam: Temp Pulse Resp BP Pulse Ox 97.7 F 61 16 140/57 L 98 12/15/22 08:00 12/15/22 08:35 12/15/22 08:00 12/15/22 08:35 12/15/22 08:00 General: Alert, In no apparent distress, Oriented x3 HEENT: Mucous membr. moist/pink Neck: Supple, JVD not distended Respiratory: Clear to auscultation bilaterally, Normal air movement Cardiovascular: Regular rate/rhythm, Normal S1 S2 Gastrointestinal: Normal bowel sounds, Soft and benign, Non-distended, No tenderness Musculoskeletal: No swelling Integumentary: No cyanosis Neurological: Normal strength at 5/5 x4 extr Laboratory Data at Discharge: WBC 5.70 thou/uL (4.3-10.9) 12/15/22 02:55 Hgb 10.5 g/dL (12.0-15.0) L 12/15/22 02:55 Hct 32.3 % (36.0-45.0) L 12/15/22 02:55 Plt Count 172 thou/uL (152-406) 12/15/22 02:55 PT 16.5 SECONDS (9.5-12.5) H 12/12/22 19:38 INR 1.50 12/12/22 19:38 Sodium 138 mEq/L (136-145) 12/15/22 02:55 Potassium 4.7 mEq/L (3.5-5.1) 12/15/22 02:55 BUN 21 mg/dL (7-18) H 12/15/22 02:55 Creatinine 1.49 mg/dL (0.55-1.02) H 12/15/22 02:55 Glucose 127 mg/dL (74-106) H 12/15/22 02:55 Magnesium 2.3 mg/dL (1.6-2.4) 12/15/22 02:55 Triglycerides 101 mg/dL (<150) 12/13/22 06:14 Cholesterol 150 mg/dL (<200) 12/13/22 06:14 HDL Cholesterol 51 mg/dL (40-60) 12/13/22 06:14 Cholesterol/HDL Ratio 2.94 12/13/22 06:14 Lipase < 6 U/L (13-75) L 12/12/22 19:30 Home Medications: Apixaban [Eliquis *] 2.5 mg PO BID 11/07/22 Ascorbic Acid [Vitamin C] 500 mg PO DAILY 11/07/22 Aspirin [Kamila Chewable Aspirin] 81 mg PO DAILY 11/07/22 Atorvastatin Calcium [Lipitor] 80 mg PO BEDTIME 11/07/22 Cholecalciferol (Vitamin D3) [Vitamin D3] 50 mcg PO DAILY 11/07/22 Diphenhydramine HCl [Benadryl] 25 mg PO BEDTIME 11/07/22 Folic Acid/Multivits-Min [Adult Multivitamin Gummies] 500 mcg PO DAILY 11/07/22 Gabapentin 300 mg PO TID 11/07/22 Losartan Potassium 50 mg PO DAILY 11/07/22 Magnesium Citrate and Oxide [Magnesium] 250 mg PO DAILY 11/07/22 Mecobalamin [B12 Active] 500 mcg PO DAILY 11/07/22 Trazodone [Desyrel*] 50 mg PO BEDTIME 11/07/22 Folic Acid 0.4 mg PO DAILY 12/13/22 Hydralazine [Apresoline*] 25 mg PO TID 12/13/22 Levothyroxine [Synthroid*] 0.1 mg PO DAILY 12/13/22 Potassium Gluconate [Potassium] 99 mg PO DAILY 12/13/22 Furosemide [Lasix*] 40 mg PO DAILY #30 tab 12/15/22 New Medications: Furosemide [Lasix*] 40 mg PO DAILY #30 tab Diet: AHA Activity: Fall precautions Time spent managing pt's care (in minutes): 36
--- NOTE | 2022-12-15 13:01 | EKG ---
Test Date: 2022-12-13 Test Time: 05:18:31 Ampoule Filler: HB MEASUREMENT RESULTS: Intervals: Rate: 64 TN: QRSD: 102 QT: 456 QTc: 470 [place]: P: TN: QRS: 16 T: 127 INTERPRETIVE STATEMENTS: Atrial fibrillation Nonspecific T wave abnormality, probably digitalis effect Prolonged QT Abnormal ECG Compared to ECG 12/12/2022 19:14:52 T-wave abnormality now present ST (T wave) deviation no longer present Possible ischemia no longer present Electronically Signed On 12-15-22 12:58:33 CDT by Magdiel Reyes
--- NOTE | 2022-12-15 13:06 | ECHO ---
HEIGHT: 5 ft 5 in WEIGHT: 172 lb 0 oz DATE OF STUDY: 12/14/[address]: Javid Carlos NP 2-DIMENSIONAL: YES M.MODE: YES DOPPLER: YES COLOR FLOW: YES TDS: PORTABLE: YES DEFINITY: BUBBLE STUDY: DIAGNOSIS: DYSPNEA CARDIAC HISTORY: CATHERIZATION: SURGERY: PROSTHETIC VALVE: PACEMAKER: MEASUREMENTS (cm) DIASTOLIC (NORMALS) SYSTOLIC (NORMALS) IVSd 1.3 (0.6-1.2) LA Diam 3.9 (1.9-4.0) LVEF 58% LVIDd 3.4 (3.5-5.7) LVIDs 2.4 (2.0-3.5) %FS 30% LVPWd 1.3 (0.6-1.2) Ao Diam 2.7 (2.0-3.7) 2 DIMENSIONAL ASSESSMENT: RIGHT ATRIUM: NORMAL LEFT ATRIUM: NORMAL RIGHT VENTRICLE: NORMAL LEFT VENTRICLE: NORMAL TRICUSPID VALVE: MILD TRICUSPID REGURGITATION MITRAL VALVE: NORMAL PULMONIC VALVE: NOT WELL SEEN AORTIC VALVE: HEAVILY CALCIFIED AORTIC VALVE PERICARDIAL EFFUSION: NONE AORTIC ROOT: NORMAL LEFT VENTRICULAR WALL MOTION: NORMAL DOPPLER/COLOR FLOW: SEE BELOW COMMENTS: 1. POOR WINDOWS 2. LEFT VENTRICULAR EJECTION FRACTION IS NORMAL 55-60%HEAVILY CALCIFIED AORTIC VALVE WITH AT LEAST MODERATE AORTIC STENOSIS. REPEAT FOCUSED ECHOCARDIOGRAM INTERROGATING THE AORTIC VALVE. TECHNOLOGIST: ARISTEO NOWAK
== END 2022-12-15 11:56 | disposition home health service (06) | DRG 313 ==
LOC: ER 18:41 → ERHOLD 22:27 → 2ND 12-13 00:19 → OBSVTOIN 12-14 07:49
PROVIDERS: ADMIT Hospitalist; ATTEND Internal Medicine
DX: R07.89 Other chest pain (principal); I48.20 Chronic atrial fibrillation, unspecified; I50.32 Chronic diastolic (congestive) heart failure; I11.0 Hypertensive heart disease with heart failure; E78.5 Hyperlipidemia, unspecified; I35.0 Nonrheumatic aortic (valve) stenosis; I25.10 Atherosclerotic heart disease of native coronary artery without angina pectoris; Z60.2 Problems related to living alone; Z88.1 Allergy status to other antibiotic agents; Z95.1 Presence of aortocoronary bypass graft; Z79.82 Long term (current) use of aspirin; Z79.01 Long term (current) use of anticoagulants; Z90.49 Acquired absence of other specified parts of digestive tract; Z79.890 Hormone replacement therapy; Z79.899 Other long term (current) drug therapy; Z20.822 Contact with and (suspected) exposure to COVID-19
CPT/HCPCS: 36415; 71045; 80048; 80061; 81003; 81015; 83690; 83735; 83880; 84132; 84484; 85025; 85379; 85610; 87811; 93005; 93306; 93970; 96374; 99285; G0378; J1940; J2270; J2405; J7040; J7050

== ENCOUNTER 2023-01-28 10:45 | Day surgery (SDC) | payer OTHER ==
[2023-01-25 14:46] LABS: Absolute Lymphocytes (CBC) 1.5 K/uL (0.7-4.9); Hematocrit 40.2 % (36.0-45.0); Lymphocytes % 26.2 % (15.3-44.8); MCV 89.4 fL (80-100); MPV 8.3 fL (7.6-11.3)
[2023-01-25 14:53] LABS: Protime INR 1.62
[2023-01-25 15:04] LABS: Potassium 3.6 mEq/L (3.5-5.1)
--- NOTE | 2023-01-27 14:11 | EKG ---
Test Date: 2023-01-25 Test Time: 14:20:32 Riffler Tender: AFTAB MEASUREMENT RESULTS: Intervals: Rate: 69 [place]: QRSD: 102 QT: 400 QTc: 428 [place]: P: DE: QRS: -16 T: 133 INTERPRETIVE STATEMENTS: Atrial fibrillation ST & T wave abnormality, consider lateral ischemia or digitalis effect Abnormal ECG Compared to ECG 12/13/2022 05:18:31 ST (T wave) deviation now present Possible ischemia now present T-wave abnormality no longer present Prolonged QT interval no longer present Electronically Signed On 01-27-23 14:08:51 CDT by Magdiel Reyes
[~2023-01-28 10:45] MED LIST: NA CHLORIDE 0.9% 0 ML ONE
[2023-01-28] MEDS ORDERED: FENTANYL CITR 100 MCG/2 ML ONE (11:12)
[2023-01-28] MEDS ORDERED: CEFAZOLIN SODIUM 1 GM/VIAL ONE (11:12)
[2023-01-28] MEDS ORDERED: MIDAZOLAM HCL 2 MG/2 ML INJ ONE (11:12)
[2023-01-28] MEDS ORDERED: NA CHLORIDE 0.9% 500 ML ONE (11:13)
[2023-01-28] MEDS ORDERED: LIDOCAINE 1% MPF 30 ML VIAL ONE (11:13)
[2023-01-28 13:44] VITALS: BP 151/63; O2SAT 100
--- NOTE | 2023-01-28 14:09 | OP ---
Date of Procedure: 01/28/2023 Surgeon: MOLLY RAMEY Procedure Performed: Loop recorder removal. Indications: Significant pain and tenderness at the site and the device is no longer needed. Description Of Procedure: After risks, benefits and alternatives were explained, the patient agreed to the procedure and signed informed consent. The patient was brought into the cardiac catheterizati on laboratory after she was prepped and draped in usual sterile fashion. I gave fentanyl and Versed in incremental doses to achieve adequate moderate sedation. Then, I used local lidocaine for local s kin anesthesia and then a 1 cm cut was made at the distal end of the device and device was located ea sily and then was removed without difficulties in a whole piece and then wound was sutured using 3-0 Ethilon suture. Two sutures were placed. The patient tolerated the procedure very well and sent to recovery in stable condition. Conclusion: Successful loop recorder removal. Plan: Keep wound dry and in 1 week to come to the office for sutures removal. /DASHA Voice ID: [id number] Report ID: [id number]
== END 2023-01-28 13:47 | disposition home or self-care (01) ==
LOC: CCL 10:45
PROVIDERS: ATTEND Internal Medicine
DX: Z45.09 Encounter for adjustment and management of other cardiac device (principal); I48.19 Other persistent atrial fibrillation; I35.0 Nonrheumatic aortic (valve) stenosis; I25.10 Atherosclerotic heart disease of native coronary artery without angina pectoris; I11.0 Hypertensive heart disease with heart failure; I50.32 Chronic diastolic (congestive) heart failure; I27.20 Pulmonary hypertension, unspecified; E78.2 Mixed hyperlipidemia; E11.9 Type 2 diabetes mellitus without complications; Z95.1 Presence of aortocoronary bypass graft; Z88.2 Allergy status to sulfonamides; Z82.49 Family history of ischemic heart disease and other diseases of the circulatory system
CPT/HCPCS: 93005; 85025; 80048; 36415; 85610; 85730; 33286; J2001; J2250; J3010; J7040; J0690

== ENCOUNTER 2024-05-15 16:49 | Inpatient (IN) | payer OTHER ==
[2024-05-15 17:26] LABS: Absolute Lymphocytes (CBC) 0.9 K/uL (0.7-4.9); Absolute Monocytes 0.5 K/uL (0.1-1.3); Absolute Neutrophil 5.1 K/uL (1.8-8.0); Basophils % 0.5 % (0-1.3); Eosinophils % 0.2 % (0-4.4); Hematocrit 19.7 % (36.0-45.0); Hemoglobin 6.2 g/dL (12.0-15.0); Lymphocytes % 13.9 % (15.3-44.8); MCH 25.9 pg (27.0-35.0); MCHC 31.6 g/dL (32.0-36.0); MCV 81.9 fL (80-100); MPV 7.8 fL (7.6-11.3); Monocytes % 7.4 % (3.3-12.3); Nucleated Red Blood Cells % 0.1 % (0-0); Platelets 265 thou/uL (152-406); Red Cell Distribution Width 17.4 % (12.1-15.2)
[2024-05-15 17:32] LABS: PT Prothrombin Time 21.4 SECONDS (9.4-12.5); PTT, Activated Partial Thromb 30.4 SECONDS (24.3-36.9); Protime INR 1.95
[2024-05-15 17:49] LABS: Albumin 3.1 g/dL (3.4-5.0); Albumin/Globulin Ratio 0.9 (1.1-1.8); Anion Gap 9.9 mEq/L (5.0-15.0); Bilirubin Direct 0.2 mg/dL (0-0.2); Bilirubin Indirect, Calculated 0.4 mg/dL (0.2-0.8); Bilirubin Total 0.6 mg/dL (0.2-1.0); Globulin 3.6 g/dL (2.3-3.5); Magnesium 2.1 mg/dL (1.6-2.4); Potassium 3.9 mEq/L (3.5-5.1); Protein, Total 6.7 g/dL (6.4-8.2); Troponin High Sensitivity 30.3 pg/mL (<58.9)
--- NOTE | 2024-05-15 17:55 | RAD REPORT ---
[facility] 5:46 pm CLINICAL HISTORY: Chest pain;SOB COMPARISON: Chest Single View dated 09/05/2023; Chest Single View dated 12/12/2022; Chest Single View dated 11/06/2022; Chest Single View dated 04/02/2020 TECHNIQUE: Portable AP view of the chest. FINDINGS: The lungs are clear. No pneumothorax or effusion. The cardiomediastinal contours are unre markable. Sequelae of median sternotomy. IMPRESSION: No acute cardiopulmonary process.
--- NOTE | 2024-05-15 18:07 | ER ---
Nurse's Notes [facility] Name: Claudia Myers Age: 84 yrs Sex: Female : 1940 Arrival Date: 05/15/2024 Time: 16:49 Bed 7 Private MD: Diagnosis: Persistent atrial fibrillation;Anemia, unspecified;Dyspnea, unspecified Presentation: 05/15 17:03 Chief complaint: Patient states: sob x 3 weeks. Coronavirus screen: Vaccine status: tm6 Patient reports receiving the 2nd dose of the covid vaccine. Ebola Screen: Patient negative for fever greater than or equal to 101.5 degrees Fahrenheit, and additional compatible Ebola Virus Disease symptoms Patient denies exposure to infectious person. Patient denies travel to an Ebola-affected area in the 21 days before illness onset. No symptoms or risks identified at this time. Initial Sepsis Screen: Does the patient meet any 2 criteria? No. Patient's initial sepsis screen is negative. Does the patient have a suspected source of infection? No. Patient's initial sepsis screen is negative. Risk Assessment: Do you want to hurt yourself or someone else? Patient reports no desire to harm self or others. Onset of symptoms was April 24, 2024. 17:03 Method Of Arrival: Ambulatory tm6 17:03 Acuity: KEVIN 3 tm6 Triage Assessment: 17:04 General: Appears uncomfortable, Behavior is cooperative. Pain: Denies pain. EENT: No tm6 signs and/or symptoms were reported regarding the EENT system. Neuro: Level of Consciousness is awake, alert, obeys commands, Oriented to person, place, time, situation. Cardiovascular: Reports shortness of breath, Patient's skin is warm and dry. Respiratory: Reports shortness of breath at rest on exertion since 3 weeks ago Airway is patent Respiratory effort is labored, Respiratory pattern is regular, Onset: The symptoms/episode began/occurred 3 weeks ago, the patient has mild shortness of breath. GI: No signs and/or symptoms were reported involving the gastrointestinal system. Abdomen is flat, non-distended. : No signs and/or symptoms were reported regarding the genitourinary system. Derm: No signs and/or symptoms reported regarding the dermatologic system. Musculoskeletal: No signs and/or symptoms reported regarding the musculoskeletal system. Historical: - Allergies: 17:04 Bactrim DS; tm6 - PMHx: 17:04 Atrial Fib; Hypertension; Coronary atherosclerosis; Diabetes mellitus; tm6 - PSHx: 17:04 Appendectomy; Cholecystectomy; Coronary artery bypass graft; tm6 - Immunization history:: Client reports receiving the 2nd dose of the Covid vaccine. - Infectious Disease History:: Denies. - Social history:: Smoking status: Patient denies any tobacco usage or history of. Patient/guardian denies using alcohol. Screenin:[facility] ED Fall Risk Assessment (Adult) History of falling in the last 3 months, kc6 including since admission No falls in past 3 months (0 pts) Confusion or Disorientation No (0 pts) Intoxicated or Sedated No (0 pts) Impaired Gait No (0 pts) Mobility Assist Device Used No (0 pt) Altered Elimination No (0 pt) Score/Fall Risk Level 0 - 2 = Low Risk. Abuse screen: Denies threats or abuse. Denies injuries from another. Nutritional screening: No deficits noted. Tuberculosis screening: No symptoms or risk factors identified. Assessment: 17:23 General: Appears in no apparent distress. comfortable, well groomed, well developed, kc6 Behavior is calm, cooperative, appropriate for age. Pain: Denies pain. Neuro: Level of Consciousness is awake, alert, obeys commands. Cardiovascular: Reports palpitations, shortness of breath, Denies chest pain, Murmur present Capillary refill < 3 seconds Rhythm is atrial fibrillation. Respiratory: Airway is patent Trachea midline Respiratory effort is even, unlabored, Respiratory pattern is regular, symmetrical. GI: No signs and/or symptoms were reported involving the gastrointestinal system. : No signs and/or symptoms were reported regarding the genitourinary system. EENT: No signs and/or symptoms were reported regarding the EENT system. Derm: No signs and/or symptoms reported regarding the dermatologic system. Skin is fragile, is thin, with poor turgor Skin is dry, Skin is pale, Skin temperature is warm. Musculoskeletal: No signs and/or symptoms reported regarding the musculoskeletal system. Circulation, motion, and sensation intact. Capillary refill < 3 seconds, Range of motion: intact in all extremities. 18:37 Reassessment: Patient appears in no apparent distress at this time. No changes from kc6 previously documented assessment. Patient and/or family updated on plan of care and expected duration. Pain level reassessed. Patient is alert, oriented x 3, equal unlabored respirations, skin warm/dry/pink. Vital Signs: 17:03 BP 151 / 49; Pulse 60; Resp 20; Temp 98.5(TE); Pulse Ox 97% on R/A; Weight 74.84 kg; tm6 Height 5 ft. 5 in. ; Pain 0/10; 17:23 BP 168 / 59; Pulse 54; Resp 16 S; Pulse Ox 99% on R/A; kc6 18:37 BP 153 / 54; Pulse 55; Resp 16 S; Pulse Ox 99% on R/A; kc6 17:03 Body Mass Index 27.46 (74.84 kg, 165.1 cm) tm6 17:03 Pain Scale: Adult tm6 ED Course: 16:54 Patient arrived in ED. ra3 16:56 Coty Davis, MARK is Primary Nurse. kc6 16:56 Jose Trotter DO is Attending Physician. ms3 16:56 Arm band placed on Patient placed in an exam room, on a stretcher. ll1 16:57 Attending Physician role handed off by Jose Trotter DO ms3 16:57 Elke Fontana MD is Attending Physician. ms3 17:04 Triage completed. tm6 17:14 Missed attempt(s): 20 gauge in right antecubital area. kc6 17:22 Patient has correct armband on for positive identification. Placed in gown. Bed in low kc6 position. Call light in reach. Side rails up X2. Adult w/ patient. tube coremaker on. Pulse ox on. NIBP on. Door closed. Noise minimized. Lights dimmed. Warm blanket given. Pillow given. 17:22 Inserted saline lock: 22 gauge in right forearm, using aseptic technique. Flushed with kc6 10 mL NS. 17:48 XRAY CXR (1 view) In Process Unspecified. EDMS 17:59 Type And Screen Sent. go2 18:03 Provided Education on: Blood Transfusion. kc6 18:05 Rafa Briseno MD is Hospitalizing Provider. gb1 19:58 No provider procedures requiring assistance completed. Patient admitted, IV remains in vc1 place. Administered Medications: No medications were administered Medication: 19:58 VIS not applicable for this client. vc1 Outcome: 18:06 Decision to Hospitalize by Provider. gb1 19:58 Admitted to Med/surg accompanied by tech, via stretcher, room 204, vc1 19:58 Condition: good 19:58 Instructed on the need for admit, 19:59 Patient left the ED. vc1 Signatures: Dispatcher [employer] EDWilly Davies, RN RN ll1 Jose Trotter, DO ms3 Marilyn Jeffery RN RN vc1 Coty Davis, RN RN kc6 Elke Fontana MD MD gb1 Alexandre Schwartz RN RN 6 Meliza Mclean ra3 Emy Hurley RN RN go2
--- NOTE | 2024-05-15 18:07 | EDPHYS ---
Physician Documentation [facility] Name: Claudia Myers Age: 84 yrs Sex: Female : 1940 Arrival Date: 05/15/2024 Time: 16:49 Bed 7 Private MD: ED Physician Elke Fontana HPI: 05/15 18:07 This 84 yrs old Female presents to ER via Ambulatory with complaints of gb1 Breathing Difficulty, Blood Pressure Problem. 18:07 84-year-old female here with dyspnea on exertion that is worsened over the gb1 last 2 to 3 days. Patient has a history of atrial fibrillation, hypertension, coronary artery disease with a history of a double bypass as well as 1 cardiac stents and diabetic. She denies any chest pain but she is short of breath with activity. She denies any leg swelling. She is altered her Lasix to 40 mg without her doctors permission. She denies any falls, headaches, fevers cough or shortness of breath.. Historical: - Allergies: 17:04 Bactrim DS; tm6 - PMHx: 17:04 Atrial Fib; Hypertension; Coronary atherosclerosis; Diabetes mellitus; tm6 - PSHx: 17:04 Appendectomy; Cholecystectomy; Coronary artery bypass graft; tm6 - Immunization history:: Client reports receiving the 2nd dose of the Covid vaccine. - Infectious Disease History:: Denies. - Social history:: Smoking status: Patient denies any tobacco usage or history of. Patient/guardian denies using alcohol. Exam: 18:07 Constitutional: This is a well developed, well nourished patient who is awake, alert, gb1 and in no acute distress. Head/Face: Normocephalic, atraumatic. Eyes: Pupils equal round and reactive to light, extra-ocular motions intact. Lids and lashes normal. Conjunctiva and sclera are non-icteric and not injected. Cornea within normal limits. Periorbital areas with no swelling, redness, or edema. ENT: Nares patent. No nasal discharge, no septal abnormalities noted. Tympanic membranes are normal and external auditory canals are clear. Oropharynx with no redness, swelling, or masses, exudates, or evidence of obstruction, uvula midline. Mucous membranes moist. Neck: Trachea midline, no thyromegaly or masses palpated, and no cervical lymphadenopathy. Supple, full range of motion without nuchal rigidity, or vertebral point tenderness. No Meningismus. Chest/axilla: Normal chest wall appearance and motion. Nontender with no deformity. No lesions are appreciated. Cardiovascular: Regular rate and rhythm with a normal S1 and S2. No gallops, + systolic ejection murmur 5 out of 6, or rubs. Normal PMI, no JVD. No pulse deficits. Abdomen/GI: Soft, non-tender, with normal bowel sounds. No distension or tympany. No guarding or rebound. No evidence of tenderness throughout. Back: No spinal tenderness. No costovertebral tenderness. Full range of motion. Skin: Warm, dry with normal turgor. Normal color with no rashes, no lesions, and no evidence of cellulitis. MS/ Extremity: Pulses equal, no cyanosis. Neurovascular intact. Full, normal range of motion. Neuro: Awake and alert, GCS 15, oriented to person, place, time, and situation. Cranial nerves II-XII grossly intact. Motor strength 5/5 in all extremities. Sensory grossly intact. Cerebellar exam normal. Normal gait. Psych: Awake, alert, with orientation to person, place and time. Behavior, mood, and affect are within normal limits. Vital Signs: 17:03 BP 151 / 49; Pulse 60; Resp 20; Temp 98.5(TE); Pulse Ox 97% on R/A; Weight 74.84 kg; tm6 Height 5 ft. 5 in. ; Pain 0/10; 17:23 BP 168 / 59; Pulse 54; Resp 16 S; Pulse Ox 99% on R/A; kc6 18:37 BP 153 / 54; Pulse 55; Resp 16 S; Pulse Ox 99% on R/A; kc6 17:03 Body Mass Index 27.46 (74.84 kg, 165.1 cm) tm6 17:03 Pain Scale: Adult tm6 MDM: 17:01 Patient medically screened. gb1 18:07 Data reviewed: vital signs, nurses notes, lab test result(s), cardiac enzymes, CBC, gb1 electrolytes, BNP, EKG, radiologic studies, plain films. ED course: 84-year-old female with history of atrial fibrillation on Eliquis, hypertension, coronary artery disease status post a history of a CABG x 2 with 1 cardiac stent and diabetes. Patient here with dyspnea on exertion consistent with concern for new anemia. She denies any bright red blood per rectum or melena. Patient with a hemoglobin of 6 today as compared to 11 in 2022. I have admitted the patient to Dr. Rafa Briseno's hospitalist service on telemetry. The patient has been consented for blood transfusion as well as typed and screened. She needs a cardiac evaluation as she has a 5 out of 6 systolic ejection murmur consistent with aortic stenosis and needs likely cardiology eval as well. Patient's BNP is elevated over 4000 and her chest x-ray looks negative for acute pulmonary edema and she has no signs of increased respiratory drive. I doubt acute pulmonary edema in this case.. 05/15 17:01 Order name: BMP; Complete Time: 18:00 gb1 05/15 17:01 Order name: CBC with Diff; Complete Time: 17:42 gb1 05/15 17:01 Order name: CPK; Complete Time: 18:00 gb1 05/15 17:01 Order name: Hepatic Function; Complete Time: 18:00 gb1 05/15 17:01 Order name: Lipase; Complete Time: 18:00 gb1 05/15 17:01 Order name: Magnesium; Complete Time: 18:00 gb1 05/15 17:01 Order name: NT PRO-BNP; Complete Time: 18:00 gb1 05/15 17:01 Order name: PT-INR; Complete Time: 17:42 gb1 05/15 17:01 Order name: Ptt, Activated; Complete Time: 17:42 gb1 05/15 17:01 Order name: Troponin HS; Complete Time: 18:00 gb1 05/15 17:45 Order name: Type And Screen gb1 05/15 18:33 Order name: Urinalysis w/ reflexes EDMS 05/15 18:33 Order name: CBC with Automated Diff EDMS 05/15 18:33 Order name: CBC with Automated Diff EDMS 05/15 18:33 Order name: Comprehensive Metabolic Panel EDMS 05/15 18:33 Order name: Comprehensive Metabolic Panel EDMS 05/15 18:33 Order name: Troponin High Sensitivity EDMS 05/15 18:33 Order name: Troponin High Sensitivity EDMS 05/15 18:33 Order name: Troponin High Sensitivity EDMS 05/15 18:33 Order name: Troponin High Sensitivity EDMS 05/15 18:46 Order name: ABO/RH no charge EDMS 05/15 17:01 Order name: XRAY CXR (1 view); Complete Time: 18:00 [facility] 05/15 17:01 Order name: Cardiac monitoring; Complete Time: 17:03 [facility] 05/15 17:01 Order name: EKG - Nurse/Tech; Complete Time: 17:03 [facility] 05/15 17:01 Order name: IV Saline Lock; Complete Time: 17:24 [facility] 05/15 17:01 Order name: Labs collected and sent; Complete Time: 17:13 [facility] 05/15 17:01 Order name: O2 Per Protocol; Complete Time: 17:03 [facility] 05/15 17:01 Order name: O2 Sat Monitoring; Complete Time: 17:03 [facility] 05/15 18:04 Order name: Labs - recollect needed: recollect type and screen and re band pt.; bd Complete Time: 18:09 Administered Medications: No medications were administered Disposition Summary: 05/15/24 18:06 Hospitalization Ordered Notes: Hospitalization Status: Inpatient Admission 1 Provider: Rafa Briseno [facility] Location: Telemetry/MedSurg (Inpatient) gb1 Condition: Stable gb1 Problem: new gb1 Symptoms: are unchanged gb1 Bed/Room Type: Standard [facility] Room Assignment: 204(05/15/24 18:48) [facility] Diagnosis - Persistent atrial fibrillation gb1 - Anemia, unspecified gb1 - Dyspnea, unspecified gb1 Forms: - Medication Reconciliation Form gb1 - SBAR form gb1 - Leadership Thank You Letter gb1 Signatures: Dispatcher [employer] EDMS Ina Mcbride Gina, MD MD gb1 Marisa Poe [facility] Alexandre Schwartz RN RN tm6 Corrections: (The following items were deleted from the chart) 17:02 17:02 BASIC METABOLIC PANEL+C.LAB.BRZ ordered. EDMS EDMS 17:02 17:02 CBC+H.LAB.BRZ ordered. EDMS EDMS 17:02 17:02 CREATINE PHOSPHOKINASE+C.LAB.BRZ ordered. EDMS EDMS 17:02 17:02 HEPATIC FUNCTION+C.LAB.BRZ ordered. EDMS EDMS 17:02 17:02 LIPASE+C.LAB.BRZ ordered. EDMS EDMS 17:02 17:02 MAGNESIUM+C.LAB.BRZ ordered. EDMS EDMS 17:02 17:02 PROBNP+C.LAB.BRZ ordered. EDMS EDMS 17:02 17:02 PROTIME (+INR)+COAG.LAB.BRZ ordered. EDMS EDMS 17:02 17:02 PTT, ACTIVATED+COAG.LAB.BRZ ordered. EDMS EDMS 17:02 17:02 Troponin High Sensitivity+C.LAB.BRZ ordered. EDMS EDMS 17:02 17:02 Chest Single View+RAD.RAD.BRZ ordered. EDMS EDMS 17:17 17:02 BLOOD CULTURE*+BA.LAB.BRZ ordered. EDMS EDMS 17:45 17:45 TYPE AND SCREEN+BB.LAB.BRZ ordered. EDMS EDMS 18:48 18:06 gb1 kmf
[2024-05-15] MEDS ORDERED: ALBUTEROL 2.5 MG/3 ML NEB SOL NEB PRN (18:28)
[2024-05-15] MEDS ORDERED: ACETAMINOPHEN 325 MG TABLET PO PRN (18:28)
[2024-05-15] MEDS ORDERED: IPRATROPIUM BROM 0.5MG/2.5ML NEB PRN (18:28)
--- NOTE | 2024-05-15 18:28 | P.HP ---
Certification for Inpatient Patient admitted to: Inpatient With expected LOS: >2 Midnights Practitioner: I am a practitioner with admitting privileges, knowledge of patient current condition, hospital course, and medical plan of care. Services: Services provided to patient in accordance with Admission requirements found in Title 42 Section 412.3 of the Code of Federal Regulations Patient History Date of Service: 05/15/24 Reason for admission: SOB History of Present Illness: 84 yo Female with past medical history of hypertension, hyperlipidemia, A-fib, CAD status post CABG 2021, hypothyroidism, CHF, history of anemia, diabetes, who was brought to the ER with generalized weakness and shortness of breath which has been progressively getting worse over the last 2 to 3 days. Patient denies any chest pain. But she is short of breath with even minimal activities. Patient states that walking to the fridge will take at least 3 stops and needing to rest even walking up to 4 to 5 feet. Patient denies any fever or chills. No nausea vomiting or diarrhea. Patient denies any falls. Patient was assessed in the ER and is admitted for further management of anemia. She is on blood thinners. Patient denies any hematemesis but has black stools no tarry stool though. Allergies sulfamethoxazole [From Bactrim] Allergy (Verified 05/15/24 20:26) Hives trimethoprim [From Bactrim] Allergy (Verified 05/15/24 20:26) Hives Home medications list reviewed: Yes Home Medications: Apixaban [Eliquis *] 2.5 mg PO BID 11/07/22 Aspirin [Kamila Chewable Aspirin] 81 mg PO DAILY 11/07/22 Atorvastatin Calcium [Lipitor] 80 mg PO BEDTIME 11/07/22 Diphenhydramine HCl [Benadryl] 50 mg PO BID PRN 11/07/22 Gabapentin 300 mg PO TID 11/07/22 Levothyroxine [Synthroid*] 100 mcg PO DAILY 12/13/22 Potassium Gluconate [Potassium] 99 mg PO DAILY 12/13/22 Ondansetron HCl 4 mg PO Q6HP PRN 09/05/23 Trazodone [Desyrel*] 50 mg PO BEDTIME 09/10/23 Losartan Potassium 25 mg PO DAILY #30 tab 09/11/23 Furosemide [Lasix*] 20 mg PO DAILY 05/15/24 Hydralazine HCl 10 mg PO BID 05/15/24 - Past Medical/Surgical History Diabetic: Yes Past Medical History: Reviewed- Non-Contributory -: HTN -: A.FIB -: CHF -: NIDDM -: CAD with CABG 2021 -: Hyperlipidemia -: Hypothyroid Past Surgical History: Reviewed- Non-Contributory -: Cholecystectomy -: appendectomy -: CABG-04/2023 Psychosocial/ Personal History: Lives at home alone. Son lives nearby. - Family History Father -: Heart disease Mother -: Heart disease - Social History Smoking Status: Never smoker Alcohol use: No CD- Drugs: No Caffeine use: Yes Review of Systems 10-point ROS is otherwise unremarkable Physical Examination - Vital Signs Temperature: 98.5 F Blood Pressure: 148/49 Pulse: 60 Respirations: 20 Pulse Ox (%): 94 - Physical Exam General: Alert, Oriented x3, Mild distress, Other (Tired looking) HEENT: Atraumatic, Normocephalic Neck: Supple Respiratory: Clear to auscultation bilaterally, Normal air movement Cardiovascular: Regular rate/rhythm, Normal S1 S2 Capillary refill: <2 Seconds Gastrointestinal: Soft and benign, W/out hepatosplenomegaly, No ascites Musculoskeletal: No clubbing, No swelling Integumentary: No rashes, No breakdown Neurological: Normal speech, Normal strength at 5/5 x4 extr, Cranial nerves 3-12 intact, Normal reflexes 2+ Lymphatics: No axilla or inguinal lymphadenopathy - Studies Laboratory Data (last 24 hrs) 05/15/24 05/15/24 05/15/24 17:14 17:14 17:14 WBC 6.50 Hgb 6.2 L Hct 19.7 L Plt Count 265 PT 21.4 H INR 1.95 APTT 30.4 Sodium 133 L Potassium 3.9 BUN 31 H Creatinine 1.84 H Glucose 178 H Magnesium 2.1 Total Bilirubin 0.6 AST 41 H ALT 27 Alkaline Phosphatase 109 Lipase 15 Assessment and Plan - Plan Acute on chronic CHF possibly systolic/diastolic Monitor closely on telemetry Started on aggressive diuresis Continue home medications Titrate as needed Will obtain an echocardiogram Cardiology consult Anemia due to chronic disease/nutritional/chronic blood loss Will start on PPI H&H closely monitored Transfuse 2 units PRBC Monitor H&H closely Will get FOBT Atrial fibrillation Rate controlled Continue home medications Hypertension Antihypertensives titrated Continue home medications and titrate as needed Hyperlipidemia Continue statin 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 Monitor renal parameters Electrolytes monitor and replace accordingly Diabetes Insulin sliding scale Accu-Chek before every meal and at bedtime CAD status post CABG Continue home medications Monitor closely on telemetry Patient denies any chest pain GI/DVT prophylaxis Advanced directive full code Discharge Plan: Home Plan to discharge in: 48 Hours - Advance Directives Does patient have a Living Will: No Does patient have a Durable POA for Healthcare: No - Code Status/Comfort Care Code Status: Full Code Time Spent Managing Pts Care (In Minutes): 48
[2024-05-15] MEDS ORDERED: HYDROCODONE/APAP 5/325 MG TAB PO PRN (18:36)
[2024-05-15 20:56] VITALS: BMI 27.4
[2024-05-15 21:33] LABS: Renal Epithelial <5 /HPF (None Seen); Specific Gravity 1.014 (1.005-1.030); Sqamous Epithelial <5 /HPF (None Seen); Urine Bacteria <20 /HPF (<20); Urine Bilirubin NEGATIVE (Negative); Urine Blood Negative (Negative); Urine Clarity Turbid (Clear); Urine Color Light-Yellow (Yellow); Urine Culture Reflex Order NOT NEEDED; Urine Glucose NEGATIVE (Negative); Urine Ketones NEGATIVE (Negative); Urine Microscopic Reflex YN ORDER UMIC; Urine Mucus Slight /HPF (None Seen); Urine Nitrite NEGATIVE (Negative); Urine Protein NEGATIVE (Negative); Urine RBC None Seen /HPF (None Seen); Urine Urobilinogen Normal (Normal); Urine WBC Clump Rare /HPF (None Seen); Urine pH 5.5 (5.0-7.0)
[2024-05-15] MEDS ORDERED: DIPHENHYDRAMINE 25 MG TAB/CAP PO PRN (22:03)
[2024-05-15] MEDS ORDERED: ONDANSETRON 4 MG (ODT) TAB PO PRN (22:03)
[2024-05-15] MEDS: PANTOPRAZOLE 40MG TABLET PO SCH (22:37)
[2024-05-15] MEDS: NA CHLORIDE 0.9% 250 ML IV SCH ×2 (22:41→23:00)
[2024-05-15] MEDS: FUROSEMIDE 20 MG/ 2ML VIAL IV SCH (22:59)
[2024-05-16] MEDS: TRAZODONE 50 MG TABLET PO ONE (02:43)
[2024-05-16] MEDS: NA CHLORIDE 0.9% 250 ML IV PRN (02:44)
--- NOTE | 2024-05-16 06:36 | P.PN ---
Date of Service: 05/16/24 Subjective Anemia hemoglobin 6.2, transfused 2 units, GI following Dr. Montague for EGD today Review of Systems 10-point ROS is otherwise unremarkable Physical Examination - Vital Signs reviewed - Physical Exam General: Alert, Oriented x3, generalized weakness HEENT: Atraumatic, Normocephalic Neck: Supple Respiratory: Clear to auscultation bilaterally, Normal air movement Cardiovascular: Regular rate/rhythm, Normal S1 S2 Capillary refill: <2 Seconds Gastrointestinal: Soft and benign, W/out hepatosplenomegaly, No ascites Musculoskeletal: No clubbing, No swelling Integumentary: No rashes, No breakdown Neurological: Normal speech, Normal strength at 5/5 x4 extr, Cranial nerves 3-12 intact, Normal reflexes 2+ Lymphatics: No axilla or inguinal lymphadenopathy Assessment and Plan - Plan Acute on chronic CHF possibly systolic/diastolic Monitor closely on telemetry Started on aggressive diuresis Continue home medications Titrate as needed Will obtain an echocardiogram Cardiology consult Severe anemia GI bleed Anemia due to chronic disease/nutritional/chronic blood loss Will start on PPI H&H closely monitored Transfuse 2 units PRBC Monitor H&H closely GI following EGD scheduled 05/16/24 PPI, octreotide Atrial fibrillation Rate controlled Continue home medications Hypertension Antihypertensives titrated Continue home medications and titrate as needed Hyperlipidemia Continue statin 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 Monitor renal parameters Electrolytes monitor and replace accordingly Diabetes Insulin sliding scale Accu-Chek before every meal and at bedtime CAD status post CABG Continue home medications Monitor closely on telemetry Patient denies any chest pain GI/DVT prophylaxis Advanced directive full code Discharge Plan: Home Plan to discharge in: 48 Hours - Advance Directives Does patient have a Living Will: No Does patient have a Durable POA for Healthcare: No - Code Status/Comfort Care Code Status: Full Code Time Spent Managing Pts Care (In Minutes): 35 <Tiffanie Petersen - Last Filed: 05/16/24 18:27> Patient was seen and examined. Events of the last 24 hours have been noted. Spoke with with ISAIAS regarding patient's clinical picture after evaluating and examining the patient independently. I performed a substantial part of the MDM during this patient's care today. I personally made or approved the documented management plan and acknowledge its risk of complications. I agree with the findings and documentation provided in the ISAIAS's notes. Patient has been diuresed. Hemoglobin has decreased. Continue with diuresing patient at this time. Monitor renal function closely. Monitor H&H. Transfusion is pending. Patient will need at least 2 units of packed red blood cells. GI consultation. Hold anticoagulation at this time. Continue monitoring renal function. <Joy Gallego - Last Filed: 05/22/24 01:04>
[2024-05-16] MEDS ORDERED: SODIUM CHLORIDE 0.9% 10ML INJ IV PRN (06:41)
[2024-05-16] MEDS: ONDANSETRON 4 MG/2 ML VIAL IV PRN (06:53)
[2024-05-16] MEDS: OCTREOTIDE 500 MCG in NA CHLORIDE 0.9% 500 ML IV SCH ×2 (07:00→09:07)
[2024-05-16 07:19] LABS: Absolute Monocytes 0.6 K/uL (0.1-1.3); Absolute Neutrophil 5.7 K/uL (1.8-8.0); Basophils % 0.4 % (0-1.3); Eosinophils % 0.4 % (0-4.4); Hematocrit 24.5 % (36.0-45.0); Hemoglobin 7.8 g/dL (12.0-15.0); Lymphocytes % 13.9 % (15.3-44.8); MCH 26.7 pg (27.0-35.0); MCHC 31.8 g/dL (32.0-36.0); MCV 83.8 fL (80-100); MPV 7.8 fL (7.6-11.3); Monocytes % 7.6 % (3.3-12.3); Neutrophils % 77.7 % (41.7-73.7); Platelets 272 thou/uL (152-406); RBC Red Blood Cell Count 2.92 M/uL (3.86-4.86); Red Cell Distribution Width 16.7 % (12.1-15.2)
[2024-05-16] MEDS: DIPHENHYDRAMINE 50 MG/ML VIAL IV ONE (07:21)
[2024-05-16] MEDS: FUROSEMIDE 20 MG/ 2ML VIAL IV ONE (07:22)
[2024-05-16] MEDS: ACETAMINOPHEN 500 MG TAB PO ONE (07:22)
[2024-05-16 07:32] LABS: Albumin 3.1 g/dL (3.4-5.0); Albumin/Globulin Ratio 0.9 (1.1-1.8); Anion Gap 10.9 mEq/L (5.0-15.0); Bilirubin Total 0.9 mg/dL (0.2-1.0); Globulin 3.3 g/dL (2.3-3.5); Potassium 3.9 mEq/L (3.5-5.1); Protein, Total 6.4 g/dL (6.4-8.2)
[2024-05-16] MEDS: PANTOPRAZOLE INJ 80 MG in NA CHLORIDE 0.9% 250 ML IV SCH (07:49)
[2024-05-16] MEDS ORDERED: PANTOPRAZOLE 40 MG INJ IVP SCH (09:00)
[2024-05-16] MEDS: HYDRALAZINE HCL 10 MG TABLET PO SCH (09:00)
[2024-05-16] MEDS: ASPIRIN 81 MG CHEWABLE TABLET PO SCH (09:00)
[2024-05-16] MEDS ORDERED: GABAPENTIN 300 MG CAP PO SCH (09:00)
[2024-05-16] MEDS: POTASSIUM GLUCONATE PO SCH (09:00)
[2024-05-16] MEDS: ENOXAPARIN 40 MG/0.4 ML SQ SCH (09:00)
[2024-05-16] MEDS: NA CHLORIDE 0.9% 250 ML IV SCH (09:08)
[2024-05-16] MEDS: LEVOTHYROXINE SOD 0.1 MG TAB PO SCH (09:17)
[2024-05-16] MEDS: LOSARTAN POTASSIUM 50 MG TABLET PO SCH (09:18)
[2024-05-16] MEDS: GABAPENTIN 300 MG CAP PO SCH (09:21)
[2024-05-16] MEDS: NA CHLORIDE 0.9% 250 ML ONE (10:29)
[2024-05-16] MEDS: METOCLOPRAMIDE 10 MG/2mL INJ IV SCH ×2 (11:00→21:49)
--- NOTE | 2024-05-16 14:26 | ECHO ---
HEIGHT: 5 ft 5 in WEIGHT: 165 lb 0 oz DATE OF STUDY: 05/16/[address]: Dimitris Briseno DO 2-DIMENSIONAL: YES M.MODE: YES DOPPLER: YES COLOR FLOW: YES TDS: PORTABLE: YES DEFINITY: BUBBLE STUDY: DIAGNOSIS: CONGESTIVE HEART FAILURE CARDIAC HISTORY: CATHERIZATION: YES SURGERY: YES PROSTHETIC VALVE: NO PACEMAKER: NO MEASUREMENTS (cm) DIASTOLIC (NORMALS) SYSTOLIC (NORMALS) IVSd 1.3 (0.6-1.2) LA Diam 4.5 (1.9-4.0) LVEF 55-60% LVIDd 5.0 (3.5-5.7) LVIDs 3.1 (2.0-3.5) %FS 38% LVPWd 1.3 (0.6-1.2) Ao Diam 2.8 (2.0-3.7) 2 DIMENSIONAL ASSESSMENT: RIGHT ATRIUM: ENLARGED LEFT ATRIUM: SEVERE DILATED RIGHT VENTRICLE: NORMAL LEFT VENTRICLE: MILD LEFT VENTRICULAR HYPERTROPHY TRICUSPID VALVE: MODERATE TRICUSPID REGURGITATION MITRAL VALVE: MODERATE MITRAL REGURGITATION PULMONIC VALVE: NORMAL AORTIC VALVE: MODERATE AORTIC STENOSIS (AORTIC VALVE AREA 1.3 CENTIMETERS SQUARED, MEAN GRADIENT 20 mmHg) PERICARDIAL EFFUSION: NONE AORTIC ROOT: NORMAL LEFT VENTRICULAR WALL MOTION: NORMAL DOPPLER/COLOR FLOW: GRADE II DIASTOLIC DYSFUNCTION COMMENTS: 1. NORMAL LEFT VENTRICULAR SYSTOLIC FUNCTION, EJECTION FRACTION 55-60%, NORMAL WALL MOTION 2. GRADE III DIASTOLIC DYSFUNCTION 3. MODERATE TO SEVERE TRICUSPID REGURGITATION 4. SEVERE PULMONARY HYPERTENSION (RIGHT VENTRICULAR SYSTOLIC PRESSURE GREATER THAN 60 mmHg) 5. ELEVATED FILLING PRESSURE (RIGHT ATRIUM 15-20 mmHg) 6. MODERATE AORTIC VALVE STENOSIS (AORTIC VALVE AREA 1.3 CENTIMETERS SQUARED, MEAN GRADIENT 20 mmHg) 7. MODERATE MITRAL REGURGITATION 8. SEVERE DILATED LEFT ATRIUM TECHNOLOGIST: TRISTAN MENDES
[2024-05-16 16:34] LABS: Hematocrit 29.1 % (36.0-45.0); Hemoglobin 9.2 g/dL (12.0-15.0)
[2024-05-16] MEDS: NA CHLORIDE 0.9% 500 ML ONE (16:56)
--- NOTE | 2024-05-16 17:47 | EKG ---
Test Date: 2024-05-15 Test Time: 17:07:17 Weekend Caregiver: VALERIY MEASUREMENT RESULTS: Intervals: Rate: 67 FL: QRSD: 102 QT: 440 QTc: 464 [place]: P: FL: QRS: 17 T: 177 INTERPRETIVE STATEMENTS: Atrial fibrillation with premature ventricular or aberrantly conducted complexes ST & T wave abnormality, consider inferior ischemia or digitalis effect Abnormal ECG Compared to ECG 09/05/2023 09:22:30 No significant changes Electronically Signed On 05-16-24 17:45:19 CDT by Brayan Arceo
[2024-05-16] MEDS ORDERED: EPINEPHRINE 1 MG/ML VIAL ONE (17:52)
[2024-05-16] MEDS ORDERED: propofoL 200 MG/20 ML VIAL IV ONE (18:03)
[2024-05-16] MEDS ORDERED: NS 0.9% VIAL 0 ML ONE (18:03)
[2024-05-16] MEDS ORDERED: Phenylephrine HCl 10 MG/ML 1 ML VIAL ONE (18:03)
[2024-05-16] MEDS ORDERED: FUROSEMIDE 40 MG/4 ML VIAL IV SCH (19:00)
[2024-05-16] MEDS: GOLYTELY 4000 ML PO SCH (20:24)
[2024-05-16] MEDS: MAGNESIUM CITRATE 300 ML BOT PO SCH (20:25)
[2024-05-16] MEDS: ATORVASTATIN 80 MG TAB PO SCH (20:34)
[2024-05-16] MEDS: TRAZODONE 50 MG TABLET PO SCH (20:34)
--- NOTE | 2024-05-17 07:26 | P.PN ---
Date of Service: 05/17/24 Subjective EGD / Dr. Montague for GI bleed scheduled for colonoscopy today Hemoglobin stable at 9.2, received 1 unit of packed red blood cell Review of Systems 10-point ROS is otherwise unremarkable Physical Examination - Vital Signs reviewed - Physical Exam General: Alert, Oriented x3, generalized weakness HEENT: Atraumatic, Normocephalic Neck: Supple Respiratory: Clear to auscultation bilaterally, unlabored Cardiovascular: Regular rate/rhythm, Normal S1 S2 Capillary refill: <2 Seconds Gastrointestinal: Soft and benign, nontender Musculoskeletal: No clubbing, No swelling Integumentary: No rashes, No breakdown Neurological: Normal speech, Normal strength at 5/5 x4 extr, Lymphatics: No axilla or inguinal lymphadenopathy Assessment and Plan - Plan Acute on chronic CHF possibly systolic/diastolic Monitor closely on telemetry Started on aggressive diuresis Continue home medications Titrate as needed Will obtain an echocardiogram Cardiology consult GI bleed Severe anemia Anemia due to chronic disease/nutritional/chronic blood loss Will start on PPI H&H closely monitored Transfuse 2 units PRBC Monitor H&H closely GI following EGD scheduled 05/16/24, scheduled for colonoscopy PPI, octreotide Generalized weakness secondary to severe anemia PT eval Atrial fibrillation Rate controlled Continue home medications Hypertension Antihypertensives titrated Continue home medications and titrate as needed Hyperlipidemia Continue statin 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 Monitor renal parameters Electrolytes monitor and replace accordingly Diabetes Insulin sliding scale Accu-Chek before every meal and at bedtime CAD status post CABG Continue home medications Monitor closely on telemetry Patient denies any chest pain GI/DVT prophylaxis Advanced directive full code Discharge Plan: Home Plan to discharge in: 48 Hours - Advance Directives Does patient have a Living Will: No Does patient have a Durable POA for Healthcare: No - Code Status/Comfort Care Code Status: Full Code Time Spent Managing Pts Care (In Minutes): 35 <Tiffanie Petersen - Last Filed: 05/17/24 12:26> Patient was seen and examined. Events of the last 24 hours have been noted. Spoke with with ISAIAS regarding patient's clinical picture after evaluating and examining the patient independently. I performed a substantial part of the MDM during this patient's care today. I personally made or approved the documented management plan and acknowledge its risk of complications. I agree with the findings and documentation provided in the ISAIAS's notes. Patient has been diuresed. Hemoglobin has improved after 2 units. Continue with diuresing patient at this time. Monitor renal function closely. Monitor H&H. Transfusion is completed and hemoglobin has improved. Patient is status post 2 units of packed red blood cells transfused. GI consultation appreciated. EGD pending.. Hold anticoagulation at this time. Continue monitoring renal function. <Joy Gallego - Last Filed: 05/22/24 01:05>
[2024-05-17] MEDS: NA CHLORIDE 0.9% 1,000 ML ONE (10:00)
[2024-05-17] MEDS ORDERED: propofoL 200 MG/20 ML VIAL IV ONE (11:49)
[2024-05-17] MEDS: MORPHINE 2 MG/ML SYR IV PRN (15:02)
--- NOTE | 2024-05-17 16:38 | CON ---
Date of Consultation: 05/16/2024 Reason For Consultation: GI bleed with melena, hemoglobin of 6.2, anemia. History Of Present Illness: This patient is an 84-year-old white female with history of hypertension , hyperlipidemia, diabetes, coronary artery disease, congestive heart failure, atrial fibrillation, s tatus post CABG, cholecystectomy, and appendectomy. The patient presented to the hospital with short ness of breath. She started to report during the hospitalization of melena, hemoglobin drifted down to 6.2, shortness of breath, dizziness, and lightheadedness. She denies any hematochezia, hematemesi s, coffee-grounds emesis, hematuria, dysuria, polydipsia, hemoptysis, or other GI bleeding. She repo rts negative colonoscopy and E[facility] in 2016 at [facility] [place], [place]. Past Medical History: Significant for diabetes, hypertension, hyperlipidemia, coronary artery diseas e, congestive heart failure, atrial fibrillation, CABG surgery, cholecystectomy, and appendectomy. A lso, hypothyroidism. Medications: Include Eliquis, aspirin, Lipitor, Benadryl, gabapentin, Synthroid, potassium, Zofran, Desyrel, losartan, and Lasix. Allergies: SULFA AND BACTRIM. Social History: She is a . Has 1 son, 61 years old. No tobacco, no alcohol. Family History: Father of coronary artery disease and CABG. Also, had stroke. Mother of old age at 93 she reports. Physical Examination: Vital Signs: She is 5 feet 5 inches, 165 pounds, BMI 27.5 kg/sq m. Temperature 97.4 degrees Fahrenh eit, pulse 52, respirations 16, blood pressure 140/52, O2 sat 99% on room air. HEENT: Normocephalic, atraumatic. Pupils equal, round, and reactive to light. Anicteric. Orophary nx clear. Neck: Supple. No masses. Respirations: Clear to auscultation bilaterally. Cardiac: Regular rate and rhythm. Gastrointestinal: Positive bowel sounds. Soft, nontender, nondistended. No hepatosplenomegaly. Extremities: No clubbing, cyanosis, or edema. 2+ pulses. Neuro: Alert and oriented x3. Grossly nonfocal. 5/5 motor strength. Sensation intact to light mona ch. Data: The patient has a white count of 7.3; hemoglobin of 7.8, down to 6.2; hematocrit of 24.5; MCV of 84; platelet count of 272; polys of 77.7%, lymphocytes 14%, monocytes 8%, eosinophils 0.4%. PT 21 .4, INR of 1.95, PTT of 30.4. The patient has sodium 137, potassium 3.9, chloride 105, bicarb 25, BU N of 30, creatinine of 1.52, glucose 132, calcium of 8.9. Total bilirubin 0.9, AST of 36, ALT of 27, alkaline phosphatase 104, total protein 6.4, albumin 3.1, globulin 3.3. Lipase 15. Troponin normal at 30.3, 24.3, 28.8. UA showed 250 leukocyte esterase, rare white blood cell clumps, no squamous ep ithelial cells, otherwise slight mucus, otherwise negative. Chest x-ray was negative. Impression: 1.Gastrointestinal bleed with melena. Hemoglobin down to 6.2, got 3 units. Now, hemoglobin is up t o 9.2 up to 3 units. The patient has shortness of breath, lightheadedness, dizziness, but no hematoc hezia, hematemesis, coffee-grounds emesis, hemoptysis, hematuria, or other signs of gastrointestinal bleed. No nausea, vomiting, abdominal pain, syncope. Had negative [facility] and [facility]. 2.History of diabetes, hypertension, hyperlipidemia, coronary artery disease, congestive heart failu re, atrial fibrillation, coronary artery bypass graft in June 2022, hypothyroidism, cholecystectom y, appendectomy. Recommendations: 1.Continue serial H and H, and transfuse p.r.n. 2.PPI therapy. 3.EGD urgently. 4.IV fluids. 5.Keep the patient n.p.o. FRANCESCO/DASHA Voice ID: [id number] Report ID: [id number]
--- NOTE | 2024-05-17 18:11 | RAD REPORT ---
EXAM DESCRIPTION: RAD - Small Bowel Series - 05/17/2024 6:02 pm CLINICAL HISTORY: GI BLEED Abdominal pain COMPARISON: <Comparisons> FINDINGS: [employer] Technician film shows a nonspecific bowel gas pattern. No obstruction or free air. No suspiciou s calcifications. Gastric size and mucosal fold pattern are normal. No delay in transit of contrast into the small be l. Small bowel is normal in diameter with no mucosal fold thickening. No intrinsic or extrinsic mass identifiable. Terminal ileum has normal appearance. Transit time to the colon is normal. No fluoroscopy was performed. Total images acquired: 8 IMPRESSION: Normal small bowel series.
--- NOTE | 2024-05-18 06:18 | P.DS ---
Admission Date: 05/15/24 Discharge Date: 05/18/24 Disposition: ROUTINE DISCHARGE Discharge Condition: GOOD Reason for Admission: SOB Brief History of Present Illness: 84 yo Female with past medical history of hypertension, hyperlipidemia, A-fib, CAD status post CABG 2021, hypothyroidism, CHF, history of anemia, diabetes, who was brought to the ER with generalized weakness and shortness of breath which has been progressively getting worse over the last 2 to 3 days. Patient denies any chest pain. But she is short of breath with even minimal activities. Patient states that walking to the fridge will take at least 3 stops and needing to rest even walking up to 4 to 5 feet. Patient denies any fever or chills. No nausea vomiting or diarrhea. Patient denies any falls. Patient was assessed in the ER and is admitted for further management of anemia. She is on blood thinners. Patient denies any hematemesis but has black stools no tarry stool though. - Physical Exam General: Alert, Oriented x3, Mild distress, Other (Tired looking) HEENT: Atraumatic, Normocephalic Neck: Supple Respiratory: Clear to auscultation bilaterally, Normal air movement Cardiovascular: Regular rate/rhythm, Normal S1 S2 Capillary refill: <2 Seconds Gastrointestinal: Soft and benign, W/out hepatosplenomegaly, No ascites Musculoskeletal: No clubbing, No swelling Integumentary: No rashes, No breakdown Neurological: Normal speech, Normal strength at 5/5 x4 extr, Cranial nerves 3-12 intact, Normal reflexes 2+ Lymphatics: No axilla or inguinal lymphadenopathy Hospital Course: 84 yo Female with past medical history of hypertension, hyperlipidemia, A-fib, CAD status post CABG 2021, hypothyroidism, CHF, history of anemia, diabetes, who was brought to the ER with generalized weakness and shortness of breath which has been progressively getting worse over the last 2 to 3 days. She was noted to have severe anemia hemoglobin 6.2, she received a total of 2 units packed red blood cells, repeat H&H is stable 9.2 she was evaluated by Dr. Montague for EGD and colonoscopy, small bowel series, plan to advance diet, patient is tolerating diet, stable to discharge home, follow-up with PCP in 7 to 10 days. Assessment Severe anemia, 6.2, received 2 units of packed red blood cells, repeat hemoglobin 9.2, GI bleed Status post GI consult, EGD colonoscopy, small bowel series Aortic valve stenosis, follow-up with cardiology after discharge A-fib, anticoagulation, on chronic anticoagulation 05/15 Echocardiogram ORMAL LEFT VENTRICULAR SYSTOLIC FUNCTION, EJECTION FRACTION 55-60%, NORMAL WALL MOTION 2. GRADE III DIASTOLIC DYSFUNCTION 3. MODERATE TO SEVERE TRICUSPID REGURGITATION 4. SEVERE PULMONARY HYPERTENSION (RIGHT VENTRICULAR SYSTOLIC PRESSURE GREATER THAN 60 mmHg) 5. ELEVATED FILLING PRESSURE (RIGHT ATRIUM 15-20 mmHg) 6. MODERATE AORTIC VALVE STENOSIS (AORTIC VALVE AREA 1.3 CENTIMETERS SQUARED, MEAN GRADIENT 20 mmHg) 7. MODERATE MITRAL REGURGITATION 8. SEVERE DILATED LEFT ATRIUM New medications PPI twice daily Follow-up with GI with any additional rectal bleeding Small bowel series unremarkable, Continue home medicines as previously prescribed GOAL: Clear understanding of disease process INSTRUCTIONS: Physician Discharge Instructions: -Follow-up with PCP in 1 to 2 weeks -Please call Dr. Gallego at [phone] if any questions regarding hospital stay -Please call nursing station at [phone] if any nursing or medication questions -Return to the emergency room if symptoms worsen Diet: ADA, low sodium Activity: Fall precautions Vital Signs/Physical Exam: Temp Pulse Resp BP Pulse Ox 97.6 F 55 15 102/50 L 99 05/18/24 04:00 05/18/24 04:00 05/18/24 04:00 05/18/24 04:00 05/18/24 04:00 Laboratory Data at Discharge: WBC 7.30 thou/uL (4.3-10.9) 05/16/24 07:04 Hgb 9.2 g/dL (12.0-15.0) L D 05/16/24 16:25 Hct 29.1 % (36.0-45.0) L 05/16/24 16:25 Plt Count 272 thou/uL (152-406) 05/16/24 07:04 PT 21.4 SECONDS (9.4-12.5) H 05/15/24 17:14 INR 1.95 05/15/24 17:14 APTT 30.4 SECONDS (24.3-36.9) 05/15/24 17:14 Sodium 137 mEq/L (136-145) D 05/16/24 07:04 Potassium 3.9 mEq/L (3.5-5.1) 05/16/24 07:04 BUN 30 mg/dL (7-18) H 05/16/24 07:04 Creatinine 1.52 mg/dL (0.55-1.02) H 05/16/24 07:04 Glucose 132 mg/dL (74-106) H 05/16/24 07:04 Magnesium 2.1 mg/dL (1.6-2.4) 05/15/24 17:14 Total Bilirubin 0.9 mg/dL (0.2-1.0) 05/16/24 07:04 AST 36 U/L (15-37) 05/16/24 07:04 ALT 27 U/L (13-56) 05/16/24 07:04 Alkaline Phosphatase 104 U/L (45-117) 05/16/24 07:04 Lipase 15 U/L (13-75) 05/15/24 17:14 Home Medications: Apixaban [Eliquis *] 2.5 mg PO BID 11/07/22 Aspirin [Kamila Chewable Aspirin] 81 mg PO DAILY 11/07/22 Atorvastatin Calcium [Lipitor] 80 mg PO BEDTIME 11/07/22 Diphenhydramine HCl [Benadryl] 50 mg PO BID PRN 11/07/22 Gabapentin 300 mg PO TID 11/07/22 Levothyroxine [Synthroid*] 100 mcg PO DAILY 12/13/22 Potassium Gluconate [Potassium] 99 mg PO DAILY 12/13/22 Ondansetron HCl 4 mg PO Q6HP PRN 09/05/23 Trazodone [Desyrel*] 50 mg PO BEDTIME 09/10/23 Losartan Potassium 25 mg PO DAILY #30 tab 09/11/23 Furosemide [Lasix*] 20 mg PO DAILY 05/15/24 Hydralazine HCl 10 mg PO BID 05/15/24 Physician Discharge Instructions: 84 yo Female with past medical history of hypertension, hyperlipidemia, A-fib, CAD status post CABG 2021, hypothyroidism, CHF, history of anemia, diabetes, who was brought to the ER with generalized weakness and shortness of breath which has been progressively getting worse over the last 2 to 3 days. She was noted to have severe anemia hemoglobin 6.2, she received a total of 2 units packed red blood cells, repeat H&H is stable 9.2 she was evaluated by Dr. Sweat for EGD and colonoscopy, small bowel series, plan to advance diet, patient is tolerating diet, stable to discharge home, follow-up with PCP in 7 to 10 days. Assessment Severe anemia, 6.2, received 2 units of packed red blood cells, repeat hemoglobin 9.2, GI bleed Status post GI consult, EGD colonoscopy, small bowel series 05/15 Echocardiogram ORMAL LEFT VENTRICULAR SYSTOLIC FUNCTION, EJECTION FRACTION 55-60%, NORMAL WALL MOTION 2. GRADE III DIASTOLIC DYSFUNCTION 3. MODERATE TO SEVERE TRICUSPID REGURGITATION 4. SEVERE PULMONARY HYPERTENSION (RIGHT VENTRICULAR SYSTOLIC PRESSURE GREATER THAN 60 mmHg) 5. ELEVATED FILLING PRESSURE (RIGHT ATRIUM 15-20 mmHg) 6. MODERATE AORTIC VALVE STENOSIS (AORTIC VALVE AREA 1.3 CENTIMETERS SQUARED, MEAN GRADIENT 20 mmHg) 7. MODERATE MITRAL REGURGITATION 8. SEVERE DILATED LEFT ATRIUM New medications PPI twice daily Follow-up with GI with any additional rectal bleeding Small bowel series unremarkable, Continue home medicines as previously prescribed GOAL: Clear understanding of disease process INSTRUCTIONS: Physician Discharge Instructions: -Follow-up with PCP in 1 to 2 weeks -Please call Dr. Gallego at [phone] if any questions regarding hospital stay -Please call nursing station at [phone] if any nursing or medication questions -Return to the emergency room if symptoms worsen Diet: ADA, low sodium Activity: Fall precautions Diet: AHA Activity: Fall precautions Followup: Darryl Currie DO [Primary Care Provider] - Cody Peñaloza MD [ASSOCIATE-ACTIVE - CAN ADMIT] - Time spent managing pt's care (in minutes): 55
[2024-05-18 07:23] LABS: Absolute Monocytes 0.7 K/uL (0.1-1.3); Absolute Neutrophil 5.7 K/uL (1.8-8.0); Basophils % 0.4 % (0-1.3); Eosinophils % 0.6 % (0-4.4); Hematocrit 28.7 % (36.0-45.0); Lymphocytes % 13.7 % (15.3-44.8); MCH 27.1 pg (27.0-35.0); MCHC 31.3 g/dL (32.0-36.0); MCV 86.3 fL (80-100); MPV 7.6 fL (7.6-11.3); Monocytes % 9.5 % (3.3-12.3); Neutrophils % 75.8 % (41.7-73.7); Platelets 236 thou/uL (152-406); RBC Red Blood Cell Count 3.33 M/uL (3.86-4.86); Red Cell Distribution Width 17.1 % (12.1-15.2)
[2024-05-18 07:37] LABS: Albumin 2.9 g/dL (3.4-5.0); Albumin/Globulin Ratio 0.9 (1.1-1.8); Anion Gap 7.8 mEq/L (5.0-15.0); Bilirubin Total 1.5 mg/dL (0.2-1.0); Globulin 3.2 g/dL (2.3-3.5); Potassium 4.8 mEq/L (3.5-5.1); Protein, Total 6.1 g/dL (6.4-8.2)
[2024-05-18] MEDS: PANTOPRAZOLE 40MG TABLET PO SCH (15:45)
--- NOTE | 2024-05-18 17:17 | P.PN ---
Date of Service: 05/18/24 Subjective ambulated with PT today, HH stable no rectal bleeding today Review of Systems 10-point ROS is otherwise unremarkable Physical Examination - Vital Signs reviewed - Physical Exam General: Alert, Oriented x3, no acute distress noted HEENT: Atraumatic, Normocephalic Neck: Supple Respiratory: Clear to auscultation bilaterally, Cardiovascular: Regular rate/rhythm, Normal S1 S2 Capillary refill: <2 Seconds Gastrointestinal: Soft and benign, nontender Musculoskeletal: No clubbing, No swelling Integumentary: No rashes, No breakdown Neurological: Normal speech, Normal strength at 5/5 x4 extr, Lymphatics: No axilla or inguinal lymphadenopathy Assessment and Plan - Plan Acute on chronic CHF possibly systolic/diastolic improved Monitor closely on telemetry Started on aggressive diuresis Continue home medications Titrate as needed Will obtain an echocardiogram Cardiology consult GI bleed improved Severe anemia improved Anemia due to chronic disease/nutritional/chronic blood loss Will start on PPI H&H closely monitored Transfuse 2 units PRBC Monitor H&H closely GI following EGD scheduled 05/16/24, scheduled for colonoscopy PPI, octreotide Generalized weakness secondary to severe anemia PT eval pt has RW at home Atrial fibrillation Rate controlled Continue home medications Hypertension Antihypertensives titrated Continue home medications and titrate as needed Hyperlipidemia Continue statin 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 Monitor renal parameters Electrolytes monitor and replace accordingly 05/18 500 cc NS x1 Diabetes Insulin sliding scale Accu-Chek before every meal and at bedtime CAD status post CABG Continue home medications Monitor closely on telemetry Patient denies any chest pain GI/DVT prophylaxis Advanced directive full code Discharge Plan: Home Plan to discharge in: 48 Hours - Advance Directives Does patient have a Living Will: No Does patient have a Durable POA for Healthcare: No - Code Status/Comfort Care Code Status: Full Code Time Spent Managing Pts Care (In Minutes): 35 <Tiffanie Petersen - Last Filed: 05/18/24 17:10> Patient was seen and examined. Events of the last 24 hours have been noted. Spoke with with ISAIAS regarding patient's clinical picture after evaluating and examining the patient independently. I performed a substantial part of the MDM during this patient's care today. I personally made or approved the documented management plan and acknowledge its risk of complications. I agree with the findings and documentation provided in the ISAIAS's notes. Patient has been diuresed. EGD obtained. Patient with gastritis and gastric erosions as well as duodenitis and a gastric polyp. No active bleeding noted. Hemoglobin is stable after 2 units of packed red blood cell have been transfused. Continue with diuresing patient. Monitor renal function has worsened. Nephrology was consulted and they are recommending even more aggressive diuresing. Will monitor patient's volume status closely. Monitor H&H. GI consultation appreciated. EGD pending results obtained and colonoscopy pending. Holding anticoagulation at this time. Continue monitoring renal function. No signs of active bleeding and patient may need PillCam as an outpatient. <Joy Gallego - Last Filed: 05/22/24 01:09>
[2024-05-18] MEDS: NA CHLORIDE 0.9% 500 ML IV SCH (17:28)
[2024-05-18] MEDS: HYDROCODONE/APAP 5/325 MG TAB PO PRN (22:14)
[2024-05-19] MEDS: HYDROMORPHONE HCL 0.5 MG/0.5 ML INJ IV ONE (09:47)
--- NOTE | 2024-05-19 10:04 | RAD REPORT ---
EXAM DESCRIPTION: Marvin Single View05/19/2024 9:33 am CLINICAL HISTORY: Hypoxia COMPARISON: May 16, 2024 FINDINGS: Mild bilateral interstitial lung opacities Heart is moderately enlarged IMPRESSION: Mild bilateral interstitial lung opacities may indicate mild interstitial pulmonary singh a
[2024-05-19 10:36] LABS: Absolute Eosinophils 0.1 K/uL (0-0.5); Absolute Lymphocytes (CBC) 0.8 K/uL (0.7-4.9); Absolute Monocytes 0.8 K/uL (0.1-1.3); Basophils % 0.2 % (0-1.3); Eosinophils % 0.8 % (0-4.4); Hematocrit 28.8 % (36.0-45.0); Lymphocytes % 8.8 % (15.3-44.8); MCH 27.2 pg (27.0-35.0); MCHC 31.1 g/dL (32.0-36.0); MCV 87.3 fL (80-100); MPV 8.1 fL (7.6-11.3); Monocytes % 8.9 % (3.3-12.3); Neutrophils % 81.3 % (41.7-73.7); Nucleated Red Blood Cells % 0.1 % (0-0); Platelets 208 thou/uL (152-406); Red Cell Distribution Width 17.2 % (12.1-15.2)
[2024-05-19 10:52] LABS: Magnesium 2.5 mg/dL (1.6-2.4)
[2024-05-19 10:54] LABS: Albumin 2.8 g/dL (3.4-5.0); Anion Gap 8.5 mEq/L (5.0-15.0); Phosphorus 3.4 mg/dL (2.5-4.9); Potassium 4.5 mEq/L (3.5-5.1)
[2024-05-19] MEDS: FUROSEMIDE 40 MG TABLET PO ONE (13:03)
--- NOTE | 2024-05-19 14:01 | P.PN ---
Date of Service: 05/19/24 Subjective Shortness of breath today, Lasix added, CHANDAN, CKD, nephrology consulted for pulmonary edema, Review of Systems 10-point ROS is otherwise unremarkable Physical Examination - Vital Signs reviewed - Physical Exam General: Alert, Oriented x3, shortness of breath with exertion HEENT: Atraumatic, Normocephalic Neck: Supple Respiratory: Crackles, 90% on room air, 2 L Cardiovascular: Regular rate/rhythm, Normal S1 S2 Capillary refill: <2 Seconds Gastrointestinal: Soft and benign, nontender Musculoskeletal: No clubbing, No swelling Integumentary: No rashes, No breakdown Neurological: Normal speech, Normal strength at 5/5 x4 extr, Lymphatics: No axilla or inguinal lymphadenopathy Assessment and Plan - Plan Acute on chronic CHF possibly systolic/diastolic Monitor closely on telemetry Started on aggressive diuresis Continue home medications Titrate as needed Will obtain an echocardiogram Cardiology consult GI bleed improved Severe anemia improved Anemia due to chronic disease/nutritional/chronic blood loss Will start on PPI H&H closely monitored Transfuse 2 units PRBC Monitor H&H closely GI following EGD scheduled 05/16/24, scheduled for colonoscopy PPI, octreotide Generalized weakness secondary to severe anemia PT eval pt has RW at home Atrial fibrillation Rate controlled Continue home medications Hypertension Antihypertensives titrated Continue home medications and titrate as needed Hyperlipidemia Continue statin 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 Monitor renal parameters Electrolytes monitor and replace accordingly 05/18 500 cc NS x1 CHANDAN Nephrology consulted to manage diuretic Diabetes Insulin sliding scale Accu-Chek before every meal and at bedtime CAD status post CABG Continue home medications Monitor closely on telemetry Patient denies any chest pain GI/DVT prophylaxis Advanced directive full code Discharge Plan: Home Plan to discharge in: 48 Hours - Advance Directives Does patient have a Living Will: No Does patient have a Durable POA for Healthcare: No - Code Status/Comfort Care Code Status: Full Code Time Spent Managing Pts Care (In Minutes): 35 <Tiffanie Petersen - Last Filed: 05/19/24 13:58> Patient was seen and examined. Events of the last 24 hours have been noted. Spoke with with ISAIAS regarding patient's clinical picture after evaluating and examining the patient independently. I performed a substantial part of the MDM during this patient's care today. I personally made or approved the documented management plan and acknowledge its risk of complications. I agree with the findings and documentation provided in the ISAIAS's notes. Patient has been diuresed. EGD obtained. Patient with gastritis and gastric erosions as well as duodenitis and a gastric polyp. No active bleeding noted. Colonoscopy with internal hemorrhoids noted. No signs of active bleeding. Hemoglobin is stable after 2 units of packed red blood cell have been transfused. Continue with diuresing patient. Renal function has stabilized. Nephrology was consulted and Lasix increased to 3 times daily. Will monitor brii langston's volume status closely. Monitor H&H. GI consultation appreciated. EGD pending results obtained and colonoscopy pending. Holding anticoagulation at this time. Continue monitoring renal function. No signs of active bleeding and patient may need PillCam as an outpatient. <Joy Gallego - Last Filed: 05/22/24 01:10>
--- NOTE | 2024-05-19 17:27 | P.PN ---
Subjective Date of Service: 05/19/24 Chief Complaint: GI bleed, melena, SOB Subjective: Improving (No further GI bleeding noted. Hgb stable at 9.0.) Review of Systems 10-point ROS is otherwise unremarkable General: Weakness (Improved. ) Physical Examination - Vital Signs Temperature: 97.1 F Blood Pressure: 117/53 Pulse: 75 Respirations: 12 Pulse Ox (%): 90 Assessment And Plan - Current Problems (Diagnosis) (1) Melena Current Visit: Yes Status: Acute (2) Anemia Current Visit: Yes Status: Acute (3) GIB (gastrointestinal bleeding) Current Visit: Yes Status: Acute - Plan REC: 1) continue acid suppression 2) monitor H&Hs and transfuse prn 3) GI clinic f/u
--- NOTE | 2024-05-19 18:02 | P.CNS ---
Date of Consult: 05/19/24 Reason for Consult: CHANDAN, CKD Requesting Physician: Tiffanie Petersen Chief Complaint: GI bleed, melena, SOB History of Present Illness: 84 yo [place] Female with past medical history of significant cardiovascular disease including CAD status post CABG with last LHC in Aug of last year during prior admission here, a hx of unspecified Afib, diastolic CHF, valvular heart disease, renal insufficiency and anemia who has not had OP PCP care and was primarily seeing Cardiology came in with generalized weakness and shortness of breath which has been progressively getting worse over the prior few days Pt was found to be severely anemic and acknowledged having some dark stools. GI did do scopes on this admission, pt received blood transfusions. Pt feels a bit better since coming in but still short of breath with exertion and with hypoxia, O2 sats dropping and needing LFNC. She is also having some Rt frontal SHUKLA. Allergies sulfamethoxazole [From Bactrim] Allergy (Verified 05/15/24 20:26) Hives trimethoprim [From Bactrim] Allergy (Verified 05/15/24 20:26) Hives Home Medications: Apixaban [Eliquis *] 2.5 mg PO BID 11/07/22 Aspirin [Kamila Chewable Aspirin] 81 mg PO DAILY 11/07/22 Atorvastatin Calcium [Lipitor] 80 mg PO BEDTIME 11/07/22 Diphenhydramine HCl [Benadryl] 50 mg PO BID PRN 11/07/22 Gabapentin 300 mg PO TID 11/07/22 Levothyroxine [Synthroid*] 100 mcg PO DAILY 12/13/22 Potassium Gluconate [Potassium] 99 mg PO DAILY 12/13/22 Ondansetron HCl 4 mg PO Q6HP PRN 09/05/23 Trazodone [Desyrel*] 50 mg PO BEDTIME 09/10/23 Losartan Potassium 25 mg PO DAILY #30 tab 09/11/23 Furosemide [Lasix*] 20 mg PO DAILY 05/15/24 Hydralazine HCl 10 mg PO BID 05/15/24 - Past Medical/Surgical History Diabetic: Yes -: HTN -: A.FIB -: CHF -: NIDDM -: CAD with CABG 2021 -: Hyperlipidemia -: Hypothyroid -: Cholecystectomy -: appendectomy -: CABG-04/2023 Psychosocial/ Personal History: Lives at home alone. Son lives nearby. - Family History Father Medical History: Heart disease Mother Medical History: Heart disease - Social History Smoking Status: Unknown if ever smoked Alcohol use: No CD- Drugs: No Caffeine use: Yes Place of Residence: Home Review of Systems General: Weakness Eyes: Other (Some tingling around Rt eye, hx of some left visual impairment) ENT: Unremarkable Respiratory: SOB with Excertion Cardiovascular: As per HPI Gastrointestinal: As per HPI Musculoskeletal: Unremarkable Integumentary: Unremarkable Neurological: Weakness Lymphatics: Unremarkable Physical Examination Temp Pulse Resp BP Pulse Ox 97.1 F 75 12 117/53 L 90 L 05/19/24 17:28 05/19/24 17:28 05/19/24 17:28 05/19/24 17:28 05/19/24 17:28 General: Other (Elderly, pale, frail) HEENT: Atraumatic, Normocephalic, Other (No tenderness across Rt temples) Neck: Supple Respiratory: Other (LFNC, non tachypnec, b/l air entry, reduced at bases) Cardiovascular: Other (Irregular, cardiac murmur at USB) Gastrointestinal: Soft and benign, No guarding Musculoskeletal: No swelling, No contractures Integumentary: No rashes Neurological: Normal speech, Normal tone, Normal affect Conclusions/Impression: A/P) 1. Recurrent Stage I/II CHANDAN episodes on possible underlying CKD NOS, in the setting of hemodynamic factors including severe anemia, relative BP lowering, cardio-renal syndrome with elevated filling pressures noted on her TTE UA on admission was not too remarkable. 2. Cr level has been rising back up. Need strict UOP monitoring, will request random bladder scan and Purewick if there is no retention confirmed 3. 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 Ischemic CMP. Afib unspecified. Will place on scheduled Lasix and monitor response. Consider consulting Cardiology, Dr. Reyes who knows her case well 4. Chronic HTN with relative hypotension -monitor BP range closely, no TORIBIO inhibitors currently 5. Acute loss anemia -s/p 2 units PRBC, trend H/H closely Thank you for this referral, Donis Nguyễn
[2024-05-19] MEDS: FUROSEMIDE 40 MG/4 ML VIAL IV SCH (18:53)
--- NOTE | 2024-05-20 06:19 | P.PN ---
Date of Service: 05/20/24 Subjective Resting quietly in bed, nephrology following, Cardiology consulted for heart failure evaluation,, 94% on 2l Review of Systems 10-point ROS is otherwise unremarkable Physical Examination - Vital Signs reviewed - Physical Exam General: Alert, Oriented x3, no acute distress noted HEENT: Atraumatic, Normocephalic Neck: Supple Respiratory: Crackles, 94% on room air, 2 L Cardiovascular: Regular rate/rhythm, Normal S1 S2 Capillary refill: <2 Seconds Gastrointestinal: Soft and benign, positive bowel sound Musculoskeletal: No clubbing, No swelling Integumentary: No rashes, No breakdown Neurological: Normal speech, Normal strength at 5/5 x4 extr, Lymphatics: No axilla or inguinal lymphadenopathy Assessment and Plan - Plan Acute on chronic CHF possibly systolic/diastolic Monitor closely on telemetry Started on aggressive diuresis Continue home medications Titrate as needed Will obtain an echocardiogram Cardiology consulted Previously echo completed Continue aspirin daily, 05/20 Patient would benefit from watchman outpatient per cardiology O2 2 L saturations improving yesterday were 90% today are 94% on 2 GI bleed improved Severe anemia improved Anemia due to chronic disease/nutritional/chronic blood loss Will start on PPI H&H closely monitored Transfuse 2 units PRBC Monitor H&H closely GI following EGD scheduled 05/16/24, scheduled for colonoscopy PPI, octreotide Generalized weakness secondary to severe anemia PT eval pt has RW at home Atrial fibrillation Rate controlled Continue home medications Cardiology recommends to continue aspirin daily Hypertension Antihypertensives titrated Continue home medications and titrate as needed Hyperlipidemia Continue statin 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 Monitor renal parameters Electrolytes monitor and replace accordingly 05/18 500 cc NS x1 CHANDAN Nephrology consulted to manage diuretic Diabetes Insulin sliding scale Accu-Chek before every meal and at bedtime CAD status post CABG Continue home medications Monitor closely on telemetry Patient denies any chest pain GI/DVT prophylaxis Advanced directive full code Discharge Plan: Home Plan to discharge in: 48 Hours - Advance Directives Does patient have a Living Will: No Does patient have a Durable POA for Healthcare: No - Code Status/Comfort Care Code Status: Full Code Time Spent Managing Pts Care (In Minutes): 35 <Tiffanie Petersen - Last Filed: 05/20/24 14:20> Patient was seen and examined. Events of the last 24 hours have been noted. Spoke with with ISAIAS regarding patient's clinical picture after evaluating and examining the patient independently. I performed a substantial part of the MDM during this patient's care today. I personally made or approved the documented management plan and acknowledge its risk of complications. I agree with the findings and documentation provided in the ISAIAS's notes. EGD and colonoscopy completed. Patient with gastritis and gastric erosions as well as duodenitis and a gastric polyp. No active bleeding noted. Colonoscopy with internal hemorrhoids. Hemoglobin is stable after 2 units of packed red blood cell have been transfused. Continue with diuresing patient. Renal function is stable. Nephrology was consulted and they are recommending even more aggressive diuresing. Will monitor patient's volume status closely. Monitor H&H. GI consultation appreciated. Holding anticoagulation at this time. Continue monitoring renal function. No signs of active bleeding and patient may need PillCam as an outpatient. May need Watchman procedure as well. <Joy Gallego - Last Filed: 05/22/24 01:12>
[2024-05-20 07:54] LABS: Absolute Lymphocytes (CBC) 0.8 K/uL (0.7-4.9); Absolute Monocytes 0.8 K/uL (0.1-1.3); Absolute Neutrophil 5.4 K/uL (1.8-8.0); Basophils % 0.3 % (0-1.3); Eosinophils % 0.7 % (0-4.4); Hematocrit 31.7 % (36.0-45.0); Hemoglobin 9.7 g/dL (12.0-15.0); Lymphocytes % 11.2 % (15.3-44.8); MCH 26.9 pg (27.0-35.0); MCHC 30.8 g/dL (32.0-36.0); MCV 87.4 fL (80-100); MPV 8.2 fL (7.6-11.3); Monocytes % 11.1 % (3.3-12.3); Neutrophils % 76.7 % (41.7-73.7); Nucleated Red Blood Cells % 0.2 % (0-0); Platelets 188 thou/uL (152-406); RBC Red Blood Cell Count 3.62 M/uL (3.86-4.86); Red Cell Distribution Width 17.4 % (12.1-15.2)
[2024-05-20 08:04] LABS: Albumin 2.9 g/dL (3.4-5.0); Anion Gap 6.8 mEq/L (5.0-15.0); Phosphorus 4.3 mg/dL (2.5-4.9); Potassium 4.8 mEq/L (3.5-5.1)
[2024-05-20 08:09] LABS: Magnesium 2.5 mg/dL (1.6-2.4)
--- NOTE | 2024-05-20 10:54 | P.PN ---
(S) Feels about the same, no acute dyspnea, on LFNC, no large vol diuresis reported on external urinary cath monitoring with lasix initiation in fact <1L (O) vitals reviewed in the EMR General: Other (Elderly, pale, frail) HEENT: Atraumatic, Normocephalic, Other (No tenderness across Rt temples) Neck: Supple Respiratory: Other (LFNC, non tachypnec, b/l air entry, reduced at bases) Cardiovascular: Other (Irregular, cardiac murmur at USB) Gastrointestinal: Soft and benign, No guarding Musculoskeletal: No swelling, No contractures Integumentary: No rashes Neurological: Normal speech, Normal tone, Normal affect Conclusions/Impression: A/P) 1. Recurrent Stage I/II CHANDAN episodes on possible underlying CKD NOS, in the setting of hemodynamic factors including severe anemia, relative BP lowering, cardio-renal syndrome with elevated filling pressures noted on her TTE UA on admission was not too remarkable. 2. Cr level has been rising back up although plateaued this AM. Need strict UOP monitoring, diod request random bladder scan and Purewick if there is no retention confirmed 3. 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 Ischemic CMP. Afib unspecified. Did place on scheduled Lasix and escalated and will monitor response closely. Consider consulting Cardiology, Dr. Reyes who knows her case well. 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 Chronic HTN with relative hypotension -monitor BP range closely, no longer low, trend for now, no TORIBIO inhibitors currently 5. Acute loss anemia -s/p 2 units PRBC, trend H/H closely Donis Nguyễn
[2024-05-20] MEDS: FUROSEMIDE 40 MG/4 ML VIAL IV SCH (12:17)
--- NOTE | 2024-05-20 13:41 | P.CNS ---
Date of Consult: 05/20/24 Chief Complaint: GI bleed, melena, SOB History of Present Illness: Patient with PMH of atrial fibrillation, CAD s/p CABG, heart failure, presented with low Hgb, GI bleed, s/p transfusion of 3 units of blood, she report that she was having SOB that got better after transfusion, no chest pain, no palpitations, no dizziness, no syncope. Allergies sulfamethoxazole [From Bactrim] Allergy (Verified 05/15/24 20:26) Hives trimethoprim [From Bactrim] Allergy (Verified 05/15/24 20:26) Hives Home medications list reviewed: Yes Home Medications: Apixaban [Eliquis *] 2.5 mg PO BID 11/07/22 Aspirin [Kamila Chewable Aspirin] 81 mg PO DAILY 11/07/22 Atorvastatin Calcium [Lipitor] 80 mg PO BEDTIME 11/07/22 Diphenhydramine HCl [Benadryl] 50 mg PO BID PRN 11/07/22 Gabapentin 300 mg PO TID 11/07/22 Levothyroxine [Synthroid*] 100 mcg PO DAILY 12/13/22 Potassium Gluconate [Potassium] 99 mg PO DAILY 12/13/22 Ondansetron HCl 4 mg PO Q6HP PRN 09/05/23 Trazodone [Desyrel*] 50 mg PO BEDTIME 09/10/23 Losartan Potassium 25 mg PO DAILY #30 tab 09/11/23 Furosemide [Lasix*] 20 mg PO DAILY 05/15/24 Hydralazine HCl 10 mg PO BID 05/15/24 Carboxymethylcellulose Sodium [Refresh Tears] 1 drop OPTH TID 05/20/24 - Past Medical/Surgical History Diabetic: Yes -: HTN -: A.FIB -: CHF -: NIDDM -: CAD with CABG 2021 -: Hyperlipidemia -: Hypothyroid -: Cholecystectomy -: appendectomy -: CABG-04/2023 Psychosocial/ Personal History: Lives at home alone. Son lives nearby. - Family History Father Medical History: Heart disease Mother Medical History: Heart disease - Social History Smoking Status: Unknown if ever smoked Alcohol use: No CD- Drugs: No Caffeine use: Yes Place of Residence: Home Review of Systems 10-point ROS is otherwise unremarkable Physical Examination Temp Pulse Resp BP Pulse Ox 98.5 F 59 16 138/63 99 05/20/24 12:00 05/20/24 12:00 05/20/24 12:00 05/20/24 12:00 05/20/24 12:00 General: Alert, In no apparent distress HEENT: Atraumatic, PERRLA, Mucous membr. moist/pink, EOMI, Sclerae nonicteric Neck: Supple, 2+ carotid pulse no bruit, No LAD, Without JVD or thyroid abnormality Respiratory: Diminished, Crackles/rales Cardiovascular: Irregular heart rate/rhythm Gastrointestinal: Normal bowel sounds, No tenderness Musculoskeletal: No tenderness Integumentary: No rashes Neurological: Normal gait, Normal speech, Normal tone, Normal affect Lymphatics: No axilla or inguinal lymphadenopathy - Problems (1) Acute on chronic diastolic heart failure Current Visit: Yes Status: Acute Plan: agree with IV diuresis and monitor kidney function, input and output Echo shows Grade 3 DD with elevated filling pressures. (2) Coronary artery disease involving autologous artery coronary bypass graft Current Visit: Yes Status: Acute Plan: stable, patient had a coronary angiogram recently that shows patent MILLAN-LAD and SVG-D grafts. (3) Atrial fibrillation Current Visit: No Status: Chronic Plan: currently in AF rate controlled, not on anticoagulation due to recent GI bleed, this patient will benefit from watchamn evaluation as outpatient but she still need anticoagulation clearance from GI around the time of procedure Continue ASA 81 g daily Qualifiers: Atrial fibrillation type: unspecified chronic Qualified Code(s): I48.20 - Chronic atrial fibrillation, unspecified; I48.2 - Chronic atrial fibrillation
[2024-05-20] MEDS: DIPHENHYDRAMINE 25 MG TAB/CAP PO PRN (23:21)
--- NOTE | 2024-05-21 06:58 | P.PN ---
Date of Service: 05/21/24 Subjective Resting quietly in bed, nephrology following, 94% on 1l US aortic IVC completed 05/21 resports constipation, stool softners added Recent GIB, EGD, no black tarry stools Review of Systems 10-point ROS as per HPI is otherwise unremarkable Physical Examination - Vital Signs reviewed - Physical Exam General: Alert, Oriented x3, no acute distress noted HEENT: Atraumatic, Normocephalic Neck: Supple Respiratory: Crackles, 94% on room air, 1 L Cardiovascular: Regular rate/rhythm, Normal S1 S2 Capillary refill: <2 Seconds Gastrointestinal: Soft and benign, nontender Musculoskeletal: No clubbing, No swelling Integumentary: No rashes, No breakdown Neurological: Normal speech, Normal strength at 5/5 x4 extr, Lymphatics: No axilla or inguinal lymphadenopathy Assessment and Plan - Plan Acute on chronic CHF possibly systolic/diastolic Monitor closely on telemetry Started on aggressive diuresis Continue home medications Titrate as needed Will obtain an echocardiogram Cardiology consulted Previously echo completed Continue aspirin daily, 05/20 Patient would benefit from watchman outpatient per cardiology O2 2 L saturations improving yesterday were 90% today are 94% on 2 GI bleed improved Severe anemia improved Anemia due to chronic disease/nutritional/chronic blood loss Constipation Will start on PPI H&H closely monitored Transfuse 2 units PRBC as needed hemoglobin less than 7 Monitor H&H closely GI following EGD scheduled 05/16/24, scheduled for colonoscopy PPI, octreotide -discontinued stool softener Generalized weakness secondary to severe anemia PT eval pt has RW at home Atrial fibrillation Rate controlled Continue home medications Cardiology recommends to continue aspirin daily Eliquis on hold due to GI bleed Hypertension Antihypertensives titrated Continue home medications and titrate as needed Hyperlipidemia Continue statin 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 Monitor renal parameters Electrolytes monitor and replace accordingly 05/18 500 cc NS x1 CHANDAN Nephrology consulted to manage diuretic Diabetes Insulin sliding scale Accu-Chek before every meal and at bedtime CAD status post CABG Continue home medications Monitor closely on telemetry Patient denies any chest pain GI/DVT prophylaxis Advanced directive full code Discharge Plan: Home Plan to discharge in: 48 Hours - Advance Directives Does patient have a Living Will: No Does patient have a Durable POA for Healthcare: No - Code Status/Comfort Care Code Status: Full Code Time Spent Managing Pts Care (In Minutes): 35 <Tiffanie Petersen - Last Filed: 05/21/24 09:04> Patient was seen and examined. Events of the last 24 hours have been noted. Spoke with with ISAIAS regarding patient's clinical picture after evaluating and examining the patient independently. I performed a substantial part of the MDM during this patient's care today. I personally made or approved the documented management plan and acknowledge its risk of complications. I agree with the findings and documentation provided in the ISAIAS's notes. Patient doing much better. Currently weaned off of oxygen and now on room air. Getting out of bed and ambulating. Hemoglobin has been stable and renal function is stable as well. At this time patient has been medically optimized in the hospital and possibly can be discharged in the morning with home health and physical therapy. Continue with outpatient cardiology and nephrology follow-up. Will reassess labs in the morning and discussed with consultants prior to discharging. <Joy Gallego - Last Filed: 05/22/24 02:28>
[2024-05-21 07:22] LABS: Absolute Eosinophils 0.1 K/uL (0-0.5); Absolute Lymphocytes (CBC) 0.8 K/uL (0.7-4.9); Absolute Monocytes 0.6 K/uL (0.1-1.3); Absolute Neutrophil 3.8 K/uL (1.8-8.0); Basophils % 0.5 % (0-1.3); Eosinophils % 1.3 % (0-4.4); Hemoglobin 8.5 g/dL (12.0-15.0); Lymphocytes % 14.3 % (15.3-44.8); MCHC 31.4 g/dL (32.0-36.0); MCV 86.3 fL (80-100); MPV 8.2 fL (7.6-11.3); Monocytes % 12.2 % (3.3-12.3); Neutrophils % 71.7 % (41.7-73.7); Nucleated Red Blood Cells % 0.1 % (0-0); Platelets 192 thou/uL (152-406); RBC Red Blood Cell Count 3.13 M/uL (3.86-4.86); Red Cell Distribution Width 17.5 % (12.1-15.2)
[2024-05-21 07:33] LABS: Specific Gravity 1.008 (1.005-1.030); Sqamous Epithelial <5 /HPF (None Seen); Urine Bacteria <20 /HPF (<20); Urine Bilirubin NEGATIVE (Negative); Urine Blood Negative (Negative); Urine Clarity Turbid (Clear); Urine Color Light-Yellow (Yellow); Urine Culture Reflex Order NOT NEEDED; Urine Glucose NEGATIVE (Negative); Urine Ketones NEGATIVE (Negative); Urine Micro Reflex YN NO BILL MICROSCOPIC; Urine Mucus Slight /HPF (None Seen); Urine Nitrite NEGATIVE (Negative); Urine Protein NEGATIVE (Negative); Urine RBC <5 /HPF (None Seen); Urine Urobilinogen Normal (Normal); Urine WBC <5 /HPF (<5)
[2024-05-21 07:40] LABS: Albumin 2.7 g/dL (3.4-5.0); Anion Gap 5.5 mEq/L (5.0-15.0); Phosphorus 3.3 mg/dL (2.5-4.9); Potassium 4.5 mEq/L (3.5-5.1)
[2024-05-21 07:41] LABS: Albumin 2.8 g/dL (3.4-5.0); Albumin/Globulin Ratio 0.9 (1.1-1.8); Anion Gap 5.5 mEq/L (5.0-15.0); Globulin 3.2 g/dL (2.3-3.5); Magnesium 2.3 mg/dL (1.6-2.4); Potassium 4.5 mEq/L (3.5-5.1)
[2024-05-21 07:44] LABS: Magnesium 2.2 mg/dL (1.6-2.4)
[2024-05-21] MEDS: ASPIRIN EC 81 MG TAB PO SCH (08:37)
[2024-05-21] MEDS: SPIRONOLACTONE 25 MG TABLET PO SCH (09:00)
--- NOTE | 2024-05-21 09:49 | RAD REPORT ---
EXAM DESCRIPTION: RADChest Single View05/21/2024 6:39 am CLINICAL HISTORY: pneumonia COMPARISON: Chest Single View dated 05/19/2024; Chest Single View dated 05/15/2024; Chest Single View dated 09/05/2023; Chest Single View dated 12/12/2022hest Single View dated 05/19/2024; Chest Single Vi ew dated 05/15/2024; Chest Single View dated 09/05/2023; Chest Single View dated 12/12/2022 TECHNIQUE: Portable AP view of the chest. FINDINGS: The lungs are clear. No pneumothorax or effusion. The cardiomediastinal contours are unch anged with the sequelae of median sternotomy. IMPRESSION: No acute cardiopulmonary process.
--- NOTE | 2024-05-21 09:51 | RAD REPORT ---
EXAM DESCRIPTION: US - Aorta Ivc Iliacs Complete - 05/21/2024 6:13 am CLINICAL HISTORY: IVC collapase; COMPARISON: Small Bowel Series dated 05/17/2024 TECHNIQUE: Real-time sonographic interrogation of the IVC was performed. FINDINGS: The IVC is patent throughout its visualized segments proximally to distally. Limited visua lization of the confluence of the common iliac veins, with no sonographic evidence of focal stenosis. The visualized hepatic veins are patent. IMPRESSION: Patent visualized segments of the inferior vena cava.
--- NOTE | 2024-05-21 12:18 | P.PN ---
(S) Clinically doing about the same, on LFNC, a bit lethargic but awakens easily, responds briefly. Cardiology consult and reccs noted. (O) vitals reviewed in the EMR General: Other (Elderly, pale, frail) HEENT: Atraumatic, Normocephalic, Other (No tenderness across Rt temples) Neck: Supple Respiratory: Other (LFNC, non tachypnec, b/l air entry, reduced at bases) Cardiovascular: Other (Irregular, cardiac murmur at USB) Gastrointestinal: Soft and benign, No guarding Musculoskeletal: No swelling, No contractures Integumentary: No rashes Neurological: Normal speech, Normal tone, Normal affect Conclusions/Impression: A/P) 1. Recurrent Stage I/II CHANDAN episodes on possible underlying CKD NOS, in the setting of hemodynamic factors including severe anemia, relative BP lowering, cardio-renal syndrome with elevated filling pressures noted on her TTE UA on admission was not too remarkable. 2. Cr level has peaked and marginally lower. Need strict UOP monitoring, did request random bladder scan and Purewick if there is no retention confirmed. More UOP recorded than on prev days but no large vol diuresis and still < 2L but unclear if nursing staff are properly recording output. 3. 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 Ischemic CMP. Afib unspecified. Did place on scheduled Lasix and escalated and will monitor response closely. Added low dose Spironolactone which can be raised as CrCl recovers 4. Chronic HTN with relative hypotension -monitor BP range closely, no longer low, trend for now, no TORIBIO inhibitors currently 5. Acute loss anemia -s/p 2 units PRBC, trend H/H closely Donis Nguyễn
--- NOTE | 2024-05-21 14:51 | P.PN ---
Subjective Date of Service: 05/21/24 Chief Complaint: GI bleed, melena, SOB Subjective: No new changes, No C/O voiced, Tolerating diet, Ambulating, Improving Review of Systems 10-point ROS is otherwise unremarkable Physical Examination - Vital Signs Temperature: 98.4 F Blood Pressure: 159/71 Pulse: 55 Respirations: 16 Pulse Ox (%): 95 - Physical Exam General: Alert, In no apparent distress HEENT: Atraumatic, PERRLA, EOMI Neck: Supple, JVD not distended Respiratory: Clear to auscultation bilaterally, Normal air movement Cardiovascular: Regular rate/rhythm, Normal S1 S2 Gastrointestinal: Normal bowel sounds, No tenderness Musculoskeletal: No tenderness Integumentary: No rashes Neurological: Normal speech, Normal tone, Normal affect Lymphatics: No axilla or inguinal lymphadenopathy - Studies Medications List Reviewed: Yes Assessment And Plan - Current Problems (Diagnosis) (1) Acute on chronic diastolic heart failure Current Visit: Yes Status: Acute Plan: agree with IV diuresis and monitor kidney function, input and output Echo shows Grade 3 DD with elevated filling pressures. (2) Coronary artery disease involving autologous artery coronary bypass graft Current Visit: Yes Status: Acute Plan: stable, patient had a coronary angiogram recently that shows patent MILLAN-LAD and SVG-D grafts. (3) Atrial fibrillation Current Visit: No Status: Chronic Plan: currently in AF rate controlled, not on anticoagulation due to recent GI bleed, this patient will benefit from watchamn evaluation as outpatient but she still need anticoagulation clearance from GI around the time of procedure Continue ASA 81 g daily Qualifiers: Atrial fibrillation type: unspecified chronic Qualified Code(s): I48.20 - Chronic atrial fibrillation, unspecified; I48.2 - Chronic atrial fibrillation
--- NOTE | 2024-05-21 19:29 | P.PN ---
Subjective Date of Service: 05/21/24 Chief Complaint: GI bleed, melena, SOB Subjective: Improving (Slowly improving) Physical Examination - Vital Signs Temperature: 98.3 F Blood Pressure: 147/68 Pulse: 59 Respirations: 16 Pulse Ox (%): 95 - Studies Medications List Reviewed: Yes Assessment And Plan - Current Problems (Diagnosis) (1) Melena Current Visit: Yes Status: Acute (2) Anemia Current Visit: Yes Status: Acute (3) GIB (gastrointestinal bleeding) Current Visit: Yes Status: Acute - Plan REC: 1) continue acid suppression 2) monitor H&Hs and transfuse prn 3) GI clinic f/u
[2024-05-21] MEDS: BISACODYL E.C. 5 MG TAB PO PRN (20:42)
[2024-05-22 06:01] LABS: Anion Gap 6.9 mEq/L (5.0-15.0); Potassium 3.9 mEq/L (3.5-5.1)
[2024-05-22 06:51] LABS: Hematocrit 18.5 % (36.0-45.0); Hemoglobin 6.1 g/dL (12.0-15.0)
[2024-05-22] MEDS: SPIRONOLACTONE 25 MG TABLET PO SCH (09:11)
[2024-05-22] MEDS: POTASSIUM CL SA 10 MEQ TAB PO ONE (09:12)
[2024-05-22] MEDS: NA CHLORIDE 0.9% 500 ML ONE (14:20)
--- NOTE | 2024-05-22 16:01 | P.PN ---
Subjective Date of Service: 05/22/24 Chief Complaint: GI bleed, melena, SOB Pt is resting comfortably in bed. Hgb is 6.1. Will give 2 units of blood. Pt is off AC. She will need watchmann device placement. No other complaints. Review of Systems General: Unremarkable Eyes: Unremarkable ENT: Unremarkable Respiratory: Unremarkable Cardiovascular: Unremarkable Gastrointestinal: Unremarkable Genitourinary: Unremarkable Musculoskeletal: Unremarkable Integumentary: Unremarkable Neurological: Unremarkable Lymphatics: Unremarkable Physical Examination - Vital Signs Temperature: 97.9 F Blood Pressure: 140/64 Pulse: 63 Respirations: 16 Pulse Ox (%): 93 - Physical Exam General: Alert, In no apparent distress, Oriented x3 HEENT: Atraumatic, Normocephalic, PERRLA Neck: Supple, 2+ carotid pulse no bruit, JVD not distended Respiratory: Clear to auscultation bilaterally, Normal air movement Cardiovascular: No edema, Normal pulses, Regular rate/rhythm Capillary refill: <2 Seconds Gastrointestinal: Normal bowel sounds, Soft and benign, Non-distended Musculoskeletal: No clubbing, No swelling, No contractures Integumentary: No rashes, No breakdown, No significant lesion Neurological: Normal gait, Normal speech, Normal strength at 5/5 x4 extr Lymphatics: No axilla or inguinal lymphadenopathy - Studies Medications List Reviewed: Yes Assessment And Plan - Plan Acute on chronic CHF, possibly systolic/diastolic: Will continue lasix, strict I/O and daily weight. Cardiology is following. Will f/u Echo. GI bleed: Will monitor H/H. Hgb is 6.1. Will give 2 more 2 units of blood. Continue protnix. Consulted GI. Will need endoscopy. A. fib: Will continue Telemetry, BB and hold eliquis. Pt will need watchmann device placement per cardiology Htn: continue home med HLD; statin DM II: Continue accuchek, SSI and ADA diet. CHANDAN on CKD: Cr is 1.77. Will continue IVF, avoid nephrotoxins and monitor renal function. Consulted Nephrology Hx of CAD s/p CABG; Continue home meds Generalized weakness secondary to severe anemia: Will continue fall precaution and PT. DVT ppx: SCD Code: full.
--- NOTE | 2024-05-22 21:14 | P.PN ---
Date of Service: 05/22/24 Vital Signs Temp Pulse Resp BP Pulse Ox 97.3 F 58 16 134/61 96 05/22/24 20:00 05/22/24 20:00 05/22/24 20:00 05/22/24 20:00 05/22/24 20:00 Medications Acetaminophen (Acetaminophen 325 Mg Tablet) 650 mg PO Q4HP PRN PRN Reason: TEMP > 100' F Hydrocodone Bitart/Acetaminophen (Hydrocodone/Apap 5/325 Mg Tab) 1 tab PO Q4H PRN PRN Reason: Pain scale 5-7 (Moderate) Last Admin: 05/22/24 16:33 Dose: 1 tab Albuterol Sulfate (Albuterol 2.5 Mg/3 Ml Neb [place]) 2.5 mg NEB Q6HP PRN PRN Reason: SHORTNESS OF BREATH Aspirin (Aspirin Ec 81 Mg Tab) 81 mg PO DAILY [facility] Last Admin: 05/22/24 09:12 Dose: 81 mg Atorvastatin Calcium (Atorvastatin 80 Mg Tab) 80 mg PO BEDTIME [facility] Last Admin: 05/21/24 20:42 Dose: 80 mg Bisacodyl (Bisacodyl E.C. 5 Mg Tab) 10 mg PO DAILY PRN PRN Reason: CONSTIPATION Last Admin: 05/21/24 20:42 Dose: 10 mg Diphenhydramine HCl (Diphenhydramine 25 Mg Tab/Cap) 50 mg PO BID PRN PRN Reason: ITCHING Last Admin: 05/20/24 23:21 Dose: 50 mg Furosemide (Furosemide 40 Mg/4 Ml Vial) 40 mg IV TID [facility] Last Admin: 05/22/24 13:31 Dose: 40 mg Gabapentin (Gabapentin 300 Mg Cap) 300 mg PO BID [facility] Last Admin: 05/22/24 09:00 Dose: 300 mg Ipratropium [place] (Ipratropium Brom 0.5mg/2.5ml) 0.5 mg NEB [id number] PRN PRN Reason: SHORTNESS OF BREATH Levothyroxine Sodium (Levothyroxine Sod 0.1 Mg Tab) 0.1 mg PO ACB [facility] Last Admin: 05/22/24 07:53 Dose: 0.1 mg Ondansetron HCl (Ondansetron 4 Mg/2 Ml Vial) 4 mg IV Q6HP PRN PRN Reason: NAUSEA / VOMITING Last Admin: 05/17/24 15:02 Dose: 4 mg Ondansetron HCl (Ondansetron 4 Mg (Odt) Tab) 4 mg PO Q6HP PRN PRN Reason: nausea Pantoprazole Sodium (Pantoprazole 40mg Tablet) 40 mg PO BIDAC [facility]; Protocol Last Admin: 05/22/24 16:33 Dose: 40 mg Spironolactone (Spironolactone 25 Mg Tablet) 12.5 mg PO DAILY [facility] Last Admin: 05/22/24 09:11 Dose: 12.5 mg Trazodone HCl (Trazodone 50 Mg Tablet) 50 mg PO BEDTIME [facility] Last Admin: 05/21/24 20:42 Dose: 50 mg Assessment/ Plan: Nephrology No dyspnea No chest pain Malaise and fatigue Good urine output No acute events overnight Vitals, medications, blood work and imaging reviewed in the chart NAD. MMM. NCAT. Normal Respiratory Effort/ Wet Wheeze. S1S2. +SM ND Abd. No C/C. Ankle edema trace. No rash. AAO. Normal speech. LEFT VENTRICULAR WALL MOTION: NORMAL DOPPLER/COLOR FLOW: GRADE II DIASTOLIC DYSFUNCTION COMMENTS: 1. NORMAL LEFT VENTRICULAR SYSTOLIC FUNCTION, EJECTION FRACTION 55-60%, NORMAL WALL MOTION 2. GRADE III DIASTOLIC DYSFUNCTION 3. MODERATE TO SEVERE TRICUSPID REGURGITATION 4. SEVERE PULMONARY HYPERTENSION (RIGHT VENTRICULAR SYSTOLIC PRESSURE GREATER THAN 60 mmHg) 5. ELEVATED FILLING PRESSURE (RIGHT ATRIUM 15-20 mmHg) 6. MODERATE AORTIC VALVE STENOSIS (AORTIC VALVE AREA 1.3 CENTIMETERS SQUARED, MEAN GRADIENT 20 mmHg) 7. MODERATE MITRAL REGURGITATION 8. SEVERE DILATED LEFT ATRIUM Stage I CHANDAN likely CRS CKD III -No NSAIDs -Continue diuresis Hypokalemia -Replete potassium as ordered HTN with CKD/ CHF -Continue spironolactone Diastolic CHF, A/C Severe TR/ Moderate MR Pulmonary HTN Moderate -Continue furosemide and spironolactone Hyperglycemia -RISS prn Anemia in chronic illness -Monitor H&H -PRBC as ordered Hospitalist note reviewed
[2024-05-22 21:44] LABS: Hematocrit 33.5 % (36.0-45.0)
[2024-05-23 07:09] LABS: Absolute Eosinophils 0.1 K/uL (0-0.5); Absolute Lymphocytes (CBC) 0.9 K/uL (0.7-4.9); Absolute Monocytes 0.8 K/uL (0.1-1.3); Absolute Neutrophil 3.9 K/uL (1.8-8.0); Basophils % 0.5 % (0-1.3); Eosinophils % 2.2 % (0-4.4); Hematocrit 33.1 % (36.0-45.0); Hemoglobin 11.2 g/dL (12.0-15.0); Lymphocytes % 15.5 % (15.3-44.8); MCH 27.8 pg (27.0-35.0); MCHC 33.8 g/dL (32.0-36.0); MCV 82.4 fL (80-100); Monocytes % 13.4 % (3.3-12.3); Neutrophils % 68.4 % (41.7-73.7); Nucleated Red Blood Cells % 0.1 % (0-0); Platelets 199 thou/uL (152-406); RBC Red Blood Cell Count 4.02 M/uL (3.86-4.86); Red Cell Distribution Width 16.7 % (12.1-15.2)
[2024-05-23 07:22] LABS: Anion Gap 8.1 mEq/L (5.0-15.0); Potassium 4.1 mEq/L (3.5-5.1)
--- NOTE | 2024-05-23 08:08 | P.PN ---
Date of Service: 05/23/24 Vital Signs Temp Pulse Resp BP Pulse Ox 97.4 F 59 18 140/68 99 05/23/24 04:00 05/23/24 04:00 05/23/24 06:05 05/23/24 04:00 05/23/24 06:05 Medications Acetaminophen (Acetaminophen 325 Mg Tablet) 650 mg PO Q4HP PRN PRN Reason: TEMP > 100' F Hydrocodone Bitart/Acetaminophen (Hydrocodone/Apap 5/325 Mg Tab) 1 tab PO Q4H PRN PRN Reason: Pain scale 5-7 (Moderate) Last Admin: 05/23/24 05:05 Dose: 1 tab Albuterol Sulfate (Albuterol 2.5 Mg/3 Ml Neb [place]) 2.5 mg NEB Q6HP PRN PRN Reason: SHORTNESS OF BREATH Aspirin (Aspirin Ec 81 Mg Tab) 81 mg PO DAILY [facility] Last Admin: 05/22/24 09:12 Dose: 81 mg Atorvastatin Calcium (Atorvastatin 80 Mg Tab) 80 mg PO BEDTIME [facility] Last Admin: 05/22/24 21:38 Dose: 80 mg Bisacodyl (Bisacodyl E.C. 5 Mg Tab) 10 mg PO DAILY PRN PRN Reason: CONSTIPATION Last Admin: 05/21/24 20:42 Dose: 10 mg Diphenhydramine HCl (Diphenhydramine 25 Mg Tab/Cap) 50 mg PO BID PRN PRN Reason: ITCHING Last Admin: 05/20/24 23:21 Dose: 50 mg Furosemide (Furosemide 40 Mg/4 Ml Vial) 40 mg IV TID [facility] Last Admin: 05/22/24 21:39 Dose: 40 mg Gabapentin (Gabapentin 300 Mg Cap) 300 mg PO BID [facility] Last Admin: 05/22/24 21:39 Dose: 300 mg Ipratropium [place] (Ipratropium Brom 0.5mg/2.5ml) 0.5 mg NEB [id number] PRN PRN Reason: SHORTNESS OF BREATH Levothyroxine Sodium (Levothyroxine Sod 0.1 Mg Tab) 0.1 mg PO ACB [facility] Last Admin: 05/22/24 07:53 Dose: 0.1 mg Ondansetron HCl (Ondansetron 4 Mg/2 Ml Vial) 4 mg IV Q6HP PRN PRN Reason: NAUSEA / VOMITING Last Admin: 05/17/24 15:02 Dose: 4 mg Ondansetron HCl (Ondansetron 4 Mg (Odt) Tab) 4 mg PO Q6HP PRN PRN Reason: nausea Pantoprazole Sodium (Pantoprazole 40mg Tablet) 40 mg PO BIDAC [facility]; Protocol Last Admin: 05/22/24 16:33 Dose: 40 mg Spironolactone (Spironolactone 25 Mg Tablet) 12.5 mg PO DAILY [facility] Last Admin: 05/22/24 09:11 Dose: 12.5 mg Trazodone HCl (Trazodone 50 Mg Tablet) 50 mg PO BEDTIME [facility] Last Admin: 05/22/24 21:38 Dose: 50 mg Assessment/ Plan: Nephrology No dyspnea No chest pain Feeling better this morning No acute events overnight Vitals, medications, blood work and imaging reviewed in the chart NAD. MMM. NCAT. Normal Respiratory Effort/ Wet Wheeze. S1S2. +SM ND Abd. No C/C. Ankle edema trace. No rash. AAO. Normal speech. LEFT VENTRICULAR WALL MOTION: NORMAL DOPPLER/COLOR FLOW: GRADE II DIASTOLIC DYSFUNCTION COMMENTS: 1. NORMAL LEFT VENTRICULAR SYSTOLIC FUNCTION, EJECTION FRACTION 55-60%, NORMAL WALL MOTION 2. GRADE III DIASTOLIC DYSFUNCTION 3. MODERATE TO SEVERE TRICUSPID REGURGITATION 4. SEVERE PULMONARY HYPERTENSION (RIGHT VENTRICULAR SYSTOLIC PRESSURE GREATER THAN 60 mmHg) 5. ELEVATED FILLING PRESSURE (RIGHT ATRIUM 15-20 mmHg) 6. MODERATE AORTIC VALVE STENOSIS (AORTIC VALVE AREA 1.3 CENTIMETERS SQUARED, MEAN GRADIENT 20 mmHg) 7. MODERATE MITRAL REGURGITATION 8. SEVERE DILATED LEFT ATRIUM Stage I CHANDAN likely CRS CKD III -No NSAIDs -Continue diuresis Hypokalemia -Replete potassium prn -Continue spironolactone HTN with CKD/ CHF -Continue spironolactone Diastolic CHF, A/C Severe TR/ Moderate MR Pulmonary HTN Moderate -Continue furosemide and spironolactone Hyperglycemia -RISS prn Anemia in chronic illness -Monitor H&H -PRBC prn Case reviewed with the hospitalist team
[2024-05-23 08:29] VITALS: O2SAT 97
--- NOTE | 2024-05-23 10:36 | P.PN ---
Subjective Date of Service: 05/23/24 Chief Complaint: GI bleed, melena, SOB Subjective: No new changes, No C/O voiced, Tolerating diet, Ambulating, Improving Review of Systems 10-point ROS is otherwise unremarkable Physical Examination - Vital Signs Temperature: 97.8 F Blood Pressure: 142/54 Pulse: 50 Respirations: 16 Pulse Ox (%): 97 - Physical Exam General: Alert, In no apparent distress HEENT: Atraumatic, PERRLA, EOMI Neck: Supple, JVD not distended Respiratory: Clear to auscultation bilaterally, Normal air movement Cardiovascular: Regular rate/rhythm, Normal S1 S2 Gastrointestinal: Normal bowel sounds, No tenderness Musculoskeletal: No tenderness Integumentary: No rashes Neurological: Normal speech, Normal tone, Normal affect Lymphatics: No axilla or inguinal lymphadenopathy - Studies Medications List Reviewed: Yes Assessment And Plan - Current Problems (Diagnosis) (1) Acute on chronic diastolic heart failure Current Visit: Yes Status: Acute Plan: switch lasix to 40 mg po BID Echo shows Grade 3 DD with elevated filling pressures. (2) Coronary artery disease involving autologous artery coronary bypass graft Current Visit: Yes Status: Acute Plan: stable, patient had a coronary angiogram recently that shows patent MILLAN-LAD and SVG-D grafts. (3) Atrial fibrillation Current Visit: No Status: Chronic Plan: currently in AF rate controlled, not on anticoagulation due to recent GI bleed, this patient will benefit from watchamn evaluation as outpatient but she still need anticoagulation clearance from GI around the time of procedure Continue ASA 81 g daily Qualifiers: Atrial fibrillation type: unspecified chronic Qualified Code(s): I48.20 - Chronic atrial fibrillation, unspecified; I48.2 - Chronic atrial fibrillation
--- NOTE | 2024-05-23 11:00 | P.PN ---
Subjective Date of Service: 05/23/24 Chief Complaint: GI bleed, melena, SOB Subjective: Improving (feeling better. awaiting PT) <Kely Aranda - Last Filed: 05/23/24 10:55> Date of Service: 05/23/24 <Mariana Mitchell - Last Filed: 05/23/24 13:39> Review of Systems 10-point ROS is otherwise unremarkable General: Weakness ENT: Other (left ear draining, no pain) <Kely Aranda - Last Filed: 05/23/24 10:55> Physical Examination - Vital Signs Temperature: 97.8 F Blood Pressure: 142/54 Pulse: 50 Respirations: 16 Pulse Ox (%): 97 - Physical Exam General: Alert, In no apparent distress, Oriented x3 HEENT: Atraumatic, Normocephalic Neck: Supple Respiratory: Normal air movement Cardiovascular: Edema, Irregular heart rate/rhythm Capillary refill: <2 Seconds Gastrointestinal: Normal bowel sounds Musculoskeletal: No clubbing Integumentary: No rashes, Other (less pale today) Neurological: Normal speech, Normal tone, Normal affect Lymphatics: No axilla or inguinal lymphadenopathy External genitalia: Deferred Rectal: Deferred - Studies Medications List Reviewed: Yes <Kely Aranda - Last Filed: 05/23/24 10:55> Assessment And Plan - Plan Assessment And Plan - Plan Acute on chronic CHF Will continue lasix, strict I/O and daily weight. Cardiology is following. Echo. 05/23/24 severe DD GI bleed: Continue protnix. hgb this am 11.[address] Peñaloza evaluated. Will need outpatient endoscopy. A. fib: Will continue Telemetry, BB and hold eliquis, continue aspirin. Pt will need watchmann device placement outpatient workup Htn: continue home med HLD; statin DM II: Continue accuchek, SSI and ADA diet. CHANDAN on CKD: Cr is 1.77. 05/23/24 ->1.66 Will continue IVF, avoid nephrotoxins and monitor renal function. Dr. Cisneros following Hx of CAD s/p CABG; Continue home meds Generalized weakness: Will continue fall precaution and PT. DVT ppx: SCD Code: full. <Kely Aranda - Last Filed: 05/23/24 10:55> - Plan Pt seen and examined. I agree with the note by the [employer]. Continue lasix, monitor renal function and continue home meds for other chronic medical problems. <Mariana Mitchell - Last Filed: 05/23/24 13:39>
[2024-05-23] MEDS: LACTULOSE 20 GM/30 ML UCUP PO SCH (12:00)
[2024-05-23] MEDS: FUROSEMIDE 40 MG TABLET PO SCH (16:36)
--- NOTE | 2024-05-23 16:50 | P.DS ---
Admission Date: 05/15/24 Discharge Date: 05/23/24 Disposition: ROUTINE DISCHARGE Discharge Condition: GOOD Reason for Admission: GI bleed, melena, SOB Brief History of Present Illness: 84 yo Female with past medical history of hypertension, hyperlipidemia, A-fib, CAD status post CABG 2021, hypothyroidism, CHF, history of anemia, diabetes, who was brought to the ER with generalized weakness and shortness of breath which has been progressively getting worse over the last 2 to 3 days. Patient denies any chest pain. But she is short of breath with even minimal activities. Patient states that walking to the fridge will take at least 3 stops and needing to rest even walking up to 4 to 5 feet. Patient denies any fever or chills. No nausea vomiting or diarrhea. Patient denies any falls. Patient was assessed in the ER and is admitted for further management of anemia. She is on blood thinners. Patient denies any hematemesis but has black stools no tarry stool though. Hospital Course: Pt is an 84 yo female with past medical history of hypertension, hyperlipidemia, A-fib, CAD status post CABG 2021, hypothyroidism, CHF, anemia, and diabetes who presented with generalized weakness and shortness of breath for 2 to 3 days. Patient was assessed in the ER and admitted for further management of anemia. She was taking Eliquis at home and noticed dark stools. She was noted to have severe anemia hemoglobin 6.2, she received a total of 2 units packed red blood cells. We held Eliquis and monitored H/H. Hgb remained stable at 11. Dr. Peñaloza recommended out pt follow up for endoscopy. Pt was advised to stop taking Eliquis until she follow sup with Dr. Peñaloza. We continued aspirin, beta-saul and telemetry for A. fib. Pt will benefit from watchmann device after obtaining anticoagulation clearance from GI. CHANDAN improved with gentle hydration. We continued home med for other chronic medical problems. Pt was in NAD prior to discharge. Vital Signs/Physical Exam: Temp Pulse Resp BP Pulse Ox 97.6 F 58 16 132/68 97 05/23/24 12:00 05/23/24 12:00 05/23/24 12:00 05/23/24 12:00 05/23/24 12:00 Laboratory Data at Discharge: WBC 5.70 thou/uL (4.3-10.9) 05/23/24 06:16 Hgb 11.2 g/dL (12.0-15.0) L 05/23/24 06:16 Hct 33.1 % (36.0-45.0) L 05/23/24 06:16 Plt Count 199 thou/uL (152-406) 05/23/24 06:16 PT 21.4 SECONDS (9.4-12.5) H 05/15/24 17:14 INR 1.95 05/15/24 17:14 APTT 30.4 SECONDS (24.3-36.9) 05/15/24 17:14 Sodium 134 mEq/L (136-145) L 05/23/24 06:16 Potassium 4.1 mEq/L (3.5-5.1) 05/23/24 06:16 BUN 34 mg/dL (7-18) H 05/23/24 06:16 Creatinine 1.66 mg/dL (0.55-1.02) H 05/23/24 06:16 Glucose 125 mg/dL (74-106) H 05/23/24 06:16 Phosphorus 3.3 mg/dL (2.5-4.9) 05/21/24 07:08 Magnesium 2.2 mg/dL (1.6-2.4) 05/21/24 07:08 Magnesium 2.3 mg/dL (1.6-2.4) 05/21/24 07:08 Total Bilirubin 1.0 mg/dL (0.2-1.0) 05/21/24 07:08 AST 46 U/L (15-37) H 05/21/24 07:08 ALT 28 U/L (13-56) 05/21/24 07:08 Alkaline Phosphatase 121 U/L (45-117) H 05/21/24 07:08 Lipase 15 U/L (13-75) 05/15/24 17:14 Home Medications: Apixaban [Eliquis *] 2.5 mg PO BID 11/07/22 Aspirin [Kamila Chewable Aspirin] 81 mg PO DAILY 11/07/22 Atorvastatin Calcium [Lipitor] 80 mg PO BEDTIME 11/07/22 Diphenhydramine HCl [Benadryl] 50 mg PO BID PRN 11/07/22 Gabapentin 300 mg PO TID 11/07/22 Levothyroxine [Synthroid*] 100 mcg PO DAILY 12/13/22 Potassium Gluconate [Potassium] 99 mg PO DAILY 12/13/22 Ondansetron HCl 4 mg PO Q6HP PRN 09/05/23 Trazodone [Desyrel*] 50 mg PO BEDTIME 09/10/23 Losartan Potassium 25 mg PO DAILY #30 tab 09/11/23 Hydralazine HCl 10 mg PO BID 05/15/24 Carboxymethylcellulose Sodium [Refresh Tears] 1 drop OPTH TID 05/20/24 Furosemide [Lasix*] 40 mg PO BIDL 30 Days #60 tab 05/23/24 New Medications: Furosemide [Lasix*] 40 mg PO BIDL 30 Days #60 tab Physician Discharge Instructions: 84 yo Female with past medical history of hypertension, hyperlipidemia, A-fib, CAD status post CABG 2021, hypothyroidism, CHF, history of anemia, diabetes, who was brought to the ER with generalized weakness and shortness of breath which has been progressively getting worse over the last 2 to 3 days. She was noted to have severe anemia hemoglobin 6.2, she received a total of 2 units packed red blood cells, repeat H&H is stable 9.2 she was evaluated by Dr. Montague for EGD and colonoscopy, small bowel series, plan to advance diet, patient is tolerating diet, stable to discharge home, follow-up with PCP in 7 to 10 days. Assessment Severe anemia, 6.2, received 2 units of packed red blood cells, repeat hemoglobin 9.2, GI bleed Status post GI consult, EGD colonoscopy, small bowel series Aortic valve stenosis, follow-up with cardiology after discharge A-fib, anticoagulation, on 05/15 Echocardiogram ORMAL LEFT VENTRICULAR SYSTOLIC FUNCTION, EJECTION FRACTION 55-60%, NORMAL WALL MOTION 2. GRADE III DIASTOLIC DYSFUNCTION 3. MODERATE TO SEVERE TRICUSPID REGURGITATION 4. SEVERE PULMONARY HYPERTENSION (RIGHT VENTRICULAR SYSTOLIC PRESSURE GREATER THAN 60 mmHg) 5. ELEVATED FILLING PRESSURE (RIGHT ATRIUM 15-20 mmHg) 6. MODERATE AORTIC VALVE STENOSIS (AORTIC VALVE AREA 1.3 CENTIMETERS SQUARED, MEAN GRADIENT 20 mmHg) 7. MODERATE MITRAL REGURGITATION 8. SEVERE DILATED LEFT ATRIUM Hold Eliquis until you see Dr. Peñaloza. New medications PPI twice daily Follow-up with GI with any additional rectal bleeding Small bowel series unremarkable, Continue home medicines as previously prescribed GOAL: Clear understanding of disease process INSTRUCTIONS: Physician Discharge Instructions: -Follow-up with PCP in 1 to 2 weeks -Please call Dr. Gallego at [phone] if any questions regarding hospital stay -Please call nursing station at [phone] if any nursing or medication questions -Return to the emergency room if symptoms worsen Diet: ADA, low sodium Activity: Fall precautions Diet: high fiber Activity: Fall precautions Followup: Darryl Currie DO [Primary Care Provider] - Cody Peñaloza MD [ASSOCIATE-ACTIVE - CAN ADMIT] -
[2024-05-23 16:52] VITALS: BP 126/44; TEMP 98.1
== END 2024-05-23 20:01 | disposition home or self-care (01) | DRG 377 ==
LOC: ER 16:49 → ERHOLD 18:28 → 2ND 19:43
PROVIDERS: ADMIT Family Medicine; ATTEND Hospitalist
PROC: 30233N1 Transfusion of Nonautologous Red Blood Cells into Peripheral Vein, Percutaneous Approach (ICD-10-PCS; 2024-05-15)
PROC: 0DB78ZX Excision of Stomach, Pylorus, Via Natural or Artificial Opening Endoscopic, Diagnostic (ICD-10-PCS; 2024-05-16)
PROC: 0DB68ZX Excision of Stomach, Via Natural or Artificial Opening Endoscopic, Diagnostic (ICD-10-PCS; principal; 2024-05-16 17:30)
PROC: 0DJD8ZZ Inspection of Lower Intestinal Tract, Via Natural or Artificial Opening Endoscopic (ICD-10-PCS; 2024-05-17)
PROC: 0T9B70Z Drainage of Bladder with Drainage Device, Via Natural or Artificial Opening (ICD-10-PCS; 2024-05-19)
DX: K29.01 Acute gastritis with bleeding (principal); I50.43 Acute on chronic combined systolic (congestive) and diastolic (congestive) heart failure; D62 Acute posthemorrhagic anemia; I48.19 Other persistent atrial fibrillation; N17.9 Acute kidney failure, unspecified; I13.0 Hypertensive heart and chronic kidney disease with heart failure and stage 1 through stage 4 chronic kidney disease, or unspecified chronic kidney disease; N18.30 Chronic kidney disease, stage 3 unspecified; E11.22 Type 2 diabetes mellitus with diabetic chronic kidney disease; E11.65 Type 2 diabetes mellitus with hyperglycemia; D63.1 Anemia in chronic kidney disease; K29.80 Duodenitis without bleeding; K64.8 Other hemorrhoids; K64.4 Residual hemorrhoidal skin tags; I08.3 Combined rheumatic disorders of mitral, aortic and tricuspid valves; K59.00 Constipation, unspecified; I95.9 Hypotension, unspecified; E03.9 Hypothyroidism, unspecified; E87.6 Hypokalemia; I27.22 Pulmonary hypertension due to left heart disease; K44.9 Diaphragmatic hernia without obstruction or gangrene; I25.10 Atherosclerotic heart disease of native coronary artery without angina pectoris; Z95.1 Presence of aortocoronary bypass graft; Z88.1 Allergy status to other antibiotic agents; Z95.5 Presence of coronary angioplasty implant and graft; Z60.2 Problems related to living alone; Z79.82 Long term (current) use of aspirin; Z79.01 Long term (current) use of anticoagulants; Z90.49 Acquired absence of other specified parts of digestive tract; Z79.890 Hormone replacement therapy; Z79.899 Other long term (current) drug therapy
CPT/HCPCS: 36415; 36430; 71045; 74250; 80048; 80053; 80069; 80076; 81001; 82550; 82570; 82947; 83690; 83735; 83880; 83935; 84300; 84484; 85014; 85018; 85025; 85610; 85730; 86850; 86900; 86901; 86920; 88305; 88312; 93005; 93306; 93978; 94760; 97116; 97161; 97164; 97530; 99285; A4216; J0171; J1170; J1200; J1650; J1940; J2270; J2354; J2371; J2405; J2470; J2704; J2765; J7030; J7040; J7050; P9016

== ENCOUNTER 2024-09-05 16:26 | Inpatient (IN) | payer OTHER ==
[2024-09-05 18:28] LABS: Absolute Eosinophils 0.1 K/uL (0-0.5); Absolute Lymphocytes (CBC) 1.7 K/uL (0.7-4.9); Absolute Monocytes 0.4 K/uL (0.1-1.3); Absolute Neutrophil 4.4 K/uL (1.8-8.0); Basophils % 0.6 % (0-1.3); Eosinophils % 1.7 % (0-4.4); Hemoglobin 13.2 g/dL (12.0-15.0); Lymphocytes % 25.2 % (15.3-44.8); MCH 28.8 pg (27.0-35.0); MCV 87.3 fL (80-100); MPV 8.1 fL (7.6-11.3); Monocytes % 6.5 % (3.3-12.3); Platelets 174 thou/uL (152-406); RBC Red Blood Cell Count 4.58 M/uL (3.86-4.86); Red Cell Distribution Width 17.8 % (12.1-15.2)
[2024-09-05] MEDS ORDERED: CALCIUM GLUCONATE 1 GM IVPB 1 GM/50 ML BAG IV ONE (18:30)
--- NOTE | 2024-09-05 18:47 | EDPHYS ---
Physician Documentation [facility] Name: Claudia Myers Age: 84 yrs Sex: Female : 1940 Arrival Date: 09/05/2024 Time: 16:26 Bed 24 Private MD: ED Physician Nilda Cruz HPI: 09/05 18:13 This 84 yrs old Female presents to ER via Ambulatory with complaints of Sent by Dr jones Prezas:low heart rate. 18:13 84-year-old female with history of atrial fibrillation, CAD, diabetes, hypertension sp3 presents with bradycardia referred from PCPs office. PCP was in the process of lowering metoprolol dose from 2 tabs p.o. to 1 tab p.o. (assuming 25 mg per tab). Patient did that for 1 week and then accidentally started taking 2 tabs again. Patient is having no symptoms from her bradycardia including no headache, chest pain, syncope, near-syncope, shortness of breath, abdominal pain, nausea, vomit, diarrhea, back pain, dizziness, or any other signs or symptoms on ROS at this time. Patient normal vital signs other than the heart rate and had no symptoms at the PCP office either. He referred her here for evaluation and possible observation. ROS otherwise negative.. Historical: - Allergies: 17:41 Bactrim DS; cm10 - PMHx: 17:41 Atrial Fib; coronary atherosclerosis; diabetes mellitus; Hypertension; cm10 - PSHx: 17:41 Appendectomy; Cholecystectomy; Coronary artery bypass graft; cm10 - Immunization history:: Adult Immunizations up to date. - Infectious Disease History:: Denies. - Social history:: Smoking status: Patient denies any tobacco usage or history of. ROS: 18:16 Constitutional: Negative for fever, chills, and weight loss, Eyes: Negative for injury, sp3 pain, redness, and discharge, Neck: Negative for injury, pain, and swelling, Respiratory: Negative for shortness of breath, cough, wheezing, and pleuritic chest pain, Abdomen/GI: Negative for abdominal pain, nausea, vomiting, diarrhea, and constipation, Back: Negative for injury and pain, MS/Extremity: Negative for injury and deformity, Skin: Negative for injury, rash, and discoloration, Neuro: Negative for headache, weakness, numbness, tingling, and seizure, Psych: Negative for depression, anxiety, suicide ideation, homicidal ideation, and hallucinations, Allergy/Immunology: Negative for hives, rash, and allergies, Endocrine: Negative for neck swelling, polydipsia, polyuria, polyphagia, and marked weight changes, 18:16 All other systems are negative, Exam: 18:16 Constitutional: This is a well developed, well nourished patient who is awake, alert, sp3 and in no acute distress. Head/Face: Normocephalic, atraumatic. Eyes: Pupils equal round and reactive to light, extra-ocular motions intact. Lids and lashes normal. Conjunctiva and sclera are non-icteric and not injected. Cornea within normal limits. Periorbital areas with no swelling, redness, or edema. Neck: Trachea midline, no thyromegaly or masses palpated, and no cervical lymphadenopathy. Supple, full range of motion without nuchal rigidity, or vertebral point tenderness. No Meningismus. Chest/axilla: Normal chest wall appearance and motion. Nontender with no deformity. No lesions are appreciated. Respiratory: Lungs have equal breath sounds bilaterally, clear to auscultation and percussion. No rales, rhonchi or wheezes noted. No increased work of breathing, no retractions or nasal flaring. Abdomen/GI: Soft, non-tender, with normal bowel sounds. No distension or tympany. No guarding or rebound. No evidence of tenderness throughout. Back: No spinal tenderness. No costovertebral tenderness. Full range of motion. Skin: Warm, dry with normal turgor. Normal color with no rashes, no lesions, and no evidence of cellulitis. MS/ Extremity: Pulses equal, no cyanosis. Neurovascular intact. Full, normal range of motion. Neuro: Awake and alert, GCS 15, oriented to person, place, time, and situation. Cranial nerves II-XII grossly intact. Motor strength 5/5 in all extremities. Sensory grossly intact. Cerebellar exam normal. Normal gait. Psych: Awake, alert, with orientation to person, place and time. Behavior, mood, and affect are within normal limits. 18:16 Cardiovascular: Rate: bradycardic, 18:16 ECG was reviewed by the Attending Physician. EKG demonstrates atrial fibrillation with bradycardic ventricular response with capture rate at [address]/T wave changes noted. Vital Signs: 17:39 BP 180 / 52; Pulse 39; Resp 15; Temp 96.9(TE); Pulse Ox 100% on R/A; Weight 69.4 kg; cm10 Height 5 ft. 5 in. ; Pain 0/10; 18:36 BP 169 / 75; Pulse 42; Resp 16; Pulse Ox 100% ; Pain 0/10; iw 19:45 BP 169 / 58; Pulse 41; Resp 17 S; Pulse Ox 95% on R/A; ha1 20:42 BP 165 / 51; Pulse 34; Resp 17 S; Pulse Ox 95% on R/A; ha1 17:39 Body Mass Index 25.46 (69.40 kg, 165.1 cm) cm10 17:39 Pain Scale: Adult cm10 18:36 Pain Scale: Adult iw MDM: 16:45 Medical Screening Exam initiated sp3 09/05 16:45 Order name: Basic Metabolic Panel; Complete Time: 19:18 sp3 09/05 16:45 Order name: CBC with Diff; Complete Time: 18:36 sp3 09/05 16:45 Order name: LFT's; Complete Time: 19:18 sp3 09/05 16:45 Order name: Magnesium; Complete Time: 19:18 sp3 09/05 16:45 Order name: NT PRO-BNP; Complete Time: 19:18 sp3 09/05 16:45 Order name: Troponin HS; Complete Time: 19:18 sp3 09/05 20:19 Order name: T4 Free EDMS 09/05 20:19 Order name: Thyroid Stimulating Hormone EDMS 09/05 20:19 Order name: Urinalysis w/ reflexes EDMS 09/05 20:19 Order name: Basic Metabolic Panel EDMS 09/05 20:19 Order name: Basic Metabolic Panel EDMS 09/05 20:19 Order name: CBC with Automated Diff EDMS 09/05 20:19 Order name: CBC with Automated Diff EDMS 09/05 20:19 Order name: Magnesium EDMS 09/05 20:19 Order name: Magnesium EDMS 09/06 07:48 Order name: Glucose, Ancillary Testing EDMS 09/06 10:32 Order name: CBC Smear Scan EDMS 09/06 11:52 Order name: Glucose, Ancillary Testing EDMS 09/05 19:19 Order name: CXR XRAY; Complete Time: 20:14 sp3 09/05 16:45 Order name: EKG; Complete Time: 16:45 sp3 09/05 20:19 Order name: CONS Physician Consult EDPA 09/05 16:45 Order name: Cardiac monitoring; Complete Time: 18:23 sp3 09/05 16:45 Order name: EKG - Nurse/Tech; Complete Time: 18:24 sp3 09/05 16:45 Order name: IV Saline Lock; Complete Time: 18:24 sp3 09/05 16:45 Order name: Labs collected and sent; Complete Time: 18:24 sp3 Administered Medications: 18:36 Drug: Calcium Gluconate IVPB 1 grams IVPB once over 60 mins; (mix in NS 100 mL) Route: iw IVPB; Infused Over: 60 mins; Site: right forearm; 19:25 Follow up: Response: No adverse reaction; IV Status: Completed infusion; IV Intake: ha1 100ml Disposition Summary: 09/05/24 18:46 Hospitalization Ordered Notes: Hospitalization Status: Observation sp3 Provider: Nathaly Ferrera sp3 Condition: Stable sp3 Problem: an acute exacerbation sp3 Symptoms: have worsened sp3 Bed/Room Type: Standard sp3 Location: Telemetry/MedSurg (observation)(09/06/24 14:14) bd Room Assignment: [facility](09/06/24 14:14) bd Diagnosis - Atrial fibrillation with bradycardia, accidental metoprolol overdose sp3 Forms: - Medication Reconciliation Form sp3 - SBAR form sp3 - Leadership Thank You Letter sp3 Signatures: Dispatcher [employer] EDPA Ina Mcbride Evonne Reyna RN RN iw Able, Lacie, RN RN lg3 Nilda Cruz MD MD sp3 Ivelisse Roach RN RN cm10 Marisa Poe [facility] Kisha Hill RN ha1 Corrections: (The following items were deleted from the chart) 20:49 18:46 Telemetry/MedSurg (observation) sp3 kmf 20:49 18:46 sp3 kmf 20:53 20:49 HLD1 kmf lg3 09/06 14:14 09/05 20:49 [facility] ER HOLD kmf bd 09/06 14:14 09/05 20:53 ERHOLD- lg3 bd
--- NOTE | 2024-09-05 18:47 | ER ---
Nurse's Notes [facility] Name: Claudia Myers Age: 84 yrs Sex: Female : 1940 Arrival Date: 09/05/2024 Time: 16:26 Bed 24 Private MD: Diagnosis: Atrial fibrillation with bradycardia, accidental metoprolol overdose Presentation: 09/05 17:39 Chief complaint: Patient states: SENT TO ED BY PCP FOR LOW HEART RATE. PT REPORTS cm10 HAVING CHEST PAIN UPON ARRIVAL THAT HAS RESOLVED. PT DENIES ANY OTHER SYMPTOMS. Coronavirus screen: Client denies travel out of the [place] in the last 14 days. Ebola Screen: Patient denies travel to an Ebola-affected area in the 21 days before illness onset. No symptoms or risks identified at this time. Initial Sepsis Screen: Does the patient meet any 2 criteria? No. Patient's initial sepsis screen is negative. Does the patient have a suspected source of infection? No. Patient's initial sepsis screen is negative. Risk Assessment: Do you want to hurt yourself or someone else? Patient reports no desire to harm self or others. Onset of symptoms was September 05, 2024. 17:39 Method Of Arrival: Ambulatory cm10 17:39 Acuity: KEVIN 2 cm10 Triage Assessment: 17:42 General: Appears in no apparent distress. comfortable, Behavior is calm, cooperative. cm10 Neuro: No deficits noted. Level of Consciousness is awake, alert, obeys commands, Oriented to person, place, time, situation. Respiratory: No deficits noted. Airway is patent Respiratory effort is even, unlabored, Respiratory pattern is regular, symmetrical. Historical: - Allergies: 17:41 Bactrim DS; cm10 - PMHx: 17:41 Atrial Fib; coronary atherosclerosis; diabetes mellitus; Hypertension; cm10 - PSHx: 17:41 Appendectomy; Cholecystectomy; Coronary artery bypass graft; cm10 - Immunization history:: Adult Immunizations up to date. - Infectious Disease History:: Denies. - Social history:: Smoking status: Patient denies any tobacco usage or history of. Screenin:25 [facility] ED Fall Risk Assessment (Adult) History of falling in the last 3 months, iw including since admission No falls in past 3 months (0 pts) Confusion or Disorientation No (0 pts) Intoxicated or Sedated No (0 pts) Impaired Gait No (0 pts) Mobility Assist Device Used No (0 pt) Altered Elimination No (0 pt) Score/Fall Risk Level 0 - 2 = Low Risk Oriented to surroundings, Maintained a safe environment. Abuse screen: Denies threats or abuse. Nutritional screening: No deficits noted. Tuberculosis screening: No symptoms or risk factors identified. Assessment: 18:24 General: Appears in no apparent distress. Behavior is calm, cooperative. Pain: Denies iw pain. Neuro: Level of Consciousness is awake, alert, obeys commands, Oriented to person, place, time, situation, Moves all extremities. Full function. Neuro: Denies weakness dizziness. Cardiovascular: Patient's skin is warm and dry. Respiratory: Respiratory effort is even, unlabored, Respiratory pattern is regular, symmetrical. GI: Abdomen is flat, non-distended. Derm: Skin is intact. Musculoskeletal: Range of motion: intact in all extremities. 19:40 General: Appears comfortable, Behavior is calm, cooperative. Pain: Denies pain. Neuro: ha1 Level of Consciousness is awake, alert, obeys commands, Oriented to person, place, time, situation. Cardiovascular: Patient's skin is warm and dry. Rhythm is irregular. Respiratory: Airway is patent Respiratory effort is even, unlabored, Respiratory pattern is regular, symmetrical. GI: No signs and/or symptoms were reported involving the gastrointestinal system. Abdomen is flat, non-distended. Derm: Skin is fragile. Musculoskeletal: Range of motion: intact in all extremities. 20:25 Reassessment: Patient and/or family updated on plan of care and expected duration. Pain ha1 level reassessed. Patient is alert, oriented x 3, equal unlabored respirations, skin warm/dry/pink. Vital Signs: 17:39 BP 180 / 52; Pulse 39; Resp 15; Temp 96.9(TE); Pulse Ox 100% on R/A; Weight 69.4 kg; cm10 Height 5 ft. 5 in. ; Pain 0/10; 18:36 BP 169 / 75; Pulse 42; Resp 16; Pulse Ox 100% ; Pain 0/10; iw 19:45 BP 169 / 58; Pulse 41; Resp 17 S; Pulse Ox 95% on R/A; ha1 20:42 BP 165 / 51; Pulse 34; Resp 17 S; Pulse Ox 95% on R/A; ha1 17:39 Body Mass Index 25.46 (69.40 kg, 165.1 cm) cm10 17:39 Pain Scale: Adult cm10 18:36 Pain Scale: Adult iw ED Course: 16:32 Patient arrived in ED. sj2 16:40 Nilda Cruz MD is Attending Physician. sp3 17:41 Triage completed. cm10 17:41 Arm band placed on right wrist. Patient placed in an exam room, on a stretcher. EKG cm10 completed in triage. Results shown to MD. 17:41 EKG done, by ED staff, reviewed by Nilda Cruz MD. cm10 18:23 Evonne Reyna, RN is Primary Nurse. iw 18:25 Initial lab(s) drawn, by me, sent to lab. Inserted saline lock: 22 gauge in right iw forearm, using aseptic technique. Blood collected. Flushed with 10 mL NS. 18:46 Nathaly Ferrera MD is Hospitalizing Provider. sp3 19:00 Patient has correct armband on for positive identification. Placed in gown. Bed in low ha1 position. Call light in reach. Side rails up X2. 19:00 Provided Education on: plan of care . ha1 19:00 Client placed on continuous cardiac and pulse oximetry monitoring. NIBP monitoring ha1 applied. library monitor on. 19:00 Warm blanket given. Pillow given. ha1 19:53 CXR XRAY In Process Unspecified. EDMS 20:54 No provider procedures requiring assistance completed. Patient admitted, IV remains in cp4 place. Administered Medications: 18:36 Drug: Calcium Gluconate IVPB 1 grams IVPB once over 60 mins; (mix in NS 100 mL) Route: iw IVPB; Infused Over: 60 mins; Site: right forearm; 19:25 Follow up: Response: No adverse reaction; IV Status: Completed infusion; IV Intake: ha1 100ml Medication: 18:24 VIS not applicable for this client. iw Intake: 19:25 IV: 100ml; Total: 100ml. ha1 Outcome: 18:46 Decision to Hospitalize by Provider. sp3 20:54 Admitted to ER Hold. Please see [facility] for further documentation. cp4 20:54 Condition: stable 20:54 Instructed on the need for admit, 09/06 15:38 Patient left the ED. db Signatures: Dispatcher [employer] EDMS Evonne Reyna RN RN Nilda Yadav MD MD sp3 Kisha Hill RN RN ha1 Laurence Wallace RN RN db Ivelisse Roach RN RN cm10 Shy Whipple 4 Peggy Eaton 2
[2024-09-05 19:14] LABS: Albumin 3.1 g/dL (3.4-5.0); Albumin/Globulin Ratio 0.7 (1.1-1.8); Anion Gap 7.5 mEq/L (5.0-15.0); Bilirubin Direct 0.4 mg/dL (0-0.2); Bilirubin Indirect, Calculated 0.8 mg/dL (0.2-0.8); Bilirubin Total 1.2 mg/dL (0.2-1.0); Globulin 4.3 g/dL (2.3-3.5); Magnesium 1.9 mg/dL (1.6-2.4); Potassium 3.5 mEq/L (3.5-5.1); Protein, Total 7.4 g/dL (6.4-8.2); Troponin High Sensitivity 44.3 pg/mL (<58.9)
--- NOTE | 2024-09-05 19:59 | RAD REPORT ---
EXAMINATION: ONE VIEW CHEST XR CLINICAL INDICATION: PALPITATIONS TECHNIQUE: Frontal chest projection is submitted. Examination is limited by patient positioning and t echnique. COMPARISON: 05/21/2024 FINDINGS: Lungs are mildly emphysematous. The heart is moderately enlarged. No displaced fractures identified. Sternotomy wires. IMPRESSION: No acute intrathoracic abnormalities.
--- NOTE | 2024-09-05 20:09 | P.HP ---
Certification for Inpatient With expected LOS: >2 Midnights Practitioner: I am a practitioner with admitting privileges, knowledge of patient current condition, hospital course, and medical plan of care. Services: Services provided to patient in accordance with Admission requirements found in Title 42 Section 412.3 of the Code of Federal Regulations Patient History Date of Service: 09/05/24 Reason for admission: Slow heart rate History of Present Illness: 84-year-old female history of atrial fibrillation, coronaries, diabetes, hypertension presents from primary care office with complaints of low heart rate. Patient does have history of atrial fibrillation. She reports that recently she had her dose of metoprolol reduced. She reports that she mistakenly increased her dose of metoprolol. When she went to her primary care she was noted to have significant bradycardia and atrial fibrillation. She was recommended to come to the ER. On arrival she denied any dizziness, shortness of breath, chest pain or felt any symptoms. Allergies sulfamethoxazole [From Bactrim] Allergy (Verified 05/15/24 20:26) Hives trimethoprim [From Bactrim] Allergy (Verified 05/15/24 20:26) Hives Home Medications: Apixaban [Eliquis *] 2.5 mg PO BID 11/07/22 Aspirin [Kamila Chewable Aspirin] 81 mg PO DAILY 11/07/22 Atorvastatin Calcium [Lipitor] 80 mg PO BEDTIME 11/07/22 Diphenhydramine HCl [Benadryl] 50 mg PO BID PRN 11/07/22 Gabapentin 300 mg PO TID 11/07/22 Levothyroxine [Synthroid*] 100 mcg PO DAILY 12/13/22 Potassium Gluconate [Potassium] 99 mg PO DAILY 12/13/22 Ondansetron HCl 4 mg PO Q6HP PRN 09/05/23 Trazodone [Desyrel*] 50 mg PO BEDTIME 09/10/23 Losartan Potassium 25 mg PO DAILY #30 tab 09/11/23 Hydralazine HCl 10 mg PO BID 05/15/24 Carboxymethylcellulose Sodium [Refresh Tears] 1 drop OPTH TID 05/20/24 Furosemide [Lasix*] 40 mg PO BIDL 30 Days #60 tab 05/23/24 Pantoprazole [Protonix Tab] 40 mg PO BIDAC 30 Days #60 tab 05/23/24 - Past Medical/Surgical History Diabetic: Yes -: HTN -: A.FIB -: CHF -: NIDDM -: CAD with CABG 2021 -: Hyperlipidemia -: Hypothyroid -: Cholecystectomy -: appendectomy -: CABG-04/2023 Psychosocial/ Personal History: Lives at home alone. Son lives nearby. - Family History Father -: Heart disease Mother -: Heart disease - Social History Alcohol use: No CD- Drugs: No Caffeine use: Yes Review of Systems 10-point ROS is otherwise unremarkable Physical Examination - Physical Exam General: Alert, In no apparent distress, Oriented x3 HEENT: Atraumatic, Normocephalic Neck: Supple Respiratory: Clear to auscultation bilaterally, Normal air movement Cardiovascular: Other (irregular bradycardia ) Gastrointestinal: Normal bowel sounds - Studies Laboratory Data (last 24 hrs) 09/05/24 09/05/24 18:20 18:20 WBC 6.60 Hgb 13.2 Hct 40.0 Plt Count 174 Sodium 140 Potassium 3.5 BUN 22 H Creatinine 1.79 H Glucose 130 H Magnesium 1.9 Total Bilirubin 1.2 H AST 50 H ALT 22 Alkaline Phosphatase 129 H Assessment and Plan - Problems (Diagnosis) (1) Bradycardia Current Visit: Yes Status: Acute (2) Atrial fibrillation Current Visit: Yes Status: Acute - Plan 84-year-old female with history of atrial fibrillation presents from primary care office to the ER with complaints of bradycardia. Atrial fibrillation Bradycardia Coronary artery disease Hypertension -- Admit to telemetry -- Cardiology consultation -- Beta-saul hold -- Consider as needed atropine, doubt beta-saul toxicity but glucagon could be considered -- Differentials include medication, metabolic, hormonal, sick sinus syndrome CKD -- Renally dose medications Hypothyroidism --Check TSH, restart home medications Diabetes -- Fingerstick blood sugars, sliding scale insulin - Advance Directives Does patient have a Living Will: No Does patient have a Durable POA for Healthcare: No - Code Status/Comfort Care Code Status Assessed: Yes
[2024-09-05 20:43] LABS: Thyroid Stimulating Hormone 1.38 uIU/mL (0.358-3.740)
[2024-09-05 21:10] VITALS: BMI 25.4
[2024-09-06] MEDS: MELATONIN 5 MG TABLET PO ONE (02:35)
[2024-09-06] MEDS ORDERED: MELATONIN 5 MG TABLET PO ONE (02:51)
[2024-09-06] MEDS: FLU (Fluarix Triv) TS24-25(6MOS UP)/PF 45 MCG/0.5 ML Syringe IM ONE (07:30)
[2024-09-06 08:55] LABS: Absolute Eosinophils 0.1 K/uL (0-0.5); Absolute Lymphocytes (CBC) 1.1 K/uL (0.7-4.9); Absolute Monocytes 0.7 K/uL (0.1-1.3); Absolute Neutrophil 6.3 K/uL (1.8-8.0); Basophils % 0.3 % (0-1.3); Eosinophils % 0.6 % (0-4.4); Hematocrit 33.4 % (36.0-45.0); Hemoglobin 11.1 g/dL (12.0-15.0); Lymphocytes % 13.9 % (15.3-44.8); MCHC 33.2 g/dL (32.0-36.0); MCV 87.2 fL (80-100); Monocytes % 8.3 % (3.3-12.3); Neutrophils % 76.9 % (41.7-73.7); Platelets 157 thou/uL (152-406); RBC Red Blood Cell Count 3.83 M/uL (3.86-4.86); Red Cell Distribution Width 18.1 % (12.1-15.2)
[2024-09-06 09:03] LABS: Anion Gap 5.3 mEq/L (5.0-15.0); Magnesium 1.9 mg/dL (1.6-2.4); Potassium 3.3 mEq/L (3.5-5.1)
[2024-09-06 10:31] LABS: Platelet Estimate ADEQ; White Blood Cell Scan OK (OK)
[2024-09-06 10:32] LABS: Blood Morphology Comment NOTED (NOT SEEN)
--- NOTE | 2024-09-06 17:48 | P.CNS ---
Date of Consult: 09/06/24 Chief Complaint: Slow heart rate History of Present Illness: Patient with PMH of atrial fibrillation, presented with slow HR, denies having any symptoms, no chest pain, no palpitations, no syncope. Allergies sulfamethoxazole [From Bactrim] Allergy (Verified 05/15/24 20:26) Hives trimethoprim [From Bactrim] Allergy (Verified 05/15/24 20:26) Hives Home medications list reviewed: Yes Home Medications: Apixaban [Eliquis *] 2.5 mg PO BID 11/07/22 Aspirin [Kamila Chewable Aspirin] 81 mg PO DAILY 11/07/22 Atorvastatin Calcium [Lipitor] 80 mg PO BEDTIME 11/07/22 Diphenhydramine HCl [Benadryl] 50 mg PO BID PRN 11/07/22 Gabapentin 300 mg PO TID 11/07/22 Levothyroxine [Synthroid*] 100 mcg PO DAILY 12/13/22 Potassium Gluconate [Potassium] 99 mg PO DAILY 12/13/22 Ondansetron HCl 4 mg PO Q6HP PRN 09/05/23 Losartan Potassium 25 mg PO DAILY #30 tab 09/11/23 Carboxymethylcellulose Sodium [Refresh Tears] 1 drop OPTH TID 05/20/24 Furosemide [Lasix*] 40 mg PO BIDL 30 Days #60 tab 05/23/24 Pantoprazole [Protonix Tab] 40 mg PO BIDAC 30 Days #60 tab 05/23/24 - Past Medical/Surgical History Diabetic: Yes -: HTN -: A.FIB -: CHF -: NIDDM -: CAD with CABG 2021 -: Hyperlipidemia -: Hypothyroid -: Cholecystectomy -: appendectomy -: CABG-04/2023 Psychosocial/ Personal History: Lives at home alone. Son lives nearby. - Family History Father Medical History: Heart disease Mother Medical History: Heart disease - Social History Smoking Status: Unknown if ever smoked Alcohol use: No CD- Drugs: No Caffeine use: Yes Review of Systems 10-point ROS is otherwise unremarkable Physical Examination Temp Pulse Resp BP Pulse Ox 98.1 F 55 18 151/67 H 95 09/06/24 16:00 09/06/24 16:00 09/06/24 16:00 09/06/24 16:00 09/06/24 16:00 General: Alert, In no apparent distress HEENT: Atraumatic, PERRLA, Mucous membr. moist/pink, EOMI, Sclerae nonicteric Neck: Supple, 2+ carotid pulse no bruit, No LAD, Without JVD or thyroid abnormality Respiratory: Clear to auscultation bilaterally, Normal air movement Cardiovascular: Irregular heart rate/rhythm Gastrointestinal: Normal bowel sounds, No tenderness Musculoskeletal: No tenderness Integumentary: No rashes Neurological: Normal gait, Normal speech, Normal tone, Normal affect Lymphatics: No axilla or inguinal lymphadenopathy Laboratory Data (last 24 hrs) 09/05/24 09/05/24 18:20 18:20 WBC 6.60 Hgb 13.2 Hct 40.0 Plt Count 174 Sodium 140 Potassium 3.5 BUN 22 H Creatinine 1.79 H Glucose 130 H Magnesium 1.9 Total Bilirubin 1.2 H AST 50 H ALT 22 Alkaline Phosphatase 129 H - Problems (1) Atrial fibrillation Current Visit: Yes Status: Acute Plan: Patient mention that she was taking more BB than usual due to confusion in stacking her medications. hold BB Continue to monitor on telemetery continue Eliquis 2.5 mg po BID
[2024-09-06 21:47] VITALS: O2SAT 98
[2024-09-07] MEDS ORDERED: ONDANSETRON 4 MG (ODT) TAB PO PRN (09:06)
[2024-09-07] MEDS: APIXABAN 2.5 MG TABLET PO SCH (09:06)
[2024-09-07] MEDS: ASPIRIN 81 MG CHEWABLE TABLET PO SCH (09:41)
--- NOTE | 2024-09-07 11:26 | P.PN ---
Subjective Date of Service: 09/07/24 Chief Complaint: Slow heart rate Subjective: No new changes, No C/O voiced, Tolerating diet, Ambulating, Improving Review of Systems 10-point ROS is otherwise unremarkable Physical Examination - Vital Signs Temperature: 97.5 F Blood Pressure: 142/60 Pulse: 58 Respirations: 18 Pulse Ox (%): 96 - Physical Exam General: Alert, In no apparent distress HEENT: Atraumatic, PERRLA, EOMI Neck: Supple, JVD not distended Respiratory: Clear to auscultation bilaterally, Normal air movement Cardiovascular: Irregular heart rate/rhythm Gastrointestinal: Normal bowel sounds, No tenderness Musculoskeletal: No tenderness Integumentary: No rashes Neurological: Normal speech, Normal tone, Normal affect Lymphatics: No axilla or inguinal lymphadenopathy - Studies Medications List Reviewed: Yes Assessment And Plan - Current Problems (Diagnosis) (1) Atrial fibrillation Current Visit: Yes Status: Acute Plan: Patient mention that she was taking more BB than usual due to confusion in stacking her medications. Tele overnight did not show any pauses hold BB outpatient Holter monitor is advised. continue Eliquis 2.5 mg po BID
[2024-09-07 11:40] VITALS: BP 132/75; TEMP 97.4
[2024-09-07] MEDS ORDERED: GABAPENTIN 300 MG CAP PO SCH (14:00)
[2024-09-07] MEDS ORDERED: PANTOPRAZOLE 40MG TABLET PO SCH (16:30)
[2024-09-07] MEDS ORDERED: FUROSEMIDE 40 MG TABLET PO SCH (17:00)
[2024-09-07] MEDS ORDERED: ATORVASTATIN 80 MG TAB PO SCH (21:00)
[2024-09-08] MEDS ORDERED: LEVOTHYROXINE SOD 0.1 MG TAB PO SCH (06:30)
[2024-09-08] MEDS ORDERED: LOSARTAN POTASSIUM 50 MG TABLET PO SCH (09:00)
--- NOTE | 2024-09-08 15:55 | EKG ---
Test Date: 2024-09-05 Test Time: 17:36:50 Design Teacher: JERAMIE MEASUREMENT RESULTS: Intervals: Rate: 32 UT: QRSD: 100 QT: 560 QTc: 408 [place]: P: UT: QRS: -16 T: 43 INTERPRETIVE STATEMENTS: Undetermined rhythm Septal infarct, age undetermined Abnormal ECG Compared to ECG 05/15/2024 17:07:17 Myocardial infarct finding now present Atrial fibrillation no longer present Ventricular premature complex(es) no longer present ST (T wave) deviation no longer present Possible ischemia no longer present Electronically Signed On 09-08-24 15:50:51 CHIEF POWER DISPATCHER by Brayan Arceo
--- NOTE | 2024-09-12 02:27 | P.PN ---
Date of Service: 09/06/24 Subjective Patient clinically doing well. Patient rate controlled. Physical Examination - Vitals Reviewed - Physical Exam General: Alert, In no apparent distress, Oriented x3 Respiratory: Clear to auscultation bilaterally, Normal air movement Cardiovascular: Other (irregular bradycardia ) Gastrointestinal: Normal bowel sounds Assessment and Plan - Problems (Diagnosis) (1) Bradycardia Current Visit: Yes Status: Acute (2) Atrial fibrillation Current Visit: Yes Status: Acute (3) CKD Current Visit: Yes Status: Acute (4) Hypothyroidism Current Visit: Yes Status: Acute - Plan 84-year-old female with history of atrial fibrillation presents from primary care office to the ER with complaints of bradycardia. Atrial fibrillation with SVR Coronary artery disease Hypertension -- Admit to telemetry -- Cardiology consultation -- Beta-saul hold -- Differentials include medication, metabolic, hormonal, sick sinus syndrome CKD -- Renally dose medications Hypothyroidism --Check TSH, restart home medications Diabetes -- Fingerstick blood sugars, sliding scale insulin - Advance Directives Does patient have a Living Will: No Does patient have a Durable POA for Healthcare: No - Code Status/Comfort Care Code Status Assessed: Yes
--- NOTE | 2024-09-12 02:28 | P.DS ---
Discharge Date: 09/07/24 Disposition: ROUTINE DISCHARGE Discharge Condition: GOOD Reason for Admission: Slow heart rate Consultations: Cardiology Brief History of Present Illness: Pt is an 84-year-old female history of atrial fibrillation, coronaries, diabetes, hypertension presents from primary care office with complaints of low heart rate. Patient does have history of atrial fibrillation. She reports that recently she had her dose of metoprolol reduced. She reports that she mistakenly increased her dose of metoprolol. When she went to her primary care she was noted to have significant bradycardia and atrial fibrillation. She was recommended to come to the ER. On arrival she denied any dizziness, shortness of breath, chest pain or felt any symptoms. Hospital Course: Patient has done well during hospital stay. Patient is clinically doing much better. Labs are stable. At this time, patient is stable for discharge with outpatient follow-up with PCP and specialist. Patient is told to call me if he has any questions over the next few days and we can give patient taking care of at that time. Vital Signs/Physical Exam: Temp Pulse Resp BP Pulse Ox 97.4 F 70 18 132/75 98 09/07/24 11:38 09/07/24 11:38 09/07/24 11:38 09/07/24 11:38 09/07/24 11:38 General: Alert, In no apparent distress, Oriented x3 Laboratory Data at Discharge: WBC 8.20 thou/uL (4.3-10.9) 09/06/24 08:40 Hgb 11.1 g/dL (12.0-15.0) L D 09/06/24 08:40 Hct 33.4 % (36.0-45.0) L 09/06/24 08:40 Plt Count 157 thou/uL (152-406) 09/06/24 08:40 Sodium 142 mEq/L (136-145) 09/06/24 08:40 Potassium 3.3 mEq/L (3.5-5.1) L 09/06/24 08:40 BUN 20 mg/dL (7-18) H 09/06/24 08:40 Creatinine 1.63 mg/dL (0.55-1.02) H 09/06/24 08:40 Glucose 141 mg/dL (74-106) H 09/06/24 08:40 Magnesium 1.9 mg/dL (1.6-2.4) 09/06/24 08:40 Total Bilirubin 1.2 mg/dL (0.2-1.0) H 09/05/24 18:20 AST 50 U/L (15-37) H 09/05/24 18:20 ALT 22 U/L (13-56) 09/05/24 18:20 Alkaline Phosphatase 129 U/L (45-117) H 09/05/24 18:20 Home Medications: Apixaban [Eliquis *] 2.5 mg PO BID 11/07/22 Aspirin [Kamila Chewable Aspirin] 81 mg PO DAILY 11/07/22 Atorvastatin Calcium [Lipitor] 80 mg PO BEDTIME 11/07/22 Diphenhydramine HCl [Benadryl] 50 mg PO BID PRN 11/07/22 Gabapentin 300 mg PO TID 11/07/22 Levothyroxine [Synthroid*] 100 mcg PO DAILY 12/13/22 Potassium Gluconate [Potassium] 99 mg PO DAILY 12/13/22 Ondansetron HCl 4 mg PO Q6HP PRN 09/05/23 Losartan Potassium 25 mg PO DAILY #30 tab 09/11/23 Carboxymethylcellulose Sodium [Refresh Tears] 1 drop OPTH TID 05/20/24 Furosemide [Lasix*] 40 mg PO BIDL 30 Days #60 tab 05/23/24 Pantoprazole [Protonix Tab] 40 mg PO BIDAC 30 Days #60 tab 05/23/24 Physician Discharge Instructions: -DC IV and DC home -Follow-up with PCP (Dr. Rodriguez) in 1 to 2 weeks -Follow-up with Cardiology in 1 to 2 weeks May use [facility] Account Director that you currently see, OR Dr. Brayan Arceo in [place], [place] [phone] -Please call Dr. Gallego at [phone] if any questions regarding hospital stay -Please call nursing station at [phone] if any nursing or medication questions -Return to the emergency room if symptoms worsen Diet: AHA Activity: Fall precautions Followup: Brayan Arceo MD [ACTIVE - CAN ADMIT] - 1-2 Weeks (Or personal securities attorney in [place]) Darryl Currie DO [Primary Care Provider] - Time spent managing pt's care (in minutes): 35
== END 2024-09-07 11:33 | disposition home or self-care (01) | DRG 918 ==
LOC: ER 16:26 → ERHOLD 20:14 → 4TH 09-06 15:55
PROVIDERS: ADMIT Internal Medicine; ATTEND Hospitalist
DX: T44.7X1A Poisoning by beta-adrenoreceptor antagonists, accidental (unintentional), initial encounter (principal); R00.1 Bradycardia, unspecified; I48.91 Unspecified atrial fibrillation; E03.9 Hypothyroidism, unspecified; E78.5 Hyperlipidemia, unspecified; I12.9 Hypertensive chronic kidney disease with stage 1 through stage 4 chronic kidney disease, or unspecified chronic kidney disease; E11.22 Type 2 diabetes mellitus with diabetic chronic kidney disease; N18.9 Chronic kidney disease, unspecified; I25.10 Atherosclerotic heart disease of native coronary artery without angina pectoris; Z60.2 Problems related to living alone; Z88.1 Allergy status to other antibiotic agents; Z95.1 Presence of aortocoronary bypass graft; Z90.49 Acquired absence of other specified parts of digestive tract; Z79.01 Long term (current) use of anticoagulants; Z79.82 Long term (current) use of aspirin; Z79.890 Hormone replacement therapy; Z79.899 Other long term (current) drug therapy
CPT/HCPCS: 36415; 71045; 80048; 80076; 82947; 83735; 83880; 84439; 84443; 84484; 85025; 93005; 96365; 99285; J0612